=== PATIENT | male | born 1935 | race African-American/Black ===

== ENCOUNTER 2023-09-16 08:03 | Emergency (ER) | payer MEDICARE, SELFPAY ==
[2023-09-16] VITALS (18 sets, daily range): BP systolic 104–137; BP diastolic 64–93; PULSE 86–133; RESP 17–21; TEMP 36.3–36.4; O2SAT 99–100
--- NOTE | ~2023-09-16 | XR_ITS ---
EXAMINATION: XR chest 1V portable DATE: 09/16/2023 08:54 INDICATION: Chest pain. TECHNIQUE: A single frontal view of the chest was obtained. COMPARISON: Chest 2 views 11/24/2019 FINDINGS: There is mild atelectasis at the lung bases. No pleural effusion or pneumothorax. The heart size is normal. IMPRESSION: 1. Mild atelectasis at the lung bases. Reviewed, dictated and finalized at location E. OGEN CELL TENDER
--- NOTE | 2023-09-16 08:05 | ECG_ITS ---
Measurements Intervals [place] Rate: 131 P: MT: 0 QRS: -33 QRSD: 108 T: 128 QT: 320 QTc: 474 Interpretive Statements ATRIAL FLUTTER/TACHYCARDIA WITH RAPID VENTRICULAR RESPONSE LEFT AXIS DEVIATION INFERIOR INFARCT, AGE INDETERMINATE NONSPECIFIC ST & T-WAVE ABNORMALITY- LAT/HIGH LAT LEADS ABNORMAL ECG COMPARED TO ECG 11/24/2019 09:47:49 ATRIAL FLUTTER NOW PRESENT LEFT-AXIS DEVIATION NOW PRESENT INFERIOR INFARCT, AGE INDETERMINATE NOW PRESENT Electronically Signed On 09-16-2023 12:09:34 [employer]INTENANCE by David Coronel D.O.
[2023-09-16 08:19] LABS: Basophils Absolute Auto 0.1 K/mm3 (0.0-0.1); Basophils Percent Auto 0.8 % (0.2-1.2); Eosinophils Absolute Auto 0.4 K/mm3 (0-0.3); Eosinophils Percent Auto 4.9 % (0-4.4); Hemoglobin 14.2 g/dL (14.0-18.0); Immature Granulocyte Absolute 0.04 K/mm3 (0.00-0.031); Immature Granulocyte Percent A 0.5 % (0-0.5); Lymphocytes Absolute Auto 1.99 K/mm3 (0.9-3.2); Lymphocytes Percent Auto 27.2 % (18.3-44.2); Mean Corpuscular HGB Conc 30.2 g/dl (32-36); Mean Corpuscular Hemoglobin 26.3 pg (26-34); Mean Corpuscular Volume 87.2 fl (80-100); Mean Platelet Volume 11.7 fl (7.4-10.4); Monocytes Absolute Auto 0.7 K/mm3 (0.1-0.6); Monocytes Percent Auto 9.3 % (2.6-8.5); Neutrophils Absolute Auto 4.2 K/mm3 (1.3-6.7); Neutrophils Percent Auto 57.3 % (45.5-73.1); Platelet Count Result 197 k/mm3 (150-375); Red Blood Count 5.39 M/mm3 (4.6-6.20); Red Cell Distribution Width 15.3 % (11.5-14.5); White Blood Count 7.3 K/mm3 (4.5-10.0)
[2023-09-16 08:29] LABS: INR 0.9; Prothrombin Time 12.1 Seconds (11.1-14.7)
[2023-09-16 08:30] LABS: Partial Thromboplastin Time 31.9 SECONDS (22.3-36.8)
[2023-09-16] MEDS: dilTIAZem HCl INJ 25 MG/5 ML VIAL 10 MG IV PUSH (08:30)
[2023-09-16 08:31] LABS: Alanine Aminotransferase 22 U/L (6-50); Albumin Level 4.5 g/dL (3.5-5.1); Alkaline Phosphatase 61 U/L (38-126); Anion Gap 8 mmol/L (8-16); Aspartate Amino Transferase 20 U/L (17-59); Bilirubin,Total 0.6 mg/dL (0.2-1.3); Blood Urea Nitrogen 23 mg/dL (9-20); Carbon Dioxide 29 mmol/L (22-30); Chloride 102 mmol/L (98-107); Estimated CRCL calculation 47 ml/min; Estimated Glomerular Filt Rate > 60; Glucose 158 mg/dL (65-110); Lipase 422 U/L (23-300); Potassium 4.3 mmol/L (3.4-5.0); Sodium 139 mmol/L (137-145)
[2023-09-16] MEDS: ASPIRIN 81 MG CHEWABLE TABLET 324 MG PO (08:31)
[2023-09-16 08:42] LABS: Troponin I < 0.012 ng/mL (0.000-0.034)
--- NOTE | 2023-09-16 09:17 | ECG_ITS ---
Measurements Intervals [place] Rate: 88 P: 63 CA: 168 QRS: -24 QRSD: 94 T: 87 QT: 354 QTc: 428 Interpretive Statements SINUS RHYTHM POSSIBLE LEFT ATRIAL ENLARGEMENT NONSPECIFIC T-WAVE ABNORMALITY- HIGH LATERAL LEADS BASELINE ARTIFACT- I BORDERLINE ECG COMPARED TO ECG 09/16/2023 08:10:02 SINUS RHYTHM NOW PRESENT Electronically Signed On 09-17-2023 12:55:06 BURNER OPERATOR by David Coronel D.O.
[2023-09-16] MEDS: BELLADONNA ALK/PHENOB ELIX 10 ML, MAG HYDROX/ALUMINUM HYD/SIMETH 30 ML, LIDOCAINE HCL 2... PO (09:34)
--- NOTE | 2023-09-16 09:46 | ED.GENADULT ---
HPI - General Adult General Chief complaint: Chest Pain Stated complaint: chest pain Time Seen by Provider: 09/16/23 08:06 History of Present Illness HPI narrative: Patient is an 88-year-old male who presents ER with 2 different issues. First issue is acid reflux like chest discomfort. Reports began this morning. Burning in nature. He has been having this recurrently for months. He has had an outpatient stress test that was negative and he has not been referred to a GI doctor to have an endoscopy next couple weeks. He reports he took his blood pressure this morning discovered his heart rate was in the 130s. He does feel like his heart is racing. He has no shortness of breath. No history of arrhythmia. Denies fevers or chills or sweats. He takes no blood pressure medication or rate control medication Related Data Home Medications Medication Instructions Recorded Confirmed allopurinol 300 mg tablet 300 mg PO DAILY 11/24/19 11/24/19 aspirin 81 mg chewable tablet 81 mg PO HS 11/24/19 11/24/19 (Aspirin Childrens) metformin 500 mg tablet,extended 1,000 mg PO BID 11/24/19 11/24/19 release 24 hr omeprazole 20 mg capsule,delayed 20 mg PO DAILY 11/24/19 11/24/19 release simvastatin 40 mg tablet 40 mg PO HS 11/24/19 11/24/19 Allergies Allergy/AdvReac Type Severity Reaction Status Date / Time lisinopril AdvReac Swelling Verified 09/16/23 08:32 Review of Systems Review of Systems: All systems reviewed & are unremarkable except as noted in HPI and below Constitutional: Constitutional: Denies chills, Denies fatigue and Denies fever(s) ENT: Denies nasal congestion and Denies sore throat Cardiovascular: Cardiovascular: Reports chest pain, Reports rapid heart rate and Denies radiating jaw, neck or arm pain Respiratory: Respiratory: Denies cough and Denies dyspnea Gastrointestinal: Gastrointestinal: Denies abdominal pain, Reports heartburn, Denies nausea and Denies vomiting Genitourinary: Genitourinary: Reports no additional male genitourinary complaints Musculoskeletal: Musculoskeletal: Reports no additional musculoskeletal complaints [facility] Past Medical History Medical History (Updated 09/16/23 @ 11:15 by Arturo iVeira MD) Diabetes Duodenal ulcer Gout Hyperlipidemia Lymphadenopathy Left neck lymph node removed Surgical History Surgical History (System 10/18/21 @ 11:11 by Lyn Diggs) H/O cataract extraction Bilateral History of appendectomy History of repair of ACL On the right No pertinent past surgical history Family History Family History (System 10/18/21 @ 11:11 by Lyn Diggs) Sibling Acute myocardial infarction Cerebrovascular accident Diabetes mellitus Hypertension Mother Diabetes mellitus Social History Social History (System 10/18/21 @ 11:11 by Lyn Diggs) Social History: The patient has 3 biological children and 3 stepchildren. He is retired from a [employer] / [employer]. No alcohol or illicit drugs. His is his power estate planning attorney he desires to be a full code. Smoking status: Never smoker Alcohol intake: never Substance use: never Living arrangements: with family Occupation/Education: retired Gender identity (if verbalized by the patient): Male Spiritual care concerns: No Exam Narrative: GENERAL: Well-appearing, well-nourished, and in no acute distress. HEAD: Normocephalic, atraumatic. ENT: Mucous membranes moist. NECK: Supple. CHEST: Clear to auscultation. No respiratory distress. HEART: Tachycardic and regular. Normal peripheral pulses. ABDOMEN: Soft, nontender, nondistended. EXTREMITIES: Normal range of motion. No edema. SKIN: Warm, dry, no rash. NEURO: Alert and oriented x3. PSYCH: Normal mood and affect. Course Course Emergency Course: Patient resting comfortably. Heart rate improved with diltiazem. Burning sensation improved with GI cocktail. Discussed case with Amena Macias at [facility]
--- NOTE | 2023-09-16 11:04 | PC.NURSE ---
Pt states chest pain improved. Heart rate improved. Pt resting conversing with no distress noted.
[2023-09-16 11:49] LABS: Troponin I < 0.012 ng/mL (0.000-0.034)
== END 2023-09-16 11:57 | disposition home or self-care (01) ==
PROVIDERS: Emergency Provider Emergency Medicine; PCP Internal Medicine
DX: I48.92 Unspecified atrial flutter (principal); E11.9 Type 2 diabetes mellitus without complications; E78.5 Hyperlipidemia, unspecified; M10.9 Gout, unspecified; Z98.42 Cataract extraction status, left eye; Z98.41 Cataract extraction status, right eye; Z79.84 Long term (current) use of oral hypoglycemic drugs; Z79.82 Long term (current) use of aspirin; R94.31 Abnormal electrocardiogram [ECG] [EKG]
CPT/HCPCS: 36415; 71045; 80053; 83690; 84484; 85025; 85610; 85730; 93005; 96374; 99284; A9270

== ENCOUNTER 2023-10-15 11:11 | Day surgery (SDC) | payer MEDICARE, SELFPAY ==
[2023-09-12 12:42] VITALS: BMI 24.1
--- NOTE | 2023-10-15 11:40 | PM.HPGS ---
History of Present Illness History of Present Illness Consent: Risks, benefits, and alternatives have been discussed and questions answered. Patient agrees to proceed with procedure. Chief complaint: Gerd Narrative: Gene Yen is a 88 year old male presents for EGD. Has a long history of acid reflux and heartburn. Patient denies any dysphagia. He has no weight loss. He does have associated coronary artery disease. He is on Eliquis. He does take omeprazole daily. He frequently has to supplement this with Maalox. Maalox helps immediately. Patient presents today for EGD. Review of Systems Review of Systems: Review of systems is noncontributory. [facility] Past Medical History Medical History (Updated 10/15/23 @ 11:42 by Julian Brewster MD) Diabetes Duodenal ulcer Gout Hyperlipidemia Lymphadenopathy Left neck lymph node removed Surgical History Surgical History (System 10/18/21 @ 11:11 by Lyn Diggs) H/O cataract extraction Bilateral History of appendectomy History of repair of ACL On the right No pertinent past surgical history Family History Family History (System 10/18/21 @ 11:11 by Lyn Diggs) Sibling Acute myocardial infarction Cerebrovascular accident Diabetes mellitus Hypertension Mother Diabetes mellitus Social History Social History (System 10/18/21 @ 11:11 by Lyn Diggs) Social History: The patient has 3 biological children and 3 stepchildren. 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 No alcohol or illicit drugs. His is his power attorney lawyer he desires to be a full code. Smoking status: Never smoker Alcohol intake: never Substance use: never Living arrangements: with family Occupation/Education: retired Gender identity (if verbalized by the patient): Male Spiritual care concerns: No Meds Home Medications and Allergies Home Medications Medication Instructions Recorded Confirmed Type allopurinol 300 mg tablet 300 mg PO DAILY 11/24/19 10/02/23 History aspirin 81 mg chewable tablet 81 mg PO HS 11/24/19 10/02/23 History (Aspirin Childrens) metformin 500 mg tablet,extended 1,000 mg PO BID 11/24/19 10/02/23 History release 24 hr omeprazole 20 mg capsule,delayed 20 mg PO DAILY 11/24/19 10/02/23 History release simvastatin 40 mg tablet 40 mg PO HS 11/24/19 10/02/23 History apixaban 5 mg tablet (Eliquis) 5 mg PO BID #14 tabs 09/16/23 10/02/23 Rx diltiazem HCl 120 mg 120 mg PO DAILY 10/02/23 10/02/23 History capsule,extended release 12 hr Allergies Allergy/AdvReac Type Severity Reaction Status Date / Time lisinopril AdvReac Swelling Verified 10/02/23 08:09 Exam Narrative: Physical exam reveals patient to be alert. Vital signs stable. HEENT exam is unremarkable. Patient is anicteric. Lungs are clear to auscultation and to percussion. Is without murmur or extra sounds. Abdomen bowel sounds are present soft nontender with no organomegaly. Digital external rectal exam is normal. Const: General: comfortable Assessment and Plan Assessment and plan (1) GERD (gastroesophageal reflux disease): Code(s): K21.9 - Gastro-esophageal reflux disease without esophagitis Status: Acute Assessment and Plan: Patient with acid reflux that is chronic. EGD will be assess appropriateness of therapy. Continued anti-reflux measures encourage. Further recommendations may be given after endoscopy.
[2023-10-15 11:45] VITALS: BP 122/76; PULSE 84; RESP 16; TEMP 36.9; O2SAT 99
[2023-10-15] MEDS: LACTATED RINGERS 1,000 ML 150 ML IV CONT (11:58)
[2023-10-15 12:00] LABS: Glucose Point of Care 137 mg/dl (65-105)
--- NOTE | 2023-10-15 12:46 | WPDANESEPPF ---
Anes - Initial Pre Proc Eval Procedure: Operation Date: 10/15/23 13:00 Proposed Procedures p Esophagogastroduodenoscopy - Julian Brewster MD Date/Time: 10/15/23 12:46 Surgeon: Julian Brewster MD Pre Op Diagnosis: Gerd Patient Data Age: 88 Gender: M Height: 1.8 m Weight: 75 kg Last Vital Signs Temp 36.9 C 10/15/23 11:45 Pulse 84 10/15/23 11:45 Resp 16 10/15/23 11:45 BP 122/76 10/15/23 11:45 Pulse Ox 99 10/15/23 11:45 O2 Del Method Room Air 10/15/23 11:45 Allergies Allergy/AdvReac Type Severity Reaction Status Date / Time lisinopril AdvReac Swelling Verified 10/15/23 11:44 Home Medications Medication Instructions Recorded Confirmed Type allopurinol 300 mg tablet 300 mg PO DAILY 11/24/19 10/02/23 History aspirin 81 mg chewable tablet 81 mg PO HS 11/24/19 10/02/23 History (Aspirin Childrens) metformin 500 mg tablet,extended 1,000 mg PO BID 11/24/19 10/02/23 History release 24 hr omeprazole 20 mg capsule,delayed 20 mg PO DAILY 11/24/19 10/02/23 History release simvastatin 40 mg tablet 40 mg PO HS 11/24/19 10/02/23 History apixaban 5 mg tablet (Eliquis) 5 mg PO BID #14 tabs 09/16/23 10/02/23 Rx diltiazem HCl 120 mg 120 mg PO DAILY 10/02/23 10/02/23 History capsule,extended release 12 hr Laboratory Tests 10/15/23 11:56 POC Capillary Glucose 137 H mg/dl (65-105) Patient hx anesthesia problems: none Family hx anesthesia problems: none Results Review: All pre-operative results and documents have been reviewed as part of the pre-operative evaluation. [facility] Past Medical History Medical History Diabetes Duodenal ulcer Gout Hyperlipidemia Lymphadenopathy Left neck lymph node removed Surgical History Surgical History H/O cataract extraction Bilateral History of appendectomy History of repair of ACL On the right No pertinent past surgical history Family History Family History Sibling Acute myocardial infarction Cerebrovascular accident Diabetes mellitus Hypertension Mother Diabetes mellitus Social History Social History Social History: The patient has 3 biological children and 3 stepchildren. 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 No alcohol or illicit drugs. His is his power tax attorney he desires to be a full code. Smoking status: Never smoker Alcohol intake: never Substance use: never Living arrangements: with family Occupation/Education: retired Gender identity (if verbalized by the patient): Male Spiritual care concerns: No Anes - Eval Final PreProcedure Day of Procedure 10/15/23 12:46 Patient weight: normal Heart: regular rate and rhythm Lungs: clear to auscultation Airway: Mallampati scale class II Neurological: alert and oriented Last oral intake: >/= 8 hours ASA classification: III Emergent: no Anesthetic plan: proceed Anesthesia type and monitoring: general GIVS and standard monitoring Results Review: All pre-operative results and documents have been reviewed as part of the pre-operative evaluation. Informed Consent: The patient's anesthetic plan and its attendant risks and benefits were discussed with the patient/family/POA. Questions were solicited and answers provided to the satisfaction of the patient/family/POA.
[2023-10-15 13:04] VITALS: BP 119/68; PULSE 82; RESP 16; O2SAT 100
--- NOTE | 2023-10-15 13:06 | WPDANESPN ---
Anes - Prog Note Post-Op Date/Time: 10/15/23 13:06 Cardiovascular status: normal Respiratory status: normal Airway patency: baseline Mental status: baseline Post-Op hydration status: normal Vital Signs: Last Vital Signs Temp 36.9 C 10/15/23 11:45 Pulse 82 10/15/23 13:04 Resp 16 10/15/23 13:04 BP 119/68 10/15/23 13:04 Pulse Ox 100 10/15/23 13:04 O2 Del Method Room Air 10/15/23 13:04 Pain Score (VAS): 0/10 10/15/23 11:56 POC Capillary Glucose 137 H Patient Feedback: Patient satisfied with anesthetic care.
[2023-10-15 13:25] VITALS: BP 122/65; PULSE 80; RESP 16; O2SAT 99
[2023-10-15 13:42] VITALS: BP 119/72; PULSE 78; RESP 16; O2SAT 99
== END 2023-10-15 13:51 | disposition home or self-care (01) ==
PROVIDERS: PCP Internal Medicine; Visit Provider Internal Medicine Gastroenterology
PROC: 0DJ08ZZ Inspection of Upper Intestinal Tract, Via Natural or Artificial Opening Endoscopic (ICD-10-PCS; CPT 43235; principal; 2023-10-15 13:00)
DX: K21.9 Gastro-esophageal reflux disease without esophagitis (principal); R12 Heartburn
CPT/HCPCS: 43235

== ENCOUNTER 2023-10-23 08:10 | Outpatient (CLI) | payer MEDICARE, SELFPAY ==
--- NOTE | ~2023-10-23 | XR_ITS ---
EXAMINATION: XR UGIAC wo kub DATE: 10/23/2023 09:04 INDICATION: Gastric esophageal reflux disease without esophagitis TECHNIQUE: The patient drank thick barium, gas-producing crystals, and thin barium. A total of 737 fl uoroscopic images of the esophagus, stomach, and proximal small bowel were obtained. Fluoroscopy expo sure time was 1.8 minutes. Total DAP was 14.207 Gycm^2 COMPARISON: None. 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 The esophagus is otherwise nor mal without mass or stricture. Esophageal motility is normal. There is elevation of the central port ion of the diaphragm on both the left and right resulting in a significant greater than typical degre e of cephalad extension of the gastric fundus and proximal body of level of the gastroesophageal junc tion. The configuration of the diaphragm with deep sulci can be best appreciated on prior chest radio graph dated 09/16/2023. There is however no hiatal hernia. The stomach is otherwise normal. There was no gastroesophageal reflux with provocative maneuvers. The proximal small bowel is unremarkable. IMPRESSION: 1. No hiatal hernia. Findings on prior endoscopy. This results from elevation of the central aspect o f both the left and right sides of the diaphragm resulting in positioning of the gastric fundus and p roximal body significantly above the level of the gastroesophageal junction. When 2. 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 Reviewed, dictated and finalized at location A. BUILDER IMPRESSION: 1. No hiatal hernia. Findings on prior endoscopy. This results from elevation o f the central aspect of both the left and right sides of the diaphragm resultin g in positioning of the gastric fundus and proximal body significantly above th e level of the gastroesophageal junction. When 2. 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
== END 2023-10-23 08:11 | disposition home or self-care (01) ==
PROVIDERS: PCP Internal Medicine; Visit Provider Internal Medicine Gastroenterology
DX: K22.5 Diverticulum of esophagus, acquired (principal); K21.9 Gastro-esophageal reflux disease without esophagitis
CPT/HCPCS: 74246

== ENCOUNTER 2024-01-21 09:42 | Inpatient (IN) | payer MEDICARE, SELFPAY ==
[2024-01-21] VITALS (21 sets, daily range): BP systolic 107–145; BP diastolic 72–97; PULSE 98–146; RESP 18–28; TEMP 36.4–36.9; O2SAT 95–99; BMI 22.5
--- NOTE | ~2024-01-21 | XR_ITS ---
EXAMINATION: XR abdomen gastric tube insert DATE: 01/29/2024 00:57 INDICATION: Nasogastric tube placement. TECHNIQUE: An upright view of the abdomen was obtained. COMPARISON: CT abdomen and pelvis 01/21/2024 FINDINGS: The lower abdomen is excluded. There are multiple dilated loops of small bowel. The nasogas tric tube tip is in the stomach. Skin anthony overlie the abdomen. IMPRESSION: 1. Nasogastric tube tip in the stomach. 2. Dilated small bowel, likely adynamic ileus. Reviewed, dictated and finalized at location E.
--- NOTE | ~2024-01-21 | CT_ITS ---
CT of the Abdomen and Pelvis: Indication: Obstruction, bowel Technique: 2.5 mm axial scans were obtained through the abdomen and pelvis following intravenous adm inistration of 100 cc of Omnipaque 350. Dose reduction technique was used on this scan by utilizing a utomated exposure control and iterative reconstruction technique. The dose-length product (DLP) was 2 98.19 mGy-cm. Findings: Scans through the lung bases are unremarkable. There is minimal intrahepatic biliary dilatation. Small hepatic cysts are present. The spleen, pancre as, adrenals and kidneys are within normal limits. Gallstones are present. There are atherosclerotic calcifications of the aorta. No lymphadenopathy. Multiple dilated small bowel loops are present, with associated distention of stomach. There is trans ition point in the low anterior abdomen in the midline (sagittal images 77-74). Distal small bowel lo ops and large bowel are decompressed. Images through the pelvis were performed. Small right inguinal hernia contains small amount of asciti c fluid and fat. Trace pelvic ascites present otherwise. Urinary bladder unremarkable. No pelvic mass seen. Impression: Small bowel obstruction, transition point, as detailed above. Cholelithiasis with minimal intrahepatic biliary dilatation. There is any concern for common duct sto ne, then consider MRCP for further evaluation. Small right inguinal hernia with small amount of ascites. Reviewed, dictated and finalized at location . Impression: Small bowel obstruction, transition point, as detailed above. Cholelithiasis with minimal intrahepatic biliary dilatation. There is any ar rn for common duct stone, then consider MRCP for further evaluation. Small right inguinal hernia with small amount of ascites.
--- NOTE | ~2024-01-21 | XR_ITS ---
Supine and upright views of the abdomen Clinical history: Small bowel obstruction Findings: Multiple dilated loops of small bowel are present. No definite free air. NG tube in place. No abnormal mass lesion or calcification is seen. Osseous structures are intact. Impression: Small bowel obstruction with NG tube in place. Reviewed, dictated and finalized at [facility]. Impression: Small bowel obstruction with NG tube in place.
--- NOTE | ~2024-01-21 | XR_ITS ---
XR abdomen gastric tube insert DATE: 01/21/2024 13:34 INDICATION: NG tube placement TECHNIQUE: Portable upright AP view on 01/21/2024 at 1331 hours COMPARISON: None FINDINGS: An NG tube is present in the stomach, well beyond the diaphragmatic hiatus, distal tip over lying the body of the stomach. Dilated gas distended small bowel segments are noted suggesting small bowel obstruction. IMPRESSION: NG tube in body of stomach Reviewed, dictated and finalized at Location [facility]. Reviewed, dictated and finalized at location B. IMPRESSION: NG tube in body of stomach
--- NOTE | 2024-01-21 11:58 | ECG_ITS ---
Measurements Intervals [place] Rate: 142 P: [place]: 0 QRS: -6 QRSD: 147 T: 136 QT: 328 QTc: 505 Interpretive Statements ATRIAL FLUTTER WITH RAPID VENTRICULAR RESPONSE INTRAVENTRICULAR CONDUCTION DELAY BORDERLINE ST-T WAVE ABNORMALITY- ANTEROLAT/HIGH LAT LEADS ABNORMAL ECG COMPARED TO ECG 09/16/2023 09:19:24 ATRIAL FLUTTER NOW PRESENT INTRAVENTRICULAR CONDUCTION DELAY NOW PRESENT Electronically Signed On 01-21-2024 13:06:15 CDT by David Coronel D.O.
[2024-01-21 12:19] LABS: Basophils Percent Auto 0.4 % (0.2-1.2); Eosinophils Percent Auto 0.2 % (0-4.4); Hematocrit 50.3 % (42.0-52.0); Hemoglobin 15.4 g/dL (14.0-18.0); Immature Granulocyte Absolute 0.03 K/mm3 (0.00-0.031); Immature Granulocyte Percent A 0.3 % (0-0.5); Lymphocytes Absolute Auto 1.12 K/mm3 (0.9-3.2); Lymphocytes Percent Auto 10.5 % (18.3-44.2); Mean Corpuscular HGB Conc 30.6 g/dl (32-36); Mean Corpuscular Hemoglobin 27.1 pg (26-34); Mean Corpuscular Volume 88.4 fl (80-100); Mean Platelet Volume 10.5 fl (7.4-10.4); Monocytes Absolute Auto 1.1 K/mm3 (0.1-0.6); Monocytes Percent Auto 9.9 % (2.6-8.5); Neutrophils Absolute Auto 8.4 K/mm3 (1.3-6.7); Neutrophils Percent Auto 78.7 % (45.5-73.1); Platelet Count Result 252 k/mm3 (150-375); Red Blood Count 5.69 M/mm3 (4.6-6.20); Red Cell Distribution Width 14.4 % (11.5-14.5); White Blood Count 10.6 K/mm3 (4.5-10.0)
[2024-01-21 12:32] LABS: Alanine Aminotransferase 19 U/L (6-50); Albumin Level 4.5 g/dL (3.5-5.1); Alkaline Phosphatase 65 U/L (38-126); Anion Gap 10 mmol/L (8-16); Aspartate Amino Transferase 24 U/L (17-59); Blood Urea Nitrogen 36 mg/dL (9-20); Calcium 10.1 mg/dL (8.4-10.2); Carbon Dioxide 29 mmol/L (22-30); Chloride 98 mmol/L (98-107); Estimated CRCL calculation 48 ml/min; Estimated Glomerular Filt Rate > 60; Glucose 177 mg/dL (65-110); Lipase 296 U/L (23-300); Potassium 4.4 mmol/L (3.4-5.0); Sodium 137 mmol/L (137-145)
--- NOTE | 2024-01-21 12:37 | ED.ABDPAIN ---
HPI - Abdominal Pain General Chief Complaint: Abdominal Pain Stated Complaint: ulcer attack Time Seen by Provider: 01/21/24 11:48 History of Present Illness HPI narrative: patient is an 88-year-old male who presents ER with abdominal pain. Ongoing for 3 days. Start with sharp cramping in lower abdomen. It is continued it is worsened by any eating. He notice a that he is more distended. He has frequent belching. No vomiting. Denies fevers or chills or sweats. Has history of appendectomy. No history of bowel obstruction. He has not passed gas or had a bowel movement since Sunday. Patient has also not been taking his medications and his last Eliquis was on Sunday afternoon. Related Data Home Medications Medication Instructions Recorded Confirmed allopurinol 300 mg tablet 300 mg PO DAILY 11/24/19 01/21/24 metformin 500 mg tablet,extended 1,000 mg PO BID 11/24/19 01/21/24 release 24 hr omeprazole 20 mg capsule,delayed 20 mg PO DAILY 11/24/19 01/21/24 release simvastatin 40 mg tablet 40 mg PO HS 11/24/19 01/21/24 diltiazem HCl 120 mg 120 mg PO DAILY 10/02/23 01/21/24 capsule,extended release 12 hr dapagliflozin propanediol 10 mg 10 mg PO DAILY 01/21/24 01/21/24 tablet (Farxiga) ferrous sulfate 325 mg (65 mg 325 mg PO DAILY 01/21/24 01/21/24 iron) tablet,delayed release meloxicam 15 mg tablet 15 mg PO DAILY 01/21/24 01/21/24 ranolazine 500 mg tablet,extended 500 mg PO BID 01/21/24 01/21/24 release,12 hr Allergies Allergy/AdvReac Type Severity Reaction Status Date / Time lisinopril AdvReac Swelling Verified 01/21/24 16:05 Review of Systems Review of Systems: All systems reviewed & are unremarkable except as noted in HPI and below Constitutional: Constitutional: Reports no additional constitutional complaints ENT: Reports system reviewed and no additional complaints, except as documented Cardiovascular: Cardiovascular: Reports no additional cardiovascular complaints Respiratory: Respiratory: Reports no additional respiratory complaints Gastrointestinal: Gastrointestinal: Reports abdominal pain, Reports bloating, Reports constipation, Denies diarrhea, Reports nausea and Denies vomiting Genitourinary: Genitourinary: Reports no additional male genitourinary complaints [facility] Past Medical History Medical History (Updated 01/21/24 @ 19:48 by Arturo Vieira MD) Chronic anticoagulation Duodenal ulcer Gastroesophageal reflux disease Gout Hyperlipidemia Osteoarthritis Paroxysmal atrial fibrillation Type 2 diabetes mellitus Surgical History Surgical History (Updated 01/21/24 @ 16:54 by Rena Preciado PA-C) History of appendectomy History of bilateral cataract extraction History of esophagogastroduodenoscopy (10/2023) History of repair of ACL Right Family History Family History Sibling Acute myocardial infarction Cerebrovascular accident Diabetes mellitus Hypertension Mother Diabetes mellitus Social History Social History (Updated 01/21/24 @ 16:55 by Rena Preciado PA-C) Social History: Surrogate medical decision maker: Ling Dallas, spouse. Code status: Full code. Smoking status: Never smoker Alcohol intake: never Substance use: never Substance use type: does not use Do You Feel Safe in your Home?: Yes Lack of Transportation: No Lack of Food: Never True Current Housing: I Have Housing Concerned About Future Housing: No Difficulty Paying Gas/Electric Bills: No Difficulty Paying for Meds: No Currently Unemployed: No Education: Don't Know Difficulty w/ Childcare or Family Care: No Living arrangements: with family Additional living arrangements comments: Lives in [place]. He has three biological children. Occupation/Education: retired Additional occupation/education comments: Retired from [employer] / [employer]. Spiritual care concerns: No
--- NOTE | 2024-01-21 13:45 | PM.CNGS ---
Assessment and Plan Assessment and plan (1) Small bowel obstruction: Code(s): K56.609 - Unspecified intestinal obstruction, unspecified as to partial versus complete obstruction Status: Acute Assessment and Plan: CT showed evidence of a small bowel obstruction with transition point in the lower midline anterior abdomen, which is a similar location to his lower midline scar from his previous exploratory laparotomy with appendectomy. WBC 10,600 and I will add a lactic acid. He does not have any diffuse peritoneal signs on exam. Will continue with NG tube decompression, bowel rest, IV fluids, and analgesics as needed. Will continue to monitor with serial abdominal exams and imaging. May consider a water soluble small bowel follow through to further evaluate the small bowel obstruction depending on how he progresses. (2) Diabetes: Code(s): E11.9 - Type 2 diabetes mellitus without complications Status: Chronic (3) GERD (gastroesophageal reflux disease): Code(s): K21.9 - Gastro-esophageal reflux disease without esophagitis Status: Acute (4) Hyperlipidemia: Code(s): E78.5 - Hyperlipidemia, unspecified Status: Chronic (5) Right inguinal hernia: Code(s): K40.90 - Unilateral inguinal hernia, without obstruction or gangrene, not specified as recurrent Status: Acute Assessment and Plan: Small right inguinal hernia containing fat and ascitic fluid on CT. Currently asymptomatic. No an acute issues, but made the patient aware of this finding and discussed that he could follow-up as an outpatient if he has any issues and wanted to discuss options for surgical repair. Plan I have discussed the patient's case and plan of care with Dr. Reed. Thank you for allowing us to see the patient in consultation and we will continue to follow along with you. History of Present Illness Consult details Consult date: 01/21/24 Reason for consult: other (SBO) Requesting physician: Arturo Vieira MD Narrative: This is an 88-year-old man who has a history of atrial fibrillation on Eliquis, type 2 diabetes mellitus, hyperlipidemia, and gout, who presented to the ER today with complaints of generalized abdominal pain x 3 days. His pain started on Sunday and progressively worsened over the next few days. As his pain got worse, he began to feel more bloated and felt his abdomen became more distended. He had a small bowel movement 2 days ago, but no bowel function since. He came into the ER and labs significant for a WBC count of 10,600. CT scan of the abdomen and pelvis showed a small bowel obstruction with transition point in the mid lower anterior abdomen. Our service was consulted by the ED physician and an NG tube was placed. The patient is now seen in the ER. He denies flatus. He denies ever having a bowel obstruction in the past. About 18 years ago, he reports having an exploratory laparotomy with findings of appendicitis and having an appendectomy. He had an ileus postoperatively that improved with NG tube decompression. No other abdominal surgeries. He is also on Eliquis and last took this medication Sunday evening. Review of Systems Review of Systems: All systems reviewed & are unremarkable except as noted in HPI and below PMFSH Past Medical History Medical History Diabetes Duodenal ulcer Gout Hyperlipidemia Lymphadenopathy Left neck lymph node removed Surgical History Surgical History H/O cataract extraction Bilateral History of appendectomy History of repair of ACL On the right No pertinent past surgical history Family History Family History Sibling Acute myocardial infarction Cerebrovascular accident Diabetes mellitus Hypertension Mother Diabetes mellitus Social History Social History (Reviewed
[2024-01-21] MEDS: dilTIAZem HCl INJ 25 MG/5 ML VIAL 10 MG IV PUSH (14:11)
[2024-01-21] MEDS: SODIUM CHLORIDE 0.9% IV 1,000 ML 125 ML IV CONT (14:12)
[2024-01-21 15:09] LABS: Lactic Acid Reflex 1.3 mmol/L (0.7-2.0)
--- NOTE | 2024-01-21 16:04 | ADMGEN ---
This patient, Gene Yen, was admitted to [facility] Surg Room 319-01. Patient/family oriented to hospital policies and general routines including ID bracelet, bed and alarms, visiting hours, pain management, procedures, bathroom and other care routines, personal items, smoking policy, room service/diet, and visiting hours. Information on how to activate the Rapid Response Team has been discussed. Patient/Family are encouraged to report perceived risks to care and to ask questions if they do not understand what they are told or what they should do.
[2024-01-21 16:07] LABS: Glucose Point of Care 206 mg/dl (65-105)
--- NOTE | 2024-01-21 16:50 | PM.IMHP ---
H&P: HPI History of Present Illness Date/Time: 01/21/24 16:50 Chief Complaint: Abdominal pain. 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 The patient provides the following history. He reports a gradual onset progressive, diffuse sharp abdominal pain with bloating, distention, and nausea with 1 episode of nonbilious and nonbloody emesis. His symptoms seem to be worse with each day and are not getting better. His last bowel movement about 2 days ago and reports that it was small but otherwise unremarkable. He has not had exact symptoms like this before but reports that 18 years ago he had abdominal pain leading to an exploratory laparotomy at which time he was found to have appendicitis. He had a postoperative ileus at that time which improved with conservative therapy. He has not had any other abdominal surgeries. He denies fever, chills, sweats, chest pain, pleuritic pain, shortness of breath, hematemesis, melena, and hematochezia. No known history of peptic ulcers, gallbladder disease, or pancreatitis. In the ED: He was afebrile on arrival with stable blood pressures. Heart rate was initially in the 130s to 140s and he was found to be in atrial fibrillation with rapid ventricular response. He was given 10 mg IV diltiazem with some improvement in his heart rate. CT of the abdomen and pelvis showed small-bowel obstruction with a transition point in the mid lower anterior abdomen. An NG tube has been placed for decompression and he is being admitted in this setting for further treatment and surgery consultation. Review of Systems Review of Systems: Twelve systems were reviewed and are negative except for as per HPI. [facility] Past Medical History Medical History Chronic anticoagulation Duodenal ulcer Gastroesophageal reflux disease Gout Hyperlipidemia Osteoarthritis Paroxysmal atrial fibrillation Type 2 diabetes mellitus Surgical History Surgical History History of appendectomy History of bilateral cataract extraction History of esophagogastroduodenoscopy (10/2023) History of repair of ACL Right Family History Family History Sibling Acute myocardial infarction Cerebrovascular accident Diabetes mellitus Hypertension Mother Diabetes mellitus Social History Social History Social History: Surrogate medical decision maker: Ling Dallas, spouse. Code status: Full code. Smoking status: Never smoker Alcohol intake: never Substance use: never Substance use type: does not use Do You Feel Safe in your Home?: Yes Lack of Transportation: No Lack of Food: Never True Current Housing: I Have Housing Concerned About Future Housing: No Difficulty Paying Gas/Electric Bills: No Difficulty Paying for Meds: No Currently Unemployed: No Education: Don't Know Difficulty w/ Childcare or Family Care: No Living arrangements: with family Additional living arrangements comments: Lives in [place]. He has three biological children. Occupation/Education: retired Additional occupation/education comments: Retired from [employer]. Spiritual care concerns: No Meds Home Medications and Allergies Home Medications Medication Instructions Recorded Confirmed Type allopurinol 300 mg tablet 300 mg PO DAILY 11/24/19 01/21/24 History metformin 500 mg tablet,extended 1,000 mg PO BID 11/24/19 01/21/24 History rele
--- NOTE | 2024-01-21 16:57 | ECG_ITS ---
Measurements Intervals [place] Rate: 108 P: 63 ND: 157 QRS: 3 QRSD: 103 T: 94 QT: 329 QTc: 442 Interpretive Statements SINUS TACHYCARDIA ATRIAL PREMATURE COMPLEX BORDERLINE ST-T WAVE ABNORMALITY- ANTEROLAT/HIGH LAT LEADS ABNORMAL ECG COMPARED TO ECG 01/21/2024 12:00:33 SINUS TACHYCARDIA NOW PRESENT Electronically Signed On 01-21-2024 19:28:33 CDT by David Coronel D.O.
[2024-01-21] MEDS: ERTAPENEM 1 GM/NS 50 ML 1 GM/50 ML BAG IVPB (17:39)
[2024-01-22] VITALS (17 sets, daily range): BP systolic 96–137; BP diastolic 61–80; PULSE 85–150; RESP 16–20; TEMP 36.6–37.1; O2SAT 95–97
[2024-01-22] MEDS: SODIUM CHLORIDE 0.9% IV 1,000 ML 75 ML IV CONT ×2 (00:01→12:46)
[2024-01-22 00:10] LABS: Glucose Point of Care 172 mg/dl (65-105)
[2024-01-22 06:07] LABS: Appearance Urine Clear (Clear); Bacteria Urine None Seen /hpf; Bilirubin Urine Negative (Negative); Blood Urine Negative (Negative); Color Urine Yellow (Yellow); Glucose Urine UA 3+ mg/dL (Negative); Ketones Urine 2+ mg/dL (Negative); Leukocyte Esterase Ur Negative LEU/UL (Negative); Nitrate Urine Negative (Negative); Non Pathogenic Casts 0-2; Protein Urine 1+ mg/dL (Negative); RBC Urine 0-2 /hpf (0-2); Squamous Epithelial Cell Urine None Seen /hpf (Few); Urobilinogen Urine 0.2 mg/dL (<2.0); WBC Urine 0-5 /hpf (0-3)
[2024-01-22 06:14] LABS: Add Urine Microscopic? YES; Specific Grav Ur 1.057 (1.001-1.035)
[2024-01-22 07:02] LABS: Basophils Percent Auto 0.4 % (0.2-1.2); Eosinophils Percent Auto 0.6 % (0-4.4); Hematocrit 44.5 % (42.0-52.0); Hemoglobin 13.7 g/dL (14.0-18.0); Immature Granulocyte Absolute 0.02 K/mm3 (0.00-0.031); Immature Granulocyte Percent A 0.3 % (0-0.5); Lymphocytes Absolute Auto 0.66 K/mm3 (0.9-3.2); Lymphocytes Percent Auto 9.3 % (18.3-44.2); Mean Corpuscular HGB Conc 30.8 g/dl (32-36); Mean Corpuscular Hemoglobin 27.1 pg (26-34); Mean Corpuscular Volume 88.1 fl (80-100); Mean Platelet Volume 10.9 fl (7.4-10.4); Monocytes Absolute Auto 1.1 K/mm3 (0.1-0.6); Monocytes Percent Auto 15.3 % (2.6-8.5); Neutrophils Absolute Auto 5.2 K/mm3 (1.3-6.7); Neutrophils Percent Auto 74.1 % (45.5-73.1); Platelet Count Result 222 k/mm3 (150-375); Red Blood Count 5.05 M/mm3 (4.6-6.20); Red Cell Distribution Width 14.4 % (11.5-14.5); White Blood Count 7.1 K/mm3 (4.5-10.0)
[2024-01-22 07:12] LABS: Lactic Acid Reflex 1.1 mmol/L (0.7-2.0)
[2024-01-22 07:15] LABS: Anion Gap 7 mmol/L (8-16); Blood Urea Nitrogen 35 mg/dL (9-20); Calcium 9.2 mg/dL (8.4-10.2); Carbon Dioxide 29 mmol/L (22-30); Chloride 103 mmol/L (98-107); Estimated CRCL calculation 55 ml/min; Estimated Glomerular Filt Rate > 60; Glucose 163 mg/dL (65-110); Potassium 3.8 mmol/L (3.4-5.0); Sodium 139 mmol/L (137-145)
--- NOTE | 2024-01-22 07:38 | PM.IMPN ---
Progress Note: A&P Assessment and Plan (1) Small bowel obstruction: Code(s): K56.609 - Unspecified intestinal obstruction, unspecified as to partial versus complete obstruction Status: Acute Assessment and Plan: NPO except ice chips, NG tube to suction, surgery has evaluated patient uncertain if he will dose to the operating room or not at this time. Surgery started patient on ertapenem once daily IV. (2) Atrial fibrillation with rapid ventricular response: Code(s): I48.91 - Unspecified atrial fibrillation Status: Acute Assessment and Plan: Generally rate controlled with occasional paroxysms that increase heart rate. Continue telemetry monitoring. P.r.n. IV metoprolol. Oral medications held at this time due to bowel obstruction. No anticoagulation due to possible need for operative intervention. Rhythm is switching frequently from sinus to atrial fibrillation per review of telemetry. (3) Type 2 diabetes mellitus: Code(s): E11.9 - Type 2 diabetes mellitus without complications Status: Acute Assessment and Plan: Fingerstick glucose every 6 hours while NPO with sliding scale insulin. (4) Chronic anticoagulation: Code(s): Z79.01 - [facility] (current) use of anticoagulants Status: Acute Assessment and Plan: On hold at this time due to bowel obstruction and possible need to proceed to the OR. (5) Gastroesophageal reflux disease: Code(s): K21.9 - Gastro-esophageal reflux disease without esophagitis Status: Acute Assessment and Plan: IV pantoprazole while NPO Plan Defer management of small-bowel obstruction to General surgery, continue care as above, maintain telemetry monitoring until stable. Time Spent With Patient Time with patient: 25 - 35 minutes Subjective Date/time seen: 01/22/24 07:38 Interval history: Patient seen early this morning still not passing gas but states his abdominal pain has significantly decreased. Repeat abdominal imaging still shows dilated small bowel loops. Patient denies nausea. NG tube to suction minimal output. Oral medications are held at this time due to small-bowel obstruction. No anticoagulation due to possible need for surgery. Ordered SCDs to be placed. Review of Systems Review of Systems: All systems reviewed & are unremarkable except as noted in HPI and below Exam Narrative: General: Well-developed gentleman appearing younger than his stated age in the semi-Purdy position in bed in no distress. HEENT: PERRL, EOMI. Sclera anicteric. NG tube in the left naris with minimal drainage. Tacky mucous membranes. Neck: Supple. No JVD Respiratory: Lungs are clear to auscultation bilaterally. Cardiovascular: variable heart rate from 80 to 130 switching from sinus rhythm to atrial fibrillation telemetry monitoring per my own assessment. Gastrointestinal: Abdomen is slightly distended with hypoactive bowel sounds. Mild tenderness to palpation throughout, more so in the right mid to lower quadrant. No guarding or rebound tenderness. Skin: Warm and dry. No rash or lesions on limited exam. Extremities: No cyanosis, clubbing, or edema. Radial and pedal pulses intact. Neurological: Alert. Cranial nerves 2-12 are grossly intact. No gross focal deficits to casual conversation. Psychiatric: Pleasant and cooperative with normal mood and affect. Judgment and insight intact. Objective Data Vital Signs Vital Signs: Vital Signs - 24 hr 01/21/24 09:44 01/21/24 11:52 01/21/24 11:57 Temperature 36.4 C Pulse Rate 140 H 144 H 142 H Respiratory Rate 20 21 H 28 H Blood Pressure 140/77 133/90 Pulse Oximetry 99 96 Oxygen Delivery Room Air 01/21/24 12:00 01/21/24 12:15 01/21/24 12:16 Temperature Pulse Rate 142 H 145 H 145 H Respiratory Rate 21 H 23 H 22 H Blood Pressure 121/97 H Pulse Oximetry 97 97 Oxygen Delivery 01/21/24 12:30 01/21/24 12:47 01/21/24 12:55 Tempera
[2024-01-22] MEDS: PANTOPRAZOLE SODIUM IV 40 MG VIAL IV PUSH (08:55)
--- NOTE | 2024-01-22 11:45 | WPDPN ---
Progress Note: A&P Assessment and Plan (1) Small bowel obstruction: Code(s): K56.609 - Unspecified intestinal obstruction, unspecified as to partial versus complete obstruction Status: Acute Assessment and Plan: Patient had no clinical improvement in his small-bowel obstruction. Not passing any flatus or having any bowel movements. This seems to be a fairly high-grade small-bowel obstruction. Imaging today shows continued dilation of small bowel despite decompression with a nasogastric tube overnight. There is a clear transition point underneath his old midline scar on CT scan. Is likely due to scarring at the incision. I recommended proceeding going to the operating room today for a exploratory laparotomy and adhesiolysis. He may also need a small bowel resection if the bowel is nonviable or there is any enterotomies made during the surgery. He understands this and agrees to proceed with the surgery as I do not think this is going to get any better without surgical management. Risks, benefits, indications, and expected outcomes were discussed in detail with the patient and/or family. They understand and I have answered all other questions. They wished to proceed with surgery as outlined above. Subjective Date/time seen: 01/22/24 11:45 Interval history: Patient has had no improvement overnight in terms of his small-bowel obstruction. No flatus and no bowel movements. Nasogastric tube in place. Has no nausea but still has some diffuse abdominal tenderness and pain. White blood cell count is normal. Electrolytes are okay. Obstructive series today showed continued multiple loops of dilated small bowel with air-fluid levels. Exam GI: Other: Abdomen continues to be moderately distended. Diffuse mild tenderness to palpation. No diffuse peritoneal signs. Objective Data Vital Signs Vital Signs: Vital Signs - 24 hr 01/21/24 11:52 01/21/24 11:57 01/21/24 12:00 Temperature Pulse Rate 144 H 142 H 142 H Respiratory Rate 21 H 28 H 21 H Blood Pressure 133/90 Pulse Oximetry 96 97 Oxygen Delivery 01/21/24 12:15 01/21/24 12:16 01/21/24 12:30 Temperature Pulse Rate 145 H 145 H 146 H Respiratory Rate 23 H 22 H 20 Blood Pressure 121/97 H Pulse Oximetry 97 97 Oxygen Delivery 01/21/24 12:47 01/21/24 12:55 01/21/24 13:00 Temperature Pulse Rate 139 H 143 H 144 H Respiratory Rate 24 H 22 H 19 Blood Pressure 114/76 Pulse Oximetry 98 98 96 Oxygen Delivery 01/21/24 13:01 01/21/24 13:26 01/21/24 13:32 Temperature Pulse Rate 144 H 124 H 126 H Respiratory Rate 19 21 H 18 Blood Pressure 107/74 Pulse Oximetry 97 95 98 Oxygen Delivery 01/21/24 13:45 01/21/24 13:47 01/21/24 16:06 Temperature 36.9 C Pulse Rate 126 H 130 H 107 H Respiratory Rate 20 23 H 18 Blood Pressure 145/72 H 128/74 Pulse Oximetry 95 96 95 Oxygen Delivery 01/21/24 16:00 01/21/24 17:21 01/21/24 20:00 Temperature Pulse Rate 100 107 H Respiratory Rate 18 Blood Pressure Pulse Oximetry 95 Oxygen Delivery Room Air Room Air 01/21/24 21:29 01/21/24 20:00 01/22/24 00:00 Temperature 36.8 C Pulse Rate 98 112 H 105 H Respiratory Rate 20 Blood Pressure 114/77 Pulse Oximetry 95 Oxygen Delivery 01/22/24 04:00 01/22/24 06:00 01/22/24 08:55 Temperature 36.6 C Pulse Rate 94 91 Respiratory Rate 20 Blood Pressure 129/61 Pulse Oximetry 97 Oxygen Delivery Room Air 01/21/24 16:08 Temperature 36.9 C Pulse Rate 107 H Respiratory Rate 18 Blood Pressure 128/74 Pulse Oximetry 95 Oxygen Delivery Intake/Output Intake/Output: Intake & Output 01/19/24 01/20/24 01/21/24 01/22/24 23:59 23:59 23:59 23:59 Intake Total 1000 0 Output Total 200 500 Balance 800 -500 Meds/Results Medications: Active Medications Generic Name Dose Route Start Last Admin Trade Name Freq PRN Reason Stop Dose Admin Dextrose 12.5 gm 03
--- NOTE | 2024-01-22 11:48 | WPDHPUPDATE1 ---
History and Physical Update Update Date/Time: 01/22/24 11:48 History and Physical has been reviewed, including an updated exam of the patient. There are NO changes in the patient's condition. Risks, benefits, and alternatives have been discussed and questions answered. Patient agrees to proceed with procedure.
[2024-01-22 12:02] LABS: Glucose Point of Care 148 mg/dl (65-105)
[2024-01-22] MEDS: METOPROLOL TARTRATE INJ 5 MG/5 ML VIAL IV PUSH (12:46)
[2024-01-22] MEDS: dilTIAZem HCl INJ 25 MG/5 ML VIAL 10 MG IV PUSH ×3 (13:55→18:13)
[2024-01-22] MEDS: ERTAPENEM 1 GM/NS 50 ML 1 GM/50 ML BAG IVPB (16:40)
--- NOTE | 2024-01-22 17:25 | PC.NURSE ---
Dr Arroyo notified of consult and new orders received.
--- NOTE | 2024-01-22 18:12 | PC.NURSE ---
This patient, Gene Yen, was transferred to IMU 212 on 01/22/24 at 1800. Personal belongings sent with patient. Report given to Cely GRIFFIN. Appropriate documentation sent with patient.
[2024-01-22] MEDS: dilTIAZem 100 MG/100 ML 100 MG/100 ML BAG 10 MG IV CONT (18:13)
[2024-01-22 18:20] LABS: Glucose Point of Care 154 mg/dl (65-105)
[2024-01-22] MEDS: ONDANSETRON INJ 4 MG/2 ML VIAL IV PUSH (20:28)
[2024-01-22 23:29] LABS: Glucose Point of Care 131 mg/dl (65-105)
[2024-01-23] VITALS (36 sets, daily range): BP systolic 109–130; BP diastolic 48–71; PULSE 78–142; RESP 10–20; TEMP 36.2–37.6; O2SAT 95–100
[2024-01-23] MEDS: dilTIAZem 100 MG/100 ML 100 MG/100 ML BAG 10 MG IV CONT (00:58)
[2024-01-23] MEDS: SODIUM CHLORIDE 0.9% IV 1,000 ML 75 ML IV CONT (00:59)
--- NOTE | 2024-01-23 04:50 | ECG_ITS ---
Measurements Intervals [place] Rate: 86 P: 51 CO: 144 QRS: 0 QRSD: 104 T: 92 QT: 381 QTc: 457 Interpretive Statements SINUS RHYTHM POSSIBLE LEFT ATRIAL ENLARGEMENT CANNOT RULE OUT SEPTAL INFARCT, AGE INDETERMINATE BORDERLINE ST-T WAVE ABNORMALITY- LAT/HIGH LAT LEADS BASELINE ARTIFACT- I, II, III, AVR, AVL, AVF, V1-V6 ABNORMAL ECG COMPARED TO ECG 01/21/2024 18:02:07 SINUS RHYTHM NOW PRESENT Electronically Signed On 01-23-2024 6:30:37 CDT by David Coronel D.O.
[2024-01-23 05:10] LABS: Basophils Absolute Auto 0.1 K/mm3 (0.0-0.1); Eosinophils Absolute Auto 0.2 K/mm3 (0-0.3); Eosinophils Percent Auto 3.3 % (0-4.4); Hematocrit 42.4 % (42.0-52.0); Hemoglobin 12.8 g/dL (14.0-18.0); Lymphocytes Absolute Auto 0.86 K/mm3 (0.9-3.2); Lymphocytes Percent Auto 17.6 % (18.3-44.2); Mean Corpuscular HGB Conc 30.2 g/dl (32-36); Mean Corpuscular Hemoglobin 27.4 pg (26-34); Mean Corpuscular Volume 90.8 fl (80-100); Mean Platelet Volume 10.7 fl (7.4-10.4); Monocytes Percent Auto 19.6 % (2.6-8.5); Neutrophils Absolute Auto 2.9 K/mm3 (1.3-6.7); Neutrophils Percent Auto 58.5 % (45.5-73.1); Platelet Count Result 187 k/mm3 (150-375); Red Blood Count 4.67 M/mm3 (4.6-6.20); Red Cell Distribution Width 14.3 % (11.5-14.5); White Blood Count 4.9 K/mm3 (4.5-10.0)
[2024-01-23 05:20] LABS: Alanine Aminotransferase 13 U/L (6-50); Albumin Level 3.3 g/dL (3.5-5.1); Alkaline Phosphatase 55 U/L (38-126); Anion Gap 8 mmol/L (8-16); Aspartate Amino Transferase 15 U/L (17-59); Bilirubin,Total 0.8 mg/dL (0.2-1.3); Blood Urea Nitrogen 27 mg/dL (9-20); Calcium 8.2 mg/dL (8.4-10.2); Carbon Dioxide 22 mmol/L (22-30); Chloride 108 mmol/L (98-107); Estimated CRCL calculation 55 ml/min; Estimated Glomerular Filt Rate > 60; Glucose 128 mg/dL (65-110); Magnesium 2.9 mg/dL (1.6-2.3); Potassium 3.7 mmol/L (3.4-5.0); Sodium 138 mmol/L (137-145)
[2024-01-23] MEDS: dilTIAZem 100 MG/100 ML 100 MG/100 ML BAG 15 MG IV CONT ×3 (07:30→20:20)
--- NOTE | 2024-01-23 08:02 | PM.IMPN ---
Progress Note: A&P Assessment and Plan (1) Small bowel obstruction: Code(s): K56.609 - Unspecified intestinal obstruction, unspecified as to partial versus complete obstruction Status: Acute Assessment and Plan: NPO except ice chips, NG tube to suction, surgery has evaluated patient uncertain if he will dose to the operating room or not at this time. Surgery started patient on ertapenem once daily IV. 01/22: Patient to go to OR today (2) Atrial fibrillation with rapid ventricular response: Code(s): I48.91 - Unspecified atrial fibrillation Status: Acute Assessment and Plan: Generally rate controlled with occasional paroxysms that increase heart rate. Continue telemetry monitoring. P.r.n. IV metoprolol. Oral medications held at this time due to bowel obstruction. No anticoagulation due to possible need for operative intervention. Rhythm is switching frequently from sinus to atrial fibrillation per review of telemetry. 01/22: OR postponed due to RVR last night. Patient moved to IMU and on diltiazem drip at 15 mg/hr converted to normal sinus at 0430 this morning. Cardiology assisted with care and saw patient today clearing him for OR. (3) Type 2 diabetes mellitus: Code(s): E11.9 - Type 2 diabetes mellitus without complications Status: Acute Assessment and Plan: Fingerstick glucose every 6 hours while NPO with sliding scale insulin. 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 01/22: Going to OR today (5) Gastroesophageal reflux disease: Code(s): K21.9 - Gastro-esophageal reflux disease without esophagitis Status: Acute Assessment and Plan: IV pantoprazole while NPO Plan Surgery taking patient to OR for SBO Cardiology assisted with RVR rate control not responsive to diltiazem boluses on the floor. 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 The patient provides the following history. He reports a gradual onset progressive, diffuse sharp abdominal pain with bloating, distention, and nausea with 1 episode of nonbilious and nonbloody emesis. His symptoms seem to be worse with each day and are not getting better. His last bowel movement about 2 days ago and reports that it was small but otherwise unremarkable. He has not had exact symptoms like this before but reports that 18 years ago he had abdominal pain leading to an exploratory laparotomy at which time he was found to have appendicitis. He had a postoperative ileus at that time which improved with conservative therapy. He has not had any other abdominal surgeries. He denies fever, chills, sweats, chest pain, pleuritic pain, shortness of breath, hematemesis, melena, and hematochezia. No known history of peptic ulcers, gallbladder disease, or pancreatitis. In the ED: He was afebrile on arrival with stable blood pressures. Heart rate was initially in the 130s to 140s and he was found to be in atrial fibrillation with rapid ventricular response. He was given 10 mg IV diltiazem with some improvement in his heart rate. CT of the abdomen and pelvis showed small-bowel obstruction with a transition point in the mid lower anterior abdomen. An NG tube has been placed for decompression and he is being admitted in this setting for further treatment and moreno
--- NOTE | 2024-01-23 08:55 | PM.CNCAR ---
Assessment and Plan Assessment and plan (1) Paroxysmal atrial flutter: Code(s): I48.92 - Unspecified atrial flutter Status: Acute Assessment and Plan: History of paroxysmal atrial flutter, having problems with atrial flutter RVR off and on since admission. Converted to sinus rhythm on diltiazem. Off anticoagulation as the patient may need surgery. Continue IV diltiazem 15 milligrams/hour for now pending decision regarding surgery If the patient has surgery and develops recurrent a flutter RVR, can given additional bolus of Cardizem 5-10 mg, or IV metoprolol, or can add amiodarone. Resume anticoagulation when acute situation has resolved; consider heparin if we cont conservative management Counseled patient and regarding my recommendations. (2) Small bowel obstruction: Code(s): K56.609 - Unspecified intestinal obstruction, unspecified as to partial versus complete obstruction Status: Acute Assessment and Plan: Admitted on the with small-bowel obstruction, may need operative management. Followed by Dr. Reed. Does not seem to have improved with conservative management. (3) Hypertension: Code(s): I10 - Essential (primary) hypertension Status: Acute Assessment and Plan: Blood pressure controlled with IV diltiazem (4) Diabetes: Code(s): E11.9 - Type 2 diabetes mellitus without complications Status: Chronic Assessment and Plan: Treatment per hospitalist History of Present Illness History of Present Illness Consult date/time: 01/23/24 08:55 Reason For Visit: SBO Narrative: Gene Yen is an88 y.o. male whom we were asked to see at the request of Duncan Robert APRN for our advice and opinion regarding his atrial fib with RVR, in consultation. He was diagnosed with paroxysmal atrial flutter in September [address] Jaeger at [facility]. He is treated with diltiazem and Xarelto at home, but with his illness he has not taken any since Sunday. He had a remote catheterization which he states showed no disease and an echo recently that also was unremarkable, per the patient. He denies any problems with shortness of breath or chest pain, and does not feel any palpitations when he goes and atrial flutter. On admission he states he was a little diaphoretic. Mr. Yen was admitted on 01/21/2024 with a small-bowel obstruction. He may need operative management. On admission he was found to be in Atrial flutter RVR but returned to sinus rhythm after a dose of IV diltiazem. He then went back and atrial flutter which was persistent and was started on a diltiazem drip yesterday, now 15 milligrams/hour. He converted to sinus rhythm this morning 4:00 a.m. he is feeling the same, not much abdominal pain but bloated. Both he and his were concerned that he has not had any nutrition for the 4 days. Past medical history of GERD, hyperlipidemia, diabetes. Review of Systems Constitutional: Constitutional: Denies fever(s) Eyes: Eyes: Reports as per HPI ENT: Denies epistaxis Cardiovascular: Cardiovascular: Denies chest pain, Denies pedal edema, Denies leg edema, Denies lightheadedness, Denies palpitations and Denies dyspnea Respiratory: Respiratory: Denies chest congestion and Denies dyspnea Gastrointestinal: Gastrointestinal: Reports abdominal pain (Improved), Reports bloating and Denies hematochezia Genitourinary: Genitourinary: Denies hematuria Musculoskeletal: Musculoskeletal: Reports arthralgias Comments: Has a bone spur in his right hip, getting physical therapy. Integumentary/Breasts: Skin/Breast: Reports system reviewed and no additional complaints, except as docu Neurologic: Reports system reviewed and no additional complaints, except as documented and Denies behavioral changes Psychiatric: Psychiatric: Denies behavioral changes [facility] Past Medical History Medical History (Updated
[2024-01-23] MEDS: KCL 20 MEQ/SW 100 ML 100 ML 50 MEQ IVPB (09:31)
[2024-01-23] MEDS: PANTOPRAZOLE SODIUM IV 40 MG VIAL IV PUSH (09:36)
[2024-01-23 11:59] LABS: Glucose Point of Care 116 mg/dl (65-105)
--- NOTE | 2024-01-23 12:20 | PM.PNGS ---
Progress Note: A&P Assessment and Plan (1) Small bowel obstruction: Code(s): K56.609 - Unspecified intestinal obstruction, unspecified as to partial versus complete obstruction Status: Acute Assessment and Plan: Still no improvement in bowel function. HR better controlled today. I have recommended proceeding with exploratory laparotomy, possible bowel resection. I discussed procedure, risks, benefits, and alternatives. Questions answered. (2) Atrial fibrillation with rapid ventricular response: Code(s): I48.91 - Unspecified atrial fibrillation Status: Acute (3) Type 2 diabetes mellitus: Code(s): E11.9 - Type 2 diabetes mellitus without complications Status: Acute Subjective Subjective Date/Time Seen: 01/23/24 12:20 Interval history: Still no BM or flatus. No abdominal pain. HR better controlled. No chest pain or flutter. Exam GI: Inspection: distended and scar (lower midline) GI Palp: Yes Soft to palpation, No Tenderness to palpation present (GI) and No Guarding due to palpation present (GI) Auscultation: absent bowel sounds Objective Data Vital Signs Vital Signs: Vital Signs - 24 hr 01/22/24 12:46 01/22/24 12:47 01/22/24 14:00 Temperature 37.1 C Pulse Rate 142 H 142 H 139 H Respiratory Rate 16 Blood Pressure 137/80 107/75 Pulse Oximetry 97 Oxygen Delivery 01/22/24 15:02 01/22/24 18:08 01/22/24 18:13 Temperature 36.7 C Pulse Rate 142 H 150 H 143 H Respiratory Rate 16 Blood Pressure 104/70 96/70 L Pulse Oximetry 95 Oxygen Delivery 01/22/24 19:06 01/22/24 16:00 01/22/24 20:28 Temperature 36.7 C 36.6 C Pulse Rate 120 H 143 H 120 H Respiratory Rate 20 20 Blood Pressure 104/70 120/62 Pulse Oximetry 96 96 Oxygen Delivery 01/22/24 20:00 01/22/24 22:23 01/23/24 00:03 Temperature 36.6 C Pulse Rate 138 H 144 H 118 H Respiratory Rate 18 Blood Pressure 115/71 Pulse Oximetry 96 Oxygen Delivery 01/22/24 20:00 01/22/24 22:00 01/23/24 00:00 Temperature Pulse Rate 135 H 144 H 122 H Respiratory Rate 18 Blood Pressure Pulse Oximetry 96 Oxygen Delivery Room Air 01/23/24 00:00 01/23/24 00:46 01/23/24 00:58 Temperature Pulse Rate 122 H 122 H 124 H Respiratory Rate 18 Blood Pressure Pulse Oximetry 96 Oxygen Delivery Room Air 01/23/24 00:59 01/23/24 02:00 01/23/24 02:08 Temperature Pulse Rate 124 H 115 H 112 H Respiratory Rate Blood Pressure Pulse Oximetry Oxygen Delivery 01/23/24 04:28 01/23/24 04:00 01/23/24 04:00 Temperature 36.6 C Pulse Rate 86 117 H 117 H Respiratory Rate 18 18 Blood Pressure 120/64 Pulse Oximetry 95 95 Oxygen Delivery Room Air 01/23/24 04:00 01/23/24 05:32 01/23/24 07:30 Temperature Pulse Rate 117 H 82 88 Respiratory Rate Blood Pressure Pulse Oximetry Oxygen Delivery 01/23/24 07:30 01/23/24 07:59 01/23/24 09:07 Temperature 36.4 C Pulse Rate 88 78 Respiratory Rate 20 Blood Pressure 109/52 L Pulse Oximetry 96 96 Oxygen Delivery Room Air 01/23/24 08:00 01/23/24 10:00 01/23/24 11:48 Temperature 36.2 C L Pulse Rate 82 87 84 Respiratory Rate 20 Blood Pressure 113/50 L Pulse Oximetry 98 Oxygen Delivery Intake/Output Intake/Output: Intake & Output 01/20/24 01/21/24 01/22/24 01/23/24 23:59 23:59 23:59 23:59 Intake Total 1050 1048.0 1387.5 Output Total 200 800 300 Balance 850 248.0 1087.5 Meds/Results Medications: Active Medications Generic Name Dose Route Start Last Admin Trade Name Freq PRN Reason Stop Dose Admin Dextrose 12.5 gm 01/21/24 17:24 Dextrose 50% 25 Gm/50 Ml Syringe IV PUSH PRN PRN Hypoglycemia Protocol Glucagon 1 mg 01/21/24 17:24 Glucagon For Inj 1 Mg Vial IM PRN PRN Hypoglycemia Protocol Glucose 15 gm 01/21/24 17:24 Glucose Oral Gel 15 Gm Of Glucse In 37.5 Gm Tube PO PRN
--- NOTE | 2024-01-23 12:23 | WPDHPUPDATE1 ---
History and Physical Update Update Date/Time: 01/23/24 12:23 History and Physical has been reviewed, including an updated exam of the patient. There are NO changes in the patient's condition. Risks, benefits, and alternatives have been discussed and questions answered. Patient agrees to proceed with procedure.
[2024-01-23] MEDS: LACTATED RINGERS 1,000 ML 30 ML IV CONT ×2 (14:00→18:37)
--- NOTE | 2024-01-23 14:01 | PC.NURSE ---
1345- to OR via bed accompanied by RN's and - a/o x4- IV Cardizem at 15cc/hr infusing - pt SR 80's
[2024-01-23] MEDS: metroNIDAZOLE 500 MG/ISO 100ML 500 MG/100 ML BAG 100 MG IVPB ×2 (14:05→22:15)
[2024-01-23] MEDS: cefTRIAXone 2 GM/NS 100 ML 2 GM/100 ML BAG IVPB (16:49)
--- NOTE | 2024-01-23 16:53 | WPDANESEPPF ---
Anes - Initial Pre Proc Eval Procedure: Operation Date: 01/23/24 15:30 Proposed Procedures p Exploratory Laparotomy, Possible Bowel Resection - Hugh Juares DO Date/Time: 01/23/24 16:53 Surgeon: Jose Alfredo Brown MD Pre Op Diagnosis: SBO Patient Data Age: 88 Gender: M Height: 1.83 m Weight: 75.2 kg Last Vital Signs Temp 37.6 C H 01/23/24 13:56 Pulse 87 01/23/24 14:19 Resp 18 01/23/24 13:56 BP 117/51 L 01/23/24 13:56 Pulse Ox 96 01/23/24 13:56 O2 Del Method Room Air 01/23/24 13:56 Allergies Allergy/AdvReac Type Severity Reaction Status Date / Time lisinopril AdvReac Swelling Verified 01/21/24 16:05 Home Medications Medication Instructions Recorded Confirmed Type allopurinol 300 mg tablet 300 mg PO DAILY 11/24/19 01/21/24 History metformin 500 mg tablet,extended 1,000 mg PO BID 11/24/19 01/21/24 History release 24 hr omeprazole 20 mg capsule,delayed 20 mg PO DAILY 11/24/19 01/21/24 History release simvastatin 40 mg tablet 40 mg PO HS 11/24/19 01/21/24 History apixaban 5 mg tablet (Eliquis) 5 mg PO BID #14 tabs 09/16/23 01/21/24 Rx diltiazem HCl 120 mg 120 mg PO DAILY 10/02/23 01/21/24 History capsule,extended release 12 hr dapagliflozin propanediol 10 mg 10 mg PO DAILY 01/21/24 01/21/24 History tablet (Farxiga) ferrous sulfate 325 mg (65 mg 325 mg PO DAILY 01/21/24 01/21/24 History iron) tablet,delayed release meloxicam 15 mg tablet 15 mg PO DAILY 01/21/24 01/21/24 History ranolazine 500 mg tablet,extended 500 mg PO BID 01/21/24 01/21/24 History release,12 hr Laboratory Tests 01/22/24 01/22/24 01/23/24 18:13 23:22 04:47 WBC 4.9 K/mm3 (4.5-10.0) RBC 4.67 M/mm3 (4.6-6.20) Hgb 12.8 L g/dL (14.0-18.0) Hct 42.4 % (42.0-52.0) MCV 90.8 fl (80-100) MCH 27.4 pg (26-34) MCHC 30.2 L g/dl (32-36) RDW 14.3 % (11.5-14.5) Plt Count 187 k/mm3 (150-375) MPV 10.7 H fl (7.4-10.4) Immature Gran % (Auto) 0.0 % (0-0.5) Neut % (Auto) 58.5 % (45.5-73.1) Lymph % (Auto) 17.6 L % (18.3-44.2) Sebastian % (Auto) 19.6 H % (2.6-8.5) Eos % (Auto) 3.3 % (0-4.4) Baso % (Auto) 1.0 % (0.2-1.2) Lymph # (Auto) 0.86 L K/mm3 (0.9-3.2) Sebastian # (Auto) 1.0 H K/mm3 (0.1-0.6) Eos # (Auto) 0.2 K/mm3 (0-0.3) Baso # (Auto) 0.1 K/mm3 (0.0-0.1) Abs Immat Gran (auto) 0.00 K/mm3 (0.00-0.031) Absolute Neuts (auto) 2.9 K/mm3 (1.3-6.7) Absolute Nucleated RBC 0.000 K/mm3 (0.0-0.012) Nucleated RBC % 0.0 % (0.0-0.2) Sodium 138 mmol/L (137-145) Potassium 3.7 mmol/L (3.4-5.0) Chloride 108 H mmol/L (98-107) Carbon Dioxide 22 mmol/L (22-30) Anion Gap 8 mmol/L (8-16) BUN 27 H mg/dL (9-20) Creatinine 0.90 mg/dL (0.7-1.3) Estim Creat Clear Calc 55 ml/min Estimated GFR > 60 (59 - ) Glucose 128 H mg/dL (65-110) POC Capillary Glucose 154 H mg/dl 131 H mg/dl (65-105) (65-105) Calcium 8.2 L mg/dL (8.4-10.2) Magnesium 2.9 H mg/dL (1.6-2.3) Total Bilirubin 0.8 mg/dL (0.2-1.3) AST 15 L U/L (17-59) ALT 13 U/L (6-50) Alkaline Phosphatase 55 U/L (38-126) Total Protein 6.0 L g/dL (6.3-8.2) Albumin 3.3 L g/dL (3.5-5.1) 01/23/24 11:46 WBC RBC Hgb Hct MCV MCH MCHC RDW Plt Count MPV Immature Gran % (Auto) Neut % (Auto) Lymph % (Auto) Sebastian % (Auto) Eos % (Auto) Baso % (Auto) Lymph # (Auto) Sebastian # (Auto) Eos # (Auto) Baso # (Auto) Abs Immat Gran (auto) Absolute Neuts (auto) Ab
--- NOTE | 2024-01-23 18:37 | W.PM.PROC2 ---
Procedure Note - Detailed Date of Procedure 01/23/24 Pre-op Diagnosis SBO Post-op Diagnosis Same Procedure Performed Exploratory laparotomy with adhesiolysis and ileal resection with [id number] ileal anastomosis Surgeon Hugh Juares, DO Anesthesia General Indications This is an 88-year-old man who presented to the emergency department on 01/21/2024 with abdominal pain with bloating and nausea and vomiting. He has a history of exploratory laparotomy and appendectomy many years ago. CT in the emergency department showed evidence of a small-bowel obstruction. NG tube was placed and he was kept NPO. He was not showing any sign of return of bowel function and appeared to be completely obstructed. Follow-up x-rays showed no improvement in the small bowel dilation. He was going to undergo exploratory laparotomy last night but was in atrial fibrillation with rapid ventricular response. Surgery was then delayed to allow for hemodynamic stability. Today his heart rate was much better controlled. Discussions were made with the patient about treatment options and decision was made to proceed with exploratory laparotomy with possible small bowel resection. Findings Exploratory laparotomy was performed. The patient did have some adhesions in the anterior midline just inferior to the umbilicus. These adhesions involved 2 loops of ileum. He then also had several other adhesions in the lower abdomen that involved sigmoid colon and some small bowel. Once the adhesions were taken down I was able to carefully inspect the entire bowel. There did appear to be a stricture at the location of the adhesion that was causing the bowel obstruction. Decision was made to resect this area to prevent any further narrowing or recurrent obstructions. About a 6 cm segment of ileum was resected and a [id number] ileal anastomosis was performed. I then ran the entire small bowel from ligament of Treitz to ileocecal valve. No other abnormalities were noted. Description of Procedure Procedure as well as risks, benefits, and alternatives were discussed with the patient. Written consent was obtained and placed chart prior to procedure. Patient was brought back to surgical suite. He was placed supine on operating table. Time-out was done to confirm patient and procedure. He was then intubated by the anesthesia department. His abdomen was prepped and draped in sterile fashion using chlorhexidine prep. A 15 cm vertical midline incision was made from just superior to the umbilicus down to the suprapubic region using a 10 blade scalpel. Electrocautery was used for hemostasis and for dissection through Sadiq's fascia. The linea alba was then incised with electrocautery. I entered in through the peritoneum in the upper portion of the incision was able to carefully feel under the midline fascia inferior to this region and there did appear to be some small bowel adhesions up to this region. I carefully took down the small bowel adhesions using Metzenbaum scissors and then this allowed me to continue opening the fascia throughout the length of the skin incision with electrocautery. There was another area small bowel adherent to the abdominal wall and this was carefully taken down using Metzenbaum scissors as well. I then was able to inspect the entire abdominal cavity. Small bowel was very dilated proximally but beyond the point where the adhesion was to the abdominal wall, the small bowel appeared decompressed. There did appear to be an area of narrowing at the location where the adhesion was and this appeared to be causing a stricture of the ileum this location. The remainder of the small bowel appeared healthy and viable. Decision was made to resect this area due to the significant narrowing noted. A window was created in the mesentery just proximal and distal to the stricture and a EJTHRO 75 mm blue load stapler was advanced across the small bowel proximal and distal to the stricture
[2024-01-23 18:48] LABS: Glucose Point of Care 117 mg/dl (65-105)
[2024-01-23] MEDS: fentaNYL CITRATE INJ (*CRX) 100 MCG/2 ML VIAL 25 MCG IV PUSH ×3 (19:05→19:20)
[2024-01-23] MEDS: LACTATED RINGERS 1,000 ML 100 ML IV CONT (20:20)
--- NOTE | 2024-01-23 23:31 | ECG_ITS ---
Measurements Intervals [place] Rate: 141 P: 47 FL: 171 QRS: 14 QRSD: 131 T: 70 QT: 349 QTc: 535 Interpretive Statements SINUS TACHYCARDIA, POSSIBLE ATRIAL FLUTTER INTRAVENTRICULAR CONDUCTION DELAY BORDERLINE ST-T WAVE ABNORMALITY- HIGH LATERAL LEADS BASELINE ARTIFACT- I, II, AVR, AVL, AVF, V4-V6 ABNORMAL ECG COMPARED TO ECG 01/23/2024 05:07:46 SINUS TACHYCARDIA, POSSIBLE ATRIAL FLUTTER NOW PRESENT Electronically Signed On 01-24-2024 6:31:34 CDT by David Coronel D.O.
[2024-01-23] MEDS: HYDROmorphone HCL INJ (*CRX) 1 MG/ML SYR IV PUSH (23:48)
[2024-01-24] VITALS (36 sets, daily range): BP systolic 99–124; BP diastolic 53–69; PULSE 93–142; RESP 16–20; TEMP 36.1–37.3; O2SAT 96–100; BMI 28.5
[2024-01-24] MEDS: METOPROLOL TARTRATE INJ 5 MG/5 ML VIAL IV PUSH ×6 (00:08→23:29)
[2024-01-24 00:16] LABS: Glucose Point of Care 175 mg/dl (65-105)
[2024-01-24] MEDS: dilTIAZem 100 MG/100 ML 100 MG/100 ML BAG 15 MG IV CONT ×4 (02:47→23:29)
[2024-01-24] MEDS: metroNIDAZOLE 500 MG/ISO 100ML 500 MG/100 ML BAG 100 MG IVPB (05:06)
[2024-01-24 05:09] LABS: Basophils Percent Auto 0.7 % (0.2-1.2); Hematocrit 45.4 % (42.0-52.0); Hemoglobin 13.3 g/dL (14.0-18.0); Immature Granulocyte Absolute 0.02 K/mm3 (0.00-0.031); Immature Granulocyte Percent A 0.3 % (0-0.5); Lymphocytes Absolute Auto 0.45 K/mm3 (0.9-3.2); Lymphocytes Percent Auto 7.5 % (18.3-44.2); Mean Corpuscular HGB Conc 29.3 g/dl (32-36); Mean Corpuscular Volume 92.1 fl (80-100); Mean Platelet Volume 10.8 fl (7.4-10.4); Monocytes Absolute Auto 0.6 K/mm3 (0.1-0.6); Monocytes Percent Auto 9.5 % (2.6-8.5); Neutrophils Absolute Auto 4.9 K/mm3 (1.3-6.7); Platelet Count Result 208 k/mm3 (150-375); Red Blood Count 4.93 M/mm3 (4.6-6.20); Red Cell Distribution Width 14.3 % (11.5-14.5)
[2024-01-24 05:20] LABS: Alanine Aminotransferase 14 U/L (6-50); Albumin Level 3.3 g/dL (3.5-5.1); Alkaline Phosphatase 49 U/L (38-126); Anion Gap 15 mmol/L (8-16); Aspartate Amino Transferase 17 U/L (17-59); Bilirubin,Total 0.5 mg/dL (0.2-1.3); Blood Urea Nitrogen 22 mg/dL (9-20); Carbon Dioxide 14 mmol/L (22-30); Chloride 107 mmol/L (98-107); Estimated CRCL calculation 55 ml/min; Estimated Glomerular Filt Rate > 60; Glucose 182 mg/dL (65-110); Magnesium 2.7 mg/dL (1.6-2.3); Potassium 4.6 mmol/L (3.4-5.0); Sodium 136 mmol/L (137-145)
[2024-01-24] MEDS: ENOXAPARIN 40 MG/0.4 ML SYRINGE SUB-Q (09:36)
[2024-01-24] MEDS: PANTOPRAZOLE SODIUM IV 40 MG VIAL IV PUSH (09:36)
--- NOTE | 2024-01-24 09:49 | PM.PNCARD ---
Progress Note: A&P Assessment and Plan (1) Paroxysmal atrial flutter: Code(s): I48.92 - Unspecified atrial flutter Status: Acute Assessment and Plan: History of paroxysmal atrial flutter, having problems with atrial flutter RVR off and on since admission. Converted to sinus rhythm on diltiazem. Off anticoagulation as the patient may need surgery. Continue IV diltiazem 15 milligrams/hour for now pending decision regarding surgery Will add scheduled IV metoprolol as he remains tachycardic and is still NPO. May need to consider amiodarone if persistently tachycardic or BP unable to tolerate the addition of metoprolol. Resume anticoagulation when acute situation has resolved and ok per surgery (2) Small bowel obstruction: Code(s): K56.609 - Unspecified intestinal obstruction, unspecified as to partial versus complete obstruction Status: Acute Assessment and Plan: Admitted on the with small-bowel obstruction, may need operative management. Followed by Dr. Reed. POD 1 small bowel resection (3) Hypertension: Code(s): I10 - Essential (primary) hypertension Status: Acute Assessment and Plan: Blood pressure controlled with IV diltiazem (4) Diabetes: Code(s): E11.9 - Type 2 diabetes mellitus without complications Status: Chronic Assessment and Plan: Treatment per hospitalist Subjective Date/time seen: 01/24/24 09:49 Interval history: Cardiology follow up for atrial flutter Date of service 01/24/2024: Feeling well s/p ileal resection yesterday. No abdominal pain. He remains tachycardic on telemetry, current in the 120's - 130's. Denies any palpitations, chest pain, or shortness of breath. Review of Systems Constitutional: Constitutional: Denies fever(s) Eyes: Eyes: Reports as per HPI ENT: Denies epistaxis Cardiovascular: Cardiovascular: Denies chest pain, Denies pedal edema, Denies leg edema, Denies lightheadedness, Denies palpitations and Denies dyspnea Respiratory: Respiratory: Denies chest congestion and Denies dyspnea Gastrointestinal: Gastrointestinal: Reports abdominal pain (Improved), Reports bloating and Denies hematochezia Genitourinary: Genitourinary: Denies hematuria Musculoskeletal: Musculoskeletal: Reports arthralgias Integumentary/Breasts: Skin/Breast: Reports system reviewed and no additional complaints, except as docu Neurologic: Reports system reviewed and no additional complaints, except as documented and Denies behavioral changes Psychiatric: Psychiatric: Denies behavioral changes Endocrine: Endocrine: Denies palpitations Exam Const: General: cooperative, healthy appearing, comfortable and no acute distress Orientation/consciousness: patient oriented x3 HENMT: Head: normal to inspection and no cranial bruits Ears: external ears normal Face/Nose/Sinus: Normal external nose present and normal facial exam Face and sinus: normal facial exam Mouth: Yes Normal oral and palatal mucosa present Eyes: General: appearance normal, both eyes and all related structures EOM: EOMs intact bilaterally Neck: Neck: normal visual inspection, supple and No JVD Thyroid: thyroid normal Carotids: no bruits Resp: Effort & Inspection: normal respiratory effort, able to speak in complete sentences and no audible wheezes Auscultation: clear to auscultation bilaterally Cardio: Jugular venous distension: no JVD Rate: tachycardic Rhythm: regular rhythm Heart sounds: no murmurs GI: Inspection: distended Auscultation: abnormal bowel sounds (Absent bowel sounds) Other: NG tube present Skin: General skin exam: normal color Lesions: no lesions Neuro: General: patient oriented x3 Speech: normal speech Extrem: General: normal to inspection and no pedal edema Psych: Appearance: grossly normal and well kempt Mental Status: mental status grossly normal Objective Data Vital Signs Vital Signs: Vital Signs - 24 hr
[2024-01-24 12:01] LABS: Glucose Point of Care 167 mg/dl (65-105)
--- NOTE | 2024-01-24 12:23 | PM.PNGS ---
Progress Note: A&P Assessment and Plan (1) Small bowel obstruction: Code(s): K56.609 - Unspecified intestinal obstruction, unspecified as to partial versus complete obstruction Status: Acute Assessment and Plan: Await return of bowel function Ambulate with assistance Will start PPN today since patient has already been NPO for several days (2) Atrial fibrillation with rapid ventricular response: Code(s): I48.91 - Unspecified atrial fibrillation Status: Acute Assessment and Plan: Cardizem drip until tolerating PO. Continue per Cardiology. (3) Type 2 diabetes mellitus: Code(s): E11.9 - Type 2 diabetes mellitus without complications Status: Acute Subjective Subjective Date/Time Seen: 01/24/24 12:23 Interval history: No flatus or BM yet. Pain controlled. Not ambulating much yet. Still on Cardizem drip and on telemetry. Exam GI: Inspection: distended and incision (dressing dry) GI Palp: Yes Soft to palpation and Yes Tenderness to palpation present (GI) (incisional) Auscultation: Hypoactive bowel sounds present Objective Data Vital Signs Vital Signs: Vital Signs - 24 hr 01/23/24 13:45 01/23/24 14:19 01/23/24 14:19 Temperature Pulse Rate 87 87 87 Respiratory Rate Blood Pressure Pulse Oximetry Oxygen Delivery Oxygen Flow Rate Fraction of Inspired Oxygen 01/23/24 13:56 01/23/24 18:37 01/23/24 18:50 Temperature 37.6 C H 36.3 C L Pulse Rate 87 93 91 Respiratory Rate 18 10 L 19 Blood Pressure 117/51 L 122/63 127/64 Pulse Oximetry 96 100 100 Oxygen Delivery Room Air Simple Face Mask Simple Face Mask Oxygen Flow Rate 8 8 Fraction of Inspired Oxygen 01/23/24 19:05 01/23/24 19:15 01/23/24 19:20 Temperature 36.4 C Pulse Rate 86 86 90 Respiratory Rate 16 17 17 Blood Pressure 130/60 125/59 L 126/58 L Pulse Oximetry 100 100 100 Oxygen Delivery Simple Face Mask Simple Face Mask Room Air Oxygen Flow Rate 8 8 Fraction of Inspired Oxygen 01/23/24 19:35 01/23/24 19:57 01/23/24 20:20 Temperature 36.6 C Pulse Rate 90 88 88 Respiratory Rate 14 18 Blood Pressure 124/58 L 122/52 L Pulse Oximetry 97 95 Oxygen Delivery Room Air Oxygen Flow Rate Fraction of Inspired Oxygen 01/23/24 20:20 01/23/24 20:27 01/23/24 21:27 Temperature 36.4 C 36.6 C Pulse Rate 88 82 88 Respiratory Rate 16 20 Blood Pressure 113/51 L 113/48 L Pulse Oximetry 97 97 Oxygen Delivery Oxygen Flow Rate Fraction of Inspired Oxygen 01/23/24 22:27 01/23/24 20:00 01/23/24 20:00 Temperature 36.4 C L Pulse Rate 88 90 90 Respiratory Rate 20 20 Blood Pressure 116/50 L Pulse Oximetry 98 98 Oxygen Delivery Room Air Oxygen Flow Rate Fraction of Inspired Oxygen 01/23/24 22:00 01/23/24 22:00 01/23/24 23:33 Temperature 36.2 C L Pulse Rate 92 92 142 H Respiratory Rate 20 Blood Pressure 115/60 Pulse Oximetry 98 Oxygen Delivery Oxygen Flow Rate Fraction of Inspired Oxygen 01/23/24 23:37 01/23/24 23:38 01/24/24 00:08 Temperature Pulse Rate 142 H 142 H 142 H Respiratory Rate Blood Pressure Pulse Oximetry Oxygen Delivery Oxygen Flow Rate Fraction of Inspired Oxygen 01/24/24 00:10 01/24/24 00:10 01/24/24 00:30 Temperature Pulse Rate 94 97 93 Respiratory Rate 20 Blood Pressure Pulse Oximetry 98 Oxygen Delivery Room Air Oxygen Flow Rate Fraction of Inspired Oxygen 01/24/24 02:00 01/24/24 02:00 01/24/24 02:47 Temperature Pulse Rate 112 H 112 H 114 H Respiratory Rate Blood Pressure Pulse Oximetry Oxygen Delivery Oxygen Flow Rate Fraction of Inspired Oxygen 01/24/24 02:47 01/24/24 03:16 01/24/24 03:16 Temperature Pulse Rate 114 H 122 H 122 H Respiratory Rate 20 Blood Pressure Pulse Oximetry 98 Oxygen Delivery Room Air Oxygen Flow Rate Fraction of Inspired Oxygen 01/24/24 03:20
[2024-01-24] MEDS: FAT EMULSIONS IV 20% 250 ML 20.83 ML IVPB (12:53)
[2024-01-24] MEDS: AMINO ACIDS 4.25%/D5W/LYTES/CA 2,000 ML 100 ML IV CONT (13:28)
--- NOTE | 2024-01-24 13:51 | P.PNAN_ITS ---
Anes - Prog Note Post-Op Date/Time: 01/24/24 13:51 Cardiovascular status: normal Respiratory status: normal Airway patency: baseline Mental status: baseline Post-Op hydration status: normal Vital Signs: Last Vital Signs Temp 36.4 C L 01/24/24 11:18 Pulse 118 H 01/24/24 12:00 Resp 18 01/24/24 11:18 BP 120/69 01/24/24 12:00 Pulse Ox 100 01/24/24 11:18 O2 Del Method Room Air 01/24/24 09:42 O2 Flow Rate 8 01/23/24 19:15 FiO2 21 01/24/24 09:42 Pain Score (VAS): 0/10 I/O: Intake & Output 01/23/24 01/24/24 01/24/24 23:59 07:59 15:59 Intake Total 489.8 1303.6 81.5 Output Total 460 200 550 Balance 29.8 1103.6 -468.5 Laboratory Tests 01/24/24 04:50 01/24/24 04:50 01/23/24 01/23/24 01/24/24 18:45 23:39 04:50 WBC 6.0 RBC 4.93 Hgb 13.3 L Hct 45.4 MCV 92.1 MCH 27.0 MCHC 29.3 L RDW 14.3 Plt Count 208 MPV 10.8 H Immature Gran % (Auto) 0.3 Neut % (Auto) 82.0 H Lymph % (Auto) 7.5 L [place] % (Auto) 9.5 H Eos % (Auto) 0.0 Baso % (Auto) 0.7 Lymph # (Auto) 0.45 L [place] # (Auto) 0.6 Eos # (Auto) 0.0 Baso # (Auto) 0.0 Abs Immat Gran (auto) 0.02 Absolute Neuts (auto) 4.9 Absolute Nucleated RBC 0.000 Nucleated RBC % 0.0 Sodium 136 L Potassium 4.6 Chloride 107 Carbon Dioxide 14 L Anion Gap 15 BUN 22 H Creatinine 0.90 Estim Creat Clear Calc 55 Estimated GFR > 60 Glucose 182 H POC Capillary Glucose 117 H 175 H Calcium 8.0 L Magnesium 2.7 H Total Bilirubin 0.5 AST 17 ALT 14 Alkaline Phosphatase 49 Total Protein 6.0 L Albumin 3.3 L 03/21/24 11:20 WBC RBC Hgb Hct MCV MCH MCHC RDW Plt Count MPV Immature Gran % (Auto) Neut % (Auto) Lymph % (Auto) [place] % (Auto) Eos % (Auto) Baso % (Auto) Lymph # (Auto) [place] # (Auto) Eos # (Auto) Baso # (Auto) Abs Immat Gran (auto) Absolute Neuts (auto) Absolute Nucleated RBC Nucleated RBC % Sodium Potassium Chloride Carbon Dioxide Anion Gap BUN Creatinine Estim Creat Clear Calc Estimated GFR Glucose POC Capillary Glucose 167 H Calcium Magnesium Total Bilirubin AST ALT Alkaline Phosphatase Total Protein Albumin Post-procedural complaints: none Patient Feedback: Patient satisfied with anesthetic care.
--- NOTE | 2024-01-24 14:39 | P.PNIM_ITS ---
Progress Note: A&P Assessment and Plan (1) Small bowel obstruction: Code(s): K56.609 - Unspecified intestinal obstruction, unspecified as to partial versus complete obstruction Status: Acute Assessment and Plan: NPO except ice chips, NG tube to suction, surgery has evaluated patient uncertain if he will dose to the operating room or not at this time. Surgery started patient on ertapenem once daily IV. 01/22: Patient to go to OR today 01/24/24: * Patient is postop day 1 from an ex lap with LOC and bowel resection * Continue NPO status * start PPN and lipids today * Ordered ambulate with assistance * Continue incentive spirometer q.2 hours * Rocephin discontinued per surgical team * IV fluids discontinued per surgical team * Denies passing any gas, no bowel sounds on assessment today (2) Atrial fibrillation with rapid ventricular response: Code(s): I48.91 - Unspecified atrial fibrillation Status: Acute Assessment and Plan: Generally rate controlled with occasional paroxysms that increase heart rate. Continue telemetry monitoring. P.r.n. IV metoprolol. Oral medications held at this time due to bowel obstruction. No anticoagulation due to possible need for operative intervention. Rhythm is switching frequently from sinus to atrial fibrillation per review of telemetry. 01/22: OR postponed due to RVR last night. Patient moved to IMU and on diltiazem drip at 15 mg/hr converted to normal sinus at 0430 this morning. Cardiology assisted with care and saw patient today clearing him for OR. 01/24/24: * Continue to hold Eliquis * Continue with diltiazem drip at 15 milligrams/hour while NPO per Cardiology (3) Type 2 diabetes mellitus: Code(s): E11.9 - Type 2 diabetes mellitus without complications Status: Acute Assessment and Plan: Fingerstick glucose every 6 hours while NPO with sliding scale insulin. 01/24/24: * Blood sugar ranging 167-182 * Accu-Cheks change to Q 6 hour * Low-dose sliding scale insulin ordered * Patient being started on PPN and lipids * Continue to hold Farxiga and metformin (4) Chronic anticoagulation: Code(s): Z79.01 - long term care phlebotomist (current) use of anticoagulants Status: Acute Assessment and Plan: On hold at this time due to bowel obstruction and possible need to proceed to the OR. 01/22: Going to OR today 01/24/24: * Currently Eliquis on hold * Surgical team started Lovenox 40 mg daily (5) Gastroesophageal reflux disease: Code(s): K21.9 - Gastro-esophageal reflux disease without esophagitis Status: Acute Assessment and Plan: IV pantoprazole while NPO 01/24/24: * Continue with Protonix (6) Paroxysmal atrial fibrillation: Code(s): I48.0 - Paroxysmal atrial fibrillation Status: Acute Assessment and Plan: 01/24/2024: * Patient currently in a flutter with a rate of 120-130 on the monitor * Cardiology following and increased metoprolol today * Continue with Cardizem drip until tolerating p.o. 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
--- NOTE | 2024-01-24 14:39 | PM.IMPN ---
Progress Note: A&P Assessment and Plan (1) Small bowel obstruction: Code(s): K56.609 - Unspecified intestinal obstruction, unspecified as to partial versus complete obstruction Status: Acute Assessment and Plan: NPO except ice chips, NG tube to suction, surgery has evaluated patient uncertain if he will dose to the operating room or not at this time. Surgery started patient on ertapenem once daily IV. 01/22: Patient to go to OR today 01/24/24: Patient is postop day 1 from an ex lap with LOC and bowel resection Continue NPO status start PPN and lipids today Ordered ambulate with assistance Continue incentive spirometer q.2 hours Rocephin discontinued per surgical team IV fluids discontinued per surgical team Denies passing any gas, no bowel sounds on assessment today (2) Atrial fibrillation with rapid ventricular response: Code(s): I48.91 - Unspecified atrial fibrillation Status: Acute Assessment and Plan: Generally rate controlled with occasional paroxysms that increase heart rate. Continue telemetry monitoring. P.r.n. IV metoprolol. Oral medications held at this time due to bowel obstruction. No anticoagulation due to possible need for operative intervention. Rhythm is switching frequently from sinus to atrial fibrillation per review of telemetry. 01/22: OR postponed due to RVR last night. Patient moved to IMU and on diltiazem drip at 15 mg/hr converted to normal sinus at 0430 this morning. Cardiology assisted with care and saw patient today clearing him for OR. 01/24/24: Continue to hold Eliquis Continue with diltiazem drip at 15 milligrams/hour while NPO per Cardiology (3) Type 2 diabetes mellitus: Code(s): E11.9 - Type 2 diabetes mellitus without complications Status: Acute Assessment and Plan: Fingerstick glucose every 6 hours while NPO with sliding scale insulin. 01/24/24: Blood sugar ranging 167-182 Accu-Cheks change to Q 6 hour Low-dose sliding scale insulin ordered Patient being started on PPN and lipids Continue to hold Farxiga and metformin (4) Chronic anticoagulation: Code(s): Z79.01 - [facility] (current) use of anticoagulants Status: Acute Assessment and Plan: On hold at this time due to bowel obstruction and possible need to proceed to the OR. 01/22: Going to OR today 01/24/24: Currently Eliquis on hold Surgical team started Lovenox 40 mg daily (5) Gastroesophageal reflux disease: Code(s): K21.9 - Gastro-esophageal reflux disease without esophagitis Status: Acute Assessment and Plan: IV pantoprazole while NPO 01/24/24: Continue with Protonix (6) Paroxysmal atrial fibrillation: Code(s): I48.0 - Paroxysmal atrial fibrillation Status: Acute Assessment and Plan: 01/24/2024: Patient currently in a flutter with a rate of 120-130 on the monitor Cardiology following and increased metoprolol today Continue with Cardizem drip until tolerating p.o. 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 The patient provides the following history. He reports a gradual onset progressive, diffuse sharp abdominal pain with bloating, distention, and nausea with 1 episode of nonbilious and nonbloody emesis. His symptoms seem to be worse with each day and are not getting better. His last bowel movement about 2 days ago and reports that it was small but otherwise unremarkable. He has not had exact sy
[2024-01-24] MEDS: INSULIN ASPART (*BKC) 100 UNITS/ML SUB-Q (18:09)
[2024-01-24 19:28] LABS: Glucose Point of Care 233 mg/dl (65-105)
--- NOTE | 2024-01-24 21:48 | PC.NURSE ---
0800- Cardizem drip infusing at 15 ml/hr equals 15mg/hr- BP 108/58 , HR 116
[2024-01-25] VITALS (32 sets, daily range): BP systolic 110–131; BP diastolic 44–72; PULSE 84–106; RESP 16–20; TEMP 36.3–37.6; O2SAT 96–98
[2024-01-25 01:01] LABS: Glucose Point of Care 216 mg/dl (65-105)
[2024-01-25] MEDS: INSULIN ASPART (*BKC) 100 UNITS/ML SUB-Q ×3 (01:18→18:43)
[2024-01-25] MEDS: METOPROLOL TARTRATE INJ 5 MG/5 ML VIAL IV PUSH ×5 (04:25→20:30)
[2024-01-25 05:07] LABS: Basophils Percent Auto 0.4 % (0.2-1.2); Eosinophils Absolute Auto 0.2 K/mm3 (0-0.3); Hematocrit 38.8 % (42.0-52.0); Hemoglobin 11.9 g/dL (14.0-18.0); Immature Granulocyte Absolute 0.03 K/mm3 (0.00-0.031); Immature Granulocyte Percent A 0.6 % (0-0.5); Lymphocytes Absolute Auto 0.86 K/mm3 (0.9-3.2); Lymphocytes Percent Auto 17.1 % (18.3-44.2); Mean Corpuscular HGB Conc 30.7 g/dl (32-36); Mean Corpuscular Hemoglobin 27.2 pg (26-34); Mean Corpuscular Volume 88.6 fl (80-100); Monocytes Absolute Auto 0.8 K/mm3 (0.1-0.6); Monocytes Percent Auto 16.5 % (2.6-8.5); Neutrophils Absolute Auto 3.1 K/mm3 (1.3-6.7); Neutrophils Percent Auto 62.4 % (45.5-73.1); Platelet Count Result 179 k/mm3 (150-375); Red Blood Count 4.38 M/mm3 (4.6-6.20); Red Cell Distribution Width 14.2 % (11.5-14.5)
[2024-01-25 05:23] LABS: Alanine Aminotransferase 12 U/L (6-50); Albumin Level 2.7 g/dL (3.5-5.1); Alkaline Phosphatase 43 U/L (38-126); Anion Gap 0 mmol/L (8-16); Aspartate Amino Transferase 14 U/L (17-59); Bilirubin,Total 0.5 mg/dL (0.2-1.3); Blood Urea Nitrogen 23 mg/dL (9-20); Calcium 8.2 mg/dL (8.4-10.2); Carbon Dioxide 26 mmol/L (22-30); Chloride 107 mmol/L (98-107); Estimated CRCL calculation 82 ml/min; Estimated Glomerular Filt Rate > 60; Glucose 199 mg/dL (65-110); Magnesium 2.5 mg/dL (1.6-2.3); Phosphorus 1.7 mg/dL (2.5-4.5); Potassium 3.7 mmol/L (3.4-5.0); Sodium 133 mmol/L (137-145)
[2024-01-25] MEDS: dilTIAZem 100 MG/100 ML 100 MG/100 ML BAG 15 MG IV CONT ×3 (06:17→20:27)
--- NOTE | 2024-01-25 08:24 | P.PNIM_ITS ---
Progress Note: A&P Assessment and Plan (1) Small bowel obstruction: Code(s): K56.609 - Unspecified intestinal obstruction, unspecified as to partial versus complete obstruction Status: Acute Assessment and Plan: NPO except ice chips, NG tube to suction, surgery has evaluated patient uncertain if he will dose to the operating room or not at this time. Surgery started patient on ertapenem once daily IV. 01/22: Patient to go to OR today 01/24/24: * Patient is postop day 1 from an ex lap with LOC and bowel resection * Continue NPO status * start PPN and lipids today * Ordered ambulate with assistance * Continue incentive spirometer q.2 hours * Rocephin discontinued per surgical team * IV fluids discontinued per surgical team * Denies passing any gas, no bowel sounds on assessment today 01/25/24: * Continue with current treatment plan * ambulate in room, get of bed to chair today (2) Atrial fibrillation with rapid ventricular response: Code(s): I48.91 - Unspecified atrial fibrillation Status: Acute Assessment and Plan: Generally rate controlled with occasional paroxysms that increase heart rate. Continue telemetry monitoring. P.r.n. IV metoprolol. Oral medications held at this time due to bowel obstruction. No anticoagulation due to possible need for operative intervention. Rhythm is switching frequently from sinus to atrial fibrillation per review of telemetry. 01/22: OR postponed due to RVR last night. Patient moved to IMU and on diltiazem drip at 15 mg/hr converted to normal sinus at 0430 this morning. Cardiology assisted with care and saw patient today clearing him for OR. 01/24/24: * Continue to hold Eliquis * Continue with diltiazem drip at 15 milligrams/hour while NPO per Cardiology 01/25/24: * No change to current treatment plan (3) Type 2 diabetes mellitus: Code(s): E11.9 - Type 2 diabetes mellitus without complications Status: Acute Assessment and Plan: Fingerstick glucose every 6 hours while NPO with sliding scale insulin. 01/24/24: * Blood sugar ranging 167-182 * Accu-Cheks change to Q 6 hour * Low-dose sliding scale insulin ordered * Patient being started on PPN and lipids * Continue to hold Farxiga and metformin 01/25/24: * BG ranging 199-216 * Will increase sliding scale insulin to medium dose sliding scale (4) Chronic anticoagulation: Code(s): Z79.01 - technician terminal and repeater (current) use of anticoagulants Status: Acute Assessment and Plan: On hold at this time due to bowel obstruction and possible need to proceed to the OR. 01/22: Going to OR today 01/24/24: * Currently Eliquis on hold * Surgical team started Lovenox 40 mg daily (5) Gastroesophageal reflux disease: Code(s): K21.9 - Gastro-esophageal reflux disease without esophagitis Status: Acute Assessment and Plan: IV pantoprazole while NPO 01/24/24: * Continue with Protonix (6) Paroxysmal atrial fibrillation: Code(s): I48.0 - Paroxysmal atrial fibrillation Status: Acute Assessment and Plan: 01/24/2024: * Patient currently in a flutter with a rate of 120-130 on the monitor * Cardiology following and increased metoprolol today * Continue with Cardizem drip until tolerating p.o. Time Spent With Patient Time with patient: 25 - 35 minutes Subjective Date/time seen: 01/25/24 08:24 Interval history: Pulled from previous chart: 01/20: This is a pleasant 88-year-old male with history of duodenal ulcers, gastroesophageal
--- NOTE | 2024-01-25 08:24 | PM.IMPN ---
Progress Note: A&P Assessment and Plan (1) Small bowel obstruction: Code(s): K56.609 - Unspecified intestinal obstruction, unspecified as to partial versus complete obstruction Status: Acute Assessment and Plan: NPO except ice chips, NG tube to suction, surgery has evaluated patient uncertain if he will dose to the operating room or not at this time. Surgery started patient on ertapenem once daily IV. 01/22: Patient to go to OR today 01/24/24: Patient is postop day 1 from an ex lap with LOC and bowel resection Continue NPO status start PPN and lipids today Ordered ambulate with assistance Continue incentive spirometer q.2 hours Rocephin discontinued per surgical team IV fluids discontinued per surgical team Denies passing any gas, no bowel sounds on assessment today 01/25/24: Continue with current treatment plan ambulate in room, get of bed to chair today (2) Atrial fibrillation with rapid ventricular response: Code(s): I48.91 - Unspecified atrial fibrillation Status: Acute Assessment and Plan: Generally rate controlled with occasional paroxysms that increase heart rate. Continue telemetry monitoring. P.r.n. IV metoprolol. Oral medications held at this time due to bowel obstruction. No anticoagulation due to possible need for operative intervention. Rhythm is switching frequently from sinus to atrial fibrillation per review of telemetry. 01/22: OR postponed due to RVR last night. Patient moved to IMU and on diltiazem drip at 15 mg/hr converted to normal sinus at 0430 this morning. Cardiology assisted with care and saw patient today clearing him for OR. 01/24/24: Continue to hold Eliquis Continue with diltiazem drip at 15 milligrams/hour while NPO per Cardiology 01/25/24: No change to current treatment plan (3) Type 2 diabetes mellitus: Code(s): E11.9 - Type 2 diabetes mellitus without complications Status: Acute Assessment and Plan: Fingerstick glucose every 6 hours while NPO with sliding scale insulin. 01/24/24: Blood sugar ranging 167-182 Accu-Cheks change to Q 6 hour Low-dose sliding scale insulin ordered Patient being started on PPN and lipids Continue to hold Farxiga and metformin 01/25/24: BG ranging 199-216 Will increase sliding scale insulin to medium dose sliding scale (4) Chronic anticoagulation: Code(s): Z79.01 - senior living (current) use of anticoagulants Status: Acute Assessment and Plan: On hold at this time due to bowel obstruction and possible need to proceed to the OR. 01/22: Going to OR today 01/24/24: Currently Eliquis on hold Surgical team started Lovenox 40 mg daily (5) Gastroesophageal reflux disease: Code(s): K21.9 - Gastro-esophageal reflux disease without esophagitis Status: Acute Assessment and Plan: IV pantoprazole while NPO 01/24/24: Continue with Protonix (6) Paroxysmal atrial fibrillation: Code(s): I48.0 - Paroxysmal atrial fibrillation Status: Acute Assessment and Plan: 01/24/2024: Patient currently in a flutter with a rate of 120-130 on the monitor Cardiology following and increased metoprolol today Continue with Cardizem drip until tolerating p.o. 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 The patient provides the following history. He reports a gradual onset progressive, diffuse sharp abdominal pain with bloating, distention, and nausea with
--- NOTE | 2024-01-25 08:54 | PCNFU ---
Nutrition Follow-Up Complete: Altered GI function related to obstruction as evidenced by diagnosis of small bowel obstruction with need for PPN for alternative nutrition support. Goal: Meet estimated needs - at least 60% energy needs. Goal is being met with PPN. Continue current goals Pt current nutrition is PPN Clinmix E 4/25 with lipids @ 100 ml/h. Nutrition recommendation: Continue with PPN @ 100 ml/h and advance diet as tolerated, per MD. Last recorded weight is 80 kg. Bowel Motility: Last BM 01/19/24 Labs Reviewed: Hgb 11/9, Hct 38.8, Alb 2.7, Na 133, BUN 23, Cr 0.6, Glu 216, Mag 2.5 Meds Noted: Lovenox, Novolog, Zofran, Protonix Skin: Abdominal incision Additional Notes: ClinmixE @ 4.25/5 @ 100 ml/h, 1316 kcal (65% EER), 102 g protein, 2650 ml total volume. Continue until diet is advanced per MD. Monitor PPN rate, labs, wt. Follow up every Sunday and Sunday per protocol
[2024-01-25] MEDS: AMINO ACIDS 4.25%/D5W/LYTES/CA 2,000 ML 100 ML IV CONT (09:29)
[2024-01-25] MEDS: ENOXAPARIN 40 MG/0.4 ML SYRINGE SUB-Q (09:32)
[2024-01-25] MEDS: PANTOPRAZOLE SODIUM IV 40 MG VIAL IV PUSH (09:32)
[2024-01-25] MEDS: BISACODYL 10 MG SUPPOSITORY RECTAL (09:32)
--- NOTE | 2024-01-25 09:56 | PM.PNCARD ---
Progress Note: A&P Assessment and Plan (1) Paroxysmal atrial flutter: Code(s): I48.92 - Unspecified atrial flutter Status: Acute Assessment and Plan: History of paroxysmal atrial flutter, having problems with atrial flutter RVR off and on since admission. Converted to sinus rhythm on diltiazem. Off anticoagulation as the patient may need surgery. Continue IV diltiazem 15 milligrams/hour for now Continue scheduled IV metoprolol as he remains NPO Transition to p.o. rate control agent when he is able to take medicatons p.o. Resume anticoagulation when acute situation has resolved and ok per surgery (2) Small bowel obstruction: Code(s): K56.609 - Unspecified intestinal obstruction, unspecified as to partial versus complete obstruction Status: Acute Assessment and Plan: Admitted on the with small-bowel obstruction, may need operative management. Followed by Dr. Reed. POD 1 small bowel resection (3) Hypertension: Code(s): I10 - Essential (primary) hypertension Status: Acute Assessment and Plan: Blood pressure controlled with IV diltiazem and scheduled IV metoprolol (4) Diabetes: Code(s): E11.9 - Type 2 diabetes mellitus without complications Status: Chronic Assessment and Plan: Treatment per hospitalist Subjective Date/time seen: 01/25/24 09:56 Interval history: Cardiology follow up for atrial flutter Date of service 01/24/2024: Feeling well s/p ileal resection yesterday. No abdominal pain. He remains tachycardic on telemetry, current in the 120's - 130's. Denies any palpitations, chest pain, or shortness of breath. Date of service 01/25/2024: Rate is much better controlled today. He feels well and has no cardiovascular complaints. Review of Systems Constitutional: Constitutional: Denies fever(s) Eyes: Eyes: Reports as per HPI ENT: Denies epistaxis Cardiovascular: Cardiovascular: Denies chest pain, Denies pedal edema, Denies leg edema, Denies lightheadedness, Denies palpitations and Denies dyspnea Respiratory: Respiratory: Denies chest congestion and Denies dyspnea Gastrointestinal: Gastrointestinal: Reports abdominal pain (Improved), Reports bloating and Denies hematochezia Genitourinary: Genitourinary: Denies hematuria Musculoskeletal: Musculoskeletal: Reports arthralgias Integumentary/Breasts: Skin/Breast: Reports system reviewed and no additional complaints, except as docu Neurologic: Reports system reviewed and no additional complaints, except as documented and Denies behavioral changes Psychiatric: Psychiatric: Denies behavioral changes Endocrine: Endocrine: Denies palpitations Exam Const: General: cooperative, healthy appearing, comfortable and no acute distress Orientation/consciousness: patient oriented x3 HENMT: Head: normal to inspection and no cranial bruits Ears: external ears normal Face/Nose/Sinus: Normal external nose present Face and sinus: normal facial exam Mouth: Yes Normal oral and palatal mucosa present Other: NG tube in place Eyes: General: appearance normal, both eyes and all related structures EOM: EOMs intact bilaterally Neck: Neck: normal visual inspection, supple and No JVD Thyroid: thyroid normal Carotids: no bruits Resp: Effort & Inspection: normal respiratory effort, able to speak in complete sentences and no audible wheezes Auscultation: clear to auscultation bilaterally Cardio: Jugular venous distension: no JVD Rate: regular rate Rhythm: abnormal rhythm Heart sounds: no murmurs Other: Intact dorsalis pedis pulses GI: Inspection: distended Auscultation: abnormal bowel sounds (Absent bowel sounds) Other: NG tube present Skin: General skin exam: normal color Lesions: no lesions Neuro: General: patient oriented x3 Speech: normal speech Extrem: General: normal to inspection and no pedal edema Psych: Appearance: grossly normal and well kempt
[2024-01-25 12:01] LABS: Glucose Point of Care 219 mg/dl (65-105)
--- NOTE | 2024-01-25 12:06 | PM.PNGS ---
Progress Note: A&P Assessment and Plan (1) Small bowel obstruction: Code(s): K56.609 - Unspecified intestinal obstruction, unspecified as to partial versus complete obstruction Status: Acute Assessment and Plan: Await return of bowel function Ambulate with assistance Continue PPN today since patient has already been NPO for several days Stimulate bowels with Dulcolax supp (2) Atrial fibrillation with rapid ventricular response: Code(s): I48.91 - Unspecified atrial fibrillation Status: Acute Assessment and Plan: Cardizem drip until tolerating PO. Continue per Cardiology. (3) Type 2 diabetes mellitus: Code(s): E11.9 - Type 2 diabetes mellitus without complications Status: Acute Subjective Subjective Date/Time Seen: 01/25/24 12:06 Interval history: Still no BM or flatus. Pain minimal. Up to side of bed yesterday but not much walking yet. Exam GI: Inspection: distended and incision (intact with anthony) GI Palp: Yes Soft to palpation and Yes Tenderness to palpation present (GI) (incisional) Auscultation: absent bowel sounds Objective Data Vital Signs Vital Signs: Vital Signs - 24 hr 01/24/24 14:01 01/24/24 16:00 01/24/24 16:14 Temperature Pulse Rate 114 H 122 H 122 H Respiratory Rate Blood Pressure 101/53 L 111/57 L Pulse Oximetry Oxygen Delivery Fraction of Inspired Oxygen 01/24/24 16:40 01/24/24 16:40 01/24/24 18:00 Temperature Pulse Rate 105 H 105 H 116 H Respiratory Rate Blood Pressure 111/57 L 111/57 L 117/60 Pulse Oximetry Oxygen Delivery Fraction of Inspired Oxygen 01/24/24 20:20 01/24/24 20:00 01/24/24 12:15 Temperature 37.3 C Pulse Rate 133 H 94 102 H Respiratory Rate 18 Blood Pressure 111/62 Pulse Oximetry 99 Oxygen Delivery Fraction of Inspired Oxygen 01/24/24 12:15 01/24/24 14:20 01/24/24 16:10 Temperature Pulse Rate 118 H 125 H Respiratory Rate Blood Pressure Pulse Oximetry Oxygen Delivery Room Air Fraction of Inspired Oxygen 01/24/24 16:10 01/24/24 18:10 01/24/24 20:00 Temperature Pulse Rate 115 H 136 H Respiratory Rate Blood Pressure Pulse Oximetry Oxygen Delivery Room Air Fraction of Inspired Oxygen 01/24/24 20:00 01/24/24 22:00 01/24/24 20:00 Temperature Pulse Rate 136 H 104 H 136 H Respiratory Rate 18 Blood Pressure Pulse Oximetry 99 Oxygen Delivery Room Air Fraction of Inspired Oxygen 01/24/24 22:00 01/24/24 23:29 01/24/24 23:20 Temperature Pulse Rate 104 H 128 H 128 H Respiratory Rate Blood Pressure Pulse Oximetry Oxygen Delivery Fraction of Inspired Oxygen 01/24/24 23:29 01/24/24 23:51 01/24/24 23:51 Temperature Pulse Rate 128 H 128 H 128 H Respiratory Rate 18 Blood Pressure Pulse Oximetry 99 Oxygen Delivery Room Air Fraction of Inspired Oxygen 01/25/24 00:00 01/25/24 02:00 01/25/24 02:00 Temperature 37.1 C Pulse Rate 93 103 H 103 H Respiratory Rate 16 Blood Pressure 116/64 Pulse Oximetry 96 Oxygen Delivery Fraction of Inspired Oxygen 01/25/24 03:00 01/25/24 04:00 01/25/24 04:00 Temperature 36.3 C L Pulse Rate 88 91 88 Respiratory Rate 16 Blood Pressure 131/44 L Pulse Oximetry 97 Oxygen Delivery Fraction of Inspired Oxygen 01/25/24 04:00 01/25/24 04:25 01/25/24 05:23 Temperature Pulse Rate 88 94 88 Respiratory Rate 16 Blood Pressure Pulse Oximetry 97 Oxygen Delivery Room Air Fraction of Inspired Oxygen 01/25/24 05:24 01/25/24 06:17 01/25/24 06:17 Temperature Pulse Rate 88 84 84 Respiratory Rate Blood Pressure Pulse Oximetry Oxygen Delivery Fraction of Inspired Oxygen 01/25/24 07:30 01/25/24 09:32 01/25/24 08:01 Temperature 37.6 C Pulse Rate 101 H 96 85 Respiratory Rate 18 Blood Pressure 123/72 Pulse Oximetry 98 Oxygen Delive
[2024-01-25 12:07] LABS: Triglycerides 72 mg/dL (<150)
[2024-01-25] MEDS: FAT EMULSIONS IV 20% 250 ML 20.83 ML IVPB (13:00)
[2024-01-25 16:29] LABS: Glucose Point of Care 210 mg/dl (65-105)
[2024-01-25 18:10] LABS: Glucose Point of Care 229 mg/dl (65-105)
[2024-01-26] VITALS (29 sets, daily range): BP systolic 106–120; BP diastolic 51–73; PULSE 80–108; RESP 16–20; TEMP 36.1–36.6; O2SAT 93–100
[2024-01-26] MEDS: INSULIN ASPART (*BKC) 100 UNITS/ML SUB-Q ×4 (00:11→17:02)
[2024-01-26] MEDS: METOPROLOL TARTRATE INJ 5 MG/5 ML VIAL IV PUSH ×6 (00:11→21:36)
[2024-01-26 00:24] LABS: Glucose Point of Care 203 mg/dl (65-105)
[2024-01-26] MEDS: dilTIAZem 100 MG/100 ML 100 MG/100 ML BAG 15 MG IV CONT ×3 (03:27→21:46)
[2024-01-26 04:40] LABS: Eosinophils Absolute Auto 0.2 K/mm3 (0-0.3); Eosinophils Percent Auto 4.4 % (0-4.4); Hematocrit 38.6 % (42.0-52.0); Hemoglobin 12.3 g/dL (14.0-18.0); Immature Granulocyte Absolute 0.05 K/mm3 (0.00-0.031); Immature Granulocyte Percent A 1.2 % (0-0.5); Lymphocytes Absolute Auto 0.89 K/mm3 (0.9-3.2); Lymphocytes Percent Auto 21.8 % (18.3-44.2); Mean Corpuscular HGB Conc 31.9 g/dl (32-36); Mean Corpuscular Hemoglobin 27.6 pg (26-34); Mean Corpuscular Volume 86.5 fl (80-100); Mean Platelet Volume 11.4 fl (7.4-10.4); Monocytes Absolute Auto 0.7 K/mm3 (0.1-0.6); Monocytes Percent Auto 15.9 % (2.6-8.5); Neutrophils Absolute Auto 2.3 K/mm3 (1.3-6.7); Neutrophils Percent Auto 55.7 % (45.5-73.1); Platelet Count Result 188 k/mm3 (150-375); Red Blood Count 4.46 M/mm3 (4.6-6.20); Red Cell Distribution Width 14.1 % (11.5-14.5); White Blood Count 4.1 K/mm3 (4.5-10.0)
[2024-01-26 04:51] LABS: Alanine Aminotransferase 12 U/L (6-50); Albumin Level 2.8 g/dL (3.5-5.1); Alkaline Phosphatase 47 U/L (38-126); Anion Gap 4 mmol/L (8-16); Aspartate Amino Transferase 14 U/L (17-59); Bilirubin,Total 0.4 mg/dL (0.2-1.3); Blood Urea Nitrogen 19 mg/dL (9-20); Calcium 8.5 mg/dL (8.4-10.2); Carbon Dioxide 23 mmol/L (22-30); Chloride 107 mmol/L (98-107); Estimated CRCL calculation 97 ml/min; Estimated Glomerular Filt Rate > 60; Glucose 202 mg/dL (65-110); Magnesium 2.1 mg/dL (1.6-2.3); Phosphorus 2.6 mg/dL (2.5-4.5); Potassium 3.8 mmol/L (3.4-5.0); Sodium 134 mmol/L (137-145)
[2024-01-26 06:01] LABS: Glucose Point of Care 228 mg/dl (65-105)
[2024-01-26] MEDS: AMINO ACIDS 4.25%/D5W/LYTES/CA 2,000 ML 100 ML IV CONT (06:02)
[2024-01-26] MEDS: ENOXAPARIN 40 MG/0.4 ML SYRINGE SUB-Q (08:14)
[2024-01-26] MEDS: PANTOPRAZOLE SODIUM IV 40 MG VIAL IV PUSH (08:14)
--- NOTE | 2024-01-26 09:07 | P.PNIM_ITS ---
Progress Note: A&P Assessment and Plan (1) Small bowel obstruction: Code(s): K56.609 - Unspecified intestinal obstruction, unspecified as to partial versus complete obstruction Status: Acute Assessment and Plan: NPO except ice chips, NG tube to suction, surgery has evaluated patient uncertain if he will dose to the operating room or not at this time. Surgery started patient on ertapenem once daily IV. 01/22: Patient to go to OR today 01/24/24: * Patient is postop day 1 from an ex lap with LOC and bowel resection * Continue NPO status * start PPN and lipids today * Ordered ambulate with assistance * Continue incentive spirometer q.2 hours * Rocephin discontinued per surgical team * IV fluids discontinued per surgical team * Denies passing any gas, no bowel sounds on assessment today 01/25/24: * Continue with current treatment plan * ambulate in room, get of bed to chair today 01/26/2024: * NG out * Clear liquid diet * Up to chair * Re-ordered PPN. Anticipate stopping that when he tolerates a regular diet. (2) Atrial fibrillation with rapid ventricular response: Code(s): I48.91 - Unspecified atrial fibrillation Status: Acute Assessment and Plan: Generally rate controlled with occasional paroxysms that increase heart rate. Continue telemetry monitoring. P.r.n. IV metoprolol. Oral medications held at this time due to bowel obstruction. No anticoagulation due to possible need for operative intervention. Rhythm is switching frequently from sinus to atrial fibrillation per review of telemetry. 01/22: OR postponed due to RVR last night. Patient moved to IMU and on diltiazem drip at 15 mg/hr converted to normal sinus at 0430 this morning. Cardiology assisted with care and saw patient today clearing him for OR. 01/24/24: * Continue to hold Eliquis * Continue with diltiazem drip at 15 milligrams/hour while NPO per Cardiology 01/25/24: * No change to current treatment plan 01/26/24: * Continue with lovenox. Will transition to PO Eliquis if he tolerates his clear liquids today. Will plan to transition off of the diltiazem gtt later this afternoon should he continue to do well with clear liquids. (3) Type 2 diabetes mellitus: Code(s): E11.9 - Type 2 diabetes mellitus without complications Status: Acute Assessment and Plan: Fingerstick glucose every 6 hours while NPO with sliding scale insulin. 01/24/24: * Blood sugar ranging 167-182 * Accu-Cheks change to Q 6 hour * Low-dose sliding scale insulin ordered * Patient being started on PPN and lipids * Continue to hold Farxiga and metformin 01/25/24: * BG ranging 199-216 * Will increase sliding scale insulin to medium dose sliding scale 01/26/24: * BG ranging 210-229. * Changing to corrective high dose SSI (4) Chronic anticoagulation: Code(s): Z79.01 - watermaster (current) use of anticoagulants Status: Acute Assessment and Plan: On hold at this time due to bowel obstruction and possible need to proceed to the OR. 01/22: Going to OR today 01/24/24: * Currently Eliquis on hold * Surgical team started Lovenox 40 mg daily 01/26/24: * Receiving lovenox instead of eliquis given recent NG. (5) Gastroesophageal reflux disease: Code(s): K21.9 - Gastro-esophageal reflux disease without esophagitis Status: Acute Assessment and Plan: IV pantoprazole while NPO 01/24/24: * Continue with Protonix (6) Paroxysmal atrial fibrillation: Code(s): I48.0 - Parox
--- NOTE | 2024-01-26 09:07 | PM.IMPN ---
Progress Note: A&P Assessment and Plan (1) Small bowel obstruction: Code(s): K56.609 - Unspecified intestinal obstruction, unspecified as to partial versus complete obstruction Status: Acute Assessment and Plan: NPO except ice chips, NG tube to suction, surgery has evaluated patient uncertain if he will dose to the operating room or not at this time. Surgery started patient on ertapenem once daily IV. 01/22: Patient to go to OR today 01/24/24: Patient is postop day 1 from an ex lap with LOC and bowel resection Continue NPO status start PPN and lipids today Ordered ambulate with assistance Continue incentive spirometer q.2 hours Rocephin discontinued per surgical team IV fluids discontinued per surgical team Denies passing any gas, no bowel sounds on assessment today 01/25/24: Continue with current treatment plan ambulate in room, get of bed to chair today 01/26/2024: NG out Clear liquid diet Up to chair Re-ordered PPN. Anticipate stopping that when he tolerates a regular diet. (2) Atrial fibrillation with rapid ventricular response: Code(s): I48.91 - Unspecified atrial fibrillation Status: Acute Assessment and Plan: Generally rate controlled with occasional paroxysms that increase heart rate. Continue telemetry monitoring. P.r.n. IV metoprolol. Oral medications held at this time due to bowel obstruction. No anticoagulation due to possible need for operative intervention. Rhythm is switching frequently from sinus to atrial fibrillation per review of telemetry. 01/22: OR postponed due to RVR last night. Patient moved to IMU and on diltiazem drip at 15 mg/hr converted to normal sinus at 0430 this morning. Cardiology assisted with care and saw patient today clearing him for OR. 01/24/24: Continue to hold Eliquis Continue with diltiazem drip at 15 milligrams/hour while NPO per Cardiology 01/25/24: No change to current treatment plan 01/26/24: Continue with lovenox. Will transition to PO Eliquis if he tolerates his clear liquids today. Will plan to transition off of the diltiazem gtt later this afternoon should he continue to do well with clear liquids. (3) Type 2 diabetes mellitus: Code(s): E11.9 - Type 2 diabetes mellitus without complications Status: Acute Assessment and Plan: Fingerstick glucose every 6 hours while NPO with sliding scale insulin. 01/24/24: Blood sugar ranging 167-182 Accu-Cheks change to Q 6 hour Low-dose sliding scale insulin ordered Patient being started on PPN and lipids Continue to hold Farxiga and metformin 01/25/24: BG ranging 199-216 Will increase sliding scale insulin to medium dose sliding scale 01/26/24: BG ranging 210-229. 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 01/22: Going to OR today 01/24/24: Currently Eliquis on hold Surgical team started Lovenox 40 mg daily 01/26/24: Receiving lovenox instead of eliquis given recent NG. (5) Gastroesophageal reflux disease: Code(s): K21.9 - Gastro-esophageal reflux disease without esophagitis Status: Acute Assessment and Plan: IV pantoprazole while NPO 01/24/24: Continue with Protonix (6) Paroxysmal atrial fibrillation: Code(s): I48.0 - Paroxysmal atrial fibrillation Status: Acute Assessment and Plan: 01/24/2024: Patient currently in a flutter with a rate of 120-130 on the monitor Cardiology following and increased metoprolol today Continue with Cardizem drip until tolerating p.o. 01/26/2024: Plan to d/c diltiazem gtt to oral agents if he tolerates PO A-fib with rate in the 90's on tele Subjective Date/time seen: 01/26/24 09:07 Interval history: Delfina jones
--- NOTE | 2024-01-26 11:46 | PM.PNCARD ---
Progress Note: A&P Assessment and Plan (1) Paroxysmal atrial flutter: Code(s): I48.92 - Unspecified atrial flutter Status: Acute Assessment and Plan: History of paroxysmal atrial flutter, having problems with atrial flutter RVR off and on since admission. In and out of atrial flutter. Recommend resuming Eliquis 5 mg p.o. b.i.d. when able to take p.o.. Continue IV diltiazem 15 milligrams/hour for now Continue scheduled IV metoprolol as he remains NPO Transition to p.o. rate control agent when he is able to take medicatons p.o. Resume anticoagulation when acute situation has resolved and ok per surgery Heart rate is controlled. Resume home meds when able to take p.o. (2) Small bowel obstruction: Code(s): K56.609 - Unspecified intestinal obstruction, unspecified as to partial versus complete obstruction Status: Acute Assessment and Plan: Admitted on the with small-bowel obstruction, may need operative management. Followed by Dr. Reed. POD 1 small bowel resection (3) Hypertension: Code(s): I10 - Essential (primary) hypertension Status: Acute Assessment and Plan: Blood pressure controlled with IV diltiazem and scheduled IV metoprolol (4) Diabetes: Code(s): E11.9 - Type 2 diabetes mellitus without complications Status: Chronic Assessment and Plan: Treatment per hospitalist Subjective Date/time seen: 01/26/24 11:46 Interval history: Cardiology follow up for atrial flutter Date of service 01/24/2024: Feeling well s/p ileal resection yesterday. No abdominal pain. He remains tachycardic on telemetry, current in the 120's - 130's. Denies any palpitations, chest pain, or shortness of breath. Date of service 01/25/2024: Rate is much better controlled today. He feels well and has no cardiovascular complaints. Date of service 01/26/2024: Heart rate is controlled. Still on diltiazem drip. NG just removed today. No chest pain or shortness of breath Review of Systems Constitutional: Constitutional: Denies fever(s) Eyes: Eyes: Reports as per HPI ENT: Denies epistaxis Cardiovascular: Cardiovascular: Denies chest pain, Denies pedal edema, Denies leg edema, Denies lightheadedness, Denies palpitations and Denies dyspnea Respiratory: Respiratory: Denies chest congestion and Denies dyspnea Gastrointestinal: Gastrointestinal: Reports abdominal pain (Improved), Reports bloating and Denies hematochezia Genitourinary: Genitourinary: Denies hematuria Musculoskeletal: Musculoskeletal: Reports arthralgias Integumentary/Breasts: Skin/Breast: Reports system reviewed and no additional complaints, except as docu Neurologic: Reports system reviewed and no additional complaints, except as documented and Denies behavioral changes Psychiatric: Psychiatric: Denies behavioral changes Endocrine: Endocrine: Denies palpitations Exam Narrative: at bedside. Const: General: cooperative, healthy appearing, comfortable and no acute distress Orientation/consciousness: patient oriented x3 HENMT: Head: normal to inspection and no cranial bruits Ears: external ears normal Face/Nose/Sinus: Normal external nose present and normal facial exam Face and sinus: normal facial exam Mouth: Yes Normal oral and palatal mucosa present Other: NG tube in place Eyes: General: appearance normal, both eyes and all related structures Sclera: sclerae normal Neck: Neck: normal visual inspection, supple and No JVD Thyroid: thyroid normal Carotids: no bruits Resp: Effort & Inspection: normal respiratory effort, able to speak in complete sentences and no audible wheezes Auscultation: clear to auscultation bilaterally Cardio: Jugular venous distension: no JVD Rate: regular rate Rhythm: abnormal rhythm Heart sounds: no murmurs Other: Intact dorsalis pedis pulses GI: Inspection: distended Auscultation: abnormal bowel sounds (Absent bowel
[2024-01-26 12:11] LABS: Glucose Point of Care 212 mg/dl (65-105)
[2024-01-26] MEDS: FAT EMULSIONS IV 20% 250 ML 20.83 ML IVPB (12:42)
--- NOTE | 2024-01-26 14:17 | PM.PNGS ---
Progress Note: A&P Assessment and Plan (1) Small bowel obstruction: Code(s): K56.609 - Unspecified intestinal obstruction, unspecified as to partial versus complete obstruction Status: Acute Assessment and Plan: NG removed and started on clear liquids today Await further return of bowel function, increasing ambulation will help Continue PPN until tolerating full liquids (2) Atrial fibrillation with rapid ventricular response: Code(s): I48.91 - Unspecified atrial fibrillation Status: Acute Assessment and Plan: Cardizem drip until tolerating PO. Continue per Cardiology. (3) Type 2 diabetes mellitus: Code(s): E11.9 - Type 2 diabetes mellitus without complications Status: Acute Subjective Subjective Date/Time Seen: 01/26/24 14:17 Interval history: Had BM overnight. No nausea/vomiting. Still feeling a little bloated. Not ambulating much yet. Exam GI: Inspection: distended and incision (intact with anthony) GI Palp: Yes Soft to palpation and Yes Tenderness to palpation present (GI) (incisional) Auscultation: Hypoactive bowel sounds present Objective Data Vital Signs Vital Signs: Vital Signs - 24 hr 01/25/24 15:39 01/25/24 16:00 01/25/24 16:00 Temperature 37.0 C Pulse Rate 90 98 Respiratory Rate 16 Blood Pressure 110/60 Pulse Oximetry 98 Oxygen Delivery Room Air Fraction of Inspired Oxygen 01/25/24 16:20 01/25/24 18:00 01/25/24 16:00 Temperature Pulse Rate 101 H 86 98 Respiratory Rate Blood Pressure Pulse Oximetry Oxygen Delivery Fraction of Inspired Oxygen 01/25/24 18:06 01/25/24 19:55 01/25/24 20:00 Temperature 36.4 C Pulse Rate 93 100 100 Respiratory Rate 18 Blood Pressure 111/62 111/62 Pulse Oximetry 97 Oxygen Delivery Fraction of Inspired Oxygen 01/25/24 20:27 01/25/24 20:30 01/25/24 23:27 Temperature Pulse Rate 97 97 96 Respiratory Rate Blood Pressure 111/62 Pulse Oximetry Oxygen Delivery Fraction of Inspired Oxygen 01/25/24 20:00 01/25/24 20:00 01/25/24 22:00 Temperature Pulse Rate 100 102 H 92 Respiratory Rate 18 Blood Pressure Pulse Oximetry 97 Oxygen Delivery Room Air Fraction of Inspired Oxygen 01/25/24 23:53 01/26/24 00:11 01/26/24 00:00 Temperature 36.4 C L Pulse Rate 96 101 H 98 Respiratory Rate 16 Blood Pressure 114/56 L 114/56 L Pulse Oximetry 98 Oxygen Delivery Fraction of Inspired Oxygen 01/26/24 00:00 01/26/24 00:00 01/26/24 01:57 Temperature Pulse Rate 96 98 90 Respiratory Rate 16 Blood Pressure Pulse Oximetry 98 Oxygen Delivery Room Air Fraction of Inspired Oxygen 01/26/24 01:57 01/26/24 03:23 01/26/24 03:07 Temperature 36.3 C L Pulse Rate 90 106 H 106 H Respiratory Rate 20 Blood Pressure 106/63 Pulse Oximetry 93 Oxygen Delivery Fraction of Inspired Oxygen 01/26/24 03:27 01/26/24 03:28 01/26/24 03:33 Temperature Pulse Rate 106 H 106 H 106 H Respiratory Rate 20 Blood Pressure 106/63 Pulse Oximetry 93 Oxygen Delivery Room Air Fraction of Inspired Oxygen 21 01/26/24 04:00 01/26/24 06:00 01/26/24 06:49 Temperature Pulse Rate 84 91 91 Respiratory Rate Blood Pressure Pulse Oximetry Oxygen Delivery Fraction of Inspired Oxygen 01/26/24 08:06 01/26/24 08:13 01/26/24 08:00 Temperature 36.2 C L Pulse Rate 97 97 Respiratory Rate 16 Blood Pressure 111/51 L Pulse Oximetry 98 98 Oxygen Delivery Room Air Fraction of Inspired Oxygen 01/26/24 08:00 01/26/24 10:50 01/26/24 10:50 Temperature Pulse Rate 97 92 92 Respiratory Rate Blood Pressure 111/51 L 106/66 106/66 Pulse Oximetry Oxygen Delivery Fraction of Inspired Oxygen 01/26/24 11:04 01/26/24 08:00 01/26/24 10:00 Temperature 36.6 C Pulse Rate 80 99 86 Respiratory Rate 16 Blood Pressure 109/60 Pulse Oximetry 99 O
[2024-01-26 17:23] LABS: Glucose Point of Care 213 mg/dl (65-105)
[2024-01-27] VITALS (27 sets, daily range): BP systolic 114–131; BP diastolic 63–72; PULSE 73–97; RESP 16–18; TEMP 36.2–37; O2SAT 97–99
[2024-01-27 00:36] LABS: Glucose Point of Care 216 mg/dl (65-105)
[2024-01-27] MEDS: INSULIN ASPART (*BKC) 100 UNITS/ML SUB-Q ×4 (01:43→18:02)
[2024-01-27] MEDS: METOPROLOL TARTRATE INJ 5 MG/5 ML VIAL IV PUSH ×5 (01:44→18:03)
[2024-01-27] MEDS: AMINO ACIDS 4.25%/D5W/LYTES/CA 2,000 ML 100 ML IV CONT (01:53)
[2024-01-27 05:03] LABS: Basophils Absolute Auto 0.1 K/mm3 (0.0-0.1); Basophils Percent Auto 1.6 % (0.2-1.2); Eosinophils Absolute Auto 0.2 K/mm3 (0-0.3); Eosinophils Percent Auto 4.2 % (0-4.4); Hematocrit 39.9 % (42.0-52.0); Hemoglobin 12.6 g/dL (14.0-18.0); Immature Granulocyte Absolute 0.05 K/mm3 (0.00-0.031); Lymphocytes Absolute Auto 1.03 K/mm3 (0.9-3.2); Lymphocytes Percent Auto 20.4 % (18.3-44.2); Mean Corpuscular HGB Conc 31.6 g/dl (32-36); Mean Corpuscular Hemoglobin 27.6 pg (26-34); Mean Corpuscular Volume 87.3 fl (80-100); Mean Platelet Volume 11.4 fl (7.4-10.4); Monocytes Absolute Auto 0.9 K/mm3 (0.1-0.6); Neutrophils Absolute Auto 2.8 K/mm3 (1.3-6.7); Neutrophils Percent Auto 54.8 % (45.5-73.1); Platelet Count Result 190 k/mm3 (150-375); Red Blood Count 4.57 M/mm3 (4.6-6.20); Red Cell Distribution Width 13.9 % (11.5-14.5); White Blood Count 5.1 K/mm3 (4.5-10.0)
[2024-01-27 05:23] LABS: Alanine Aminotransferase 15 U/L (6-50); Albumin Level 3.1 g/dL (3.5-5.1); Alkaline Phosphatase 41 U/L (38-126); Anion Gap 7 mmol/L (8-16); Aspartate Amino Transferase 17 U/L (17-59); Bilirubin,Total 0.5 mg/dL (0.2-1.3); Blood Urea Nitrogen 20 mg/dL (9-20); Calcium 9.2 mg/dL (8.4-10.2); Carbon Dioxide 21 mmol/L (22-30); Chloride 105 mmol/L (98-107); Estimated CRCL calculation 97 ml/min; Estimated Glomerular Filt Rate > 60; Glucose 217 mg/dL (65-110); Magnesium 1.9 mg/dL (1.6-2.3); Phosphorus 3.6 mg/dL (2.5-4.5); Sodium 133 mmol/L (137-145)
[2024-01-27] MEDS: dilTIAZem 100 MG/100 ML 100 MG/100 ML BAG 15 MG IV CONT (05:23)
[2024-01-27 06:32] LABS: Glucose Point of Care 223 mg/dl (65-105)
[2024-01-27] MEDS: PANTOPRAZOLE SODIUM IV 40 MG VIAL IV PUSH (10:29)
[2024-01-27] MEDS: ENOXAPARIN 40 MG/0.4 ML SYRINGE SUB-Q (10:30)
--- NOTE | 2024-01-27 11:02 | PM.PNCARD ---
Progress Note: A&P Assessment and Plan (1) Paroxysmal atrial flutter: Code(s): I48.92 - Unspecified atrial flutter Status: Acute Assessment and Plan: History of paroxysmal atrial flutter, having problems with atrial flutter RVR off and on since admission. In and out of atrial flutter. Recommend resuming Eliquis 5 mg p.o. b.i.d. when able to take p.o.. Continue IV diltiazem but will reduce it down to 10 milligrams/hour for now. Starting to take some p.o. but I am concerned that he may not have adequate absorption of oral medications quite yet. Continue scheduled IV metoprolol but will change it to 5 mg IV Q 6 hours Transition to p.o. rate control agent when he is able to take medicatons p.o. Resume anticoagulation when acute situation has resolved and ok per surgery Heart rate is controlled. Resume home meds when able to take p.o. Appears to be a little volume overloaded. Will give furosemide 20 mg IV x1 (2) Small bowel obstruction: Code(s): K56.609 - Unspecified intestinal obstruction, unspecified as to partial versus complete obstruction Status: Acute Assessment and Plan: Admitted on the with small-bowel obstruction, may need operative management. Followed by Dr. Reed. POD 1 small bowel resection (3) Hypertension: Code(s): I10 - Essential (primary) hypertension Status: Acute Assessment and Plan: Blood pressure controlled with IV diltiazem and scheduled IV metoprolol (4) Diabetes: Code(s): E11.9 - Type 2 diabetes mellitus without complications Status: Chronic Assessment and Plan: Treatment per hospitalist Subjective Date/time seen: 01/27/24 11:02 Interval history: Cardiology follow up for atrial flutter Date of service 01/24/2024: Feeling well s/p ileal resection yesterday. No abdominal pain. He remains tachycardic on telemetry, current in the 120's - 130's. Denies any palpitations, chest pain, or shortness of breath. Date of service 01/25/2024: Rate is much better controlled today. He feels well and has no cardiovascular complaints. Date of service 01/26/2024: Heart rate is controlled. Still on diltiazem drip. NG just removed today. No chest pain or shortness of breath Date of service 01/27/2024: Heart rate controlled. No chest pain. Does have some abdominal distention still. NG is still out and taking some p.o. Review of Systems Constitutional: Constitutional: Denies fever(s) Eyes: Eyes: Reports as per HPI ENT: Denies epistaxis Cardiovascular: Cardiovascular: Denies chest pain, Denies pedal edema, Denies leg edema, Denies lightheadedness, Denies palpitations and Denies dyspnea Respiratory: Respiratory: Denies chest congestion and Denies dyspnea Gastrointestinal: Gastrointestinal: Reports abdominal pain (Improved), Reports bloating and Denies hematochezia Genitourinary: Genitourinary: Denies hematuria Musculoskeletal: Musculoskeletal: Reports arthralgias Integumentary/Breasts: Skin/Breast: Reports system reviewed and no additional complaints, except as docu Neurologic: Reports system reviewed and no additional complaints, except as documented and Denies behavioral changes Psychiatric: Psychiatric: Denies behavioral changes Endocrine: Endocrine: Denies palpitations Exam Narrative: at bedside. Const: General: cooperative, healthy appearing, comfortable and no acute distress Orientation/consciousness: patient oriented x3 HENMT: Head: normal to inspection and no cranial bruits Ears: external ears normal Face/Nose/Sinus: Normal external nose present and normal facial exam Face and sinus: normal facial exam Mouth: Yes Normal oral and palatal mucosa present Other: NG tube in place Eyes: General: appearance normal, both eyes and all related structures Sclera: sclerae normal Neck: Neck: normal visual inspection, supple and No JVD Thyroid: thyroid normal Carotids: no bruits Resp
--- NOTE | 2024-01-27 11:50 | PM.PNGS ---
Progress Note: A&P Assessment and Plan (1) Small bowel obstruction: Code(s): K56.609 - Unspecified intestinal obstruction, unspecified as to partial versus complete obstruction Status: Acute Assessment and Plan: Still awaiting return of bowel function Stimulate with Dulcolax supp today Continue PPN Increase activity (2) Postoperative ileus: Code(s): K91.89 - Other postprocedural complications and disorders of digestive system; K56.7 - Ileus, unspecified Status: Acute (3) Atrial fibrillation with rapid ventricular response: Code(s): I48.91 - Unspecified atrial fibrillation Status: Acute Assessment and Plan: Cardizem drip until tolerating PO. Continue per Cardiology. (4) Type 2 diabetes mellitus: Code(s): E11.9 - Type 2 diabetes mellitus without complications Status: Acute Subjective Subjective Date/Time Seen: 01/27/24 11:50 Interval history: No BM for 2 days. No flatus. Mild nausea but no vomiting. Feeling distended. Exam GI: Inspection: distended and incision (intact with anthony) GI Palp: Yes Soft to palpation and Yes Tenderness to palpation present (GI) (incisional) Auscultation: Hypoactive bowel sounds present Objective Data Vital Signs Vital Signs: Vital Signs - 24 hr 01/26/24 12:00 01/26/24 12:42 01/26/24 14:00 Temperature Pulse Rate 83 82 108 H Respiratory Rate Blood Pressure Pulse Oximetry Oxygen Delivery 01/26/24 12:00 01/26/24 12:00 01/26/24 16:00 Temperature 36.1 C L Pulse Rate 87 105 H Respiratory Rate 16 Blood Pressure 109/60 117/54 L Pulse Oximetry 97 100 Oxygen Delivery Room Air 01/26/24 16:00 01/26/24 17:01 01/26/24 16:00 Temperature Pulse Rate 105 H 100 108 H Respiratory Rate Blood Pressure 117/54 L Pulse Oximetry Oxygen Delivery 01/26/24 16:00 01/26/24 18:00 01/26/24 18:00 Temperature Pulse Rate 108 H 108 H Respiratory Rate Blood Pressure 120/73 Pulse Oximetry 97 Oxygen Delivery Room Air 01/26/24 20:45 01/26/24 21:34 01/26/24 21:34 Temperature 36.2 C L Pulse Rate 86 86 86 Respiratory Rate 18 Blood Pressure 113/59 L 113/59 L 113/59 L Pulse Oximetry 99 Oxygen Delivery 01/26/24 21:36 01/26/24 21:46 01/26/24 20:00 Temperature Pulse Rate 88 81 86 Respiratory Rate 18 Blood Pressure 113/59 L Pulse Oximetry 99 Oxygen Delivery Room Air 01/26/24 20:00 01/26/24 22:00 01/27/24 00:04 Temperature 36.6 C Pulse Rate 88 84 87 Respiratory Rate 18 Blood Pressure 126/72 Pulse Oximetry 98 Oxygen Delivery 01/27/24 00:15 01/27/24 00:00 01/27/24 00:00 Temperature Pulse Rate 87 87 80 Respiratory Rate 18 Blood Pressure 126/72 Pulse Oximetry 98 Oxygen Delivery Room Air 01/27/24 01:44 01/27/24 02:00 01/27/24 02:00 Temperature Pulse Rate 83 79 79 Respiratory Rate Blood Pressure 126/72 Pulse Oximetry Oxygen Delivery 01/27/24 04:32 01/27/24 04:00 01/27/24 04:00 Temperature 36.5 C Pulse Rate 81 81 81 Respiratory Rate 18 18 Blood Pressure 123/65 123/65 Pulse Oximetry 97 97 Oxygen Delivery Room Air 01/27/24 04:00 01/27/24 04:26 01/27/24 05:23 Temperature Pulse Rate 77 82 82 Respiratory Rate Blood Pressure 123/65 Pulse Oximetry Oxygen Delivery 01/27/24 05:27 01/27/24 06:00 01/27/24 06:00 Temperature Pulse Rate 82 75 81 Respiratory Rate Blood Pressure 114/67 114/67 Pulse Oximetry Oxygen Delivery 01/27/24 06:00 01/27/24 08:00 01/27/24 10:29 Temperature 36.8 C Pulse Rate 80 78 84 Respiratory Rate 18 Blood Pressure 126/66 Pulse Oximetry 99 Oxygen Delivery 01/27/24 08:00 01/27/24 10:00 01/27/24 08:00 Temperature Pulse Rate 78 73 Respiratory Rate Blood Pressure 126/66 129/67 Pulse Oximetry 99 Oxygen Delivery Room Air 01/27/24 08:00 01/27/24 10:00 Temperature Pulse Rate 80 73
[2024-01-27] MEDS: dilTIAZem 100 MG/100 ML 100 MG/100 ML BAG 10 MG IV CONT ×2 (11:56→23:18)
[2024-01-27 12:27] LABS: Triglycerides 119 mg/dL (<150)
[2024-01-27 12:31] LABS: Glucose Point of Care 220 mg/dl (65-105)
--- NOTE | 2024-01-27 13:13 | P.PNIM_ITS ---
Progress Note: A&P Assessment and Plan (1) Small bowel obstruction: Code(s): K56.609 - Unspecified intestinal obstruction, unspecified as to partial versus complete obstruction Status: Acute Assessment and Plan: NPO except ice chips, NG tube to suction, surgery has evaluated patient uncertain if he will dose to the operating room or not at this time. Surgery started patient on ertapenem once daily IV. 01/22: Patient to go to OR today 01/24/24: * Patient is postop day 1 from an ex lap with LOC and bowel resection * Continue NPO status * start PPN and lipids today * Ordered ambulate with assistance * Continue incentive spirometer q.2 hours * Rocephin discontinued per surgical team * IV fluids discontinued per surgical team * Denies passing any gas, no bowel sounds on assessment today 01/25/24: * Continue with current treatment plan * ambulate in room, get of bed to chair today 01/26/2024: * NG out * Clear liquid diet * Up to chair * Re-ordered PPN. Anticipate stopping that when he tolerates a regular diet. 01/26: * Awaiting return of bowel function * Remains on clear liquid diet * Dulcolax suppository today per surgery (2) Atrial fibrillation with rapid ventricular response: Code(s): I48.91 - Unspecified atrial fibrillation Status: Acute Assessment and Plan: Generally rate controlled with occasional paroxysms that increase heart rate. Continue telemetry monitoring. P.r.n. IV metoprolol. Oral medications held at this time due to bowel obstruction. No anticoagulation due to possible need for operative intervention. Rhythm is switching frequently from sinus to atrial fibrillation per review of telemetry. 01/22: OR postponed due to RVR last night. Patient moved to IMU and on diltiazem drip at 15 mg/hr converted to normal sinus at 0430 this morning. Cardiology assisted with care and saw patient today clearing him for OR. 01/24/24: * Continue to hold Eliquis * Continue with diltiazem drip at 15 milligrams/hour while NPO per Cardiology 01/25/24: * No change to current treatment plan 01/26/24: * Continue with lovenox. Will transition to PO Eliquis if he tolerates his clear liquids today. Will plan to transition off of the diltiazem gtt later this afternoon should he continue to do well with clear liquids. 01/26: * No change to current treatment (3) Type 2 diabetes mellitus: Code(s): E11.9 - Type 2 diabetes mellitus without complications Status: Acute Assessment and Plan: Fingerstick glucose every 6 hours while NPO with sliding scale insulin. 01/24/24: * Blood sugar ranging 167-182 * Accu-Cheks change to Q 6 hour * Low-dose sliding scale insulin ordered * Patient being started on PPN and lipids * Continue to hold Farxiga and metformin 01/25/24: * BG ranging 199-216 * Will increase sliding scale insulin to medium dose sliding scale 01/26/24: * BG ranging 210-229. * Changing to corrective high dose SSI 01/26: * Blood sugars still ranging in the 200s. 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 01/22: Going to OR today 01/24/24: * Currently Eliquis on hold * Surgical team started Lovenox 40 mg daily 01/26/24: * Receiving lovenox instead of eliquis given recent NG. 01/26: * Continue current
--- NOTE | 2024-01-27 13:13 | PM.IMPN ---
Progress Note: A&P Assessment and Plan (1) Small bowel obstruction: Code(s): K56.609 - Unspecified intestinal obstruction, unspecified as to partial versus complete obstruction Status: Acute Assessment and Plan: NPO except ice chips, NG tube to suction, surgery has evaluated patient uncertain if he will dose to the operating room or not at this time. Surgery started patient on ertapenem once daily IV. 01/22: Patient to go to OR today 01/24/24: Patient is postop day 1 from an ex lap with LOC and bowel resection Continue NPO status start PPN and lipids today Ordered ambulate with assistance Continue incentive spirometer q.2 hours Rocephin discontinued per surgical team IV fluids discontinued per surgical team Denies passing any gas, no bowel sounds on assessment today 01/25/24: Continue with current treatment plan ambulate in room, get of bed to chair today 01/26/2024: NG out Clear liquid diet Up to chair Re-ordered PPN. Anticipate stopping that when he tolerates a regular diet. 01/26: Awaiting return of bowel function Remains on clear liquid diet Dulcolax suppository today per surgery (2) Atrial fibrillation with rapid ventricular response: Code(s): I48.91 - Unspecified atrial fibrillation Status: Acute Assessment and Plan: Generally rate controlled with occasional paroxysms that increase heart rate. Continue telemetry monitoring. P.r.n. IV metoprolol. Oral medications held at this time due to bowel obstruction. No anticoagulation due to possible need for operative intervention. Rhythm is switching frequently from sinus to atrial fibrillation per review of telemetry. 01/22: OR postponed due to RVR last night. Patient moved to IMU and on diltiazem drip at 15 mg/hr converted to normal sinus at 0430 this morning. Cardiology assisted with care and saw patient today clearing him for OR. 01/24/24: Continue to hold Eliquis Continue with diltiazem drip at 15 milligrams/hour while NPO per Cardiology 01/25/24: No change to current treatment plan 01/26/24: Continue with lovenox. Will transition to PO Eliquis if he tolerates his clear liquids today. Will plan to transition off of the diltiazem gtt later this afternoon should he continue to do well with clear liquids. 01/26: No change to current treatment (3) Type 2 diabetes mellitus: Code(s): E11.9 - Type 2 diabetes mellitus without complications Status: Acute Assessment and Plan: Fingerstick glucose every 6 hours while NPO with sliding scale insulin. 01/24/24: Blood sugar ranging 167-182 Accu-Cheks change to Q 6 hour Low-dose sliding scale insulin ordered Patient being started on PPN and lipids Continue to hold Farxiga and metformin 01/25/24: BG ranging 199-216 Will increase sliding scale insulin to medium dose sliding scale 01/26/24: BG ranging 210-229. Changing to corrective high dose SSI 01/26: Blood sugars still ranging in the 200s. 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 01/22: Going to OR today 01/24/24: Currently Eliquis on hold Surgical team started Lovenox 40 mg daily 01/26/24: Receiving lovenox instead of eliquis given recent NG. 01/26: Continue current treatment (5) Gastroesophageal reflux disease: Code(s): K21.9 - Gastro-esophageal reflux disease without esophagitis Status: Acute Assessment and Plan: IV pantoprazole while NPO 01/24/24: Continue with Protonix (6) Paroxysmal atrial fibrillation: Code(s): I48.0 - Paroxysmal atrial fibrillation Status: Acute Assessment and Plan: 01/24/2024: Patient currently in a flutter with a rate of 120-130 on the monitor Cardiolog
[2024-01-27] MEDS: FUROSEMIDE INJ 40 MG/4 ML VIAL 20 MG IV PUSH (13:20)
[2024-01-27] MEDS: BISACODYL 10 MG SUPPOSITORY RECTAL (13:21)
[2024-01-27] MEDS: FAT EMULSIONS IV 20% 250 ML 20.8 ML IVPB (13:22)
[2024-01-27 16:17] LABS: Glucose Point of Care 221 mg/dl (65-105)
[2024-01-27] MEDS: INSULIN GLARGINE (*BKC) 100 UNITS/ML 6 UNITS SUB-Q (21:15)
[2024-01-27 21:42] LABS: Glucose Point of Care 208 mg/dl (65-105)
[2024-01-28] VITALS (24 sets, daily range): BP systolic 117–137; BP diastolic 64–72; PULSE 76–98; RESP 14–20; TEMP 36.2–36.9; O2SAT 97–99
[2024-01-28] MEDS: AMINO ACIDS 4.25%/D5W/LYTES/CA 2,000 ML 100 ML IV CONT ×2 (00:05→16:41)
[2024-01-28] MEDS: INSULIN ASPART (*BKC) 100 UNITS/ML SUB-Q ×3 (00:09→19:23)
[2024-01-28] MEDS: METOPROLOL TARTRATE INJ 5 MG/5 ML VIAL IV PUSH ×2 (00:09→05:46)
[2024-01-28 00:40] LABS: Glucose Point of Care 213 mg/dl (65-105)
[2024-01-28 05:12] LABS: Basophils Absolute Auto 0.1 K/mm3 (0.0-0.1); Eosinophils Absolute Auto 0.2 K/mm3 (0-0.3); Eosinophils Percent Auto 3.1 % (0-4.4); Hematocrit 40.7 % (42.0-52.0); Hemoglobin 12.7 g/dL (14.0-18.0); Immature Granulocyte Absolute 0.14 K/mm3 (0.00-0.031); Immature Granulocyte Percent A 1.9 % (0-0.5); Lymphocytes Absolute Auto 0.91 K/mm3 (0.9-3.2); Lymphocytes Percent Auto 12.7 % (18.3-44.2); Mean Corpuscular HGB Conc 31.2 g/dl (32-36); Mean Corpuscular Hemoglobin 27.1 pg (26-34); Mean Platelet Volume 11.2 fl (7.4-10.4); Monocytes Absolute Auto 1.1 K/mm3 (0.1-0.6); Neutrophils Absolute Auto 4.8 K/mm3 (1.3-6.7); Neutrophils Percent Auto 66.3 % (45.5-73.1); Platelet Count Result 217 k/mm3 (150-375); Red Blood Count 4.68 M/mm3 (4.6-6.20); Red Cell Distribution Width 14.1 % (11.5-14.5); White Blood Count 7.2 K/mm3 (4.5-10.0)
[2024-01-28 05:20] LABS: INR 0.9; Prothrombin Time 13.1 Seconds (11.1-14.7)
[2024-01-28 05:21] LABS: Alanine Aminotransferase 180 U/L (6-50); Albumin Level 3.3 g/dL (3.5-5.1); Alkaline Phosphatase 86 U/L (38-126); Anion Gap 7 mmol/L (8-16); Aspartate Amino Transferase 246 U/L (17-59); Bilirubin,Total 0.6 mg/dL (0.2-1.3); Blood Urea Nitrogen 24 mg/dL (9-20); Calcium 9.5 mg/dL (8.4-10.2); Carbon Dioxide 21 mmol/L (22-30); Chloride 101 mmol/L (98-107); Estimated CRCL calculation 97 ml/min; Estimated Glomerular Filt Rate > 60; Glucose 245 mg/dL (65-110); Magnesium 1.8 mg/dL (1.6-2.3); Partial Thromboplastin Time 34.3 Seconds (22.3-36.8); Phosphorus 3.8 mg/dL (2.5-4.5); Potassium 4.1 mmol/L (3.4-5.0); Sodium 129 mmol/L (137-145)
[2024-01-28 05:26] LABS: Glucose Point of Care 233 mg/dl (65-105)
[2024-01-28 05:30] LABS: Transferrin 193 mg/dL (206-381)
[2024-01-28] MEDS: ONDANSETRON INJ 4 MG/2 ML VIAL IV PUSH ×3 (07:21→23:49)
[2024-01-28] MEDS: dilTIAZem 100 MG/100 ML 100 MG/100 ML BAG 10 MG IV CONT ×2 (08:43→19:30)
[2024-01-28] MEDS: ENOXAPARIN 40 MG/0.4 ML SYRINGE SUB-Q (08:45)
[2024-01-28] MEDS: PANTOPRAZOLE SODIUM IV 40 MG VIAL IV PUSH (08:45)
--- NOTE | 2024-01-28 09:20 | P.PNIM_ITS ---
Progress Note: A&P Assessment and Plan (1) Small bowel obstruction: Code(s): K56.609 - Unspecified intestinal obstruction, unspecified as to partial versus complete obstruction Status: Acute Assessment and Plan: NPO except ice chips, NG tube to suction, surgery has evaluated patient uncertain if he will dose to the operating room or not at this time. Surgery started patient on ertapenem once daily IV. 01/22: Patient to go to OR today 01/24/24: * Patient is postop day 1 from an ex lap with LOC and bowel resection * Continue NPO status * start PPN and lipids today * Ordered ambulate with assistance * Continue incentive spirometer q.2 hours * Rocephin discontinued per surgical team * IV fluids discontinued per surgical team * Denies passing any gas, no bowel sounds on assessment today 01/25/24: * Continue with current treatment plan * ambulate in room, get of bed to chair today 01/26/2024: * NG out * Clear liquid diet * Up to chair * Re-ordered PPN. Anticipate stopping that when he tolerates a regular diet. 01/26: * Awaiting return of bowel function * Remains on clear liquid diet * Dulcolax suppository today per surgery 01/27: * Repeat Dulcolax suppository today * Still awaiting return of bowel function * Abdomen appears more distended today (2) Atrial fibrillation with rapid ventricular response: Code(s): I48.91 - Unspecified atrial fibrillation Status: Acute Assessment and Plan: Generally rate controlled with occasional paroxysms that increase heart rate. Continue telemetry monitoring. P.r.n. IV metoprolol. Oral medications held at this time due to bowel obstruction. No anticoagulation due to possible need for operative intervention. Rhythm is switching frequently from sinus to atrial fibrillation per review of telemetry. 01/22: OR postponed due to RVR last night. Patient moved to IMU and on diltiazem drip at 15 mg/hr converted to normal sinus at 0430 this morning. Cardiology assisted with care and saw patient today clearing him for OR. 01/24/24: * Continue to hold Eliquis * Continue with diltiazem drip at 15 milligrams/hour while NPO per Cardiology 01/25/24: * No change to current treatment plan 01/26/24: * Continue with lovenox. Will transition to PO Eliquis if he tolerates his clear liquids today. Will plan to transition off of the diltiazem gtt later this afternoon should he continue to do well with clear liquids. 01/26: * No change to current treatment 01/27: * No change (3) Type 2 diabetes mellitus: Code(s): E11.9 - Type 2 diabetes mellitus without complications Status: Acute Assessment and Plan: Fingerstick glucose every 6 hours while NPO with sliding scale insulin. 01/24/24: * Blood sugar ranging 167-182 * Accu-Cheks change to Q 6 hour * Low-dose sliding scale insulin ordered * Patient being started on PPN and lipids * Continue to hold Farxiga and metformin 01/25/24: * BG ranging 199-216 * Will increase sliding scale insulin to medium dose sliding scale 01/26/24: * BG ranging 210-229. * Changing to corrective high dose SSI 01/26: * Blood sugars still ranging in the 200s. * Will start on low-dose Lantus 6 units 01/27: * Increase Lantus to 10 units (4) Chronic anticoagulation: Code(s): Z79.01 - intermediate (current) use of anticoagulants Status: Acute Assessment and Plan: On hold at this time due to bowel obstruction and possible need to proceed to the OR. 01/22: Going to OR today
--- NOTE | 2024-01-28 09:20 | PM.IMPN ---
Progress Note: A&P Assessment and Plan (1) Small bowel obstruction: Code(s): K56.609 - Unspecified intestinal obstruction, unspecified as to partial versus complete obstruction Status: Acute Assessment and Plan: NPO except ice chips, NG tube to suction, surgery has evaluated patient uncertain if he will dose to the operating room or not at this time. Surgery started patient on ertapenem once daily IV. 01/22: Patient to go to OR today 01/24/24: Patient is postop day 1 from an ex lap with LOC and bowel resection Continue NPO status start PPN and lipids today Ordered ambulate with assistance Continue incentive spirometer q.2 hours Rocephin discontinued per surgical team IV fluids discontinued per surgical team Denies passing any gas, no bowel sounds on assessment today 01/25/24: Continue with current treatment plan ambulate in room, get of bed to chair today 01/26/2024: NG out Clear liquid diet Up to chair Re-ordered PPN. Anticipate stopping that when he tolerates a regular diet. 01/26: Awaiting return of bowel function Remains on clear liquid diet Dulcolax suppository today per surgery 01/27: Repeat Dulcolax suppository today Still awaiting return of bowel function Abdomen appears more distended today (2) Atrial fibrillation with rapid ventricular response: Code(s): I48.91 - Unspecified atrial fibrillation Status: Acute Assessment and Plan: Generally rate controlled with occasional paroxysms that increase heart rate. Continue telemetry monitoring. P.r.n. IV metoprolol. Oral medications held at this time due to bowel obstruction. No anticoagulation due to possible need for operative intervention. Rhythm is switching frequently from sinus to atrial fibrillation per review of telemetry. 01/22: OR postponed due to RVR last night. Patient moved to IMU and on diltiazem drip at 15 mg/hr converted to normal sinus at 0430 this morning. Cardiology assisted with care and saw patient today clearing him for OR. 01/24/24: Continue to hold Eliquis Continue with diltiazem drip at 15 milligrams/hour while NPO per Cardiology 01/25/24: No change to current treatment plan 01/26/24: Continue with lovenox. Will transition to PO Eliquis if he tolerates his clear liquids today. Will plan to transition off of the diltiazem gtt later this afternoon should he continue to do well with clear liquids. 01/26: No change to current treatment 01/27: No change (3) Type 2 diabetes mellitus: Code(s): E11.9 - Type 2 diabetes mellitus without complications Status: Acute Assessment and Plan: Fingerstick glucose every 6 hours while NPO with sliding scale insulin. 01/24/24: Blood sugar ranging 167-182 Accu-Cheks change to Q 6 hour Low-dose sliding scale insulin ordered Patient being started on PPN and lipids Continue to hold Farxiga and metformin 01/25/24: BG ranging 199-216 Will increase sliding scale insulin to medium dose sliding scale 01/26/24: BG ranging 210-229. Changing to corrective high dose SSI 01/26: Blood sugars still ranging in the 200s. 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 01/22: Going to OR today 01/24/24: Currently Eliquis on hold Surgical team started Lovenox 40 mg daily 01/26/24: Receiving lovenox instead of eliquis given recent NG. 01/26: Continue current treatment (5) Gastroesophageal reflux disease: Code(s): K21.9 - Gastro-esophageal reflux disease without esophagitis Status: Acute Assessment and Plan: IV pantoprazole while NPO 01/24/24: Continue with Protonix (6) Paroxysmal atrial fibrillation: Code(s): I
--- NOTE | 2024-01-28 10:55 | PM.PNCARD ---
Progress Note: A&P Assessment and Plan (1) Paroxysmal atrial flutter: Code(s): I48.92 - Unspecified atrial flutter Status: Acute Assessment and Plan: History of paroxysmal atrial flutter, having problems with atrial flutter RVR off and on since admission. In and out of atrial flutter. Recommend resuming Eliquis 5 mg p.o. b.i.d. when able to take p.o.. Continue IV diltiazem but will reduce it down to 10 milligrams/hour for now. He was starting to eat some clear liquids but I am concerned that he may not have adequate absorption of oral medications quite yet. Since he is back in sinus rhythm though I am going to discontinue his IV metoprolol. Resume anticoagulation when acute situation has resolved and ok per surgery Resume home meds when able to take p.o. (2) Small bowel obstruction: Code(s): K56.609 - Unspecified intestinal obstruction, unspecified as to partial versus complete obstruction Status: Acute Assessment and Plan: Admitted on the with small-bowel obstruction, may need operative management. Followed by Dr. Reed. (3) Hypertension: Code(s): I10 - Essential (primary) hypertension Status: Acute Assessment and Plan: Blood pressure controlled with IV diltiazem (4) Diabetes: Code(s): E11.9 - Type 2 diabetes mellitus without complications Status: Chronic Assessment and Plan: Treatment per hospitalist Subjective Date/time seen: 01/28/24 10:55 Interval history: Cardiology follow up for atrial flutter Date of service 01/24/2024: Feeling well s/p ileal resection yesterday. No abdominal pain. He remains tachycardic on telemetry, current in the 120's - 130's. Denies any palpitations, chest pain, or shortness of breath. Date of service 01/25/2024: Rate is much better controlled today. He feels well and has no cardiovascular complaints. Date of service 01/26/2024: Heart rate is controlled. Still on diltiazem drip. NG just removed today. No chest pain or shortness of breath Date of service 01/27/2024: Heart rate controlled. No chest pain. Does have some abdominal distention still. NG is still out and taking some p.o. Date of service 01/28/2024: Converted to sinus rhythm. Feeling nauseated today. Abdomen is distended. No chest pain Review of Systems Constitutional: Constitutional: Denies fever(s) Eyes: Eyes: Reports as per HPI ENT: Denies epistaxis Cardiovascular: Cardiovascular: Denies chest pain, Denies pedal edema, Denies leg edema, Denies lightheadedness, Denies palpitations and Denies dyspnea Respiratory: Respiratory: Denies chest congestion and Denies dyspnea Gastrointestinal: Gastrointestinal: Reports abdominal pain (Improved), Reports bloating and Denies hematochezia Genitourinary: Genitourinary: Denies hematuria Musculoskeletal: Musculoskeletal: Reports arthralgias Integumentary/Breasts: Skin/Breast: Reports system reviewed and no additional complaints, except as docu Neurologic: Reports system reviewed and no additional complaints, except as documented and Denies behavioral changes Psychiatric: Psychiatric: Denies behavioral changes Endocrine: Endocrine: Denies palpitations Exam Narrative: Appears stated age Const: General: cooperative, healthy appearing, comfortable and no acute distress Orientation/consciousness: patient oriented x3 HENMT: Head: normal to inspection and no cranial bruits Ears: external ears normal Face/Nose/Sinus: Normal external nose present and normal facial exam Face and sinus: normal facial exam Mouth: Yes Normal oral and palatal mucosa present Other: NG tube in place Eyes: General: appearance normal, both eyes and all related structures Sclera: sclerae normal Neck: Neck: normal visual inspection, supple and No JVD Carotids: no bruits Resp: Effort & Inspection: normal respiratory effort and able to speak in complete sentences Auscultation: cl
--- NOTE | 2024-01-28 11:02 | PM.PNGS ---
Progress Note: A&P Assessment and Plan (1) Small bowel obstruction: Code(s): K56.609 - Unspecified intestinal obstruction, unspecified as to partial versus complete obstruction Status: Acute Assessment and Plan: Still awaiting return of bowel function Continue PPN. Will continue clear liquids, although he is only taking in water today due to the nausea. Will give another Dulolax suppository Discussed with the patient that he may need to have an NG tube placed if he starts vomiting PT/OT ordered today, encouraged trying to increase activity as tolerated (2) Postoperative ileus: Code(s): K91.89 - Other postprocedural complications and disorders of digestive system; K56.7 - Ileus, unspecified Status: Acute (3) Atrial fibrillation with rapid ventricular response: Code(s): I48.91 - Unspecified atrial fibrillation Status: Acute Assessment and Plan: Cardizem drip until tolerating PO. Continue per Cardiology. (4) Type 2 diabetes mellitus: Code(s): E11.9 - Type 2 diabetes mellitus without complications Status: Acute Plan I have discussed the patient's case and plan of care with Dr. Juares Subjective Subjective Date/Time Seen: 01/28/24 11:02 Post Op day: 5 (Exploratory laparotomy with adhesiolysis and ileal resection) Patient reports: no new complaints, no flatus, no bowel movement, nausea and afebrile Interval history: Chart reviewed since last seen. Patient still feels distended this morning and reports nausea. His nausea improved after having Zofran. He has only had some water today and not tolerating any other clear liquids due to the nausea. He denies any flatus or BM. He had 1 very small BM 2 days ago, but nothing since. He sat up in the chair for about 4 hours yesterday and did well with this. He is eager to get up and try walking with his walker. Exam Const: General: comfortable and no acute distress Orientation/consciousness: patient oriented x3 GI: Inspection: distended and incision (intact with anthony, no erythema or drainage) GI Palp: Yes Soft to palpation, Yes Tenderness to palpation present (GI) (only some mild incisional tenderness) and No Guarding due to palpation present (GI) Auscultation: High-pitched bowel sounds present (very few hypoactive tinkling sounds) Objective Data Vital Signs Vital Signs: Vital Signs - 24 hr 01/27/24 11:56 01/27/24 11:56 01/27/24 12:00 Temperature 98.1 F Pulse Rate 76 76 80 Respiratory Rate 18 Blood Pressure 130/64 Pulse Oximetry 99 Oxygen Delivery 01/27/24 13:22 01/27/24 12:00 01/27/24 12:00 Temperature Pulse Rate 87 76 Respiratory Rate Blood Pressure Pulse Oximetry 98 Oxygen Delivery Room Air 01/27/24 14:00 01/27/24 14:00 01/27/24 15:58 Temperature 98.6 F Pulse Rate 87 87 88 Respiratory Rate 16 Blood Pressure 120/63 123/64 Pulse Oximetry 98 Oxygen Delivery 01/27/24 16:00 01/27/24 18:03 01/27/24 16:00 Temperature Pulse Rate 88 97 Respiratory Rate Blood Pressure 123/64 Pulse Oximetry 97 Oxygen Delivery Room Air 01/27/24 18:00 01/27/24 20:09 01/27/24 16:00 Temperature 97.1 F L Pulse Rate 86 86 95 Respiratory Rate 18 Blood Pressure 131/67 Pulse Oximetry 99 Oxygen Delivery 01/27/24 18:00 01/27/24 20:00 01/27/24 22:48 Temperature Pulse Rate 95 86 92 Respiratory Rate Blood Pressure 131/67 128/67 Pulse Oximetry Oxygen Delivery 01/27/24 23:18 01/27/24 20:00 01/28/24 00:09 Temperature Pulse Rate 92 90 93 Respiratory Rate Blood Pressure 128/64 Pulse Oximetry Oxygen Delivery 01/28/24 00:15 01/27/24 20:00 01/27/24 22:00 Temperature 97.1 F L Pulse Rate 94 89 Respiratory Rate 18 Blood Pressure 122/70 Pulse Oximetry 97 Oxygen Delivery Room Air 01/28/24 00:15 01/28/24 00:00 01/28/24 00:00 Temperature Pulse Rate 94 95 Respiratory Rate Blood Pressu
[2024-01-28 11:50] LABS: Glucose Point of Care 211 mg/dl (65-105)
[2024-01-28] MEDS: BISACODYL 10 MG SUPPOSITORY RECTAL (12:37)
[2024-01-28] MEDS: FAT EMULSIONS IV 20% 250 ML 20.8 ML IVPB (12:37)
[2024-01-28 19:20] LABS: Glucose Point of Care 231 mg/dl (65-105)
[2024-01-28] MEDS: INSULIN GLARGINE (*BKC) 100 UNITS/ML 10 UNITS SUB-Q (20:27)
[2024-01-28 23:50] LABS: Glucose Point of Care 256 mg/dl (65-105)
[2024-01-28] MEDS: HYDROmorphone HCL INJ (*CRX) 1 MG/ML SYR IV PUSH (23:55)
[2024-01-29] VITALS (23 sets, daily range): BP systolic 121–140; BP diastolic 56–71; PULSE 79–100; RESP 16–20; TEMP 36.1–36.6; O2SAT 97–99
[2024-01-29] MEDS: INSULIN ASPART (*BKC) 100 UNITS/ML SUB-Q ×4 (00:39→23:50)
[2024-01-29 05:14] LABS: Basophils Absolute Auto 0.1 K/mm3 (0.0-0.1); Basophils Percent Auto 0.7 % (0.2-1.2); Eosinophils Absolute Auto 0.1 K/mm3 (0-0.3); Hematocrit 37.1 % (42.0-52.0); Hemoglobin 11.5 g/dL (14.0-18.0); Immature Granulocyte Absolute 0.11 K/mm3 (0.00-0.031); Immature Granulocyte Percent A 1.5 % (0-0.5); Lymphocytes Absolute Auto 0.84 K/mm3 (0.9-3.2); Lymphocytes Percent Auto 11.8 % (18.3-44.2); Mean Corpuscular Hemoglobin 27.1 pg (26-34); Mean Corpuscular Volume 87.3 fl (80-100); Mean Platelet Volume 11.3 fl (7.4-10.4); Monocytes Absolute Auto 1.1 K/mm3 (0.1-0.6); Monocytes Percent Auto 14.9 % (2.6-8.5); Neutrophils Absolute Auto 4.9 K/mm3 (1.3-6.7); Neutrophils Percent Auto 69.1 % (45.5-73.1); Platelet Count Result 203 k/mm3 (150-375); Red Blood Count 4.25 M/mm3 (4.6-6.20); Red Cell Distribution Width 13.7 % (11.5-14.5); White Blood Count 7.1 K/mm3 (4.5-10.0)
[2024-01-29] MEDS: dilTIAZem 100 MG/100 ML 100 MG/100 ML BAG 10 MG IV CONT ×2 (05:15→15:18)
[2024-01-29 05:29] LABS: Glucose Point of Care 207 mg/dl (65-105)
[2024-01-29 05:34] LABS: Alanine Aminotransferase 597 U/L (6-50); Albumin Level 3.1 g/dL (3.5-5.1); Alkaline Phosphatase 215 U/L (38-126); Anion Gap 5 mmol/L (8-16); Aspartate Amino Transferase 248 U/L (17-59); Bilirubin,Total 0.5 mg/dL (0.2-1.3); Blood Urea Nitrogen 25 mg/dL (9-20); Calcium 8.9 mg/dL (8.4-10.2); Carbon Dioxide 23 mmol/L (22-30); Chloride 101 mmol/L (98-107); Estimated CRCL calculation 82 ml/min; Estimated Glomerular Filt Rate > 60; Glucose 217 mg/dL (65-110); Magnesium 1.9 mg/dL (1.6-2.3); Phosphorus 3.6 mg/dL (2.5-4.5); Potassium 4.6 mmol/L (3.4-5.0); Sodium 129 mmol/L (137-145)
[2024-01-29] MEDS: PANTOPRAZOLE SODIUM IV 40 MG VIAL IV PUSH (09:58)
[2024-01-29] MEDS: ENOXAPARIN 40 MG/0.4 ML SYRINGE SUB-Q (09:58)
--- NOTE | 2024-01-29 10:05 | P.PNIM_ITS ---
Progress Note: A&P Assessment and Plan (1) Small bowel obstruction: Code(s): K56.609 - Unspecified intestinal obstruction, unspecified as to partial versus complete obstruction Status: Acute Assessment and Plan: NPO except ice chips, NG tube to suction, surgery has evaluated patient uncertain if he will dose to the operating room or not at this time. Surgery started patient on ertapenem once daily IV. 01/22: Patient to go to OR today 01/24/24: * Patient is postop day 1 from an ex lap with LOC and bowel resection * Continue NPO status * start PPN and lipids today * Ordered ambulate with assistance * Continue incentive spirometer q.2 hours * Rocephin discontinued per surgical team * IV fluids discontinued per surgical team * Denies passing any gas, no bowel sounds on assessment today 01/25/24: * Continue with current treatment plan * ambulate in room, get of bed to chair today 01/26/2024: * NG out * Clear liquid diet * Up to chair * Re-ordered PPN. Anticipate stopping that when he tolerates a regular diet. 01/26: * Awaiting return of bowel function * Remains on clear liquid diet * Dulcolax suppository today per surgery 01/27: * Repeat Dulcolax suppository today * Still awaiting return of bowel function * Abdomen appears more distended today 01/28: * NG tube replaced last night with 1 L bilious output * Bowel rest * Continue PPN (2) Atrial fibrillation with rapid ventricular response: Code(s): I48.91 - Unspecified atrial fibrillation Status: Acute Assessment and Plan: Generally rate controlled with occasional paroxysms that increase heart rate. Continue telemetry monitoring. P.r.n. IV metoprolol. Oral medications held at this time due to bowel obstruction. No anticoagulation due to possible need for operative intervention. Rhythm is switching frequently from sinus to atrial fibrillation per review of telemetry. 01/22: OR postponed due to RVR last night. Patient moved to IMU and on diltiazem drip at 15 mg/hr converted to normal sinus at 0430 this morning. Cardiology assisted with care and saw patient today clearing him for OR. 01/24/24: * Continue to hold Eliquis * Continue with diltiazem drip at 15 milligrams/hour while NPO per Cardiology 01/25/24: * No change to current treatment plan 01/26/24: * Continue with lovenox. Will transition to PO Eliquis if he tolerates his clear liquids today. Will plan to transition off of the diltiazem gtt later this afternoon should he continue to do well with clear liquids. 01/26: * No change to current treatment 01/27: * No change 01/28: * No change (3) Type 2 diabetes mellitus: Code(s): E11.9 - Type 2 diabetes mellitus without complications Status: Acute Assessment and Plan: Fingerstick glucose every 6 hours while NPO with sliding scale insulin. 01/24/24: * Blood sugar ranging 167-182 * Accu-Cheks change to Q 6 hour * Low-dose sliding scale insulin ordered * Patient being started on PPN and lipids * Continue to hold Farxiga and metformin 01/25/24: * BG ranging 199-216 * Will increase sliding scale insulin to medium dose sliding scale 01/26/24: * BG ranging 210-229. * Changing to corrective high dose SSI 01/26: * Blood sugars still ranging in the 200s. * Will start on low-dose Lantus 6 units 01/27: * Increase Lantus to 10 units 01/28: * Point of care blood sugar 207 this morning (4) Chronic anticoagulation: Code(s): Z79.01 - residential (current) use of an
--- NOTE | 2024-01-29 10:05 | PM.IMPN ---
Progress Note: A&P Assessment and Plan (1) Small bowel obstruction: Code(s): K56.609 - Unspecified intestinal obstruction, unspecified as to partial versus complete obstruction Status: Acute Assessment and Plan: NPO except ice chips, NG tube to suction, surgery has evaluated patient uncertain if he will dose to the operating room or not at this time. Surgery started patient on ertapenem once daily IV. 01/22: Patient to go to OR today 01/24/24: Patient is postop day 1 from an ex lap with LOC and bowel resection Continue NPO status start PPN and lipids today Ordered ambulate with assistance Continue incentive spirometer q.2 hours Rocephin discontinued per surgical team IV fluids discontinued per surgical team Denies passing any gas, no bowel sounds on assessment today 01/25/24: Continue with current treatment plan ambulate in room, get of bed to chair today 01/26/2024: NG out Clear liquid diet Up to chair Re-ordered PPN. Anticipate stopping that when he tolerates a regular diet. 01/26: Awaiting return of bowel function Remains on clear liquid diet Dulcolax suppository today per surgery 01/27: Repeat Dulcolax suppository today Still awaiting return of bowel function Abdomen appears more distended today 01/28: NG tube replaced last night with 1 L bilious output Bowel rest Continue PPN (2) Atrial fibrillation with rapid ventricular response: Code(s): I48.91 - Unspecified atrial fibrillation Status: Acute Assessment and Plan: Generally rate controlled with occasional paroxysms that increase heart rate. Continue telemetry monitoring. P.r.n. IV metoprolol. Oral medications held at this time due to bowel obstruction. No anticoagulation due to possible need for operative intervention. Rhythm is switching frequently from sinus to atrial fibrillation per review of telemetry. 01/22: OR postponed due to RVR last night. Patient moved to IMU and on diltiazem drip at 15 mg/hr converted to normal sinus at 0430 this morning. Cardiology assisted with care and saw patient today clearing him for OR. 01/24/24: Continue to hold Eliquis Continue with diltiazem drip at 15 milligrams/hour while NPO per Cardiology 01/25/24: No change to current treatment plan 01/26/24: Continue with lovenox. Will transition to PO Eliquis if he tolerates his clear liquids today. Will plan to transition off of the diltiazem gtt later this afternoon should he continue to do well with clear liquids. 01/26: No change to current treatment 01/27: No change 01/28: No change (3) Type 2 diabetes mellitus: Code(s): E11.9 - Type 2 diabetes mellitus without complications Status: Acute Assessment and Plan: Fingerstick glucose every 6 hours while NPO with sliding scale insulin. 01/24/24: Blood sugar ranging 167-182 Accu-Cheks change to Q 6 hour Low-dose sliding scale insulin ordered Patient being started on PPN and lipids Continue to hold Farxiga and metformin 01/25/24: BG ranging 199-216 Will increase sliding scale insulin to medium dose sliding scale 01/26/24: BG ranging 210-229. Changing to corrective high dose SSI 01/26: Blood sugars still ranging in the 200s. Will start on low-dose Lantus 6 units 01/27: Increase Lantus to 10 units 01/28: Point of care blood sugar 207 this morning (4) Chronic anticoagulation: Code(s): Z79.01 - bonding agent (current) use of anticoagulants Status: Acute Assessment and Plan: On hold at this time due to bowel obstruction and possible need to proceed to the OR. 01/22: Going to OR today 01/24/24: Currently Eliquis on hold Surgical team started Lovenox 40 mg daily 01/26/24: Receiving lovenox instead of Eliquis given recent NG. 01/26: Continue current treatment 01/28: Continue with Lovenox (5) Gastroesophageal reflux disease: Code(s): K21.9 - Gastro-esophageal reflux dis
--- NOTE | 2024-01-29 11:05 | PM.PNGS ---
Progress Note: A&P Assessment and Plan (1) Postoperative ileus: Code(s): K91.89 - Other postprocedural complications and disorders of digestive system; K56.7 - Ileus, unspecified Status: Acute Assessment and Plan: Nausea and distention became worse overnight and NG tube was placed. Still awaiting return of bowel function. Continue NG tube decompression, bowel rest, PPN (2) Small bowel obstruction: Code(s): K56.609 - Unspecified intestinal obstruction, unspecified as to partial versus complete obstruction Status: Acute Assessment and Plan: Still awaiting return of bowel function Continue PPN, NG tube decompression, and bowel rest PT/OT ordered, encouraged trying to increase activity as tolerated (3) Atrial fibrillation with rapid ventricular response: Code(s): I48.91 - Unspecified atrial fibrillation Status: Acute Assessment and Plan: Cardizem drip until tolerating PO. Continue per Cardiology. (4) Type 2 diabetes mellitus: Code(s): E11.9 - Type 2 diabetes mellitus without complications Status: Acute Plan I have discussed the patient's case and plan of care with Dr. Juares Subjective Subjective Date/Time Seen: 01/29/24 09:05 Post Op day: 6 (Exploratory laparotomy with adhesiolysis and ileal resection) Patient reports: voiding w/o difficulty, no flatus, no bowel movement and afebrile Interval history: Patient seen today. He had more nausea and bloating overnight and subsequently had an NG tube placed early this morning. He had over 2 liters out of the NG tube after placement. He reports feeling much better today after the NG tube was placed. His bloating and distention is much better. Still no flatus or BM. Exam Const: General: comfortable and no acute distress GI: Inspection: incision (intact with anthony, no erythema or drainage) and other (less distended today after NG placed) GI Palp: Yes Soft to palpation, Yes Tenderness to palpation present (GI) (some mild incisional and LLQ and RLQ tenderness), No Guarding due to palpation present (GI) and No Rebound tenderness present Auscultation: Hypoactive bowel sounds present Extrem: General: no calf tenderness and no edema Objective Data Vital Signs Vital Signs: Vital Signs - 24 hr 01/28/24 12:00 01/28/24 12:00 01/28/24 14:00 Temperature Pulse Rate 87 79 Respiratory Rate Blood Pressure Pulse Oximetry Oxygen Delivery Room Air 01/28/24 15:36 01/28/24 16:00 01/28/24 16:00 Temperature 98.5 F Pulse Rate 87 88 Respiratory Rate 14 Blood Pressure 128/70 Pulse Oximetry 99 Oxygen Delivery Room Air 01/28/24 18:00 01/28/24 19:30 01/28/24 19:30 Temperature Pulse Rate 88 88 88 Respiratory Rate Blood Pressure Pulse Oximetry Oxygen Delivery 01/28/24 20:32 01/28/24 20:00 01/28/24 20:00 Temperature 97.3 F L Pulse Rate 90 98 Respiratory Rate 18 Blood Pressure 137/68 Pulse Oximetry 97 Oxygen Delivery Room Air 01/28/24 22:00 01/28/24 20:00 01/28/24 22:00 Temperature Pulse Rate 98 98 88 Respiratory Rate Blood Pressure Pulse Oximetry Oxygen Delivery 01/29/24 00:34 01/29/24 00:00 01/29/24 00:00 Temperature 97 F L Pulse Rate 90 83 83 Respiratory Rate 20 Blood Pressure 134/71 Pulse Oximetry 97 Oxygen Delivery 01/29/24 00:00 01/29/24 02:00 01/29/24 02:00 Temperature Pulse Rate 90 90 Respiratory Rate Blood Pressure Pulse Oximetry Oxygen Delivery Room Air 01/29/24 04:00 01/29/24 04:00 01/29/24 05:15 Temperature Pulse Rate 90 84 Respiratory Rate Blood Pressure Pulse Oximetry Oxygen Delivery Room Air 01/29/24 05:15 01/29/24 04:00 01/29/24 06:00 Temperature 97.8 F Pulse Rate 84 87 94 Respiratory Rate 18 Blood Pressure 126/65 Pulse Oximetry 97 Oxygen Delivery 01/29/24 08:44 01/29/24 08:00 Temperature 97.3 F L Pulse Rate 91 82
--- NOTE | 2024-01-29 11:23 | PCNFU ---
Nutrition Follow-Up Complete: Altered GI function related to obstruction as evidenced by diagnosis of small bowel obstruction with need for PPN for alternative nutrition support. Goal: estimated needs - at least 60% energy needs Pt current nutrition is PPN Clinimix E 4.25/5 at 100mL/hr with 250mL 20% lipids. Nutrition recommendation: Continue with PPN. Will monitor weight status. If diet unable to be advanced by follow-up, consider TPN to help to meet estimated energy needs. RD available for recommendations. Last recorded weight is 76.8 kg. Weight is up 9 lbs/6% since admission (x 8 days). Bowel Motility: abdomen is distended with hypoactive bowel sounds. BM- 01/24. NG placed this morning with over 2L out. Abdomen less distended after NG placement. Labs Reviewed: Na 129, glucose 217 Meds Noted: Lovenox, Novolog, Lantus, Zofran, Protonix Skin: medial abdomen incision Additional Notes: Post Op day: 6 Exploratory laparotomy with adhesiolysis and ileal resection. Clinimix E 4.25/5 at 100mL/hr providing 1316 kcal (meeting 65% of estimated energy needs), 102g protein (meeting 100% of estimated protein needs), 2650 mL total volume. Plan is for PT/OT to see patient and PPN to be continued with NG tube for decompression and bowel rest. Patient reports nausea and was given Zofran which is helping. He states his medical team is waiting on the return of bowel function. Patient reports no appetite. He wishes to have sugar-free liquids sent when he is able to have clear liquids again. Concerned with elevated blood sugars but insulin has been ordered to help with coverage. Monitor PPN rate, labs, wt. Follow up every Sunday and Sunday per protocol
[2024-01-29 12:00] LABS: Triglycerides 77 mg/dL (<150)
[2024-01-29 12:31] LABS: Glucose Point of Care 207 mg/dl (65-105)
[2024-01-29] MEDS: AMINO ACIDS 4.25%/D5W/LYTES/CA 2,000 ML 100 ML IV CONT (12:39)
[2024-01-29] MEDS: FAT EMULSIONS IV 20% 250 ML 20.8 ML IVPB (12:42)
[2024-01-29 19:10] LABS: Glucose Point of Care 184 mg/dl (65-105)
[2024-01-29] MEDS: INSULIN GLARGINE (*BKC) 100 UNITS/ML 10 UNITS SUB-Q (20:31)
[2024-01-29 21:44] LABS: Glucose Point of Care 192 mg/dl (65-105)
[2024-01-30] VITALS (21 sets, daily range): BP systolic 118–133; BP diastolic 50–58; PULSE 78–99; RESP 14–24; TEMP 36.3–36.9; O2SAT 98–99
[2024-01-30 01:07] LABS: Glucose Point of Care 233 mg/dl (65-105)
[2024-01-30] MEDS: dilTIAZem 100 MG/100 ML 100 MG/100 ML BAG 10 MG IV CONT ×3 (02:00→23:03)
[2024-01-30 04:39] LABS: Basophils Percent Auto 0.6 % (0.2-1.2); Eosinophils Absolute Auto 0.1 K/mm3 (0-0.3); Eosinophils Percent Auto 1.5 % (0-4.4); Hemoglobin 11.2 g/dL (14.0-18.0); Immature Granulocyte Absolute 0.07 K/mm3 (0.00-0.031); Lymphocytes Percent Auto 10.3 % (18.3-44.2); Mean Corpuscular HGB Conc 31.1 g/dl (32-36); Mean Corpuscular Volume 86.7 fl (80-100); Mean Platelet Volume 10.9 fl (7.4-10.4); Monocytes Percent Auto 15.1 % (2.6-8.5); Neutrophils Absolute Auto 4.8 K/mm3 (1.3-6.7); Neutrophils Percent Auto 71.5 % (45.5-73.1); Platelet Count Result 189 k/mm3 (150-375); Red Blood Count 4.15 M/mm3 (4.6-6.20); Red Cell Distribution Width 13.9 % (11.5-14.5); White Blood Count 6.8 K/mm3 (4.5-10.0)
[2024-01-30 04:53] LABS: Alanine Aminotransferase 332 U/L (6-50); Albumin Level 3.1 g/dL (3.5-5.1); Alkaline Phosphatase 165 U/L (38-126); Anion Gap 4 mmol/L (4-12); Aspartate Amino Transferase 43 U/L (17-59); Bilirubin,Total 0.5 mg/dL (0.2-1.3); Blood Urea Nitrogen 20 mg/dL (9-20); Calcium 9.2 mg/dL (8.4-10.2); Carbon Dioxide 28 mmol/L (22-30); Chloride 101 mmol/L (98-107); Estimated CRCL calculation 79 ml/min; Estimated Glomerular Filt Rate > 60; Glucose 190 mg/dL (65-110); Magnesium 1.8 mg/dL (1.6-2.3); Phosphorus 3.2 mg/dL (2.5-4.5); Potassium 4.4 mmol/L (3.4-5.0); Sodium 133 mmol/L (137-145)
[2024-01-30] MEDS: INSULIN ASPART (*BKC) 100 UNITS/ML SUB-Q ×2 (06:43→18:47)
[2024-01-30 06:51] LABS: Glucose Point of Care 207 mg/dl (65-105)
[2024-01-30] MEDS: AMINO ACIDS 4.25%/D5W/LYTES/CA 2,000 ML 100 ML IV CONT (07:50)
[2024-01-30] MEDS: PANTOPRAZOLE SODIUM IV 40 MG VIAL IV PUSH (10:31)
[2024-01-30] MEDS: ENOXAPARIN 40 MG/0.4 ML SYRINGE SUB-Q (10:31)
[2024-01-30] MEDS: METOCLOPRAMIDE HCL INJ 10 MG/2 ML VIAL IV PUSH ×3 (10:31→18:48)
--- NOTE | 2024-01-30 11:09 | PM.PNGS ---
Progress Note: A&P Assessment and Plan (1) Postoperative ileus: Code(s): K91.89 - Other postprocedural complications and disorders of digestive system; K56.7 - Ileus, unspecified Status: Acute Assessment and Plan: Still awaiting return of bowel function. Will start IV Reglan. Continue NG tube decompression, bowel rest, PPN (2) Small bowel obstruction: Code(s): K56.609 - Unspecified intestinal obstruction, unspecified as to partial versus complete obstruction Status: Acute Assessment and Plan: Still awaiting return of bowel function Continue PPN, NG tube decompression, and bowel rest PT/OT following, increase activity as tolerated (3) Atrial fibrillation with rapid ventricular response: Code(s): I48.91 - Unspecified atrial fibrillation Status: Acute Assessment and Plan: Cardizem drip until tolerating PO. Continue per Cardiology. (4) Type 2 diabetes mellitus: Code(s): E11.9 - Type 2 diabetes mellitus without complications Status: Acute Plan I have discussed the patient's case and plan of care with Dr. Juares Subjective Subjective Date/Time Seen: 01/30/24 11:09 Post Op day: 7 (Exploratory laparotomy with adhesiolysis and ileal resection) Patient reports: no new complaints, feels better, no flatus, no bowel movement and afebrile Interval history: Patient reports feeling better again today. He feels his bloating has improved some more today. 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 Still no flatus or BM. He walked in the halls yesterday and once this morning already. No other complaints at this time. Exam Const: General: comfortable and no acute distress GI: Inspection: incision (intact with anthony, no erythema or drainage) and other (less distended) GI Palp: Yes Soft to palpation, Yes Tenderness to palpation present (GI) (incisional) and No Guarding due to palpation present (GI) Auscultation: Hypoactive bowel sounds present Extrem: General: no calf tenderness and no edema Objective Data Vital Signs Vital Signs: Vital Signs - 24 hr 01/29/24 12:00 01/29/24 12:00 01/29/24 12:00 Temperature 97.2 F L Pulse Rate 89 98 Respiratory Rate 16 Blood Pressure 126/56 L Pulse Oximetry 98 Oxygen Delivery Room Air 01/29/24 13:48 01/29/24 14:00 01/29/24 15:15 Temperature Pulse Rate 88 91 Respiratory Rate Blood Pressure Pulse Oximetry Oxygen Delivery Room Air 01/29/24 15:18 01/29/24 12:25 01/29/24 16:22 Temperature 97.3 F L Pulse Rate 89 79 82 Respiratory Rate 16 Blood Pressure 121/56 L Pulse Oximetry 99 Oxygen Delivery 01/29/24 16:00 01/29/24 18:00 01/29/24 16:00 Temperature Pulse Rate 81 97 Respiratory Rate Blood Pressure Pulse Oximetry Oxygen Delivery Room Air 01/29/24 19:09 01/29/24 20:00 01/29/24 23:46 Temperature 97.3 F L 97.9 F Pulse Rate 100 94 Respiratory Rate 18 20 Blood Pressure 140/64 129/58 L Pulse Oximetry 97 99 Oxygen Delivery Room Air 01/29/24 20:00 01/29/24 22:00 01/30/24 00:00 Temperature Pulse Rate 91 90 Respiratory Rate Blood Pressure Pulse Oximetry Oxygen Delivery Room Air 01/29/24 20:00 01/29/24 22:00 01/30/24 00:00 Temperature Pulse Rate 91 90 85 Respiratory Rate Blood Pressure Pulse Oximetry Oxygen Delivery 01/30/24 00:00 01/30/24 00:00 01/30/24 01:18 Temperature 97.9 F Pulse Rate 85 94 92 Respiratory Rate 20 Blood Pressure 129/58 L Pulse Oximetry 99 Oxygen Delivery 01/30/24 02:00 01/30/24 02:00 01/30/24 04:12 Temperature 97.4 F L Pulse Rate 92 82 85 Respiratory Rate 24 H Blood Pressure 125/56 L Pulse Oximetry 99 Oxygen Delivery 01/30/24 04:00 01/30/24 04:00 01/30/24 06:00 Temperature Pulse Rate 79 92 Respiratory Rate Blood Pressure Pulse Oximetry Oxygen Delivery Room Air 01/30/24 04:00 01/30/24 06:0
[2024-01-30 11:39] LABS: Glucose Point of Care 157 mg/dl (65-105)
--- NOTE | 2024-01-30 11:49 | PM.PNCARD ---
Progress Note: A&P Assessment and Plan (1) Paroxysmal atrial flutter: Code(s): I48.92 - Unspecified atrial flutter Status: Acute Assessment and Plan: History of paroxysmal atrial flutter, having problems with atrial flutter RVR off and on since admission. In and out of atrial flutter. Recommend resuming Eliquis 5 mg p.o. b.i.d. when able to take p.o.. Continue IV diltiazem. Resume full anticoagulation when acute situation has resolved and ok per surgery Resume home meds when able to take p.o. (2) Small bowel obstruction: Code(s): K56.609 - Unspecified intestinal obstruction, unspecified as to partial versus complete obstruction Status: Acute Assessment and Plan: Admitted on the with small-bowel obstruction, may need operative management. Followed by Dr. Reed. (3) Hypertension: Code(s): I10 - Essential (primary) hypertension Status: Acute Assessment and Plan: Blood pressure controlled with IV diltiazem (4) Diabetes: Code(s): E11.9 - Type 2 diabetes mellitus without complications Status: Chronic Assessment and Plan: Treatment per hospitalist Subjective Date/time seen: 01/30/24 11:49 Interval history: Cardiology follow up for atrial flutter Date of service 01/24/2024: Feeling well s/p ileal resection yesterday. No abdominal pain. He remains tachycardic on telemetry, current in the 120's - 130's. Denies any palpitations, chest pain, or shortness of breath. Date of service 01/25/2024: Rate is much better controlled today. He feels well and has no cardiovascular complaints. Date of service 01/26/2024: Heart rate is controlled. Still on diltiazem drip. NG just removed today. No chest pain or shortness of breath Date of service 01/27/2024: Heart rate controlled. No chest pain. Does have some abdominal distention still. NG is still out and taking some p.o. Date of service 01/28/2024: Converted to sinus rhythm. Feeling nauseated today. Abdomen is distended. No chest pain Date of service 01/30/2024: Remains in sinus rhythm. NG back in place. No chest pain, shortness of breath Review of Systems Constitutional: Constitutional: Denies fever(s) Eyes: Eyes: Reports as per HPI ENT: Denies epistaxis Cardiovascular: Cardiovascular: Denies chest pain, Denies pedal edema, Denies leg edema, Denies lightheadedness, Denies palpitations and Denies dyspnea Respiratory: Respiratory: Denies chest congestion and Denies dyspnea Gastrointestinal: Gastrointestinal: Reports abdominal pain (Improved), Reports bloating and Denies hematochezia Genitourinary: Genitourinary: Denies hematuria Musculoskeletal: Musculoskeletal: Reports arthralgias Integumentary/Breasts: Skin/Breast: Reports system reviewed and no additional complaints, except as docu Neurologic: Reports system reviewed and no additional complaints, except as documented and Denies behavioral changes Psychiatric: Psychiatric: Denies behavioral changes Endocrine: Endocrine: Denies palpitations Exam Narrative: Appears stated age Const: General: cooperative, healthy appearing, comfortable and no acute distress Orientation/consciousness: patient oriented x3 HENMT: Head: normal to inspection and no cranial bruits Ears: external ears normal Face/Nose/Sinus: Normal external nose present and normal facial exam Face and sinus: normal facial exam Mouth: Yes Normal oral and palatal mucosa present Other: NG tube in place Eyes: General: appearance normal, both eyes and all related structures Sclera: sclerae normal Neck: Neck: normal visual inspection, supple and No JVD Thyroid: thyroid normal Carotids: no bruits Resp: Effort & Inspection: normal respiratory effort, able to speak in complete sentences and no audible wheezes Auscultation: clear to auscultation bilaterally Cardio: Jugular venous distension: no JVD Rate: regular rate Rhythm: regular
--- NOTE | 2024-01-30 13:09 | P.PNIM_ITS ---
Progress Note: A&P Assessment and Plan (1) Small bowel obstruction: Code(s): K56.609 - Unspecified intestinal obstruction, unspecified as to partial versus complete obstruction Status: Acute Assessment and Plan: NPO except ice chips, NG tube to suction, surgery has evaluated patient uncertain if he will dose to the operating room or not at this time. Surgery started patient on ertapenem once daily IV. 01/22: Patient to go to OR today 01/24/24: * Patient is postop day 1 from an ex lap with LOC and bowel resection * Continue NPO status * start PPN and lipids today * Ordered ambulate with assistance * Continue incentive spirometer q.2 hours * Rocephin discontinued per surgical team * IV fluids discontinued per surgical team * Denies passing any gas, no bowel sounds on assessment today 01/25/24: * Continue with current treatment plan * ambulate in room, get of bed to chair today 01/26/2024: * NG out * Clear liquid diet * Up to chair * Re-ordered PPN. Anticipate stopping that when he tolerates a regular diet. 01/26: * Awaiting return of bowel function * Remains on clear liquid diet * Dulcolax suppository today per surgery 01/27: * Repeat Dulcolax suppository today * Still awaiting return of bowel function * Abdomen appears more distended today 01/28: * NG tube replaced last night with 1 L bilious output * Bowel rest * Continue PPN 01/29: NG tube remains in place, continue PPN, continue IV Cardizem. (2) Atrial fibrillation with rapid ventricular response: Code(s): I48.91 - Unspecified atrial fibrillation Status: Acute Assessment and Plan: Generally rate controlled with occasional paroxysms that increase heart rate. Continue telemetry monitoring. P.r.n. IV metoprolol. Oral medications held at this time due to bowel obstruction. No anticoagulation due to possible need for operative intervention. Rhythm is switching frequently from sinus to atrial fibrillation per review of telemetry. 01/22: OR postponed due to RVR last night. Patient moved to IMU and on diltiazem drip at 15 mg/hr converted to normal sinus at 0430 this morning. Cardiology assisted with care and saw patient today clearing him for OR. 01/24/24: * Continue to hold Eliquis * Continue with diltiazem drip at 15 milligrams/hour while NPO per Cardiology 01/25/24: * No change to current treatment plan 01/26/24: * Continue with lovenox. Will transition to PO Eliquis if he tolerates his clear liquids today. Will plan to transition off of the diltiazem gtt later this afternoon should he continue to do well with clear liquids. 01/26: * No change to current treatment 01/27: * No change 01/28: * No change 01/29: IV Cardizem 10 milligrams/hour (3) Type 2 diabetes mellitus: Code(s): E11.9 - Type 2 diabetes mellitus without complications Status: Acute Assessment and Plan: Fingerstick glucose every 6 hours while NPO with sliding scale insulin. 01/24/24: * Blood sugar ranging 167-182 * Accu-Cheks change to Q 6 hour * Low-dose sliding scale insulin ordered * Patient being started on PPN and lipids * Continue to hold Farxiga and metformin 01/25/24: * BG ranging 199-216 * Will increase sliding scale insulin to medium dose sliding scale 01/26/24: * BG ranging 210-229. * Changing to corrective high dose SSI 01/26: * Blood sugars still ranging in the 200s. * Will start on low-dose Lantus 6 units 01/27: * Increase Lantus to 10 units 01/28: * Point of care blood suga
--- NOTE | 2024-01-30 13:09 | PM.IMPN ---
Progress Note: A&P Assessment and Plan (1) Small bowel obstruction: Code(s): K56.609 - Unspecified intestinal obstruction, unspecified as to partial versus complete obstruction Status: Acute Assessment and Plan: NPO except ice chips, NG tube to suction, surgery has evaluated patient uncertain if he will dose to the operating room or not at this time. Surgery started patient on ertapenem once daily IV. 01/22: Patient to go to OR today 01/24/24: Patient is postop day 1 from an ex lap with LOC and bowel resection Continue NPO status start PPN and lipids today Ordered ambulate with assistance Continue incentive spirometer q.2 hours Rocephin discontinued per surgical team IV fluids discontinued per surgical team Denies passing any gas, no bowel sounds on assessment today 01/25/24: Continue with current treatment plan ambulate in room, get of bed to chair today 01/26/2024: NG out Clear liquid diet Up to chair Re-ordered PPN. Anticipate stopping that when he tolerates a regular diet. 01/26: Awaiting return of bowel function Remains on clear liquid diet Dulcolax suppository today per surgery 01/27: Repeat Dulcolax suppository today Still awaiting return of bowel function Abdomen appears more distended today 01/28: NG tube replaced last night with 1 L bilious output Bowel rest Continue PPN 01/29: NG tube remains in place, continue PPN, continue IV Cardizem. (2) Atrial fibrillation with rapid ventricular response: Code(s): I48.91 - Unspecified atrial fibrillation Status: Acute Assessment and Plan: Generally rate controlled with occasional paroxysms that increase heart rate. Continue telemetry monitoring. P.r.n. IV metoprolol. Oral medications held at this time due to bowel obstruction. No anticoagulation due to possible need for operative intervention. Rhythm is switching frequently from sinus to atrial fibrillation per review of telemetry. 01/22: OR postponed due to RVR last night. Patient moved to IMU and on diltiazem drip at 15 mg/hr converted to normal sinus at 0430 this morning. Cardiology assisted with care and saw patient today clearing him for OR. 01/24/24: Continue to hold Eliquis Continue with diltiazem drip at 15 milligrams/hour while NPO per Cardiology 01/25/24: No change to current treatment plan 01/26/24: Continue with lovenox. Will transition to PO Eliquis if he tolerates his clear liquids today. Will plan to transition off of the diltiazem gtt later this afternoon should he continue to do well with clear liquids. 01/26: No change to current treatment 01/27: No change 01/28: No change 01/29: IV Cardizem 10 milligrams/hour (3) Type 2 diabetes mellitus: Code(s): E11.9 - Type 2 diabetes mellitus without complications Status: Acute Assessment and Plan: Fingerstick glucose every 6 hours while NPO with sliding scale insulin. 01/24/24: Blood sugar ranging 167-182 Accu-Cheks change to Q 6 hour Low-dose sliding scale insulin ordered Patient being started on PPN and lipids Continue to hold Farxiga and metformin 01/25/24: BG ranging 199-216 Will increase sliding scale insulin to medium dose sliding scale 01/26/24: BG ranging 210-229. Changing to corrective high dose SSI 01/26: Blood sugars still ranging in the 200s. Will start on low-dose Lantus 6 units 01/27: Increase Lantus to 10 units 01/28: Point of care blood sugar 207 this morning (4) Chronic anticoagulation: Code(s): Z79.01 - custodial (current) use of anticoagulants Status: Acute Assessment and Plan: On hold at this time due to bowel obstruction and possible need to proceed to the OR. 01/22: Going to OR today 01/24/24: Currently Eliquis on hold Surgical team started Lovenox 40 mg daily 01/26/24: Receiving lovenox instead of Eliquis given recent NG. 01/26: Continue current treatment 01/28: Sarita
[2024-01-30] MEDS: FAT EMULSIONS IV 20% 250 ML 20.8 ML IVPB (13:22)
[2024-01-30 18:15] LABS: Glucose Point of Care 207 mg/dl (65-105)
[2024-01-30] MEDS: ENOXAPARIN 80 MG/0.8 ML SYRINGE 75 MG SUB-Q (20:57)
[2024-01-30] MEDS: INSULIN GLARGINE (*BKC) 100 UNITS/ML 10 UNITS SUB-Q (20:59)
[2024-01-31] VITALS (24 sets, daily range): BP systolic 115–135; BP diastolic 51–59; PULSE 74–107; RESP 16–18; TEMP 36.2–37; O2SAT 95–100
[2024-01-31 00:36] LABS: Glucose Point of Care 152 mg/dl (65-105)
[2024-01-31] MEDS: METOCLOPRAMIDE HCL INJ 10 MG/2 ML VIAL IV PUSH ×5 (00:49→23:51)
[2024-01-31 04:43] LABS: Glucose Point of Care 198 mg/dl (65-105)
[2024-01-31 04:57] LABS: Basophils Percent Auto 0.4 % (0.2-1.2); Eosinophils Absolute Auto 0.1 K/mm3 (0-0.3); Hematocrit 35.9 % (42.0-52.0); Immature Granulocyte Absolute 0.07 K/mm3 (0.00-0.031); Lymphocytes Absolute Auto 1.05 K/mm3 (0.9-3.2); Lymphocytes Percent Auto 14.6 % (18.3-44.2); Mean Corpuscular HGB Conc 30.6 g/dl (32-36); Mean Platelet Volume 10.2 fl (7.4-10.4); Monocytes Absolute Auto 1.1 K/mm3 (0.1-0.6); Monocytes Percent Auto 15.5 % (2.6-8.5); Neutrophils Absolute Auto 4.9 K/mm3 (1.3-6.7); Neutrophils Percent Auto 67.5 % (45.5-73.1); Platelet Count Result 201 k/mm3 (150-375); Red Blood Count 4.08 M/mm3 (4.6-6.20); Red Cell Distribution Width 13.5 % (11.5-14.5); White Blood Count 7.2 K/mm3 (4.5-10.0)
[2024-01-31 05:12] LABS: Alanine Aminotransferase 226 U/L (6-50); Albumin Level 3.2 g/dL (3.5-5.1); Alkaline Phosphatase 146 U/L (38-126); Anion Gap 2 mmol/L (4-12); Aspartate Amino Transferase 23 U/L (17-59); Bilirubin,Total 0.5 mg/dL (0.2-1.3); Blood Urea Nitrogen 18 mg/dL (9-20); Calcium 9.5 mg/dL (8.4-10.2); Carbon Dioxide 30 mmol/L (22-30); Chloride 101 mmol/L (98-107); Estimated CRCL calculation 79 ml/min; Estimated Glomerular Filt Rate > 60; Glucose 201 mg/dL (65-110); Magnesium 1.8 mg/dL (1.6-2.3); Phosphorus 3.3 mg/dL (2.5-4.5); Potassium 4.4 mmol/L (3.4-5.0); Sodium 133 mmol/L (137-145)
[2024-01-31] MEDS: ENOXAPARIN 80 MG/0.8 ML SYRINGE 75 MG SUB-Q ×2 (08:32→20:20)
[2024-01-31] MEDS: PANTOPRAZOLE SODIUM IV 40 MG VIAL IV PUSH (08:32)
[2024-01-31] MEDS: AMINO ACIDS 4.25%/D5W/LYTES/CA 2,000 ML 100 ML IV CONT (08:33)
[2024-01-31] MEDS: dilTIAZem 100 MG/100 ML 100 MG/100 ML BAG 10 MG IV CONT ×2 (10:09→19:25)
--- NOTE | 2024-01-31 11:09 | PM.PNGS ---
Progress Note: A&P Assessment and Plan (1) Postoperative ileus: Code(s): K91.89 - Other postprocedural complications and disorders of digestive system; K56.7 - Ileus, unspecified Status: Acute Assessment and Plan: Bowel function returning. Will clamp NG tube and try clear liquids. Will give one dose of milk of mag Continue Reglan Continue PPN until tolerating a substantial diet (2) Small bowel obstruction: Code(s): K56.609 - Unspecified intestinal obstruction, unspecified as to partial versus complete obstruction Status: Acute Assessment and Plan: Bowel function returning. NG clamping trial today. PT/OT following, increase activity as tolerated (3) Atrial fibrillation with rapid ventricular response: Code(s): I48.91 - Unspecified atrial fibrillation Status: Acute Assessment and Plan: Cardizem drip until tolerating PO. Continue per Cardiology. (4) Type 2 diabetes mellitus: Code(s): E11.9 - Type 2 diabetes mellitus without complications Status: Acute Plan I have discussed the patient's case and plan of care with Dr. Juares Subjective Subjective Date/Time Seen: 01/31/24 11:09 Post Op day: 8 (Exploratory laparotomy with adhesiolysis and ileal resection) Patient reports: feels better, flatus, bowel movement and afebrile Interval history: Patient reports bloating continues to improve. He had one BM last night and one this morning. No nausea. He has a headache and throat soreness he thinks is from the NG tube. No other issues at this time. Exam GI: Inspection: incision (intact with anthony, no erythema or drainage) and other (less distended) GI Palp: Yes Soft to palpation, Yes Tenderness to palpation present (GI) (lower abdomen and incisional) and No Guarding due to palpation present (GI) Auscultation: Hypoactive bowel sounds present Objective Data Vital Signs Vital Signs: Vital Signs - 24 hr 01/30/24 11:35 01/30/24 12:00 01/30/24 12:28 Temperature 97.4 F L Pulse Rate 91 94 94 Respiratory Rate 14 Blood Pressure 122/51 L Pulse Oximetry 98 Oxygen Delivery 01/30/24 14:00 01/30/24 14:00 01/30/24 12:00 Temperature Pulse Rate 90 96 Respiratory Rate Blood Pressure Pulse Oximetry Oxygen Delivery Room Air 01/30/24 16:00 01/30/24 16:00 01/30/24 16:07 Temperature 98.5 F Pulse Rate 81 88 Respiratory Rate 16 Blood Pressure 133/50 L Pulse Oximetry 99 Oxygen Delivery Room Air 01/30/24 18:00 01/30/24 20:15 01/30/24 16:00 Temperature 98.5 F Pulse Rate 94 87 99 Respiratory Rate 17 Blood Pressure 118/54 L Pulse Oximetry 99 Oxygen Delivery 01/30/24 18:00 01/30/24 12:00 01/30/24 22:29 Temperature Pulse Rate 96 78 89 Respiratory Rate Blood Pressure Pulse Oximetry Oxygen Delivery 01/30/24 23:03 01/30/24 20:00 01/30/24 22:00 Temperature Pulse Rate 89 95 93 Respiratory Rate Blood Pressure Pulse Oximetry Oxygen Delivery 01/31/24 00:00 01/31/24 00:41 01/31/24 04:00 Temperature 98 F 98 F Pulse Rate 92 89 91 Respiratory Rate 18 18 Blood Pressure 130/51 L 135/55 L Pulse Oximetry 98 100 Oxygen Delivery 01/31/24 04:00 01/31/24 08:11 01/30/24 20:00 Temperature 97.2 F L Pulse Rate 89 90 Respiratory Rate 16 Blood Pressure 124/54 L Pulse Oximetry 100 100 Oxygen Delivery Room Air 01/30/24 22:00 01/31/24 00:00 01/31/24 02:00 Temperature Pulse Rate 90 88 95 Respiratory Rate Blood Pressure Pulse Oximetry Oxygen Delivery 01/31/24 04:00 01/31/24 06:00 01/31/24 02:00 Temperature Pulse Rate 99 79 95 Respiratory Rate Blood Pressure Pulse Oximetry Oxygen Delivery 01/31/24 04:00 01/31/24 06:00 01/31/24 08:00 Temperature Pulse Rate 99 79 84 Respiratory Rate Blood Pressure Pulse Oximetry Oxygen Delivery 01/31/24 09:03 01/31/24 10:09 01/31/24 08:40 Temp
[2024-01-31 11:27] LABS: Triglycerides 135 mg/dL (<150)
[2024-01-31] MEDS: PHENOL/SOD PHENO SPRAY CHERRY (*BKC) 1 SPRAY MUCOUS MEM (11:57)
[2024-01-31] MEDS: MAGNESIUM HYDROXIDE SUSP 30 ML UDC FEED TUBE (11:58)
--- NOTE | 2024-01-31 11:58 | P.PNIM_ITS ---
Progress Note: A&P Assessment and Plan (1) Small bowel obstruction: Code(s): K56.609 - Unspecified intestinal obstruction, unspecified as to partial versus complete obstruction Status: Acute Assessment and Plan: NPO except ice chips, NG tube to suction, surgery has evaluated patient uncertain if he will dose to the operating room or not at this time. Surgery started patient on ertapenem once daily IV. 01/22: Patient to go to OR today 01/24/24: * Patient is postop day 1 from an ex lap with LOC and bowel resection * Continue NPO status * start PPN and lipids today * Ordered ambulate with assistance * Continue incentive spirometer q.2 hours * Rocephin discontinued per surgical team * IV fluids discontinued per surgical team * Denies passing any gas, no bowel sounds on assessment today 01/25/24: * Continue with current treatment plan * ambulate in room, get of bed to chair today 01/26/2024: * NG out * Clear liquid diet * Up to chair * Re-ordered PPN. Anticipate stopping that when he tolerates a regular diet. 01/26: * Awaiting return of bowel function * Remains on clear liquid diet * Dulcolax suppository today per surgery 01/27: * Repeat Dulcolax suppository today * Still awaiting return of bowel function * Abdomen appears more distended today 01/28: * NG tube replaced last night with 1 L bilious output * Bowel rest * Continue PPN 01/29: NG tube remains in place, continue PPN, continue IV Cardizem. 01/30: Bowels started moving yesterday, clear liquids started today. Patient remains on PPN until tolerating full diet. Remains on Cardizem drip until tolerating diet and restarting oral medication. (2) Atrial fibrillation with rapid ventricular response: Code(s): I48.91 - Unspecified atrial fibrillation Status: Acute Assessment and Plan: Generally rate controlled with occasional paroxysms that increase heart rate. Continue telemetry monitoring. P.r.n. IV metoprolol. Oral medications held at this time due to bowel obstruction. No anticoagulation due to possible need for operative intervention. Rhythm is switching frequently from sinus to atrial fibrillation per review of telemetry. 01/22: OR postponed due to RVR last night. Patient moved to IMU and on diltiazem drip at 15 mg/hr converted to normal sinus at 0430 this morning. Ricardo bernstein assisted with care and saw patient today clearing him for OR. 01/24/24: * Continue to hold Eliquis * Continue with diltiazem drip at 15 milligrams/hour while NPO per Cardiology 01/25/24: * No change to current treatment plan 01/26/24: * Continue with lovenox. Will transition to PO Eliquis if he tolerates his clear liquids today. Will plan to transition off of the diltiazem gtt later this af ternoon should he continue to do well with clear liquids. 01/26: * No change to current treatment 01/27: * No change 01/28: * No change 01/29: IV Cardizem 10 milligrams/hour 01/30: IV Cardizem still a 10 milligrams/hour, sinus rhythm rate of 90 on bedside telemetry. (3) Type 2 diabetes mellitus: Code(s): E11.9 - Type 2 diabetes mellitus without complications Status: Acute Assessment and Plan: Fingerstick glucose every 6 hours while NPO with sliding scale insulin. 01/24/24: * Blood sugar ranging 167-182 * Accu-Cheks change to Q 6 hour * Low-dose sliding scale insulin ordered * Patient being started on PPN and lipids * Continue to hold Farxiga and metformin 01/25/24: * BG ranging 199-216 * Will increase sliding scale ins
--- NOTE | 2024-01-31 11:58 | PM.IMPN ---
Progress Note: A&P Assessment and Plan (1) Small bowel obstruction: Code(s): K56.609 - Unspecified intestinal obstruction, unspecified as to partial versus complete obstruction Status: Acute Assessment and Plan: NPO except ice chips, NG tube to suction, surgery has evaluated patient uncertain if he will dose to the operating room or not at this time. Surgery started patient on ertapenem once daily IV. 01/22: Patient to go to OR today 01/24/24: Patient is postop day 1 from an ex lap with LOC and bowel resection Continue NPO status start PPN and lipids today Ordered ambulate with assistance Continue incentive spirometer q.2 hours Rocephin discontinued per surgical team IV fluids discontinued per surgical team Denies passing any gas, no bowel sounds on assessment today 01/25/24: Continue with current treatment plan ambulate in room, get of bed to chair today 01/26/2024: NG out Clear liquid diet Up to chair Re-ordered PPN. Anticipate stopping that when he tolerates a regular diet. 01/26: Awaiting return of bowel function Remains on clear liquid diet Dulcolax suppository today per surgery 01/27: Repeat Dulcolax suppository today Still awaiting return of bowel function Abdomen appears more distended today 01/28: NG tube replaced last night with 1 L bilious output Bowel rest Continue PPN 01/29: NG tube remains in place, continue PPN, continue IV Cardizem. 01/30: Bowels started moving yesterday, clear liquids started today. Patient remains on PPN until tolerating full diet. Remains on Cardizem drip until tolerating diet and restarting oral medication. (2) Atrial fibrillation with rapid ventricular response: Code(s): I48.91 - Unspecified atrial fibrillation Status: Acute Assessment and Plan: Generally rate controlled with occasional paroxysms that increase heart rate. Continue telemetry monitoring. P.r.n. IV metoprolol. Oral medications held at this time due to bowel obstruction. No anticoagulation due to possible need for operative intervention. Rhythm is switching frequently from sinus to atrial fibrillation per review of telemetry. 01/22: OR postponed due to RVR last night. Patient moved to IMU and on diltiazem drip at 15 mg/hr converted to normal sinus at 0430 this morning. Cardiology assisted with care and saw patient today clearing him for OR. 01/24/24: Continue to hold Eliquis Continue with diltiazem drip at 15 milligrams/hour while NPO per Cardiology 01/25/24: No change to current treatment plan 01/26/24: Continue with lovenox. Will transition to PO Eliquis if he tolerates his clear liquids today. Will plan to transition off of the diltiazem gtt later this afternoon should he continue to do well with clear liquids. 01/26: No change to current treatment 01/27: No change 01/28: No change 01/29: IV Cardizem 10 milligrams/hour 01/30: IV Cardizem still a 10 milligrams/hour, sinus rhythm rate of 90 on bedside telemetry. (3) Type 2 diabetes mellitus: Code(s): E11.9 - Type 2 diabetes mellitus without complications Status: Acute Assessment and Plan: Fingerstick glucose every 6 hours while NPO with sliding scale insulin. 01/24/24: Blood sugar ranging 167-182 Accu-Cheks change to Q 6 hour Low-dose sliding scale insulin ordered Patient being started on PPN and lipids Continue to hold Farxiga and metformin 01/25/24: BG ranging 199-216 Will increase sliding scale insulin to medium dose sliding scale 01/26/24: BG ranging 210-229. Changing to corrective high dose SSI 01/26: Blood sugars still ranging in the 200s. 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
[2024-01-31 12:01] LABS: Glucose Point of Care 198 mg/dl (65-105)
[2024-01-31] MEDS: FAT EMULSIONS IV 20% 250 ML 20.8 ML IVPB (12:59)
[2024-01-31 18:52] LABS: Glucose Point of Care 223 mg/dl (65-105)
[2024-01-31] MEDS: INSULIN ASPART (*BKC) 100 UNITS/ML SUB-Q (18:52)
[2024-01-31] MEDS: INSULIN GLARGINE (*BKC) 100 UNITS/ML 10 UNITS SUB-Q (20:21)
[2024-02-01] VITALS (17 sets, daily range): BP systolic 123–141; BP diastolic 58–68; PULSE 79–108; RESP 14–19; TEMP 36.6–37.8; O2SAT 96–98
[2024-02-01 00:15] LABS: Glucose Point of Care 183 mg/dl (65-105)
[2024-02-01 04:50] LABS: Alanine Aminotransferase 154 U/L (6-50); Albumin Level 3.4 g/dL (3.5-5.1); Alkaline Phosphatase 129 U/L (38-126); Anion Gap 5 mmol/L (4-12); Aspartate Amino Transferase 17 U/L (17-59); Bilirubin,Total 0.5 mg/dL (0.2-1.3); Blood Urea Nitrogen 22 mg/dL (9-20); Calcium 9.8 mg/dL (8.4-10.2); Carbon Dioxide 26 mmol/L (22-30); Chloride 100 mmol/L (98-107); Estimated CRCL calculation 75 ml/min; Estimated Glomerular Filt Rate > 60; Glucose 205 mg/dL (65-110); Magnesium 2.1 mg/dL (1.6-2.3); Potassium 4.4 mmol/L (3.4-5.0); Sodium 131 mmol/L (137-145)
[2024-02-01] MEDS: dilTIAZem 100 MG/100 ML 100 MG/100 ML BAG 10 MG IV CONT (05:06)
[2024-02-01] MEDS: METOCLOPRAMIDE HCL INJ 10 MG/2 ML VIAL IV PUSH ×3 (05:09→18:10)
[2024-02-01] MEDS: HYDROmorphone HCL INJ (*CRX) 1 MG/ML SYR 0.5 MG IV PUSH (05:09)
[2024-02-01] MEDS: INSULIN ASPART (*BKC) 100 UNITS/ML SUB-Q ×2 (05:13→12:40)
[2024-02-01] MEDS: AMINO ACIDS 4.25%/D5W/LYTES/CA 2,000 ML 100 ML IV CONT (06:27)
[2024-02-01] MEDS: ENOXAPARIN 80 MG/0.8 ML SYRINGE 75 MG SUB-Q ×2 (09:36→21:18)
[2024-02-01] MEDS: PANTOPRAZOLE SODIUM IV 40 MG VIAL IV PUSH (09:36)
--- NOTE | 2024-02-01 10:22 | PCNFU ---
Nutrition Follow-Up Complete: Altered GI function related to obstruction as evidenced by diagnosis of small bowel obstruction with need for PPN for alternative nutrition support. Goal:Meet estimated needs - at least 60% energy needs via PPN Pt current nutrition is Clear liquids. Nutrition recommendation: continue to advance diet as tolerated Last recorded weight is 70.2 kg. Bowel Motility: +BM 01/30 Labs Reviewed: Alb:3.4, NA:131, BUN:22, Cr:0.6 Meds Noted: lovenox, novolog, zofran, protonix, lantus, reglan Skin: abd incision Additional Notes: Pt continues with PPN running - Clinimix E 4.25/5 at 100mL/hr providing 1316 kcal (meeting 65% of estimated energy needs), 102g protein (meeting 100% of estimated protein needs), 2650 mL total volume. Clear liquid diet ordered, Intake 75% at this time. Noted + bowel movement and flatus. Recommend to continue to advance diet as tolerated. Monitor PPN rate, intake, labs, wt. Follow up every Sunday and Sunday per protocol
--- NOTE | 2024-02-01 11:28 | PM.PNCARD ---
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 He is hospitalized here recovering from adhesiolysis for treatment of small-bowel obstruction. He is tolerating clear liquids at this time will go ahead and stop his IV diltiazem and switch him back to his oral regimen. Systemic anticoagulation with apixaban needs to be resumed when okay with surgery. Oneil Pacheco MD [facility] Subjective Date/time seen: Date of service: 02/01/24 11:28 Interval history: Cardiology follow up for atrial flutter Date of service 01/24/2024: Feeling well s/p ileal resection yesterday. No abdominal pain. He remains tachycardic on telemetry, current in the 120's - 130's. Denies any palpitations, chest pain, or shortness of breath. Date of service 01/25/2024: Rate is much better controlled today. He feels well and has no cardiovascular complaints. Date of service 01/26/2024: Heart rate is controlled. Still on diltiazem drip. NG just removed today. No chest pain or shortness of breath Date of service 01/27/2024: Heart rate controlled. No chest pain. Does have some abdominal distention still. NG is still out and taking some p.o. Date of service 01/28/2024: Converted to sinus rhythm. Feeling nauseated today. Abdomen is distended. No chest pain Date of service 01/30/2024: Remains in sinus rhythm. NG back in place. No chest pain, shortness of breath Date of service 02/01/2024: Patient is asymptomatic doing well remains in sinus rhythm. Tolerating clear liquid diet. NG tube is still in place Exam Narrative: Appears stated age Const: General: cooperative, healthy appearing, comfortable and no acute distress Orientation/consciousness: patient oriented x3 HENMT: Head: normal to inspection and no cranial bruits Ears: external ears normal Face/Nose/Sinus: Normal external nose present and normal facial exam Face and sinus: normal facial exam Mouth: Yes Normal oral and palatal mucosa present Other: NG tube in place Eyes: General: appearance normal, both eyes and all related structures Sclera: sclerae normal EOM: EOMs intact bilaterally Neck: Neck: normal visual inspection, supple and No JVD Thyroid: thyroid normal Carotids: no bruits Resp: Effort & Inspection: normal respiratory effort, able to speak in complete sentences and no audible wheezes Auscultation: clear to auscultation bilaterally Cardio: Jugular venous distension: no JVD Rate: regular rate and tachycardic Rhythm: regular rhythm and abnormal rhythm Heart sounds: no murmurs Other: Intact dorsalis pedis pulses GI: Inspection: distended Auscultation: abnormal bowel sounds (Absent bowel sounds) Other: NG tube present Skin: General skin exam: normal color Lesions: no lesions Neuro: General: patient oriented x3 Speech: normal speech Extrem: General: normal to inspection and no pedal edema Psych: Appearance: grossly normal and well kempt Mental Status: mental status grossly normal Objective Data Vital Signs Vital Signs: Vital Signs - 24 hr 01/31/24 12:00 01/31/24 12:00 01/31/24 12:00 Temperature 36.2 C L Pulse Rate 94 93 Respiratory Rate 16 Blood Pressure 115/52 L Pulse Oximetry 98 98 Oxygen Delivery Room Air 01/31/24 13:49 01/31/24 13:59 01/31/24 13:59 Temperature Pulse Rate 97 95 95 Respiratory Rate Blood Pressure Pulse Oximetry Oxygen Delivery 01/31/24 16:10 01/31/24 16:00 01/31/24 18:00 Temperature 36.6 C Pulse Rate 85 93 86 Respiratory Rate 18 Blood Pressure 132/52 L Pulse Oximetry 100 Oxygen Delivery 01/31/24 16:00 01/31/24 16:00 01/31/24 18:00 Temperature Pulse Rate 93 86 Respiratory Ra
[2024-02-01] MEDS: dilTIAZem HCL CD 120 MG CAP.24HR PO (11:54)
[2024-02-01 12:20] LABS: Glucose Point of Care 230 mg/dl (65-105)
--- NOTE | 2024-02-01 16:53 | PM.PNGS ---
Progress Note: A&P Assessment and Plan (1) Small bowel obstruction: Code(s): K56.609 - Unspecified intestinal obstruction, unspecified as to partial versus complete obstruction Status: Acute Assessment and Plan: Wounds healing well, no evidence of complication postop day 9. (2) Postoperative ileus: Code(s): K91.89 - Other postprocedural complications and disorders of digestive system; K56.7 - Ileus, unspecified Status: Acute Assessment and Plan: Much improved. Patient tolerated NG tube being clamped and clear liquids. Will DC NG tube and advanced to soft diet. Increase ambulation. Making good progress. (3) Atrial fibrillation with rapid ventricular response: Code(s): I48.91 - Unspecified atrial fibrillation Status: Acute Assessment and Plan: Resolved and Cardizem drip has been stopped, converted to oral medication. Okay to transfer to [facility] floor at any time from surgical perspective. (4) Type 2 diabetes mellitus: Code(s): E11.9 - Type 2 diabetes mellitus without complications Status: Chronic Assessment and Plan: Blood sugars still running 200s. Probably stop PPN tomorrow which should help. Subjective Subjective Date/Time Seen: 02/01/24 16:53 Post Op day: #9. Patient reports: no new complaints, feels better, pain is less, bowel movement and afebrile Exam Const: General: comfortable, no acute distress, alert, awake and thin Nutritional Appearance: thin Orientation/consciousness: patient oriented x3 and No confusion GI: Inspection: non-distended, incision (Dry and healing well) and scaphoid GI Palp: Yes Soft to palpation, No Tenderness to palpation present (GI), No Guarding due to palpation present (GI) and No Rebound tenderness present Neuro: General: patient oriented x3 and no focal motor deficits Extrem: General: no calf tenderness and no edema Psych: Affect: normal affect Insight: Good insight present (Psych) Judgement: Good judgement present (Psych) Objective Data Vital Signs Vital Signs: Vital Signs - 24 hr 01/31/24 18:00 01/31/24 18:00 01/31/24 19:25 Temperature Pulse Rate 86 86 74 Respiratory Rate Blood Pressure Pulse Oximetry Oxygen Delivery 01/31/24 19:25 01/31/24 19:41 01/31/24 20:00 Temperature 36.5 C Pulse Rate 74 96 107 H Respiratory Rate 16 Blood Pressure 131/53 L Pulse Oximetry 95 Oxygen Delivery 01/31/24 22:00 01/31/24 22:08 01/31/24 23:43 Temperature 37.0 C Pulse Rate 95 100 98 Respiratory Rate 16 Blood Pressure 131/59 L Pulse Oximetry 97 Oxygen Delivery 02/01/24 00:14 01/31/24 21:57 02/01/24 00:00 Temperature Pulse Rate 86 88 Respiratory Rate Blood Pressure Pulse Oximetry 96 Oxygen Delivery Room Air 02/01/24 02:00 02/01/24 02:00 02/01/24 04:00 Temperature 36.6 C Pulse Rate 90 88 91 Respiratory Rate 16 Blood Pressure 123/58 L Pulse Oximetry 98 Oxygen Delivery 02/01/24 04:00 02/01/24 05:06 02/01/24 05:06 Temperature Pulse Rate 92 92 92 Respiratory Rate Blood Pressure Pulse Oximetry Oxygen Delivery 02/01/24 06:00 02/01/24 06:02 02/01/24 07:56 Temperature Pulse Rate 81 79 92 Respiratory Rate Blood Pressure Pulse Oximetry Oxygen Delivery 02/01/24 08:00 02/01/24 08:00 02/01/24 10:00 Temperature 36.8 C Pulse Rate 98 106 H 108 H Respiratory Rate 14 Blood Pressure 130/59 L Pulse Oximetry 97 Oxygen Delivery 02/01/24 10:00 02/01/24 12:00 02/01/24 12:00 Temperature 37.1 C Pulse Rate 108 H 90 92 Respiratory Rate 14 Blood Pressure 131/58 L Pulse Oximetry 98 Oxygen Delivery 02/01/24 12:00 02/01/24 13:04 02/01/24 14:00 Temperature Pulse Rate 85 80 95 Respiratory Rate Blood Pressure Pulse Oximetry Oxygen Delivery 02/01/24 16:00 02/01/24 16:00 Temperature 37.8 C H Pulse Rate 96 91 Respiratory Rate 14 Blood
[2024-02-01] MEDS: FAT EMULSIONS IV 20% 250 ML 20.8 ML IVPB (17:02)
[2024-02-01 18:20] LABS: Glucose Point of Care 184 mg/dl (65-105)
--- NOTE | 2024-02-01 18:35 | P.PNIM_ITS ---
Progress Note: A&P Assessment and Plan (1) Small bowel obstruction: Code(s): K56.609 - Unspecified intestinal obstruction, unspecified as to partial versus complete obstruction Status: Acute Assessment and Plan: NPO except ice chips, NG tube to suction, surgery has evaluated patient uncertain if he will dose to the operating room or not at this time. Surgery started patient on ertapenem once daily IV. 01/22: Patient to go to OR today 01/24/24: * Patient is postop day 1 from an ex lap with LOC and bowel resection * Continue NPO status * start PPN and lipids today * Ordered ambulate with assistance * Continue incentive spirometer q.2 hours * Rocephin discontinued per surgical team * IV fluids discontinued per surgical team * Denies passing any gas, no bowel sounds on assessment today 01/25/24: * Continue with current treatment plan * ambulate in room, get of bed to chair today 01/26/2024: * NG out * Clear liquid diet * Up to chair * Re-ordered PPN. Anticipate stopping that when he tolerates a regular diet. 01/26: * Awaiting return of bowel function * Remains on clear liquid diet * Dulcolax suppository today per surgery 01/27: * Repeat Dulcolax suppository today * Still awaiting return of bowel function * Abdomen appears more distended today 01/28: * NG tube replaced last night with 1 L bilious output * Bowel rest * Continue PPN 01/29: NG tube remains in place, continue PPN, continue IV Cardizem. 01/30: Bowels started moving yesterday, clear liquids started today. Patient remains on PPN until tolerating full diet. Remains on Cardizem drip until tolerating diet and restarting oral medication. 01/31: NG tube in place. DC orders and switched to oral diet as per surgery. (2) Atrial fibrillation with rapid ventricular response: Code(s): I48.91 - Unspecified atrial fibrillation Status: Acute Assessment and Plan: Generally rate controlled with occasional paroxysms that increase heart rate. Continue telemetry monitoring. P.r.n. IV metoprolol. Oral medications held at this time due to bowel obstruction. No anticoagulation due to possible need for operative intervention. Rhythm is switching frequently from sinus to atrial fibrillation per review of telemetry. 01/22: OR postponed due to RVR last night. Patient moved to IMU and on diltiazem drip at 15 mg/hr converted to normal sinus at 0430 this morning. Cardiology assisted with care and saw patient today clearing him for OR. 01/24/24: * Continue to hold Eliquis * Continue with diltiazem drip at 15 milligrams/hour while NPO per Cardiology 01/25/24: * No change to current treatment plan 01/26/24: * Continue with lovenox. Will transition to PO Eliquis if he tolerates his clear liquids today. Will plan to transition off of the diltiazem gtt later this afternoon should he continue to do well with clear liquids. 01/26: * No change to current treatment 01/27: * No change 01/28: * No change 01/29: IV Cardizem 10 milligrams/hour 01/30: IV Cardizem still a 10 milligrams/hour, sinus rhythm rate of 90 on bedside telemetry. 01/31: Heart rate stable (3) Type 2 diabetes mellitus: Code(s): E11.9 - Type 2 diabetes mellitus without complications Status: Chronic Assessment and Plan: Fingerstick glucose every 6 hours while NPO with sliding scale insulin. 01/24/24: * Blood sugar ranging 167-182 * Accu-Cheks change to Q 6 hour * Low-dose sliding scale insulin ordered * Patient being started on PPN and lipids
--- NOTE | 2024-02-01 18:35 | PM.IMPN ---
Progress Note: A&P Assessment and Plan (1) Small bowel obstruction: Code(s): K56.609 - Unspecified intestinal obstruction, unspecified as to partial versus complete obstruction Status: Acute Assessment and Plan: NPO except ice chips, NG tube to suction, surgery has evaluated patient uncertain if he will dose to the operating room or not at this time. Surgery started patient on ertapenem once daily IV. 01/22: Patient to go to OR today 01/24/24: Patient is postop day 1 from an ex lap with LOC and bowel resection Continue NPO status start PPN and lipids today Ordered ambulate with assistance Continue incentive spirometer q.2 hours Rocephin discontinued per surgical team IV fluids discontinued per surgical team Denies passing any gas, no bowel sounds on assessment today 01/25/24: Continue with current treatment plan ambulate in room, get of bed to chair today 01/26/2024: NG out Clear liquid diet Up to chair Re-ordered PPN. Anticipate stopping that when he tolerates a regular diet. 01/26: Awaiting return of bowel function Remains on clear liquid diet Dulcolax suppository today per surgery 01/27: Repeat Dulcolax suppository today Still awaiting return of bowel function Abdomen appears more distended today 01/28: NG tube replaced last night with 1 L bilious output Bowel rest Continue PPN 01/29: NG tube remains in place, continue PPN, continue IV Cardizem. 01/30: Bowels started moving yesterday, clear liquids started today. Patient remains on PPN until tolerating full diet. Remains on Cardizem drip until tolerating diet and restarting oral medication. 01/31: NG tube in place. DC orders and switched to oral diet as per surgery. (2) Atrial fibrillation with rapid ventricular response: Code(s): I48.91 - Unspecified atrial fibrillation Status: Acute Assessment and Plan: Generally rate controlled with occasional paroxysms that increase heart rate. Continue telemetry monitoring. P.r.n. IV metoprolol. Oral medications held at this time due to bowel obstruction. No anticoagulation due to possible need for operative intervention. Rhythm is switching frequently from sinus to atrial fibrillation per review of telemetry. 01/22: OR postponed due to RVR last night. Patient moved to IMU and on diltiazem drip at 15 mg/hr converted to normal sinus at 0430 this morning. Cardiology assisted with care and saw patient today clearing him for OR. 01/24/24: Continue to hold Eliquis Continue with diltiazem drip at 15 milligrams/hour while NPO per Cardiology 01/25/24: No change to current treatment plan 01/26/24: Continue with lovenox. Will transition to PO Eliquis if he tolerates his clear liquids today. Will plan to transition off of the diltiazem gtt later this afternoon should he continue to do well with clear liquids. 01/26: No change to current treatment 01/27: No change 01/28: No change 01/29: IV Cardizem 10 milligrams/hour 01/30: IV Cardizem still a 10 milligrams/hour, sinus rhythm rate of 90 on bedside telemetry. 01/31: Heart rate stable (3) Type 2 diabetes mellitus: Code(s): E11.9 - Type 2 diabetes mellitus without complications Status: Chronic Assessment and Plan: Fingerstick glucose every 6 hours while NPO with sliding scale insulin. 01/24/24: Blood sugar ranging 167-182 Accu-Cheks change to Q 6 hour Low-dose sliding scale insulin ordered Patient being started on PPN and lipids Continue to hold Farxiga and metformin 01/25/24: BG ranging 199-216 Will increase sliding scale insulin to medium dose sliding scale 01/26/24: BG ranging 210-229. Changing to corrective high dose SSI 01/26: Blood sugars still ranging in the 200s. Will start on low-dose Lantus 6 units 01/27: Increase Lantus to 10 units 01/28: Point of care blood sugar 207 this morning 01/30: Stable 01/31: Continue diabetic meds. Accu-Ch
--- NOTE | 2024-02-01 18:40 | PC.NURSE ---
This patient, Gene Yen, was transferred to [facility] on 02/01/24 at 1735. Personal belongings sent with patient. Report given to Keesha GRIFFIN. Appropriate documentation sent with patient.
[2024-02-01] MEDS: INSULIN GLARGINE (*BKC) 100 UNITS/ML 10 UNITS SUB-Q (21:21)
[2024-02-01 21:26] LABS: Glucose Point of Care 203 mg/dl (65-105)
[2024-02-02] VITALS (9 sets, daily range): BP systolic 126–134; BP diastolic 61–63; PULSE 80–98; RESP 16–20; TEMP 36.4–37.2; O2SAT 98–99
[2024-02-02] MEDS: METOCLOPRAMIDE HCL INJ 10 MG/2 ML VIAL IV PUSH ×5 (00:19→23:28)
[2024-02-02] MEDS: INSULIN ASPART (*BKC) 100 UNITS/ML SUB-Q (00:19)
[2024-02-02] MEDS: AMINO ACIDS 4.25%/D5W/LYTES/CA 2,000 ML 100 ML IV CONT (01:52)
[2024-02-02 06:14] LABS: Hematocrit 35.3 % (42.0-52.0); Hemoglobin 10.9 g/dL (14.0-18.0); Mean Corpuscular HGB Conc 30.9 g/dl (32-36); Mean Corpuscular Hemoglobin 26.9 pg (26-34); Mean Corpuscular Volume 87.2 fl (80-100); Mean Platelet Volume 10.7 fl (7.4-10.4); Platelet Count Result 254 k/mm3 (150-375); Red Blood Count 4.05 M/mm3 (4.6-6.20); Red Cell Distribution Width 13.4 % (11.5-14.5)
[2024-02-02 06:25] LABS: Alanine Aminotransferase 101 U/L (6-50); Albumin Level 3.2 g/dL (3.5-5.1); Alkaline Phosphatase 109 U/L (38-126); Anion Gap 4 mmol/L (4-12); Aspartate Amino Transferase 21 U/L (17-59); Bilirubin,Total 0.5 mg/dL (0.2-1.3); Blood Urea Nitrogen 22 mg/dL (9-20); Calcium 9.2 mg/dL (8.4-10.2); Carbon Dioxide 28 mmol/L (22-30); Chloride 99 mmol/L (98-107); Estimated CRCL calculation 88 ml/min; Estimated Glomerular Filt Rate > 60; Glucose 181 mg/dL (65-110); Magnesium 1.9 mg/dL (1.6-2.3); Potassium 4.4 mmol/L (3.4-5.0); Sodium 131 mmol/L (137-145)
[2024-02-02] MEDS: dilTIAZem HCL CD 120 MG CAP.24HR PO (08:51)
[2024-02-02] MEDS: ENOXAPARIN 80 MG/0.8 ML SYRINGE 75 MG SUB-Q ×2 (08:52→20:51)
[2024-02-02] MEDS: PANTOPRAZOLE 40 MG TABLET PO (08:52)
--- NOTE | 2024-02-02 12:14 | PM.PNGS ---
Progress Note: A&P Assessment and Plan (1) Small bowel obstruction: Code(s): K56.609 - Unspecified intestinal obstruction, unspecified as to partial versus complete obstruction Status: Acute Assessment and Plan: Appears that bowel function has returned fully. Patient just had a bowel movement this morning. He has tolerated a soft diet with no nausea whatsoever. Will advance to regular diabetic diet. Increase ambulation today. DC PPN and lipids. Saline lock IV. Making good progress. (2) Atrial fibrillation with rapid ventricular response: Code(s): I48.91 - Unspecified atrial fibrillation Status: Acute Assessment and Plan: No recurrence. Patient now on diltiazem p.o.. (3) Type 2 diabetes mellitus: Code(s): E11.9 - Type 2 diabetes mellitus without complications Status: Chronic Assessment and Plan: Continue to monitor blood sugars. Once PPN has stopped, blood sugars will hopefully be mostly in the 100s. Subjective Subjective Date/Time Seen: 02/02/24 12:14 Post Op day: #10 Patient reports: no new complaints, feels better, pain is less, tolerating a regular diet (Soft diet), bowel movement and afebrile Exam Const: General: comfortable, no acute distress and thin Orientation/consciousness: patient oriented x3 GI: Inspection: non-distended and incision (Dry and healing well) GI Palp: Yes Soft to palpation, No Tenderness to palpation present (GI), No Guarding due to palpation present (GI) and No Rebound tenderness present Auscultation: Hypoactive bowel sounds present Neuro: General: patient oriented x3 and no focal motor deficits Extrem: General: no calf tenderness and no edema Psych: Affect: normal affect Insight: Good insight present (Psych) Judgement: Good judgement present (Psych) Objective Data Vital Signs Vital Signs: Vital Signs - 24 hr 02/01/24 13:04 02/01/24 14:00 02/01/24 16:00 Temperature 37.8 C H Pulse Rate 80 95 96 Respiratory Rate 14 Blood Pressure 137/62 Pulse Oximetry 98 02/01/24 16:00 02/01/24 18:36 02/01/24 22:16 Temperature 36.7 C 37.3 C Pulse Rate 91 94 99 Respiratory Rate 19 18 Blood Pressure 141/65 H 141/68 H Pulse Oximetry 97 96 02/01/24 20:00 02/02/24 00:59 02/02/24 00:00 Temperature 36.6 C Pulse Rate 92 93 94 Respiratory Rate 20 Blood Pressure 128/61 Pulse Oximetry 98 02/02/24 04:00 02/02/24 06:50 Temperature 36.4 C Pulse Rate 80 96 Respiratory Rate 20 Blood Pressure 134/63 Pulse Oximetry 99 Intake/Output Intake/Output: Intake & Output 01/30/24 01/31/24 02/01/24 02/02/24 23:59 23:59 23:59 23:59 Intake Total 2151.3 1240.0 3009.4 4391.7 Output Total 2050 1400 1475 575 Balance 101.3 -160.0 1534.4 3816.7 Meds/Results Medications: Active Medications Generic Name Dose Route Start Last Admin Trade Name Freq PRN Reason Stop Dose Admin Acetaminophen 500 mg 02/02/24 12:08 Acetaminophen 500 Mg Tablet PO Q6H PRN Mild Pain (1-3) or Fever Dextrose 12.5 gm 01/21/24 17:24 Dextrose 50% 25 Gm/50 Ml Syringe IV PUSH PRN PRN Hypoglycemia Protocol Diltiazem HCl 120 mg 02/01/24 11:30 02/02/24 08:51 Diltiazem Hcl Cd 120 Mg Cap.24hr PO 120 mg QAM SAKSHI Administration Enoxaparin Sodium 75 mg 01/30/24 21:00 02/02/24 08:52 Enoxaparin 80 Mg/0.8 Ml Syringe SUB-Q 75 mg Q12HR SAKSHI Administration Glucagon 1 mg 01/21/24 17:24 Glucagon For Inj 1 Mg Vial IM PRN PRN Hypoglycemia Protocol Glucose 15 gm 01/21/24 17:24 Glucose Oral Gel 15 Gm Of Glucse In 37.5 Gm Tube PO PRN PRN Hypoglycemia Protocol Hydromorphone HCl 0.5 mg 01/23/24 19:42 02/01/24 05:09 Hydromorphone Hcl Inj (*Crx) 1 Mg/Ml Syr IV PUSH 0.5 mg Q2H PRN Administration Pain Rated 4-6 Hydromorphone HCl 1 mg 01/23/24 19:42 01/28/24 23:55 Hydromorphone Hcl Inj (*Crx) 1 Mg/Ml Syr IV PUSH 1 mg Q2H PRN Ad
[2024-02-02 12:52] LABS: Glucose Point of Care 157 mg/dl (65-105)
--- NOTE | 2024-02-02 13:31 | P.PNIM_ITS ---
Progress Note: A&P Assessment and Plan (1) Small bowel obstruction: Code(s): K56.609 - Unspecified intestinal obstruction, unspecified as to partial versus complete obstruction Status: Acute Assessment and Plan: Improving Tolerating Po. will increase diet as tolerated (2) Atrial fibrillation with rapid ventricular response: Code(s): I48.91 - Unspecified atrial fibrillation Status: Acute Assessment and Plan: Generally rate controlled with occasional paroxysms that increase heart rate. Continue telemetry monitoring. P.r.n. IV metoprolol. Oral medications held at this time due to bowel obstruction. No anticoagulation due to possible need for operative intervention. Rhythm is switching frequently from sinus to atrial fibrillation per review of telemetry. 01/22: OR postponed due to RVR last night. Patient moved to IMU and on diltiazem drip at 15 mg/hr converted to normal sinus at 0430 this morning. Cardiology assisted with care and saw patient today clearing him for OR. 01/24/24: * Continue to hold Eliquis * Continue with diltiazem drip at 15 milligrams/hour while NPO per Cardiology 01/25/24: * No change to current treatment plan 01/26/24: * Continue with lovenox. Will transition to PO Eliquis if he tolerates his clear liquids today. Will plan to transition off of the diltiazem gtt later this afternoon should he continue to do well with clear liquids. 01/26: * No change to current treatment 01/27: * No change 01/28: * No change 01/29: IV Cardizem 10 milligrams/hour 01/30: IV Cardizem still a 10 milligrams/hour, sinus rhythm rate of 90 on bedside telemetry. 01/31: Heart rate stable 02/02/2024 Stable on current medications, we will continue current treatment (3) Type 2 diabetes mellitus: Code(s): E11.9 - Type 2 diabetes mellitus without complications Status: Chronic Assessment and Plan: Fingerstick glucose every 6 hours while NPO with sliding scale insulin. 01/24/24: * Blood sugar ranging 167-182 * Accu-Cheks change to Q 6 hour * Low-dose sliding scale insulin ordered * Patient being started on PPN and lipids * Continue to hold Farxiga and metformin 01/25/24: * BG ranging 199-216 * Will increase sliding scale insulin to medium dose sliding scale 01/26/24: * BG ranging 210-229. * Changing to corrective high dose SSI 01/26: * Blood sugars still ranging in the 200s. * Will start on low-dose Lantus 6 units 01/27: * Increase Lantus to 10 units 01/28: * Point of care blood sugar 207 this morning 01/30: Stable 01/31: Continue diabetic meds. 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 01/22: Going to OR today 01/24/24: * Currently Eliquis on hold * Surgical team started Lovenox 40 mg daily 01/26/24: * Receiving lovenox instead of Eliquis given recent NG. 01/26: * Continue current treatment 01/28: * Continue with Lovenox 02/02/2024 Stable on current medications, we will continue current treatment (5) Gastroesophageal reflux disease: Code(s): K21.9 - Gastro-esophageal reflux disease without esophagitis Status: Acute Assessment a
--- NOTE | 2024-02-02 13:31 | PM.IMPN ---
Progress Note: A&P Assessment and Plan (1) Small bowel obstruction: Code(s): K56.609 - Unspecified intestinal obstruction, unspecified as to partial versus complete obstruction Status: Acute Assessment and Plan: Improving Tolerating Po. will increase diet as tolerated (2) Atrial fibrillation with rapid ventricular response: Code(s): I48.91 - Unspecified atrial fibrillation Status: Acute Assessment and Plan: Generally rate controlled with occasional paroxysms that increase heart rate. Continue telemetry monitoring. P.r.n. IV metoprolol. Oral medications held at this time due to bowel obstruction. No anticoagulation due to possible need for operative intervention. Rhythm is switching frequently from sinus to atrial fibrillation per review of telemetry. 01/22: OR postponed due to RVR last night. Patient moved to IMU and on diltiazem drip at 15 mg/hr converted to normal sinus at 0430 this morning. Cardiology assisted with care and saw patient today clearing him for OR. 01/24/24: Continue to hold Eliquis Continue with diltiazem drip at 15 milligrams/hour while NPO per Cardiology 01/25/24: No change to current treatment plan 01/26/24: Continue with lovenox. Will transition to PO Eliquis if he tolerates his clear liquids today. Will plan to transition off of the diltiazem gtt later this afternoon should he continue to do well with clear liquids. 01/26: No change to current treatment 01/27: No change 01/28: No change 01/29: IV Cardizem 10 milligrams/hour 01/30: IV Cardizem still a 10 milligrams/hour, sinus rhythm rate of 90 on bedside telemetry. 01/31: Heart rate stable 02/02/2024 Stable on current medications, we will continue current treatment (3) Type 2 diabetes mellitus: Code(s): E11.9 - Type 2 diabetes mellitus without complications Status: Chronic Assessment and Plan: Fingerstick glucose every 6 hours while NPO with sliding scale insulin. 01/24/24: Blood sugar ranging 167-182 Accu-Cheks change to Q 6 hour Low-dose sliding scale insulin ordered Patient being started on PPN and lipids Continue to hold Farxiga and metformin 01/25/24: BG ranging 199-216 Will increase sliding scale insulin to medium dose sliding scale 01/26/24: BG ranging 210-229. Changing to corrective high dose SSI 01/26: Blood sugars still ranging in the 200s. Will start on low-dose Lantus 6 units 01/27: Increase Lantus to 10 units 01/28: Point of care blood sugar 207 this morning 01/30: Stable 01/31: Continue diabetic meds. Accu-Cheks qAC and qHS ordered with low-dose insulin coverage as per protocol 02/02/2024 Stable on current medications, we will continue current treatment (4) Chronic anticoagulation: Code(s): Z79.01 - snf (current) use of anticoagulants Status: Acute Assessment and Plan: On hold at this time due to bowel obstruction and possible need to proceed to the OR. 01/22: Going to OR today 01/24/24: Currently Eliquis on hold Surgical team started Lovenox 40 mg daily 01/26/24: Receiving lovenox instead of Eliquis given recent NG. 01/26: Continue current treatment 01/28: Continue with Lovenox 02/02/2024 Stable on current medications, we will continue current treatment (5) Gastroesophageal reflux disease: Code(s): K21.9 - Gastro-esophageal reflux disease without esophagitis Status: Acute Assessment and Plan: Stable on current medications, we will continue current treatment (6) Paroxysmal atrial fibrillation: Code(s): I48.0 - Paroxysmal atrial fibrillation Status: Acute Assessment and Plan: Stable on current medications, we will continue current treatment Plan Follow-up closely with surgery. DC planning when cleared by surgery. DVT prophylaxis Mechanical Code status FULL Subjective Date/time seen: 02/02/24 13:31 Interval history: Patient wa
[2024-02-02 14:41] LABS: Glucose Point of Care 207 mg/dl (65-105)
[2024-02-02 17:17] LABS: Glucose Point of Care 178 mg/dl (65-105)
[2024-02-02] MEDS: INSULIN GLARGINE (*BKC) 100 UNITS/ML 10 UNITS SUB-Q (20:55)
[2024-02-02 21:10] LABS: Glucose Point of Care 174 mg/dl (65-105)
[2024-02-03] VITALS (9 sets, daily range): BP systolic 117–133; BP diastolic 56–62; PULSE 74–101; RESP 16–18; TEMP 36.2–37.1; O2SAT 97–99
[2024-02-03] MEDS: METOCLOPRAMIDE HCL INJ 10 MG/2 ML VIAL IV PUSH ×3 (05:11→17:18)
[2024-02-03 05:49] LABS: Hematocrit 38.6 % (42.0-52.0); Hemoglobin 11.4 g/dL (14.0-18.0); Mean Corpuscular HGB Conc 29.5 g/dl (32-36); Mean Corpuscular Hemoglobin 27.1 pg (26-34); Mean Corpuscular Volume 91.7 fl (80-100); Mean Platelet Volume 10.6 fl (7.4-10.4); Platelet Count Result 270 k/mm3 (150-375); Red Blood Count 4.21 M/mm3 (4.6-6.20); Red Cell Distribution Width 13.5 % (11.5-14.5)
[2024-02-03 06:04] LABS: Alanine Aminotransferase 79 U/L (6-50); Albumin Level 3.3 g/dL (3.5-5.1); Alkaline Phosphatase 109 U/L (38-126); Anion Gap 5 mmol/L (4-12); Aspartate Amino Transferase 15 U/L (17-59); Bilirubin,Total 0.7 mg/dL (0.2-1.3); Blood Urea Nitrogen 19 mg/dL (9-20); Calcium 9.2 mg/dL (8.4-10.2); Carbon Dioxide 26 mmol/L (22-30); Chloride 99 mmol/L (98-107); Estimated CRCL calculation 91 ml/min; Estimated Glomerular Filt Rate > 60; Glucose 127 mg/dL (65-110); Magnesium 1.8 mg/dL (1.6-2.3); Potassium 4.5 mmol/L (3.4-5.0); Sodium 130 mmol/L (137-145)
[2024-02-03 08:40] LABS: Glucose Point of Care 139 mg/dl (65-105)
[2024-02-03] MEDS: PANTOPRAZOLE 40 MG TABLET PO (09:12)
[2024-02-03] MEDS: dilTIAZem HCL CD 120 MG CAP.24HR PO (09:12)
[2024-02-03] MEDS: ENOXAPARIN 80 MG/0.8 ML SYRINGE 75 MG SUB-Q (09:13)
[2024-02-03 11:47] LABS: Glucose Point of Care 164 mg/dl (65-105)
--- NOTE | 2024-02-03 12:10 | P.PNIM_ITS ---
Progress Note: A&P Assessment and Plan (1) Small bowel obstruction: Code(s): K56.609 - Unspecified intestinal obstruction, unspecified as to partial versus complete obstruction Status: Acute Assessment and Plan: Improving Tolerating Po. will increase diet as tolerated (2) Atrial fibrillation with rapid ventricular response: Code(s): I48.91 - Unspecified atrial fibrillation Status: Acute Assessment and Plan: Generally rate controlled with occasional paroxysms that increase heart rate. Continue telemetry monitoring. P.r.n. IV metoprolol. Oral medications held at this time due to bowel obstruction. No anticoagulation due to possible need for operative intervention. Rhythm is switching frequently from sinus to atrial fibrillation per review of telemetry. 01/22: OR postponed due to RVR last night. Patient moved to IMU and on diltiazem drip at 15 mg/hr converted to normal sinus at 0430 this morning. Cardiology assisted with care and saw patient today clearing him for OR. 01/24/24: * Continue to hold Eliquis * Continue with diltiazem drip at 15 milligrams/hour while NPO per Cardiology 01/25/24: * No change to current treatment plan 01/26/24: * Continue with lovenox. Will transition to PO Eliquis if he tolerates his clear liquids today. Will plan to transition off of the diltiazem gtt later this afternoon should he continue to do well with clear liquids. 01/26: * No change to current treatment 01/27: * No change 01/28: * No change 01/29: IV Cardizem 10 milligrams/hour 01/30: IV Cardizem still a 10 milligrams/hour, sinus rhythm rate of 90 on bedside telemetry. 01/31: Heart rate stable 02/02/2024 Stable on current medications, we will continue current treatment 02/03/2024 Stable on current medication, continue current treatmen (3) Type 2 diabetes mellitus: Code(s): E11.9 - Type 2 diabetes mellitus without complications Status: Chronic Assessment and Plan: Fingerstick glucose every 6 hours while NPO with sliding scale insulin. 01/24/24: * Blood sugar ranging 167-182 * Accu-Cheks change to Q 6 hour * Low-dose sliding scale insulin ordered * Patient being started on PPN and lipids * Continue to hold Farxiga and metformin 01/25/24: * BG ranging 199-216 * Will increase sliding scale insulin to medium dose sliding scale 01/26/24: * BG ranging 210-229. * Changing to corrective high dose SSI 01/26: * Blood sugars still ranging in the 200s. * Will start on low-dose Lantus 6 units 01/27: * Increase Lantus to 10 units 01/28: * Point of care blood sugar 207 this morning 01/30: Stable 01/31: Continue diabetic meds. 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 01/22: Going to OR today 01/24/24: * Currently Eliquis on hold * Surgical team started Lovenox 40 mg daily 01/26/24: * Receiving lovenox instead of Eliquis given recent NG. 01/26: * Continue current treatment 01/28: * Continue with Lovenox 02/02/2024 Stable on current medications, we will continue current treatment 02/03/2024
--- NOTE | 2024-02-03 12:10 | PM.IMPN ---
Progress Note: A&P Assessment and Plan (1) Small bowel obstruction: Code(s): K56.609 - Unspecified intestinal obstruction, unspecified as to partial versus complete obstruction Status: Acute Assessment and Plan: Improving Tolerating Po. will increase diet as tolerated (2) Atrial fibrillation with rapid ventricular response: Code(s): I48.91 - Unspecified atrial fibrillation Status: Acute Assessment and Plan: Generally rate controlled with occasional paroxysms that increase heart rate. Continue telemetry monitoring. P.r.n. IV metoprolol. Oral medications held at this time due to bowel obstruction. No anticoagulation due to possible need for operative intervention. Rhythm is switching frequently from sinus to atrial fibrillation per review of telemetry. 01/22: OR postponed due to RVR last night. Patient moved to IMU and on diltiazem drip at 15 mg/hr converted to normal sinus at 0430 this morning. Cardiology assisted with care and saw patient today clearing him for OR. 01/24/24: Continue to hold Eliquis Continue with diltiazem drip at 15 milligrams/hour while NPO per Cardiology 01/25/24: No change to current treatment plan 01/26/24: Continue with lovenox. Will transition to PO Eliquis if he tolerates his clear liquids today. Will plan to transition off of the diltiazem gtt later this afternoon should he continue to do well with clear liquids. 01/26: No change to current treatment 01/27: No change 01/28: No change 01/29: IV Cardizem 10 milligrams/hour 01/30: IV Cardizem still a 10 milligrams/hour, sinus rhythm rate of 90 on bedside telemetry. 01/31: Heart rate stable 02/02/2024 Stable on current medications, we will continue current treatment 02/03/2024 Stable on current medication, continue current treatmen (3) Type 2 diabetes mellitus: Code(s): E11.9 - Type 2 diabetes mellitus without complications Status: Chronic Assessment and Plan: Fingerstick glucose every 6 hours while NPO with sliding scale insulin. 01/24/24: Blood sugar ranging 167-182 Accu-Cheks change to Q 6 hour Low-dose sliding scale insulin ordered Patient being started on PPN and lipids Continue to hold Farxiga and metformin 01/25/24: BG ranging 199-216 Will increase sliding scale insulin to medium dose sliding scale 01/26/24: BG ranging 210-229. Changing to corrective high dose SSI 01/26: Blood sugars still ranging in the 200s. Will start on low-dose Lantus 6 units 01/27: Increase Lantus to 10 units 01/28: Point of care blood sugar 207 this morning 01/30: Stable 01/31: Continue diabetic meds. Accu-Cheks qAC and qHS ordered with low-dose insulin coverage as per protocol 02/02/2024 Stable on current medications, we will continue current treatment 02/03/2024 Stable on current medication, continue current treatmen (4) Chronic anticoagulation: Code(s): Z79.01 - terminal make up operator (current) use of anticoagulants Status: Acute Assessment and Plan: On hold at this time due to bowel obstruction and possible need to proceed to the OR. 01/22: Going to OR today 01/24/24: Currently Eliquis on hold Surgical team started Lovenox 40 mg daily 01/26/24: Receiving lovenox instead of Eliquis given recent NG. 01/26: Continue current treatment 01/28: Continue with Lovenox 02/02/2024 Stable on current medications, we will continue current treatment 02/03/2024 Stable on current medication, continue current treatmen (5) Gastroesophageal reflux disease: Code(s): K21.9 - Gastro-esophageal reflux disease without esophagitis Status: Acute Assessment and Plan: Stable on current medications, we will continue current treatment (6) Paroxysmal atrial fibrillation: Code(s): I48.0 - Paroxysmal atrial fibrillation Status: Acute Assessment and Plan: Stable on current medications, we will continue current treatment
--- NOTE | 2024-02-03 13:56 | PM.PNGS ---
Progress Note: A&P Assessment and Plan (1) Small bowel obstruction: Code(s): K56.609 - Unspecified intestinal obstruction, unspecified as to partial versus complete obstruction Status: Acute Assessment and Plan: resolved, bowel function returned. Can be discharged from surgical standpoint. Discharge instructions placed (2) Atrial fibrillation with rapid ventricular response: Code(s): I48.91 - Unspecified atrial fibrillation Status: Acute Assessment and Plan: Restart apixaban 5mg bid (3) Chronic anticoagulation: Code(s): Z79.01 - salvage determiner (current) use of anticoagulants Status: Acute Assessment and Plan: as above, stop therapeutic lovenox (4) Type 2 diabetes mellitus: Code(s): E11.9 - Type 2 diabetes mellitus without complications Status: Chronic Assessment and Plan: blood sugars better off PPN Subjective Subjective Date/Time Seen: 02/03/24 13:56 Post Op day: #11 Patient reports: no new complaints, feels better, pain is less, tolerating a regular diet, bowel movement and afebrile Exam Const: General: comfortable and no acute distress Orientation/consciousness: patient oriented x3 GI: Inspection: incision (healing well, anthony intact) and scaphoid GI Palp: Yes Soft to palpation, No Tenderness to palpation present (GI), No Guarding due to palpation present (GI), No Hernia present, No Palpable mass present, No Ascites present and No Rebound tenderness present Auscultation: normal bowel sounds Neuro: General: patient oriented x3 and no focal motor deficits Extrem: General: no calf tenderness and no edema Psych: Affect: normal affect Insight: Good insight present (Psych) Judgement: Good judgement present (Psych) Objective Data Vital Signs Vital Signs: Vital Signs - 24 hr 02/02/24 16:00 02/02/24 16:00 02/02/24 20:04 Temperature 37.2 C 37.1 C Pulse Rate 96 94 88 Respiratory Rate 18 16 Blood Pressure 126/61 130/61 Pulse Oximetry 98 99 02/02/24 20:00 02/03/24 00:00 02/03/24 04:00 Temperature Pulse Rate 89 98 87 Respiratory Rate Blood Pressure Pulse Oximetry 02/03/24 06:05 Temperature 37.1 C Pulse Rate 94 Respiratory Rate 16 Blood Pressure 117/61 Pulse Oximetry 98 Intake/Output Intake/Output: Intake & Output 01/31/24 02/01/24 02/02/24 02/03/24 23:59 23:59 23:59 23:59 Intake Total 1240.0 3009.4 5111.7 580 Output Total 1400 1475 1975 200 Balance -160.0 1534.4 3136.7 380 Meds/Results Medications: Active Medications Generic Name Dose Route Start Last Admin Trade Name Freq PRN Reason Stop Dose Admin Acetaminophen 500 mg 02/02/24 12:08 Acetaminophen 500 Mg Tablet PO Q6H PRN Mild Pain (1-3) or Fever Dextrose 12.5 gm 01/21/24 17:24 Dextrose 50% 25 Gm/50 Ml Syringe IV PUSH PRN PRN Hypoglycemia Protocol Diltiazem HCl 120 mg 02/01/24 11:30 02/03/24 09:12 Diltiazem Hcl Cd 120 Mg Cap.24hr PO 120 mg QAM SAKSHI Administration Enoxaparin Sodium 75 mg 01/30/24 21:00 02/03/24 09:13 Enoxaparin 80 Mg/0.8 Ml Syringe SUB-Q 75 mg Q12HR SAKSHI Administration Glucagon 1 mg 01/21/24 17:24 Glucagon For Inj 1 Mg Vial IM PRN PRN Hypoglycemia Protocol Glucose 15 gm 01/21/24 17:24 Glucose Oral Gel 15 Gm Of Glucse In 37.5 Gm Tube PO PRN PRN Hypoglycemia Protocol Dextrose 1,000 mls @ 100 mls/hr 01/21/24 17:24 Dextrose 5% 1,000 Ml IVPB PRN PRN Hypoglycemia Protocol Dextrose 1,000 mls @ 50 mls/hr 01/24/24 11:58 Dextrose 10% IV CONT .Q20H PRN if PN is interrupted Insulin Aspart 4 - 8 units 02/02/24 17:00 02/03/24 12:01 Insulin Aspart (*Bkc) 100 Units/Ml SUB-Q Not Given TIDWM SAKSHI Protocol Insulin Glargine 10 units 01/28/24 21:00 02/02/24 20:55 Insulin Glargine (*Bkc) 100 Units/Ml SUB-Q 10 units HS SAKSHI Administration Metoclopramide HCl 10 mg 01/29
[2024-02-03 17:00] LABS: Glucose Point of Care 168 mg/dl (65-105)
[2024-02-03] MEDS: INSULIN GLARGINE (*BKC) 100 UNITS/ML 10 UNITS SUB-Q (21:51)
[2024-02-03] MEDS: APIXABAN 5 MG TABLET PO (21:51)
[2024-02-03 22:14] LABS: Glucose Point of Care 135 mg/dl (65-105)
[2024-02-04] VITALS: PULSE 98
[2024-02-04] MEDS: METOCLOPRAMIDE HCL INJ 10 MG/2 ML VIAL IV PUSH ×2 (00:30→05:27)
[2024-02-04 04:00] VITALS: PULSE 96
[2024-02-04 05:28] VITALS: BP 122/52; PULSE 73; RESP 16; TEMP 36.3; O2SAT 99
[2024-02-04 06:18] LABS: Hematocrit 35.4 % (42.0-52.0); Hemoglobin 10.9 g/dL (14.0-18.0); Mean Corpuscular HGB Conc 30.8 g/dl (32-36); Mean Corpuscular Hemoglobin 26.8 pg (26-34); Mean Corpuscular Volume 87.2 fl (80-100); Mean Platelet Volume 10.7 fl (7.4-10.4); Platelet Count Result 284 k/mm3 (150-375); Red Blood Count 4.06 M/mm3 (4.6-6.20); Red Cell Distribution Width 13.4 % (11.5-14.5); White Blood Count 7.7 K/mm3 (4.5-10.0)
[2024-02-04 06:24] LABS: Alanine Aminotransferase 59 U/L (6-50); Albumin Level 3.1 g/dL (3.5-5.1); Alkaline Phosphatase 100 U/L (38-126); Anion Gap 5 mmol/L (4-12); Aspartate Amino Transferase 14 U/L (17-59); Bilirubin,Total 0.5 mg/dL (0.2-1.3); Blood Urea Nitrogen 15 mg/dL (9-20); Calcium 8.7 mg/dL (8.4-10.2); Carbon Dioxide 26 mmol/L (22-30); Chloride 102 mmol/L (98-107); Estimated CRCL calculation 78 ml/min; Estimated Glomerular Filt Rate > 60; Glucose 122 mg/dL (65-110); Magnesium 1.6 mg/dL (1.6-2.3); Potassium 3.8 mmol/L (3.4-5.0); Sodium 133 mmol/L (137-145)
[2024-02-04 08:00] VITALS: PULSE 88; O2SAT 99
[2024-02-04 08:32] LABS: Glucose Point of Care 108 mg/dl (65-105)
[2024-02-04] MEDS: PANTOPRAZOLE 40 MG TABLET PO (08:56)
[2024-02-04] MEDS: dilTIAZem HCL CD 120 MG CAP.24HR PO (08:56)
[2024-02-04] MEDS: APIXABAN 5 MG TABLET PO (08:56)
--- NOTE | 2024-02-04 10:20 | PM.DS ---
DS: Admitting Diagnosis Discharge Date 02/04/2024 Admitting Diagnosis Small-bowel obstruction, atrial fibrillation with rapid ventricular response, type 2 diabetes mellitus, chronic anticoagulation, GERD DS: Discharge Diagnosis Discharge Diagnosis (1) Small bowel obstruction: Code(s): K56.609 - Unspecified intestinal obstruction, unspecified as to partial versus complete obstruction Status: Acute (2) Atrial fibrillation with rapid ventricular response: Code(s): I48.91 - Unspecified atrial fibrillation Status: Acute (3) Type 2 diabetes mellitus: Code(s): E11.9 - Type 2 diabetes mellitus without complications Status: Chronic (4) Chronic anticoagulation: Code(s): Z79.01 - assisted (current) use of anticoagulants Status: Acute (5) Gastroesophageal reflux disease: Code(s): K21.9 - Gastro-esophageal reflux disease without esophagitis Status: Acute (6) Paroxysmal atrial fibrillation: Code(s): I48.0 - Paroxysmal atrial fibrillation Status: Acute DS: Summary Hospital Course Reason for hospitalization: patient was admitted for evidence of small-bowel obstruction Hospital Course: Patient had a long and complicated admission was initially admitted for abdominal pain nausea 0 with findings of small-bowel obstruction. This did not relieved with conservative measure of NG tube placement and bowel rest. Patient had a history of prior appendectomy and it appears that he had adhesions that caused bowel obstruction. plan was originally to take patient to the operating room but the evening before OR he developed AFib with RVR as he had been off of his oral Cardizem. Patient had to be placed on a Cardizem drip and moved to the IMU. He went to the operating room had partial small-bowel resection with anastomosis and returned to IMU to remain Cardizem drip. Postoperatively patient multiple days ileus remaining on IV only medication. It appeared that ileus was improving his NG tube was removed subsequently to be replaced. After more than a week of postoperative ileus surgery service decided to attempt metoclopramide which finally cause bowels to start working again patient was able to pass flatus bowel. Received additional to assist this process. The course of several days he was finally able to off IV Cardizem restart oral and has progressed his diet cautiously to full diet which he has tolerated well patient continues to pass stools, pass gas, ambulate well to the restroom. Patient and his refused SNF placement for therapy and he wanted to go home. From a surgical standpoint patient has been ready to go home for a couple days. this was further confirmed today and surgery removed anthony prior to patient discharge. Patient was discharged to home with his . Outpatient prescription for physical therapy was written and occupational therapy had signed off on his case. Patient and had also declined home health. Status at Discharge Cognitive/behavioral status at discharge: Awake alert oriented and extremely pleasant Functional status at discharge: uses cane/walker Overall status at discharge: patient is progressing back to baseline Time Spent with Patient Time attestation: Total time spent providing and/or coordinating discharge services: 45 minutes Time spent: Greater than 30 minutes Exam Narrative: GENERAL: Well-appearing, well-nourished, and in no acute distress. HEAD: Normocephalic, atraumatic. ENT:? Mucous membranes moist. CHEST: Clear to auscultation.? No respiratory distress. HEART: Regular rate and rhythm. ? Normal peripheral pulses. Sinus rhythm rate of 76 on patient monitor per my interpretation ABDOMEN: Soft, nontender, nondistended. at time of exam anthony were intact no sign of infection EXTREMITIES: Normal range of motion. No peripheral edema. SKIN: Warm dry normal color NEURO: Alert and oriented x3. PSYCH: Normal mood and affect
== END 2024-02-04 12:28 | disposition home or self-care (01) | DRG 330 ==
LOC: ANHED 15:36 → ANH3MEDSUR 15:55 → ANHIMU 01-22 18:31 → ANH3MED 02-01 17:27
PROVIDERS: Nurse Practitioner Family; Surgery; Admitting Provider Family Medicine; Emergency Provider Emergency Medicine; PCP Internal Medicine; Visit Provider Nurse Practitioner
PROC: 0DNB0ZZ Release Ileum, Open Approach (ICD-10-PCS; CPT 49000; principal; 2024-01-23 15:30)
DX: K56.50 Intestinal adhesions [bands], unspecified as to partial versus complete obstruction (principal); I48.92 Unspecified atrial flutter; K91.89 Other postprocedural complications and disorders of digestive system; K56.7 Ileus, unspecified; Z90.49 Acquired absence of other specified parts of digestive tract; K21.9 Gastro-esophageal reflux disease without esophagitis; K40.90 Unilateral inguinal hernia, without obstruction or gangrene, not specified as recurrent; E11.9 Type 2 diabetes mellitus without complications; E78.5 Hyperlipidemia, unspecified; I10 Essential (primary) hypertension; I48.0 Paroxysmal atrial fibrillation; M10.9 Gout, unspecified; Z98.41 Cataract extraction status, right eye; Z98.42 Cataract extraction status, left eye; Z79.82 Long term (current) use of aspirin; Z79.01 Long term (current) use of anticoagulants; Z79.84 Long term (current) use of oral hypoglycemic drugs
CPT/HCPCS: 36415; 74019; 74177; 80048; 80053; 82948; 83605; 83690; 83735; 84100; 84466; 84478; 85025; 85027; 85610; 85730; 88307; 93005; 96374; 97110; 97161; 97165; 97530; 99285; A9270; C9113; G0378; J0696; J1100; J1170; J1335; J1650; J1815; J1836; J1940; J2405; J2704; J2765; J3010; J3480; J7030; J7120; Q9967

== ENCOUNTER 2024-06-11 16:56 | Emergency (ER) | payer MEDICARE, SELFPAY ==
--- NOTE | ~2024-06-11 | CT_ITS ---
CT brain wo con Ordering provider: Abebe Lopez MD History: 88 years Male with . fall . Comparison: October 23, 2014 Technique: CT of the head without contrast. Radiation reduction technique utilized. The dose-length product was 681 mGy-cm. FINDINGS: BRAIN PARENCHYMA AND CSF SPACES: Mild leukoaraiosis and diffuse cortical atrophy. Mild atheromatous d isease. No midline shift, mass effect or hemorrhage. The brain parenchyma and CSF spaces are otherwise norm al. VISUALIZED PARANASAL SINUSES: Well aerated. MASTOIDS: Well aerated. BONES: The bones appear intact. SOFT TISSUES: Visualized nasopharynx is normal. Superficial soft tissues are normal. IMPRESSION: No acute intracranial findings. Reviewed, dictated and finalized at location A.
--- NOTE | ~2024-06-11 | XR_ITS ---
XR shoulder RT min 2V Ordering provider: Abebe Lopez History: . fall . Comparison: None. FINDINGS: BONES: No acute fracture or dislocation. JOINT SPACES: The acromioclavicular joint shows osteoarthritic changes... The glenohumeral joint show s osteoarthritic changes with osteophytes seen in the humeral head. SOFT TISSUES: Normal. IMPRESSION: No acute osseous abnormality right shoulder. Reviewed, dictated and finalized at location A.
--- NOTE | ~2024-06-11 | CT_ITS ---
CT cervical spine wo con Ordering provider: Abebe Lopez MD History: . fall . Comparison: None. Technique: CT of the cervical spine was performed without contrast. Sagittal and coronal reformatted images were also obtained and reviewed. Automated exposure control and iterative reconstruction herlinda hnique were employed. The dose-length product was 681.00 mGy-cm. FINDINGS: VERTEBRAE: No subluxation or acute fracture. The occipital condyles are intact. Reversal of lordosis . DISC SPACES: Narrowing of the disc spaces C4-C5, C5-C6, C6-C7 and C7-T1. Multilevel facet joint disea se. Multilevel uncovertebral joint osteoarthritic changes. Multilevel narrowing of the intervertebral foramina PARASPINOUS SOFT TISSUES: Normal. IMPRESSION: No acute osseous abnormality cervical spine. Reviewed, dictated and finalized at location A.
[2024-06-11 17:00] VITALS: PULSE 96; RESP 16; TEMP 36.8; O2SAT 98
[2024-06-11 17:58] VITALS: BP 123/48; PULSE 86; RESP 16; O2SAT 98
--- NOTE | 2024-06-11 18:05 | ED.HEATRA ---
HPI - Head Injury General Chief complaint: Head Injury Stated complaint: fall-hit head +thinners Time Seen by Provider: 06/11/24 17:57 Source: patient Mode of arrival: ambulatory Limitations: no limitations History of Present Illness HPI Narrative: Patient is an 88-year-old male who presents the ED with report of a fall. Patient reports he had a fall on Sunday night. He states he lost his balance and fell forward, hitting his head on a knob of his dresser. Sustained a small contusion to his R forehead, denied LOC. Denies dizziness or lightheadedness prior to the fall or since the fall. States he just wanted to be evaluated to make sure everything was okay. He is on Eliquis due to history of atrial fibrillation. he also complains of mild pain to his right shoulder, but states this has been improving since the fall. Denies neck or back pain, numbness, weakness, vision changes, chest pain, shortness of breath. Related Data Home Medications Medication Instructions Recorded Confirmed allopurinol 300 mg tablet 300 mg PO DAILY 11/24/19 03/09/24 metformin 500 mg tablet,extended 1,000 mg PO BID 11/24/19 03/09/24 release 24 hr omeprazole 20 mg capsule,delayed 20 mg PO DAILY 11/24/19 03/09/24 release simvastatin 40 mg tablet 40 mg PO HS 11/24/19 03/09/24 diltiazem HCl 120 mg 120 mg PO DAILY 10/02/23 03/09/24 capsule,extended release 12 hr dapagliflozin propanediol 10 mg 10 mg PO DAILY 01/21/24 03/09/24 tablet (Farxiga) ferrous sulfate 325 mg (65 mg 325 mg PO DAILY 01/21/24 03/09/24 iron) tablet,delayed release ranolazine 500 mg tablet,extended 500 mg PO BID 01/21/24 03/09/24 release,12 hr Allergies Allergy/AdvReac Type Severity Reaction Status Date / Time lisinopril AdvReac Swelling Verified 06/11/24 16:56 Review of Systems Review of Systems: CONSTITUTIONAL: Denies fever, chills, or sweats. CARDIOVASCULAR: Denies chest pain. RESPIRATORY: Denies dyspnea. GASTROINTESTINAL: Denies abdominal pain, nausea, vomiting MUSCULOSKELETAL: See HPI NEUROLOGIC: See HPI All systems reviewed & are unremarkable except as noted in HPI and below PMFSH Past Medical History Medical History Chronic anticoagulation Duodenal ulcer Gastroesophageal reflux disease Gout Hyperlipidemia Hypertension Osteoarthritis Paroxysmal atrial fibrillation Paroxysmal atrial flutter Type 2 diabetes mellitus Surgical History Surgical History History of appendectomy History of bilateral cataract extraction History of esophagogastroduodenoscopy (10/2023) History of exploratory laparotomy Exploratory laparotomy with adhesiolysis and ileal resection with [id number] ileal anastomosis 02/04/24 History of repair of ACL Right Family History Family History Sibling Acute myocardial infarction Cerebrovascular accident Diabetes mellitus Hypertension Mother Diabetes mellitus Social History Social History Social History: Surrogate medical decision maker: Ling [place], spouse. Code status: Full code. Smoking status: Never smoker Alcohol intake: never Substance use: never Substance use type: does not use Do You Feel Safe in your Home?: Yes Lack of Transportation: No Lack of Food: Never True Current Housing: I Have Housing Concerned About Future Housing: No Difficulty Paying Gas/Electric Bills: No Difficulty Paying for Meds: No Currently Unemployed: No Education: Master's Degree or Higher Difficulty w/ Childcare or Family Care: No Living arrangements: with family Additional living arrangements comments: Lives in [place]. He has three biological children. Occupation/Education: retired Additional occupation/education comments: Retired from [employer]
== END 2024-06-11 18:59 | disposition home or self-care (01) ==
PROVIDERS: Emergency Provider Physician Assistant; PCP Internal Medicine
DX: S00.83XA Contusion of other part of head, initial encounter (principal); S46.911A Strain of unspecified muscle, fascia and tendon at shoulder and upper arm level, right arm, initial encounter; I48.0 Paroxysmal atrial fibrillation; I48.92 Unspecified atrial flutter; M19.90 Unspecified osteoarthritis, unspecified site; I10 Essential (primary) hypertension; E11.9 Type 2 diabetes mellitus without complications; E78.5 Hyperlipidemia, unspecified; K21.9 Gastro-esophageal reflux disease without esophagitis; M10.9 Gout, unspecified; Z98.42 Cataract extraction status, left eye; Z98.41 Cataract extraction status, right eye; Z79.01 Long term (current) use of anticoagulants; Z79.84 Long term (current) use of oral hypoglycemic drugs; W01.190A Fall on same level from slipping, tripping and stumbling with subsequent striking against furniture, initial encounter
CPT/HCPCS: 70450; 72125; 73030; 99284

== ENCOUNTER 2024-10-13 13:45 | Outpatient (RCR) | payer MEDICARE, SELFPAY ==
--- NOTE | 2024-09-18 10:49 | OPREHPOC ---
Outpatient Therapy Plan of Care This is a Multidisciplinary Plan of Care that may contain components documented by all disciplines (PT, OT, and ST.) PT Problem 1 PT Problem #1 Knowledge Deficit PT Goal 1 Goal / Goal Update *indep with HEP Target Visit 8 PT Problem 2 PT Problem #2 Pain PT Goal 1 Goal / Goal Update 1* pt report pain rating of worst 7/10 2* LE Functional scale rating of 78% limitation in activity level 3* pt report able to tolerate standing/walking 10 minutes Target Visit 8 PT Problem 3 PT Problem #3 Impaired Strength PT Goal 1 Goal / Goal Update increase strength of R hip, to improve stability to hip joint 1* pt able to stand upright 2* pt able to perform 20 reps of mat strengthening 3* 5 reps sit/stand time of 24 seconds with use of both UE's Target Visit 8
--- NOTE | 2024-09-18 10:49 | PTOPEVAL1 ---
Assessment and note entered by Dilia Frost PT Evaluation Information Assessment Status Evaluation ICD-10 Condition Codes (PT) Pain in right hip M25.551,Difficulty Walking R26.2 ,R26.9,Weakness R53.1 Other ICD-10 Condition Codes ( OA R hipM16.12 PT) Subjective Information x ray R hip reports: mod-severe OA, subchondral changes in femoral head; activity: use cane for short distances and wheeled walker for longer distances; unable to do gardening and yard work; walking is difficult due to hip pain; stairs are hard, use the railing at home; does use weights for arm exercises. Reported Pain Level Pain Score Self Report Additional Pain Score Comments pain range in the past week: 0-9/10; sharp pain anterior hip increase pain: up/standing 5 minutes, stairs, in/ out car decrease pain: sit, rest not using any heat/ice, instruct on PRN use; is not taking any pain meds; is sleeping OK Assessment PT Clinical Summary Gene has the diagnosis of R hip moderate- severe OA. The dr has discussed THR with pt, but due to his medical issues, he would be a high risk surgery. LE Functional scale rating of 84% limitation in activity level. He reports standing /walking tolerance of 5 minutes due to pain. He is not doing any leg exercises. With the evaluation: supine R hip flexion and IR motions increase hip pain; 5 reps sit/stand with bilateral UE use in 29 seconds; tightness of hamstrings with SLR 45'; weakness of R LE and trunk. He uses a cane or wheeled walker for walking. Skilled PT services are indicated for modalities for pain control, therapeutic exercises to increase strength and education for HEP and pain management. Plan of Care Interventions Electrical Stimulation,Hot Pack/Cold Pack,Manual Therapy,Neuro Re-education,Patient/Caregiver Education,Therapeutic Activities,Therapeutic Exercise,Ultrasound PT Services Indicated Yes Treatment Frequency and 2x/wk for 8 visits Duration These treatments will address the objective and functional deficits as defined above. The patient will be advanced safely and appropriately in order for the patient to progress towards his/her prior level of function. Additional exercises will be introduced and as well as a comprehensive home exercise program upon discharge, if needed, ?to ensure carryover of functional gains achieved in the clinic. This treatment plan has been reviewed and agreement upon by the patient.
--- NOTE | 2024-10-09 13:07 | PCPTNOTE ---
Pt canceled appt today due to illness.
--- NOTE | 2024-10-13 15:32 | OPREHPOC ---
Outpatient Therapy Plan of Care This is a Multidisciplinary Plan of Care that may contain components documented by all disciplines (PT, OT, and ST.) PT Problem 1 PT Problem #1 Knowledge Deficit PT Goal 1 Goal / Goal Update *indep with HEP Target Visit 8 Progress Met PT Problem 2 PT Problem #2 Pain PT Goal 1 Goal / Goal Update 1* pt report pain rating of worst 7/10 2* LE Functional scale rating of 78% limitation in activity level 3* pt report able to tolerate standing/walking 10 minutes Target Visit 8 Progress Met PT Problem 3 PT Problem #3 Impaired Strength PT Goal 1 Goal / Goal Update increase strength of R hip, to improve stability to hip joint 1* pt able to stand upright 2* pt able to perform 20 reps of mat strengthening 3* 5 reps sit/stand time of 24 seconds with use of both UE's Target Visit 8 Progress Met
--- NOTE | 2024-10-13 15:32 | PTOPDC ---
Assessment and note entered by Honorio Barone, PT Evaluation Information Assessment Status Discharge ICD-10 Condition Codes (PT) Pain in right hip M25.551,Difficulty Walking R26.2 ,R26.9,Weakness R53.1 Other ICD-10 Condition Codes ( OA R hip M16.12 PT) Subjective Information Reports that today he is actually doing very well. States that pain is controlled and he has been getting around with his walker. Reported Pain Level Pain Score 0: Self Report Assessment PT Clinical Summary Patient has met all goals for therapy and is suitable for discharge at this time to [facility]. Patient has shown excellent progress in hip ROM, strength, and functional mobility over the course of therapy. Plan of Care PT Services Indicated Yes
== END 2024-10-14 10:40 | disposition home or self-care (01) ==
LOC: ANHPT 13:45
PROVIDERS: PCP Internal Medicine; Visit Provider Orthopaedic Surgery
DX: M16.11 Unilateral primary osteoarthritis, right hip (principal)
CPT/HCPCS: 97014; 97110; 97140; 97161; 97530; G0283

== ENCOUNTER 2024-11-07 09:58 | Inpatient (IN) | payer MEDICARE, OTHER, SELFPAY ==
[2024-11-07] VITALS (9 sets, daily range): BP systolic 115–162; BP diastolic 56–82; PULSE 75–95; RESP 14–18; TEMP 36.6; O2SAT 100
--- NOTE | ~2024-11-07 | XR_ITS ---
EXAMINATION: XR chest 2V DATE: 11/07/2024 13:31 INDICATION: Chest pain. TECHNIQUE: Frontal and lateral views of the chest were obtained. COMPARISON: Chest single view 09/16/2023 FINDINGS: There is mild atelectasis at the lung bases. No pleural effusion or pneumothorax. The heart size is normal. IMPRESSION: 1. Mild atelectasis at the lung bases. Reviewed, dictated and finalized at location A. RCALENDER OPERATOR
--- NOTE | 2024-11-07 13:13 | ECG_ITS ---
Test Date: 2024-11-07 13:44:11 Measurements Intervals [place] Rate: 81 P: 63 [place]: 164 QRS: 18 QRSD: 105 T: 66 QT: 372 QTc: 433 Interpretive Statements SINUS RHYTHM MARKED T-WAVE ABNORMALITY, CONSIDER ANTERIOR ISCHEMIA [-0.5+ mV T WAVE IN V3/V4] No previous ECG available for comparison Electronically Signed On 11-10-2024 15:05:21 LEAN COACH by Juanito Short M.D.
--- NOTE | 2024-11-07 13:21 | ED.GENADULT ---
HPI - General Adult General Chief complaint: Unspecified Stated complaint: acid reflux Time Seen by Provider: 11/07/24 12:34 History of Present Illness HPI narrative: 89-year-old male with a past medical history including gastroesophageal reflux disease, paroxysmal AFib on chronic anticoagulation with Eliquis, type 2 diabetes, hypertension. Today patient presents to the emergency room with chief complaint of persistent GERD like symptoms for last 2 weeks. Patient states he has intermittent GERD with burning sensation in his epigastrium and retrosternally in his esophagus. sour taste and sore throat. He describes his symptoms very classically and states that he is having the exact same symptoms of his normal GERD although they are now persistent. His primary care provider as referred him to a GI doctor but they are not able to see him till next week. Patient came to the ER for evaluation. Denies any left-sided chest discomfort, back pain, fever, chills, lower abdominal pain. Was otherwise in his normal state of health and took Tums and omeprazole home without any significant relief of his symptoms. He takes omeprazole 20 mg daily and was told to updated to 40 mg b.i.d. by his PCP last week. Related Data Home Medications ?Medication ?Instructions ?Recorded ?Confirmed ?Last Taken ?Type allopurinol 300 mg tablet 300 mg PO DAILY 11/24/19 03/09/24 10/02/23 History metformin 500 mg tablet,extended 1,000 mg PO BID 11/24/19 03/09/24 10/14/23 History release 24 hr omeprazole 20 mg capsule,delayed 20 mg PO DAILY 11/24/19 03/09/24 10/02/23 History release diltiazem HCl 120 mg 120 mg PO DAILY 10/02/23 03/09/24 10/15/23 History capsule,extended release 12 hr dapagliflozin propanediol 10 mg 10 mg PO DAILY 01/21/24 03/09/24 Unknown History tablet (Farxiga) ferrous sulfate 325 mg (65 mg 325 mg PO DAILY 01/21/24 03/09/24 Unknown History iron) tablet,delayed release ranolazine 500 mg tablet,extended 500 mg PO BID 01/21/24 03/09/24 Unknown History release,12 hr ezetimibe 10 mg tablet 10 mg PO DAILY 08/20/24 Unknown History multivitamin 1 tablet PO DAILY 08/20/24 Unknown History Allergies Allergy/AdvReac Type Severity Reaction Status Date / Time lisinopril AdvReac Swelling Verified 08/20/24 11:57 Review of Systems Review of Systems: as reviewed above in [facility] Past Medical History Medical History Hypertension Paroxysmal atrial flutter Osteoarthritis Gastroesophageal reflux disease Chronic anticoagulation Paroxysmal atrial fibrillation Type 2 diabetes mellitus Duodenal ulcer Hyperlipidemia Gout Surgical History Surgical History History of bowel resection History of exploratory laparotomy Exploratory laparotomy with adhesiolysis and ileal resection with [id number] ileal anastomosis 02/04/24 History of esophagogastroduodenoscopy (10/2023) History of bilateral cataract extraction History of appendectomy History of repair of ACL Right Family History Family History Sibling Acute myocardial infarction Cerebrovascular accident Diabetes mellitus Hypertension Mother Diabetes mellitus Social History Social History Social History: Surrogate medical decision maker: Ling Dallas, spouse. Code status: Full code. Smoking status: Never smoker Alcohol intake: never Substance use: never Substance use type: does not use Do You Feel Safe in your Home?: Yes Lack of Transportation: No Lack of Food: Never True Current Housing: I Have Housing Concerned About Future Housing: No Difficulty Paying Gas/Electric Bills: No Difficulty Paying for Meds: No Currently Unemployed: No Education: Master's Degree or Higher Difficulty w/ Childcare or Family Care: No Living arrangements: with family Additional living arrangements comments: Lives in [place]. He has three biological children. Occupation/Education: retired Additional occupation/education comments: Retired from [employer]. Spiritual care concerns: No Exam Narrative: GENERAL: [Well-appearing, well-nourished, and in no acute distress.] HEAD: [Normocephalic, atraumatic.] EYES: [PERRLA and EOMI.] ENT: Nares clear, no rhinorrhea or epistaxis. Mucous membranes moist. NECK: Supple. CHEST: [Clear to auscultation. No respiratory distress.] HEART: [Regular rate and rhythm]. No murmur heard. [Normal peripheral pulses.] ABDOMEN: [Soft, nondistended], [nontender], [No rigidity or guarding] EXTREMITIES: Normal range of motion. [No edema.] SKIN: Warm, dry, no rash. NEURO: [No focal deficits]. Alert and oriented [x3.] PSYCH: [Normal mood and affect.] Course Vital Signs Vital signs: Vital Signs Temperature 36.6 C 11/07/24 10:00 Pulse Rate 95 11/07/24 10:00 Respiratory Rate 16 11/07/24 10:00 Blood Pressure 162/82 H 11/07/24 10:00 Pulse Oximetry 100 11/07/24 10:00 Temperature 36.6 C 11/07/24 10:00 Pulse Rate 78 11/07/24 17:46 Respiratory Rate 17 11/07/24 17:46 Blood Pressure 115/70 11/07/24 17:46 Pulse Oximetry 100 11/07/24 17:46 Medical Decision Making [facility] Narrative Medical decision making narrative: 89-year-old male presenting for evaluation of persistent acid reflux type symptoms including retrosternal chest discomfort with burning sensation, epigastric burning sensation, sore throat. He states it feels very similar to his normal GERD although now persistent for last 2 weeks. Has not been seen by GI or had any recent endoscopies. Is scheduled to see GI next week. Took Tums and omeprazole home without any relief of his symptoms. Takes omeprazole b.i.d. and his update his dose to 40 mg b.i.d. recently per his PCP. He is slightly hypertensive at 162/82 but no tachycardia, fever, hypoxia. He is clear breath sounds, strong symmetric pulses. Overall very well-appearing. Given his longstanding GERD history suspicion presently is for gastroesophageal reflux disease, although he has cardiac history and we need to evaluate for any kind of source of other retrosternal chest discomfort such as ACS or pneumonia. Low suspicion for the above. Has longstanding GERD also makes him high risk for potential strictures versus cancerous process but this will be evaluated on outpatient basis with GI. Cardiac workup was ordered including chest x-ray, EKG, troponin, CBC, CMP. He was given Maalox and famotidine and re-evaluated. Patient's workup shows no leukocytosis or anemia. Elevated troponin 1.20. EKG showing deep inverted T-waves in V3 and V4. Unremarkable electrolyte profile. Patient was re-evaluated had resolution of his chest discomfort and burning pain but given his troponin and EKG findings we did speak to the on-call photonics engineering technologist. I discussed the patient's care, clinical assessment, EKG findings and elevated troponin my suspicions that he is having an occlusive myocardial infarction and not GERD. patient was started on heparin with a heparin drip and bolus. His last Eliquis use was yesterday morning. Dr. Barakat from Interventional Cardiology agreed to patient's care and will plan for catheterization in the morning. Patient is presently symptom free. repeat EKG shows no changes to his ST segments, persistent T-wave inversions, elevated troponin. He is accepted to the intermediate care unit after I spoke to the hospitalist being covered by the [facility] provider Rena. patient will remain on continuous pulse oximetry and shelter monitor and a heparin infusion at this time. Patient was agreeable to the plan of care going forward. Medical Records Medical records reviewed: Yes I reviewed the external patient's medical records. Vital Signs Vital Signs: Vital Signs Temperature 36.6 C 11/07/24 10:00 Pulse Rate 95 11/07/24 10:00 Respiratory Rate 16 11/07/24 10:00 Blood Pressure 162/82 H 11/07/24 10:00 Pulse Oximetry 100 11/07/24 10:00 Temperature 36.6 C 11/07/24 10:00 Pulse Rate 78 11/07/24 17:46 Respiratory Rate 17 11/07/24 17:46 Blood Pressure 115/70 11/07/24 17:46 Pulse Oximetry 100 11/07/24 17:46 Lab Data Lab results reviewed: Yes I reviewed the patient's lab results. 11/07/24 14:07 11/07/24 14:07 Labs: Lab Results 11/07/24 Range/Units 14:07 WBC 6.3 (4.5-10.0) K/mm3 RBC 4.89 (4.6-6.20) M/mm3 Hgb 13.7 L (14.0-18.0) g/dL Hct 43.2 (42.0-52.0) % MCV 88.3 (80-100) fl MCH 28.0 (26-34) pg MCHC 31.7 L (32-36) g/dl RDW 14.4 (11.5-14.5) % Plt Count 160 (150-375) k/mm3 MPV 10.2 (7.4-10.4) fl Immature Gran % (Auto) 0.5 (0-0.5) % Neut % (Auto) 66.5 (45.5-73.1) % Lymph % (Auto) 19.2 (18.3-44.2) % [place] % (Auto) 9.4 H (2.6-8.5) % Eos % (Auto) 3.6 (0-4.4) % Baso % (Auto) 0.8 (0.2-1.2) % Lymph # (Auto) 1.21 (0.9-3.2) K/mm3 [place] # (Auto) 0.6 (0.1-0.6) K/mm3 Eos # (Auto) 0.2 (0-0.3) K/mm3 Baso # (Auto) 0.1 (0.0-0.1) K/mm3 Abs Immat Gran (auto) 0.03 (0.00-0.031) K/mm3 Absolute Neuts (auto) 4.2 (1.3-6.7) K/mm3 Absolute Nucleated RBC 0.000 (0.0-0.012) K/mm3 Nucleated RBC % 0.0 (0.0-0.2) % PT 14.0 (11.1-14.7) Seconds INR 1.0 APTT 33.3 (22.3-36.8) Seconds Sodium 137 (137-145) mmol/L Potassium 4.1 (3.4-5.0) mmol/L Chloride 104 (98-107) mmol/L Carbon Dioxide 34 H (22-30) mmol/L Anion Gap -1 L (4-12) mmol/L BUN 22 H (9-20) mg/dL Creatinine 0.80 (0.7-1.3) mg/dL Estim Creat Clear Calc 58 ml/min Estimated GFR > 60 (59 - ) Glucose 131 H (65-110) mg/dL Calcium 9.6 (8.4-10.2) mg/dL Total Bilirubin 0.5 (0.2-1.3) mg/dL AST 27 (17-59) U/L ALT 20 (6-50) U/L Alkaline Phosphatase 70 (38-126) U/L Troponin I 1.210 H* (0.000-0.034) ng/mL Total Protein 7.0 (6.3-8.2) g/dL Albumin 4.2 (3.5-5.1) g/dL Lipase 349 H (23-300) U/L Imaging Data Attestation: I personally reviewed and interpreted this imaging study as follows: My impression: Impressions Chest X-Ray 11/07/24 13:33 IMPRESSION: 1. Mild atelectasis at the lung bases. ECG Data EKG #1: Attestation: I personally reviewed and interpreted this ECG as follows: ECG completion date: 11/07/24 ECG completion time: 13:44 Prior ECG tracings: available for review Interpretation: T-wave inversions, lead V3 and V4, no ST segment elevations or depressions otherwise. Regular rate rhythm an axis. Compared to previous EKG these are new T-wave inversions. QRS of 105, QTC 433, LA interval 164 milliseconds. Sinus rhythm, concern for anterior ischemia based on T-wave findings. Critical Care Time Critical Care Time Critical Care Time: Yes Total Critical Care Time: 40 Discharge Plan Discharge Clinical Impression: Acute non-ST elevation myocardial infarction (NSTEMI), Atypical chest pain Patient Disposition: Still a Patient Condition: Guarded Prognosis Time of Disposition: 15:49
[2024-11-07] MEDS: FAMOTIDINE 20 MG/2 ML VIAL IV PUSH ×2 (14:12→21:21)
[2024-11-07] MEDS: MAG HYDROX/AL HYDROX/SIMETH 30 ML UDC PO (14:12)
[2024-11-07 14:43] LABS: Basophils Absolute Auto 0.1 K/mm3 (0.0-0.1); Basophils Percent Auto 0.8 % (0.2-1.2); Eosinophils Absolute Auto 0.2 K/mm3 (0-0.3); Eosinophils Percent Auto 3.6 % (0-4.4); Hematocrit 43.2 % (42.0-52.0); Hemoglobin 13.7 g/dL (14.0-18.0); Immature Granulocyte Absolute 0.03 K/mm3 (0.00-0.031); Immature Granulocyte Percent A 0.5 % (0-0.5); Lymphocytes Absolute Auto 1.21 K/mm3 (0.9-3.2); Lymphocytes Percent Auto 19.2 % (18.3-44.2); Mean Corpuscular HGB Conc 31.7 g/dl (32-36); Mean Corpuscular Volume 88.3 fl (80-100); Mean Platelet Volume 10.2 fl (7.4-10.4); Monocytes Absolute Auto 0.6 K/mm3 (0.1-0.6); Monocytes Percent Auto 9.4 % (2.6-8.5); Neutrophils Absolute Auto 4.2 K/mm3 (1.3-6.7); Neutrophils Percent Auto 66.5 % (45.5-73.1); Platelet Count Result 160 k/mm3 (150-375); Red Blood Count 4.89 M/mm3 (4.6-6.20); Red Cell Distribution Width 14.4 % (11.5-14.5); White Blood Count 6.3 K/mm3 (4.5-10.0)
[2024-11-07 14:52] LABS: Alanine Aminotransferase 20 U/L (6-50); Albumin Level 4.2 g/dL (3.5-5.1); Alkaline Phosphatase 70 U/L (38-126); Anion Gap -1 mmol/L (4-12); Aspartate Amino Transferase 27 U/L (17-59); Bilirubin,Total 0.5 mg/dL (0.2-1.3); Blood Urea Nitrogen 22 mg/dL (9-20); Calcium 9.6 mg/dL (8.4-10.2); Carbon Dioxide 34 mmol/L (22-30); Chloride 104 mmol/L (98-107); Estimated CRCL calculation 58 ml/min; Estimated Glomerular Filt Rate > 60; Glucose 131 mg/dL (65-110); Lipase 349 U/L (23-300); Potassium 4.1 mmol/L (3.4-5.0); Sodium 137 mmol/L (137-145)
[2024-11-07 14:53] LABS: Partial Thromboplastin Time 33.3 Seconds (22.3-36.8)
[2024-11-07] MEDS: HEPARIN SODIUM 5,000 UNITS/ML VIAL 4000 UNITS IV PUSH (15:57)
[2024-11-07] MEDS: HEPARIN SOD/D5W 100 UNITS/ML 25,000 UNITS/250 ML BAG 9 UNITS IV CONT (15:58)
--- NOTE | 2024-11-07 16:45 | PM.IMHP ---
H&P: HPI History of Present Illness Date/Time: 11/07/24 18:00 Chief Complaint: ?Acid reflux.? 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 The patient provides the following history. He gives a 2 week history of intermittent burning sensations in the stomach radiating into the chest with a sour taste and mild sore throat. This is typical of his GERD symptoms however it has been persistent which is unusual for him. He recently saw his primary care provider and was referred to GI and was told to increase his omeprazole from 20 mg daily to 40 mg twice daily in the interim. Today he developed aching in his left arm and he decided to come in for evaluation. He denies syncope, near syncope, exertional chest pain, pleuritic pain, palpitations, nausea, bloating, belching, sweats, melena, and hematochezia. He is on apixaban for paroxysmal atrial fibrillation and denies aspirin and NSAID use. No known history of coronary artery disease but he is on ranolazine and has been on that for a couple of years. Cardiac catheterization at least 10 to 12 years ago was reportedly clear and he had stress test a couple years ago which was reportedly okay as well. In the ED: He was afebrile on arrival with stable vital signs. Labs were significant for an initial troponin of 1.210 hemoglobin 13.7, carbon dioxide 34, BUN 22, creatinine 0.80, glucose 131, lipase 349. EKG shows sinus rhythm with T-wave inversions in leads V2 to V4. Chest x-ray showed mild atelectasis at the lung bases. He was given famotidine, GI cocktail, and nitroglycerin with improvement. Due to his elevated troponins and T-wave abnormalities, he is being admitted to IMU for close monitoring and Cardiology consultation. Review of Systems Review of Systems: 12 systems were reviewed and are negative except for as per HPI. [facility] Past Medical History Medical History (Updated 11/07/24 @ 22:44 by Rena Preciado PA-C) Chronic anticoagulation Hypertension Paroxysmal atrial flutter Osteoarthritis Gastroesophageal reflux disease Chronic anticoagulation Paroxysmal atrial fibrillation Type 2 diabetes mellitus Duodenal ulcer Hyperlipidemia Gout Surgical History Surgical History (Updated 11/07/24 @ 22:44 by Rena Preciado PA-C) History of bowel resection (02/04/24) Exploratory laparotomy with adhesiolysis an ileal resection with [id number] ileal anastomosis History of esophagogastroduodenoscopy (10/2023) History of bilateral cataract extraction History of appendectomy History of repair of ACL Right Family History Family History Sibling Acute myocardial infarction Cerebrovascular accident Diabetes mellitus Hypertension Mother Diabetes mellitus Social History Social History Social History: Surrogate medical decision maker: Ling Dallas, spouse. Code status: Full code. Smoking status: Never smoker Alcohol intake: never Substance use: never Substance use type: does not use Do You Feel Safe in your Home?: Yes Lack of Transportation: No Lack of Food: Never True Current Housing: I Have Housing Concerned About Future Housing: No Difficulty Paying Gas/Electric Bills: No Difficulty Paying for Meds: No Currently Unemployed: No Education: Master's Degree or Higher Difficulty w/ Childcare or Family Care: No Living arrangements: with family Additional living arrangements comments: Lives in [place]. He has three biological children. Occupation/Education: retired Additional occupation/education comments: Retired from [employer]. Spiritual care concerns: No Meds Home Medications and Allergies Home Medications ?Medication ?Instructions ?Recorded ?Confirmed ?Type allopurinol 300 mg tablet 300 mg PO DAILY 11/24/19 03/09/24 History metformin 500 mg tablet,extended 1,000 mg PO BID 11/24/19 03/09/24 History release 24 hr omeprazole 20 mg capsule,delayed 20 mg PO DAILY 11/24/19 03/09/24 History release diltiazem HCl 120 mg 120 mg PO DAILY 10/02/23 03/09/24 History capsule,extended release 12 hr dapagliflozin propanediol 10 mg 10 mg PO DAILY 01/21/24 03/09/24 History tablet (Farxiga) ferrous sulfate 325 mg (65 mg 325 mg PO DAILY 01/21/24 03/09/24 History iron) tablet,delayed release ranolazine 500 mg tablet,extended 500 mg PO BID 01/21/24 03/09/24 History release,12 hr apixaban 5 mg tablet (Eliquis) 5 mg PO Q12H #14 tabs 02/04/24 03/09/24 Rx ezetimibe 10 mg tablet 10 mg PO DAILY 08/20/24 History multivitamin 1 tablet PO DAILY 08/20/24 History Allergies Allergy/AdvReac Type Severity Reaction Status Date / Time lisinopril AdvReac Swelling Verified 08/20/24 11:57 Vital Signs Vital Signs - 24 hr 11/07/24 10:00 Temperature 97.9 F Pulse Rate 95 Respiratory Rate 16 Blood Pressure 162/82 H Pulse Oximetry 100 Exam Narrative: General: Well-developed, nontoxic-appearing gentleman sitting up in bed in no acute distress. He appears to be younger than his stated age. Weight: 73 kg. BMI: 21.8. HEENT: PERRL, EOMI. Sclera anicteric. Oral mucosa moist. Neck: Supple. Respiratory: Lungs are clear to auscultation bilaterally. Cardiovascular: Regular rate and rhythm with S1-S2. Chest: No tenderness to palpation over the chest wall. Gastrointestinal: Abdomen is soft, nontender, and nondistended with positive bowel sounds. No guarding or rebound tenderness. Skin: Warm and dry. Extremities: No cyanosis, clubbing, or edema. Radial and pedal pulses intact. Neurological: Alert. Cranial nerves 2-12 are grossly intact. No gross focal deficits to casual conversation. Psychiatric: Pleasant and cooperative with normal mood and affect. Judgment and insight intact. H&P: Results Labs Labs: Short CBC 11/07/24 Range/Units 14:07 WBC 6.3 (4.5-10.0) K/mm3 Hgb 13.7 L (14.0-18.0) g/dL Hct 43.2 (42.0-52.0) % Plt Count 160 (150-375) k/mm3 BMP 11/07/24 14:07 Sodium 137 Potassium 4.1 Chloride 104 Carbon Dioxide 34 H BUN 22 H Creatinine 0.80 Glucose 131 H Calcium 9.6 Cardiac Enzymes 11/07/24 Range/Units 14:07 Troponin I 1.210 H* (0.000-0.034) ng/mL Liver Function 11/07/24 Range/Units 14:07 Total Bilirubin 0.5 (0.2-1.3) mg/dL AST 27 (17-59) U/L ALT 20 (6-50) U/L Alkaline Phosphatase 70 (38-126) U/L Albumin 4.2 (3.5-5.1) g/dL Impressions Chest X-Ray 11/07/24 13:33 IMPRESSION: 1. Mild atelectasis at the lung bases. Assessment and Plan Assessment and plan (1) Non-ST elevation myocardial infarction (NSTEMI): Code(s): I21.4 - Non-ST elevation (NSTEMI) myocardial infarction Status: Acute (2) Gastroesophageal reflux disease: Code(s): K21.9 - Gastro-esophageal reflux disease without esophagitis Status: Acute (3) Paroxysmal atrial fibrillation: Code(s): I48.0 - Paroxysmal atrial fibrillation Status: Acute (4) Chronic anticoagulation: Code(s): Z79.01 - FDC (current) use of anticoagulants Status: Acute (5) Type 2 diabetes mellitus: Code(s): E11.9 - Type 2 diabetes mellitus without complications Status: Chronic (6) Hypertension: Code(s): I10 - Essential (primary) hypertension Status: Acute Plan The patient presented to the emergency department for evaluation of acid reflux as detailed in HPI. Labs, imaging, EKG, and all reports were personally reviewed. He describes classic GERD symptoms and given his history of duodenal ulcers GI has been consulted for recommendations. Incidentally an EKG and troponins were drawn on the patient upon arrival and he was found to have T-wave inversions in anterior leads and a modestly elevated troponin. His symptoms actually improved with nitroglycerin and he was started on a heparin drip with plans for cardiac catheterization tomorrow per Cardiology. He will be monitored closely in the IMU. Trend troponins to peak. Continue PPI. Hold apixaban as he is on heparin drip. Blood pressures were reviewed and they are stable. Hold metformin due to plans for cardiac catheterization. Initiate sliding scale insulin, Accu-Cheks, and hypoglycemic protocol. The rest of his home medications will be reviewed and resumed as appropriate. Findings and treatment plan were discussed with the patient. Questions were solicited and answered to satisfaction. The patient's medical management will be taken over by the hospitalist team in a.m. Quality VTE Prophylaxis VTE prophylaxis: pharmacologic ordered (currently on a heparin drip) Hospitalist [facility] Advance Care Plan I have confirmed that the patient's Advanced Care Plan is present, code status is documented, or surrogate decision maker is listed in patient medical record.: Yes Medication Reconciliation I have utilized all available resources to obtain, update and review the patients current medications (includes all prescriptions, OTC, herbals, cannabis, and nutritional supplements).: Yes
--- NOTE | 2024-11-07 18:42 | ECG_ITS ---
Test Date: 2024-11-07 18:46:05 Measurements Intervals [place] Rate: 77 P: 59 PA: 158 QRS: 7 QRSD: 108 T: 36 QT: 395 QTc: 448 Interpretive Statements SINUS RHYTHM MARKED T-WAVE ABNORMALITY, CONSIDER ANTERIOR ISCHEMIA [-0.5+ mV T WAVE IN V3/V4] Compared to ECG 11/07/2024 13:44:11 No significant changes Electronically Signed On 11-11-2024 17:48:19 MANUFACTURING BUSINESS ANALYST by Nathaniel Cade M.D.
[2024-11-08] VITALS (15 sets, daily range): BP systolic 105–134; BP diastolic 45–61; PULSE 68–104; RESP 15–20; TEMP 36.4–37.1; O2SAT 97–100; BMI 21.3
[2024-11-08 00:06] LABS: INR 1.1; Prothrombin Time 14.4 Seconds (11.1-14.7)
[2024-11-08 00:11] LABS: Partial Thromboplastin Time 162.9 Seconds (22.3-36.8)
--- NOTE | 2024-11-08 01:07 | ADMGEN ---
This patient, Gene Yen, was admitted to IMU Room 210-01. Patient/family oriented to hospital policies and general routines including ID bracelet, bed and alarms, visiting hours, pain management, procedures, bathroom and other care routines, personal items, smoking policy, room service/diet, and visiting hours. Information on how to activate the Rapid Response Team has been discussed. Patient/Family are encouraged to report perceived risks to care and to ask questions if they do not understand what they are told or what they should do.
[2024-11-08 06:48] LABS: Basophils Absolute Auto 0.1 K/mm3 (0.0-0.1); Eosinophils Absolute Auto 0.3 K/mm3 (0-0.3); Eosinophils Percent Auto 4.3 % (0-4.4); Hematocrit 40.4 % (42.0-52.0); Hemoglobin 12.8 g/dL (14.0-18.0); Immature Granulocyte Absolute 0.02 K/mm3 (0.00-0.031); Immature Granulocyte Percent A 0.3 % (0-0.5); Lymphocytes Absolute Auto 1.39 K/mm3 (0.9-3.2); Lymphocytes Percent Auto 22.8 % (18.3-44.2); Mean Corpuscular HGB Conc 31.7 g/dl (32-36); Mean Corpuscular Hemoglobin 27.9 pg (26-34); Mean Corpuscular Volume 88.2 fl (80-100); Mean Platelet Volume 10.5 fl (7.4-10.4); Monocytes Absolute Auto 0.6 K/mm3 (0.1-0.6); Monocytes Percent Auto 9.7 % (2.6-8.5); Neutrophils Absolute Auto 3.8 K/mm3 (1.3-6.7); Neutrophils Percent Auto 61.9 % (45.5-73.1); Platelet Count Result 167 k/mm3 (150-375); Red Blood Count 4.58 M/mm3 (4.6-6.20); Red Cell Distribution Width 14.3 % (11.5-14.5); White Blood Count 6.1 K/mm3 (4.5-10.0)
[2024-11-08 07:11] LABS: Anion Gap -1 mmol/L (4-12); Blood Urea Nitrogen 20 mg/dL (9-20); Calcium 9.4 mg/dL (8.4-10.2); Carbon Dioxide 31 mmol/L (22-30); Chloride 105 mmol/L (98-107); Estimated CRCL calculation 51 ml/min; Estimated Glomerular Filt Rate > 60; Glucose 129 mg/dL (65-110); Potassium 4.1 mmol/L (3.4-5.0); Sodium 135 mmol/L (137-145)
[2024-11-08] MEDS: HEPARIN SODIUM 5,000 UNITS/ML VIAL 4000 UNITS IV PUSH (07:25)
--- NOTE | 2024-11-08 07:49 | P.PNIM_ITS ---
Progress Note: A&P Assessment and Plan (1) Non-ST elevation myocardial infarction (NSTEMI): Code(s): I21.4 - Non-ST elevation (NSTEMI) myocardial infarction Status: Acute (2) Gastroesophageal reflux disease: Code(s): K21.9 - Gastro-esophageal reflux disease without esophagitis Status: Acute (3) Paroxysmal atrial fibrillation: Code(s): I48.0 - Paroxysmal atrial fibrillation Status: Acute (4) Chronic anticoagulation: Code(s): Z79.01 - half-way (current) use of anticoagulants Status: Acute (5) Type 2 diabetes mellitus: Code(s): E11.9 - Type 2 diabetes mellitus without complications Status: Chronic (6) Hypertension: Code(s): I10 - Essential (primary) hypertension Status: Acute Plan The patient presented to the emergency department for evaluation of acid reflux as detailed in HPI. Labs, imaging, EKG, and all reports were personally reviewed. He describes classic GERD symptoms and given his history of duodenal ulcers GI has been consulted for recommendations. Incidentally an EKG and troponins were drawn on the patient upon arrival and he was found to have T-wave inversions in anterior leads and a modestly elevated troponin. His symptoms actually improved with nitroglycerin and he was started on a heparin drip with plans for cardiac catheterization tomorrow per Cardiology. He will be monitored closely in the IMU. Trend troponins to peak. Continue PPI. Hold apixaban as he is on heparin drip. Blood pressures were reviewed and they are stable. Hold metformin due to plans for cardiac catheterization. Initiate sliding scale insulin, Accu-Cheks, and hypoglycemic protocol. The rest of his home medications will be reviewed and resumed as appropriate. Findings and treatment plan were discussed with the patient. Questions were solicited and answered to satisfaction. The patient's medical management will be taken over by the hospitalist team in a.m. Subjective Date/time seen: 11/08/24 07:49 Interval history: Patient has a past medical history of acid reflux. Recently he GI increased omeprazole 20-40 mg twice daily. The interim he developed aching pain in his left arm and decided to get evaluated in ED. due to elevation of the troponin and T wave abnormalities in the EKG cardiology has been consulted. Patient started on heparin drip and possible cardiac catheterization today. Of note patient takes Eliquis for AFib. Review of Systems Review of Systems: 12 systems were reviewed and are negativ e except for as per HPI. Exam Narrative: General: Well-developed, nontoxic-appearing gentleman sitting up in bed in no acute distress. He appears to be younger than his stated age. Weight: 73 kg. BMI: 21.8. HEENT: PERRL, EOMI. Sclera anicteric. Oral mucosa moist. Neck: Supple. Respiratory: Lungs are clear to auscultation bilaterally. Cardiovascular: Regular rate and rhythm with S1-S2. Chest: No tenderness to palpation over the chest wall. Gastrointestinal: Abdomen is soft, nontender, and nondistended with positive bowel sounds. No guarding or rebound tenderness. Skin: Warm and dry. Extremities: No cyanosis, clubbing, or edema. Radial and pedal pulses intact. Neurological: Alert. Cranial nerves 2-12 are grossly intact. No gross focal deficits to casual conversation. Psychiatric: Pleasant and cooperative with normal mood and affect. Judgment and insight intact. Objective Data Vital Signs Vital Signs: Vital Signs - 24 hr 11/07/24 10:00 11/07/24 16:16 11/07/24 16:30 Temperature 97.9 F Pulse Rate 95 79 78 Respiratory Rate 16 14 16 Blood Pressure 162/82 H 136/69 Pulse Oximetry 100 100 100 Oxygen Delivery 11/07/24 16:31 11/07/24 16:45 11/07/24 17:01 Temperature Pulse Rate 78 90 83 Respiratory Rate 15 18 15 Blood Pressure 138/67 133/66 Pulse Oximetry 100 100 100 Oxygen Delivery 11/07/24 17:16 11/07/24 17:46 11/07/24 23:33 Temperature Pulse Rate 75 78 89 Respiratory Rate 15 17 18 Blood Pressure 135/74 115/70 123/56 L Pulse Oximetry 100 100 100 Oxygen Delivery 11/08/24 00:00 11/08/24 00:00 11/08/24 00:00 Temperature 98.3 F Pulse Rate 77 93 Respiratory Rate 18 Blood Pressure 134/57 L Pulse Oximetry 99 Oxygen Delivery Room Air 11/08/24 02:00 11/08/24 04:00 11/08/24 04:00 Temperature 98.0 F Pulse Rate 100 77 72 Respiratory Rate 15 Blood Pressure 118/45 L Pulse Oximetry 100 Oxygen Delivery 11/08/24 04:00 Temperature Pulse Rate Respiratory Rate Blood Pressure Pulse Oximetry Oxygen Delivery Room Air Intake/Output Intake/Output: Intake & Output 11/05/24 11/06/24 11/07/24 11/08/24 23:59 23:59 23:59 23:59 Intake Total 75 Output Total 400 Balance -325 Meds/Results Medications: Active Medications Generic Name Dose Route Start Last Admin Trade Name Freq PRN Reason Stop Dose Admin Acetaminophen 650 mg 11/07/24 22:48 Acetaminophen 325 Mg Tablet PO Q6H PRN Mild Pain (1-3) or Fever Dextrose 12.5 gm 11/07/24 22:49 Dextrose 50% 25 Gm/50 Ml Syringe IV PUSH PRN PRN Hypoglycemia Protocol Famotidine 20 mg 11/07/24 21:00 11/07/24 21:21 Famotidine 20 Mg/2 Ml Vial IV PUSH 20 mg Q12HR SAKSHI Administration Glucagon 1 mg 11/07/24 22:49 Glucagon For Inj 1 Mg Vial IM PRN PRN Hypoglycemia Protocol Glucose 15 gm 11/07/24 22:49 Glucose Oral Gel 15 Gm Of Glucse In 37.5 Gm Tube PO PRN PRN Hypoglycemia Protocol Heparin Sodium (Porcine) 4,000 units 11/07/24 15:28 11/08/24 07:25 Heparin Sodium 5,000 Units/Ml Vial IV PUSH 4,000 units PRN PRN Administration aPTT less than 55 seconds Heparin Sodium (Porcine) 3,000 units 11/07/24 15:28 Heparin Sodium 5,000 Units/Ml Vial IV PUSH PRN PRN aPTT 55 - 70 seconds Heparin Sodium/Dextrose 25,000 units in 250 mls @ 7 mls/hr 11/07/24 15:30 11/08/24 01:33 Heparin Sodium/D5w 100 Units/Ml IV CONT 700 units/hr .Q24H SAKSHI 7 mls/hr Titration Protocol 700 UNITS/HR Dextrose 1,000 mls @ 100 mls/hr 11/07/24 22:49 Dextrose 5% 1,000 Ml IVPB PRN PRN Hypoglycemia Protocol Insulin Aspart 2 - 5 units 11/08/24 08:00 Insulin Aspart (*Bkc) 100 Units/Ml SUB-Q TIDWM SAKSHI Protocol Insulin Aspart 1 - 2 units 11/08/24 21:00 Insulin Aspart (*Bkc) 100 Units/Ml SUB-Q HS SAKSHI Protocol Ondansetron HCl 4 mg 11/07/24 15:49 Ondansetron Inj 4 Mg/2 Ml Vial IV PUSH Q4H PRN Nausea Perflutren Lipid Microsphere 0 ml 11/07/24 22:48 Perflutren Lipid Microspheres 1.5 Ml Vial Diluted To 10 Ml Total Volume IV PUSH 11/10/24 22:48 ONCE PRN adequate visualization Protocol Radiology Results: ITS Impressions Chest X-Ray 11/07/24 13:33 IMPRESSION: 1. Mild atelectasis at the lung bases. Labs Labs: Laboratory Results - last 24 hr 11/07/24 11/07/24 11/07/24 14:07 18:39 23:31 WBC 6.3 RBC 4.89 Hgb 13.7 L Hct 43.2 MCV 88.3 MCH 28.0 MCHC 31.7 L RDW 14.4 Plt Count 160 MPV 10.2 Immature Gran % (Auto) 0.5 Neut % (Auto) 66.5 Lymph % (Auto) 19.2 [place] % (Auto) 9.4 H Eos % (Auto) 3.6 Baso % (Auto) 0.8 Lymph # (Auto) 1.21 [place] # (Auto) 0.6 Eos # (Auto) 0.2 Baso # (Auto) 0.1 Abs Immat Gran (auto) 0.03 Absolute Neuts (auto) 4.2 Absolute Nucleated RBC 0.000 Nucleated RBC % 0.0 PT 14.0 14.4 INR 1.0 1.1 APTT 33.3 162.9 H* Sodium 137 Potassium 4.1 Chloride 104 Carbon Dioxide 34 H Anion Gap -1 L BUN 22 H Creatinine 0.80 Estim Creat Clear Calc 58 Estimated GFR > 60 Glucose 131 H Calcium 9.6 Magnesium Total Bilirubin 0.5 AST 27 ALT 20 Alkaline Phosphatase 70 Troponin I 1.210 H* 2.980 H* D 3.650 H* D Total Protein 7.0 Albumin 4.2 Lipase 349 H 11/08/24 06:25 WBC 6.1 RBC 4.58 L Hgb 12.8 L Hct 40.4 L MCV 88.2 MCH 27.9 MCHC 31.7 L RDW 14.3 Plt Count 167 MPV 10.5 H Immature Gran % (Auto) 0.3 Neut % (Auto) 61.9 Lymph % (Auto) 22.8 [place] % (Auto) 9.7 H Eos % (Auto) 4.3 Baso % (Auto) 1.0 Lymph # (Auto) 1.39 [place] # (Auto) 0.6 Eos # (Auto) 0.3 Baso # (Auto) 0.1 Abs Immat Gran (auto) 0.02 Absolute Neuts (auto) 3.8 Absolute Nucleated RBC 0.000 Nucleated RBC % 0.0 PT INR APTT 51.0 H Sodium 135 L Potassium 4.1 Chloride 105 Carbon Dioxide 31 H Anion Gap -1 L BUN 20 Creatinine 0.90 Estim Creat Clear Calc 51 Estimated GFR > 60 Glucose 129 H Calcium 9.4 Magnesium 2.0 Total Bilirubin AST ALT Alkaline Phosphatase Troponin I Total Protein Albumin Lipase Quality VTE Prophylaxis VTE prophylaxis: pharmacologic ordered (currently on a heparin drip)
[2024-11-08 08:36] LABS: Glucose Point of Care 145 mg/dl (65-105)
--- NOTE | 2024-11-08 08:44 | PM.IMPN ---
Progress Note: A&P Assessment and Plan (1) Non-ST elevation myocardial infarction (NSTEMI): Code(s): I21.4 - Non-ST elevation (NSTEMI) myocardial infarction Status: Acute (2) Gastroesophageal reflux disease: Code(s): K21.9 - Gastro-esophageal reflux disease without esophagitis Status: Acute (3) Paroxysmal atrial fibrillation: Code(s): I48.0 - Paroxysmal atrial fibrillation Status: Acute (4) Chronic anticoagulation: Code(s): Z79.01 - senior care (current) use of anticoagulants Status: Acute (5) Type 2 diabetes mellitus: Code(s): E11.9 - Type 2 diabetes mellitus without complications Status: Chronic (6) Hypertension: Code(s): I10 - Essential (primary) hypertension Status: Acute Plan The patient presented to the emergency department for evaluation of acid reflux as detailed in HPI. Labs, imaging, EKG, and all reports were personally reviewed. He describes classic GERD symptoms and given his history of duodenal ulcers GI has been consulted for recommendations. Incidentally an EKG and troponins were drawn on the patient upon arrival and he was found to have T-wave inversions in anterior leads and a modestly elevated troponin. His symptoms actually improved with nitroglycerin and he was started on a heparin drip with plans for cardiac catheterization tomorrow per Cardiology. He will be monitored closely in the IMU. Trend troponins to peak. Continue PPI. Hold apixaban as he is on heparin drip. Blood pressures were reviewed and they are stable. Hold metformin due to plans for cardiac catheterization. Initiate sliding scale insulin, Accu-Cheks, and hypoglycemic protocol. The rest of his home medications will be reviewed and resumed as appropriate. Findings and treatment plan were discussed with the patient. Subjective Date/time seen: 11/08/24 08:44 Interval history: Patient was evaluated at the bedside along with the . Patient reports he had cardiac catheterization 10 years ago which was normal. Patient also reported he had a echocardiogram and stress test approximately 2 years ago which was normal. Patient will undergo cardiac catheterization possibly after cardiology evaluation. Patient has a past medical history of AFib. Eliquis has been hold due to the possibility of cardiac catheterization Review of Systems Review of Systems: 12 systems were reviewed and are negative except for as per HPI. Exam Narrative: General: Well-developed, nontoxic-appearing gentleman sitting up in bed in no acute distress. He appears to be younger than his stated age. Weight: 73 kg. BMI: 21.8. HEENT: PERRL, EOMI. Sclera anicteric. Oral mucosa moist. Neck: Supple. Respiratory: Lungs are clear to auscultation bilaterally. Cardiovascular: Regular rate and rhythm with S1-S2. Chest: No tenderness to palpation over the chest wall. Gastrointestinal: Abdomen is soft, nontender, and nondistended with positive bowel sounds. No guarding or rebound tenderness. Skin: Warm and dry. Extremities: No cyanosis, clubbing, or edema. Radial and pedal pulses intact. Neurological: Alert. Cranial nerves 2-12 are grossly intact. No gross focal deficits to casual conversation. Psychiatric: Pleasant and cooperative with normal mood and affect. Judgment and insight intact. Objective Data Vital Signs Vital Signs: Vital Signs - 24 hr 11/07/24 10:00 11/07/24 16:16 11/07/24 16:30 Temperature 97.9 F Pulse Rate 95 79 78 Respiratory Rate 16 14 16 Blood Pressure 162/82 H 136/69 Pulse Oximetry 100 100 100 Oxygen Delivery 11/07/24 16:31 11/07/24 16:45 11/07/24 17:01 Temperature Pulse Rate 78 90 83 Respiratory Rate 15 18 15 Blood Pressure 138/67 133/66 Pulse Oximetry 100 100 100 Oxygen Delivery 11/07/24 17:16 11/07/24 17:46 11/07/24 23:33 Temperature Pulse Rate 75 78 89 Respiratory Rate 15 17 18 Blood Pressure 135/74 115/70 123/56 L Pulse Oximetry 100 100 100 Oxygen Delivery 11/08/24 00:00 11/08/24 00:00 11/08/24 00:00 Temperature 98.3 F Pulse Rate 77 93 Respiratory Rate 18 Blood Pressure 134/57 L Pulse Oximetry 99 Oxygen Delivery Room Air 11/08/24 02:00 11/08/24 04:00 11/08/24 04:00 Temperature 98.0 F Pulse Rate 100 77 72 Respiratory Rate 15 Blood Pressure 118/45 L Pulse Oximetry 100 Oxygen Delivery 11/08/24 04:00 11/08/24 08:00 Temperature 98.0 F Pulse Rate 68 Respiratory Rate 18 Blood Pressure 105/53 L Pulse Oximetry 100 Oxygen Delivery Room Air Intake/Output Intake/Output: Intake & Output 11/05/24 11/06/24 11/07/24 11/08/24 23:59 23:59 23:59 23:59 Intake Total 75 Output Total 400 Balance -325 Meds/Results Medications: Active Medications Generic Name Dose Route Start Last Admin Trade Name Micahq PRN Reason Stop Dose Admin Acetaminophen 650 mg 11/07/24 22:48 Acetaminophen 325 Mg Tablet PO Q6H PRN Mild Pain (1-3) or Fever Dextrose 12.5 gm 11/07/24 22:49 Dextrose 50% 25 Gm/50 Ml Syringe IV PUSH PRN PRN Hypoglycemia Protocol Famotidine 20 mg 11/07/24 21:00 11/07/24 21:21 Famotidine 20 Mg/2 Ml Vial IV PUSH 20 mg Q12HR SAKSHI Administration Glucagon 1 mg 11/07/24 22:49 Glucagon For Inj 1 Mg Vial IM PRN PRN Hypoglycemia Protocol Glucose 15 gm 11/07/24 22:49 Glucose Oral Gel 15 Gm Of Glucse In 37.5 Gm Tube PO PRN PRN Hypoglycemia Protocol Heparin Sodium (Porcine) 4,000 units 11/07/24 15:28 11/08/24 07:25 Heparin Sodium 5,000 Units/Ml Vial IV PUSH 4,000 units PRN PRN Administration aPTT less than 55 seconds Heparin Sodium (Porcine) 3,000 units 11/07/24 15:28 Heparin Sodium 5,000 Units/Ml Vial IV PUSH PRN PRN aPTT 55 - 70 seconds Heparin Sodium/Dextrose 25,000 units in 250 mls @ 7 mls/hr 11/07/24 15:30 11/08/24 01:33 Heparin Sodium/D5w 100 Units/Ml IV CONT 700 units/hr .Q24H SAKSHI 7 mls/hr Titration Protocol 700 UNITS/HR Dextrose 1,000 mls @ 100 mls/hr 11/07/24 22:49 Dextrose 5% 1,000 Ml IVPB PRN PRN Hypoglycemia Protocol Insulin Aspart 2 - 5 units 11/08/24 08:00 Insulin Aspart (*Bkc) 100 Units/Ml SUB-Q TIDWM SAKSHI Protocol Insulin Aspart 1 - 2 units 11/08/24 21:00 Insulin Aspart (*Bkc) 100 Units/Ml SUB-Q HS SAKSHI Protocol Ondansetron HCl 4 mg 11/07/24 15:49 Ondansetron Inj 4 Mg/2 Ml Vial IV PUSH Q4H PRN Nausea Perflutren Lipid Microsphere 0 ml 11/07/24 22:48 Perflutren Lipid Microspheres 1.5 Ml Vial Diluted To 10 Ml Total Volume IV PUSH 11/10/24 22:48 ONCE PRN adequate visualization Protocol Radiology Results: ITS Impressions Chest X-Ray 11/07/24 13:33 IMPRESSION: 1. Mild atelectasis at the lung bases. Labs Labs: Laboratory Results - last 24 hr 11/07/24 11/07/24 11/07/24 14:07 18:39 23:31 WBC 6.3 RBC 4.89 Hgb 13.7 L Hct 43.2 MCV 88.3 MCH 28.0 MCHC 31.7 L RDW 14.4 Plt Count 160 MPV 10.2 Immature Gran % (Auto) 0.5 Neut % (Auto) 66.5 Lymph % (Auto) 19.2 [place] % (Auto) 9.4 H Eos % (Auto) 3.6 Baso % (Auto) 0.8 Lymph # (Auto) 1.21 [place] # (Auto) 0.6 Eos # (Auto) 0.2 Baso # (Auto) 0.1 Abs Immat Gran (auto) 0.03 Absolute Neuts (auto) 4.2 Absolute Nucleated RBC 0.000 Nucleated RBC % 0.0 PT 14.0 14.4 INR 1.0 1.1 APTT 33.3 162.9 H* Sodium 137 Potassium 4.1 Chloride 104 Carbon Dioxide 34 H Anion Gap -1 L BUN 22 H Creatinine 0.80 Estim Creat Clear Calc 58 Estimated GFR > 60 Glucose 131 H POC Capillary Glucose Calcium 9.6 Magnesium Total Bilirubin 0.5 AST 27 ALT 20 Alkaline Phosphatase 70 Troponin I 1.210 H* 2.980 H* D 3.650 H* D Total Protein 7.0 Albumin 4.2 Lipase 349 H 11/08/24 11/08/24 06:25 08:31 WBC 6.1 RBC 4.58 L Hgb 12.8 L Hct 40.4 L MCV 88.2 MCH 27.9 MCHC 31.7 L RDW 14.3 Plt Count 167 MPV 10.5 H Immature Gran % (Auto) 0.3 Neut % (Auto) 61.9 Lymph % (Auto) 22.8 [place] % (Auto) 9.7 H Eos % (Auto) 4.3 Baso % (Auto) 1.0 Lymph # (Auto) 1.39 [place] # (Auto) 0.6 Eos # (Auto) 0.3 Baso # (Auto) 0.1 Abs Immat Gran (auto) 0.02 Absolute Neuts (auto) 3.8 Absolute Nucleated RBC 0.000 Nucleated RBC % 0.0 PT INR APTT 51.0 H Sodium 135 L Potassium 4.1 Chloride 105 Carbon Dioxide 31 H Anion Gap -1 L BUN 20 Creatinine 0.90 Estim Creat Clear Calc 51 Estimated GFR > 60 Glucose 129 H POC Capillary Glucose 145 H Calcium 9.4 Magnesium 2.0 Total Bilirubin AST ALT Alkaline Phosphatase Troponin I Total Protein Albumin Lipase Quality VTE Prophylaxis VTE prophylaxis: pharmacologic ordered (currently on a heparin drip) Hospitalist MIPS Advance Care Plan I have confirmed that the patient's Advanced Care Plan is present, code status is documented, or surrogate decision maker is listed in patient medical record.: Yes Medication Reconciliation I have utilized all available resources to obtain, update and review the patients current medications (includes all prescriptions, OTC, herbals, cannabis, and nutritional supplements).: Yes
[2024-11-08] MEDS: FAMOTIDINE 20 MG/2 ML VIAL IV PUSH ×2 (09:57→20:50)
[2024-11-08 12:13] LABS: Glucose Point of Care 157 mg/dl (65-105)
[2024-11-08 12:26] LABS: Toxigenic C. Diff NEGATIVE (NEGATIVE)
[2024-11-08 13:50] LABS: Partial Thromboplastin Time 134.9 Seconds (22.3-36.8)
[2024-11-08 16:26] LABS: Glucose Point of Care 276 mg/dl (65-105)
[2024-11-08] MEDS: INSULIN ASPART (*BKC) 100 UNITS/ML SUB-Q (17:11)
--- NOTE | 2024-11-08 17:55 | P.CONCA_ITS ---
Assessment and Plan Assessment and plan (1) Non-ST elevation myocardial infarction (NSTEMI): Code(s): I21.4 - Non-ST elevation (NSTEMI) myocardial infarction Status: Acute (2) Hypertension: Code(s): I10 - Essential (primary) hypertension Status: Acute Plan 1. NSTEMI 2. AFib 3. Hypertension 4. 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 [facility] Past Medical History Medical History (Updated 11/07/24 @ 22:44 by Rena Preciado PA-C) Chronic anticoagulation Hypertension Paroxysmal atrial flutter Osteoarthritis Gastroesophageal reflux disease Chronic anticoagulation Paroxysmal atrial fibrillation Type 2 diabetes mellitus Duodenal ulcer Hyperlipidemia Gout Surgical History Surgical History (Updated 11/07/24 @ 22:44 by Rena Preciado PA-C) History of bowel resection (02/04/24) Exploratory laparotomy with adhesiolysis an ileal resection with [id number] ileal anastomosis History of esophagogastroduodenoscopy (10/2023) History of bilateral cataract extraction History of appendectomy History of repair of ACL Right Family History Family History Sibling Acute myocardial infarction Cerebrovascular accident Diabetes mellitus Hypertension Mother Diabetes mellitus Social History Social History Social History: Surrogate medical decision maker: Ling [place], spouse. Code status: Full code. Smoking status: Never smoker Alcohol intake: never Substance use: never Substance use type: does not use Do You Feel Safe in your Home?: Yes Lack of Transportation: No Lack of Food: Never True Current Housing: I Have Housing Concerned About Future Housing: No Difficulty Paying Gas/Electric Bills: No Difficulty Paying for Meds: No Currently Unemployed: No Education: Bachelor's Degree Difficulty w/ Childcare or Family Care: No Living arrangements: with family Additional living arrangements comments: Lives in [place]. He has three biological children. Occupation/Education: retired Additional occupation/education comments: Retired from [employer]. Spiritual care concerns: No Meds Home Medications and Allergies Home Medications ?Medication ?Instructions ?Recorded ?Confirmed ?Type allopurinol 300 mg tablet 300 mg PO DAILY 11/24/19 11/08/24 History metformin 500 mg tablet,extended 1,000 mg PO BID 11/24/19 11/08/24 History release 24 hr omeprazole 20 mg capsule,delayed 20 mg PO BID 11/24/19 11/08/24 History release diltiazem HCl 120 mg 120 mg PO DAILY 10/02/23 11/08/24 History capsule,extended release 12 hr dapagliflozin propanediol 10 mg 5 mg PO DAILY 01/21/24 11/08/24 History tablet (Farxiga) ferrous sulfate 325 mg (65 mg 325 mg PO DAILY 01/21/24 11/08/24 History iron) tablet,delayed release ranolazine 500 mg tablet,extended 500 mg PO BID 01/21/24 11/08/24 History release,12 hr apixaban 5 mg tablet (Eliquis) 5 mg PO Q12H #14 tabs 02/04/24 11/08/24 Rx ezetimibe 10 mg tablet 10 mg PO DAILY 08/20/24 11/08/24 History multivitamin 1 tablet PO DAILY 08/20/24 11/08/24 History Allergies Allergy/AdvReac Type Severity Reaction Status Date / Time lisinopril AdvReac Swelling Verified 08/20/24 11:57 Vital Signs Vital Signs - 24 hr 11/07/24 23:33 11/08/24 00:00 11/08/24 00:00 Temperature 36.8 C Pulse Rate 89 77 Respiratory Rate 18 18 Blood Pressure 123/56 L 134/57 L Pulse Oximetry 100 99 Oxygen Delivery Room Air Fraction of Inspired Oxygen 11/08/24 00:00 11/08/24 02:00 11/08/24 04:00 Temperature Pulse Rate 93 100 77 Respiratory Rate Blood Pressure Pulse Oximetry Oxygen Delivery Fraction of Inspired Oxygen 11/08/24 04:00 11/08/24 04:00 11/08/24 06:00 Temperature 36.7 C Pulse Rate 72 71 Respiratory Rate 15 Blood Pressure 118/45 L Pulse Oximetry 100 Oxygen Delivery Room Air Fraction of Inspired Oxygen 11/08/24 08:00 11/08/24 08:00 11/08/24 08:00 Temperature 36.7 C Pulse Rate 68 72 Respiratory Rate 18 Blood Pressure 105/53 L Pulse Oximetry 100 Oxygen Delivery Room Air Fraction of Inspired Oxygen 11/08/24 09:16 11/08/24 10:00 11/08/24 11:22 Temperature 36.4 C Pulse Rate 102 H 78 Respiratory Rate 20 Blood Pressure 120/55 L Pulse Oximetry 97 100 Oxygen Delivery Autopap Fraction of Inspired Oxygen 21 11/08/24 12:00 11/08/24 12:00 11/08/24 14:00 Temperature Pulse Rate 80 103 H Respiratory Rate Blood Pressure Pulse Oximetry Oxygen Delivery Room Air Fraction of Inspired Oxygen 11/08/24 15:42 11/08/24 16:00 11/08/24 16:00 Temperature 36.4 C Pulse Rate 104 H 102 H Respiratory Rate 18 Blood Pressure 111/50 L Pulse Oximetry 100 Oxygen Delivery Room Air Fraction of Inspired Oxygen Exam 2 Narrative: General: Well-developed, nontoxic-appearing gentleman sitting up in bed in no acute distress. He appears to be younger than his stated age. Weight: 73 kg. BMI: 21.8. HEENT: PERRL, EOMI. Sclera anicteric. Oral mucosa moist. Neck: Supple. Respiratory: Lungs are clear to auscultation bilaterally. Cardiovascular: Regular rate and rhythm with S1-S2. Chest: No tenderness to palpation over the chest wall. Gastrointestinal: Abdomen is soft, nontender, and nondistended with positive bowel sounds. No guarding or rebound tenderness. Skin: Warm and dry. Extremities: No cyanosis, clubbing, or edema. Radial and pedal pulses intact. Neurological: Alert. Cranial nerves 2-12 are grossly intact. No gross focal deficits to casual conversation. Psychiatric: Pleasant and cooperative with normal mood and affect. Judgment and insight intact. Results Labs and Meds 11/09/24 03:44 11/09/24 03:44 Lab results: Cardiac Enzymes 11/07/24 11/07/24 Range/Units 18:39 23:31 Troponin I 2.980 H* D 3.650 H* D (0.000-0.034) ng/mL Coagulation 11/07/24 11/08/24 11/08/24 Range/Units 23:31 06:25 13:20 PT 14.4 (11.1-14.7) Seconds APTT 162.9 H* 51.0 H 134.9 H (22.3-36.8) Seconds CBC 11/08/24 Range/Units 06:25 WBC 6.1 (4.5-10.0) K/mm3 RBC 4.58 L (4.6-6.20) M/mm3 Hgb 12.8 L (14.0-18.0) g/dL Hct 40.4 L (42.0-52.0) % Plt Count 167 (150-375) k/mm3 Lymph # (Auto) 1.39 (0.9-3.2) K/mm3 [place] # (Auto) 0.6 (0.1-0.6) K/mm3 Eos # (Auto) 0.3 (0-0.3) K/mm3 Baso # (Auto) 0.1 (0.0-0.1) K/mm3 Comprehensive Metabolic Panel 11/08/24 Range/Units 06:25 Sodium 135 L (137-145) mmol/L Potassium 4.1 (3.4-5.0) mmol/L Chloride 105 (98-107) mmol/L Carbon Dioxide 31 H (22-30) mmol/L BUN 20 (9-20) mg/dL Creatinine 0.90 (0.7-1.3) mg/dL Glucose 129 H (65-110) mg/dL Calcium 9.4 (8.4-10.2) mg/dL Intake and Output 11/08/24 11/08/24 11/08/24 07:59 15:59 23:59 Intake Total 113.2 68.8 Output Total 400 550 Balance -286.8 -481.2 Intake: IV 113.2 68.8 Heparin Sod/D5w 100 Units/ml 25 113.2 68.8 ,000 units In 250 ml @ 700 UNITS/HR 7 mls/hr IV CONT .Q24H [facility] Rx#:[id number] Output: Urine 400 550 Patient Weight 11/08/24 23:59 Weight 71.3 kg
[2024-11-08 20:13] LABS: Glucose Point of Care 143 mg/dl (65-105)
[2024-11-08 20:40] LABS: Partial Thromboplastin Time 59.7 Seconds (22.3-36.8)
[2024-11-08] MEDS: HEPARIN SODIUM 5,000 UNITS/ML VIAL 3000 UNITS IV PUSH (20:50)
[2024-11-08] MEDS: HEPARIN SOD/D5W 100 UNITS/ML 25,000 UNITS/250 ML BAG 9 UNITS IV CONT (20:51)
--- NOTE | 2024-11-08 22:48 | ECHO_ITS ---
Patient Info Name: Gene Yen Age: 89 years : 1935 Gender: Male Ht: 72 in Wt: 157 lbs BSA: 1.90 m2 HR: 68 bpm BP: 105 / 53 mmHg Technical Quality: Fair Exam Date: 11/08/2024 11:21 AM Exam Location: Echo Lab Patient Status: Inpatient Admit Date: 11/07/2024 Staff Ordering Physician: Rena Preciado PA-C Electrician Ship: Balaji Foss RDCS Attending Provider: Jose Do MD Referring Physician: Ozzy IYER; Exam Type: CA echo doppler color flow Study Info Indications - NSTEMI Complete two-dimensional, color flow and Doppler transthoracic echocardiogram is performed. Summary 1. Complete two-dimensional, color flow and Doppler transthoracic echocardiogram is performed. 2. Left ventricular chamber dimension is normal. 3. There is moderately increased left ventricular wall thickness. 4. Left ventricular systolic function is mildly reduced with an ejection fraction by Biplane Method of Discs of 47 %. 5. Left ventricular wall motion shows mid-distal hypokinesis of ant-septal, inf-septal segmetns. 6. The left ventricular diastolic function is normal. 7. Right ventricular chamber dimension is normal. 8. Right ventricular systolic function is normal. 9. There is mild tricuspid valve regurgitation. 10. There is mild mitral valve regurgitation. 11. Normal inferior vena cava with >50% collapse upon inspiration consistent with normal right atrial pressure, 3 mmHg. Left Ventricle Left ventricular chamber dimension is normal. There is moderately increased left ventricular wall thickness. Left ventricular systolic function is mildly reduced with an ejection fraction by Biplane Method of Discs of 47 %. Left ventricular wall motion shows mid-distal hypokinesis of ant-septal, inf-septal segments. The left ventricular diastolic function is normal. Right Ventricle Right ventricular chamber dimension is normal. Right ventricular systolic function is normal. Left Atria Left atrial chamber dimension is normal. Right Atria Right atrial chamber dimension is normal. Aortic Valve The aortic valve is trileaflet. There is no aortic valve sclerosis. There is no aortic valve stenosis. There is no aortic valve regurgitation. Pulmonic Valve The pulmonic valve is normal. There is no pulmonic valve stenosis. There is no pulmonic regurgitation. Mitral Valve The mitral valve has normal leaflets. There is no mitral valve stenosis. There is mild mitral valve regurgitation. Tricuspid Valve The tricuspid valve leaflets are normal. There is no significant tricuspid valve stenosis. There is mild tricuspid valve regurgitation. No pulmonary hypertension, estimated pulmonary arterial systolic pressure is 41 mmHg. Pericardium/Pleural The pericardium appears normal. There is no pericardial effusion. Inferior Vena Cava Normal inferior vena cava with >50% collapse upon inspiration consistent with normal right atrial pressure, 3 mmHg. Aorta The aortic root size at the sinus of Valsalva is normal. The prox ascending aorta size is normal. Left Ventricular Outflow Tract Name Value Normal LVOT 2D LVOT Diameter 2.1 cm LVOT Doppler LVOT Peak Velocity 81 cm/s LVOT Peak Gradient 2 mmHg LVOT Mean Gradient 2 mmHg LVOT VTI 15 cm LVOT VTI/AV VTI Ratio 0.9 LVOT Stroke Volume 53 ml LVOT CO 3.6 l/min LVOT CI 1.9 l/min/m2 Pulmonic Valve Name Value Normal RVOT Doppler RVOT Peak Gradient 2 mmHg PV Doppler PV Peak Velocity 85 cm/s PV Peak Gradient 3 mmHg Mitral Valve Name Value Normal MV Diastolic Function MV E Peak Velocity 43 cm/s MV A Peak Velocity 102 cm/s MV E/A 0.4 MV Annular TDI MV Septal e' Velocity 4.0 cm/s >=8.0 MV E/e' (Septal) 10.8 <=8.0 MV Lateral e' Velocity 4.0 cm/s >=10.0 MV E/e' (Lateral) 10.8 <=8.0 MV e' Average 3.97 MV E/e' (Average) 10.8 Tricuspid Valve Name Value Normal TV Regurgitation Doppler TR Peak Velocity 307 cm/s TR Peak Gradient 38 mmHg Estimated PAP/RSVP RA Pressure 3 mmHg <=5 PA Systolic Pressure 41 mmHg <36 RV Systolic Pressure 41 mmHg <36 TV Annular TDI TV Lateral Selam s' Velocity 10.1 cm/s 9.5-18.7 Aorta Name Value Normal Ascending Aorta Ao Root Diameter (MM) 3.4 cm Ao Root Diam Index (MM) 1.8 cm/m2 Ao [place] Diameter 2.5 cm 2.6-3.2 Aortic Valve Name Value Normal AV Doppler AV Peak Velocity 94 cm/s AV Peak Gradient 4 mmHg AV Mean Gradient 2 mmHg AV VTI 17 cm AV Area (Cont Eq VTI) 3.2 cm2 >=3.0 AV Area (Cont Eq Prateek) 3.1 cm2 AV V1/V2 Ratio 0.86 AV Regurgitation 2D LVOT Area 3.6 cm2 Ventricles Name Value Normal LV Dimensions 2D/MM IVS Diastolic Thickness (2D) 1.5 cm 0.6-1.0 LVID Diastole (2D) 3.9 cm 4.2-5.8 LVIW Diastolic Thickness (2D) 1.5 cm 0.6-1.0 LVID Systole (2D) 2.3 cm 2.5-4.0 LVOT Diameter 2.1 cm LV Mass (2D Cubed) 228.92 g 88.00-224.00 LV Mass Index (2D Cubed) 121 g/m2 49-115 Relative Wall Thickness (2D) 0.78 LV Fractional Shortening/Ejection Fraction 2D/MM LV Fractional Shortening (2D) 41 % 25-43 LV EF (2D Teicholz) 73 % 52-72 LV Diastolic Volume (4C MOD) 77 ml LV EF (4C MOD) 39 % LV Diastolic Volume (2C MOD) 116 ml LV EF (2C MOD) 54 % LV Diastolic Volume (BP MOD) 96 ml 62-150 LV Diastolic Volume Index (BP MOD) 50 ml/m2 34-74 LV Systolic Volume (BP MOD) 50 ml 21-61 LV Systolic Volume Index (BP MOD) 27 ml/m2 11-31 LV EF (BP MOD) 47 % 52-72 LV Diastolic Length (4C) 8.0 cm LV Systolic Length (4C) 6.9 cm LV Stroke Volume (4C MOD) 30 ml Atria Name Value Normal LA Dimensions LA Dimension (MM) 2.6 cm 3.0-4.1 LA Volume (4C A-L) 39 ml LA Volume (BP A-L) 43 ml RA Dimensions RA Area (4C) 11.7 cm2 <=18.0 Report Signatures
[2024-11-09] VITALS (17 sets, daily range): BP systolic 107–141; BP diastolic 52–78; PULSE 63–132; RESP 14–20; TEMP 36.4–37.2; O2SAT 98–100
--- NOTE | 2024-11-09 00:20 | ECG_ITS ---
Test Date: 2024-11-09 00:26:58 Measurements Intervals [place] Rate: 79 P: 26 [place]: 151 QRS: -15 QRSD: 101 T: 90 QT: 358 QTc: 413 Interpretive Statements SINUS RHYTHM SEPTAL MYOCARDIAL INFARCTION [40+ ms Q WAVE IN V1/V2], OF INDETERMINATE AGE ST DEVIATION AND MODERATE T-WAVE ABNORMALITY, CONSIDER ANTERIOR ISCHEMIA [-0.1+ mV T WAVE IN V3/V4] Compared to ECG 11/07/2024 18:46:05 NO SIGNIFICANT CHANGES Electronically Signed On 11-12-2024 16:00:33 WIRE WORKER by Nathaniel Cade M.D.
--- NOTE | 2024-11-09 00:28 | ECG_ITS ---
Test Date: 2024-11-09 00:28:14 Measurements Intervals [place] Rate: 77 P: 22 [place]: 164 QRS: -14 QRSD: 93 T: 89 QT: 354 QTc: 401 Interpretive Statements SINUS RHYTHM SEPTAL MYOCARDIAL INFARCTION [40+ ms Q WAVE IN V1/V2], OF INDETERMINATE AGE MODERATE T-WAVE ABNORMALITY, CONSIDER ANTERIOR ISCHEMIA [-0.1+ mV T WAVE IN V3/V4] Compared to ECG 11/09/2024 00:26:58 No significant changes Electronically Signed On 11-12-2024 16:00:44 HOME AND FAMILY LIVING PROFESSOR by Nathaniel Cade M.D.
[2024-11-09] MEDS: BELLADONNA ALK/PHENOB ELIX 10 ML, MAG HYDROX/ALUMINUM HYD/SIMETH 30 ML, LIDOCAINE 2% VI... PO (00:42)
[2024-11-09 04:20] LABS: Hematocrit 42.1 % (42.0-52.0); Hemoglobin 13.1 g/dL (14.0-18.0); Mean Corpuscular HGB Conc 31.1 g/dl (32-36); Mean Corpuscular Hemoglobin 27.3 pg (26-34); Mean Corpuscular Volume 87.9 fl (80-100); Mean Platelet Volume 11.4 fl (7.4-10.4); Platelet Count Result 174 k/mm3 (150-375); Red Blood Count 4.79 M/mm3 (4.6-6.20); Red Cell Distribution Width 14.2 % (11.5-14.5); White Blood Count 6.3 K/mm3 (4.5-10.0)
[2024-11-09 04:31] LABS: Alanine Aminotransferase 17 U/L (6-50); Albumin Level 3.8 g/dL (3.5-5.1); Alkaline Phosphatase 65 U/L (38-126); Anion Gap 1 mmol/L (4-12); Aspartate Amino Transferase 21 U/L (17-59); Bilirubin,Total 0.5 mg/dL (0.2-1.3); Blood Urea Nitrogen 15 mg/dL (9-20); Calcium 9.5 mg/dL (8.4-10.2); Carbon Dioxide 27 mmol/L (22-30); Chloride 107 mmol/L (98-107); Estimated CRCL calculation 51 ml/min; Estimated Glomerular Filt Rate > 60; Glucose 159 mg/dL (65-110); Potassium 3.8 mmol/L (3.4-5.0); Sodium 135 mmol/L (137-145)
[2024-11-09 05:58] LABS: Partial Thromboplastin Time 119.9 Seconds (22.3-36.8)
--- NOTE | 2024-11-09 07:40 | P.PNIM_ITS ---
Progress Note: A&P Assessment and Plan (1) Non-ST elevation myocardial infarction (NSTEMI): Code(s): I21.4 - Non-ST elevation (NSTEMI) myocardial infarction Status: Acute (2) Gastroesophageal reflux disease: Code(s): K21.9 - Gastro-esophageal reflux disease without esophagitis Status: Acute (3) Paroxysmal atrial fibrillation: Code(s): I48.0 - Paroxysmal atrial fibrillation Status: Acute (4) Chronic anticoagulation: Code(s): Z79.01 - retirement (current) use of anticoagulants Status: Acute (5) Type 2 diabetes mellitus: Code(s): E11.9 - Type 2 diabetes mellitus without complications Status: Chronic (6) Hypertension: Code(s): I10 - Essential (primary) hypertension Status: Acute Plan The patient presented to the emergency department for evaluation of acid reflux as detailed in HPI. Labs, imaging, EKG, and all reports were personally reviewed. He describes classic GERD symptoms and given his history of duodenal ulcers GI has been consulted for recommendations. Incidentally an EKG and troponins were drawn on the patient upon arrival and he was found to have T-wave inversions in anterior leads and a modestly elevated troponin. His symptoms actually improved with nitroglycerin and he was started on a heparin drip with plans for cardiac catheterization tomorrow per Cardiology. He will be monitored closely in the IMU. Trend troponins to peak. Continue PPI. Hold apixaban as he is on heparin drip. Blood pressures were reviewed and they are stable. Hold metformin due to plans for cardiac catheterization. Initiate sliding scale insulin, Accu-Cheks, and hypoglycemic protocol. The rest of his home medications will be reviewed and resumed as appropriate. Findings and treatment plan were discussed with the patient. NTSEMI -Possible cath tomorrow -Eliquis on hold -Not on ASA or Statin -Cardiology on board -Underwent Cath approx 10 years ago.Reports no significant finding -3 years underwent ECHO and Stress test which was negative as per patient -Continue heparin drip and give sublingual nitro if needed -Echocardiogram LVEF 47% -Denies any illicit drug use -Reviewed EKG and CXR -Continue Diltiazem 120mg PO QD and Ranolazine 500mg PO BID Gastric Ulcer -Previous hx gastric ulcer . -Recently had increased heart burn ,PCP increased his PPI dose to twice daily. -No recent EGD DM SSI Hold Metformin,Farixga Subjective Date/time seen: 11/09/24 07:40 Interval history: Night team reported patient had chest pain/haert burn. Given GI cocktail. Resolved the discomfort. Morning during evaluation patient was comfortable. Denies any chest pain, SOB or diaphhoresis.Continue heparin drip. Review of Systems Review of Systems: 12 systems were reviewed and are negativ e except for as per HPI. Exam Narrative: General: Well-developed, nontoxic-appearing gentleman sitting up in bed in no acute distress. He appears to be younger than his stated age. Weight: 73 kg. BMI: 21.8. HEENT: PERRL, EOMI. Sclera anicteric. Oral mucosa moist. Neck: Supple. Respiratory: Lungs are clear to auscultation bilaterally. Cardiovascular: Regular rate and rhythm with S1-S2. Chest: No tenderness to palpation over the chest wall. Gastrointestinal: Abdomen is soft, nontender, and nondistended with positive bowel sounds. No guarding or rebound tenderness. Skin: Warm and dry. Extremities: No cyanosis, clubbing, or edema. Radial and pedal pulses intact. Neurological: Alert. Cranial nerves 2-12 are grossly intact. No gross focal deficits to casual conversation. Psychiatric: Pleasant and cooperative with normal mood and affect. Judgment and insight intact. Objective Data Vital Signs Vital Signs: Vital Signs - 24 hr 11/08/24 08:00 11/08/24 08:00 11/08/24 08:00 Temperature 98.0 F Pulse Rate 68 72 Respiratory Rate 18 Blood Pressure 105/53 L Pulse Oximetry 100 Oxygen Delivery Room Air Fraction of Inspired Oxygen 11/08/24 09:16 11/08/24 10:00 11/08/24 11:22 Temperature 97.6 F Pulse Rate 102 H 78 Respiratory Rate 20 Blood Pressure 120/55 L Pulse Oximetry 97 100 Oxygen Delivery Autopap Fraction of Inspired Oxygen 21 11/08/24 12:00 11/08/24 12:00 11/08/24 14:00 Temperature Pulse Rate 80 103 H Respiratory Rate Blood Pressure Pulse Oximetry Oxygen Delivery Room Air Fraction of Inspired Oxygen 11/08/24 15:42 11/08/24 16:00 11/08/24 16:00 Temperature 97.6 F Pulse Rate 104 H 102 H Respiratory Rate 18 Blood Pressure 111/50 L Pulse Oximetry 100 Oxygen Delivery Room Air Fraction of Inspired Oxygen 11/08/24 18:00 11/08/24 20:00 11/08/24 20:00 Temperature 98.8 F Pulse Rate 102 H 88 87 Respiratory Rate 16 Blood Pressure 121/61 Pulse Oximetry 100 Oxygen Delivery Fraction of Inspired Oxygen 11/08/24 20:00 11/08/24 22:00 11/08/24 23:30 Temperature Pulse Rate 99 Respiratory Rate Blood Pressure Pulse Oximetry Oxygen Delivery Room Air Room Air Fraction of Inspired Oxygen 11/09/24 00:00 11/09/24 00:00 11/09/24 00:20 Temperature 98.9 F Pulse Rate 71 79 79 Respiratory Rate 16 Blood Pressure 114/58 L 141/78 H Pulse Oximetry 99 98 Oxygen Delivery Fraction of Inspired Oxygen 11/09/24 00:35 11/09/24 00:59 11/09/24 02:00 Temperature Pulse Rate 66 79 Respiratory Rate Blood Pressure 141/78 H 111/63 Pulse Oximetry 98 99 Oxygen Delivery Room Air Fraction of Inspired Oxygen 11/09/24 03:57 11/09/24 04:00 11/09/24 04:00 Temperature 97.5 F L Pulse Rate 71 64 Respiratory Rate 16 Blood Pressure 107/55 L Pulse Oximetry 98 Oxygen Delivery Room Air Fraction of Inspired Oxygen 11/09/24 06:00 Temperature Pulse Rate 63 Respiratory Rate Blood Pressure Pulse Oximetry Oxygen Delivery Fraction of Inspired Oxygen Intake/Output Intake/Output: Intake & Output 11/06/24 11/07/24 11/08/24 11/09/24 23:59 23:59 23:59 23:59 Intake Total 1259.7 432.5 Output Total 1875 500 Balance -615.3 -67.5 Meds/Results Medications: Active Medications Generic Name Dose Route Start Last Admin Trade Name Freq PRN Reason Stop Dose Admin Acetaminophen 650 mg 11/07/24 22:48 Acetaminophen 325 Mg Tablet PO Q6H PRN Mild Pain (1-3) or Fever Al Hydrox/Mg Hydrox/Simethicone 30 ml 11/09/24 05:09 Mag Hydrox/Al Hydrox/Simeth 30 Ml Udc PO Q6H PRN Indigestion Dextrose 12.5 gm 11/07/24 22:49 Dextrose 50% 25 Gm/50 Ml Syringe IV PUSH PRN PRN Hypoglycemia Protocol Famotidine 20 mg 11/07/24 21:00 01/04/25 20:50 Famotidine 20 Mg/2 Ml Vial IV PUSH 20 mg Q12HR SAKSHI Administration Glucagon 1 mg 11/07/24 22:49 Glucagon For Inj 1 Mg Vial IM PRN PRN Hypoglycemia Protocol Glucose 15 gm 11/07/24 22:49 Glucose Oral Gel 15 Gm Of Glucse In 37.5 Gm Tube PO PRN PRN Hypoglycemia Protocol Heparin Sodium (Porcine) 4,000 units 11/07/24 15:28 11/08/24 07:25 Heparin Sodium 5,000 Units/Ml Vial IV PUSH 4,000 units PRN PRN Administration aPTT less than 55 seconds Heparin Sodium (Porcine) 3,000 units 11/07/24 15:28 11/08/24 20:50 Heparin Sodium 5,000 Units/Ml Vial IV PUSH 3,000 units PRN PRN Administration aPTT 55 - 70 seconds Heparin Sodium/Dextrose 25,000 units in 250 mls @ 8 mls/hr 11/07/24 15:30 11/09/24 06:01 Heparin Sodium/D5w 100 Units/Ml IV CONT 800 units/hr .Q24H SAKSHI 8 mls/hr Titration Protocol 800 UNITS/HR Dextrose 1,000 mls @ 100 mls/hr 11/07/24 22:49 Dextrose 5% 1,000 Ml IVPB PRN PRN Hypoglycemia Protocol Insulin Aspart 2 - 5 units 11/08/24 08:00 11/08/24 17:11 Insulin Aspart (*Bkc) 100 Units/Ml SUB-Q 3 units TIDWM SAKSHI Administration Protocol Insulin Aspart 1 - 2 units 11/08/24 21:00 11/08/24 20:47 Insulin Aspart (*Bkc) 100 Units/Ml SUB-Q Not Given HS SAKSHI Protocol Ondansetron HCl 4 mg 11/07/24 15:49 Ondansetron Inj 4 Mg/2 Ml Vial IV PUSH Q4H PRN Nausea Perflutren Lipid Microsphere 0 ml 11/07/24 22:48 Perflutren Lipid Microspheres 1.5 Ml Vial Diluted To 10 Ml Total Volume IV PUSH 11/10/24 22:48 ONCE PRN adequate visualization Protocol Radiology Results: ITS Impressions Chest X-Ray 11/07/24 13:33 IMPRESSION: 1. Mild atelectasis at the lung bases. Labs Labs: Laboratory Results - last 24 hr 11/08/24 11/08/24 11/08/24 08:31 09:17 11:21 WBC RBC Hgb Hct MCV MCH MCHC RDW Plt Count MPV APTT Sodium Potassium Chloride Carbon Dioxide Anion Gap BUN Creatinine Estim Creat Clear Calc Estimated GFR Glucose POC Capillary Glucose 145 H 157 H Calcium Total Bilirubin AST ALT Alkaline Phosphatase Troponin I Total Protein Albumin C. difficile (PCR) Negative 11/08/24 11/08/24 11/08/24 13:20 15:41 19:57 WBC RBC Hgb Hct MCV MCH MCHC RDW Plt Count MPV APTT 134.9 H Sodium Potassium Chloride Carbon Dioxide Anion Gap BUN Creatinine Estim Creat Clear Calc Estimated GFR Glucose POC Capillary Glucose 276 H 143 H Calcium Total Bilirubin AST ALT Alkaline Phosphatase Troponin I Total Protein Albumin C. difficile (PCR) 11/08/24 11/09/24 11/09/24 20:16 00:55 03:44 WBC 6.3 RBC 4.79 Hgb 13.1 L Hct 42.1 MCV 87.9 MCH 27.3 MCHC 31.1 L RDW 14.2 Plt Count 174 MPV 11.4 H APTT 59.7 H 119.9 H Sodium 135 L Potassium 3.8 Chloride 107 Carbon Dioxide 27 Anion Gap 1 L BUN 15 D Creatinine 0.90 Estim Creat Clear Calc 51 Estimated GFR > 60 Glucose 159 H POC Capillary Glucose Calcium 9.5 Total Bilirubin 0.5 AST 21 ALT 17 Alkaline Phosphatase 65 Troponin I 1.230 H* 1.500 H* D Total Protein 7.0 Albumin 3.8 C. difficile (PCR) Quality VTE Prophylaxis VTE prophylaxis: pharmacologic ordered (currently on a heparin drip) Hospitalist MIPS Advance Care Plan I have confirmed that the patient's Advanced Care Plan is present, code status is documented, or surrogate decision maker is listed in patient medical record.: Yes Medication Reconciliation I have utilized all available resources to obtain, update and review the patients current medications (includes all prescriptions, OTC, herbals, cannabis, and nutritional supplements).: Yes
[2024-11-09] MEDS: FAMOTIDINE 20 MG/2 ML VIAL IV PUSH ×2 (09:00→21:02)
[2024-11-09 09:26] LABS: Glucose Point of Care 150 mg/dl (65-105)
[2024-11-09] MEDS: MAG HYDROX/AL HYDROX/SIMETH 30 ML UDC PO (10:28)
[2024-11-09 11:38] LABS: Glucose Point of Care 275 mg/dl (65-105)
[2024-11-09 12:11] LABS: Partial Thromboplastin Time 61.2 Seconds (22.3-36.8)
[2024-11-09] MEDS: INSULIN ASPART (*BKC) 100 UNITS/ML SUB-Q ×2 (12:31→18:21)
[2024-11-09] MEDS: HEPARIN SODIUM 5,000 UNITS/ML VIAL 3000 UNITS IV PUSH (12:31)
[2024-11-09] MEDS: allopurinoL 300 MG TABLET PO (14:46)
[2024-11-09 17:00] LABS: Glucose Point of Care 205 mg/dl (65-105)
--- NOTE | 2024-11-09 18:58 | PM.PNCARD ---
Progress Note: A&P Assessment and Plan (1) Non-ST elevation myocardial infarction (NSTEMI): Code(s): I21.4 - Non-ST elevation (NSTEMI) myocardial infarction Status: Acute (2) Hypertension: Code(s): I10 - Essential (primary) hypertension Status: Acute Plan 1. NSTEMI 2. AFib 3. Hypertension 4. Hyperlipidemia 5. ICM -discussed with the head housekeeper as the patient is stable with no chest pain they would prefer to get a CT done on Sunday -continue heparin infusion -continue aspirin statin - DC diltiazem - Toprol XL for ICM and rate control - Will add other GDMT later based on BP - [facility] tomorrow Subjective Date/time seen: 11/09/24 18:58 Interval history: No chest pain On heaprin infusion TTE EF 47% Exam Narrative: General: Well-developed, nontoxic-appearing gentleman sitting up in bed in no acute distress. He appears to be younger than his stated age. Weight: 73 kg. BMI: 21.8. HEENT: PERRL, EOMI. Sclera anicteric. Oral mucosa moist. Neck: Supple. Respiratory: Lungs are clear to auscultation bilaterally. Cardiovascular: Regular rate and rhythm with S1-S2. Chest: No tenderness to palpation over the chest wall. Gastrointestinal: Abdomen is soft, nontender, and nondistended with positive bowel sounds. No guarding or rebound tenderness. Skin: Warm and dry. Extremities: No cyanosis, clubbing, or edema. Radial and pedal pulses intact. Neurological: Alert. Cranial nerves 2-12 are grossly intact. No gross focal deficits to casual conversation. Psychiatric: Pleasant and cooperative with normal mood and affect. Judgment and insight intact. Objective Data Vital Signs Vital Signs: Vital Signs - 24 hr 11/08/24 20:00 11/08/24 20:00 11/08/24 20:00 Temperature 37.1 C Pulse Rate 88 87 Respiratory Rate 16 Blood Pressure 121/61 Pulse Oximetry 100 Oxygen Delivery Room Air 11/08/24 22:00 11/08/24 23:30 11/09/24 00:00 Temperature 37.2 C Pulse Rate 99 71 Respiratory Rate 16 Blood Pressure 114/58 L Pulse Oximetry 99 Oxygen Delivery Room Air 11/09/24 00:00 11/09/24 00:20 11/09/24 00:35 Temperature Pulse Rate 79 79 Respiratory Rate Blood Pressure 141/78 H 141/78 H Pulse Oximetry 98 98 Oxygen Delivery Room Air 11/09/24 00:59 11/09/24 02:00 11/09/24 03:57 Temperature Pulse Rate 66 79 Respiratory Rate Blood Pressure 111/63 Pulse Oximetry 99 Oxygen Delivery Room Air 11/09/24 04:00 11/09/24 04:00 11/09/24 06:00 Temperature 36.4 C L Pulse Rate 71 64 63 Respiratory Rate 16 Blood Pressure 107/55 L Pulse Oximetry 98 Oxygen Delivery 11/09/24 07:40 11/09/24 08:00 11/09/24 08:00 Temperature 36.6 C Pulse Rate 70 70 64 Respiratory Rate 14 14 Blood Pressure 117/58 L Pulse Oximetry 99 99 Oxygen Delivery Room Air 11/09/24 10:00 11/09/24 12:00 11/09/24 12:00 Temperature 37.1 C Pulse Rate 97 77 77 Respiratory Rate 20 20 Blood Pressure 115/58 L Pulse Oximetry 99 99 Oxygen Delivery Room Air 11/09/24 12:00 11/09/24 14:00 11/09/24 16:00 Temperature 36.6 C Pulse Rate 69 85 115 H Respiratory Rate 20 Blood Pressure 117/77 Pulse Oximetry 100 Oxygen Delivery 11/09/24 16:00 11/09/24 16:00 11/09/24 18:00 Temperature Pulse Rate 115 H 132 H 91 Respiratory Rate 20 Blood Pressure Pulse Oximetry 100 Oxygen Delivery Room Air Intake/Output Intake/Output: Intake & Output 11/06/24 11/07/24 11/08/24 11/09/24 23:59 23:59 23:59 23:59 Intake Total 1259.7 1204.9 Output Total 1875 1050 Balance -615.3 154.9 Meds/Results Medications: Active Medications Generic Name Dose Route Start Last Admin Trade Name Freq PRN Reason Stop Dose Admin Acetaminophen 650 mg 11/07/24 22:48 Acetaminophen 325 Mg Tablet PO Q6H PRN Mild Pain (1-3) or Fever Al Hydrox/Mg Hydrox/Simethicone 30 ml 11/09/24 05:09 11/09/24 10:28 Mag Hydrox/Al Hydrox/Simeth 30 Ml Udc PO 30 ml Q6H PRN Administration Indigestion Allopurinol 300 mg 11/09/24 14:15 11/09/24 14:46 Allopurinol 300 Mg Tablet PO 300 mg DAILY SAKSHI Administration Dextrose 12.5 gm 11/07/24 22:49 Dextrose 50% 25 Gm/50 Ml Syringe IV PUSH PRN PRN Hypoglycemia Protocol Diltiazem HCl 120 mg 11/10/24 09:00 Diltiazem Hcl Cd 120 Mg Cap.24hr PO DAILY SAKSHI Famotidine 20 mg 11/07/24 21:00 11/09/24 09:00 Famotidine 20 Mg/2 Ml Vial IV PUSH 20 mg Q12HR SAKSHI Administration Glucagon 1 mg 11/07/24 22:49 Glucagon For Inj 1 Mg Vial IM PRN PRN Hypoglycemia Protocol Glucose 15 gm 11/07/24 22:49 Glucose Oral Gel 15 Gm Of Glucse In 37.5 Gm Tube PO PRN PRN Hypoglycemia Protocol Heparin Sodium (Porcine) 4,000 units 11/07/24 15:28 11/08/24 07:25 Heparin Sodium 5,000 Units/Ml Vial IV PUSH 4,000 units PRN PRN Administration aPTT less than 55 seconds Heparin Sodium (Porcine) 3,000 units 11/07/24 15:28 11/09/24 12:31 Heparin Sodium 5,000 Units/Ml Vial IV PUSH 3,000 units PRN PRN Administration aPTT 55 - 70 seconds Heparin Sodium/Dextrose 25,000 units in 250 mls @ 9 mls/hr 11/07/24 15:30 11/09/24 12:34 Heparin Sodium/D5w 100 Units/Ml IV CONT 900 units/hr .Q24H SAKSHI 9 mls/hr Titration Protocol 900 UNITS/HR Dextrose 1,000 mls @ 100 mls/hr 11/07/24 22:49 Dextrose 5% 1,000 Ml IVPB PRN PRN Hypoglycemia Protocol Insulin Aspart 2 - 5 units 11/08/24 08:00 11/09/24 18:21 Insulin Aspart (*Bkc) 100 Units/Ml SUB-Q 2 units TIDWM SAKSHI Administration Protocol Insulin Aspart 1 - 2 units 11/08/24 21:00 11/08/24 20:47 Insulin Aspart (*Bkc) 100 Units/Ml SUB-Q Not Given HS SAKSHI Protocol Metoprolol Tartrate 12.5 mg 11/09/24 21:00 Metoprolol Tartrate 12.5 Mg Tablet PO Q12HR SAKSHI Ondansetron HCl 4 mg 11/07/24 15:49 Ondansetron Inj 4 Mg/2 Ml Vial IV PUSH Q4H PRN Nausea Perflutren Lipid Microsphere 0 ml 11/07/24 22:48 Perflutren Lipid Microspheres 1.5 Ml Vial Diluted To 10 Ml Total Volume IV PUSH 11/10/24 22:48 ONCE PRN adequate visualization Protocol Radiology Results: ITS Impressions Chest X-Ray 11/07/24 13:33 IMPRESSION: 1. Mild atelectasis at the lung bases. Labs Labs: Laboratory Results - last 24 hr 11/08/24 11/08/24 11/09/24 19:57 20:16 00:55 WBC RBC Hgb Hct MCV MCH MCHC RDW Plt Count MPV APTT 59.7 H Sodium Potassium Chloride Carbon Dioxide Anion Gap BUN Creatinine Estim Creat Clear Calc Estimated GFR Glucose POC Capillary Glucose 143 H Calcium Total Bilirubin AST ALT Alkaline Phosphatase Troponin I 1.230 H* Total Protein Albumin 11/09/24 11/09/24 11/09/24 03:44 07:45 11:29 WBC 6.3 RBC 4.79 Hgb 13.1 L Hct 42.1 MCV 87.9 MCH 27.3 MCHC 31.1 L RDW 14.2 Plt Count 174 MPV 11.4 H APTT 119.9 H Sodium 135 L Potassium 3.8 Chloride 107 Carbon Dioxide 27 Anion Gap 1 L BUN 15 D Creatinine 0.90 Estim Creat Clear Calc 51 Estimated GFR > 60 Glucose 159 H POC Capillary Glucose 150 H 275 H Calcium 9.5 Total Bilirubin 0.5 AST 21 ALT 17 Alkaline Phosphatase 65 Troponin I 1.500 H* D Total Protein 7.0 Albumin 3.8 11/09/24 11/09/24 11:55 16:26 WBC RBC Hgb Hct MCV MCH MCHC RDW Plt Count MPV APTT 61.2 H Sodium Potassium Chloride Carbon Dioxide Anion Gap BUN Creatinine Estim Creat Clear Calc Estimated GFR Glucose POC Capillary Glucose 205 H Calcium Total Bilirubin AST ALT Alkaline Phosphatase Troponin I Total Protein Albumin
[2024-11-09 19:22] LABS: Partial Thromboplastin Time 91.4 Seconds (22.3-36.8)
[2024-11-09 20:53] LABS: Glucose Point of Care 173 mg/dl (65-105)
[2024-11-10] VITALS (37 sets, daily range): BP systolic 93–128; BP diastolic 36–70; PULSE 70–128; RESP 14–29; TEMP 36.2–39.2; O2SAT 95–100; BMI 20.7
[2024-11-10] MEDS: MAG HYDROX/AL HYDROX/SIMETH 30 ML UDC PO (01:33)
--- NOTE | 2024-11-10 01:42 | ECG_ITS ---
Test Date: 2024-11-10 01:47:26 Measurements Intervals [place] Rate: 80 P: 62 CT: 153 QRS: -26 QRSD: 100 T: 81 QT: 371 QTc: 430 Interpretive Statements SINUS RHYTHM SEPTAL MYOCARDIAL INFARCTION [40+ ms Q WAVE IN V1/V2], OF INDETERMINATE AGE MODERATE T-WAVE ABNORMALITY, CONSIDER ANTERIOR ISCHEMIA [-0.1+ mV T WAVE IN V3/V4] Compared to ECG 11/09/2024 00:28:14 No significant changes Electronically Signed On 11-12-2024 16:50:00 ARMATURE BALANCER by Nathaniel Cade M.D.
[2024-11-10] MEDS: CALCIUM CARBONATE (TUMS) 500 MG (200 MG ELEMENTAL) PO (02:11)
[2024-11-10] MEDS: PANTOPRAZOLE SODIUM IV 40 MG VIAL IV PUSH ×3 (02:11→20:54)
[2024-11-10] MEDS: HEPARIN SOD/D5W 100 UNITS/ML 25,000 UNITS/250 ML BAG 9 UNITS IV CONT (02:13)
[2024-11-10 03:08] LABS: Partial Thromboplastin Time 73.3 Seconds (22.3-36.8)
[2024-11-10] MEDS: NITROGLYCERIN SL 0.4 MG TABLET SUBLINGUAL (04:00)
[2024-11-10 07:32] LABS: Glucose Point of Care 226 mg/dl (65-105)
[2024-11-10] MEDS: METOPROLOL SUCCINATE EXT REL 50 MG TABCR PO (08:47)
[2024-11-10] MEDS: allopurinoL 300 MG TABLET PO (08:47)
--- NOTE | 2024-11-10 11:36 | P.SEDATION_ITS ---
Moderate Sedation Note-Pt Data Patient Data Allergies Allergy/AdvReac Type Severity Reaction Status Date / Time lisinopril AdvReac Swelling Verified 08/20/24 11:57 Home Medications ?Medication ?Instructions ?Recorded ?Confirmed ?Type allopurinol 300 mg tablet 300 mg PO DAILY 11/24/19 11/08/24 History metformin 500 mg tablet,extended 1,000 mg PO BID 11/24/19 11/08/24 History release 24 hr omeprazole 20 mg capsule,delayed 20 mg PO BID 11/24/19 11/08/24 History release diltiazem HCl 120 mg 120 mg PO DAILY 10/02/23 11/08/24 History capsule,extended release 12 hr dapagliflozin propanediol 10 mg 5 mg PO DAILY 01/21/24 11/08/24 History tablet (Farxiga) ferrous sulfate 325 mg (65 mg 325 mg PO DAILY 01/21/24 11/08/24 History iron) tablet,delayed release ranolazine 500 mg tablet,extended 500 mg PO BID 01/21/24 11/08/24 History release,12 hr apixaban 5 mg tablet (Eliquis) 5 mg PO Q12H #14 tabs 02/04/24 11/08/24 Rx ezetimibe 10 mg tablet 10 mg PO DAILY 08/20/24 11/08/24 History multivitamin 1 tablet PO DAILY 08/20/24 11/08/24 History Current Medications: Active Medications Acetaminophen (Acetaminophen 325 Mg Tablet) 650 mg PO Q6H PRN PRN Reason: Mild Pain (1-3) or Fever Al Hydrox/Mg Hydrox/Simethicone (Mag Hydrox/Al Hydrox/Simeth 30 Ml Udc) 30 ml PO Q6H PRN PRN Reason: Indigestion Last Admin: 11/10/24 01:33 Dose: 30 ml Allopurinol (Allopurinol 300 Mg Tablet) 300 mg PO DAILY SAKSHI Last Admin: 11/10/24 08:47 Dose: 300 mg Calcium Carbonate (Calcium Carbonate (Tums) 500 Mg (200 Mg Elemental)) 200 mg PO Q6H PRN PRN Reason: Indigestion Last Admin: 11/10/24 02:11 Dose: 200 mg Dextrose (Dextrose 50% 25 Gm/50 Ml Syringe) 12.5 gm IV PUSH PRN PRN; Protocol PRN Reason: Hypoglycemia Glucagon (Glucagon For Inj 1 Mg Vial) 1 mg IM PRN PRN; Protocol PRN Reason: Hypoglycemia Glucose (Glucose Oral Gel 15 Gm Of Glucse In 37.5 Gm Tube) 15 gm PO PRN PRN; Protocol PRN Reason: Hypoglycemia Heparin Sodium (Porcine) (Heparin Sodium 5,000 Units/Ml Vial) 4,000 units IV PUSH PRN PRN PRN Reason: aPTT less than 55 seconds Last Admin: 11/08/24 07:25 Dose: 4,000 units Heparin Sodium (Porcine) (Heparin Sodium 5,000 Units/Ml Vial) 3,000 units IV PUSH PRN PRN PRN Reason: aPTT 55 - 70 seconds Last Admin: 11/09/24 12:31 Dose: 3,000 units Heparin Sodium/Dextrose (Heparin Sodium/D5w 100 Units/Ml) 25,000 units in 250 mls @ 9 mls/hr IV CONT .Q24H SAKSHI; Protocol Last Titration: 11/10/24 03:24 Dose: 900 units/hr, 9 mls/hr Dextrose (Dextrose 5% 1,000 Ml) 1,000 mls @ 100 mls/hr IVPB PRN PRN; Protocol PRN Reason: Hypoglycemia Insulin Aspart (Insulin Aspart (*Bkc) 100 Units/Ml) 2 - 5 units SUB-Q TIDWM SAKSHI; Protocol Last Admin: 11/10/24 08:36 Dose: Not Given Insulin Aspart (Insulin Aspart (*Bkc) 100 Units/Ml) 1 - 2 units SUB-Q HS SAKSHI; Protocol Last Admin: 11/09/24 21:57 Dose: Not Given Metoprolol Succinate (Metoprolol Succinate Ext Rel 50 Mg Tabcr) 50 mg PO QAM [facility] Last Admin: 11/10/24 08:47 Dose: 50 mg Nitroglycerin (Nitroglycerin Sl 0.4 Mg Tablet) 0.4 mg SUBLINGUAL Q5MIN PRN PRN Reason: Chest Pain Last Admin: 11/10/24 04:00 Dose: 0.4 mg Ondansetron HCl (Ondansetron Inj 4 Mg/2 Ml Vial) 4 mg IV PUSH Q4H PRN PRN Reason: Nausea Pantoprazole Sodium (Pantoprazole Sodium Iv 40 Mg Vial) 40 mg IV PUSH Q12HR SAKSHI Last Admin: 11/10/24 08:46 Dose: 40 mg Perflutren Lipid Microsphere (Perflutren Lipid Microspheres 1.5 Ml Vial Diluted To 10 Ml Total Volume) 0 ml IV PUSH ONCE PRN; Protocol PRN Reason: adequate visualization Stop: 11/10/24 22:48 Sedation/Anesthesia: No previous sedation/anesthesia problems (including family history). [facility] Past Medical History Medical History (Updated 11/07/24 @ 22:44 by Rena Preciado PA-C) Chronic anticoagulation Hypertension Paroxysmal atrial flutter Osteoarthritis Gastroesophageal reflux disease Chronic anticoagulation Paroxysmal atrial fibrillation Type 2 diabetes mellitus Duodenal ulcer Hyperlipidemia Gout Surgical History Surgical History (Updated 11/07/24 @ 22:44 by Rena Preciado PA-C) History of bowel resection (02/04/24) Exploratory laparotomy with adhesiolysis an ileal resection with [id number] ileal anastomosis History of esophagogastroduodenoscopy (10/2023) History of bilateral cataract extraction History of appendectomy History of repair of ACL Right Family History Family History Sibling Acute myocardial infarction Cerebrovascular accident Diabetes mellitus Hypertension Mother Diabetes mellitus Social History Social History Social History: Surrogate medical decision maker: Ling Dallas, spouse. Code status: Full code. Smoking status: Never smoker Alcohol intake: never Substance use: never Substance use type: does not use Do You Feel Safe in your Home?: Yes Lack of Transportation: No Lack of Food: Never True Current Housing: I Have Housing Concerned About Future Housing: No Difficulty Paying Gas/Electric Bills: No Difficulty Paying for Meds: No Currently Unemployed: No Education: Bachelor's Degree Difficulty w/ Childcare or Family Care: No Living arrangements: with family Additional living arrangements comments: Lives in [place]. He has three biological children. Occupation/Education: retired Additional occupation/education comments: Retired from [employer]. Spiritual care concerns: No Mod Sed Physical Exam Physical Exam Pre Procedural Exam: Variation: Heart Rate (tachycardic) and Heart Rhythm (frequent pac) Hours since solid foods: 16 Hours since liquid intake: 16 Mallampati Classification: class II Internal Medicine - PN: Obj Da Vital Signs Vital Signs: Vital Signs - 24 hr 11/09/24 12:00 11/09/24 12:00 11/09/24 12:00 Temperature 37.1 C Pulse Rate 77 77 69 Respiratory Rate 20 20 Blood Pressure 115/58 L Pulse Oximetry 99 99 Oxygen Delivery Room Air 11/09/24 14:00 11/09/24 16:00 11/09/24 16:00 Temperature 36.6 C Pulse Rate 85 115 H 115 H Respiratory Rate 20 20 Blood Pressure 117/77 Pulse Oximetry 100 100 Oxygen Delivery Room Air 11/09/24 16:00 11/09/24 18:00 11/09/24 20:00 Temperature Pulse Rate 132 H 91 Respiratory Rate Blood Pressure Pulse Oximetry 100 Oxygen Delivery Room Air 11/09/24 20:00 11/09/24 20:33 11/09/24 23:55 Temperature 36.7 C 36.4 C Pulse Rate 85 74 70 Respiratory Rate 18 16 Blood Pressure 115/59 L 108/52 L Pulse Oximetry 99 98 Oxygen Delivery 11/10/24 00:00 11/10/24 00:00 11/10/24 04:00 Temperature Pulse Rate 70 Respiratory Rate Blood Pressure Pulse Oximetry 100 100 Oxygen Delivery Room Air Room Air 11/10/24 04:00 11/10/24 04:29 11/10/24 05:43 Temperature 36.2 C L Pulse Rate 103 H 105 H 98 Respiratory Rate 14 Blood Pressure 94/52 L Pulse Oximetry 99 Oxygen Delivery 11/10/24 06:59 11/10/24 08:47 Temperature 36.7 C Pulse Rate 96 116 H Respiratory Rate 20 Blood Pressure 106/58 L Pulse Oximetry 100 Oxygen Delivery Intake/Output Intake/Output: Intake & Output 11/07/24 11/08/24 11/09/24 11/10/24 23:59 23:59 23:59 23:59 Intake Total 1259.7 1276.2 404.4 Output Total 1875 1050 275 Balance -615.3 226.2 129.4 Meds/Results Medications: Active Medications Generic Name Dose Route Start Last Admin Trade Name Freq PRN Reason Stop Dose Admin Acetaminophen 650 mg 11/07/24 22:48 Acetaminophen 325 Mg Tablet PO Q6H PRN Mild Pain (1-3) or Fever Al Hydrox/Mg Hydrox/Simethicone 30 ml 11/09/24 05:09 11/10/24 01:33 Mag Hydrox/Al Hydrox/Simeth 30 Ml Udc PO 30 ml Q6H PRN Administration Indigestion Allopurinol 300 mg 11/09/24 14:15 11/10/24 08:47 Allopurinol 300 Mg Tablet PO 300 mg DAILY SAKSHI Administration Calcium Carbonate 200 mg 11/10/24 01:58 11/10/24 02:11 Calcium Carbonate (Tums) 500 Mg (200 Mg Elemental) PO 200 mg Q6H PRN Administration Indigestion Dextrose 12.5 gm 11/07/24 22:49 Dextrose 50% 25 Gm/50 Ml Syringe IV PUSH PRN PRN Hypoglycemia Protocol Glucagon 1 mg 11/07/24 22:49 Glucagon For Inj 1 Mg Vial IM PRN PRN Hypoglycemia Protocol Glucose 15 gm 11/07/24 22:49 Glucose Oral Gel 15 Gm Of Glucse In 37.5 Gm Tube PO PRN PRN Hypoglycemia Protocol Heparin Sodium (Porcine) 4,000 units 11/07/24 15:28 11/08/24 07:25 Heparin Sodium 5,000 Units/Ml Vial IV PUSH 4,000 units PRN PRN Administration aPTT less than 55 seconds Heparin Sodium (Porcine) 3,000 units 11/07/24 15:28 11/09/24 12:31 Heparin Sodium 5,000 Units/Ml Vial IV PUSH 3,000 units PRN PRN Administration aPTT 55 - 70 seconds Heparin Sodium/Dextrose 25,000 units in 250 mls @ 9 mls/hr 11/07/24 15:30 11/10/24 03:24 Heparin Sodium/D5w 100 Units/Ml IV CONT 900 units/hr .Q24H SAKSHI 9 mls/hr Titration Protocol 900 UNITS/HR Dextrose 1,000 mls @ 100 mls/hr 11/07/24 22:49 Dextrose 5% 1,000 Ml IVPB PRN PRN Hypoglycemia Protocol Insulin Aspart 2 - 5 units 11/08/24 08:00 11/10/24 08:36 Insulin Aspart (*Bkc) 100 Units/Ml SUB-Q Not Given TIDWM [facility] Protocol Insulin Aspart 1 - 2 units 11/08/24 21:00 11/09/24 21:57 Insulin Aspart (*Bkc) 100 Units/Ml SUB-Q Not Given HS SAKSHI Protocol Metoprolol Succinate 50 mg 11/10/24 09:00 11/10/24 08:47 Metoprolol Succinate Ext Rel 50 Mg Tabcr PO 50 mg QAM SAKSHI Administration Nitroglycerin 0.4 mg 11/10/24 03:54 11/10/24 04:00 Nitroglycerin Sl 0.4 Mg Tablet SUBLINGUAL 0.4 mg Q5MIN PRN Administration Chest Pain Ondansetron HCl 4 mg 11/07/24 15:49 Ondansetron Inj 4 Mg/2 Ml Vial IV PUSH Q4H PRN Nausea Pantoprazole Sodium 40 mg 11/10/24 02:00 11/10/24 08:46 Pantoprazole Sodium Iv 40 Mg Vial IV PUSH 40 mg Q12HR SAKSHI Administration Perflutren Lipid Microsphere 0 ml 11/07/24 22:48 Perflutren Lipid Microspheres 1.5 Ml Vial Diluted To 10 Ml Total Volume IV PUSH 11/10/24 22:48 ONCE PRN adequate visualization Protocol Radiology Results: ITS Impressions Chest X-Ray 11/07/24 13:33 IMPRESSION: 1. Mild atelectasis at the lung bases. Labs 11/09/24 03:44 11/09/24 03:44 Labs: Laboratory Results - last 24 hr 11/09/24 11/09/24 11/09/24 11:29 11:55 16:26 APTT 61.2 H POC Capillary Glucose 275 H 205 H 11/09/24 11/09/24 11/10/24 18:46 20:50 02:20 APTT 91.4 H 73.3 H POC Capillary Glucose 173 H 11/10/24 07:27 APTT POC Capillary Glucose 226 H ASA Classification/Sedation ASA Classification/Sedation ASA Class: III Emergent: No Risks: Risks, benefits and alternatives explained and patient/family accepted plan for sedation. Patient re-evaluated immediately prior to sedation.
--- NOTE | 2024-11-10 11:36 | WPDHPUPDATE1 ---
History and Physical Update Update Date/Time: 11/10/24 10:26 History and Physical has been reviewed, including an updated exam of the patient. There are NO changes in the patient's condition. Risks, benefits, and alternatives have been discussed and questions answered. Patient agrees to proceed with procedure.
[2024-11-10 12:22] LABS: Glucose Point of Care 231 mg/dl (65-105)
--- NOTE | 2024-11-10 14:04 | P.PCNCC_ITS ---
Cardiac Cath Procedure Note Date of procedure:: 11/10/24 Performing physician:: CATHETERIZATION LABORATORY REPORT Procedure Date: 11/10/2024 Referring Physician: Dr. Hernandez Anesthesia: Versed and Fentanyl were ordered and given in my presence at 1304, procedure ended at 1402. Supervision of nurse, Ketan Dangelo monitored moderate sedation with 2mg Versed and 50mcg Fentanyl was provided for 58 minutes. Pre-op Diagnosis: NSTEMI Post-op Diagnosis: NSTEMI Procedure(s): Left heart catheterization with coronary angiography Access Site: Right radial artery Brief History and Clinical Indications: All risks, benefits and alternatives to left heart catheterization with or without percutaneous coronary intervention was discussed at length with the patient. Risk of complications including but not limited to bleeding, infection, arrhythmia, stroke, worsening kidney function, blood loss, groin hematoma, limb loss, emergency coronary artery bypass grafting, and even were discussed with the patient and all questions were answered. The patient understood and wished to proceed. Time out called, patient name, date of , medical record number, allergies, procedure performed, identify Phlebotomy Support Tech, patient and staff member concurred with accurate data, procedure carried on. Findings: LEFT HEART CATHETERIZATION FINDINGS: 1. Left main: The left main coronary artery is widely patent without any significant obstructive disease. 2. Left anterior descending: The LAD has a 70% stenosis in its midbody. The diagonal branches are angiographically free of high-grade stenosis. 3. Left circumflex: The left circumflex artery is a large caliber vessel that branches off into 3 OM branches. At the OM1 bifurcation there is 70% stenosis in the main body of the left circumflex and at the OM1 ostium, there is a 95% stenosis. OM1 is moderate caliber vessel. 4. Right coronary artery: The RCA has mild luminal irregularities without any significant obstructive angiographic disease. The RCA is the dominant vessel. 5. Left ventricle: A. End-diastolic pressure 9 mmHg. B. LV gram deferred. C. No significant gradient across aortic valve on catheter pullback. 6. Opening AO pressure 89/43 and closing AO pressure 107/61 Description of Procedure: Informed consent signed and placed in the chart. Patient transferred to packing house laborer room. Prepped and draped in usual sterile fashion. 2% lidocaine injected subcutaneously in right wrist area. 22-gauge venipuncture catheter used to access the right radial artery with the Seldinger technique. 6-FR slender sheath placed in right radial artery. Nitroglycerin 200mcg, Verapamil 2.5mg, and Heparin 5000U was given intraarterial through the sheath. J wire advanced under fluoroscopy 5F TIG diagnostic catheter engaged Left Main Coronary Artery. 5F TIG diagnostic catheter engaged Right Coronary Artery Multiple orthogonal angiogram obtained and reviewed 5F Pigtail diagnostic catheter crossed aortic valve to obtain LVEDP, LV angiogram deferred. Procedure Description for PCI: Heparin was used for anticoagulation (ACT maintained above 250) Patient loaded with heparin at 70 units/kg. 6F EBU 3.0 guide catheter was used to intubate the LMCA 0.014 Runthrough coronary wire was passed in to the OM1 vessel. A 2nd 0.014 Runthrough coronary wire was passed in to the OM3 vessel. The OM1 ostium was pre-dilated with a 2.5 x 10mm semi-compliant balloon. The left circumflex was pre-dilated with a 3.0 x 12mm semi-compliant balloon. The OM1 was stented with a 2.5 x 12mm Leobardo Triplett GIOVANNI from the proximal OM1 into the left circumflex vessel. During the deployment of the stent, the patient started to move both his right arm which had the guide catheter inserted as well as his left arm and both legs as he tries to get up so that he can urinate. He was asked multiple times to stop moving and that a urinal was provided and that he can urinate freely while laying down. He agreed to this however right after agreement, he started to move both arms as well as his legs again. This cycle went on for a few more times before the decision was made to stop the procedure at this time given the significant risk of patient moving while there is the equipment in the left coronary system. Follow-up angiograms showed good angiographic result Coronary wire and guide-catheter were removed Pre-procedure - LANCE 3 flow Post-procedure - LANCE 3 flow No angiographic complications identified. Hemostasis was achieved by application of TR band. Assessment: Successful PCI to the OM1 into the left circumflex lesion with a 2.5 x 12mm Leobardo Triplett GIOVANNI. Post Operative Condition: Stable No significant blood loss Disposition: Floor Plan: Triple therapy for 1 month followed by Plavix 75 mg p.o. daily and Eliquis 5 mg p.o. q.12 hours Consider complete revascularization if patient agreeable Continue aggressive risk factor modification Juanito Short Interventional Cardiology
[2024-11-10 14:07] LABS: Activated Clotting Time 205 SEC (74-137)
[2024-11-10] MEDS: ACETAMINOPHEN 325 MG TABLET 650 MG PO (15:44)
[2024-11-10 16:22] LABS: Activated Clotting Time 187 SEC (74-137)
--- NOTE | 2024-11-10 16:55 | P.PNIM_ITS ---
Progress Note: A&P Assessment and Plan (1) Non-ST elevation myocardial infarction (NSTEMI): Code(s): I21.4 - Non-ST elevation (NSTEMI) myocardial infarction Status: Acute (2) Gastroesophageal reflux disease: Code(s): K21.9 - Gastro-esophageal reflux disease without esophagitis Status: Acute (3) Paroxysmal atrial fibrillation: Code(s): I48.0 - Paroxysmal atrial fibrillation Status: Acute (4) Chronic anticoagulation: Code(s): Z79.01 - half-way (current) use of anticoagulants Status: Acute (5) Type 2 diabetes mellitus: Code(s): E11.9 - Type 2 diabetes mellitus without complications Status: Chronic (6) Hypertension: Code(s): I10 - Essential (primary) hypertension Status: Acute Plan The patient presented to the emergency department for evaluation of acid reflux as detailed in HPI. Labs, imaging, EKG, and all reports were personally reviewed. He describes classic GERD symptoms and given his history of duodenal ulcers GI has been consulted for recommendations. Incidentally an EKG and troponins were drawn on the patient upon arrival and he was found to have T-wave inversions in anterior leads and a modestly elevated troponin. His symptoms actually improved with nitroglycerin and he was started on a heparin drip with plans for cardiac catheterization tomorrow per Cardiology. He will be monitored closely in the IMU. Trend troponins to peak. Continue PPI. Hold apixaban as he is on heparin drip. Blood pressures were reviewed and they are stable. Hold metformin due to plans for cardiac catheterization. Initiate sliding scale insulin, Accu-Cheks, and hypoglycemic protocol. The rest of his home medications will be reviewed and resumed as appropriate. Findings and treatment plan were discussed with the patient. 11/10: Since patient didnt return to his room from morning,I went personally to flower shop laborer/designer around 6pm to evaluate the patient. Unfortunately I was not able to see him due to restricted access. The chest pain center nurse called me around 6.40 pm and reported patient had episodes low BP and fluids were given but due to congestion they stopped fluids. She reported his current BP is 90's/40's. I advised to the nurse its better Aluminum Boat Assembly Supervisor can speak to Package Maker and transfer the patient to ICU and monitored for tonight. NTSEMI -Patient underwent cardiac catheterization . -As per Cardiology Triple therapy for 1 month followed by Plavix 75 mg p.o. daily and Eliquis 5 mg p.o. q.12 hours.Consider complete revascularization if patient agreeable.Continue aggressive risk factor modification -I will discuss with Cardiology whether patient needs stent or CABG. -Eliquis on hold -Not on ASA or Statin -Cardiology on board -Underwent Cath approx 10 years ago.Reports no significant finding -3 years underwent ECHO and Stress test which was negative as per patient -Continue heparin drip and give sublingual nitro if needed -Echocardiogram LVEF 47% -Denies any illicit drug use -Reviewed EKG and CXR -Continue Diltiazem 120mg PO QD and Ranolazine 500mg PO BID Gastric Ulcer -Previous hx gastric ulcer . -Recently had increased heart burn ,PCP increased his PPI dose to twice daily. -No recent EGD DM SSI Hold Metformin,Farixga Subjective Date/time seen: 11/10/24 16:55 Interval history: Patient underwent cardiac catheterization . As per Cardiology Triple therapy for 1 month followed by Plavix 75 mg p.o. daily and Eliquis 5 mg p.o. q.12 val rs.Consider complete revascularization if patient agreeable.Continue aggressive risk factor modification I will discuss with Cardiology whether patient needs stent or CABG. Since patient didnt return to his room from morning,I went personally to flower shop laborer/designer around 6pm to evaluate the patient. Unfortunately I was not able to see him due to restricted access. The chest pain center nurse called me around 6.40 pm and reported patient had episodes low BP and fluids were given but due to congestion they stopped fluids. She reported his current BP is 90's/40's. I advised to the nurse its better Aluminum Boat Assembly Supervisor can speak to Package Maker and transfer the patient to ICU and monitored for tonight. Review of Systems Review of Systems: n/a Exam Narrative: n/a Objective Data Vital Signs Vital Signs: Vital Signs - 24 hr 11/09/24 18:00 11/09/24 20:00 11/09/24 20:00 Temperature Pulse Rate 91 85 Pulse Rate [Bilateral Pedal (Dorsalis Pedis) Palpation] Respiratory Rate Blood Pressure Pulse Oximetry 100 Oxygen Delivery Room Air 11/09/24 20:33 11/09/24 23:55 11/10/24 00:00 Temperature 98.1 F 97.6 F Pulse Rate 74 70 Pulse Rate [Bilateral Pedal (Dorsalis Pedis) Palpation] Respiratory Rate 18 16 Blood Pressure 115/59 L 108/52 L Pulse Oximetry 99 98 100 Oxygen Delivery Room Air 11/10/24 00:00 11/10/24 04:00 11/10/24 04:00 Temperature Pulse Rate 70 103 H Pulse Rate [Bilateral Pedal (Dorsalis Pedis) Palpation] Respiratory Rate Blood Pressure Pulse Oximetry 100 Oxygen Delivery Room Air 11/10/24 04:29 11/10/24 05:43 11/10/24 06:59 Temperature 97.2 F L 98.0 F Pulse Rate 105 H 98 96 Pulse Rate [Bilateral Pedal (Dorsalis Pedis) Palpation] Respiratory Rate 14 20 Blood Pressure 94/52 L 106/58 L Pulse Oximetry 99 100 Oxygen Delivery 11/10/24 08:00 11/10/24 08:47 11/10/24 11:54 Temperature 97.6 F Pulse Rate 116 H 122 H Pulse Rate [Bilateral Pedal (Dorsalis Pedis) Palpation] Respiratory Rate 18 Blood Pressure 109/70 Pulse Oximetry 100 Oxygen Delivery Room Air 11/10/24 14:30 11/10/24 14:45 11/10/24 14:45 Temperature 102.6 F H Pulse Rate 119 H 118 H Pulse Rate [Bilateral Pedal (Dorsalis Pedis) Palpation] 118 H Respiratory Rate 29 H 29 H Blood Pressure 111/61 113/50 L Pulse Oximetry 95 96 Oxygen Delivery Room Air Room Air 11/10/24 15:00 11/10/24 15:19 11/10/24 15:30 Temperature Pulse Rate 118 H 118 H Pulse Rate [Bilateral Pedal (Dorsalis Pedis) Palpation] 119 H Respiratory Rate 27 H 28 H Blood Pressure 114/51 L 115/45 L Pulse Oximetry 96 96 Oxygen Delivery Room Air Room Air 11/10/24 15:30 11/10/24 15:45 11/10/24 16:00 Temperature Pulse Rate 119 H 115 H 103 H Pulse Rate [Bilateral Pedal (Dorsalis Pedis) Palpation] Respiratory Rate 28 H 24 H 28 H Blood Pressure 110/49 L 101/50 L 103/46 L Pulse Oximetry 96 96 95 Oxygen Delivery Room Air Room Air Room Air 11/10/24 16:15 11/10/24 16:30 11/10/24 16:45 Temperature Pulse Rate 97 112 H 111 H Pulse Rate [Bilateral Pedal (Dorsalis Pedis) Palpation] Respiratory Rate 26 H 24 H 24 H Blood Pressure 108/51 L 107/53 L 111/49 L Pulse Oximetry 97 95 97 Oxygen Delivery Room Air Room Air Room Air Intake/Output Intake/Output: Intake & Output 11/07/24 11/08/24 11/09/24 11/10/24 23:59 23:59 23:59 23:59 Intake Total 1259.7 1276.2 404.4 Output Total 1875 1050 275 Balance -615.3 226.2 129.4 Meds/Results Medications: Active Medications Generic Name Dose Route Start Last Admin Trade Name Freq PRN Reason Stop Dose Admin Acetaminophen 650 mg 11/07/24 22:48 11/10/24 15:44 Acetaminophen 325 Mg Tablet PO 650 mg Q6H PRN Administration Mild Pain (1-3) or Fever Al Hydrox/Mg Hydrox/Simethicone 30 ml 11/09/24 05:09 11/10/24 01:33 Mag Hydrox/Al Hydrox/Simeth 30 Ml Udc PO 30 ml Q6H PRN Administration Indigestion Allopurinol 300 mg 11/09/24 14:15 11/10/24 08:47 Allopurinol 300 Mg Tablet PO 300 mg DAILY SAKSHI Administration Aspirin 81 mg 11/11/24 09:00 Aspirin 81 Mg Enteric Tablet PO QAM [facility] Atorvastatin Calcium 80 mg 11/10/24 18:00 Atorvastatin 40 Mg Tablet PO EVENING SAKSHI Calcium Carbonate 200 mg 11/10/24 01:58 11/10/24 02:11 Calcium Carbonate (Tums) 500 Mg (200 Mg Elemental) PO 200 mg Q6H PRN Administration Indigestion Clopidogrel Bisulfate 75 mg 11/11/24 09:00 Clopidogrel Bisulfate 75 Mg Tablet PO QAM [facility] Dextrose 12.5 gm 11/07/24 22:49 Dextrose 50% 25 Gm/50 Ml Syringe IV PUSH PRN PRN Hypoglycemia Protocol Glucagon 1 mg 11/07/24 22:49 Glucagon For Inj 1 Mg Vial IM PRN PRN Hypoglycemia Protocol Glucose 15 gm 11/07/24 22:49 Glucose Oral Gel 15 Gm Of Glucse In 37.5 Gm Tube PO PRN PRN Hypoglycemia Protocol Heparin Sodium (Porcine) 4,000 units 11/07/24 15:28 11/08/24 07:25 Heparin Sodium 5,000 Units/Ml Vial IV PUSH 4,000 units PRN PRN Administration aPTT less than 55 seconds Heparin Sodium (Porcine) 3,000 units 11/07/24 15:28 11/09/24 12:31 Heparin Sodium 5,000 Units/Ml Vial IV PUSH 3,000 units PRN PRN Administration aPTT 55 - 70 seconds Heparin Sodium/Dextrose 25,000 units in 250 mls @ 9 mls/hr 11/07/24 15:30 11/10/24 03:24 Heparin Sodium/D5w 100 Units/Ml IV CONT 900 units/hr .Q24H SAKSHI 9 mls/hr Titration Protocol 900 UNITS/HR Dextrose 1,000 mls @ 100 mls/hr 11/07/24 22:49 Dextrose 5% 1,000 Ml IVPB PRN PRN Hypoglycemia Protocol Sodium Chloride 1,000 mls @ 125 mls/hr 11/10/24 14:04 Normal Saline Iv IV CONT 11/10/24 22:03 .Q8H ONE Sodium Chloride 1,000 mls @ 125 mls/hr 11/10/24 14:18 Normal Saline Iv IV CONT 11/10/24 22:17 .Q8H ONE Insulin Aspart 2 - 5 units 11/08/24 08:00 11/10/24 08:36 Insulin Aspart (*Bkc) 100 Units/Ml SUB-Q Not Given TIDWM [facility] Protocol Insulin Aspart 1 - 2 units 11/08/24 21:00 11/09/24 21:57 Insulin Aspart (*Bkc) 100 Units/Ml SUB-Q Not Given HS [facility] Protocol Metoprolol Succinate 50 mg 11/10/24 09:00 11/10/24 08:47 Metoprolol Succinate Ext Rel 50 Mg Tabcr PO 50 mg QAM SAKSHI Administration Nitroglycerin 0.4 mg 11/10/24 03:54 11/10/24 04:00 Nitroglycerin Sl 0.4 Mg Tablet SUBLINGUAL 0.4 mg Q5MIN PRN Administration Chest Pain Ondansetron HCl 4 mg 11/07/24 15:49 Ondansetron Inj 4 Mg/2 Ml Vial IV PUSH Q4H PRN Nausea Pantoprazole Sodium 40 mg 11/10/24 02:00 11/10/24 08:46 Pantoprazole Sodium Iv 40 Mg Vial IV PUSH 40 mg Q12HR SAKSHI Administration Perflutren Lipid Microsphere 0 ml 11/07/24 22:48 Perflutren Lipid Microspheres 1.5 Ml Vial Diluted To 10 Ml Total Volume IV PUSH 11/10/24 22:48 ONCE PRN adequate visualization Protocol Radiology Results: ITS Impressions Chest X-Ray 11/07/24 13:33 IMPRESSION: 1. Mild atelectasis at the lung bases. Labs Labs: Laboratory Results - last 24 hr 11/09/24 11/09/24 11/09/24 16:26 18:46 20:50 APTT 91.4 H Activ Coag Time Kaolin POC Capillary Glucose 205 H 173 H 11/10/24 11/10/24 11/10/24 02:20 07:27 11:57 APTT 73.3 H Activ Coag Time Kaolin POC Capillary Glucose 226 H 231 H 11/10/24 11/10/24 13:25 16:17 APTT Activ Coag Time Kaolin 205 H 187 H POC Capillary Glucose Quality VTE Prophylaxis VTE prophylaxis: pharmacologic ordered (currently on a heparin drip) Hospitalist MIPS Advance Care Plan I have confirmed that the patient's Advanced Care Plan is present, code status is documented, or surrogate decision maker is listed in patient medical record.: Yes Medication Reconciliation I have utilized all available resources to obtain, update and review the patients current medications (includes all prescriptions, OTC, herbals, cannabis, and nutritional supplements).: Yes
[2024-11-10 17:59] LABS: Activated Clotting Time 176 SEC (74-137)
--- NOTE | 2024-11-10 20:21 | PC.NURSE ---
This patient, Gene Yen, was received from [employer] Manager on 11/10/24 at 2020. Patient/family oriented to unit policies and routines
[2024-11-10 20:38] LABS: Glucose Point of Care 205 mg/dl (65-105)
[2024-11-10] MEDS: ATORVASTATIN 40 MG TABLET 80 MG PO (20:54)
[2024-11-10] MEDS: INSULIN ASPART (*BKC) 100 UNITS/ML SUB-Q (22:27)
[2024-11-11] VITALS (15 sets, daily range): BP systolic 97–148; BP diastolic 43–74; PULSE 78–132; RESP 14–18; TEMP 36.3–37.3; O2SAT 94–100
[2024-11-11 04:19] LABS: Partial Thromboplastin Time 80.4 Seconds (22.3-36.8)
--- NOTE | 2024-11-11 08:06 | P.PNIM_ITS ---
Progress Note: A&P Assessment and Plan (1) Non-ST elevation myocardial infarction (NSTEMI): Code(s): I21.4 - Non-ST elevation (NSTEMI) myocardial infarction Status: Acute (2) Gastroesophageal reflux disease: Code(s): K21.9 - Gastro-esophageal reflux disease without esophagitis Status: Acute (3) Paroxysmal atrial fibrillation: Code(s): I48.0 - Paroxysmal atrial fibrillation Status: Acute (4) Chronic anticoagulation: Code(s): Z79.01 - nursing home (current) use of anticoagulants Status: Acute (5) Type 2 diabetes mellitus: Code(s): E11.9 - Type 2 diabetes mellitus without complications Status: Chronic (6) Hypertension: Code(s): I10 - Essential (primary) hypertension Status: Acute Plan The patient presented to the emergency department for evaluation of acid reflux as detailed in HPI. Labs, imaging, EKG, and all reports were personally reviewed. He describes classic GERD symptoms and given his history of duodenal ulcers GI has been consulted for recommendations. Incidentally an EKG and troponins were drawn on the patient upon arrival and he was found to have T-wave inversions in anterior leads and a modestly elevated troponin. His symptoms actually improved with nitroglycerin and he was started on a heparin drip with plans for cardiac catheterization tomorrow per Cardiology. He will be monitored closely in the IMU. Trend troponins to peak. Continue PPI. Hold apixaban as he is on heparin drip. Blood pressures were reviewed and they are stable. Hold metformin due to plans for cardiac catheterization. Initiate sliding scale insulin, Accu-Cheks, and hypoglycemic protocol. The rest of his home medications will be reviewed and resumed as appropriate. Findings and treatment plan were discussed with the patient. 11/10: Since patient didnt return to his room from morning,I went personally to carpenter labor supervisor around 6pm to evaluate the patient. Unfortunately I was not able to see him due to restricted access. The chest pain center nurse called me around 6.40 pm and reported patient had episodes low BP and fluids were given but due to congestion they stopped fluids. She reported his current BP is 90's/40's. I advised to the nurse its better Mat Weaver can speak to [employer] Bus Driver and transfer the patient to ICU and monitored for tonight. NTSEMI -Patient underwent cardiac catheterization on 11/11/2024. -As per Cardiology Triple therapy for 1 month followed by Plavix 75 mg p.o. daily and Eliquis 5 mg p.o. q.12 hours.Consider complete revascularization if patient agreeable.Continue aggressive risk factor modification -on heparin drip -Eliquis on hold -Not on ASA or Statin -Cardiology on board -Underwent Cath approx 10 years ago.Reports no significant finding -3 years underwent ECHO and Stress test which was negative as per patient -Continue heparin drip and give sublingual nitro if needed -Echocardiogram LVEF 47% -Denies any illicit drug use -Reviewed EKG and CXR -Continue Diltiazem 120mg PO QD and Ranolazine 500mg PO BID Gastric Ulcer -Previous hx gastric ulcer . -Recently had increased heart burn ,PCP increased his PPI dose to twice daily. -No recent EGD DM SSI Hold Metformin,Farixga Subjective Date/time seen: 11/11/24 08:06 Interval history: Patient underwent cardiac catheterization yesterday. As per nurse patient had some reaction to anesthetics while he underwent cardiac catheterization yesterday. Cardiology can place only one stent. As per the patient, he was told he needed another cath. As per cardiology,successful PCI to the OM1 into the left circumflex lesion with a 2.5 x 12mm [place] GIOAVNNI Of note, the patient has a duodenal ulcer. His last EGD was 2 years ago. He reports that the ulcer is healed, but he has had some abdominal pain lately. His PCP increased his PPI dose. He was supposed to visit GI, but he could not visit due to hospitalization. Review of Systems Review of Systems: n/a Exam Narrative: n/a Objective Data Vital Signs Vital Signs: Vital Signs - 24 hr 11/10/24 08:47 11/10/24 10:00 11/10/24 11:54 Temperature 97.6 F Pulse Rate 116 H 127 H 122 H Pulse Rate [Bilateral Pedal (Dorsalis Pedis) Palpation] Respiratory Rate 18 Blood Pressure 109/70 Pulse Oximetry 100 Oxygen Delivery Oxygen Flow Rate 11/10/24 12:00 11/10/24 12:00 11/10/24 14:30 Temperature 102.6 F H Pulse Rate 122 H 119 H Pulse Rate [Bilateral Pedal (Dorsalis Pedis) Palpation] Respiratory Rate 29 H Blood Pressure 111/61 Pulse Oximetry 95 Oxygen Delivery Room Air Room Air Oxygen Flow Rate 11/10/24 14:45 11/10/24 14:45 11/10/24 15:00 Temperature Pulse Rate 118 H 118 H Pulse Rate [Bilateral Pedal (Dorsalis Pedis) Palpation] 118 H Respiratory Rate 29 H 27 H Blood Pressure 113/50 L 114/51 L Pulse Oximetry 96 96 Oxygen Delivery Room Air Room Air Oxygen Flow Rate 11/10/24 15:19 11/10/24 15:30 11/10/24 15:30 Temperature Pulse Rate 118 H 119 H Pulse Rate [Bilateral Pedal (Dorsalis Pedis) Palpation] 119 H Respiratory Rate 28 H 28 H Blood Pressure 115/45 L 110/49 L Pulse Oximetry 96 96 Oxygen Delivery Room Air Room Air Oxygen Flow Rate 11/10/24 15:45 11/10/24 16:00 11/10/24 16:15 Temperature Pulse Rate 115 H 103 H 97 Pulse Rate [Bilateral Pedal (Dorsalis Pedis) Palpation] Respiratory Rate 24 H 28 H 26 H Blood Pressure 101/50 L 103/46 L 108/51 L Pulse Oximetry 96 95 97 Oxygen Delivery Room Air Room Air Room Air Oxygen Flow Rate 11/10/24 16:30 11/10/24 16:45 11/10/24 17:00 Temperature Pulse Rate 112 H 111 H 113 H Pulse Rate [Bilateral Pedal (Dorsalis Pedis) Palpation] Respiratory Rate 24 H 24 H 26 H Blood Pressure 107/53 L 111/49 L 108/51 L Pulse Oximetry 95 97 97 Oxygen Delivery Room Air Room Air Room Air Oxygen Flow Rate 11/10/24 17:15 11/10/24 17:30 11/10/24 17:45 Temperature Pulse Rate 105 H 104 H 108 H Pulse Rate [Bilateral Pedal (Dorsalis Pedis) Palpation] Respiratory Rate 27 H 27 H 23 H Blood Pressure 97/46 L 102/58 L Pulse Oximetry 97 97 97 Oxygen Delivery Room Air Nasal Cannula Room Air Oxygen Flow Rate 2 11/10/24 18:00 11/10/24 18:15 11/10/24 18:30 Temperature Pulse Rate 106 H 104 H 99 Pulse Rate [Bilateral Pedal (Dorsalis Pedis) Palpation] Respiratory Rate 24 H 24 H 24 H Blood Pressure 100/56 L 104/40 L 98/38 L Pulse Oximetry 97 98 98 Oxygen Delivery Room Air Room Air Room Air Oxygen Flow Rate 11/10/24 18:45 11/10/24 19:00 11/10/24 19:15 Temperature Pulse Rate 99 94 98 Pulse Rate [Bilateral Pedal (Dorsalis Pedis) Palpation] Respiratory Rate 23 H 22 H 22 H Blood Pressure 98/43 L 93/36 L 108/37 L Pulse Oximetry 99 98 98 Oxygen Delivery Room Air Room Air Room Air Oxygen Flow Rate 11/10/24 19:30 11/10/24 19:45 11/10/24 20:00 Temperature Pulse Rate 93 99 96 Pulse Rate [Bilateral Pedal (Dorsalis Pedis) Palpation] Respiratory Rate 22 H 24 H 22 H Blood Pressure 95/50 L 100/55 L 107/41 L Pulse Oximetry 98 99 95 Oxygen Delivery Room Air Room Air Room Air Oxygen Flow Rate 11/10/24 20:00 11/10/24 20:50 11/10/24 21:49 Temperature 97.6 F 97.6 F Pulse Rate 99 92 Pulse Rate [Bilateral Pedal (Dorsalis Pedis) Palpation] Respiratory Rate 18 Blood Pressure 120/53 L 120/53 L Pulse Oximetry 95 100 Oxygen Delivery Room Air Oxygen Flow Rate 11/10/24 22:00 11/10/24 23:15 11/11/24 00:00 Temperature 97.7 F Pulse Rate 98 97 Pulse Rate [Bilateral Pedal (Dorsalis Pedis) Palpation] Respiratory Rate 18 Blood Pressure 128/64 Pulse Oximetry 100 Oxygen Delivery Room Air Oxygen Flow Rate 11/11/24 00:00 11/11/24 00:04 11/11/24 04:00 Temperature 97.7 F Pulse Rate 112 H 100 Pulse Rate [Bilateral Pedal (Dorsalis Pedis) Palpation] Respiratory Rate Blood Pressure 136/74 Pulse Oximetry 100 Oxygen Delivery Room Air Oxygen Flow Rate 11/11/24 04:00 11/11/24 04:49 Temperature 97.8 F Pulse Rate 87 92 Pulse Rate [Bilateral Pedal (Dorsalis Pedis) Palpation] Respiratory Rate 18 Blood Pressure 120/52 L Pulse Oximetry 100 Oxygen Delivery Oxygen Flow Rate Intake/Output Intake/Output: Intake & Output 11/08/24 11/09/24 11/10/24 11/11/24 23:59 23:59 23:59 23:59 Intake Total 1259.7 1276.2 1053.9 655.5 Output Total 1875 1050 275 1 Balance -615.3 226.2 778.9 654.5 Meds/Results Medications: Active Medications Generic Name Dose Route Start Last Admin Trade Name Micahq PRN Reason Stop Dose Admin Acetaminophen 650 mg 11/07/24 22:48 11/10/24 15:44 Acetaminophen 325 Mg Tablet PO 650 mg Q6H PRN Administration Mild Pain (1-3) or Fever Al Hydrox/Mg Hydrox/Simethicone 30 ml 11/09/24 05:09 11/10/24 01:33 Mag Hydrox/Al Hydrox/Simeth 30 Ml Udc PO 30 ml Q6H PRN Administration Indigestion Allopurinol 300 mg 11/09/24 14:15 11/10/24 08:47 Allopurinol 300 Mg Tablet PO 300 mg DAILY SAKSHI Administration Aspirin 81 mg 11/11/24 09:00 Aspirin 81 Mg [facility]ic [facility] Atorvastatin Calcium 80 mg 11/10/24 18:00 11/10/24 20:54 Atorvastatin 40 Mg Tablet PO 80 mg EVENING SAKSHI Administration Calcium Carbonate 200 mg 11/10/24 01:58 11/10/24 02:11 Calcium Carbonate (Tums) 500 Mg (200 Mg Elemental) PO 200 mg Q6H PRN Administration Indigestion Clopidogrel Bisulfate 75 mg 11/11/24 09:00 Clopidogrel Bisulfate 75 Mg Tablet PO QAM [facility] Dextrose 12.5 gm 11/07/24 22:49 Dextrose 50% 25 Gm/50 Ml Syringe IV PUSH PRN PRN Hypoglycemia Protocol Glucagon 1 mg 11/07/24 22:49 Glucagon For Inj 1 Mg Vial IM PRN PRN Hypoglycemia Protocol Glucose 15 gm 11/07/24 22:49 Glucose Oral Gel 15 Gm Of Glucse In 37.5 Gm Tube PO PRN PRN Hypoglycemia Protocol Heparin Sodium (Porcine) 4,000 units 11/07/24 15:28 11/08/24 07:25 Heparin Sodium 5,000 Units/Ml Vial IV PUSH 4,000 units PRN PRN Administration aPTT less than 55 seconds Heparin Sodium (Porcine) 3,000 units 11/07/24 15:28 11/09/24 12:31 Heparin Sodium 5,000 Units/Ml Vial IV PUSH 3,000 units PRN PRN Administration aPTT 55 - 70 seconds Heparin Sodium/Dextrose 25,000 units in 250 mls @ 9 mls/hr 11/07/24 15:30 05/29 04:24 Heparin Sodium/D5w 100 Units/Ml IV CONT 900 units/hr .Q24H SAKSHI 9 mls/hr Titration Protocol 900 UNITS/HR Dextrose 1,000 mls @ 100 mls/hr 11/07/24 22:49 Dextrose 5% 1,000 Ml IVPB PRN PRN Hypoglycemia Protocol Insulin Aspart 2 - 5 units 11/08/24 08:00 11/10/24 19:35 Insulin Aspart (*Bkc) 100 Units/Ml SUB-Q Not Given TIDWM [facility] Protocol Insulin Aspart 1 - 2 units 11/08/24 21:00 11/10/24 22:27 Insulin Aspart (*Bkc) 100 Units/Ml SUB-Q 1 units HS SAKSHI Administration Protocol Metoprolol Succinate 50 mg 11/10/24 09:00 11/10/24 08:47 Metoprolol Succinate Ext Rel 50 Mg Tabcr PO 50 mg QAM SAKSHI Administration Nitroglycerin 0.4 mg 11/10/24 03:54 11/10/24 04:00 Nitroglycerin Sl 0.4 Mg Tablet SUBLINGUAL 0.4 mg Q5MIN PRN Administration Chest Pain Ondansetron HCl 4 mg 11/07/24 15:49 Ondansetron Inj 4 Mg/2 Ml Vial IV PUSH Q4H PRN Nausea Pantoprazole Sodium 40 mg 11/10/24 02:00 11/10/24 20:54 Pantoprazole Sodium Iv 40 Mg Vial IV PUSH 40 mg Q12HR SAKSHI Administration Radiology Results: ITS Impressions Chest X-Ray 11/07/24 13:33 IMPRESSION: 1. Mild atelectasis at the lung bases. Labs Labs: Laboratory Results - last 24 hr 11/10/24 11/10/24 11/10/24 11:57 13:25 16:17 APTT Activ Coag Time Kaolin 205 H 187 H POC Capillary Glucose 231 H 11/10/24 11/10/24 11/11/24 17:16 20:28 03:59 APTT 80.4 H Activ Coag Time Kaolin 176 H POC Capillary Glucose 205 H Quality VTE Prophylaxis VTE prophylaxis: pharmacologic ordered (currently on a heparin drip) Hospitalist MIPS Advance Care Plan I have confirmed that the patient's Advanced Care Plan is present, code status is documented, or surrogate decision maker is listed in patient medical record.: Yes Medication Reconciliation I have utilized all available resources to obtain, update and review the patients current medications (includes all prescriptions, OTC, herbals, cannabis, and nutritional supplements).: Yes
[2024-11-11 08:12] LABS: Glucose Point of Care 191 mg/dl (65-105)
[2024-11-11] MEDS: CLOPIDOGREL BISULFATE 75 MG TABLET PO (09:19)
[2024-11-11] MEDS: METOPROLOL SUCCINATE EXT REL 50 MG TABCR PO (09:19)
[2024-11-11] MEDS: allopurinoL 300 MG TABLET PO (09:20)
[2024-11-11] MEDS: ASPIRIN 81 MG ENTERIC TABLET PO (09:20)
[2024-11-11] MEDS: PANTOPRAZOLE SODIUM IV 40 MG VIAL IV PUSH (09:23)
[2024-11-11 10:03] LABS: Hematocrit 36.5 % (42.0-52.0); Hemoglobin 11.9 g/dL (14.0-18.0); Mean Corpuscular HGB Conc 32.6 g/dl (32-36); Mean Corpuscular Hemoglobin 28.1 pg (26-34); Mean Corpuscular Volume 86.3 fl (80-100); Mean Platelet Volume 11.6 fl (7.4-10.4); Platelet Count Result 144 k/mm3 (150-375); Red Blood Count 4.23 M/mm3 (4.6-6.20); Red Cell Distribution Width 14.6 % (11.5-14.5); White Blood Count 9.9 K/mm3 (4.5-10.0)
[2024-11-11 10:16] LABS: Anion Gap 5 mmol/L (4-12); Blood Urea Nitrogen 17 mg/dL (9-20); Calcium 9.1 mg/dL (8.4-10.2); Carbon Dioxide 27 mmol/L (22-30); Chloride 103 mmol/L (98-107); Estimated CRCL calculation 52 ml/min; Estimated Glomerular Filt Rate > 60; Glucose 253 mg/dL (65-110); Potassium 3.9 mmol/L (3.4-5.0); Sodium 135 mmol/L (137-145)
[2024-11-11 10:34] LABS: Partial Thromboplastin Time 71.5 Seconds (22.3-36.8)
--- NOTE | 2024-11-11 11:51 | P.PNCA_ITS ---
Progress Note: A&P Assessment and Plan (1) Non-ST elevation myocardial infarction (NSTEMI): Code(s): I21.4 - Non-ST elevation (NSTEMI) myocardial infarction Status: Acute Plan 1. NSTEMI Cardiac catheterization 11/10: Successful PCI to the OM1 into the left circumflex lesion with a 2.5 x 12mm [place] GIOVANNI. Case was difficult due to patient agitation and movement during the case. Initial plan was to bifurcation stenting of the LCX and OM, however, during the deployment of the stent, the patient started to move both his right arm which had the guide catheter inserted as well as his left arm and both legs as he tries to get up so that he can urinate. He was asked multiple times to stop moving and that a urinal was provided and that he can urinate freely while laying down. He agreed to this however right after agreement, he started to move both arms as well as his legs again. This cycle went on for a few more times before the decision was made to stop the procedure at this time given the significant risk of patient moving while there is the equipment in the left coronary system. He also does have a 70% stenosis in the mid LAD that will need to be addressed as well. At this time, patient is feeling well and has no chest pain or other anginals symptoms, so can pursue staged PCI as an outpatient. Will do triple therapy for 1 month with ASA, Plavix, Eliquis. After 1 month, continue with Plavix and Eliquis. Plavix prescription sent to [facility]. Continue high intensity statin, beta car 2. Heart failure with mildly reduced LVEF Echocardiogram this admission shows LVEF of 47%. Has an allergic reaction to Lisinopril (Swelling), therefore, will avoid ACEi/ARB/ARNI for now. Continue Toprol. On Farxiga at home, can continue. Will hold off on [facility] GDMT at this time as blood pressures on the softer side. Can optimize as an outpatient. 3. Hypertension Continue Toprol. 4. Hyperlipidemia Continue high intensity statin 5. GERD Continue PPI, especially while on triple therapy. Patient's primary social service liaison is Dr. Jaeger with [facility], and patient was previously going to [facility], however, he states [facility] no longer takes his insurance and therefore, would prefer to come back to [place] for any inpatient needs, and is therefore considering switching over cardiologists with our group. Will arrange follow up with Dr. Short. Recommendations and plan discussed with the Hospitalist. Subjective Date/time seen: 11/11/24 11:51 Interval history: Reason for visit: NSTEMI Feeling well this morning. No chest pain, shortness of breath or other cardiac symptoms. Review of Systems Review of Systems: All systems reviewed & are unremarkable except as noted in HPI and below (HPI) Exam Const: General: comfortable and no acute distress HENMT: Mouth: Yes moist mucous membranes Eyes: General: appearance normal, both eyes and all related structures Sclera: sclerae normal Resp: Effort & Inspection: normal respiratory effort Cardio: Rate: regular rate Rhythm: regular rhythm Skin: General skin exam: normal color Neuro: Speech: normal speech Psych: Mental Status: mental status grossly normal Affect: normal affect Objective Data Vital Signs Vital Signs: Vital Signs - 24 hr 11/10/24 11:54 11/10/24 12:00 11/10/24 12:00 Temperature 36.4 C Pulse Rate 122 H 122 H Pulse Rate [Bilateral Pedal (Dorsalis Pedis) Palpation] Respiratory Rate 18 Blood Pressure 109/70 Pulse Oximetry 100 Oxygen Delivery Room Air Oxygen Flow Rate 11/10/24 14:30 11/10/24 14:45 11/10/24 14:45 Temperature 39.2 C H Pulse Rate 119 H 118 H Pulse Rate [Bilateral Pedal (Dorsalis Pedis) Palpation] 118 H Respiratory Rate 29 H 29 H Blood Pressure 111/61 113/50 L Pulse Oximetry 95 96 Oxygen Delivery Room Air Room Air Oxygen Flow Rate 11/10/24 15:00 11/10/24 15:19 11/10/24 15:30 Temperature Pulse Rate 118 H 118 H Pulse Rate [Bilateral Pedal (Dorsalis Pedis) Palpation] 119 H Respiratory Rate 27 H 28 H Blood Pressure 114/51 L 115/45 L Pulse Oximetry 96 96 Oxygen Delivery Room Air Room Air Oxygen Flow Rate 11/10/24 15:30 11/10/24 15:45 11/10/24 16:00 Temperature Pulse Rate 119 H 115 H 103 H Pulse Rate [Bilateral Pedal (Dorsalis Pedis) Palpation] Respiratory Rate 28 H 24 H 28 H Blood Pressure 110/49 L 101/50 L 103/46 L Pulse Oximetry 96 96 95 Oxygen Delivery Room Air Room Air Room Air Oxygen Flow Rate 11/10/24 16:15 11/10/24 16:30 11/10/24 16:45 Temperature Pulse Rate 97 112 H 111 H Pulse Rate [Bilateral Pedal (Dorsalis Pedis) Palpation] Respiratory Rate 26 H 24 H 24 H Blood Pressure 108/51 L 107/53 L 111/49 L Pulse Oximetry 97 95 97 Oxygen Delivery Room Air Room Air Room Air Oxygen Flow Rate 11/10/24 17:00 11/10/24 17:15 11/10/24 17:30 Temperature Pulse Rate 113 H 105 H 104 H Pulse Rate [Bilateral Pedal (Dorsalis Pedis) Palpation] Respiratory Rate 26 H 27 H 27 H Blood Pressure 108/51 L 97/46 L Pulse Oximetry 97 97 97 Oxygen Delivery Room Air Room Air Nasal Cannula Oxygen Flow Rate 2 11/10/24 17:45 11/10/24 18:00 11/10/24 18:15 Temperature Pulse Rate 108 H 106 H 104 H Pulse Rate [Bilateral Pedal (Dorsalis Pedis) Palpation] Respiratory Rate 23 H 24 H 24 H Blood Pressure 102/58 L 100/56 L 104/40 L Pulse Oximetry 97 97 98 Oxygen Delivery Room Air Room Air Room Air Oxygen Flow Rate 11/10/24 18:30 11/10/24 18:45 11/10/24 19:00 Temperature Pulse Rate 99 99 94 Pulse Rate [Bilateral Pedal (Dorsalis Pedis) Palpation] Respiratory Rate 24 H 23 H 22 H Blood Pressure 98/38 L 98/43 L 93/36 L Pulse Oximetry 98 99 98 Oxygen Delivery Room Air Room Air Room Air Oxygen Flow Rate 11/10/24 19:15 11/10/24 19:30 11/10/24 19:45 Temperature Pulse Rate 98 93 99 Pulse Rate [Bilateral Pedal (Dorsalis Pedis) Palpation] Respiratory Rate 22 H 22 H 24 H Blood Pressure 108/37 L 95/50 L 100/55 L Pulse Oximetry 98 98 99 Oxygen Delivery Room Air Room Air Room Air Oxygen Flow Rate 11/10/24 20:00 11/10/24 20:00 11/10/24 20:50 Temperature 36.4 C Pulse Rate 96 99 Pulse Rate [Bilateral Pedal (Dorsalis Pedis) Palpation] Respiratory Rate 22 H 18 Blood Pressure 107/41 L 120/53 L Pulse Oximetry 95 95 Oxygen Delivery Room Air Room Air Oxygen Flow Rate 11/10/24 21:49 11/10/24 22:00 11/10/24 23:15 Temperature 36.4 C 36.5 C Pulse Rate 92 98 97 Pulse Rate [Bilateral Pedal (Dorsalis Pedis) Palpation] Respiratory Rate 18 Blood Pressure 120/53 L 128/64 Pulse Oximetry 100 100 Oxygen Delivery Oxygen Flow Rate 11/11/24 00:00 11/11/24 00:00 11/11/24 00:04 Temperature 36.5 C Pulse Rate 112 H 100 Pulse Rate [Bilateral Pedal (Dorsalis Pedis) Palpation] Respiratory Rate Blood Pressure 136/74 Pulse Oximetry 100 Oxygen Delivery Room Air Oxygen Flow Rate 11/11/24 04:00 11/11/24 04:00 11/11/24 04:49 Temperature 36.6 C Pulse Rate 87 92 Pulse Rate [Bilateral Pedal (Dorsalis Pedis) Palpation] Respiratory Rate 18 Blood Pressure 120/52 L Pulse Oximetry 100 Oxygen Delivery Room Air Oxygen Flow Rate 11/11/24 08:00 11/11/24 09:19 Temperature 36.4 C Pulse Rate 91 85 Pulse Rate [Bilateral Pedal (Dorsalis Pedis) Palpation] Respiratory Rate 14 Blood Pressure 101/43 L Pulse Oximetry 99 Oxygen Delivery Oxygen Flow Rate Intake/Output Intake/Output: Intake & Output 11/08/24 11/09/24 11/10/24 11/11/24 23:59 23:59 23:59 23:59 Intake Total 1259.7 1276.2 1053.9 1013.5 Output Total 1875 1050 275 2 Balance -615.3 226.2 778.9 1011.5 Meds/Results Medications: Active Medications Generic Name Dose Route Start Last Admin Trade Name Freq PRN Reason Stop Dose Admin Acetaminophen 650 mg 11/07/24 22:48 11/10/24 15:44 Acetaminophen 325 Mg Tablet PO 650 mg Q6H PRN Administration Mild Pain (1-3) or Fever Al Hydrox/Mg Hydrox/Simethicone 30 ml 11/09/24 05:09 11/10/24 01:33 Mag Hydrox/Al Hydrox/Simeth 30 Ml Udc PO 30 ml Q6H PRN Administration Indigestion Allopurinol 300 mg 11/09/24 14:15 11/11/24 09:20 Allopurinol 300 Mg Tablet PO 300 mg DAILY SAKSHI Administration Aspirin 81 mg 11/11/24 09:00 11/11/24 09:20 Aspirin 81 Mg Enteric Tablet PO 81 mg QAM SAKSHI Administration Atorvastatin Calcium 80 mg 11/10/24 18:00 11/10/24 20:54 Atorvastatin 40 Mg Tablet PO 80 mg EVENING SAKSHI Administration Calcium Carbonate 200 mg 11/10/24 01:58 11/10/24 02:11 Calcium Carbonate (Tums) 500 Mg (200 Mg Elemental) PO 200 mg Q6H PRN Administration Indigestion Clopidogrel Bisulfate 75 mg 11/11/24 09:00 11/11/24 09:19 Clopidogrel Bisulfate 75 Mg Tablet PO 75 mg QAM SAKSHI Administration Dextrose 12.5 gm 11/07/24 22:49 Dextrose 50% 25 Gm/50 Ml Syringe IV PUSH PRN PRN Hypoglycemia Protocol Glucagon 1 mg 11/07/24 22:49 Glucagon For Inj 1 Mg Vial IM PRN PRN Hypoglycemia Protocol Glucose 15 gm 11/07/24 22:49 Glucose Oral Gel 15 Gm Of Glucse In 37.5 Gm Tube PO PRN PRN Hypoglycemia Protocol Heparin Sodium (Porcine) 4,000 units 11/07/24 15:28 11/08/24 07:25 Heparin Sodium 5,000 Units/Ml Vial IV PUSH 4,000 units PRN PRN Administration aPTT less than 55 seconds Heparin Sodium (Porcine) 3,000 units 11/07/24 15:28 11/09/24 12:31 Heparin Sodium 5,000 Units/Ml Vial IV PUSH 3,000 units PRN PRN Administration aPTT 55 - 70 seconds Heparin Sodium/Dextrose 25,000 units in 250 mls @ 9 mls/hr 11/07/24 15:30 11/11/24 04:24 Heparin Sodium/D5w 100 Units/Ml IV CONT 900 units/hr .Q24H SAKSHI 9 mls/hr Titration Protocol 900 UNITS/HR Dextrose 1,000 mls @ 100 mls/hr 11/07/24 22:49 Dextrose 5% 1,000 Ml IVPB PRN PRN Hypoglycemia Protocol Insulin Aspart 2 - 5 units 11/08/24 08:00 11/11/24 09:16 Insulin Aspart (*Bkc) 100 Units/Ml SUB-Q Not Given TIDWM [facility] Protocol Insulin Aspart 1 - 2 units 11/08/24 21:00 11/10/24 22:27 Insulin Aspart (*Bkc) 100 Units/Ml SUB-Q 1 units HS SAKSHI Administration Protocol Metoprolol Succinate 50 mg 11/10/24 09:00 11/11/24 09:19 Metoprolol Succinate Ext Rel 50 Mg Tabcr PO 50 mg QAM SAKSHI Administration Nitroglycerin 0.4 mg 11/10/24 03:54 11/10/24 04:00 Nitroglycerin Sl 0.4 Mg Tablet SUBLINGUAL 0.4 mg Q5MIN PRN Administration Chest Pain Ondansetron HCl 4 mg 11/07/24 15:49 Ondansetron Inj 4 Mg/2 Ml Vial IV PUSH Q4H PRN Nausea Pantoprazole Sodium 40 mg 11/10/24 02:00 11/11/24 09:23 Pantoprazole Sodium Iv 40 Mg Vial IV PUSH 40 mg Q12HR SAKSHI Administration Radiology Results: ITS Impressions Chest X-Ray 11/07/24 13:33 IMPRESSION: 1. Mild atelectasis at the lung bases. Labs Labs: Laboratory Results - last 24 hr 11/10/24 11/10/24 11/10/24 11:57 13:25 16:17 WBC RBC Hgb Hct MCV MCH MCHC RDW Plt Count MPV APTT Activ Coag Time Kaolin 205 H 187 H Sodium Potassium Chloride Carbon Dioxide Anion Gap BUN Creatinine Estim Creat Clear Calc Estimated GFR Glucose POC Capillary Glucose 231 H Calcium 11/10/24 11/10/24 11/11/24 17:16 20:28 03:59 WBC RBC Hgb Hct MCV MCH MCHC RDW Plt Count MPV APTT 80.4 H Activ Coag Time Kaolin 176 H Sodium Potassium Chloride Carbon Dioxide Anion Gap BUN Creatinine Estim Creat Clear Calc Estimated GFR Glucose POC Capillary Glucose 205 H Calcium 11/11/24 11/11/24 07:21 09:55 WBC 9.9 RBC 4.23 L Hgb 11.9 L Hct 36.5 L MCV 86.3 MCH 28.1 MCHC 32.6 RDW 14.6 H Plt Count 144 L MPV 11.6 H APTT 71.5 H Activ Coag Time Kaolin Sodium 135 L Potassium 3.9 Chloride 103 Carbon Dioxide 27 Anion Gap 5 BUN 17 Creatinine 0.88 Estim Creat Clear Calc 52 Estimated GFR > 60 Glucose 253 H POC Capillary Glucose 191 H Calcium 9.1
[2024-11-11 11:55] LABS: Glucose Point of Care 295 mg/dl (65-105)
[2024-11-11] MEDS: HEPARIN SOD/D5W 100 UNITS/ML 25,000 UNITS/250 ML BAG 9 UNITS IV CONT ×2 (12:57→18:18)
[2024-11-11 13:00] LABS: Glucose Point of Care 254 mg/dl (65-105)
[2024-11-11] MEDS: INSULIN ASPART (*BKC) 100 UNITS/ML SUB-Q (13:03)
--- NOTE | 2024-11-11 14:18 | PC.NURSE ---
Right radial cath site with no hematoma, bruising or swelling. Sensation intact in right hand. right radial pulse strong. Normal color of ectremity, warm to touch.
[2024-11-11 15:55] LABS: Glucose Point of Care 155 mg/dl (65-105)
[2024-11-11] MEDS: ATORVASTATIN 40 MG TABLET 80 MG PO (18:22)
[2024-11-11 20:24] LABS: Glucose Point of Care 196 mg/dl (65-105)
[2024-11-11] MEDS: PANTOPRAZOLE 40 MG TABLET PO (20:45)
[2024-11-12] VITALS (15 sets, daily range): BP systolic 108–125; BP diastolic 57–97; PULSE 72–152; RESP 16–20; TEMP 36.6–38.1; O2SAT 95–100
[2024-11-12] MEDS: MAG HYDROX/AL HYDROX/SIMETH 30 ML UDC PO ×2 (02:21→18:55)
[2024-11-12 05:33] LABS: Partial Thromboplastin Time 96.8 Seconds (22.3-36.8)
[2024-11-12 08:28] LABS: Glucose Point of Care 140 mg/dl (65-105)
[2024-11-12] MEDS: ASPIRIN 81 MG ENTERIC TABLET PO (10:08)
[2024-11-12] MEDS: PANTOPRAZOLE 40 MG TABLET PO ×2 (10:08→20:24)
[2024-11-12] MEDS: METOPROLOL SUCCINATE EXT REL 50 MG TABCR PO (10:08)
[2024-11-12] MEDS: allopurinoL 300 MG TABLET PO (10:08)
[2024-11-12] MEDS: CLOPIDOGREL BISULFATE 75 MG TABLET PO (10:08)
[2024-11-12] MEDS: dilTIAZem HCl INJ 25 MG/5 ML VIAL 20 MG IV PUSH (10:54)
[2024-11-12] MEDS: APIXABAN 5 MG TABLET PO ×2 (12:00→20:24)
[2024-11-12] MEDS: dilTIAZem HCL CD 120 MG CAP.24HR PO (12:00)
[2024-11-12 12:03] LABS: Glucose Point of Care 241 mg/dl (65-105)
--- NOTE | 2024-11-12 12:48 | PM.DS ---
DS: Summary Time Spent with Patient Time attestation: Total time spent providing and/or coordinating discharge services: DS: Data Data Completed and Pending Labs on day of discharge: Labs from last 24 hours 11/12/24 11/12/24 11/12/24 11:15 08:25 04:43 APTT 96.8 H POC Capillary Glucose 241 H 140 H 11/11/24 11/11/24 11/11/24 20:05 15:49 12:57 APTT POC Capillary Glucose 196 H 155 H 254 H Discharge Plan Discharge Consulting providers: Yahir Barakat Patient Instructions: Apixaban (By mouth) Patient Language: Lebanese Discharge Medications: New clopidogrel 75 mg Tablet 75 mg PO QAM Qty: 90 3RF Discontinued diltiazem HCl 120 mg capsule,extended release 12 hr 120 mg PO DAILY No Action ezetimibe 10 mg tablet 10 mg PO DAILY multivitamin Tablet 1 tablet PO DAILY omeprazole 20 mg capsule,delayed release(DR/EC) 20 mg PO BID allopurinol 300 mg Tablet 300 mg PO DAILY metformin 500 mg Tablet Extended Release 24 Hr 1,000 mg PO BID ferrous sulfate 325 mg (65 mg iron) tablet,delayed release (DR/EC) 325 mg PO DAILY ranolazine 500 mg tablet extended release 12 hr 500 mg PO BID dapagliflozin propanediol [Farxiga] 10 mg tablet 5 mg PO DAILY Eliquis 5 mg tablet 5 mg PO Q12H Qty: 14 0RF Date of admission: 11/07/24 15:49 Primary Care Provider: Eva,Maciel Admitting Provider: Jose Do Attending physician on admission: Jose Do Condition: Guarded Prognosis
[2024-11-12 13:29] LABS: Anion Gap 7 mmol/L (4-12); Blood Urea Nitrogen 21 mg/dL (9-20); Calcium 9.2 mg/dL (8.4-10.2); Carbon Dioxide 24 mmol/L (22-30); Chloride 104 mmol/L (98-107); Estimated CRCL calculation 56 ml/min; Estimated Glomerular Filt Rate > 60; Glucose 261 mg/dL (65-110); Magnesium 2.2 mg/dL (1.6-2.3); Potassium 3.4 mmol/L (3.4-5.0); Sodium 135 mmol/L (137-145)
[2024-11-12] MEDS: EMPAGLIFLOZIN 10 MG TABLET PO (15:59)
[2024-11-12] MEDS: POTASSIUM CHLORIDE 20 MEQ ER TABLET 60 MEQ PO (15:59)
--- NOTE | 2024-11-12 16:08 | P.PNIM_ITS ---
Progress Note: A&P Assessment and Plan (1) Non-ST elevation myocardial infarction (NSTEMI): Code(s): I21.4 - Non-ST elevation (NSTEMI) myocardial infarction Status: Acute (2) Gastroesophageal reflux disease: Code(s): K21.9 - Gastro-esophageal reflux disease without esophagitis Status: Acute (3) Paroxysmal atrial fibrillation: Code(s): I48.0 - Paroxysmal atrial fibrillation Status: Acute (4) Chronic anticoagulation: Code(s): Z79.01 - senior care (current) use of anticoagulants Status: Acute (5) Type 2 diabetes mellitus: Code(s): E11.9 - Type 2 diabetes mellitus without complications Status: Chronic (6) Hypertension: Code(s): I10 - Essential (primary) hypertension Status: Acute (7) Atrial fibrillation with rapid ventricular response: Code(s): I48.91 - Unspecified atrial fibrillation Status: Acute Assessment and Plan: Plan The patient presented to the emergency department for evaluation of acid reflux as detailed in HPI. Labs, imaging, EKG, and all reports were personally reviewed. He describes classic GERD symptoms and given his history of duodenal ulcers GI has been consulted for recommendations. Incidentally an EKG and troponins were drawn on the patient upon arrival and he was found to have T-wave inversions in anterior leads and a modestly elevated troponin. His symptoms actually improved with nitroglycerin and he was started on a heparin drip with plans for cardiac catheterization tomorrow per Cardiology. He will be monitored closely in the IMU. Trend troponins to peak. Continue PPI. Hold apixaban as he is on heparin drip. Blood pressures were reviewed and they are stable. Hold metformin due to plans for cardiac catheterization. Initiate sliding scale insulin, Accu-Cheks, and hypoglycemic protocol. The rest of his home medications will be reviewed and resumed as appropriate. Findings and treatment plan were discussed with the patient. 11/10: Since patient didnt return to his room from morning,I went personally to director labor standards around 6pm to evaluate the patient. Unfortunately I was not able to see him due to restricted access. The chest pain center nurse called me around 6.40 pm and reported patient had episodes low BP and fluids were given but due to congestion they stopped fluids. She reported his current BP is 90's/40's. I advised to the nurse its better Manager News can speak to Frame Table Operator Helper and transfer the patient to ICU and monitored for tonight. NTSEMI -Patient underwent cardiac catheterization on 11/11/2024. -As per Cardiology Triple therapy for 1 month followed by Plavix 75 mg p.o. daily and Eliquis 5 mg p.o. q.12 hours.Consider complete revascularization if patient agreeable.Continue aggressive risk factor modification -on heparin drip -Eliquis on hold -Not on ASA or Statin -Cardiology on board -Underwent Cath approx 10 years ago.Reports no significant finding -3 years underwent ECHO and Stress test which was negative as per patient -Continue heparin drip and give sublingual nitro if needed -Echocardiogram LVEF 47% -Denies any illicit drug use -Reviewed EKG and CXR -Continue Diltiazem 120mg PO QD and Ranolazine 500mg PO BID Gastric Ulcer -Previous hx gastric ulcer . -Recently had increased heart burn ,PCP increased his PPI dose to twice daily. -No recent EGD DM SSI Hold Metformin,Farixga ATRIAL FIBRILLATION RVR 11/12: Diltiazem (home med) was not restarted after admit Started this back after IV diltiazem 20 mg Patient had momentary improvement in HR but became tachycardic again No chest pain or dyspnea Spoke to Dr. Cade who advised no more diltiazem due to decreased EF, double dose of metoprolol Ordered metoprolol tartrate 50 mg BID to start now and again at 0900 Labs checked, potassium supplemented, magnesium ok Time Spent With Patient Time with patient: Greater than 35 minutes Subjective Date/time seen: 11/12/24 16:00 Interval history: Patient reports feeling better today no chest pain no difficulty breathing however he was found to be in AFib RVR this morning with heart rate 140-160. Oral metoprolol did not help. Patient restarted on his diltiazem after receiving a 20 mg bolus IV that seemed to short-acting rate control but this afternoon his heart rate was back into the 130 to 140 range. labs recheck it and potassium found to be 3.4 so this was replaced orally. Magnesium was 2.2. Review of Systems Review of Systems: All systems reviewed & are unremarkable except as noted in HPI and below Exam Narrative: GENERAL: Well-appearing, well-nourished, and in no acute distress. HEAD: Normocephalic, atraumatic. ENT:? Mucous membranes moist. CHEST: Clear to auscultation.? No respiratory distress. HEART: tachycardic rate irregularly irregular rhythm, normal peripheral pulses, atrial fibrillation with RVR on bedside transcription typist per my independent interpretation heart rate of 140-150 ABDOMEN: Soft, nontender, nondistended. EXTREMITIES: Normal range of motion. No peripheral edema. SKIN: Warm dry normal color NEURO: Alert and oriented x3. PSYCH: Normal mood and affect Objective Data Vital Signs Vital Signs: Vital Signs - 24 hr 11/11/24 18:00 11/11/24 20:00 11/11/24 20:00 Temperature Pulse Rate 95 132 H Respiratory Rate Blood Pressure Pulse Oximetry Oxygen Delivery Room Air 11/11/24 20:29 11/12/24 00:00 11/12/24 04:00 Temperature 37.3 C Pulse Rate 108 H 72 97 Respiratory Rate 16 Blood Pressure 97/59 L Pulse Oximetry 94 Oxygen Delivery 11/12/24 08:00 11/12/24 10:08 11/12/24 12:00 Temperature 36.9 C 36.6 C Pulse Rate 125 H 152 H 90 Respiratory Rate 16 18 Blood Pressure 125/97 H 108/63 Pulse Oximetry 100 100 Oxygen Delivery Intake/Output Intake/Output: Intake & Output 11/09/24 11/10/24 11/11/24 11/12/24 23:59 23:59 23:59 23:59 Intake Total 1276.2 1053.9 2493.4 865.6 Output Total 1050 275 152 400 Balance 226.2 778.9 2341.4 465.6 Meds/Results Medications: Active Medications Generic Name Dose Route Start Last Admin Trade Name Freq PRN Reason Stop Dose Admin Acetaminophen 650 mg 11/07/24 22:48 11/10/24 15:44 Acetaminophen 325 Mg Tablet PO 650 mg Q6H PRN Administration Mild Pain (1-3) or Fever Al Hydrox/Mg Hydrox/Simethicone 30 ml 11/09/24 05:09 11/12/24 02:21 Mag Hydrox/Al Hydrox/Simeth 30 Ml Udc PO 30 ml Q6H PRN Administration Indigestion Allopurinol 300 mg 11/09/24 14:15 11/12/24 10:08 Allopurinol 300 Mg Tablet PO 300 mg DAILY SAKSHI Administration Apixaban 5 mg 11/12/24 10:55 11/12/24 12:00 Apixaban 5 Mg Tablet PO 5 mg Q12HR SAKSHI Administration Aspirin 81 mg 11/11/24 09:00 11/12/24 10:08 Aspirin 81 Mg Enteric Tablet PO 81 mg QAM SAKSHI Administration Atorvastatin Calcium 80 mg 11/10/24 18:00 11/11/24 18:22 Atorvastatin 40 Mg Tablet PO 80 mg EVENING SAKSHI Administration Calcium Carbonate 200 mg 11/10/24 01:58 11/10/24 02:11 Calcium Carbonate (Tums) 500 Mg (200 Mg Elemental) PO 200 mg Q6H PRN Administration Indigestion Clopidogrel Bisulfate 75 mg 11/11/24 09:00 11/12/24 10:08 Clopidogrel Bisulfate 75 Mg Tablet PO 75 mg QAM SAKSHI Administration Dextrose 12.5 gm 11/07/24 22:49 Dextrose 50% 25 Gm/50 Ml Syringe IV PUSH PRN PRN Hypoglycemia Protocol Diltiazem HCl 120 mg 11/12/24 10:55 11/12/24 12:00 Diltiazem Hcl Cd 120 Mg Cap.24hr PO 120 mg QAM SAKSHI Administration Ezetimibe 10 mg 11/13/24 09:00 Ezetimibe 10 Mg Tablet PO DAILY SAKSHI Empagliflozin 10 mg 11/12/24 11:15 11/12/24 15:59 Empagliflozin 10 Mg Tablet PO 12/13/24 11:14 10 mg DAILY SAKSHI Administration Ferrous Sulfate 325 mg 11/13/24 09:00 Ferrous Sulfate [address] PO DAILY SAKSHI Glucagon 1 mg 11/07/24 22:49 Glucagon For Inj 1 Mg Vial IM PRN PRN Hypoglycemia Protocol Glucose 15 gm 11/07/24 22:49 Glucose Oral Gel 15 Gm Of Glucse In 37.5 Gm Tube PO PRN PRN Hypoglycemia Protocol Dextrose 1,000 mls @ 100 mls/hr 11/07/24 22:49 Dextrose 5% 1,000 Ml IVPB PRN PRN Hypoglycemia Protocol Insulin Aspart 2 - 5 units 11/08/24 08:00 11/12/24 14:24 Insulin Aspart (*Bkc) 100 Units/Ml SUB-Q Not Given TIDWM SAKSHI Protocol Insulin Aspart 1 - 2 units 11/08/24 21:00 11/11/24 21:19 Insulin Aspart (*Bkc) 100 Units/Ml SUB-Q Not Given HS [facility] Protocol Metoprolol Succinate 50 mg 11/10/24 09:00 11/12/24 10:08 Metoprolol Succinate Ext Rel 50 Mg Tabcr PO 50 mg QAM SAKSHI Administration Multivitamins Therapeutic 1 tablet 11/13/24 09:00 Multivitamins Therapeutic Tab (*Bkc) PO DAILY [facility] Nitroglycerin 0.4 mg 11/10/24 03:54 11/10/24 04:00 Nitroglycerin Sl 0.4 Mg Tablet SUBLINGUAL 0.4 mg Q5MIN PRN Administration Chest Pain Ondansetron HCl 4 mg 11/07/24 15:49 Ondansetron Inj 4 Mg/2 Ml Vial IV PUSH Q4H PRN Nausea Pantoprazole Sodium 40 mg 11/11/24 21:00 11/12/24 10:08 Pantoprazole 40 Mg Tablet PO 40 mg Q12HR SAKSHI Administration Radiology Results: ITS Impressions Chest X-Ray 11/07/24 13:33 IMPRESSION: 1. Mild atelectasis at the lung bases. Labs Labs: Laboratory Results - last 24 hr 11/11/24 11/12/24 11/12/24 20:05 04:43 08:25 APTT 96.8 H Sodium Potassium Chloride Carbon Dioxide Anion Gap BUN Creatinine Estim Creat Clear Calc Estimated GFR Glucose POC Capillary Glucose 196 H 140 H Calcium Magnesium 11/12/24 11/12/24 11:15 13:07 APTT Sodium 135 L Potassium 3.4 Chloride 104 Carbon Dioxide 24 Anion Gap 7 BUN 21 H Creatinine 0.81 Estim Creat Clear Calc 56 Estimated GFR > 60 Glucose 261 H POC Capillary Glucose 241 H Calcium 9.2 Magnesium 2.2 Pulse Oximetry SpO2 results: 100% on room air Attestation: I personally reviewed and interpreted this pulse oximetry as follows: Interpretation: no need for supplemental oxygenation at this time Quality VTE Prophylaxis VTE prophylaxis: pharmacologic ordered (Danyel) Hospitalist [facility] Advance Care Plan I have confirmed that the patient's Advanced Care Plan is present, code status is documented, or surrogate decision maker is listed in patient medical record.: Yes Medication Reconciliation I have utilized all available resources to obtain, update and review the patients current medications (includes all prescriptions, OTC, herbals, cannabis, and nutritional supplements).: Yes
[2024-11-12 17:46] LABS: Glucose Point of Care 200 mg/dl (65-105)
[2024-11-12] MEDS: METOPROLOL TARTRATE 50 MG TAB PO (17:55)
[2024-11-12] MEDS: ATORVASTATIN 40 MG TABLET 80 MG PO (17:55)
[2024-11-12] MEDS: CALCIUM CARBONATE (TUMS) 500 MG (200 MG ELEMENTAL) PO (18:55)
[2024-11-12] MEDS: METOPROLOL TARTRATE INJ 5 MG/5 ML VIAL IV PUSH ×2 (18:56→20:25)
[2024-11-12 20:40] LABS: Glucose Point of Care 233 mg/dl (65-105)
[2024-11-12] MEDS: INSULIN ASPART (*BKC) 100 UNITS/ML SUB-Q (20:47)
[2024-11-12] MEDS: BELLADONNA ALK/PHENOB ELIX 10 ML, MAG HYDROX/ALUMINUM HYD/SIMETH 30 ML, LIDOCAINE 2% VI... PO (20:47)
[2024-11-12] MEDS: LIDOCAINE 2% VISC SOLN 15 ML UDC (21:06)
[2024-11-12] MEDS: BELLADONNA ALK/PHENOB ELIXIR 10 ML (21:06)
[2024-11-13] VITALS: PULSE 119
[2024-11-13 04:00] VITALS: PULSE 108
[2024-11-13 05:31] LABS: Basophils Percent Auto 0.3 % (0.2-1.2); Hematocrit 40.4 % (42.0-52.0); Hemoglobin 12.9 g/dL (14.0-18.0); Immature Granulocyte Absolute 0.03 K/mm3 (0.00-0.031); Immature Granulocyte Percent A 0.4 % (0-0.5); Lymphocytes Absolute Auto 0.51 K/mm3 (0.9-3.2); Lymphocytes Percent Auto 6.7 % (18.3-44.2); Mean Corpuscular HGB Conc 31.9 g/dl (32-36); Mean Corpuscular Hemoglobin 27.6 pg (26-34); Mean Corpuscular Volume 86.5 fl (80-100); Mean Platelet Volume 12.4 fl (7.4-10.4); Monocytes Absolute Auto 0.6 K/mm3 (0.1-0.6); Monocytes Percent Auto 7.7 % (2.6-8.5); Neutrophils Absolute Auto 6.4 K/mm3 (1.3-6.7); Neutrophils Percent Auto 84.9 % (45.5-73.1); Platelet Count Result 167 k/mm3 (150-375); Red Blood Count 4.67 M/mm3 (4.6-6.20); Red Cell Distribution Width 14.4 % (11.5-14.5); White Blood Count 7.6 K/mm3 (4.5-10.0)
[2024-11-13 05:43] LABS: Alanine Aminotransferase 350 U/L (6-50); Albumin Level 3.6 g/dL (3.5-5.1); Alkaline Phosphatase 279 U/L (38-126); Anion Gap 8 mmol/L (4-12); Aspartate Amino Transferase 59 U/L (17-59); Bilirubin,Total 8.5 mg/dL (0.2-1.3); Blood Urea Nitrogen 18 mg/dL (9-20); Calcium 9.8 mg/dL (8.4-10.2); Carbon Dioxide 24 mmol/L (22-30); Chloride 103 mmol/L (98-107); Estimated CRCL calculation 44 ml/min; Estimated Glomerular Filt Rate > 60; Glucose 164 mg/dL (65-110); Magnesium 2.4 mg/dL (1.6-2.3); Potassium 4.2 mmol/L (3.4-5.0); Sodium 135 mmol/L (137-145)
[2024-11-13 07:13] LABS: Glucose Point of Care 176 mg/dl (65-105)
[2024-11-13 07:39] VITALS: BP 109/68; PULSE 127; RESP 18; TEMP 37.2; O2SAT 99
[2024-11-13 08:00] VITALS: PULSE 136
[2024-11-13] MEDS: PANTOPRAZOLE 40 MG TABLET PO (09:01)
[2024-11-13] MEDS: allopurinoL 300 MG TABLET PO (09:01)
[2024-11-13] MEDS: EZETIMIBE 10 MG TABLET PO (09:01)
[2024-11-13] MEDS: EMPAGLIFLOZIN 10 MG TABLET PO (09:01)
[2024-11-13] MEDS: ASPIRIN 81 MG ENTERIC TABLET PO (09:01)
[2024-11-13 09:02] VITALS: PULSE 114
[2024-11-13] MEDS: FERROUS SULFATE 325 MG TABLET DR PO (09:02)
[2024-11-13] MEDS: MULTIVITAMINS THERAPEUTIC TAB (*BKC) 1 TABLET PO (09:02)
[2024-11-13] MEDS: CLOPIDOGREL BISULFATE 75 MG TABLET PO (09:02)
[2024-11-13] MEDS: METOPROLOL TARTRATE 50 MG TAB PO (09:02)
[2024-11-13 11:16] LABS: Glucose Point of Care 206 mg/dl (65-105)
[2024-11-13] MEDS: APIXABAN 5 MG TABLET PO (11:56)
--- NOTE | 2024-11-13 11:56 | PM.DS ---
DS: Admitting Diagnosis Discharge Date 11/13/2024 Admitting Diagnosis GERD DS: Discharge Diagnosis Discharge Diagnosis (1) Non-ST elevation myocardial infarction (NSTEMI): Code(s): I21.4 - Non-ST elevation (NSTEMI) myocardial infarction Status: Acute Assessment and Plan: see below (2) Gastroesophageal reflux disease: Code(s): K21.9 - Gastro-esophageal reflux disease without esophagitis Status: Acute (3) Paroxysmal atrial fibrillation: Code(s): I48.0 - Paroxysmal atrial fibrillation Status: Acute (4) Chronic anticoagulation: Code(s): Z79.01 - care home (current) use of anticoagulants Status: Acute (5) Type 2 diabetes mellitus: Code(s): E11.9 - Type 2 diabetes mellitus without complications Status: Chronic (6) Hypertension: Code(s): I10 - Essential (primary) hypertension Status: Acute (7) Atrial fibrillation with rapid ventricular response: Code(s): I48.91 - Unspecified atrial fibrillation Status: Acute Assessment and Plan: Plan 11/10: Since patient didnt return to his room from morning,I went personally to carpenter labor supervisor around 6pm to evaluate the patient. Unfortunately I was not able to see him due to restricted access. The chest pain center nurse called me around 6.40 pm and reported patient had episodes low BP and fluids were given but due to congestion they stopped fluids. She reported his current BP is 90's/40's. I advised to the nurse its better Refuse Driver can speak to Job Estimator and transfer the patient to ICU and monitored for tonight. NTSEMI -Patient underwent cardiac catheterization on 11/11/2024. -As per Cardiology Triple therapy for 1 month followed by Plavix 75 mg p.o. daily and Eliquis 5 mg p.o. q.12 hours.Consider complete revascularization if patient agreeable.Continue aggressive risk factor modification -on heparin drip -Eliquis on hold -Not on ASA or Statin -Cardiology on board -Underwent Cath approx 10 years ago.Reports no significant finding -3 years underwent ECHO and Stress test which was negative as per patient -Continue heparin drip and give sublingual nitro if needed -Echocardiogram LVEF 47% -Denies any illicit drug use -Reviewed EKG and CXR -Continue Diltiazem 120mg PO QD and Ranolazine 500mg PO BID Gastric Ulcer -Previous hx gastric ulcer . -Recently had increased heart burn ,PCP increased his PPI dose to twice daily. -No recent EGD DM SSI Hold Metformin,Farixga ATRIAL FIBRILLATION RVR 11/12: Diltiazem (home med) was not restarted after admit Started this back after IV diltiazem 20 mg Patient had momentary improvement in HR but became tachycardic again No chest pain or dyspnea Spoke to Dr. Cade who advised no more diltiazem due to decreased EF, double dose of metoprolol Ordered metoprolol tartrate 50 mg BID to start now and again at 0900 Labs checked, potassium supplemented, magnesium ok DS: Summary Hospital Course Hospital Course: The patient presented to the emergency department for evaluation of acid reflux as detailed in HPI. Labs, imaging, EKG, and all reports were personally reviewed. He describes classic GERD symptoms and given his history of duodenal ulcers GI has been consulted for recommendations. Incidentally an EKG and troponins were drawn on the patient upon arrival and he was found to have T-wave inversions in anterior leads and a modestly elevated troponin. His symptoms actually improved with nitroglycerin and he was started on a heparin drip with plans for cardiac catheterization tomorrow per Cardiology. He will be monitored closely in the IMU. Trend troponins to peak. Continue PPI. Hold apixaban as he is on heparin drip. Blood pressures were reviewed and they are stable. Hold metformin due to plans for cardiac catheterization. Initiate sliding scale insulin, Accu-Cheks, and hypoglycemic protocol. The rest of his home medications will be reviewed and resumed as appropriate. Findings and treatment plan were discussed with the patient. NTSEMI -Patient underwent cardiac catheterization on 11/11/2024. -As per Cardiology Triple therapy for 1 month followed by Plavix 75 mg p.o. daily and Eliquis 5 mg p.o. q.12 hours.Consider complete revascularization if patient agreeable.Continue aggressive risk factor modification -on heparin drip -Eliquis on hold -Not on ASA or Statin -Cardiology on board -Underwent Cath approx 10 years ago.Reports no significant finding -3 years underwent ECHO and Stress test which was negative as per patient -Continue heparin drip and give sublingual nitro if needed -Echocardiogram LVEF 47% -Denies any illicit drug use -Reviewed EKG and CXR -Continue Diltiazem 120mg PO QD and Ranolazine 500mg PO BID ATRIAL FIBRILLATION RVR 11/12: Diltiazem (home med) was not restarted after admit Started this back after IV diltiazem 20 mg Patient had momentary improvement in HR but became tachycardic again No chest pain or dyspnea Spoke to Dr. Cade who advised no more diltiazem due to decreased EF, double dose of metoprolol Ordered metoprolol tartrate 50 mg BID to start now and again at 0900 Labs checked, potassium supplemented, magnesium ok Time Spent with Patient Time attestation: Total time spent providing and/or coordinating discharge services:55 minutes on day of dc Exam Narrative: GENERAL: Well-appearing, well-nourished, and in no acute distress. HEAD: Normocephalic, atraumatic. ENT:? Mucous membranes moist. CHEST: Clear to auscultation.? No respiratory distress. HEART: tachycardic rate irregularly irregular rhythm, normal peripheral pulses, atrial fibrillation with RVR on bedside secured entrance monitor per my independent interpretation heart rate of 140-150 ABDOMEN: Soft, nontender, nondistended. EXTREMITIES: Normal range of motion. No peripheral edema. SKIN: Warm dry normal color NEURO: Alert and oriented x3. PSYCH: Normal mood and affect DS: Data Data Completed and Pending Labs on day of discharge: Labs from last 24 hours 11/13/24 11/13/24 11/13/24 11:14 07:11 05:03 WBC 7.6 RBC 4.67 Hgb 12.9 L Hct 40.4 L MCV 86.5 MCH 27.6 MCHC 31.9 L RDW 14.4 Plt Count 167 MPV 12.4 H Immature Gran % (Auto) 0.4 Neut % (Auto) 84.9 H Lymph % (Auto) 6.7 L [place] % (Auto) 7.7 Eos % (Auto) 0.0 Baso % (Auto) 0.3 Lymph # (Auto) 0.51 L [place] # (Auto) 0.6 Eos # (Auto) 0.0 Baso # (Auto) 0.0 Abs Immat Gran (auto) 0.03 Absolute Neuts (auto) 6.4 Absolute Nucleated RBC 0.000 Nucleated RBC % 0.0 APTT 47.0 H Sodium 135 L Potassium 4.2 Chloride 103 Carbon Dioxide 24 Anion Gap 8 BUN 18 Creatinine 1.04 Estim Creat Clear Calc 44 Estimated GFR > 60 Glucose 164 H POC Capillary Glucose 206 H 176 H Calcium 9.8 Magnesium 2.4 H Total Bilirubin 8.5 H AST 59 ALT 350 H Alkaline Phosphatase 279 H Total Protein 7.0 Albumin 3.6 11/12/24 11/12/24 11/12/24 20:38 16:26 13:07 WBC RBC Hgb Hct MCV MCH MCHC RDW Plt Count MPV Immature Gran % (Auto) Neut % (Auto) Lymph % (Auto) [place] % (Auto) Eos % (Auto) Baso % (Auto) Lymph # (Auto) [place] # (Auto) Eos # (Auto) Baso # (Auto) Abs Immat Gran (auto) Absolute Neuts (auto) Absolute Nucleated RBC Nucleated RBC % APTT Sodium 135 L Potassium 3.4 Chloride 104 Carbon Dioxide 24 Anion Gap 7 BUN 21 H Creatinine 0.81 Estim Creat Clear Calc 56 Estimated GFR > 60 Glucose 261 H POC Capillary Glucose 233 H 200 H Calcium 9.2 Magnesium 2.2 Total Bilirubin AST ALT Alkaline Phosphatase Total Protein Albumin 11/12/24 11:15 WBC RBC Hgb Hct MCV MCH MCHC RDW Plt Count MPV Immature Gran % (Auto) Neut % (Auto) Lymph % (Auto) [place] % (Auto) Eos % (Auto) Baso % (Auto) Lymph # (Auto) [place] # (Auto) Eos # (Auto) Baso # (Auto) Abs Immat Gran (auto) Absolute Neuts (auto) Absolute Nucleated RBC Nucleated RBC % APTT Sodium Potassium Chloride Carbon Dioxide Anion Gap BUN Creatinine Estim Creat Clear Calc Estimated GFR Glucose POC Capillary Glucose 241 H Calcium Magnesium Total Bilirubin AST ALT Alkaline Phosphatase Total Protein Albumin Discharge Plan Discharge Attending physician on discharge: Annika Crowe Consulting providers: Yahir Barakat; Juanito Short; Rena Preciado; Nathaniel Cade; Patrice Hernandez; Duncan Robert; Warren Hunt V. Discharging Clinician: Annika Crowe Anticipated Discharge Date/Time: 11/12/24 14:49 Patient Disposition: Home, Self-Care Activity: may shower Diet: heart healthy and diabetic Discharge Instructions: -Make follow up appointment with Cardiology group -They say you will need another stent -Take aspirin 81 mg daily along with new medication clopidogrel and Eliquis for 1 month then continue clopidogrel and Eliquis ongoing but stop aspirin Patient Instructions: Antibiotic Form, Apixaban (By mouth), Heart Attack (DC), Heart Healthy Diet (DC), Stress (DC) Patient Language: Kazakh Stand Alone Forms: General Discharge Information Follow-up/Referrals: Eva,MD Maciel [Primary Care Provider] - (in 2-3 weeks time ) Juanito Short MD [Physician] - Call for Appointment Nathaniel Cade MD [Physician] - (in 4 weeks time ) Discharge Medications: New aspirin 81 mg Tablet,Delayed Release (Dr/Ec) 81 mg PO QAM Qty: 30 0RF Rx Instructions: Take for 1 month metoprolol succinate 50 mg Tablet Extended Release 24 Hr 100 mg PO QAM Qty: 60 0RF atorvastatin 40 mg Tablet 80 mg PO EVENING Qty: 60 0RF clopidogrel [Plavix] 75 mg tablet 75 mg PO DAILY Qty: 90 0RF Continued multivitamin Tablet 1 tablet PO DAILY omeprazole 20 mg capsule,delayed release(DR/EC) 20 mg PO BID allopurinol 300 mg Tablet 300 mg PO DAILY dapagliflozin propanediol [Farxiga] 10 mg tablet 5 mg PO DAILY ferrous sulfate 325 mg (65 mg iron) tablet,delayed release (DR/EC) 325 mg PO DAILY Qty: 60 0RF metformin 500 mg Tablet Extended Release 24 Hr 1,000 mg PO BID Qty: 60 0RF ezetimibe 10 mg tablet 10 mg PO DAILY Qty: 60 0RF ranolazine 500 mg tablet extended release 12 hr 500 mg PO BID Qty: 60 0RF Eliquis 5 mg tablet 5 mg PO Q12H Qty: 60 0RF Discontinued diltiazem HCl 120 mg capsule,extended release 12 hr 120 mg PO DAILY Date of admission: 11/07/24 15:49 Primary Care Provider: EvaMaciel Admitting Provider: Jose Do Attending physician on admission: Annika Crowe Condition: Improved
[2024-11-13 12:00] VITALS: PULSE 74
--- NOTE | 2024-11-13 12:15 | PM.PNCARD ---
Progress Note: A&P Assessment and Plan (1) Non-ST elevation myocardial infarction (NSTEMI): Code(s): I21.4 - Non-ST elevation (NSTEMI) myocardial infarction Status: Acute (2) Paroxysmal atrial flutter: Code(s): I48.92 - Unspecified atrial flutter Status: Acute (3) Hyperlipidemia: Code(s): E78.5 - Hyperlipidemia, unspecified Status: Chronic (4) Ischemic cardiomyopathy: Code(s): I25.5 - Ischemic cardiomyopathy Status: Acute Plan 89-year-old man with paroxysmal atrial fibrillation initially presented with chest pain whose clinical presentation is consistent with NSTEMI Non ST-elevation -he is status post PCI -during cardiac catheterization, he was continually moving in attempts to get off the cardiac catheterization table to go urinate and despite being told multiple times he has multiple equipment inside his coronary vasculature and that it would be dangerous to continue moving, he persisted -during deployment of stent, he moved considerably and stent ended up being deployed from left circumflex into the OM branch where the stenosis was severe -given that he was continually moving, and risk of adverse events is elevated, procedure was stopped at this point and I discussed with him and his family multiple times over several days that we will re-evaluate her symptoms of angina in the outpatient setting and we can reconsider complete revascularization as he does have LAD lesion that is significant if he has refractory angina despite medical therapy that is optimized and if his angina is physically limiting despite optimal medical therapy -patient and his understood and agreed -continue aspirin 81 mg daily for the remainder of the month -continue Plavix 75 mg p.o. daily for minimum of 1 year Ischemic cardiomyopathy -PCI was made to culprit lesion corresponding to the wall motion abnormalities -blood pressure currently unable to tolerate an INÉS-inhibitor or Arb -continue Farxiga -will re-evaluate outpatient Paroxysmal atrial fibrillation -can be discharged on metoprolol succinate 100 mg p.o. daily -continue Eliquis 5 mg p.o. b.i.d. Hyperlipidemia -continue atorvastatin 80 mg every evening and ezetimibe 10 mg p.o. daily Patient can be discharged from cardiac perspective to follow up with me. Please call with additional questions Subjective Date/time seen: 11/13/24 12:15 Interval history: No chest pain or shortness breath this morning. Review of Systems Cardiovascular: Cardiovascular: Reports as per HPI Respiratory: Respiratory: Reports as per HPI Exam Const: General: comfortable HENMT: Mouth: Yes moist mucous membranes Eyes: EOM: EOMs intact bilaterally Neck: Neck: no JVD Resp: Effort & Inspection: normal respiratory effort Auscultation: clear to auscultation bilaterally Cardio: Rate: regular rate Rhythm: regular rhythm GI: GI Palp: Yes Soft to palpation Neuro: Speech: normal speech Extrem: General: no edema Objective Data Vital Signs Vital Signs: Vital Signs - 24 hr 11/12/24 14:00 11/12/24 16:00 11/12/24 17:37 Temperature Pulse Rate 135 H 138 H 142 H Respiratory Rate Blood Pressure Pulse Oximetry Oxygen Delivery 11/12/24 17:55 11/12/24 18:56 11/12/24 19:57 Temperature 38.1 C H Pulse Rate 142 H 144 H 140 H Respiratory Rate 20 Blood Pressure 112/57 L Pulse Oximetry 97 Oxygen Delivery 11/12/24 20:00 11/12/24 20:00 11/12/24 20:25 Temperature Pulse Rate 141 H 141 H Respiratory Rate Blood Pressure Pulse Oximetry Oxygen Delivery Room Air 11/12/24 23:18 11/13/24 00:00 11/13/24 04:00 Temperature 37.4 C Pulse Rate 117 H 119 H 108 H Respiratory Rate 20 Blood Pressure 120/67 Pulse Oximetry 95 Oxygen Delivery 11/13/24 07:39 11/13/24 08:00 11/13/24 08:00 Temperature 37.2 C Pulse Rate 127 H 136 H Respiratory Rate 18 Blood Pressure 109/68 Pulse Oximetry 99 Oxygen Delivery Room Air 11/13/24 09:02 Temperature Pulse Rate 114 H Respiratory Rate Blood Pressure Pulse Oximetry Oxygen Delivery Intake/Output Intake/Output: Intake & Output 11/10/24 11/11/24 11/12/24 11/13/24 23:59 23:59 23:59 23:59 Intake Total 1053.9 2493.4 1945.6 730 Output Total 275 152 401 300 Balance 778.9 2341.4 1544.6 430 Meds/Results Medications: Active Medications Generic Name Dose Route Start Last Admin Trade Name Freq PRN Reason Stop Dose Admin Acetaminophen 650 mg 11/07/24 22:48 11/10/24 15:44 Acetaminophen 325 Mg Tablet PO 650 mg Q6H PRN Administration Mild Pain (1-3) or Fever Al Hydrox/Mg Hydrox/Simethicone 30 ml 11/09/24 05:09 11/12/24 18:55 Mag Hydrox/Al Hydrox/Simeth 30 Ml Udc PO 30 ml Q6H PRN Administration Indigestion Allopurinol 300 mg 11/09/24 14:15 11/13/24 09:01 Allopurinol 300 Mg Tablet PO 300 mg DAILY SAKSHI Administration Apixaban 5 mg 11/12/24 10:55 11/13/24 11:56 Apixaban 5 Mg Tablet PO 5 mg Q12HR SAKSHI Administration Aspirin 81 mg 11/11/24 09:00 11/13/24 09:01 Aspirin 81 Mg Enteric Tablet PO 81 mg QAM SAKSHI Administration Atorvastatin Calcium 80 mg 11/10/24 18:00 11/12/24 17:55 Atorvastatin 40 Mg Tablet PO 80 mg EVENING SAKSHI Administration Calcium Carbonate 200 mg 11/10/24 01:58 11/12/24 18:55 Calcium Carbonate (Tums) 500 Mg (200 Mg Elemental) PO 200 mg Q6H PRN Administration Indigestion Clopidogrel Bisulfate 75 mg 11/11/24 09:00 11/13/24 09:02 Clopidogrel Bisulfate 75 Mg Tablet PO 75 mg QAM SAKSHI Administration Dextrose 12.5 gm 11/07/24 22:49 Dextrose 50% 25 Gm/50 Ml Syringe IV PUSH PRN PRN Hypoglycemia Protocol Ezetimibe 10 mg 11/13/24 09:00 11/13/24 09:01 Ezetimibe 10 Mg Tablet PO 10 mg DAILY SAKSHI Administration Empagliflozin 10 mg 11/12/24 11:15 11/13/24 09:01 Empagliflozin 10 Mg Tablet PO 12/13/24 11:14 10 mg DAILY SAKSHI Administration Ferrous Sulfate 325 mg 11/13/24 09:00 11/13/24 09:02 Ferrous Sulfate [address] PO 325 mg DAILY SAKSHI Administration Glucagon 1 mg 11/07/24 22:49 Glucagon For Inj 1 Mg Vial IM PRN PRN Hypoglycemia Protocol Glucose 15 gm 11/07/24 22:49 Glucose Oral Gel 15 Gm Of Glucse In 37.5 Gm Tube PO PRN PRN Hypoglycemia Protocol Dextrose 1,000 mls @ 100 mls/hr 11/07/24 22:49 Dextrose 5% 1,000 Ml IVPB PRN PRN Hypoglycemia Protocol Insulin Aspart 2 - 5 units 11/08/24 08:00 11/13/24 11:56 Insulin Aspart (*Bkc) 100 Units/Ml SUB-Q Not Given TIDWM [facility] Protocol Insulin Aspart 1 - 2 units 11/08/24 21:00 11/12/24 20:47 Insulin Aspart (*Bkc) 100 Units/Ml SUB-Q 1 units HS SAKSHI Administration Protocol Metoprolol Succinate 50 mg 11/10/24 09:00 11/12/24 10:08 Metoprolol Succinate Ext Rel 50 Mg Tabcr PO 50 mg QAM SAKSHI Administration Metoprolol Tartrate 50 mg 11/12/24 16:20 11/13/24 09:02 Metoprolol Tartrate 50 Mg Tab PO 50 mg Q12HR SAKSHI Administration Metoprolol Tartrate 5 mg 11/12/24 17:56 11/12/24 20:25 Metoprolol Tartrate Inj 5 Mg/5 Ml Vial IV PUSH 5 mg Q6H PRN Administration afib RVR Multivitamins Therapeutic 1 tablet 11/13/24 09:00 11/13/24 09:02 Multivitamins Therapeutic Tab (*Bkc) PO 1 tablet DAILY SAKSHI Administration Nitroglycerin 0.4 mg 11/10/24 03:54 11/10/24 04:00 Nitroglycerin Sl 0.4 Mg Tablet SUBLINGUAL 0.4 mg Q5MIN PRN Administration Chest Pain Ondansetron HCl 4 mg 11/07/24 15:49 Ondansetron Inj 4 Mg/2 Ml Vial IV PUSH Q4H PRN Nausea Pantoprazole Sodium 40 mg 11/11/24 21:00 11/13/24 09:01 Pantoprazole 40 Mg Tablet PO 40 mg Q12HR SAKSHI Administration Radiology Results: ITS Impressions Chest X-Ray 11/07/24 13:33 IMPRESSION: 1. Mild atelectasis at the lung bases. Labs Labs: Laboratory Results - last 24 hr 11/12/24 11/12/24 11/12/24 13:07 16:26 20:38 WBC RBC Hgb Hct MCV MCH MCHC RDW Plt Count MPV Immature Gran % (Auto) Neut % (Auto) Lymph % (Auto) [place] % (Auto) Eos % (Auto) Baso % (Auto) Lymph # (Auto) [place] # (Auto) Eos # (Auto) Baso # (Auto) Abs Immat Gran (auto) Absolute Neuts (auto) Absolute Nucleated RBC Nucleated RBC % APTT Sodium 135 L Potassium 3.4 Chloride 104 Carbon Dioxide 24 Anion Gap 7 BUN 21 H Creatinine 0.81 Estim Creat Clear Calc 56 Estimated GFR > 60 Glucose 261 H POC Capillary Glucose 200 H 233 H Calcium 9.2 Magnesium 2.2 Total Bilirubin AST ALT Alkaline Phosphatase Total Protein Albumin 11/13/24 11/13/24 11/13/24 05:03 07:11 11:14 WBC 7.6 RBC 4.67 Hgb 12.9 L Hct 40.4 L MCV 86.5 MCH 27.6 MCHC 31.9 L RDW 14.4 Plt Count 167 MPV 12.4 H Immature Gran % (Auto) 0.4 Neut % (Auto) 84.9 H Lymph % (Auto) 6.7 L [place] % (Auto) 7.7 Eos % (Auto) 0.0 Baso % (Auto) 0.3 Lymph # (Auto) 0.51 L [place] # (Auto) 0.6 Eos # (Auto) 0.0 Baso # (Auto) 0.0 Abs Immat Gran (auto) 0.03 Absolute Neuts (auto) 6.4 Absolute Nucleated RBC 0.000 Nucleated RBC % 0.0 APTT 47.0 H Sodium 135 L Potassium 4.2 Chloride 103 Carbon Dioxide 24 Anion Gap 8 BUN 18 Creatinine 1.04 Estim Creat Clear Calc 44 Estimated GFR > 60 Glucose 164 H POC Capillary Glucose 176 H 206 H Calcium 9.8 Magnesium 2.4 H Total Bilirubin 8.5 H AST 59 ALT 350 H Alkaline Phosphatase 279 H Total Protein 7.0 Albumin 3.6
== END 2024-11-13 13:46 | disposition home or self-care (01) | DRG 322 ==
LOC: ANHED 12:40 → ANHIMU 18:23
PROVIDERS: Family Medicine Adult Medicine; General Practice; Internal Medicine; Internal Medicine Interventional Cardiology; Nurse Practitioner; Physician Assistant; Admitting Provider Internal Medicine; Emergency Provider Student in an Organized Health Care Education/Training Program; PCP Internal Medicine; Visit Provider Family Medicine
PROC: 4A023N7 Measurement of Cardiac Sampling and Pressure, Left Heart, Percutaneous Approach (ICD-10-PCS; CPT 93452; principal; 2024-11-10 12:30)
PROC: 4A023N7 Measurement of Cardiac Sampling and Pressure, Left Heart, Percutaneous Approach (ICD-10-PCS; CPT 92928; 2024-11-10 12:30)
DX: I21.4 Non-ST elevation (NSTEMI) myocardial infarction (principal); I48.0 Paroxysmal atrial fibrillation; I25.5 Ischemic cardiomyopathy; K21.9 Gastro-esophageal reflux disease without esophagitis; E11.9 Type 2 diabetes mellitus without complications; I11.0 Hypertensive heart disease with heart failure; I50.9 Heart failure, unspecified; M19.90 Unspecified osteoarthritis, unspecified site; E78.5 Hyperlipidemia, unspecified; K25.9 Gastric ulcer, unspecified as acute or chronic, without hemorrhage or perforation; Z53.09 Procedure and treatment not carried out because of other contraindication; Z79.01 Long term (current) use of anticoagulants; Z79.84 Long term (current) use of oral hypoglycemic drugs; Z90.49 Acquired absence of other specified parts of digestive tract; Z98.42 Cataract extraction status, left eye; Z98.41 Cataract extraction status, right eye
CPT/HCPCS: 36415; 71046; 80048; 80053; 82948; 83690; 83735; 84484; 85025; 85027; 85610; 85730; 87493; 93005; 93306; 93458; 96374; 99285; A9270; C1725; C1769; C1874; C1887; C1894; C7532; C9600; J1644; J1815; J2003; J2250; J2305; J2470; J3010; J7030; J7040; J7050

== ENCOUNTER 2025-01-19 08:40 | Outpatient (CLI) | payer MEDICARE, SELFPAY ==
--- OUTSIDE RECORDS SUMMARY | 2025-01-19 09:06 | XMS_ITS | Continuity of Care Document ---
Author Name [facility] Organization [facility] Care Team Providers Care Advertising Sales Agent Name Role Phone [facility] Unavailable Unavailable Problems Combined list of problems from Department of Defense and [facility] Affairs facilities. It does not include entries that were removed or entered in error. Problem Status Onset Date Problem Type Date of Resolution Comments Source Anemia ([facility] 794472084) Active Condition [facility] Diabetes Mellitus Type 2 ([facility] [id number]) Active Condition [facility] GERD - Gastro-Esophageal Reflux Disease ([facility] 975807549) Active Condition [facility] Gout ([facility] [id number]) Active Condition [facility] History of gastric ulcer Active Condition [facility] Hyperlipidemia ([facility] 47286525) Active Condition [facility] Low Back Pain ([facility] 090684020) Active Condition [facility] Paroxysmal atrial fibrillation Active Condition [facility] Past history of procedure Active Condition March 18, 2020 Entered By: KEI VALLES Comment: 2005 appendectomyMay 2019 Entered By: KEI VALLES Comment: 09/2003 right knee patellar tendon surgery with hardware placementMay 2019 Entered By: KEI VALLES Comment: 2018 bilateral eye cataract surgery [facility] Vitamin D Deficiency ([facility] 0707938) Active Condition [facility] Diagnosis: ICD-10-CM Z74.1 Need for assistance with personal care Active Diagnosis [facility] Diagnosis: ICD-10-CM I48.0 Paroxysmal atrial fibrillation Active Diagnosis [facility] Diagnosis: ICD-10-CM Z65.9 Problem related to unspecified psychosocial circumstances Active Diagnosis [facility] Diagnosis: ICD-10-CM E44.0 Moderate protein-calorie malnutrition Active Diagnosis [facility] Diagnosis: ICD-10-CM Z13.9 Encounter for screening, unspecified Active Diagnosis [facility] Diagnosis: ICD-10-CM E11.9 Type 2 diabetes mellitus without complications Active Diagnosis [facility] Diagnosis: ICD-10-CM Z55.9 Problems related to education and literacy, unspecified Active Diagnosis [facility] Medications Combined list of outpatient medications from Department of Defense and Veterans Affairs facilities.Medications provided include 1) outpatient medications from the last 15 months, and 2) patient-reported medications. Medication Details Route Status Patient Instructions Prescription Expires Prescription Number Last Dispense Date Ordering Provider Order Date Order Qty Source ALLOPURINOL 300MG TAB TAKE ONE TABLET BY MOUTH ONCE A DAY ORAL ACTIVE PACE,VICT OR 2019 [facility] ASPIRIN 81MG TAB,CHEWABL E CHEW AND SWALLOW ONE TABLET BY MOUTH ONCE A DAY ORAL ACTIVE PACE,VICT OR 2019 [facility] DAPAGLIFLOZ IN 10MG TAB TAKE ONE TABLET BY MOUTH ONCE A DAY ORAL ACTIVE ME OLMAN TTISA 2022 [facility] DILTIAZEM (EQV-TIAZAC AB4) 120MG 24HR CAP TAKE 1 CAPSULE BY MOUTH EVERY MORNING BEFORE A MEAL ORAL ACTIVE ME OLMAN TTISA 2023 [facility] FERROUS SO4 325MG TAB TAKE ONE TABLET BY MOUTH ONCE A DAY ORAL ACTIVE PACE,VICT OR M 2019 [facility] FOLIC ACID 1MG TAB TAKE ONE TABLET BY MOUTH ONCE A DAY ORAL ACTIVE PACE,VICT OR M 2020 [facility] GLUCERNA SHAKE LIQUID STRAWBERRY TAKE 1 CANFUL BY MOUTH TWICE A DAY FOR NUTRITIO N/DIETAR Y SUPPLEME NTATION (SHAKE WELL) ORAL ACTIVE 10/18/2025 [id number] BLAKE OSPINA 2024 48 [facility] GLUCERNA SHAKE LIQUID STRAWBERRY TAKE 1 CANFUL BY MOUTH TWICE A DAY FOR NUTRITIO N/DIETAR Y SUPPLEME NTATION ([place]) ORAL DISCONT INUED BY KAITLYN R 11/13/2024 [id number] BLAKE OSPINA 2023 48 [facility] GLUCERNA THERAPEUTIC NUTRITION SHAKE LIQUID STRAWBERRY TAKE 1 CANFUL BY MOUTH TWICE A DAY FOR NUTRITIO N/DIETAR Y SUPPLEME NTATION ([place]) [facility] 02/25/2025 [id number] BLAKE OSPINA 2023 48 [facility] GLUCERNA THERAPEUTIC NUTRITION SHAKE LIQUID STRAWBERRY TAKE 1 CANFUL BY MOUTH TWICE A DAY FOR NUTRITIO N/DIETAR Y SUPPLEME NTATION ([place]) [facility] 02/25/2025 [id number] BLAKE OSPINA Guille 2023 48 [facility] GLUCOSAMINE CAP/TAB TAKE 2 CAPSULES BY MOUTH TWICE A DAY ORAL ACTIVE PACE,VICT OR 2019 [facility] METFORMIN HCL 1000MG TAB TAKE ONE TABLET BY MOUTH TWICE A DAY WITH MEALS ORAL ACTIVE PACE,VICT OR 2019 [facility] NON-FORMULA RY TAB TAKE GLUCOCIL 1 TABLET OTC BY MOUTH ONCE A DAY ORAL ACTIVE PACE,VICT OR 2019 [facility] OMEPRAZOLE 20MG CAP,EC TAKE 1 CAPSULE BY MOUTH EVERY MORNING BEFORE A MEAL ORAL ACTIVE PACE,VICT OR 2019 [facility] RANOLAZINE 500MG TAB,SA TAKE ONE TABLET BY MOUTH TWICE A DAY ORAL ACTIVE THURMAN,ME TTISA 2023 [facility] SIMVASTATIN TAB TAKE ONE TABLET BY MOUTH EVERY EVENING ORAL ACTIVE PACE,VICT OR 2019 [facility] Allergies, Adverse Reactions, Alerts Combined list of allergies from Department of Defense and Veterans Affairs facilities. It does not include entries that were removed or entered in error. Substance Category Reaction Severity Reaction type Status Date Reported Comments Source LISINOPRIL Propensity to adverse reactions to drug (finding) Cough active [address] [facility] Immunizations Combined list of available immunizations from the Department of Defense and [facility] Affairs facilities. Immunization Series Date Given Administered By Site Reaction Lot Number CVX Code Drug Internet Technology Manager Status Comments Source INFLUENZA, HIGH-DOSE, TRIVALENT, PF 1 2023 135 complet [facility] N COVID-19 (PFIZER), MRNA, LNP-S, PF, ANNIE-SUCROSE, 30 MCG/0.3 ML (AGES 12+ YEARS) 6 2023 309 complet [facility] N COVID-19 (PFIZER), MRNA, LNP-S, PF, ANNIE-SUCROSE, 30 MCG/0.3 ML (AGES 12+ YEARS) 1 2023 309 complet [facility] RSV, RECOMBINANT, PROTEIN SUBUNIT RSVPREF, ADJUVANT RECONSTITUTED , 0.5 ML, PF 1 2023 303 complet [facility] COVID-19 ([facility]), MRNA, LNP-S, PF, ANNIE-SUCROSE, 30 MCG/0.3 ML (AGES 12+ YEARS) 5 2022 309 complet [facility] N INFLUENZA, UNSPECIFIED FORMULATION 2022 88 complet [facility] PNEUMOCOCCAL POLYSACCHARID E PPV23 2022 33 complet [facility] RESPIRATORY SYNCYTIAL VIRUS (RSV) VACCINE, UNSPECIFIED 2022 314 complet [facility] N COVID-19 (MODERNA), MRNA, LNP-S, BIVALENT BOOSTER, PF, 50 MCG/0.5 ML OR 25MCG/0.25 ML DOSE 1 2021 INDER MENA LEFT DELTO ID [id number] 229 complet [facility] PNEUMOCOCCAL CONJUGATE PCV20, POLYSACCHARID E [id number] CONJUGATE, ADJUVANT, PF 2021 INDER MENA LEFT DELTO ID [id number] 216 complet [facility] INFLUENZA, HIGH-DOSE, QUADRIVALENT 5 2021 197 complet [facility] N INFLUENZA, UNSPECIFIED FORMULATION [address] [facility] COVID-19 (MODERNA), MRNA, LNP-S, PF, 100 MCG/0.5ML DOSE OR 50 MCG/0.25ML DOSE 4 2021 NONE 207 complet ed MOD; [id number]; 2 [facility] ZOSTER RECOMBINANT 2 2021 NONE 187 complet ed [facility] COVID-19 (MODERNA), MRNA, LNP-S, PF, 100 MCG/0.5 ML DOSE 3 2020 207 complet ed [facility] INFLUENZA, HIGH-DOSE, QUADRIVALENT 4 2020 197 complet ed [facility] INFLUENZA, UNSPECIFIED FORMULATION 2020 88 complet ed [facility] TDAP 2020 NONE 115 complet ed [facility] ZOSTER RECOMBINANT 1 2020 NONE 187 complet ed [facility] COVID-19 (MODERNA), MRNA, LNP-S, PF, 100 MCG/0.5 ML DOSE 2 2020 207 complet ed [facility] COVID-19 (MODERNA), MRNA, LNP-S, PF, 100 MCG/0.5 ML DOSE 1 2020 207 complet ed [facility] INFLUENZA, HIGH-DOSE, QUADRIVALENT 3 2019 197 complet ed [facility] INFLUENZA, UNSPECIFIED FORMULATION 2019 88 complet ed [facility] INFLUENZA, HIGH DOSE SEASONAL 2 2018 135 complet ed [facility] PNEUMOCOCCAL CONJUGATE PCV 13 2018 133 complet ed chart review [facility] PNEUMOCOCCAL POLYSACCHARID E PPV23 2018 33 complet ed [facility] INFLUENZA, HIGH DOSE SEASONAL 1 2017 135 complet ed [facility] Results Combined list of recent chemistry, hematology and other laboratory results from Department of Defense and Veterans Affairs, ranging from 15 months to all on record, depending upon the facility. Order Name Results Value Reference Range Date Interpretation Specimen Comments Source VITAMIN D, 25-HYDROXY 25-HYDROXYVI TAMIN D3 [MASS/VOLUME ] IN SERUM OR PLASMA 47.5 ng/mL 30 - 96 08/14 Specimen Type: SERUM No comment entered. Ordering Provider: JANICE DIAMOND Report Released Date/Time: Aug 14, 2024 11:07 AM Reporting Lab: [facility] [address] [place] [phone] Performing Lab: [address] [phone] [facility] HGA1C HEMOGLOBIN A1C/HEMOGLOB IN.TOTAL IN BLOOD 6.9 4.0 - 6.0 08/14 H Specimen Type: BLOOD No comment entered. Ordering Provider: JANICE DIAMOND Report Released Date/Time: Aug 14, 2024 11:07 AM Reporting Lab: [facility] [address] [place] [phone] Performing Lab: [facility] [address] [place] [phone] [facility] COMPREHENSI VE METABOLIC PANEL CREATININE [MASS/VOLUME ] IN SERUM OR PLASMA 1.15 mg/dL 0.7 - 1.3 08/14 Specimen Type: PLASMA Comment: No hemolysis noted. Ordering Provider: JANICE DIAMOND Report Released Date/Time: Aug 14, 2024 11:07 AM Reporting Lab: [facility] [address] [place] [phone] Performing Lab: [facility] [address] [place] [phone] [facility] COMPREHENSI VE METABOLIC PANEL UREA NITROGEN [MASS/VOLUME ] IN SERUM OR PLASMA 19.7 mg/dL 9.0 - 25.0 08/14 Specimen Type: PLASMA Comment: No hemolysis noted. Ordering Provider: JANICE DIAMOND Report Released Date/Time: Aug 14, 2024 11:07 AM Reporting Lab: [facility] [address] [facility] [address] Performing Lab: [facility] [address] [place] [phone] [facility] COMPREHENSI VE METABOLIC PANEL GLUCOSE [MASS/VOLUME ] IN SERUM OR PLASMA 123 mg/dL 72 - 99 08/14 H Specimen Type: PLASMA Comment: No hemolysis noted. Ordering Provider: JANICE DIAMOND Report Released Date/Time: Aug 14, 2024 11:07 AM Reporting Lab: [facility] [address] [place] [phone] Performing Lab: [address] [phone] [place] [address] COMPREHENSI VE METABOLIC PANEL SODIUM [MOLES/VOLUM E] IN SERUM OR PLASMA 139 meq/L 136 - 145 08/14 Specimen Type: PLASMA Comment: No hemolysis noted. Ordering Provider: JANICE DIAMOND Report Released Date/Time: Aug 14, 2024 11:07 AM Reporting Lab: [facility] [address] [place] [phone] Performing Lab: [address] [phone] [place] [address] COMPREHENSI VE METABOLIC PANEL POTASSIUM [MOLES/VOLUM E] IN SERUM OR PLASMA 4.7 meq/L 3.5 - 5 08/14 Specimen Type: PLASMA Comment: No hemolysis noted. Ordering Provider: JANICE DIAMOND Report Released Date/Time: Aug 14, 2024 11:07 AM Reporting Lab: [facility] [address] [place] [phone] Performing Lab: [address] [phone] [place] [address] COMPREHENSI VE METABOLIC PANEL CHLORIDE [MOLES/VOLUM E] IN SERUM OR PLASMA 102 meq/L 98 - 107 08/14 Specimen Type: PLASMA Comment: No hemolysis noted. Ordering Provider: JANICE DIAMOND Report Released Date/Time: Aug 14, 2024 11:07 AM Reporting Lab: [facility] [address] [facility] [phone] Performing Lab: [facility] [address] [facility] [phone] [facility] COMPREHENSI VE METABOLIC PANEL CARBON DIOXIDE, TOTAL [MOLES/VOLUM E] IN SERUM OR PLASMA 24 meq/L 22 - 31 08/14 Specimen Type: PLASMA Comment: No hemolysis noted. Ordering Provider: JANICE DIAMOND Report Released Date/Time: Aug 14, 2024 11:07 AM Reporting Lab: [facility] [address] [facility] [phone] Performing Lab: [facility] [address] [place] [phone] [facility] COMPREHENSI VE METABOLIC PANEL CALCIUM [MASS/VOLUME ] IN SERUM OR PLASMA 10.6 mg/dL 8.4 - 10.4 08/14 H Specimen Type: PLASMA Comment: No hemolysis noted. Ordering Provider: JANICE DIAMOND Report Released Date/Time: Aug 14, 2024 11:07 AM Reporting Lab: [facility] [phone] Performing Lab: [facility] [address] [facility] [phone] [facility] COMPREHENSI VE METABOLIC PANEL PROTEIN [MASS/VOLUME ] IN SERUM OR PLASMA 7.7 g/dL 6 - 8.6 08/14 Specimen Type: PLASMA Comment: No hemolysis noted. Ordering Provider: JANICE DIAMOND Report Released Date/Time: Aug 14, 2024 11:07 AM Reporting Lab: [facility] [phone] Performing Lab: [facility] [address] [place] [phone] [facility] COMPREHENSI VE METABOLIC PANEL ALBUMIN [MASS/VOLUME ] IN SERUM OR PLASMA 4.5 g/dL 3.4 - 5 08/14 Specimen Type: PLASMA Comment: No hemolysis noted. Ordering Provider: JANICE DIAMOND Report Released Date/Time: Aug 14, 2024 11:07 AM Reporting Lab: [facility] [address] [place] [address] Performing Lab: [facility] [address] [place] [phone] [place] [address] COMPREHENSI VE METABOLIC PANEL BILIRUBIN.TO CAREY [MASS/VOLUME ] IN SERUM OR PLASMA 0.6 mg/dL 0.2 - 1.2 08/14 Specimen Type: PLASMA Comment: No hemolysis noted. Ordering Provider: JANICE DIAMOND Report Released Date/Time: Aug 14, 2024 11:07 AM Reporting Lab: [address] [phone] Performing Lab: [address] [phone] COMPREHENSI VE METABOLIC PANEL ALKALINE PHOSPHATASE [ENZYMATIC ACTIVITY/VOL UME] IN SERUM OR PLASMA 58 U/L 40 - 150 08/14 Specimen Type: PLASMA Comment: No hemolysis noted. Ordering Provider: JANICE DIAMOND Report Released Date/Time: Aug 14, 2024 11:07 AM Reporting Lab: [facility] [address] [place] [phone] Performing Lab: [address] [phone] [place] [address] COMPREHENSI VE METABOLIC PANEL ASPARTATE AMINOTRANSFE RASE [ENZYMATIC ACTIVITY/VOL UME] IN SERUM OR PLASMA 15 U/L 5 - 34 08/14 Specimen Type: PLASMA Comment: No hemolysis noted. Ordering Provider: JANICE DIAMOND Report Released Date/Time: Aug 14, 2024 11:07 AM Reporting Lab: [facility] [address] [place] [phone] Performing Lab: [address] [phone] [facility] COMPREHENSI VE METABOLIC PANEL ALANINE AMINOTRANSFE RASE [ENZYMATIC ACTIVITY/VOL UME] IN SERUM OR PLASMA 16 U/L 8 - 40 08/14 Specimen Type: PLASMA Comment: No hemolysis noted. Ordering Provider: JANICE DIAMOND Report Released Date/Time: Aug 14, 2024 11:07 AM Reporting Lab: [facility] [address] [place] [phone] Performing Lab: [address] [phone] COMPREHENSI VE METABOLIC PANEL GLOMERULAR FILTRATION RATE/1.73 SQ M.PREDICTED [VOLUME RATE/AREA] IN SERUM, PLASMA OR BLOOD BY CREATININE-B ASED FORMULA (CKD-EPI 2020) 62.0 60 08/14 Specimen Type: PLASMA Comment: No hemolysis noted. Ordering Provider: JANICE DIAMOND Report Released Date/Time: Aug 14, 2024 11:07 AM Reporting Lab: [address] [phone] Performing Lab: [address] [phone] [place] [address] TSH (MA-PB) THYROTROPIN [UNITS/VOLUM E] IN SERUM OR PLASMA 3.238 u[IU]/ mL 0.47 - 5 08/14 Specimen Type: SERUM No comment entered. Ordering Provider: JANICE DIAMOND Report Released Date/Time: Aug 14, 2024 11:07 AM Reporting Lab: [address] [address] Performing Lab: [address] [phone] [place] [address] LIPID PANEL (STL) CHOLESTEROL [MASS/VOLUME ] IN SERUM OR PLASMA 168 mg/dL 0 - 200 08/14 Specimen Type: PLASMA Comment: No hemolysis noted. Ordering Provider: JANICE DIAMOND Report Released Date/Time: Aug 14, 2024 11:07 AM Reporting Lab: [address] [phone] Performing Lab: [facility] [address] [facility] [address] [facility] LIPID PANEL (STL) TRIGLYCERIDE [MASS/VOLUME ] IN SERUM OR PLASMA 79 mg/dL 0 - 150 08/14 Specimen Type: PLASMA Comment: No hemolysis noted. Ordering Provider: JANICE DIAMOND Report Released Date/Time: Aug 14, 2024 11:07 AM Reporting Lab: [address] [address] Performing Lab: [address] [phone] [facility] LIPID PANEL (STL) CHOLESTEROL IN LDL [MASS/VOLUME ] IN SERUM OR PLASMA BY CALCULATION 80 mg/dL 08/14 Specimen Type: PLASMA Comment: No hemolysis noted. Ordering Provider: JANICE DIAMOND Report Released Date/Time: Aug 14, 2024 11:07 AM Reporting Lab: [address] [address] Performing Lab: [address] [phone] [facility] LIPID PANEL (STL) CHOLESTEROL IN HDL [MASS/VOLUME ] IN SERUM OR PLASMA 72 mg/dL 40 08/14 Specimen Type: PLASMA Comment: No hemolysis noted. Ordering Provider: JANICE DIAMOND Report Released Date/Time: Aug 14, 2024 11:07 AM Reporting Lab: [facility] [address] [place] [phone] Performing Lab: [address] [address] [facility] CBC LEUKOCYTES [#/VOLUME] IN BLOOD BY AUTOMATED COUNT 6.1 10*3/u L 3.6 - 11.2 08/14 Specimen Type: BLOOD No comment entered. Ordering Provider: JANICE DIAMOND Report Released Date/Time: Aug 14, 2024 11:07 AM Reporting Lab: [facility] [address] [place] [phone] Performing Lab: [facility] [address] [facility] [address] [facility] CBC ERYTHROCYTES [#/VOLUME] IN BLOOD BY AUTOMATED COUNT 5.32 10*6/u L 4.10 - 5.70 08/14 Specimen Type: BLOOD No comment entered. Ordering Provider: JANICE DIAMOND Report Released Date/Time: Aug 14, 2024 11:07 AM Reporting Lab: [address] [address] Performing Lab: [address] [phone] [place] [address] CBC HEMOGLOBIN [MASS/VOLUME ] IN BLOOD 14.4 g/dL 13.1 - 16.8 08/14 Specimen Type: BLOOD No comment entered. Ordering Provider: JANICE DIAMOND Report Released Date/Time: Aug 14, 2024 11:07 AM Reporting Lab: [address] [address] Performing Lab: [address] [phone] [place] [address] CBC HEMATOCRIT [VOLUME FRACTION] OF BLOOD 46.7 38.2 - 48.4 08/14 Specimen Type: BLOOD No comment entered. Ordering Provider: JANICE DIAMOND Report Released Date/Time: Aug 14, 2024 11:07 AM Reporting Lab: [address] [address] Performing Lab: [address] [phone] [facility] CBC MCV [ENTITIC VOLUME] BY AUTOMATED COUNT 87.8 fL 80.0 - 100.0 08/14 Specimen Type: BLOOD No comment entered. Ordering Provider: JANICE DIAMOND Report Released Date/Time: Aug 14, 2024 11:07 AM Reporting Lab: [address] [address] Performing Lab: [facility] [address] [place] [phone] [facility] CBC MCH [ENTITIC MASS] BY AUTOMATED COUNT 27.1 pg 27.0 - 34.0 08/14 Specimen Type: BLOOD No comment entered. Ordering Provider: JANICE DIAMOND Report Released Date/Time: Aug 14, 2024 11:07 AM Reporting Lab: [address] [address] Performing Lab: [address] [address] [facility] CBC MCHC [MASS/VOLUME ] BY AUTOMATED COUNT 30.8 g/dL 33.0 - 36.0 08/14 L Specimen Type: BLOOD No comment entered. Ordering Provider: JANICE DIAMOND Report Released Date/Time: Aug 14, 2024 11:07 AM Reporting Lab: [address] [address] Performing Lab: [address] [phone] [facility] CBC PLATELETS [#/VOLUME] IN BLOOD BY AUTOMATED COUNT 221 10*3/u L 150 - 400 08/14 Specimen Type: BLOOD No comment entered. Ordering Provider: JANICE DIAMOND Report Released Date/Time: Aug 14, 2024 11:07 AM Reporting Lab: [address] [address] Performing Lab: [address] [address] [facility] CBC PLATELET MEAN VOLUME [ENTITIC VOLUME] IN BLOOD BY AUTOMATED COUNT 11.8 fL 7.5 - 11.2 08/14 H Specimen Type: BLOOD No comment entered. Ordering Provider: JANICE DIAMOND Report Released Date/Time: Aug 14, 2024 11:07 AM Reporting Lab: [address] [address] Performing Lab: [facility] [address] [facility] [phone] [facility] CBC ERYTHROCYTE DISTRIBUTION WIDTH [RATIO] BY AUTOMATED COUNT 15.2 11.8 - 15.1 08/14 H Specimen Type: BLOOD No comment entered. Ordering Provider: JANICE DIAMOND Report Released Date/Time: Aug 14, 2024 11:07 AM Reporting Lab: [facility] [address] [facility] [address] Performing Lab: [facility] [address] [place] [phone] [facility] CBC LYMPHOCYTES/ 100 LEUKOCYTES IN BLOOD BY AUTOMATED COUNT 23 08/14 Specimen Type: BLOOD No comment entered. Ordering Provider: JANICE DIAMOND Report Released Date/Time: Aug 14, 2024 11:07 AM Reporting Lab: [address] [address] Performing Lab: [facility] [address] [facility] [address] [facility] CBC MONOCYTES/10 0 LEUKOCYTES IN BLOOD BY AUTOMATED COUNT 11 08/14 Specimen Type: BLOOD No comment entered. Ordering Provider: JANICE DIAMOND Report Released Date/Time: Aug 14, 2024 11:07 AM Reporting Lab: [facility] [address] [facility] [address] Performing Lab: [facility] [address] [place] [phone] [facility] CBC NEUTROPHILS/ 100 LEUKOCYTES IN BLOOD BY AUTOMATED COUNT 61 08/14 Specimen Type: BLOOD No comment entered. Ordering Provider: JANICE DIAMOND Report Released Date/Time: Aug 14, 2024 11:07 AM Reporting Lab: [facility] [address] [facility] [address] Performing Lab: [facility] [address] [facility] [address] [facility] CBC EOSINOPHILS/ 100 LEUKOCYTES IN BLOOD BY AUTOMATED COUNT 4 08/14 Specimen Type: BLOOD No comment entered. Ordering Provider: JANICE DIAMOND Report Released Date/Time: Aug 14, 2024 11:07 AM Reporting Lab: [facility] [address] [place] [phone] Performing Lab: [facility] [address] [place] [address] [facility] CBC BASOPHILS/10 0 LEUKOCYTES IN BLOOD BY AUTOMATED COUNT 1 08/14 Specimen Type: BLOOD No comment entered. Ordering Provider: JANICE DIAMOND Report Released Date/Time: Aug 14, 2024 11:07 AM Reporting Lab: [address] [address] Performing Lab: [address] [phone] CBC LYMPHOCYTES [#/VOLUME] IN BLOOD BY AUTOMATED COUNT 1.43 10*3/u L 0.77 - 4.50 08/14 Specimen Type: BLOOD No comment entered. Ordering Provider: JANICE DIAMOND Report Released Date/Time: Aug 14, 2024 11:07 AM Reporting Lab: [facility] [address] [place] [phone] Performing Lab: [facility] [address] [place] [phone] [facility] CBC MONOCYTES [#/VOLUME] IN BLOOD BY AUTOMATED COUNT 0.65 10*3/u L 0.19 - 0.80 08/14 Specimen Type: BLOOD No comment entered. Ordering Provider: JANICE DIAMOND Report Released Date/Time: Aug 14, 2024 11:07 AM Reporting Lab: [facility] [address] [place] [phone] Performing Lab: [facility] [address] [place] [phone] [facility] CBC NEUTROPHILS [#/VOLUME] IN BLOOD BY AUTOMATED COUNT 3.71 10*3/u L 2.10 - 8.00 08/14 Specimen Type: BLOOD No comment entered. Ordering Provider: JANICE DIAMOND Report Released Date/Time: Aug 14, 2024 11:07 AM Reporting Lab: [address] [address] Performing Lab: [address] [address] [facility] CBC EOSINOPHILS [#/VOLUME] IN BLOOD BY AUTOMATED COUNT 0.25 10*3/u L 0.00 - 0.60 08/14 Specimen Type: BLOOD No comment entered. Ordering Provider: JANICE DIAMOND Report Released Date/Time: Aug 14, 2024 11:07 AM Reporting Lab: [place] [phone] Performing Lab: [place] [id number] CBC BASOPHILS [#/VOLUME] IN BLOOD BY AUTOMATED COUNT 0.07 10*3/u L 0.00 - 0.20 08/14 Specimen Type: BLOOD No comment entered. Ordering Provider: JANICE DIAMOND Report Released Date/Time: Aug 14, 2024 11:07 AM Reporting Lab: [address] [address] Performing Lab: [place] [phone] GLUCOSE,BLO OD-poct (STL) GLUCOSE [MASS/VOLUME ] IN BLOOD BY AUTOMATED TEST STRIP 118 mg/dL 72 - 99 08/14 H Specimen Type: BLOOD Comment: Test Performed by: [id number] Meter #: [id number] Ordering Provider: JANICE DIAMOND Report Released Date/Time: Aug 14, 2024 03:30 PM Reporting Lab: [facility] [address] [phone] Performing Lab: [facility] [address] [phone] [facility] HGA1C HEMOGLOBIN A1C/HEMOGLOB IN.TOTAL IN BLOOD 7.0 4.0 - 6.0 05/23 H Specimen Type: BLOOD No comment entered. Ordering Provider: MET EVIE THURMAN Report Released Date/Time: May 23, 2024 10:03 AM Reporting Lab: [address] [address] Performing Lab: [address] [phone] [place] [address] VITAMIN D, 25-HYDROXY 25-HYDROXYVI TAMIN D3 [MASS/VOLUME ] IN SERUM OR PLASMA 41.5 ng/mL 30 - 96 05/23 Specimen Type: SERUM No comment entered. Ordering Provider: MET EVIE THURMAN Report Released Date/Time: May 23, 2024 09:39 AM Reporting Lab: [address] [address] Performing Lab: [address] [address] [facility] GLUCOSE,BLO OD-poct (STL) GLUCOSE [MASS/VOLUME ] IN BLOOD BY AUTOMATED TEST STRIP 132 mg/dL 72 - 99 12/25 H Specimen Type: BLOOD Comment: Test Performed by: [id number] Meter #: [id number] Ordering Provider: MET EVIE THURMAN Report Released Date/Time: Dec 25, 2023 05:05 PM Reporting Lab: [address] [phone] Performing Lab: [address] [address] [facility] Vital Signs Combined list of inpatient and outpatient Vital Signs from Department of Defense and Veterans Affairs, ranging from 12 months to all on record, depending upon the facility. Vital Sign Value Date Comments Source SYSTOLIC BLOOD PRESSURE 102 08/14/2024 10:41:43 [facility] DIASTOLIC BLOOD PRESSURE 60 08/14/2024 10:41:43 [facility] PULSE OXIMETRY 97 08/14/2024 10:41:43 [facility] WEIGHT 157 08/14/2024 10:41:[facility] BMI 21 kg/m2 08/14/2024 10:41:[facility] PAIN 0 08/14/2024 10:41:[facility] HEIGHT 73 08/14/2024 10:41:[facility] TEMPERATURE 97.5 08/14/2024 10:41:43 [facility] PULSE 70 08/14/2024 10:41:[facility] RESPIRATION 18 08/14/2024 10:41:43 [facility] WEIGHT 160 05/23/2024 09:12:28 [facility] BMI 21 kg/m2 05/23/2024 09:12:28 [facility] WEIGHT 151.4 02/25/2024 15:08:01 [facility] BMI 20 kg/m2 02/25/2024 15:08:[facility] Encounters Combined list of: 1) Encounters from Department of Veterans Affairs facilities going backup to the last 18 months, not all VA inpatient encounters are included; 2) Encounters from the Department of Defense facilities going backup to 280 months. Location Location Details Encounter Type Encounter Number Reason For Visit Attending Provider ADM Date DC Date Status Disposition Source [facility] Outpatient Encounter [id number] 08/05 [facility] Outpatient Encounter [id number] 08[facility] Outpatient Encounter [id number] 08[facility] Outpatient Encounter [id number] 11/22 [facility] N [facility] Outpatient Encounter [id number] 12/07 [facility] Outpatient Encounter [id number] 12/07 [facility] Outpatient Encounter 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 complic ations MET OLMAN EVIE 12/25 [facility] IMG RTA DETC/MNTR DS PHY/QHP [id number] Diagnos is: ICD-10- CM Z13.9 Encount er for screeni ng, unspeci fied CHRIS SANTOS 12/25 [facility] Outpatient Encounter [id number] EMMANUEL VINSON 12/26 [facility] Outpatient Encounter [id number] 02/03 [facility] [place] [id number] Diagnos is: ICD-10- CM 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 GEEBLAKE C 02/24 [facility] MED NUTRITION INDIV SUBSEQ [id number] Diagnos is: ICD-10- CM 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 BLAKE FLYNN 05/23 [facility] Outpatient Encounter [id number] 07/21 [facility] Outpatient Encounter [id number] 08/11 [facility] Outpatient Encounter [id number] CEZAR MENA 08/13 [facility] OFFICE O/P EST MOD 30 MIN [id number] Diagnos is: ICD-10- CM I48.0 Paroxys mal atrial fibrill JANICE Goyal 08/14 [facility] Outpatient Encounter [id number] 08/21 [facility] Outpatient Encounter [id number] 10/15 [facility] Outpatient Encounter [id number] 10/15 [facility] Outpatient Encounter [id number] DICK DAS 10/16 [facility] HC PRO PHONE CALL 21-30 MIN [id number] Diagnos is: ICD-10- CM Z65.9 Problem related to unspeci fied psychos ocial circums tances RONEY BLAIR L 10/20 [facility] HLTH BHV ASSMT/REAS SESSMENT [id number] Diagnos is: ICD-10- CM I48.0 Paroxys mal atrial fibrill ation JUD BRADSHAW A L 10/27 [facility] Outpatient Encounter [id number] 10/27 [facility] Outpatient Encounter [id number] SHOBHA BISHOP 10/30 [facility] PROGRAM INTAKE ASSESSMENT [id number] Diagnos is: ICD-10- CM Z74.1 Need for assista nce with WANDER Daugherty 11/27 [facility] Outpatient Encounter [id number] 11/27 [facility] Outpatient Encounter [id number] 12/12 [facility] Outpatient Encounter [id number] RONEY BLAIR 12/17 [facility] Social History Combined list of available smoking, tobacco, and other social history from Department of Defense and Veterans Affairs facilities. Social History Type Response Date Comment Sour e Tobacco smoking status NHIS VA-TOBACCO NEVER USED 08/13/2024 [facility] History of tobacco use VA-TOBACCO NEVER USED 05/04/2023 [facility] History of tobacco use VA-TOBACCO NEVER USED 03/20/2022 [facility] History of tobacco use VA-TOBACCO NEVER USED 03/11/2021 [facility] History of tobacco use VA-TOBACCO NEVER USED 03/04/2020 [facility] Plan of Care List of future care activities from Department of Veterans Affairs facilities. Additional future care activities may be listed in the Assessment and Plan section. Date/Time Care Activity Care Activity Detail Facili ty 02/13/2025 AMBULATORY - MEDICINE AMBULATORY - MEDICI NE [facility]
--- OUTSIDE RECORDS SUMMARY | 2025-01-19 09:07 | XMS_ITS ---
Author Name [facility] Organization [facility] Address [address] [place] [address] Care Team Providers Care Humanities Coordinator Name Role Phone JANICE DIAMOND Primary Care Provider Unavail able Insurance Providers: All historical and current Section Date Range: From patient's date of to the date document was created. This section includes the names of all active insurance providers for the patient. Insurance Provider Type of Coverage Plan Name Start of Policy Coverage End of Policy Coverage Group Number Member ID Insurance Provider's Telephone Number Policy Eugene's Name Patient's Relationship to Policy Eugene MEDICARE (WNR) MEDICARE (M) PART B Jan 04, 2004 PART B [id number] [phone] VILMA LEWIS OCHOA PATIENT MEDICARE (WNR) MEDICARE (M) PART A Aug 05, 2002 PART A [id number] VILMA LEWIS OCHAO PATIENT Selected Encounter This section includes the information on record at [place] for the Encounter. Date/Time Encounter Type Encounter Description Reason Provider Source Nov 27, 2024 01:00 PM PROGRAM INTAKE ASSESSMENT CAREGIVER SUPPORT PROGRAM ICD-10-CM Z74.1 Need for assistance with personal care NAYELI CORADO Encounter Template Text not used by [facility] Assessments - Encounter Diagnoses This section includes the primary and secondary diagnoses documented for the Encounter. Date/Time Primary/Secondary Diagnosis Diagnosis Name Provider Source Nov 27, 2024 02:35 PM PRIMARY Need for assistance with personal care NAYELI CORADO Ja [facility] Plan of Treatment: Future Appointments (+ 6 months) and Future Tests (+/- 45 days) The Plan of Treatment section includes future care activities for the patient from all [place] treatmentfacilities. This section includes future appointments and future orders which are active, pending or scheduled. Future Appointments This section includes appointments that were scheduled to occur 6 months from the date of the Encounter, up to a maximum of 20 appointments. The data comes from all [place] treatment facilities. Appointment Date/Time Appointment Type Appointme nt Facility Name Feb 13, 2025 02:00 PM AMBULATORY - MEDICINE [facility] Social History: Smoking Status (Most current) and Tobacco Use (All prior to encounter date) This section includes the most current, and the historical, smoking and tobacco- related health factors from the [place] facility where the Encounter took place. Current Smoking Status This section includes the most current smoking, or tobacco-related health factor, from the [place] facility where the Encounter took place. Date/Time Current Smoking Status Comment Joy ity Aug 13, 2024 04:00 PM VA-TOBACCO NEVER USED [facility] Tobacco Use History This section includes a history of the smoking, or tobacco-related health factors, that were collected on or before the date of the Encounter. The data comes from the [place] facility where the Encounter took place. Date/Time Smoking Status/Tobacco Use Comment F acility May 04, 2023 03:40 PM VA-TOBACCO NEVER USED [facility] March 20, 2022 04:29 PM VA-TOBACCO NEVER USED [facility] March 11, 2021 01:07 PM VA-TOBACCO NEVER USED [facility] Encounter Notes: All associated encounter notes This section contains the clinical notes associated to the Encounter. Date/Time Encounter Note(s) Provider Source Nov 27, 2024 01:04 PM CAREGIVER CERTIFIC ATE: LOCAL TITLE: CSP PCAFC FUNCTIONAL ASSESSMENT INSTRUMENT STANDARD TITLE: CAREGIVER CERTIFICATE DATE OF NOTE: NOV 27, 2024@13:04 ENTRY DATE: NOV 27, 2024@13:04:55 AUTHOR: NAYELI CORADO EXP COSIGNER: URGENCY: STATUS: COMPLETED FUNCTIONAL ASSESSMENT INSTRUMENT The Program of Comprehensive Assistance for Family Caregivers (PCAFC) provides services and additional benefits to approved and designated Family Caregivers of eligible Veterans or service members who are in need of personal care services for a minimum of six continuous months based on any one of the following: - An inability to perform one or more activities of daily living; - A need for supervision or protection based on symptoms or residuals of neurological or other impairment or injury; or - A need for regular or extensive instruction or supervision without which the ability of the [place] to function in daily life would be seriously impaired. Assessment of the need for personal care services is just one piece of the overall application process. The Functional Assessment Instrument (VFAI) captures the [place] or emergency medical services coordinator's functional needs, as they relate to the requirements for PCAFC. The assessment should only be used with Veterans or service members who have applied to or are participating in PCAFC and a consult has been placed for this assessment by Caregiver Support Program Staff. The author completing this assessment must be in compliance with all required Caregiver Support Program and VA trainings. Method of contact: Telehealth/ [facility] Video Connect Modality of Care: Video Telehealth Patient Contact Details: Best contact number for backup/emergency communication with patient: Patient Location/Surroundings During Visit: Patient location during visit: [place] [id number] Others present for visit with patient's consent: Name: Anel Lewis Patient confirms location is safe and private for visit. Telehealth Disclosure: Visit conducted by synchronous telehealth. Patient verbal consent obtained. Location/emergency number confirmed. Environment surveyed and all participants identified. Virtual conference room locked. VFAI: PART A EATING (1) Eating: Independent Defined as: The ability to use suitable utensils to bring food and/or liquid to the mouth and swallow food and/or liquid once the meal is placed before the person. Comments/additional information: n/a Reviewed CPRS records, did not find relevant documentation to support or refute reported information. GROOMING (2a) Oral hygiene: Independent Defined as: The ability to use suitable items to clean teeth. [Dentures (if applicable): the ability to insert and remove dentures into and from the mouth, and manage denture soaking and rinsing with use of equipment.] (2b) Wash upper body: Independent Defined as: The ability to wash, rinse, and dry the face, hands, chest, and arms while sitting in a chair or bed. Comments/additional information: [place] confirms that he has permanent teeth. confirms independence with upper body washing, rinsing and drying. Reviewed CPRS records, did not find relevant documentation to support or refute reported information. BATHING (3) Shower/bathe self: Supervision or touching assistance Defined as: The ability to bathe self, including washing, rinsing, and drying self. Does not include transferring in/out of tub/shower. Comments/additional information: [place] reports that he sits in front of sink/vanity and washes up every other day. [place] reports that he sits on shower chair in front of sink to wash up. reports that CG provides hands on assistance with washing, rinsing and drying his feet and back each time, reports thathe requires assistance because he is off balance with bending down and is afraid he may fall. 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 Reviewed [facility]S records, did not find relevant documentation to support or refute reported information. DRESSING AND UNDRESSING (4a) Upper body dressing: Independent Defined as: The ability to dress and undress above the waist, including fasteners (if applicable). (4b) Lower body dressing: Independent Defined as: The ability to dress and undress below the waist, including fasteners; does not include footwear. (4c) Putting on/taking off footwear: Supervision or touching assistance Defined as: The ability to put on and take off socks and shoes, or other footwear that is appropriate for safe mobility, including fasteners (if applicable). Comments/additional information: reports that he gets dressed while sitting on settee at end of bed. [place] confirms that as long as he is sitting he is able to dress/undress both his upper and lower body independently. [place] confirms ability to don/doff shoes and socks with touching assistance, CG reports that she assists to guide veterans feet into shoes and that she ties shoes each time. Reviewed CPRS records, did not find relevant documentation to support or refute reported information. TOILETING (5) Toileting hygiene: Independent Defined as: The ability to maintain perineal/menstrual hygiene and adjust clothes before and after voiding or having a bowel movement. If managing an ostomy, include wiping the opening but not managing equipment. Comments/additional information: n/a Reviewed [facility]S records, did not find relevant documentation to support or refute reported information. PROSTHETICS (6) Prosthetics (Use of Assistive Devices): Not applicable - does not use prosthetics or assistive devices Defined as: The ability to adjust special prosthetic or orthopedic appliances. The adjustment of appliances that any person (with or without a disability) would need assistance with should not be scored (for example, supports, belts, lacing at back, etc.). Comments/additional information: n/a MOBILITY (POSITIONING/TRANSFERS) (7a) Roll left and right: Independent Defined as: The ability to roll from lying on back to left and right side, and return to lying on back. (7b) Sit to lying: Independent Defined as: The ability to move from sitting on side of bed to lying flat on the bed. (7c) Lying to sitting on side of bed: Independent Defined as: The ability to move from lying on the back to sitting on the side of the bed with feet flat on the floor and with no back support. (7d) Sit to stand: Independent Defined as: The ability to come to a standing position from sitting in a chair, wheelchair, or on the side of the bed. (7e) Chair/[id number] transfer: Person does not usually do this activity Defined as: The ability to transfer to and from a bed to a chair (or wheelchair). (7f) Toilet transfer: Independent Defined as: The ability to get on and off a toilet or commode. Comments/additional information: confirms independence with bed mobility and repositionin. confirms ability to move from sit to lying and from lying to sitting position independently. [place] confirms ability to move from sit to stand positions independently with use of walker for support. reports thathe is able to get on/off toilet/commode independently with use of grab bars for support. Reviewed [facility]S records, did not find relevant documentation to support or refute reported information. MOBILITY (WALKING, MANUAL WHEELCHAIR, MOTORIZED WHEELCHAIR/SCOOTER) (8) Mobility: Person walks WALKING (9a) Walk 10 feet: Independent Defined as: Once standing, the ability to walk at least 10 feet in a room, corridor, or similar space. (9b) Walk 50 feet with two turns: Person does not usually do this activity Defined as: Once standing, the ability to walk at least 50 feet and make two turns. (9c) Walk 150 feet: Person does not usually do this activity Defined as: Once standing, the ability to walk at least 150 feet in a corridor or similar space. (9d) Walk 10 feet on uneven surfaces: Person does not usually do this activity Defined as: The ability to walk 10 feet on uneven or sloping surfaces (indoor or outdoor) such as turf or gravel. (9e) 1 step (curb): Supervision or touching assistance Defined as: The ability to go up and down a curb and/or up and down one step. (9f) 4 steps: Supervision or touching assistance Defined as: The ability to go up and down four steps with or without a rail. (9g) 12 steps: Supervision or touching assistance Defined as: The ability to go up and down 12 steps with or without a rail. (9h) Picking up object: Person does not usually do this activity Defined as: The ability to bend/stoop from a standing position to shredder picker a small object, such as a spoon, from the floor. (9i) Walk indoors: Supervision or touching assistance Defined as: The ability to walk from room to room, around furniture and other obstacles. (9j) Carry something in both hands: Person does not usually do this activity Defined as: The ability to carry something in both hands while walking indoors (i.e., several dishes, light laundry basket, tray with food). (9k) Walk for 15 minutes: Person does not usually do this activity Defined as: The ability to walk without stopping or resting (i.e., through a department store, supermarket). (9l) Walk across a street: Person does not usually do this activity Defined as: The ability to cross a street before light turns red. Comments/additional information: reports limitations with mobility related to bone spurs in right knee and right hip, arthritis, intermittent dizziness and off balance d/t pain in knee and hip. reports inability to stand for longer than 3 minutes. reports use of walker or cane. confirms ability to ambulate up to 10ft with use of walker independently. CG reports that when ammbulating throughout home requires supervision. lives in bi level home without basement. [place] reports that he is able to go up/down steps to second level of home with supervision/touching assistance. [place] reports that to get to second level of home there is 6 steps from main level then a landing then 6 more steps. [place] reports use of cane and rail with supervision to go down steps and reports use of cane and rail with touching assistance (back support) to go up steps. [place] reports supervision to go up/down a curb. [place] report s that with further distances such as doctors appts he is pushed in wheelchair. Reviewed [facility]S records, did not find relevant documentation to support or refute reported information. VFAI: PART B MEDICATION MANAGEMENT (1a) Does the person take any medication(s)? Yes (1b) Does the person need assistance with medication management? Needs medication set-up Comments/additional information: CG sets medication up in pill container. CG reports calling pharmacy to request pills. [place] confirms ability to self check blood glucose levels, before that he started checking blood glucose today. CG reports that veterans was managing medicationsbefore hospitalization. [place] reports that he is not thinking very clearly and there many chnges with medications during hospitalization and he thinks he will get things mixed up. Reviewed [facility]S records, did not find relevant documentation to support or refute reported information. SELF-PRESERVATION AND SUPERVISION (2) Does the person have the judgment and physical ability to cope, make appropriate decisions and take action in a changing environment or a potentially harmful situation? Independent (3) Is this person at risk of self-neglect? Yes Details: managing medications complex (4) Person has the following risk factors: Inability to manage medications or to seek medical treatment that may threaten health or safety (5) Is this person at risk of neglect, abuse, or exploitation by another person? No (6) What type of support does the person need in the home to remain safe, such as assistance or supervision with activities that require remembering, decision-making, or judgment? Sometimes the person can be left alone for most of the day. (7) What type of support does the person need away from home to remain safe, such as assistance or supervision with activities that require remembering, decision-making, or judgment? The person can go places alone as long as they are familiar places. Comments/additional information: and Primary Family Caregiver Applicant Anle Lewis both actively participated in [facility] appt while sitting side by side at table. [place] alert and oriented to person, place and time, CG providing minimal input. appearing calm and pleasant and responding to all questions appropriately. appearing clean with hair cut and wearing a long sleeve herron two tone shirt. Nando reports concerns with memory, reports that he is forgetful sometimes. States, I have a lack of confidence. CG reports that forgets dates. Reports that he forgets doctors appts, forgets dates. [place] reports having to write things down on calendar to keep up. CG reports that forgets to check off when a bill is paid. When presented with questions r/t potentially harmful situations, responded appropriately. RN asked what [place] would do if he was alone at home and he accidentally cut himself and saw the blood spurting out of his arm. Veterans response, I've got a notice I wear around my neck when I'm home and I can push the button(life alert), I'd try to put pressure on it. RN asked questions related to a call from someone claiming to be from with a refund for him and requesting his bank information to get him the refund. Veterans response, I would just not give them the information. confirms ability to stay home for most of the day and also confirms ability to go places alone. [place] reports that he does not drive. [place] reports that CG manages finances and bills. Reports that CG schedules, manages and keeps track of appts. Reports that CG grocery shops, cooks, cleans, does laundry and housework. CG drives to appts and sit in on appts. Vet does not drive. [place] reports recent hospitalization. [place] reports that he was admitted to [facility] on 11/07/2024 for symtoms r/t GERD. [place] reports that labs were drawn and findings showed that he was experiencing heart issues. reports that on 11/10/2024 he had cardiac cath procedure and 1 stent placed, reports he was discharged from hospital on 11/13. Vetreran confirms that surgical site is healed. reports that before he was admitted to hospital he was feeling weaker, reportsthat since stent was placed he is feeling like he is getting stronger each day. PROTECTION (8a) Delusions/Hallucinations: Person engages in markedly inappropriate behavior that affects his/her/their daily functioning and social interactions. Behavior characterized by a radical change in personality and a distorted or diminished sense of reality. No (9a) Agitation: Person has a tendency, or would without an intervention, to suddenly or quickly become upset or violent. No (10a) Impulsivity: Person has a propensity, or would without an intervention, for sudden or spontaneous decisions or actions. No (11a) Wandering: Person will, or would without an intervention, leave an area or group without telling others or depart from the supervision of others unexpectedly, resulting in increased vulnerability. No Comments/additional information: n/a INSTRUCTION (12) Person requires stand-by cueing, supervision, or step by step instructions from a caregiver in order to function in daily life: No (13) Person requires CONTINUOUS stand-by cueing, supervision, or step by step instructions from a caregiver in order to function in daily life: No Comments/additional information: n/a SELF-DIRECTION (14) Can this person identify their own needs? Yes (15) Can this person provide and/or arrange for their health and safety? Yes Comments/additional information: confirms that he is aware of who providers are and confirms that he has contact information. [place] confirms ability to place a call to providers to report concerns, issue sor schedule appt. /es/ NAYELI CORADO RN BSN REGISTERED NURSE Signed: 11/27/2024 14:35 Receipt Acknowledged By: 11/27/2024 16:40 /es/ BYRON Sultana, DIRECTOR OF ACCREDITATION Aircraft Quality Control Inspector, Caregiver Support Program NAYELI CORADO [facility]
--- OUTSIDE RECORDS SUMMARY | 2025-01-19 09:07 | XMS_ITS ---
Author Name [facility] [place] [facility] [place] Address [address] [place] [address] Care Team Providers Care Real Estate Consultant Name Role Phone DARA JANICE Primary Care Provider Unavail able Insurance Providers: [...] PART B Jan 04, 2004 PART B [id number] ESAZULEMAVILMA OCHOA PATIENT MEDICARE (WNR) MEDICARE (M) PART A Aug 05, 2002 PART A [id number] VILMA LEWIS OCHOA PATIENT Selected Encounter This section includes the information on record at [place] for the Encounter. Date/Time Encounter Type Encounter Description Reason Provider Source Oct 27, 2024 09:00 AM [facility] ASSMT/REASSESSM ENT CAREGIVER SUPPORT PROGRAM ICD-10-CM I48.0 Paroxysmal atrial fibrillation GEOR[place]IA BRADSHAW Encounter Template Text not used by [place] Assessments - Encounter Diagnoses This section includes the primary and secondary diagnoses documented for the Encounter. Date/Time Primary/Secondary Diagnosis Diagnosis Name Provider Source Oct 27, 2024 10:53 AM PRIMARY Paroxysmal atrial fibrillation DELICIA TRIMBLE [facility] Oct 27, 2024 10:53 AM SECONDARY Vertebrogenic low back pain DELICIA TRIMBLE [facility] Plan of Treatment: Future Appointments (+ 6 months) and Future Tests (+/- 45 days) The Plan of Treatment section includes future care activities for the patient from all [place] [facility]. This section includes future appointments and future orders which are active, pending or scheduled. Future Appointments This section includes appointments that were scheduled to occur 6 months from the date of the Encounter, up to a maximum of 20 appointments. The data comes from all [place] treatment facilities. Appointment Date/Time Appointment Type Appointme nt Facility Name Nov 27, 2024 01:00 PM AMBULATORY - MEDICINE [facility] Feb 13, 2025 02:00 PM AMBULATORY - MEDICINE [facility] Social History: Smoking Status (Most current) and Tobacco Use (All prior to encounter date) This section includes the most current, and the historical, smoking and tobacco- related health factors from the [place] facility where the Encounter took place. Current Smoking Status This section includes the most current smoking, or tobacco-related health factor, from the [place] facility where the Encounter took place. Date/Time Current Smoking Status Comment Joy ity Aug 13, 2024 04:00 PM VA-TOBACCO NEVER USED [facility] Tobacco Use History This section includes a history of the smoking, or tobacco-related health factors, that were collected on or before the date of the Encounter. The data comes from the [place] facility where the Encounter took place. Date/Time Smoking Status/Tobacco Use Comment F acility May 04, 2023 03:40 PM VA-TOBACCO NEVER USED [facility] March 20, 2022 04:29 PM VA-TOBACCO NEVER USED [facility] March 11, 2021 01:07 PM VA-TOBACCO NEVER USED [facility] Encounter Notes: All associated encounter notes This section contains the clinical notes associated to the Encounter. Date/Time Encounter Note(s) Provider Source Oct 27, 2024 06:19 PM ADDENDUM: LOCAL TITLE: Addendum STANDARD TITLE: ADDENDUM DATE OF NOTE: OCT 27, 2024@18:19 ENTRY DATE: OCT 27, 2024@18:19:14 AUTHOR: BERRY TRIMBLE COSIGNER: GEOR[place] BRADSHAW URGENCY: STATUS: COMPLETED Primary Family Caregiver Applicant reports wanting to learn more about the [place] Alert device for [place] due to his falling. Please follow up, thank you. /es/ BERRY TRIMBLE Advanced Analytics Associate, Caregiver Support Program Signed: 10/27/2024 18:20 /es/ [place] BRADSHAW Advanced Analytics Associate, Caregiver Support Program Cosigned: 10/30/2024 08:43 Receipt Acknowledged By: 10/31/2024 09:41 /es/ [facility] NURSE PRACTITIONER 10/31/2024 16:20 /es/ YUVAL DAS, RN, BSN Registered Nurse --- Original Document --- 10/27/24 [facility] ASSESSMENT: Program of Comprehensive Assistance for Family Caregivers Assessment The Program of Comprehensive Assistance for Family Caregivers (PCAFC) provides services and additional benefits to designated and approved Family Caregivers of eligible Veterans who incurred or aggravated a serious injury in the line of duty and is for individuals in need of personal care services for a minimum of six continuous months based on any one of the following: (i) An inability to perform an activity of daily living; or (ii) A need for supervision, protection, or instruction. In addition to other eligibility requirements, the PCAFC must also be found to be in the best interest of the individual in order to participate in the program. Date of assessment: 10/27/2024 Time spent in session: 1 hour and 10 minutes Identified the using full name and the following other menjivar identifier(s): Full name: ROSEMARY LEWIS Full SSN: [id number] Date of : Aug Diagnosis: Paroxysmal atrial fibrillation (SCT 932984581) - Paroxysmal atrial fibrillation (ICD-10-CM I48.0) (Primary) The interview was conducted using the telephone. Reviewed limits of confidentiality with the [place] and caregiver/applicant(s). Brief description of why the and caregiver/applicant(s) are applying to or participating in the program: reports he has trouble getting around, uses a cane and rollator. He states he doesn't do well on stairs, and doesn't cook or do laundry. Primary Family Caregiver Applicant reports is not able to walk well or stand for longer periods ([place] states he can't stand for more than 3 minutes). CURRENT LIVING SITUATION The following live in the 's household: Name: Anel Lewis Age: 82 Relationship: /Primary Family Caregiver Applicant Special needs: The does not provide care for anyone in the household. The [place] does not participate in care of the home or property. The [place] does not drive independently. When did last drive: [place] reports last driving January 2024. Additional information: [place] reports he was driving some before January 23 (surgery on this date) and has not driven since then. EMPLOYMENT HISTORY The is not currently employed. When was [place] last employed? [place] reports he last worked over 20 years ago, when he was 64. EDUCATION HISTORY The has barriers to education. Details of barriers to education: reports his age and physical health as barriers. The [place] is not attending school. The [place] is or wishes to pursue enrollment: No SOCIAL HISTORY What does the [place]'s typical day look like? reports they wake up and eat breakfast. He states he walks around downstairs a bit, watches TV, and may walk outside in his yard briefly. He did not expand on a typical day beyond this. What does the [place] do for leisure/relaxation? states he will play Solitaire or chess on the computer. CURRENT PROVIDERS The [place] is currently receiving [place] Primary Care or [facility] Care [facility] Primary Care. Provider's name: TITA Diamond The [place] is not currently participating in other [place] programs/services. The is not currently receiving [place] Mental Health or Substance Use treatment. The is not currently receiving care outside of [place]. MEDICAL HISTORY Significant past medical history/treatment: [place] reports the following significant past medical history/treatment, but is not limited to: -Surgery January 23 small intestine and small bowel resection, -Paroxysmal atrial fibrillation, -Type 2 diabetes, -Gout (takes medication for this), -Right hip: had a Cortisone injection and this did not help; has a bone spur, -4 falls: most recent about 3 months ago, fell in the bathroom and hit his head and had to go to the ER; a couple of falls during the summer in the yard, and had one fall down the steps, -Gastric ulcer, -Bone spur in right shoulder (rotator cuff injury) and won't be able to get a replacement due to his age. Any unaddressed medical concerns: Primary Family Caregiver Applicant reports wanting to learn more about the [place] Alert for [place] due to his falling. The [place] has chronic pain. Pain is primarily located: reports pain from his gastric ulcer, shoulder, and hip (if he walks too much). Expectations for treatment: reports the physical therapy exercises are to strengthen his hip since he cannot have a replacement. Impact of pain on quality of life: reports there are things he can't do anymore. He states he would like to walk more or go to plays, but can't. Current pharmacological treatments for pain: [place] reports he was offered Tramadol; however, he did not want to take this. He states he was offered a different opioid but declined this too. Compliance with pain medications: N/A Nonpharmacological treatments for pain: reports he uses a heating pad a lot and ice. The has a typical exercise/activity routine. Details: reports doing the bridge and clam exercises from physical therapy; these are both challenging for him. He states doing them daily. The [place] reports concerns regarding memory and/or cognition. How does this impact [place]'s daily activities? [place] reports having some memory loss and tries to help maintain his memory by playing chess. [place] denies other impacts. The has not had formal testing related to memory/cognition. MENTAL HEALTH/SUBSTANCE USE HISTORY Significant mental health/substance use history/treatment: [place] denies any significant mental health/substance use history/treatment. PHQ-2 A PHQ-2 screen was performed. The score was 0 which is a negative screen for depression. Over the past two weeks, how often have you been bothered by the following problems? 1. Little interest or pleasure in doing things Not at all 2. Feeling down, depressed, or hopeless Not at all [place] Suicide Severity Rating Scale (C-SSRS) screener 1. Over the past month, have you wished you were or wished you could go to sleep and not wake up? No 2. Over the past month, have you had any actual thoughts of killing yourself? No 3. Over the past month, have you been thinking about how you might do this? Response not required due to responses to other questions. 4. Over the past month, have you had these thoughts and had some intention of acting on them? Response not required due to responses to other questions. 5. Over the past month, have you started to work out or worked out the details of how to kill yourself? Response not required due to responses to other questions. 6. If yes, at any time in the past month did you intend to carry out this plan? Response not required due to responses to other questions. 7. In your lifetime, have you ever done anything, started to do anything, or prepared to do anything to end your life (for example, collected pills, obtained a gun, gave away valuables, went to the roof but didn't jump)? No 8. If YES, was this within the past 3 months? Response not required due to responses to other questions. The reports that there are no current or past concerns regarding IPV domestic violence or safety. The [place] reports currently feeling safe in their home. Current alcohol use: Not at all Current substance use: Not At All Current tobacco use: Not at all has access to opioids: No Other addictive behaviors (i.e. gambling, sex, dom, etc.): Not at all The [place] is not currently receiving [place] Alcohol/Substance Abuse treatment. The is not interested in a referral for [place] Alcohol/Substance Abuse treatment at this time. has access to firearms: Yes Firearm safety discussed with [place]: Yes Gunlock offered to [place]: Yes - [place] requests 1 gunlock be mailed to him at address in chart. The [place] was offered information on the 's Crisis Line, including contact number: Dial [phone] then Press 1 for Veterans and/or Text Service [phone] LEGAL/FINANCIAL HISTORY The [place] does not report any current legal concerns. The does not report any current personal financial concerns. CURRENT GOALS [place]'s stated overall functional goals: reports he would like to be able to go to the [employer] in [place], [place]. How does the report that the caregiver supports the 's overall goals? [place] reports she does all the cooking, cleaning, laundry, driving, and attending his doctors appointments. He states, without her I would have to be in a fci. SUPPORT SERVICES The is not currently receiving home care services. Support services currently used:* None Discussion about [place] Personal Care Services and [facility] enrollment/participation: Not applicable = CAREGIVER INPUT SECTION = Caregiver's understanding of the Program of Comprehensive Assistance for caregiver/applicant(s) and why they decided to apply: Primary Family Caregiver Applicant reports [place] is a fall risk and is unable to walk easily by himself. Caregiver's description of 's self-care: The following responses are per Primary Family Caregiver Applicant report: -Feeding: She states [place] is independent with feeding. -Dressing: She states she has to assist [place] with putting on shirts depending on his pain level in right shoulder. -Grooming: She states [place] is independent with grooming. -Bathing: She states is independent with bathing. -Toileting: She states [place] is independent with toileting. -Mobility/Transfers: She states when they go somewhere she has to put the rollator in the trunk and get it for him and bringing it to him. She states in the house, he uses a cane. Caregiver's description of how the [place] has responded to their self-care challenges and what is/is not working: Primary Family Caregiver Applicant reports it's been hard because [place] was very active and this has been a hard adjustment for him. Type of assistance that the caregiver provides to address 's needs in completing activities of daily living: Please see above. Type of assistance caregiver provides due to neurological, cognitive or mental health needs: Primary Family Caregiver Applicant reports may forget to take his medications, this isn't often. She denies other types of assistance with neurological, cognitive or mental health needs. Caregiver's description of how reliability manager and meal planning are performed, who performs the duties, and any established routines: Primary Family Caregiver Applicant reports she is responsible for all reliability manager and meal planning/preparing. [place] needs assistance with the reliability manager and/or family activities that he completes. Details: Primary Family Caregiver Applicant reports she would have to bring the rollator for him and transport him to any of the places he needed to go. The [place] does not drive independently. The caregiver attends the [place]'s medical and/or mental health appointments with him. Details: Primary Family Caregiver Applicant reports she attends 's medical appointments with him and provides transportation. Caregiver's knowledge and understanding of the treatment recommendations for the [place]: Primary Family Caregiver Applicant reports having a good knowledge and understanding of [place]'s treatment recommendations. The caregiver reports concerns for the [place]'s safety. Caregiver's description of strategies used to address problems [place] has in maintaining safety as well as the type of assistance the caregiver provides: Primary Family Caregiver Applicant reports concern of [place] falling. She states his falls are more random with frequency and location. She states told her he was in the garage this past week and he was trying to move a chair (similar to a recliner) and almost fell doing this. Type of preparations the caregiver needs to complete for the [place] in their absence: Primary Family Caregiver Applicant reports making sure [place] has food within reach and he is on the lower level of the house so he doesn't have to go on the stairs unsupervised. The Caregiver assists the with the following additional concerns and/or additional care needs: Primary Family Caregiver Applicant reports caring for [place]'s feet due to his diabetes. SUMMARY OF VISIT: Counseling Center Manager met with [place] and Primary Family Caregiver Applicant on this date for assessment for PCAFC program; and Primary Family Caregiver Applicant were well involved in this assessment. Primary Family Caregiver Applicant is identified as 's spouse with whom he lives. [place] is 90% Service Connected and identified chronic issues with his atrial fibrillation and pain for which he reportedly requires assistance from Primary Family Caregiver Applicant with dressing and mobility/transfers. Primary Family Caregiver Applicant reportedly completes majority of IADL tasks for [place]. Primary Family Caregiver Applicant reports physical therapy did not heal [place] fully and states providers won't do a hip replacement due to his age and atrial fibrillation. Discussed ability to submit non-VA records as part of application process and highlighted importance of recent/relevant and the timeline for record submission. At this time, will be submitting outside medical records from his Physical Therapy; reviewed goal to submit these records within 30 days of VARD. Counseling Center Manager provided psychoeducation regarding [facility] program benefits, eligibility criteria, application steps and option for Veterans to submit outside VA medical records for inclusion in this application. Both [place] and Primary Family Caregiver Applicant verbalized understanding and denied any further questions or needs at this time. Education provided on the [place] Alert. CSP staff will coordinate the following: Functional Assessment Instrument Caregiver/applicant(s) assessment /cristiane/ BERRY TRIMBLE Advanced Analytics Associate, Caregiver Support Program Signed: 10/27/2024 18:19 /es/ [place] BRADSHAW Advanced Analytics Associate, Caregiver Support Program Cosigned: 10/30/2024 08:58 10/30/2024 ADDENDUM STATUS: COMPLETED This BARROW WORKER clinical show design supervisor reviewed this documentation and concurs with the information and impressions contained in this note. The services provided by the [facility] are reviewed during weekly [id number] supervision. The clinical supervision meets, or exceeds, supervision amounts required by the standards of both the National Association of Social Work Boards Accreditation and the [place] Committee for Social Workers. /cristiane/ [place] BRADSHAW Advanced Analytics Associate, Caregiver Support Program Signed: 10/30/2024 08:58 BERRY TRIMBLE [facility] Oct 27, 2024 12:33 PM TELEHEALTH NOTE: LOCAL TITLE: V15 [facility] DIGITAL DIVIDE SET-UP REVIEW STANDARD TITLE: TELEHEALTH NOTE DATE OF NOTE: OCT 27, 2024@12:33 ENTRY DATE: OCT 27, 2024@12:33:41 AUTHOR: BERRY TRIMBLE EXP COSIGNER: URGENCY: STATUS: COMPLETED Patient is interested in [facility] Health Care appointments. [facility] requirements have been communicated to the [place]. The [place] confirms understanding of those requirements and indicates the following [facility] needs: [place] confirms they have their own VVC capable equipment and/or request a 2nd video test call. The Provider and [place] agree to the use of Telehealth and the confirms they have their own smart device (smart phone, tablet, laptop, or computer) with a camera AND audio. [place] has been informed to call the Office of Connected Care Health Desk([facility]) at [phone] Option 1 for a test call and that a [place] staff member will also call. 'S RIGHT TO DECLINE STATEMENT [place] understands they have the right to decline the use of Telehealth Technology at any time without adverse affects on their continued access to healthcare. /cristiane/ BERRY TRIMBLE Advanced Analytics Associate, Caregiver Support Program Signed: 10/27/2024 12:46 BERRY TRIMBLE [facility] Oct 27, 2024 09:09 AM CAREGIVER CERTIFIC ATE: LOCAL TITLE: [facility] PCA ASSESSMENT STANDARD TITLE: CAREGIVER CERTIFICATE DATE OF NOTE: OCT 27, 2024@09:09 ENTRY DATE: OCT 27, 2024@09:10:35 AUTHOR: BERRY TRIMBLE EXP COSIGNER: [place] BRADSHAW URGENCY: STATUS: COMPLETED [facility] ASSESSMENT Has ADDENDA Program of Comprehensive Assistance for Family Caregivers Assessment The Program of Comprehensive Assistance for Family Caregivers (PCAFC) provides services and additional benefits to designated and approved Family Caregivers of eligible Veterans who incurred or aggravated a serious injury in the line of duty and is for individuals in need of personal care services for a minimum of six continuous months based on any one of the following: (i) An inability to perform an activity of daily living; or (ii) A need for supervision, protection, or instruction. In addition to other eligibility requirements, the PCAFC must also be found to be in the best interest of the individual in order to participate in the program. Date of assessment: 10/27/2024 Time spent in session: 1 hour and 10 minutes Identified the using full name and the following other menjivar identifier(s): Full name: ROSEMARY LEWIS Full SSN: [id number] Date of : Aug Diagnosis: Paroxysmal atrial fibrillation ([facility] [id number]) - Paroxysmal atrial fibrillation (ICD-10-CM I48.0) (Primary) The interview was conducted using the telephone. Reviewed limits of confidentiality with the [place] and caregiver/applicant(s). Brief description of why the and caregiver/applicant(s) are applying to or participating in the program: reports he has trouble getting around, uses a cane and rollator. He states he doesn't do well on stairs, and doesn't cook or do laundry. Primary Family Caregiver Applicant reports [place] is not able to walk well or stand for longer periods ([place] states he can't stand for more than 3 minutes). CURRENT LIVING SITUATION The following live in the 's household: Name: Anel Lewis Age: 82 Relationship: /Primary Family Caregiver Applicant Special needs: The does not provide care for anyone in the household. The [place] does not participate in care of the home or property. The does not drive independently. When did last drive: [place] reports last driving January 2024. Additional information: reports he was driving some before January 23 (surgery on this date) and has not driven since then. EMPLOYMENT HISTORY The is not currently employed. When was [place] last employed? [place] reports he last worked over 20 years ago, when he was 64. EDUCATION HISTORY The has barriers to education. Details of barriers to education: reports his age and physical health as barriers. The is not attending school. The is or wishes to pursue enrollment: No SOCIAL HISTORY What does the 's typical day look like? reports they wake up and eat breakfast. He states he walks around downstairs a bit, watches TV, and may walk outside in his yard briefly. He did not expand on a typical day beyond this. What does the [place] do for leisure/relaxation? [place] states he will play Solitaire or chess on the computer. CURRENT PROVIDERS The is currently receiving [facility] Primary Care or [facility] Care in the Community Primary Care. Provider's name: TITA Diamond The [place] is not currently participating in other VA programs/services. The is not currently receiving VA Mental Health or Substance Use treatment. The [place] is not currently receiving care outside of [place]. MEDICAL HISTORY Significant past medical history/treatment: [place] reports the following significant past medical history/treatment, but is not limited to: -Surgery January 23 small intestine and small bowel resection, -Paroxysmal atrial fibrillation, -Type 2 diabetes, -Gout (takes medication for this), -Right hip: had a Cortisone injection and this did not help; has a bone spur, -4 falls: most recent about 3 months ago, fell in the bathroom and hit his head and had to go to the ER; a couple of falls during the summer in the yard, and had one fall down the steps, -Gastric ulcer, -Bone spur in right shoulder (rotator cuff injury) and won't be able to get a replacement due to his age. Any unaddressed medical concerns: Primary Family Caregiver Applicant reports wanting to learn more about the [place] Alert for [place] due to his falling. The [place] has chronic pain. Pain is primarily located: reports pain from his gastric ulcer, shoulder, and hip (if he walks too much). Expectations for treatment: [place] reports the physical therapy exercises are to strengthen his hip since he cannot have a replacement. Impact of pain on quality of life: reports there are things he can't do anymore. He states he would like to walk more or go to plays, but can't. Current pharmacological treatments for pain: [place] reports he was offered Tramadol; however, he did not want to take this. He states he was offered a different opioid but declined this too. Compliance with pain medications: N/A Nonpharmacological treatments for pain: [place] reports he uses a heating pad a lot and ice. The [place] has a typical exercise/activity routine. Details: [place] reports doing the bridge and clam exercises from physical therapy; these are both challenging for him. He states doing them daily. The reports concerns regarding memory and/or cognition. How does this impact [place]'s daily activities? reports having some memory loss and tries to help maintain his memory by playing chess. [place] denies other impacts. The [place] has not had formal testing related to memory/cognition. MENTAL HEALTH/SUBSTANCE USE HISTORY Significant mental health/substance use history/treatment: denies any significant mental health/substance use history/treatment. PHQ-2 A PHQ-2 screen was performed. The score was 0 which is a negative screen for depression. Over the past two weeks, how often have you been bothered by the following problems? 1. Little interest or pleasure in doing things Not at all 2. Feeling down, depressed, or hopeless Not at all [place] Suicide Severity Rating Scale (C-SSRS) screener 1. Over the past month, have you wished you were or wished you could go to sleep and not wake up? No 2. Over the past month, have you had any actual thoughts of killing yourself? No 3. Over the past month, have you been thinking about how you might do this? Response not required due to responses to other questions. 4. Over the past month, have you had these thoughts and had some intention of acting on them? Response not required due to responses to other questions. 5. Over the past month, have you started to work out or worked out the details of how to kill yourself? Response not required due to responses to other questions. 6. If yes, at any time in the past month did you intend to carry out this plan? Response not required due to responses to other questions. 7. In your lifetime, have you ever done anything, started to do anything, or prepared to do anything to end your life (for example, collected pills, obtained a gun, gave away valuables, went to the roof but didn't jump)? No 8. If YES, was this within the past 3 months? Response not required due to responses to other questions. The [place] reports that there are no current or past concerns regarding IPV domestic violence or safety. The reports currently feeling safe in their home. Current alcohol use: Not at all Current substance use: Not At All Current tobacco use: Not at all [place] has access to opioids: No Other addictive behaviors (i.e. gambling, sex, dom, etc.): Not at all The [place] is not currently receiving [place] Alcohol/Substance Abuse treatment. The [place] is not interested in a referral for [facility] Alcohol[facility] Abuse treatment at this time. has access to firearms: Yes Firearm safety discussed with [place]: Yes Gunlock offered to [place]: Yes - [place] requests 1 gunlock be mailed to him at address in chart. The was offered information on the [place]'s Crisis Line, including contact number: [address] for Veterans and/or Text Service [phone] LEGAL/FINANCIAL HISTORY The [place] does not report any current legal concerns. The [place] does not report any current personal financial concerns. CURRENT GOALS 's stated overall functional goals: [place] reports he would like to be able to go to the [employer] in [place], [place]. How does the report that the caregiver supports the [place]'s overall goals? [place] reports she does all the cooking, cleaning, laundry, driving, and attending his doctors appointments. He states, without her I would have to be in a fci. SUPPORT SERVICES The [place] is not currently receiving home care services. Support services currently used:* None Discussion about [place] Personal Care Services and [facility] enrollment/participation: Not applicable = CAREGIVER INPUT SECTION = Caregiver's understanding of the Program of Comprehensive Assistance for caregiver/applicant(s) and why they decided to apply: Primary Family Caregiver Applicant reports is a fall risk and is unable to walk easily by himself. Caregiver's description of 's self-care: The following responses are per Primary Family Caregiver Applicant report: -Feeding: She states [place] is independent with feeding. -Dressing: She states she has to assist [place] with putting on shirts depending on his pain level in right shoulder. -Grooming: She states [place] is independent with grooming. -Bathing: She states [place] is independent with bathing. -Toileting: She states [place] is independent with toileting. -Mobility/Transfers: She states when they go somewhere she has to put the rollator in the trunk and get it for him and bringing it to him. She states in the house, he uses a cane. Caregiver's description of how the has responded to their self-care challenges and what is/is not working: Primary Family Caregiver Applicant reports it's been hard because [place] was very active and this has been a hard adjustment for him. Type of assistance that the caregiver provides to address [place]'s needs in completing activities of daily living: Please see above. Type of assistance caregiver provides due to neurological, cognitive or mental health needs: Primary Family Caregiver Applicant reports [place] may forget to take his medications, this isn't often. She denies other types of assistance with neurological, cognitive or mental health needs. Caregiver's description of how reliability manager and meal planning are performed, who performs the duties, and any established routines: Primary Family Caregiver Applicant reports she is responsible for all reliability manager and meal planning/preparing. [place] needs assistance with the reliability manager and/or family activities that he completes. Details: Primary Family Caregiver Applicant reports she would have to bring the rollator for him and transport him to any of the places he needed to go. The [place] does not drive independently. The caregiver attends the 's medical and/or mental health appointments with him. Details: Primary Family Caregiver Applicant reports she attends [place]'s medical appointments with him and provides transportation. Caregiver's knowledge and understanding of the treatment recommendations for the : Primary Family Caregiver Applicant reports having a good knowledge and understanding of 's treatment recommendations. The caregiver reports concerns for the [place]'s safety. Caregiver's description of strategies used to address problems has in maintaining safety as well as the type of assistance the caregiver provides: Primary Family Caregiver Applicant reports concern of [place] falling. She states his falls are more random with frequency and location. She states told her he was in the garage this past week and he was trying to move a chair (similar to a recliner) and almost fell doing this. Type of preparations the caregiver needs to complete for the in their absence: Primary Family Caregiver Applicant reports making sure has food within reach and he is on the lower level of the house so he doesn't have to go on the stairs unsupervised. The Caregiver assists the [place] with the following additional concerns and/or additional care needs: Primary Family Caregiver Applicant reports caring for 's feet due to his diabetes. SUMMARY OF VISIT: Counseling Center Manager met with [place] and Primary Family Caregiver Applicant on this date for assessment for [employer] program; [place] and Primary Family Caregiver Applicant were well involved in this assessment. Primary Family Caregiver Applicant is identified as 's spouse with whom he lives. [place] is 90% Service Connected and identified chronic issues with his atrial fibrillation and pain for which he reportedly requires assistance from Primary Family Caregiver Applicant with dressing and mobility/transfers. Primary Family Caregiver Applicant reportedly completes majority of IADL tasks for [place]. Primary Family Caregiver Applicant reports physical therapy did not heal [place] fully and states providers won't do a hip replacement due to his age and atrial fibrillation. Discussed ability to submit non-VA records as part of application process and highlighted importance of recent/relevant and the timeline for record submission. At this time, will be submitting outside medical records from his Physical Therapy; reviewed goal to submit these records within 30 days of VARD. Counseling Center Manager provided psychoeducation regarding [employer] program benefits, eligibility criteria, application steps and option for Veterans to submit outside VA medical records for inclusion in this application. Both and Primary Family Caregiver Applicant verbalized understanding and denied any further questions or needs at this time. Education provided on the [place] Alert. [facility] staff will coordinate the following: Functional Assessment Instrument Caregiver/applicant(s) assessment /cristiane/ BERRY Paniagua, Caregiver Support Program Signed: 10/27/2024 18:19 /cristiane/ GEORGIA BRADSHAW [employer] Associate, Caregiver Support Program Cosigned: 10/30/2024 08:58 10/27/2024 ADDENDUM STATUS: COMPLETED Primary Family Caregiver Applicant reports wanting to learn more about the [place] Alert device for [place] due to his falling. Please follow up, thank you. /aspen Paniagua, Caregiver Support Program Signed: 10/27/2024 18:20 /aspen BRADSHAW Advanced [employer] Associate, Caregiver Support Program Cosigned: 10/30/2024 08:43 Receipt Acknowledged By: * AWAITING SIGNATURE * JANICE DIAMOND * AWAITING SIGNATURE * YUVAL DAS 10/30/2024 ADDENDUM STATUS: COMPLETED This [facility] clinical show design supervisor reviewed this documentation and concurs with the information and impressions contained in this note. The services provided by the [facility] are reviewed during weekly [id number] supervision. The clinical supervision meets, or exceeds, supervision amounts required by the standards of both the National Association of Social Work Boards Accreditation and the [place] Committee for Social Workers. /aspen BRADSHAW Advanced [employer] Associate, Caregiver Support Program Signed: 10/30/2024 08:58 BERRY TRIMBLE [facility]
--- OUTSIDE RECORDS SUMMARY | 2025-01-19 09:07 | XMS_ITS | Referral Summary ---
Author Organization [facility] [address] [place] [address] [address] [place] [address] Care Team Providers Care Cigarette Paper Tester Name Role Phone Phoebe Jaquez NP Primary Care Provider [phone] Encounters Date Type Department Care Team Description 11/14/[address] [facility] Medical Group Cardiology [address] [facility] [address] [place] [address] Juanito Short MD 11/13/[address] [facility] Medical [facility] Cardiology [address] [place] [address] [address] [place] [address] Juanito Short MD 11/12/2024 Orders Only [facility] Cardiology [address] [place] [address] [address] [place] [address] Juanito Short MD from Last 3 Months Social History Tobacco Use Types Packs/Day Years Used Date Smoking Tobacco: Never Assessed Sex and Gender Information Value Date Recorded Sex Assigned at Not on file Legal Sex Male 1:53 AM STONECUTTER ASSISTANT Gender Identity Not on file Sexual Orientation Not on file Plan of Treatment Not on file Procedures Procedure Name Priority Date/Time Associated Diagnosis Comments CARDIOLOGY DOCUMENT SCAN Routine 11/13/2024 1:10 PM STONECUTTER ASSISTANT CARDIOLOGY DOCUMENT SCAN Routine 11/11/2024 12:08 PM STONECUTTER ASSISTANT CARDIOLOGY DOCUMENT SCAN Routine 11/10/2024 12:01 PM STONECUTTER ASSISTANT CARDIOLOGY DOCUMENT SCAN Routine 11/10/2024 10:45 AM STONECUTTER ASSISTANT EGFR Routine 10/17/2024 8:30 AM STONECUTTER ASSISTANT Diabetes mellitus without complication (HCC) HEMOGLOBIN A1C Routine 10/17/2024 8:30 AM STONECUTTER ASSISTANT Diabetes mellitus without complication (HCC) LIPID PANEL Routine 10/17/2024 8:30 AM STONECUTTER ASSISTANT Diabetes mellitus without complication (HCC) ALBUMIN CREATININE RATIO, URINE Routine 10/17/2024 8:30 AM STONECUTTER ASSISTANT Diabetes mellitus without complication (HCC) from Last 3 Months or Most Recently Relevant to Health Maintenance Results * Cardiology Document Scan (11/13/2024 1:10 PM STONECUTTER ASSISTANT) Anatomical Region Laterality Modality Other Juanito Short MD [facility] CARDIAC SERVICES PROCEDURES F inal Result * Cardiology Document Scan (11/11/2024 12:08 PM STONECUTTER ASSISTANT) Anatomical Region Laterality Modality Other Nathaniel Cade MD [facility] CARDIAC SERVICES PRO CEDURES Final Result * Cardiology Document Scan (11/10/2024 12:01 PM STONECUTTER ASSISTANT) Anatomical Region Laterality Modality Other Juanito Short MD CV CARDIAC SERVICES PROCEDURES F inal Result * Cardiology Document Scan (11/10/2024 10:45 AM STONECUTTER ASSISTANT) Anatomical Region Laterality Modality Other Result [facility] Juanito Short MD CV CARDIAC SERVICES PROCEDURES F inal Result * eGFR (10/17/2024 8:30 AM STONECUTTER ASSISTANT) eGFR 65 >=60 mL/min/1. 73 m2 Comment: Interpretive Data Reference Interval Normal >/= 90 mL/min/1.73m2 Mildly decreased* 60 - 89 mL/min/1.73m2 Mildly to moderately decreased 45 - 59 mL/min/1.73m2 Moderately to severely decreased 30 - 44 mL/min/1.73m2 Severely decreased 15 - 29 mL/min/1.73m2 Kidney Failure < 15 mL/min/1.73m2 *Relative to young adult level Estimated glomerular filtration rate is determined by the 2020 CKD-EPI equation recommended by the National Kidney Foundation (A Unifying Approach to GFR Estimation: Recommendations of the NKF-ASK Task Force on Reassessing the Inclusion of Race in Diagnosing Kidney Disease, JASN 2020). The CKD-EPI equation should not be used for patients with unstable renal function and has not been validated in children and those over 70. Current interpretive data was last reviewed 2021. Blood 10/17/2024 8:30 AM STONECUTTER ASSISTANT 10/17/2024 8:17 PM STONECUTTER ASSISTANT Jossie Velasquez MD LAB BLOOD ORDERABLES Final Result Performing Organization Address [facility] de Phone Number [facility] [address] Department [place] [address] * Albumin Creatinine Ratio, Urine (10/17/2024 8:30 AM STONECUTTER ASSISTANT) Albumin Ur <12.0 mg/L Comment: Interpretive Data No reference range established. Current interpretive data was last revised 2019. Creatinine Ur 107.9 mg/dL [facility] Comment: Interpretive Data No reference range established. Current interpretive data was last revised 2019. Albumin Creatinine Ratio, Ur <11 1 - 29 mg/g [facility] Urine (Urine, Clean Catch) 10/17/2024 8:30 AM STONECUTTER ASSISTANT 10/17/2024 8:01 PM STONECUTTER ASSISTANT Narrative [facility] - 10/17/2024 8:54 PM STONECUTTER ASSISTANT FAX RESULTS [phone] JACINTO VELASQUEZ Jossie Velasquez MD LAB URINE ORDERABLES Final Result Performing Organization Address [facility] de Phone Number [facility] [address] [facility] [place] [address] * (ABNORMAL) Hemoglobin A1c (10/17/2024 8:30 AM STONECUTTER ASSISTANT) Hgb A1C 6.7(H) 4.0 - 5.6 % Estimated Average Glucose 146 mg/dL [facility] Comment: The ADA recommends reporting an estimated Average Glucose (eAG) with all Hemoglobin A1c results using the equation derived from a study of 507 normal and diabetic adults. Minority populations were underrepresented and children were not included. (Diabetes Care 31:6921-3743, 2008). The eAG is not equivalent to a fasting glucose. Blood Venous blood specimen / Unknown 10/17/2024 8:30 AM STONECUTTER ASSISTANT 10/17/2024 8:01 PM STONECUTTER ASSISTANT Narrative [facility] - 10/17/2024 8:35 PM STONECUTTER ASSISTANT FAX RESULTS [phone] JACINTO VELASQUEZ Jossie Velasquez MD LAB BLOOD ORDERABLES Final Result [facility] [address] Department [place] [address] * Lipid panel (10/17/2024 8:30 AM STONECUTTER ASSISTANT) Cholesterol 155 30 - 199 mg/dL Comment: Interpretive Data Ages < or = 19 years Acceptable: <170 mg/dL Borderline high: 170-199 mg/dL High: >or= 200 mg/dL Ages > or = 20 years Desirable: <200 mg/dL Borderline high: 200-239 mg/dL High: >or= 240 mg/dL Literature References: 1. Expert Panel on Integrated Guidelines for Cardiovascular Health and Risk Reduction in Children and Adolescents. Pediatrics 2011;128:S213 2. NCEP Expert Panel. Circulation 2004;110:227 Current Interpretive Data was last revised on 2018. Triglycerides 63 <=149 mg/dL [facility] Comment: Interpretive Data Ages < or = 9 years Acceptable: <75 mg/dL Borderline high: 75-99 mg/dL High: >or= 100 mg/dL Ages 10 to 20 years Acceptable: <90 mg/dL Borderline high: 90-129 mg/dL High: >or= 130 mg/dL Ages > or = 20 years Desirable: <150 mg/dL Borderline high: 150-199 mg/dL High: 200-499 mg/dL Very high: >or= 499 mg/dL Literature References: 1. Expert Panel on Integrated Guidelines for Cardiovascular Health and Risk Reduction in Children and Adolescents. Pediatrics 2011;128:S213 2. NCEP Expert Panel. Circulation 2004;110:227 Current Interpretive Data was last revised on 2018. HDL 66 >=40 mg/dL [facility] Comment: Interpretive Data Ages < or = 19 years Acceptable: >45 mg/dL Borderline low: 40-45 mg/dL Low: <40 mg/dL Ages > or = 20 years Desirable: >or= 60 mg/dL Low: <40 mg/dL Literature References: 1. Expert Panel on Integrated Guidelines for Cardiovascular Health and Risk Reduction in Children and Adolescents. Pediatrics 2011;128:S213 2. NCEP Expert Panel. Circulation 2004;110:227 Current Interpretive Data was last revised on 2018. LDL, calculated 76 <=129 mg/dL [facility] Comment: Interpretive Data Ages < or = 19 years Acceptable: <110 mg/dL Borderline high: 110-129 mg/dL High: >or= 130 mg/dL Ages > or = 20 years Optimal: <100 mg/dL Near optimal: 100-129 mg/dL Borderline high: 130-159 mg/dL High: >160 mg/dL Calculated using the Kvng LDL-C estimating equation. This equation was implemented on 2024. Prior to this date LDL-C was estimated using the Friedewald equation. Literature References: 1. Expert Panel on Integrated Guidelines for Cardiovascular Health and Risk Reduction in Children and Adolescents. Pediatrics 2011;128:S213 2. NCEP Expert Panel. Circulation 2004;110:227 3. Kvng Sandoval et al. JOSE Cardiol. 2020 March 05;5(5):540-548. doi: 10.1001/[email or web address] Current Interpretive Data was last revised on 2024. Non-HDL Cholesterol 89 mg/dL [facility] Comment: Interpretive Data Ages < or = 19 years Acceptable: <120 mg/dL Borderline high: 120-144 mg/dL High: >145 mg/dL Ages > or = 20 years When triglycerides are >200 mg/dL, Non-HDL cholesterol is a secondary target of therapy with treatment goals that are 30 mg/dL greater than the LDL cholesterol target. Literature References: 1. Expert Panel on Integrated Guidelines for Cardiovascular Health and Risk Reduction in Children and Adolescents. Pediatrics 2011;128:S213 2. NCEP Expert Panel. Circulation 2004;110:227 Current Interpretive Data was last revised on 2018. Chol/HDL ratio 2 [facility] Blood Venous blood specimen / Unknown 10/17/2024 8:30 AM STONECUTTER ASSISTANT 10/17/2024 8:01 PM STONECUTTER ASSISTANT Narrative [facility] - 10/17/2024 8:41 PM STONECUTTER ASSISTANT FAX RESULTS [phone] JACINTO VELASQUEZ Jossie Velasquez MD LAB BLOOD ORDERABLES Final Result [facility] [address] [facility] Department [place] [address] from Last 3 Months or Most Recently Relevant to Health Maintenance Insurance MEDICARE SOLUTIONS MEDICARE SOLUTIONS Care Teams Cigarette Paper Tester Relationship Specialty Start Date End Date Phoebe Jaquez NP PCP - General Nurse Practitioner 11/24/19
--- OUTSIDE RECORDS SUMMARY | 2025-01-19 09:07 | XMS_ITS | Clinical Summary ---
Author Organization [facility] [place] [address] [place] [address] [address] [place] [address] Care Team Providers Care Leather Sprayer Name Role Phone Phoebe Jaquez NP Primary Care Provider [phone] Encounters Date Type Department Care Team Description 11/14/2024 Orders Only [facility] Cardiology [address] [facility] [address] [place] [address] Juanito Short MD 11/13/2024 Telephone [facility] Medical [facility] Cardiology [address] [facility] [address] [facility] [address] [place] [address] Juanito Short MD 11/12/2024 Orders Only [facility] Cardiology [address] [facility] [address] [place] [address] Juanito Short MD from Last 3 Months Social History Tobacco Use Types Packs/Day Years Used Date Smoking Tobacco: Never Assessed Sex and Gender Information Value Date Recorded Sex Assigned at Not on file Legal Sex Male 1:53 AM DIRECTOR 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 Gender Identity Not on file Sexual Orientation Not on file Plan of Treatment Health Maintenance Due Date Last Done Comments Depression Screening 1935 Fall Risk Assessment 1935 Dilated Eye Exam 1935 Foot Exam 1935 Hepatitis B Screening 1955 Well Visit 65+ 2002 Covid-19 Vaccine (7 2023-2 5 season) 2024 08/14/2023, 09/25/2022, 03/21/2022, Additional history exists Hemoglobin A1C 04/17/2025 10/17/2024, 06/07, 04/04/2024, Additional history exists Albumin Creatinine Ratio, Urine 10/17/2025 10/17/2024, 07/04/2024, 04/04/2024, Additional history exists Lipid Panel 10/17/2025 10/17/2024, 06/07, 04/04/2024, Additional history exists eGFR 10/17/2025 10/17/2024, 06/07, 11/22/2023 DTaP/Tdap/Td Vaccine (2 - Td or Tdap) 03/28/2031 03/28/2021 Zoster Vaccine Completed 03/21/2022, 03/21/2021 Pneumococcal vaccine 65+ Completed 023, 09/25/2022, 09/15/2019, Additional history exists Influenza Vaccine Completed 08/11/2024, , 09/19/2022, Additional history exists Procedures Procedure Name Priority Date/Time Associated Diagnosis Comments CARDIOLOGY DOCUMENT SCAN Routine 11/13/2024 1:10 PM [employer]OR EMPLOYMENT CARDIOLOGY DOCUMENT SCAN Routine 11/11/2024 12:08 PM DIRECTOR EMPLOYMENT CARDIOLOGY DOCUMENT SCAN Routine 11/10/2024 12:01 PM DIRECTOR EMPLOYMENT CARDIOLOGY DOCUMENT SCAN Routine 11/10/2024 10:45 AM [employer]OR EMPLOYMENT EGFR Routine 10/17/2024 8:30 AM [employer]OR EMPLOYMENT Diabetes mellitus without complication (HCC) HEMOGLOBIN A1C Routine 10/17/2024 8:30 AM [employer]OR EMPLOYMENT Diabetes mellitus without complication (HCC) LIPID PANEL Routine 10/17/2024 8:30 AM DIRECTOR EMPLOYMENT Diabetes mellitus without complication (HCC) ALBUMIN CREATININE RATIO, URINE Routine 10/17/2024 8:30 AM DIRECTOR EMPLOYMENT Diabetes mellitus without complication (HCC) from Last 3 Months or Most Recently Relevant to Health Maintenance Results * Cardiology Document Scan (11/13/2024 1:10 PM [employer]OR EMPLOYMENT) Anatomical Region Laterality Modality Other us Juanito Short MD [facility] PROCEDURES F inal Result * Cardiology Document Scan (11/11/2024 12:08 PM DIRECTOR EMPLOYMENT) Anatomical Region Laterality Modality Other Nathaniel Cade MD [facility] PRO CEDURES Final Result * Cardiology Document Scan (11/10/2024 12:01 PM DIRECTOR EMPLOYMENT) Anatomical Region Laterality Modality Other Juanito Short MD CV CARDIAC SERVICES PROCEDURES F inal Result * Cardiology Document Scan (11/10/2024 10:45 AM DIRECTOR EMPLOYMENT) Anatomical Region Laterality Modality Other Juanito Short MD CV CARDIAC SERVICES PROCEDURES F inal Result * eGFR (10/17/2024 8:30 AM DIRECTOR EMPLOYMENT) eGFR 65 >=60 mL/min/1. 73 m2 Comment: [...] last reviewed 2021. Blood 10/17/2024 8:30 AM DIRECTOR EMPLOYMENT 10/17/2024 8:17 PM DIRECTOR EMPLOYMENT Jossie Velasquez MD LAB BLOOD ORDERABLES Final Result [facility] [id number] Department [place] [address] * Albumin Creatinine Ratio, Urine (10/17/2024 8:30 AM DIRECTOR EMPLOYMENT) Albumin Ur <12.0 mg/L Comment: Interpretive Data No reference range established. Current interpretive data was last revised 2019. Creatinine Ur 107.9 mg/dL [facility] Comment: Interpretive Data No reference range established. Current interpretive data was last revised 2019. Albumin Creatinine Ratio, Ur <11 1 - 29 mg/g [facility] Urine (Urine, Clean Catch) 10/17/2024 8:30 AM DIRECTOR EMPLOYMENT 10/17/2024 8:01 PM DIRECTOR EMPLOYMENT Narrative [facility] - 10/17/2024 8:54 PM DIRECTOR EMPLOYMENT FAX RESULTS [phone] JACINTO VELASQUEZ Jossie Velasquez MD LAB URINE ORDERABLES Final Result Performing Organization Address [facility] de Phone Number [facility] [address] [employer] [place], [place] [phone] * (ABNORMAL) Hemoglobin A1c (10/17/2024 8:30 AM DIRECTOR EMPLOYMENT) Pathologist [facility] Hgb A1C 6.7(H) 4.0 - 5.6 % Estimated Average Glucose 146 mg/dL [facility] Comment: The ADA recommends reporting an estimated Average Glucose (eAG) with all Hemoglobin A1c results using the equation derived from a study of 507 normal and diabetic adults. Minority populations were underrepresented and children were not included. (Diabetes Care 31:3171-2005, 2008). The eAG is not equivalent to a fasting glucose. Blood Venous blood specimen / Unknown 10/17/2024 8:30 AM DIRECTOR EMPLOYMENT 10/17/2024 8:01 PM DIRECTOR EMPLOYMENT Narrative [facility] - 10/17/2024 8:35 PM DIRECTOR EMPLOYMENT FAX RESULTS [phone] JACINTO VELASQUEZ Jossie Velasquez MD LAB BLOOD ORDERABLES Final Result Performing Organization Address [facility] de Phone Number [facility] [address] [employer] [place], [place] [phone] * Lipid panel (10/17/2024 8:30 AM DIRECTOR EMPLOYMENT) Cholesterol 155 30 - 199 mg/dL Comment: [...] on 2018. Triglycerides 63 <=149 mg/dL [facility] Comment: Interpretive Data Ages [...] 2018. LDL, calculated 76 <=129 mg/dL [facility] Comment: Interpretive Data Ages [...] 3. Kvng Sandoval et al. JOSE Cardiol. 2019March 05;5(5):540-548. doi: [email or web address] Current Interpretive Data was last revised on 2024. Non-HDL Cholesterol 89 mg/dL [facility] Comment: Interpretive Data Ages [...] revised on 2018. Chol/HDL ratio 2 [facility] Blood Venous blood specimen / Unknown 10/17/2024 8:30 AM DIRECTOR EMPLOYMENT 10/17/2024 8:01 PM DIRECTOR EMPLOYMENT Narrative [facility] - 10/17/2024 8:41 PM DIRECTOR EMPLOYMENT FAX RESULTS [phone] JACINTO VELASQUEZ us Jossie Velasquez MD LAB BLOOD ORDERABLES Final Result [facility] [address] Department [place] [address] from Last 3 Months or Most Recently Relevant to Health Maintenance Insurance MEDICARE SOLUTIONS MEDICARE [employer]IONS Care Teams Leather Sprayer Relationship Specialty Start Date End Date Phoebe Jaquez NP PCP - General Nurse Practitioner 11/24/19
--- OUTSIDE RECORDS SUMMARY | 2025-01-19 09:07 | XMS_ITS | Data Portability ---
Author Organization [place] [facility] [place] [employer], Main Office Address [address] [place] [address] Care Team Providers Care Fsr Name Role Phone JACINTO VELASQUEZ Primary Care Provider [phone] JACINTO VELASQUEZ Referring Provider [phone] GIORGIO DOYLE Bedspread Cutter HANY LING Orthopedic Surgeon MITA YOUNGBLOOD Tire Room Supervisor JONNA MARIE Supervisor Real Estate Office [phone] Assessment Encounter Date Assessment Date Assessment LastModified by Organization Details LastModified Time 04/09/2024 04/09/2024 02/01/2023: A1C 7.9 Gluc 183 HGB 12.6 06/28/2023: A1C 7.4 Gluc 138, BUN 24, Alb 4.5H, TP WNL 11/22/2023: Gluc 134 TSH 4.4, FT4 1.50 A1C 7.1 04/04/2024: A1C 6.6 40 minutes spent with the patient and his , reviewed all his post hosp records Not available 04/09/2024 10:58:03 05/19/2024 05/19/2024 This note is dictated and transcribed by [employer]. Tobacco Scrap Sifter variances may occur. Despite proofreading, typographical errors may occur. Occasional wrong-word or '[id number]-[id number]' substitutions may have occurred due to the inherent limitations of voice recording. Read the chart carefully and recognize, using context, where substitutions have occurred. [email or web address] Not available 05/19/2024 11:40:56 07/14/2024 07/14/2024 02/01/2023: A1C 7.9 Gluc 183 HGB 12.6 06/28/2023: A1C 7.4 Gluc 138, BUN 24, Alb 4.5H, TP WNL 11/22/2023: Gluc 134 TSH 4.4, FT4 1.50 A1C 7.1 04/04/2024: A1C 6.6 07/04/2024: A1C 7.5 45 minutes spent with the patient and his , reviewed his labs and his xrays Not available 07/14/2024 18:21:45 10/22/2024 10/22/2024 02/01/2023: A1C 7.9 Gluc 183 HGB 12.6 06/28/2023: A1C 7.4 Gluc 138, BUN 24, Alb 4.5H, TP WNL 11/22/2023: Gluc 134 TSH 4.4, FT4 1.50 A1C 7.1 04/04/2024: A1C 6.6 07/04/2024: A1C 7.5 10/17/2024: K 5.1 A1C 6.7 Not available 10/22/2024 11:37:00 11/19/2024 11/19/2024 02/01/2023: A1C 7.9 Gluc 183 HGB 12.6 06/28/2023: A1C 7.4 Gluc 138, BUN 24, Alb 4.5H, TP WNL 11/22/2023: Gluc 134 TSH 4.4, FT4 1.50 A1C 7.1 04/04/2024: A1C 6.6 07/04/2024: A1C 7.5 10/17/2024: K 5.1 A1C 6.7 11/13/2024:[facility] labs H/H 12.9/40.4 Gluc 164, ALT 350, ALP 279 I have reconciled the patient's medications post their discharge from inpatient facility. Not available 11/19/2024 18:07:25 Plan of Treatment Reminders Order Date Submit Date Provider Last Modified By Organization Details Last Modified Time Details Appointments Follow Up 2024 09:45A Jaime cao MD Not available Not available Not available Lab potassium , serum or plasma [address], [address], [place], [address], 12/05/2024 15:51:14 glycohemo globin, total, blood [address], [address] , [place], [address], 12/05/2024 15:51:13 microalbu min, urine [address], [address] [place], [address], 12/05/2024 15:51:13 lipid panel, serum [address], [address] [place], [address], 12/05/2024 15:51:13 CMP, serum or plasma [address], [address] [place], [address], 12/05/2024 15:51:13 TSH, serum or plasma [address], [address] [place], [address], 12/05/2024 15:51:14 CBC w/ auto diff [address], [address] [place], [address], 12/05/2024 15:51:14 T4, free, serum [address], [address] [place], [address], 12/05/2024 15:51:14 potassium , serum or plasma [address] (Lab), [address], [place], [address], 10/30/2024 12:04:37 glycohemo globin, total, blood 2023 024 [facility] (Lab), [address], [place], [address], 10/22/2024 12:30:50 microalbu min, urine 2023 024 [facility] (Lab), [address], [place], [address], 10/22/2024 12:30:49 lipid panel, serum 2023 024 [facility] (Lab), [address], [place], [address], 10/22/2024 12:30:50 CMP, serum or plasma 2023 024 [facility] (Lab), [address], [place], [address], 10/22/2024 12:30:50 TSH, serum or plasma 2023 024 [facility] (Lab), [address], [place], [address], 10/22/2024 12:30:49 CBC w/ auto diff 2023 024 [facility] (Lab), [address], [place], [address], 10/22/2024 12:30:50 T4, free, serum 2023 024 [facility] (Lab), [address], [place], [address], 10/22/2024 12:30:50 glycohemo globin, total, blood 2023 024 [email or web address] Not available 01/13/2025 10:07:32 microalbu min, urine 2023 024 [email or web address] Not available 01/13/2025 10:07:32 lipid panel, serum 2023 024 [email or web address] Not available 01/13/2025 10:07:32 CMP, serum or plasma 2023 024 [email or web address] Not available 01/13/2025 10:07:33 TSH, serum or plasma 2023 024 [email or web address] Not available 01/13/2025 10:07:33 CBC w/ auto diff 2023 024 [email or web address] Not available 01/13/2025 10:07:33 T4, free, serum 2023 024 [email or web address] Not available 01/13/2025 10:07:33 glycohemo globin, total, blood 2023 024 [email or web address] Not available 10/06/2024 15:08:54 microalbu min, urine 2023 024 LISA Not available 07/08/2024 13:57:20 lipid panel, serum 2023 024 [email or web address] Not available 10/06/2024 15:08:54 CMP, serum or plasma 2023 024 [email or web address] Not available 10/06/2024 15:08:54 TSH, serum or plasma 2023 024 [email or web address] Not available 10/06/2024 15:08:54 CBC w/ auto diff 2023 024 [email or web address] Not available 10/06/2024 15:08:55 T4, free, serum 2023 024 [email or web address] Not available 10/06/2024 15:08:55 Referral orthopedi c surgeon referral 2024 025 Isaiah Mccartney MD, [address] [facility] [address], [facility] [place], [address], 12/05/2024 15:51:17 cardiolog ist referral 2024 025 Tanmay [place], [address], [place], [address], 12/05/2024 15:51:16 podiatris t referral 2024 025 Giorgio Doyle DPM, [address], [address], [place], [address], 12/05/2024 15:51:17 orthopedi c surgeon referral 2023 024 [email or web address] Isaiah Mccartney MD, [address], [place], [address], 10/23/2024 11:37:40 cardiolog ist referral 2023 024 [email or web address] Tanmay Jaeger, [address] [address], [place], [address], 10/23/2024 11:37:39 podiatris t referral 2023 024 [email or web address] Giorgio Doyle DPM, [address] [facility], [address], [place], [address], 10/23/2024 11:37:39 orthopedi c surgeon referral 2023 024 [email or web address] Isaiah Mccartney MD, [address], [place], [address], 08/05/2024 11:55:23 cardiolog ist referral 2023 024 [email or web address] Tanmay Jaeger, [address] [address], [place], [address], 08/12/2024 16:14:25 podiatris t referral 2023 024 Giorgio Doyle DPM, [address] [facility], [address], [place], [address], 08/12/2024 16:14:24 cardiolog ist referral 2023 024 [email or web address] Tanmay Ordoñezr, [address], [place], [address], 05/07/2024 08:48:43 podiatris t referral 2023 024 [email or web address] Giorgio UNDERWOODM, [address] [facility], [address], [place], [address], 05/07/2024 08:48:22 Procedures None recorded. Surgeries None recorded. Imaging None recorded. Medication Orders None recorded. Patient TargetsNo targets recorded. Patient Instructions Encounter Date Encounter Id Patient Instructions Last Modified By Organization Details Last Modified Time 04/09/2024 [id number] dementia rating scale-2* [email or web address] Not available 04/09/2024 11:28:25 alcohol misuse* [email or web address] Not available 04/09/2024 11:28:10 depression screening* [email or web address] Not available 04/09/2024 11:28:42 Timed Up and Go test (TUG)* [email or web address] Not available 04/10/2024 13:35:31 multi-dimensiona l health assessment questionnaire* [email or web address] Not available 04/10/2024 13:35:17 Personalized [facility] Plan and Screening Recommendations Advance Directives - Do you have one? Yes Advance Directives - Do we have your advance directive on file in your health record? No, please bring in a copy at your earliest convenience Primary Prevention/Interven tion (prevents or decreases the chance of common diseases from occurring) Smoking Risk: Non Smoker Alcohol Misuse Screening: Negative Weight: Appropriate Physical activity: Need more exercise/physical activity decrease sitting time to no more than 5hr/day Nutrition: Good Average Refer to attached handout Heart-Healthy Diet: After Your Visit Fall Risk (screened today): High Refer to attached handout Preventing Falls: After your Visit Vaccines Pneumococcal: Ordered Recommended today Recommended today, but you have declined No further needed Influenza: Your next one in the fall of this year Chronic Disease Risks Stroke: Low Risk Intermediate Risk I have no recommendations Heart Attack: Low risk Intermediate Risk Clogging of the Arteries: Low risk Intermediate Risk I have no recommendations Act rashida diagnosis, Continue current treatment plan Diabetes: High Risk Active diagnosis, Continue current treatment plan Secondary Prevention/Interven tion (detects treatable diseases before they may cause symptoms, disability, or ) Prostate Cancer Screening: No PSA screening necessary Colon Cancer Screening: No screening necessary Date Screening Last Performed: 01/25/24 Eye Disease Screening: Ordered Recommended today Dementia Risk: Low I have no recommendations Depression Screening: Negative [email or web address] Not available 04/09/2024 11:31:06 11/19/2024 [id number] Thank you for yo ur visit to our office today. We would like to request that you reach out to your referring or previous provider and request that they send us a Summary of Care in electronic form, so that we may have it on file in your medical record. At your visit, we had the medical records we needed to provide you with the best possible care; however, for insurance purposes, an electronic Summary of Care is beneficial. Thank you for your assistance in obtaining this information and we look forward to providing continued care to you. Please review your medication list from the Summary of Care for this visit. If there are any differences from what you are currently taking at home, please call us to discuss. [email or web address] Not available 11/19/2024 17:42:06 Homebound Status : {{Patient has an inability to leave the home without a taxing effort and assistance from another person* Does not meet homebound status}} Required Home Health Services: {{none* long term, physical therapy, occupational therapy long term, physical therapy long term}} Durable Medical Equipment needed: {{cane walker* walk er with seat manual wheelchair bedside commode oxygen}} Billing Guidelines CPT code 55475- Transitional Care Management services with moderate medical decision complexity (ufno-br-xiim visit within 14 days of discharge). CPT code 70784- Transitional Care Management services with high medical decision complexity (yzwd-bq-hpff visit within 7 days of discharge). Not available 11/19/2024 17:49:24 Reason for Referral Bedspread Cutter Referral for Type 2 diabetes mellitus without complication Referring Physician: Jacinto Velasquez Internal Medicine, Encounter Date: 04/09/2024 Tire Room Supervisor Referral for Pa roxysmal atrial fibrillation Referring Physician: Carissa Dozier Medicine, Encounter Date: 04/09/2024 Bedspread Cutter Referral for Type 2 diabetes mellitus without complication Referring Physician: Jacinto Velasquez Internal Medicine, Encounter Date: 07/14/2024 Tire Room Supervisor Referral for Pa roxysmal atrial fibrillation Referring Physician: Jacinto Velasquez Internal Medicine, Encounter Date: 07/14/2024 Orthopedic Surgeon Referral for Bilateral hip joint pain Referring Physician: Jacinto Velasquez Internal Medicine, Encounter Date: 07/14/2024 Bedspread Cutter Referral for Type 2 diabetes mellitus without complication Referring Physician: Carissa Dozier Medicine, Encounter Date: 10/22/2024 Tire Room Supervisor Referral for Pa roxysmal atrial fibrillation Referring Physician: Carissa Dozier Medicine, Encounter Date: 10/22/2024 Orthopedic Surgeon Referral for Bilateral hip joint pain Referring Physician: Carissa Dozier, Encounter Date: 10/22/2024 Bedspread Cutter Referral for Type 2 diabetes mellitus without complication Referring Physician: Carissa Dozier Medicine, Encounter Date: 11/19/2024 Tire Room Supervisor Referral for Pa roxysmal atrial fibrillation Referring Physician: Carissa Dozier Medicine, Encounter Date: 11/19/2024 Orthopedic Surgeon Referral for Bilateral hip joint pain Referring Physician: Carissa Dozier Medicine, Encounter Date: 11/19/2024 Results Created Date Observation Date Name Description Value Unit Range Abnormal Flag Note LastModifiedBy Organization Detail LastModifiedTime 05/23/20 24 05/21/2024 inj large jnt hip knee shoul dr [facility] [address], [place] [address] [phone] Javan t Name: ANNETTE LEWIS IEL Access ion #: [id number] Sex: M : 1934 2 Locati on: RAD Attend ing Physic davon: HANY LING Orderi ng Physic davon: HANY LING Exam Date: 9:04 AM Exam Name: XR INJ LG JNT HIP/KN EE/PRABHA ULDR Admitt ing Diagno sis(es ): RADIOL OGY REPORT - FINAL EXAM: XR INJ LG JNT HIP/KN EE/PRABHA ULDR HISTOR Y: osteoa rthiti s 88-yea r-old male with right hip pain, osteoa rthrit is. COMPAR SHARMILA: Radiog raphs dated 2023. TECHNI QUE: PRE-LA OCEDUR E: The patien t was ashly t to the fluoro scopy suite. Risks and benefi ts of hip inject ion were discus sed with the patien t, includ ing risks of bleedi ng, infect ion, and allerg ic reacti on. The patien t agreed to procee d and gave inform ed consen t. Time-o ut was perfor med. The skin of the right hip was marked with a marker , and the patien t agreed that this was the correc t side. Fluoro time: 0.3 minute s; DAP: 1.8 mGy; single fluoro scopic spot view was perfor med. Page 1 of [address] [facility] Javan t Name: ANNETTE LEWIS IE Access ion #: [id number] Sex: M : 1934 2 Exam Date: 9:04 AM Exam Name: XR INJ LG JNT HIP/KN EE/PRABHA ULDR Admitt ing Diagno sis(es ): INJECT ATE: 4 ml 1% lidoca ine withou t epinep hrine; 40 mg Depo-M edrol. PROCED URE: The patien t was placed in supine positi on on the fluoro scopy table. Fluoro scopic image was review ed and demons trated osteoa rthrit is. The femora l artery was palpat ed and its locati on was marked on the skin. The right groin was preppe d and draped steril cruz with Betadi ne. The skin and subcut aneous tissue s superf icial to the femora l neck were anesth etized with 1% lidoca ine withou t epinep hrine. A 22 gauge spinal needle was advanc ed to the femora l head-n noah juncti on under fluoro scopic visual izatio n. Small test inject ion of Isovue [address] was perfor med to confir m intra- articu lar placem ent. A fluoro scopic spot film was obtain ed. The mixtur e of the steroi d and local anesth etic was then inject ed into the right hip joint. The needle was then remove d. The skin was cleans ed, and a small bandag e was placed . The patien t tolera cj the proced ure well and there were no immedi ate compli cation s. IMPRES ADALGISA: Succes sful right hip inject ion with lidoca ine and Depo-M edrol. The patien t was instru cted to monito r hip pain level closel y in the next few hours to days. Create d and electr onical ly signed by: Fredrick mccurdy MD Signed Date: 9:34 AM (CT) Dictat ed by: Fredrick mccurdy MD Page 2 of 3 [facility] Name: ANNETTE LEWIS IE Access ion #: [id number] Sex: M : 1934 2 Exam Date: 9:04 AM Exam Name: XR INJ LG JNT HIP/KN EE/PRABHA ULDR Admitt ing Diagno sis(es ): DD: 9:34 AM (CT) DT: 9:34 AM (CT) Page 3 of [address] (Imaging) [address] [place] [address], [address], 05/23/2024 10:44:10 05/23/20 24 05/21/2024 imagi ng/di agnos tic resul t No observ ation record ed. [facility] [address] [place], [address], 05/23/2024 10:39:25 06/11/20 24 06/11/2024 imagi ng/di agnos tic resul t No observ ation record ed. [address], [place], [address], 06/11/2024 18:29:35 06/11/20 24 06/11/2024 imagi ng/di agnos tic resul t No observ ation record ed. [address], [place], [address], 06/11/2024 18:37:33 06/11/20 24 06/11/2024 imagi ng/di agnos tic resul t No observ ation record ed. [address], [place], [address], 06/11/2024 18:43:49 11/07/19 25 11/07/2024 imagi ng/di agnos tic resul t No observ ation record ed. [address], [place], [address], 11/07/2024 14:37:03 11/08/19 25 11/08/2024 imagi ng/di agnos tic resul t No observ ation record ed. [address], [place], [address], 11/08/2024 15:46:15 Result Notes None recorded. Problems Name Problem SNOMED Code Status Onset Date Resolution Date Notes Provider Name and Address Organization Details Recorded Time Abnormal gait 88390034 Active 2022 Not Available [facility] 08:54:30 Gastroesop hageal reflux disease without esophagiti s 829704095 Active 2022 Not Available [facility] 4 08:54:30 Erectile dysfunctio n 934657457 Active 2022 Not Available [facility] 4 08:54:30 Pain of right shoulder joint 9631600337373 9100 Active 2022 Not Available [facility] 4 08:54:30 Dystrophia unguium 01609477 Active 2022 Not Available [facility] 4 08:54:30 Diabetic peripheral neuropathy 614320530 Active 2022 Not Available [facility] 4 08:54:30 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 7968197343473 00 Active 2022 Not Available [facility] 4 08:54:30 Bronchitis 54969071 Active 2022 Not Available [facility] 4 08:54:30 Coronary arterioscl erosis 86416728 Active 2023 Jacinto shay MD [address], [address], [place], [address] , [place] [facility] [place] [employer] [facility] 4 11:43:30 Paroxysmal atrial fibrillati on 028471700 Active 2023 Jacinto shay MD [address], [address], [place], [address] , [place] [facility] [place] [employer] [facility] 4 11:45:40 Unsteady when walking 19468338 Active 2023 Jacinto shay MD [address], [address], [place], [address] , [place] [facility] 4 12:49:16 Chronic low back pain 201996807 Active 2023 Jacinto shay MD [address], [address], [place], [address] , [place] [facility] 4 11:40:24 Radiology result abnormal 210284907 Active 2023 Cely Morales MA null, [place] [facility] [place] [facility] 4 16:42:40 Bilateral hip joint pain 1239931040919 9100 Active 2023 Kim Mary CNA null, [place] [facility] [place] [facility] 4 11:38:20 Laboratory test result abnormal 270554825 Active 2023 Cely Morales MA null, [place] [facility] 4 10:24:17 Osteoarthr itis of bilateral hip joints 5955712051046 05 Active 2023 FAUZIA Irwin [address], [address], [place], [address] , [facility] 4 11:19:45 Pain in right hip joint 3005751972552 02 Active 2023 FAUZIA Irwin [address], [address], [place], [address] , [facility] 4 11:20:07 Small bowel obstructio n 109757133 Active 2023 Jacinto shay MD [address], [address], [place], [address] , [facility] 4 17:53:12 Osteoarthr itis of right hip joint 2994795441336 07 Active 2023 Gregoria Camila null, [place] [facility] [place] [facility] 4 16:11:53 Osteoarthr itis of hip 622737586 Active 2023 Gregoria Camila null, [place] [facility] [place] [facility] 4 16:12:05 Hyperkalem ia 71269174 Active 2023 Jacinto shay MD [address], [address], [place], [address] , [facility] 4 19:24:57 Liver enzymes level above reference range 813838055 Active 2024 Jacinto shay MD [address], [address], [place], [address] , [place] [facility] 5 17:48:28 Edema of lower extremity 894255196 Active 2020 Not Available [facility] 4 08:54:30 History of arthroplas ty of right knee 8916766717044 106 Active 2021 Not Available [facility] 4 08:54:30 Gastroesop hageal reflux disease 125425836 Active 2017 Not Available [facility] 4 08:54:30 Osteoarthr itis of knee 460101043 Active 2021 Not Available [facility] 4 08:54:30 Anemia 004382671 Active 2019 Not Available [facility] 4 08:54:30 Foot swelling 959480591 Active 2019 Not Available [facility] 4 08:54:30 Knee pain Active Not Available [facility] 4 08:54:30 Type 2 diabetes mellitus without complicati on 213761083 Active 2017 Not Available [facility] 4 08:54:30 Osteoarthr itis of right knee joint 2747210772761 00 Active 2021 Not Available [facility] 4 08:54:30 Osteoarthr itis 122363874 Active Not Available [facility] 4 08:54:30 Hyperlipid emia 34351713 Active 2017 Not Available [facility] 4 08:54:30 Diabetes mellitus 48097923 Active 2016 Not Available [facility] 4 08:54:30 Gout 14535299 Active 2017 Not Available [facility] 4 08:54:30 Notes:Some problems listed i n Document: #[id number] could not be added to this patient's chart. Please review this document and add these problems to the patient's chart manually as needed. Problem Notes None recorded. Procedures Surgical History Date Name Laterality Status Provider Name and Address Organization Details Recorded Time 11/19/19 25 Transitional_Car e_Management completed Jacinto Velasquez MD [address], [address], [place], [address], [facility] [employer] [facility] 11/19/2024 17:47:32 05/19/20 24 Nail Debridement completed Giorgio Doyle DPM [address], [address], [place], [address], [facility] [employer] [facility] 05/19/2024 11:39:35 04/09/20 24 Medicare Wellness CPT Code, subsequent completed Tyrone Gutierrez LPN [facility] [employer] [facility] 04/04/2024 10:07:34 01/23/20 24 partial excision of small intestine completed SONIDO Colvin [facility] 04/09/2024 10:41:50 07/16/20 23 Nail Debridement completed Giorgio Doyle DPM [address], [address], [place], [address], [facility] [employer] [facility] 07/16/2023 14:59:06 04/09/20 23 Nail Debridement completed Giorgio Doyle DPM [address], [address], [place], [address], [facility] [employer] 04/09/2023 14:56:17 04/09/20 23 Medicare Wellness CPT Code, subsequent completed Amena Mejia RN [facility] [employer] 04/09/2023 11:30:03 Appendectomy completed Not Available [facility] 01/03/2023 04:41:38 Cardiac Stent Placement completed Dinorah Hooks MA [facility] [employer] 11/19/2024 17:38:28 Imaging Results Imaging Date Name Status LastModified by Organiz [facility] Details LastModified Time 05/21/2024 inj large jnt hip knee shouldr completed [address] (Imaging) [address] [place], [address], 05/23/2024 10:44:10 05/21/2024 imaging/diag nostic result active [facility] [address] [place], [address], 05/23/2024 10:39:25 06/11/2024 imaging/diag nostic result active [address] [facility], [place], [address], 06/11/2024 18:29:35 06/11/2024 imaging/diag nostic result active [address] [place] [address], [address], 06/11/2024 18:37:33 06/11/2024 imaging/diag nostic result active [address] [facility] [facility], [place], [address], 06/11/2024 18:43:49 11/07/2024 imaging/diag nostic result active [address] [facility], [place], [address], 11/07/2024 14:37:03 11/08/2024 imaging/diag nostic result active [address] [place] [address], [address], 11/08/2024 15:46:15 Procedure Notes None recorded. Medical Equipment None Reported. Allergies Allergen ID Allergen Name Allergen Category Reaction Reaction Severity Criticality Documentation Date Start Date Code Code System Note Provider Name and Address Organization Details Recorded Time 48227 lisinopri l medicatio n dizziness Not available Not available 07/16/2023 82264 RxNorm SONIDO Colvin, [place] - [facility] 12:00:19 Medications Name Sig Start Date Stop Date Status Note LastModified by Organization Details LastModified Time atorvasta tin 40 mg tablet TAKE 1 TABLET BY MOUTH EVERY DAY active Not Available Not Available No t Available metformin 500 mg tablet TAKE TWO TABLETS BY MOUTH TWICE A DAY FOR 90 DAYS 11/19 completed Not Available Not Available Not Available atorvasta tin 80 mg tablet TAKE 1 TABLET BY MOUTH EVERY EVENING active Not Available Not Available No t Available prednison e 10 mg tablet PLEASE SEE ATTACHED FOR DETAILED DIRECTIO NS 01/31 completed Not Available Not Available Not Available doxycycli ne hyclate 100 mg capsule Take 1 capsule twice a day by oral route for 10 days. active Not Available Not Available No t Available azithromy jerry 250 mg tablet TAKE 2 TABLETS BY MOUTH TODAY, THEN TAKE 1 TABLET DAILY FOR 4 DAYS 12/06 completed Not Available Not Available Not Available metoprolo l succinate ER 50 mg tablet,ex tended release 24 hr TAKE 2 TABLETS BY MOUTH EVERY MORNING 2024 active Not Available Not Available Not Avai lable hydrocodo ne 5 mg-acetam inophen 325 mg tablet 02/21 completed Not Available Not Available Not Available meloxicam 15 mg tablet TAKE 1 TABLET BY MOUTH EVERY DAY 11/19 completed Not Available Not Available Not Available sucralfat e 1 gram tablet active Not Available Not Available Not Available bupivacai ne HCl 0.5 % (5 mg/mL) injection solution Take 20 mg by injectio n route. 12/06 completed Not Available Not Available Not Available Viagra 50 mg tablet 01/05 completed Not Available Not Available Not Available metronida zole 500 mg tablet Take 1 tablet every 8 hours by oral route for 10 days. active Not Available Not Available No t Available clopidogr el 75 mg tablet active Not Available Not Available Not Available ciproflox acin 250 mg tablet Take 1 tablet twice a day by oral route for 10 days. 01/05 completed Not Available Not Available Not Available tramadol 50 mg tablet TAKE 1 TABLET BY MOUTH TWICE DAILY NEEDED FOR KNEE PAIN 12/06 completed Not Available Not Available Not Available simvastat in 40 mg tablet TAKE 1 TABLET BY MOUTH ONCE DAILY 04/09 completed Not Available Not Available Not Available prednison e 10 mg tablets in a dose pack Take 1 tab by mouth, 3 times a day for 3 daysTake 1 tab by mouth 2 times a day for 2 daysTake 1 tab by mouth once a day for 1 day 12/06 completed Not Available Not Available Not Available diltiazem ER 120 mg capsule,e xtended release 12 hr TAKE 1 CAPSULE BY MOUTH EVERY DAY active Not Available Not Available No t Available meloxicam 7.5 mg tablet TAKE 1 TABLET BY MOUTH EVERY DAY NEEDED FOR 15 DAYS WITH FOOD 06/05 /2024 completed Not Available Not Available Not Available Tessalon Perles 100 mg capsule Take 1 capsule 3 times a day by oral route as needed. 03/19 completed Not Available Not Available Not Available OneTouch Ultra Test strips USE 1 STRIP TO TEST BLOOD SUGAR ONCE DAILY active Not Available Not Available No t Available Kenalog 10 mg/mL suspensio n for injection Take 2 mL by injectio n route. 07/16 completed [facility]: [phone] 4-20 Not Available Not Available Not Available cephalexi n 500 mg capsule 04/11 completed Not Available Not Available Not Available pantopraz ole 40 mg tablet,de layed release TAKE 1 TABLET BY MOUTH TWICE DAILY active Not Available Not Available No t Available ferrous sulfate 325 mg (65 mg iron) tablet TAKE 1 TABLET BY MOUTH EVERY DAY 01/05 completed Not Available Not Available Not Available docusate sodium 100 mg capsule 02/21 completed Not Available Not Available Not Available omeprazol e 20 mg capsule,d elayed release Take 1 capsule every day by oral route. active Not Available Not Available No t Available codeine 10 mg-guaife nesin 100 mg/5 mL oral liquid 02/21 completed Not Available Not Available Not Available allopurin ol 300 mg tablet TAKE 1 TABLET BY MOUTH EVERY DAY active Not Available Not Available No t Available aspirin 81 mg tablet Take by oral route. active Not Available Not Available No t Available diltiazem ER 60 mg capsule,e xtended release 12 hr TAKE 1 CAPSULE BY MOUTH TWICE A DAY 12/10 completed changed to one capsule Not Available Not Available Not Available methylpre dnisolone 4 mg tablets in a dose pack TAKE 6 TABLETS ON DAY 1 DIRECTED ON PACKAGE AND DECREASE BY 1 TAB EACH DAY FOR A TOTAL OF 6 DAYS 09/10 completed Not Available Not Available Not Available ferrous sulfate 325 mg (65 mg iron) tablet,de layed release TAKE 1 TABLET BY MOUTH DAILY active Not Available Not Available No t Available Vitamin D2 1,250 mcg (50,000 unit) capsule Take 1 capsule by mouth every week 02/21 completed Not Available Not Available Not Available metformin ER 500 mg tablet,ex tended release 24 hr active Not Available Not Available Not Available amoxicill in 875 mg-potass ium clavulana te 125 mg tablet 04/11 completed Not Available Not Available Not Available Asprin Ec Low Dose 81 mg tablet,de layed release Take 1 tablet every day by oral route. 01/01 completed Not Available Not Available Not Available ezetimibe 10 mg tablet TAKE 1 TABLET BY MOUTH DAILY active Not Available Not Available No t Available cyclobenz aprine 5 mg tablet 02/21 completed Not Available Not Available Not Available moxifloxa jerry 0.5 % eye drops 04/24 completed Not Available Not Available Not Available tadalafil 20 mg tablet Take 1 tablet every day by oral route as needed for 30 days. 01/01 completed Not Available Not Available Not Available magnesium 02/21 completed Not Available Not Available Not Available folic acid 400 MCG one a day 11/19 completed Not Available Not Available Not Available ranolazin e ER 500 mg tablet,ex tended release,1 2 hr TAKE 1 TABLET BY MOUTH TWICE DAILY active Not Available Not Available No t Available diclofena c 1 % topical gel APPLY 2 GRAM TO THE LEFT KNEE BY TOPICAL ROUTE 4 TIMES PER DAY 09/15 completed Not Available Not Available Not Available Durezol 0.05 % eye drops 02/21 completed Not Available Not Available Not Available vit D3-vit K-berberi ne-hops active Not Available Not Available Not Available ropivacai ne (PF) 5 mg/mL (0.5 %) injection solution Take 8 mL by injectio n route. 07/16 completed [facility] [address]-33 4- Not Available Not Available Not Available Ilevro 0.3 % eye drops,aryan pension 02/21 completed Not Available Not Available Not Available Eliquis 5 mg tablet TAKE 1 TABLET BY MOUTH TWICE DAILY active Not Available Not Available No t Available dapaglifl ozin propanedi ol 10 mg tablet TAKE 1/2 TABLET BY MOUTH EVERY DAY 2024 active Not Available Not Available Not Avai lable OneTouch Ultra Blue Test Strip USE 1 STRIP TO TEST BLOOD SUGAR ONCE DAILY 01/01 completed Not Available Not Available Not Available OneTouch Delica Plus Lancet 33 gauge USE TO TEST TWICE DAILY active Not Available Not Available No t Available Vitals Date Recorded Body height Body mass index (BMI) Body weight Body temperature Heart rate Systolic blood pressure Diastolic blood pressure Provider Name and Address Organization Details Last Updated DateTime 4 182.88 cm 21.2 kg/m2 34572.4 1 g 97.2 [degF] 78 /min 110 mm[Hg] 60 mm[Hg] SONIDO Colvin [facility] 4 10:44:25 Date Recorded Pain severity - 0-10 verbal numeric rating [Score] - Reported Provider Name and Address Organization Details Last Updated DateTime 04/09/2024 0 Tyrone Gutierrez LPN [facility] 04/09/2024 11:24:43 Date Recorded Body height Body mass index (BMI) Body weight Heart rate Systolic blood pressure Diastolic blood pressure Provider Name and Address Organization Details Last Updated DateTime 4 182.88 cm 21.2 kg/m2 98166.4 1 g 107 /min 144 mm[Hg] 85 mm[Hg] Tomasa Greene [facility] 4 11:01:43 Date Recorded Body height Body mass index (BMI) Body weight Body temperature Heart rate Respiratory rate Oxygen saturation Oxygen saturation in Arterial blood by Pulse oximetry Pain severity - 0-10 verbal numeric rating [Score] - Reported Systolic blood pressure Diastolic blood pressure Provider Name and Address Organization Details Last Updated DateTime 4 182.88 cm 21.3 kg/m2 72086 g 97.7 [degF] 74 /min 18 /min 98 % 98 % 0 110 mm[Hg] 68 mm[Hg] Tyrone Gutierrez LPN [facility] 4 11:05:43 Date Recorded Body height Body mass index (BMI) Body weight Body temperature Heart rate Systolic blood pressure Diastolic blood pressure Provider Name and Address Organization Details Last Updated DateTime 4 182.88 cm 21.7 kg/m2 40320.7 8 g 97.6 [degF] 78 /min 118 mm[Hg] 70 mm[Hg] Maureen Mckeon Ike [facility] 4 11:28:52 Date Recorded Body height Body mass index (BMI) Body weight Body temperature Heart rate Oxygen saturation Oxygen saturation in Arterial blood by Pulse oximetry Pain severity - 0-10 verbal numeric rating [Score] - Reported Systolic blood pressure Diastolic blood pressure Provider Name and Address Organization Details Last Updated DateTime 5 182.88 cm 21.3 kg/m2 24446 g 97.8 [degF] 92 /min 92 % 92 % 0 124 mm[Hg] 64 mm[Hg] Dinorah Hooks MA [place] - [facility] [employer] 5 17:33:06 Social History Question Answer Notes LastModified by Organizat ion Details LastModified Time Tobacco Smoking Status Never Smoker Not Available [facility] 01/03/2023 04:16:31 Do You Have An Advance Directive? Yes [email or web address] Information not available 04/09/2023 What Is Your Level Of Alcohol Consumption? None [id number] Information not available 01/03/2023 Are You Blind Or Do You Have Difficulty Seeing? No [email or web address] Information not available 04/09/2023 What Is Your Level Of Caffeine Consumption? Occasional [id number] Information not available 01/03/2023 In The 14 Days Before Symptom Onset, Have You Had Close Contact With A Laboratory-confi rmed COVID-19 While That Case Was Ill? No Information not available 04/09/2023 In The 14 Days Before Symptom Onset, Have You Had Close Contact With A Person Who Is Under Investigation For COVID-19 While That Person Was Ill? No Information not available 04/09/2023 Are You Currently Employed? No Retired [email or web address] Information not available 04/09/2024 Are You Deaf Or Do You Have Serious Difficulty Hearing? No [email or web address] Information not available 04/09/2023 What Type Of Diet Are You Following? REGULAR [id number] Information not available 01/03/2023 What Is The Highest Grade Or Level Of School You Have Completed Or The Highest Degree You Have Received? [id number] MIGRATION.51894 [id number] Information not available 01/03/2023 Have There Been Any Changes To Your Family Or Social Situation? No [email or web address] Information not available 04/09/2024 What Is The Fluoride Status Of Your Home? Unknown [email or web address] Information not available 04/09/2024 Are There Any Guns Present In Your Home? No [email or web address] Information not available 04/09/2024 Do You Use Insect Repellent Routinely? Yes [id number] Information not available 01/03/2023 Where Do You Live? [facility] Information not available 04/09/2024 Presence Of Domestic Violence No [email or web address] Information not available 04/09/2023 Guns Present In The Home? No [email or web address] Information not available 04/09/2024 Are You Able To Care For Yourself? Yes [email or web address] Information not available 04/09/2023 Are You Blind Or Do Yo Have Difficulty Seeing? No [email or web address] Information not available 04/09/2023 Are You Deaf Or Do You Have Serious Difficulty Hearing? No [email or web address] Information not available 04/09/2023 General Stress Level? Low [email or web address] Information not available 04/09/2023 Live Alone Of With Others? With Others [email or web address] Information not available 04/09/2023 Do You Have A Medical Power Of Medical Technician? Yes [email or web address] Information not available 04/09/2024 What Was The Date Of Your Most Recent Tobacco Screening? 11/19/2024 [email or web address] Information not available 11/19/2024 Do You Have Any Pets? No Information not available 04/09/2024 What Is Your Relationship Status? [id number].[id number] Information not available 01/03/2023 Do You Use Your Seat Belt Or Car Seat Routinely? Yes Information not available 04/09/2023 Do You Have Smoke And Carbon Monoxide Detectors In Your Home? Yes MIGRATION.86662 [id number] Information not available 01/03/2023 Are You Passively Exposed To Smoke? No MIGRATION.50244 49316 Information not available 01/03/2023 Are There Any Smokers In Your House? No MIGRATION.68926 74300 Information not available 01/03/2023 What Types Of Sporting Activities Do You Participate In? None Information not available 04/09/2024 Do You Feel Stressed (tense, Restless, Nervous, Or Anxious, Or Unable To Sleep At Night)? [id number] MIGRATION.14512 [id number] Information not available 01/03/2023 Do You Use Any Illicit Or Recreational Drugs? No MIGRATION.03186 76352 Information not available 01/03/2023 Do You Use Sunscreen Routinely? Yes MIGRATION.74502 97490 Information not available 01/03/2023 Has Tobacco Cessation Counseling Been Provided? No N/a Information not available 07/16/2023 Have You Recently Traveled Abroad? No Information not available 04/09/2023 Do You Have Any Dietary Restrictions? No MIGRATION.87880 74329 Information not available 01/03/2023 Do You Or Have You Ever Used Any Other Forms Of Tobacco Or Nicotine? No Information not available 07/16/2023 Sex: Unknown Functional Status Question Answer Note LastModified by Organizat ion Details LastModified Time Do you have difficulty walking or climbing stairs? No [email or web address] Information not available 04/09/2023 Do you have transportation difficulties? No [email or web address] Information not available 04/09/2024 Are you able to walk? YESASSIST Walker Information not available 04/09/2024 Do you have difficulty doing errands alone? No [email or web address] Information not available 04/09/2023 Are you able to care for yourself? Yes Information n ot available 04/09/2023 Do you have difficulty dressing or bathing? No [email or web address] Information not available 04/09/2023 What is your exercise level? None [email or web address] Information not available 04/09/2024 Mental Status Question Answer Note LastModified by Organization D etails LastModified Time Do you have difficulty concentrating, remembering or making decisions? No [email or web address] Information no t available 04/09/2023 Family History Relationship Description Onset Age of this Age Resolved Age Notes LastModified by Organization Details LastModified Time Sister Family history of malignant neoplasm [id number] Not available 01/03/2023 04:41:41 Sister Diabetes mellitus [id number] Not available 01/03/2023 04:41:41 Brother Family history of malignant neoplasm [email or web address] Not available 2023 11:36:30 Sister Family history of stroke [email or web address] Not available 2023 11:36:42 Medical History Condition Response ARTHRITIS Y ULCERS Y USE OF BLOOD THINNERS Y DIABETES, TYPE Y HIGH CHOLESTEROL / HYPERLIPIDEMIA Y GOUT Y Immunizations Vaccine Type Date Status Note Provider Nam e and Address Organization Details Recorded Time COVID-19, mRNA, LNP-S, PF, tam-sucrose, 30 mcg/0.3 mL 3 completed Maureen Mckeon RMA brandon, [facility] 11/13/2023 12:14:33 RSV, recombinant, protein subunit RSVpreF, adjuvant reconstituted, 0.5 mL, PF 4 completed Maureen Mckeon RMA brandon, [facility] 12/10/2023 17:42:14 pneumococcal polysaccharide PPV23 3 completed Maureen Mckeon RMA brandon, [facility] 08/22/2024 12:47:49 COVID-19, mRNA, LNP-S, PF, tam-sucrose, 30 mcg/0.3 mL 4 completed UNA ColvinA brandon, [facility] 08/22/2024 12:48:18 COVID-19, mRNA, LNP-S, PF, 100 mcg/0.5mL dose or 50 mcg/0.25mL dose 1 completed Not Available [facility] 07/16/2023 07:27:59 Influenza, split virus, quadrivalent, preservative 9 completed Not Available [facility] 07/16/2023 07:27:59 Pneumococcal conjugate PCV 13 9 completed Not Available [facility] 07/16/2023 07:27:59 Influenza, high-dose, quadrivalent, PF 2 completed Not Available [facility] 07/16/2023 07:27:59 Influenza, high-dose, quadrivalent, PF 1 completed Not Available [facility] 07/16/2023 07:27:59 Influenza, high-dose, quadrivalent, PF 0 completed Not Available [facility] 07/16/2023 07:27:59 Influenza, high-dose, trivalent, PF 9 completed Not Available [facility] 07/16/2023 07:27:59 Influenza, high-dose, trivalent, PF 8 completed Not Available [facility] 07/16/2023 07:27:59 Influenza, high-dose, trivalent, PF 4 completed Yasmin Willard MA null, [facility] 08/11/2024 15:01:10 Past Encounters Encounter ID Performer Location Encounter Start Date Encounter Closed Date Diagnosis/Indication Diagnosis SNOMED-CT Code Diagnosis ICD10 Code Diagnosis Note [id number] [facility] [place] [address], [place] [address] 02/21/2021 00:00:00 02/21/2021 09:58:48 [id number] [facility] [place] [address] [place] [address] 04/27/2021 00:00:00 04/29/2021 17:25:[id number] [facility] [place] [facility] [address], [place] [address] 08/16/2021 00:00:00 08/16/2021 11:20:00 [id number] [facility] [place] [address] [place] [address] 10/06/2021 00:00:00 10/16/2021 16:44:[id number] [place] tin[place]ero [facility] [place] [address] [address] 01/05/2022 00:00:00 01/05/2022 09:23:51 [id number] [facility] [place] [address] [place] [address] 01/25/2022 00:00:00 01/25/2022 12:31:[id number] [place] [address] [place] [address] 01/31/2022 00:00:00 01/31/2022 08:57:21 [id number] [facility] [place] [address] [place] [address] 03/09/2022 00:00:00 03/09/2022 11:35:42 [id number] [facility] [place] [address] [place] [address] 04/06/2022 00:00:00 04/06/2022 13:51:46 [id number] [facility] Iona tinajero [address] [place] [address] [place] [address] 08/30/2022 00:00:00 08/31/2022 08:52:00 [id number] [facility] I[place] tinajero [address] [place] [address] [place] [address] 09/19/2022 00:00:00 09/19/2022 09:59:47 [id number] [facility] [place] [address] [facility] [address] [place] [address] 10/05/2022 00:00:00 10/05/2022 13:44:52 [id number] [facility] Internal Med [place] tin[place] [address] [place] [address] [place] [address] 12/06/2022 00:00:00 12/06/2022 12:46:18 [id number] Jacinto shay MD [facility] Internal Med [place] [address] [place] [address] [place] [address] 04/09/2023 11:00:05 04/09/2023 11:49:08 Screening - NAD [id number] Z13.9 C-scope: Not doing at this time, no complaints Cologuard 01/08/2023 : Neg UTD on flu shotUTD on PCV #13, get #23Get tap/shingr ix vaccineGet COVID vaccine and its boosters RTC in 3 monthsDo labs, ER if worse, he and his did verbalize his understand ing of the above Gout 29950079 M10.9 On allopurino l 300mg daily 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 937979181 E11.9 On metformin 500mg 2 tabs bidNow on Farxiga 10mg daily Get labsKeep apt with Dr Doyle, see eye MDNot on INÉS-I, get labs may need to start in lisinopril Hyperlipidemia 96565493 E78.5 On simvastati n 40mg dailyGet labs Gastroesop hageal reflux disease without esophagitis 097197934 K21.9 On omeprazole 20mg dailyDoes well, take as needed Erectile dysfunction 860 137076 F52.21 On tadalafil, take PRN Anemia 358972531 D64.9 More iron in diet Adult heal th examination 232259781 Z00.00 Screening for disorder 213590061 Z13.9 Pain of ri ght shoulder joint 6124246461 2690256 M25.511 Get a referral to Dr Quintero [id number] Giorgio Doyle DPM [facility] Pod[facility] [place] [address] [place] [address] 04/09/2023 13:58:03 04/10/2023 10:15:38 Diabetes mellitus 59226488 E11.40 Continue per PCP recommenda tions Dystrophia unguium 82600 009 L60.3 Nails 1 through 10 were debrided with sharp mechanical debridemen t without incident. Nails were debrided and greater than 50% length and thickness where needed. Diabetic p eripheral neuropathy 087604960 E11.40 Patient educated on neuropathy , diabetes, diabetic diet, and daily foot exams. Patient is to check feet daily for new wounds, blisters, redness to prevent infection and ulceration s to the feet. Patient will return to clinic in 3 months for diabetic foot workup. [id number] FAUZIA Daley [facility] Ortho [place] 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 2789012078 73928 M19.887 [id number] Jacinto shay MD [facility] Internal Med [place] [address] [place] [address] 07/16/2023 11:26:31 07/16/2023 12:45:27 Screening - NAD 858397219 Z13.9 C-scope: Not doing at this time, no complaints Cologuard 01/08/2023 : Neg UTD on flu shotUTD on PCV #13, get #23Get tap/shingr ix vaccineGet COVID vaccine and its boosters RTC in 3 monthsDo labs, ER if worse, he and his did verbalize his understand ing of the above Gout 04696573 M10.9 On allopurino l 300mg daily 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 269627758 E11.9 On metformin 500mg 2 tabs bidOn Farxiga 10mg daily Get labsKeep apt with Dr Doyle, see eye MDNot on INÉS-I, get labs may need to start in lisinopril , not wanting this yet as he fears his BP will go low 07/16/2023 Hyperlipidemia 61703334 E78.5 On simvastati n 40mg dailyGet labs Gastroesop hageal reflux disease without esophagitis 476710491 K21.9 On omeprazole 20mg dailyDoes well, take as needed Erectile dysfunction 860 882099 F52.21 On tadalafil, take PRN Anemia 278216115 D64.9 More iron in diet Pain of ri ght shoulder joint 6644288220 9072726 M25.511 Neo Mounika 04/17/2023 Bronchitis 72257452 J40 Still has a cough, seen in UCGet on MDPCall if not better [id number] Giorgio Doyle DPM [facility] [place] [address] [place] [address] 07/16/2023 14:29:25 07/16/2023 15:07:46 Diabetic peripheral neuropathy 963047035 E11.40 Continue diabetic control per PCPCheck feet daily for wounds infectionC ontinue supportive shoe gearFollow -up in 4 months for diabetic foot care Dystrophia unguium 97444 009 L60.3 Nails 1 through 10 were debrided with sharp mechanical debridemen t without incident. Nails were debrided and greater than 50% length and thickness where needed. [id number] Jacinto shay MD [facility] Internal [facility] [place] [address] [facility] [place] [address] 09/10/2023 09:29:50 09/10/2023 10:40:49 Gastroesophageal reflux disease without esophagitis 563464531 K21.9 On omeprazole 20mg daily, can do bid, states that he has tried this and it has helped, also get an EGD doneDoes well, take as needed See case 09/06/2023 [id number] Giorgio Doyle DPM [facility] [place] [place] [address] [place] [address] 11/19/2023 14:14:02 11/20/2023 12:08:36 Diabetes mellitus 85262241 E11.40 Continue per PCP recommenda tions Diabetic p eripheral neuropathy 293896642 E11.40 control diabetes to prevent worsening neuropathy Check feet daily for wounds infection- continue supportive shoe gearContin ue supportive shoe gear 6 months for diabetic foot care [id number] Jacinto shay MD [facility] Internal Med Iona tinajero [address] [facility] [place] [address] 12/10/2023 11:01:02 12/10/2023 12:40:54 Gastroesophageal reflux disease without esophagitis 698147862 K21.9 On omeprazole 20mg daily, can do bid, states that he has tried this and it has helped, also get an EGD doneDoes well, take as needed See case 09/06/2023 Dr Brewster 10/15/2023 Screening - NAD [id number] 3 Z13.9 C-scope: Not doing at this time, no complaints Cologuard 01/08/2023 : Neg UTD on flu shotUTD on PCV #13, get #23Get tap/shingr ix vaccineGet COVID vaccine and its boostersCa n do RSV vaccine RTC in 3 monthsDo labs, ER if worse, he and his did verbalize his understand ing of the above Gout 91864571 M10.9 On allopurino l 300mg daily 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 360280953 E11.9 On metformin 500mg 2 tabs bidOn Farxiga 10mg daily Get labsKeep apt with Dr Doyle, see eye MDNot on NIÉS-I, get labs may need to start in lisinopril , not wanting this yet as he fears his BP will go low Hyperlipidemia 48594931 E78.5 On simvastati n 40mg dailyGet labs Erectile dysfunction 860 695663 F52.21 On tadalafil, take PRN Anemia 323899795 D64.9 More iron in diet Pain of ri ght shoulder joint 2762157287 2808654 M25.511 Neo Padillanadine 04/17/2023 Paroxysmal atrial fibrillation 841641647 I48.0 On ASAOn diltiazem ER 120mg dailyOn eliquis 5mg bidOn Farxiga 10mg 1/2 tabletOn ranolazine ER 500mg dailySees [facility] Dr Jaeger 10/31/2023 Unsteady when walking 22 740826 R26.89 Feels that his gait is getting worse, does use a cane, advised to use a walker and also get PT to eval and treat [id number] Fredrick Vera MD [facility] [place] [address] [place] [address] 01/02/2024 11:12:32 01/02/2024 11:58:21 Bilateral hip joint pain 2360186604 4689554 M25.551 M25.402 [id number] FAUZIA Irwin [facility] [place] [address] [place] [address] 04/03/2024 10:51:06 04/03/2024 11:31:27 Osteoarthritis of bilateral hip joints 4433518376 54818 M16.0 Pain in ri ght hip joint 9834711882 78427 M25.127 [id number] Jacinto shay MD [facility] Internal [facility] Iona tinajero [address] [facility] [address] 04/09/2024 10:26:54 04/09/2024 11:19:27 Adult health examination 290631647 Z00.00 Screening for disorder 221487364 Z13.9 Screening - NAD 14738504 3 Z13.9 C-scope: Not doing at this time, no complaints Cologuard 01/08/2023 : Neg UTD on flu shotUTD on PCV #13, get #23Get tap/shingr ix vaccineGet COVID vaccine and its boostersCa n do RSV vaccine RTC in 3 monthsDo labs, ER if worse, he and his did verbalize his understand ing of the above Gastroesop hageal reflux disease without esophagitis 539566689 K21.9 On omeprazole 20mg daily, can do bid, states that he has tried this and it has helped, also get an EGD doneDoes well, take as needed See case 09/06/2023 Dr Brewster 10/15/2023 Dr Herrera 01/23/2024 Gout 59704058 M10.9 On allopurino l 300mg daily 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 744131936 E11.9 On metformin 500mg 2 tabs bidOn Farxiga 10mg daily Get labsKeep apt with Dr Doyle, see eye MDNot on INÉS-I, get labs may need to start in lisinopril , not wanting this yet as he fears his BP will go low Hyperlipidemia 06072821 E78.5 Not on simvastati n 40mg dailyOn zetia 10mg dailyGet labs Erectile dysfunction 860 240314 F52.21 On tadalafil, take PRN Anemia 928323134 D64.9 More iron in diet Pain of ri ght shoulder joint 6254893677 5369033 M25.511 Neo Ribera 04/17/2023 Paroxysmal atrial fibrillation 391880933 I48.0 S/p d[facility] 02/04/2024 On ASAOn diltiazem ER 120mg dailyOn eliquis 5mg bidOn Farxiga 10mg 1/2 tabletOn ranolazine ER 500mg dailySees [facility] Dr Jaeger 10/31/[address] [facility] [address] Jaeger: 02/28/2024 Unsteady when walking 22 955937 R26.89 Feels that his gait is getting worse, does use a cane, advised to use a walker and also get PT to eval and treat Bilateral hip joint pain 0938901664 2794761 M25.551 M25.552 Hany Ling PA: 04/03/2024 Small boogie l obstruction 336540565 K56.609 S/p d/c, from [facility] 02/04/2024 , s/p surgery [id number] Giorgio Doyle DPM [facility] Podiatry Silvano Sequeira [address] [place] [address] 05/19/2024 10:54:37 05/20/2024 13:08:38 Diabetes mellitus 88260124 E11.40 Continue per PCP recommenda tions Dystrophia unguium 99849 009 L60.3 Nails 1 through 10 were debrided with sharp mechanical debridemen t without incident. Nails were debrided and greater than 50% length and thickness where needed. [id number] Jacinto shay MD [facility] Internal Med Iona tinajero [address] [facility] [place] [address] 07/14/2024 10:48:15 07/14/2024 12:04:38 Gastroesophageal reflux disease without esophagitis 018323990 K21.9 On omeprazole 20mg daily, can do bid, states that he has tried this and it has helped, also get an EGD doneDoes well, take as needed See case 09/06/2023 Dr Brewster 10/15/2023 Dr Herrera 01/23/2024 Screening - NAD [id number] 3 Z13.9 C-scope: Not doing at this time, no complaints Cologuard 01/08/2023 : Neg UTD on flu shotUTD on PCV #13, get #23Get tap/shingr ix vaccineGet COVID vaccine and its boostersCa n do RSV vaccine RTC in 3 monthsDo labs, ER if worse, he and his did verbalize his understand ing of the above Gout 86974529 M10.9 On allopurino l 300mg daily 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 725612563 E11.9 On metformin 500mg 2 tabs bidOn Farxiga 10mg daily Get labsKeep apt with Dr Doyle, see eye MDNot on INÉS-I, get labs may need to start in lisinopril , not wanting this yet as he fears his BP will go low Hyperlipidemia 06793621 E78.5 Not on simvastati n 40mg dailyOn zetia 10mg dailyGet labs Erectile dysfunction 860 749013 F52.21 On tadalafil, take PRN Anemia 385292265 D64.9 More iron in diet Pain of ri ght shoulder joint 7976984710 9765498 M25.511 Neo Nicholasclarissa 04/17/2023 Paroxysmal atrial fibrillation 689721498 I48.0 S/p d/c from [facility] 02/04/2024 On ASAOn diltiazem ER 120mg dailyOn eliquis 5mg bidOn Farxiga 10mg 1/2 tabletOn ranolazine ER 500mg daily [facility] Dr Jaeger: 02/28/[address] [facility] [address] Jaeger: 05/28/2024 Unsteady when walking 22 044923 R26.89 Feels that his gait is getting worse, does use a cane, advised to use a walker and also get PT to eval and treat Fall 06/11/2024 : [facility]- spine/R shoulder/B rain: negative Bilateral hip joint pain 6518530687 0497360 M25.551 M25.552 Hany Ling PA: 04/03/[address] Mccartney 07/14/2024 Small boogie l obstruction 127293206 K56.609 S/p d/c, from [facility] 02/04/2024 , s/p surgery, states 07/14/2024 is doing well today [id number] Jacinto shay MD [facility] [address] [place] [address] 10/22/2024 11:12:47 10/22/2024 12:10:00 Gastroesophageal reflux disease without esophagitis 327948509 K21.9 On omeprazole 20mg daily, can do bid, states that he has tried this and it has helped, also get an EGD doneDoes well, take as needed See case 09/06/2023 Dr Brewster 10/15/2023 Dr Herrera 01/23/2024 Screening - NAD [id number] 3 Z13.9 C-scope: Not doing at this time, no complaints Cologuard 01/08/2023 : Neg UTD on flu shotUTD on PCV #13, get #23Get tap/shingr ix vaccineGet COVID vaccine and its boostersCa n do RSV vaccine RTC in 3 monthsDo labs, ER if worse, he and his did verbalize his understand ing of the above Gout 99109103 M10.9 On allopurino l 300mg daily 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 733636768 E11.9 On metformin 500mg 2 tabs bidOn Farxiga 10mg daily Get labsKeep apt with Dr Doyle, see eye MDNot on INÉS-I, get labs may need to start in lisinopril , not wanting this yet as he fears his BP will go low Hyperlipidemia 41799124 E78.5 Not on simvastati n 40mg dailyOn zetia 10mg dailyGet labs Erectile dysfunction 860 246440 F52.21 On tadalafil, take PRN Anemia 087342569 D64.9 More iron in diet Pain of ri ght shoulder joint 5075317324 0755409 M25.511 Neo Ribera 04/17/2023 Paroxysmal atrial fibrillation 014128856 I48.0 S/p d/c from [facility] 02/04/2024 On ASAOn diltiazem ER 120mg dailyOn eliquis 5mg bidOn Farxiga 10mg 1/2 tabletOn ranolazine ER 500mg daily [facility] Dr Jaeger: 02/28/[address] Jaeger: 05/28/2024 Unsteady when walking 22 626885 R26.89 Feels that his gait is getting worse, does use a cane, advised to use a walker and also get PT to eval and treat Fall 06/11/2024 : [facility]- spine/R shoulder/B rain: negative Bilateral hip joint pain 6279326938 8410624 M25.551 M25.552 Hany Ling PA: 04/03/[address] Mccartney 07/14/2024 Ravindra hyman l obstruction 677657815 K56.609 S/p d/c, from [facility] 02/04/2024 , s/p surgery, states 07/14/2024 is doing well today Hyperkalemia 09767937 E8 7.5 Repeat the K level [id number] Jacinto shay MD [facility] Karen tinajero [address] [facility] [address] [place] [address] 11/19/2024 17:22:08 11/19/2024 18:03:46 Gastroesophageal reflux disease without esophagitis 974690325 K21.9 On omeprazole 20mg daily, can do bid, states that he has tried this and it has helped, also get an EGD doneDoes well, take as needed See case 09/06/2023 Dr Brewster 10/15/2023 Dr Herrera 01/23/2024 Screening - NAD [id number] 3 Z13.9 C-scope: Not doing at this time, no complaints Cologuard 01/08/2023 : Neg UTD on flu shotUTD on PCV #13, get #23Get tap/shingr ix vaccineGet COVID vaccine and its boostersCa n do RSV vaccine RTC in 3 monthsDo labs, ER if worse, he and his did verbalize his understand ing of the above Gout 96057377 M10.9 On allopurino l 300mg daily 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 982220466 E11.9 On metformin 500mg 2 tabs bidOn Farxiga 10mg daily Get labsKeep apt with Dr Doyle, see eye MDNot on INÉS-I, get labs may need to start in lisinopril , not wanting this yet as he fears his BP will go low Hyperlipidemia 94518237 E78.5 Not on simvastati n 40mg dailyOn zetia 10mg dailyGet labs Erectile dysfunction 860 227188 F52.21 On tadalafil, take PRN Anemia 992225305 D64.9 More iron in diet Pain of ri ght shoulder joint 8737168184 5881496 M25.511 Neo Ribera 04/17/2023 Paroxysmal atrial fibrillation 912931392 I48.0 S/p d/c from [facility] 02/04/2024 S/p d/c [facility] 11/12/2024 On ASAOn diltiazem ER 120mg dailyOn eliquis 5mg bidOn Farxiga 10mg 1/2 tabletOn ranolazine ER 500mg daily [facility] Dr Jaeger: 02/28/[address] [facility] [address] Jaeger: 05/28/2024 S/p cardiac cath 11/11/2024 , to take plavix, eliquis 5mg bid and ASA 81mg dailyNeeds to see cardiology referred 11/19/2024 and did d/w Dr Jaeger today Unsteady when walking 22 640172 R26.89 Feels that his gait is getting worse, does use a cane, advised to use a walker and also get PT to eval and treat Fall 06/11/2024 : [facility]- spine/R shoulder/B rain: negative Bilateral hip joint pain 0987082732 7190661 M25.551 M25.552 Hany Ling PA: 04/03/[address] Mccartney 07/14/2024 Ravindra hyman l obstruction 045644793 K56.609 S/p d/c, from [facility] 02/04/2024 , s/p surgery, states 07/14/2024 is doing well Hyperkalemia 06571597 E8 7.5 Repeat the K level Transition of care 12536 99700 105 Z75.8 Liver enzy mes level above reference range 420339503 R74.01 Noted in the labs from the hospitalRe peat the labs prior to next apt Health Concerns Section Related Observation LastModified by Organization Detai ls LastModified Time None Recorded Concern Status LastModified by Organization Details LastModified Time None Recorded Advance Directives Directive Y: Payers Encounter Date Sequence Insurance Name Policy Number Policy Eugene Covered Member ID Eugene Member ID Guarantor Name 04/09/2024 1 [facility] (MEDICARE REPLACEMENT/A DVANTAGE - PPO) [id number] Gene Lewis [id number] Gene Frijonathan 05/19/2024 1 [facility] (MEDICARE REPLACEMENT/A DVANTAGE - PPO) [id number] Gene Lewis [id number] Gene Frijonathan 07/14/2024 1 [facility] (MEDICARE REPLACEMENT/A DVANTAGE - PPO) [id number] Gene Lewis [id number] Gene Lewis 10/22/2024 1 [facility] (MEDICARE REPLACEMENT/A DVANTAGE - PPO) [id number] Gene Lewis [id number] Gene Yovana 11/19/2024 1 [facility] (MEDICARE REPLACEMENT/A DVANTAGE - PPO) [id number] Genecarlee Lewis [id number] Gene Lewis Notes Date Note Type Note Provider Name and Address Organization Details Recorded Time 04/09/2024 text/html OV 12/06/2022:He re to establish carePast Hx:Kaitlin emiaOAReviewed social family and surgical historyHere with his Ling, is doing well, no recent labs noted 04/09/2023:Here for his f/u apt with his , no new labs, he has c/o R shoulder pain, no acute injury, just crept up on him, he is RHD, no N/T or weakness, he is here for his MWV also OV 07/16/2023: Here for his f/u apt, he is here with his , he did do the labs on 06/28/2023, was also seen in and states his cough is clearing up but still has this OV 09/10/2023: Here for to discuss GERD, has heartburn, states that now has to take 2 omeprazole to help the heartburn, no N/V, normal appetite, no blood in stool, no weight loss OV 12/10/2023: Here for his f/u apt, he is doing well today, he is here with his , he did do the labs OV 04/09/2024: Here for his routine apt, he feels well today, s/p d/c from the hospital for SBO, s/p surgery and complicated by A.fib, he is here with his , he is also here for his MWV Jacinto Velasquez MD [address], [facility] [address], [place], [address], [employer] [facility] [employer] 04/10/2024 07:42:50 05/19/2024 text/html . 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 Patient denies no new complaints Giorgio Doyle DPM [address], [address], [place], [address], [employer] [place] 05/19/2024 11:41:09 07/14/2024 text/html OV 12/06/2022:He re to establish carePast Hx:Kaitlin Gerard social family and surgical historyHere with his Ling, is doing well, no recent labs noted 04/09/2023:Here for his f/u apt with his , no new labs, he has c/o R shoulder pain, no acute injury, just crept up on him, he is RHD, no N/T or weakness, he is here for his MWV also OV 07/16/2023: Here for his f/u apt, he is here with his , he did do the labs on 06/28/2023, was also seen in UC and states his cough is clearing up but still has this OV 09/10/2023: Here for to discuss GERD, has heartburn, states that now has to take 2 omeprazole to help the heartburn, no N/V, normal appetite, no blood in stool, no weight loss OV 12/10/2023: Here for his f/u apt, he is doing well today, he is here with his , he did do the labs OV 04/09/2024: Here for his routine apt, he feels well today, s/p d/c from the hospital for SBO, s/p surgery and complicated by A.fib, he is here with his , he is also here for his MWV OV 07/14/2024: Here for his f/u apt, he is doing well, he is here with his , he is doing well today, he did have a fall and he was seen in the ER Jacinto Velasquez MD [address] [facility], [facility] [address], [place], [address], [facility] 07/14/2024 18:21:50 10/22/2024 text/html OV 12/06/2022:He re to establish carePast Hx:Kaitlin Gerard social family and surgical historyHere with his Ling, is doing well, no recent labs noted 04/09/2023:Here for his f/u apt with his , no new labs, he has c/o R shoulder pain, no acute injury, just crept up on him, he is RHD, no N/T or weakness, he is here for his MWV also OV 07/16/2023: Here for his f/u apt, he is here with his , he did do the labs on 06/28/2023, was also seen in UC and states his cough is clearing up but still has this OV 09/10/2023: Here for to discuss GERD, has heartburn, states that now has to take 2 omeprazole to help the heartburn, no N/V, normal appetite, no blood in stool, no weight loss OV 12/10/2023: Here for his f/u apt, he is doing well today, he is here with his , he did do the labs OV 04/09/2024: Here for his routine apt, he feels well today, s/p d/c from the hospital for SBO, s/p surgery and complicated by A.fib, he is here with his , he is also here for his MWV OV 07/14/2024: Here for his f/u apt, he is doing well, he is here with his , he is doing well today, he did have a fall and he was seen in the ER OV 10/22/2024: Here for his f/u apt, he feels well, here with his , states that he is doing well, still has occasional heart burn, no other complaints Jacinto Velasquez MD [address] [place] [address] [address], [place], [address], [facility] 10/22/2024 12:32:35 11/19/2024 text/html OV 12/06/2022:He re to establish carePast Hx:GoutDMIIHLDEDAn emiaOAReviewed social family and surgical historyHere with his Ling, is doing well, no recent labs noted 04/09/2023:Here for his f/u apt with his , no new labs, he has c/o R shoulder pain, no acute injury, just crept up on him, he is RHD, no N/T or weakness, he is here for his MWV also OV 07/16/2023: Here for his f/u apt, he is here with his , he did do the labs on 06/28/2023, was also seen in UC and states his cough is clearing up but still has this OV 09/10/2023: Here for to discuss GERD, has heartburn, states that now has to take 2 omeprazole to help the heartburn, no N/V, normal appetite, no blood in stool, no weight loss OV 12/10/2023: Here for his f/u apt, he is doing well today, he is here with his , he did do the labs OV 04/09/2024: Here for his routine apt, he feels well today, s/p d/c from the hospital for SBO, s/p surgery and complicated by A.fib, he is here with his , he is also here for his MWV OV 07/14/2024: Here for his f/u apt, he is doing well, he is here with his , he is doing well today, he did have a fall and he was seen in the ER OV 10/22/2024: Here for his f/u apt, he feels well, here with his , states that he is doing well, still has occasional heart burn, no other complaints OV 11/19/2024: Here for his post hospital apt, for GERD like symptoms, but 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
--- OUTSIDE RECORDS SUMMARY | 2025-01-19 09:07 | XMS_ITS ---
Author Name [facility] [place] [facility] [place] [facility] [place] Address [address] [place] [address] Care Team Providers Care Accounts Executive Name Role Phone DARA JANICE Primary Care [...] PART B Jan 04, 2004 PART B [id number] [phone] ESAZULEMAVILMA OCHOA PATIENT MEDICARE (WNR) MEDICARE (M) PART A Aug 05, 2002 PART A [id number] VILMA LEWIS OCHOA PATIENT Selected Encounter This section includes the information on record at [place] for the Encounter. Date/Time Encounter Type Encounter Description Reason Provider Source Oct 30, 2024 02:10 PM Outpatient Encounter ADMIN PAT ACTIVTIES (MASNONCT) MATI BISHOP Encounter Template Text not used by [place] Plan of Treatment: Future Appointments (+ 6 months) and Future Tests (+/- 45 days) The Plan of Treatment section includes future care activities for the patient from all [place] treatmentfacilities. This section includes future appointments and future orders which are active, pending or scheduled. Future Appointments This section includes appointments that were scheduled to occur 6 months from the date of the Encounter, up to a maximum of 20 appointments. The data comes from all [place] treatment facilities. Appointment Date/Time Appointment Type Appointme nt Facility Name Nov 27, 2024 01:00 PM AMBULATORY - MEDICINE [facility] Feb 13, 2025 02:00 PM AMBULATORY - MEDICINE [facility] Encounter Notes: All associated encounter notes This section contains the clinical notes associated to the Encounter. Date/Time Encounter Note(s) Provider Source Oct 30, 2024 02:10 PM TELEHEALTH CONSULT : LOCAL TITLE: V15 VVC DEVICE CONSULT RESULT STANDARD TITLE: TELEHEALTH CONSULT DATE OF NOTE: OCT 30, 2024@14:10 ENTRY DATE: OCT 30, 2024@14:10:45 AUTHOR: MATI BISHOP EXP COSIGNER: URGENCY: STATUS: COMPLETED Test call has been completed. may now be scheduled for VVC appointment. No data available for: V15 Current Email Address Phone number: Enter correct contact number,if not same as above SAME ABOVE /cristiane/ MATI BISHOP Telehealth Clinical Manager Clinical Applications Signed: 10/30/2024 14:11 MATI BISHOP [facility]
--- OUTSIDE RECORDS SUMMARY | 2025-01-19 09:07 | XMS_ITS | Clinical Summary ---
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 Gender Identity Not on file Sexual Orientation Not on file Plan of Treatment Health Maintenance Due Date Last Done Comments DTaP, Tdap and Td Vaccines ( 1 - Tdap) 1956 Zoster Vaccines (1 of 2) 1987 Annual Medicare Wellness Visit 2002 Pneumococcal Vaccine: 65+ Ye ars (1 of 1 - PCV) 2002 RSV Immunization or 60+ Years (1 - 1-dose 75+ series) 2012 COVID-19 Vaccine (2023-2 5 season) 2024 Influenza Adult (#1) 2024 Meningococcal B Vaccine Aged Out No l onger eligible based on patient's age to complete this topic Meningococcal Vaccine Aged Out No yesy marielle eligible based on patient's age to complete this topic RSV Immunizations Under 20 Months Aged Out No longer eligible based on patient's age to complete this topic Insurance [facility]
--- OUTSIDE RECORDS SUMMARY | 2025-01-19 09:07 | XMS_ITS | Encounter Summary ---
Author Name [facility] [facility] [place] Address [address] [place] [address] Care Team Providers Care Application Systems Architect Name Role Phone JANICE DIAMOND Primary Care [...] PART B Jan 04, 2004 PART B [id number] VILMA LEWIS OCHOA PATIENT MEDICARE (WNR) MEDICARE (M) PART A Aug 05, 2002 PART A [id number] [phone] VILMA LEWIS PATIENT Selected Encounter This section includes the information on record at [place] for the Encounter. Date/Time Encounter Type Encounter Description Reason Provider Source Aug 14, 2024 10:30 AM OFFICE O/P EST MOD 30 MIN PRIMARY CARE/MEDICINE ICD-10-CM I48.0 Paroxysmal atrial fibrillation LIZET DIAMOND Encounter Template Text not used by [place] Assessments - Encounter Diagnoses This section includes the primary and secondary diagnoses documented for the Encounter. Date/Time Primary/Secondary Diagnosis Diagnosis Name Provider Source Aug 14, 2024 12:23 PM PRIMARY Paroxysmal atrial fibrillation PAOLO DIAMOND [facility] Aug 14, 2024 12:23 PM SECONDARY Anemia, unspecified PAOLO DIAMOND [facility] Aug 14, 2024 12:23 PM SECONDARY Gastro-esophageal reflux disease without esophagitis PAOLO DIAMOND [facility] Aug 14, 2024 12:23 PM SECONDARY Gout, unspecified PAOLO DIAMOND [facility] Aug 14, 2024 12:23 PM SECONDARY Hyperlipidemia, unspecified PAOLO DIAMOND [facility] Aug 14, 2024 12:23 PM SECONDARY Type 2 diabetes mellitus without complications PAOLO DIAMOND [facility] Aug 14, 2024 12:23 PM SECONDARY Unspecified protein-calorie malnutrition PAOLO DIAMOND [facility] Aug 14, 2024 12:23 PM SECONDARY Vitamin D deficiency, unspecified PAOLO DIAMOND [facility] Plan of Treatment: Future Appointments (+ 6 months) and Future Tests (+/- 45 days) The Plan of Treatment section includes future care activities for the patient from all [facility]. This section includes future appointments and future orders which are active, pending or scheduled. Future Appointments This section includes appointments that were scheduled to occur 6 months from the date of the Encounter, up to a maximum of 20 appointments. The data comes from all [facility]. Appointment Date/Time Appointment Type Appointme nt Facility Name Oct 27, 2024 09:00 AM AMBULATORY - MEDICINE [facility] Nov 27, 2024 01:00 PM AMBULATORY - MEDICINE [facility] Lab Results: +/- 30 days of the encounter This section includes the Chemistry and Hematology Lab Results on record with [place] for the patient. Radiology Reports and Pathology Reports are provided separately, in subsequent sections. Lab Results This section contains the Chemistry/Hematology Results that were resulted 30 days before or 30 daysafter the date of the Encounter. Date/Time Source Result Type Result - Unit Interpretation Reference Range Comment Aug 14, 2024 11:27 AM [facility] VITAMIN D, 25-HYDROXY Specimen Type: SERUM No comment entered. Ordering Provider: Cornelio DIAMOND Report Released Date/Time: Aug 14, 2024 11:07 AM Reporting Lab: [facility] [address] [facility] [address] Performing Lab: [address] [address] VITAMIN D, 25-HYDROXY 47.5 ng/mL 30-96 Aug 14, 2024 11:27 AM [facility] HGA1C Specimen Type: BLOOD No comment entered. Ordering Provider: Cornelio DIAMOND Report Released Date/Time: Aug 14, 2024 11:07 AM Reporting Lab: [address] [address] Performing Lab: [address] [address] HGA1C 6.9 H 4.0-6.0 Aug 14, 2024 11:27 AM [facility] COMPREHENSIVE METABOLIC PANEL Specimen Type: PLASMA Comment: No hemolysis noted. Ordering Provider: Cornelio DIAMOND Report Released Date/Time: Aug 14, 2024 11:07 AM Reporting Lab: [address] [address] Performing Lab: [address] [address] CREATININE 1.15 mg/dL 0.7-1.3 UREA NITROGEN 19.7 mg/dL 9.0-25.0 GLUCOSE 123 mg/dL H 72-99 SODIUM 139 meq/L 136-145 POTASSIUM 4.7 meq/L 3.5-5 CHLORIDE 102 meq/L 98-107 CARBON DIOXIDE 24 meq/L 22-31 CALCIUM 10.6 mg/dL H 8.4-10.4 PROTEIN 7.7 g/dL 6-8.6 ALBUMIN 4.5 g/dL 3.4-5 TOTAL BILIRUBIN 0.6 mg/dL 0.2-1.2 ALKALINE PHOSPHATASE 58 U/L 40-150 AST/SGOT 15 U/L 5-34 ALT/SGPT 16 U/L 8-40 EGFR (CKD-EPI 2020) 62.0 >60 Aug 14, 2024 11:27 AM [facility] CBC Specimen Type: BLOOD No comment entered. Ordering Provider: Cornelio DIAMOND Report Released Date/Time: Aug 14, 2024 11:07 AM Reporting Lab: [facility] [address] [place] [phone] Performing Lab: [facility] [address] [place] [phone] WBC 6.1 10*3/uL 3.6-11.2 RBC 5.32 10*6/uL 4.10-5.70 HGB 14.4 g/dL 13.1-16.8 HCT 46.7 38.2-48.4 MCV 87.8 fL 80.0-100.0 MCH 27.1 pg 27.0-34.0 MCHC 30.8 g/dL L 33.0-36.0 PLT 221 10*3/uL 150-400 MPV 11.8 fL H 7.5-11.2 RDW 15.2 H 11.8-15.1 LYMPHOCYTES, AUTO % 23 MONOCYTES, AUTO % 11 NEUTROPHILS, AUTO % 61 EOSINOPHILS, AUTO % 4 BASOPHILS, AUTO % 1 LYMPHOCYTES, ABSOLUTE 1.43 10*3/uL 0.77-4.50 MONOCYTES, ABSOLUTE 0.65 10*3/uL 0.19-0.80 NEUTROPHILS, ABSOLUTE 3.71 10*3/uL 2.10-8.00 EOSINOPHILS, ABSOLUTE 0.25 10*3/uL 0.00-0.60 BASOPHILS, ABSOLUTE 0.07 10*3/uL 0.00-0.20 Aug 14, 2024 11:27 AM [facility] TSH ([place]) Specimen Type: SERUM No comment entered. Ordering Provider: Cornelio DIAMOND Report Released Date/Time: Aug 14, 2024 11:07 AM Reporting Lab: [facility] [address] [place] [address] Performing Lab: [facility] [address] [place] [phone] TSH 3.238 u[IU]/mL 0.47-5 Aug 14, 2024 11:27 AM [facility] LIPID PANEL (STL) Specimen Type: PLASMA Comment: No hemolysis noted. Ordering Provider: Cornelio DIAMOND Report Released Date/Time: Aug 14, 2024 11:07 AM Reporting Lab: [facility] [address] [facility] [address] Performing Lab: [facility] [address] [facility] [address] CHOLESTEROL 168 mg/dL 0-200 TRIGLYCERIDE 79 mg/dL 0-150 CALCULATED LDL 80 mg/dL HDL(New) 72 mg/dL >40 Aug 14, 2024 10:40 AM [facility] GLUCOSE,BLOOD-poct (STL) Specimen Type: BLOOD Comment: Test Performed by: [id number] Meter #: [id number] Ordering Provider: Cornelio DIAMOND Report Released Date/Time: Aug 14, 2024 03:30 PM Reporting Lab: [facility] [address] [facility] [address] Performing Lab: [facility] [address] [facility] [address] GLUCOSE,BLOOD-po ct (STL) 118 mg/dL H 72-99 Vital Signs: All taken on the encounter date This section contains inpatient and outpatient Vital Signs collected on the date of the Encounter. Date/Time Temperature Pulse Blood Pressure Respiratory Rate SP02 Pain Height Weight Body Mass Index Source Aug 14, 2024 10:41 AM 97.5 70 102/60 18 97 0 73 157 21 [facility] Social History: Smoking Status (Most current) and Tobacco Use (All prior to encounter date) This section includes the most current, and the historical, smoking and tobacco- related health factors from the [place] facility where the Encounter took place. Current Smoking Status This section includes the most current smoking, or tobacco-related health factor, from the [place] facility where the Encounter took place. Date/Time Current Smoking Status Comment Facil ity Mar 04, 2020 03:41 PM VA-TOBACCO NEVER USED [facility] Encounter Notes: All associated encounter notes This section contains the clinical notes associated to the Encounter. Date/Time Encounter Note(s) Provider Source Aug 21, 2024 10:20 AM PHYSICIAN LETTERS: LOCAL TITLE: TEST RESULT GENERAL LETTER STL STANDARD TITLE: PHYSICIAN LETTERS DATE OF NOTE: AUG 21, 2024@10:20 ENTRY DATE: AUG 21, 2024@10:20:10 AUTHOR: JANICE DIAMOND EXP COSIGNER: URGENCY: STATUS: COMPLETED [facility] [address] [place] [address] AUG 21, 2024 GENE LEWIS [address] [place] [address] [address] [place], [place] [address] Dear Gene Lewis, I would like to update you on your recent test results. LIPID PROFILE - High cholesterol and triglycerides (lipids) are risk factors for heart disease. Your cholesterol should fall between 140 and 200, and your triglycerides levels should be less than or equal to 150. HDL is the good cholesterol and should ideally be greater than 40. LDL is the bad cholesterol and optimal levels should be less than 100 (near optimal is between 100 and 129). TRIGLYCERIDE 79 mg/dL 08/14/2024 11:27 CHOLESTEROL 168 mg/dL 08/14/2024 11:27 HDL(New) 72 mg/dL 08/14/2024 11:27 CALCULATED LDL 80 mg/dL 08/14/2024 11:27 No DIRECT LDL EO data found These readings are within normal limits. GLUCOSE - Your blood sugar or glucose level result GLUCOSE GLUCOSE 123 H mg/dL 08/14/2024 11:27 These results are abnormal. Reflective of known diabetes. HEMOGLOBIN A1C - Gives us information about your diabetes (sugar or glucose) control over the past 3 months. Your target is to keep your A1C below 8 %. HGA1C 6.9 H % 08/14/2024 11:27 These readings are within normal limits. CBC - A complete blood count (CBC) gives important information about the kinds and numbers of cells in the blood, especially red blood cells, white blood cells, and platelets. HGB 14.4 g/dL 08/14/2024 11:27 HEMATOCRIT 46.7 % (08/14/24 11:27) PLT 221 10*3/uL 08/14/2024 11:27 WHITE BLOOD COUNT 6.1 10*3/uL (08/14/24 11:27) These readings are within normal limits. CHEM 7 - This is important information about the current status of your kidneys, liver, and electrolyte and acid/base balance as well as of your blood sugar and blood proteins. SODIUM 139 mEq/L 08/14/2024 11:27 POTASSIUM 4.7 mEq/L 08/14/2024 11:27 CHLORIDE 102 mEq/L 08/14/2024 11:27 UREA NITROGEN 19.7 mg/dL 08/14/2024 11:27 CREATININE 1.15 mg/dL 08/14/2024 11:27 CALCIUM 10.6 H mg/dL 08/14/2024 11:27 CARBON DIOXIDE 24 mEq/L 08/14/2024 11:27 GLUCOSE 123 H mg/dL 08/14/2024 11:27 EGFR (CKD-EPI 2020) 62.0 08/14/2024 11:27 These readings are within normal limits. LIVER FUNCTION PANEL - These are tests for liver function: PROTEIN 7.7 g/dL 08/14/2024 11:27 ALBUMIN 4.5 g/dL 08/14/2024 11:27 TOTAL BILIRUBIN 0.6 mg/dL 08/14/2024 11:27 ALKALINE PHOSPHATASE 58 U/L 08/14/2024 11:27 AST/SGOT 15 U/L 08/14/2024 11:27 ALT/SGPT 16 U/L 08/14/2024 11:27 These readings are within normal limits. TSH - Thyroid-stimulating hormone (also known as TSH or thyrotropin) is a peptide hormone synthesized and secreted by thyrotrope cells in the anterior pituitary gland, which regulates the endocrine function of the thyroid gland. TSH TSH 3.238 uIU/mL 08/14/2024 11:27 These readings are within normal limits. VITAMIN D - Helps promote the proper utilization of calcium and phosphorus, thereby producing proper bone maintenance. VITAMIN D, 25-HYDROXY 47.5 ng/mL 08/14/2024 11:27 These readings are within normal limits. PLAN Please continue your treatment as we discussed during your visit. If you have any questions please call your director of casework department. I look forward to seeing you at your next clinic appointment. Thank you for choosing the [facility] for your healthcare. FUTURE APPOINTMENTS: 11/19/2024 14:00 - CLR PACT PHONE NUTR 02/13/2025 14:00 - CLR PACT 5 PCP Sincerely, JANICE DIAMOND, ANP- NURSE PRACTITIONER GENE LEWIS [facility] Aug 14, 2024 10:51 AM PRIMARY CARE NOTE: LOCAL TITLE: PRIMARY CARE PROVIDER ESTABLISHED VISIT [facility] STANDARD TITLE: PRIMARY CARE NOTE DATE OF NOTE: AUG 14, 2024@10:51 ENTRY DATE: AUG 14, 2024@10:51:54 AUTHOR: JANICE DIAMOND EXP COSIGNER: URGENCY: STATUS: COMPLETED REASON FOR VISIT/CHIEF COMPLAINT: Routine HPI: Vinson presents today for routine visit for chronic conditions. Following with Dr Velasquez- [facility] PCP q 3-4 months, Dr Justyn Mckeon- Counts include 234 beds at the [facility] cardiology Diabetes Mellitus Type 2: Taking metformin and Farxiga. Denies polyuria, polydipsia or polyphagia. Last A1c was 7. Had foot exam completed in May by Counts include 234 beds at the [facility] podiatry. Reports a normal diabetic eye exam this year. Hyperlipidemia: On statin and denies myalgias or myopathies. Gout: No recent flares with allopurinol GERD: Taking omeprazole and denies reflux, abdominal pain or tarry stools. Vitamin D Deficiency: Noted on prior labs and taking replacement. Paroxysmal atrial fibrillation: Taking Eliquis. No palpitations, dizziness or dyspnea. On diltiazem for rate control. iron deficiency anemia: On daily iron supplement. 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 Has gained a few lbs and feeling good about this. SOURCE(S) OF HISTORY: Patient PAST MEDICAL HISTORY: 1) Past history of procedure comment: 2006 appendectomy comment: 09/2003 right knee patellar tendon surgery with hardware placemen comment: 2018 bilateral eye cataract surgery 2) Diabetes Mellitus Type 2 ([facility] [id number]) 3) Hyperlipidemia ([facility] [id number]) 4) History of gastric ulcer 5) Gout ([facility] [id number]) 6) GERD - Gastro-Esophageal Reflux Disease ([facility] [id number]) 7) Vitamin D Deficiency ([facility] [id number]) 8) Low Back Pain ([facility] [id number]) 9) Anemia ([facility] [id number]) 10) Paroxysmal atrial fibrillation ALLERGIES: LISINOPRIL ALLERGY REVIEW: Allergy list reviewed and remains current. MEDICATIONS: Active and Recently Outpatient Medications (excluding Supplies): Active Outpatient Medications Status 1) NUTR SUPL GLUCERNA THER NUTR SHAKE STRAW TAKE 1 ACTIVE CANFUL BY MOUTH TWICE A DAY FOR NUTRITION/DIETARY SUPPLEMENTATION (SHAKE WELL) Active Non-VA Medications Status 1) Non-VA ALLOPURINOL 300MG TAB 300MG BY MOUTH ONCE A ACTIVE DAY 2) Non-VA ASPIRIN 81MG CHEW TAB 81MG BY MOUTH ONCE A DAY ACTIVE 3) Non-VA DAPAGLIFLOZIN 10MG TAB 10MG BY MOUTH ONCE A ACTIVE DAY 4) Non-VA DILTIAZEM (EQV-TIAZAC) 120MG 24HR CAP 120MG BY ACTIVE MOUTH EVERY MORNING BEFORE A MEAL 5) Non-VA FERROUS SULFATE 325MG TAB 325MG BY MOUTH ONCE ACTIVE A DAY 6) Non-VA FOLIC ACID 1MG TAB 1MG BY MOUTH ONCE A DAY ACTIVE 7) Non-VA GLUCOSAMINE CAP/TAB 2 CAPSULES BY MOUTH TWICE ACTIVE A DAY 8) Non-VA METFORMIN HCL 1000MG TAB 1000MG BY MOUTH TWICE ACTIVE A DAY WITH MEALS 9) Non-VA NON-FORMULARY TAB GLUCOCIL 1 TABLET OTC BY ACTIVE MOUTH ONCE A DAY 10) Non-VA OMEPRAZOLE 20MG EC CAP 20MG BY MOUTH EVERY ACTIVE MORNING BEFORE A MEAL 11) Non-VA RANOLAZINE 500MG SA TAB 500MG BY MOUTH TWICE A ACTIVE DAY 12) Non-VA SIMVASTATIN TAB 1 TABLET (40MG) BY MOUTH EVERY ACTIVE EVENING 13 Total Medications MEDICATION RECONCILIATION: I have reviewed the patient's medication list with the patient and/or his/her care-magnetizer. Handwritten corrections, additions and/or deletions were made to the list. Corrected Outpatient Medication List was provided to the patient/caregiver. 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: Denies dysuria, flank pain, frequency, hesitancy, urgency, or hematuria Psych: Denies depression, anxiety, insomnia, SI/HI Neuro: Denies weakness, numbness, syncope, dizziness, PÉREZ, tremors, neuropathy Skin: Denies rashes, skin lesions PHYSICAL EXAMINATION: VITALS (most recent, as listed in the electronic record): Temperature: 97.5 F [36.4 C] (08/14/2024 10:41) BP: 102/60 (08/14/2024 10:41) Pulse: 70 (08/14/2024 10:41) Resp: 18 (08/14/2024 10:41) PulsOx: 97% (08/14/2024 10:41) Pain: 0 (08/14/2024 10:41) Weight: Measurement DT WEIGHT LB(KG)[BMI] 08/14/2024 10:41 157(71.21)[21] 05/23/2024 09:12 160(72.57)[21] 02/25/2024 15:08 151.4(68.67)[20] General: pleasant, well appearing adult male in no apparent distress HEENT: mucus membranes moist, oropharynx clear, TMs normal, PERRL, EOMI Neck: supple, no lymphadenopathy or thyromegaly, no carotid bruits Heart: regular rate and rhythm; no murmurs, rubs, or gallops Lungs: respirations regular and non-labored; CTA BL; no wheezes, rhonchi, or rales Abdomen: soft, nontender, nondistended, bowel sounds normal Extremities: warm, well-perfused; no clubbing, cyanosis, or edema; 2+ PT pulses BL Skin: no rashes or lesions noted; good turgor Neuro: A&O x 3, gait steady and normal-based, CN II-XI intact Psych: appropriate mood and affect DATA REVIEW: HGA1C 7.0 H % 05/23/2024 00:00 Lipid Panel: TRIGLYCERIDE 69 mg/dL 05/07/2023 10:48 CHOLESTEROL 137 mg/dL 05/07/2023 10:48 HDL(New) 54 mg/dL 05/07/2023 10:48 CALCULATED LDL 69 mg/dL 05/07/2023 10:48 CMP: SODIUM 139 mEq/L 05/07/2023 10:48 POTASSIUM 4.2 mEq/L 05/07/2023 10:48 CHLORIDE 105 mEq/L 05/07/2023 10:48 UREA NITROGEN 20 mg/dL 05/07/2023 10:48 CREATININE 0.91 mg/dL 05/07/2023 10:48 CALCIUM 10.0 mg/dL 05/07/2023 10:48 CARBON DIOXIDE 26 mEq/L 05/07/2023 10:48 GLUCOSE 133 H mg/dL 05/07/2023 10:48 EGFR (CKD-EPI 2020) 82.6 05/07/2023 10:48 CBC: No CBC EO data found ASSESSMENT/PLAN: Diabetes Mellitus Type 2: Last A1c was 7. Repeat today and continue present regimen. Voiced interest in filling medication at [place], but he will discuss with non [facility] PCP. Hyperlipidemia: Tolerating statin. Check lipids to assess efficacy. Gout: Controlled with allopurinol. GERD: Asymptomatic. Continue PPI. Vitamin D Deficiency: Continue replacement and repeat vitamin D. Paroxysmal atrial fibrillation: In SR today. Continue Eliquis for stroke prevention. We will obtain med list and records from outside cardiology. Once received, I will placed pharmacy PA for Eliquis. iron deficiency anemia: Continue replacement and check CBC malnutrition: Weight is up 6 lbs over the last 6 months. Continue meal replacement HEALTH MAINTENANCE: CRC screen -aged out age 45 - 75 for average risk No PSA (LAST 10 5Y) EO data found age 45 - 75 for average risk- aged out ADMINISTERED Immunization Series Date Facility Reaction Info COVID-19 (MODERNA), MRNA, LNP-S,* 1 09/25/2022 [facility] COVID-19 (MODERNA), MRNA, LNP-S,* 4 03/21/2022 [facility] <C> COVID-19 (MODERNA), MRNA, LNP-S,* 3 08/29/2021 [facility] COVID-19 (MODERNA), MRNA, LNP-S,* 2 01/24/2021 No Site COVID-19 (MODERNA), MRNA, LNP-S,* 1 12/27/2020 [facility] COVID-19 (PFIZER), MRNA, LNP-S, * 6 07/21/2024 [facility] COVID-19 (PFIZER), MRNA, LNP-S, * 1 12/07/2023 [facility] COVID-19 ([employer]), MRNA, LNP-S, * 5 08/14/2023 [facility] INFLUENZA, HIGH-DOSE, QUADRIVALE* 5 09/19/2022 [facility] INFLUENZA, HIGH-DOSE, QUADRIVALE* 4 08/16/2021 [facility] INFLUENZA, HIGH-DOSE, QUADRIVALE* 3 08/16/2020 [facility] INFLUENZA, HIGH-DOSE, TRIVALENT,* 1 08/11/2024 [facility] INFLUENZA, HIGH-DOSE, TRIVALENT,* 2 09/15/2019 [facility] INFLUENZA, HIGH-DOSE, TRIVALENT,* 1 08/20/2018 [facility] INFLUENZA, UNSPECIFIED FORMULATI* C [facility] INFLUENZA, UNSPECIFIED FORMULATI* [facility] INFLUENZA, UNSPECIFIED FORMULATI* C 09/19/2022 [facility] C* INFLUENZA, UNSPECIFIED FORMULATI* GATEWAY R* INFLUENZA, UNSPECIFIED FORMULATI* PCP PNEUMOCOCCAL CONJUGATE PCV 13 09/15/2019 No Site <C> PNEUMOCOCCAL CONJUGATE PCV20, PO* C 09/25/2022 [facility] PNEUMOCOCCAL POLYSACCHARIDE PPV23 C 02/20/2023 [facility] PNEUMOCOCCAL POLYSACCHARIDE PPV23 09/15/2019 No Site RESPIRATORY SYNCYTIAL VIRUS (RSV* C 12/07/2022 No Site RSV, RECOMBINANT, PROTEIN SUBUNI* 1 12/07/2023 [facility] TDAP C 03/28/2021 [facility]* ZOSTER RECOMBINANT 2 03/21/2022 [facility]* ZOSTER RECOMBINANT 1 03/21/2021 [facility]* CONTRAINDICATED No data available REFUSED ======= No data available <C> See the Detailed Immunizations Health Summary Component[DIM] for Comments * Value is truncated; see the Detailed Immunizations Health Summary Component[DIM] for complete text Return to clinic 6 months and sooner PRN SUMMARY STATEMENT: Plan of care has been discussed with including expected therapeutic benefits and potential side effects of prescribed medication and treatments. Vinson verbalizes understanding and is in agreement with the plan of care. Patient was instructed to keep all scheduled appointments and contact inventory specialist manager for any additional problems. /cristiane/ UNA MARS NURSE PRACTITIONER Signed: 08/14/2024 12:23 JANICE DIAMOND [facility] Aug 14, 2024 10:44 AM NURSING NOTE: LOCAL TITLE: V15 PACT FACE TO FACE NOTE STL STANDARD TITLE: NURSING NOTE DATE OF NOTE: AUG 14, 2024@10:44 ENTRY DATE: AUG 14, 2024@10:44:36 AUTHOR: INDER MENA COSIGNER: URGENCY: STATUS: COMPLETED V15 PACT FACE TO FACE NOTE STL Has ADDENDA Provider Visit: Patient Identifiers : Full Name Date of Reason for visit: Established Follow-Up 88 YR OLD MALE. Pt is alert and ambulatory with a walker. Pt is here for a routine visit and states he had a bowel resection at [facility] January of 2024. Pt has a script Farxiga 10md 1 x daily and Eliquis 5mg 2x daily and [facility] Mode of Arrival: Assistive Device: walker Allergy Review: LISINOPRIL Allergy list reviewed and remains current. Recent Vital Signs: Temperature: 97.5 F [36.4 C] (08/14/2024 10:41) Pulse: 70 (08/14/2024 10:41) Respiration: 18 (08/14/2024 10:41) B/P: 102/60 (08/14/2024 10:41) Pain: 0 (08/14/2024 10:41) Wt: 157 lb [71.21 kg] (08/14/2024 10:41) Ht: 73 in [185.4 cm] (08/14/2024 10:41) BMI: 20.8 POX: 97% (08/14/2024 10:41) Blood sugar glucometer readin Would you like to discuss any personal problem, family problem, alcohol use, drug use, or a mental or emotional illness? No My [facility] ([facility]), please select appointment type: Face to face: Yes-Do you have an upgraded (Premium) account which gives you the added benefit of Secure Messaging with your Primary Care Provider and refilling your prescriptions online? Contact provided Primary Care phone number and encouraged to call if any questions or concerns. Review that after hours nurse line [phone] and emergency room are available 28/05 for patient use. Contact verbalized good understanding. Sexual Orientation: The patient thinks of their sexual orientation as: Straight or Heterosexual Depression Screening: Perform PHQ-2 A PHQ-2 screen was performed. The score was 0 which is a negative screen for depression. Over the past two weeks, how often have you been bothered by the following problems? 1. Little interest or pleasure in doing things Not at all 2. Feeling down, depressed, or hopeless Not at all Frail/Elderly Screen: Incontinence Screen: No incontinence. PAVE Foot Check: Patient indicates foot exam (including monofilament test for sensation) was performed in the past year in the private sector: Date: February, ? Exact date is unknown Result: Normal /cristiane/ INDER MENA Licensed Practical Nurse Signed: 08/14/2024 10:51 08/14/2024 ADDENDUM STATUS: COMPLETED prepared a request for progress notes and current medication list /es/ YUVAL DAS, RN, BSN Registered Nurse Signed: 08/14/2024 11:50 INDER MENA [facility]
[2025-01-19 09:21] LABS: Basophils Absolute Auto 0.1 K/mm3 (0.0-0.1); Basophils Percent Auto 1.1 % (0.2-1.2); Eosinophils Absolute Auto 0.2 K/mm3 (0-0.3); Eosinophils Percent Auto 3.6 % (0-4.4); Hematocrit 40.4 % (42.0-52.0); Hemoglobin 12.5 g/dL (14.0-18.0); Immature Granulocyte Absolute 0.02 K/mm3 (0.00-0.031); Immature Granulocyte Percent A 0.3 % (0-0.5); Lymphocytes Absolute Auto 1.56 K/mm3 (0.9-3.2); Lymphocytes Percent Auto 24.6 % (18.3-44.2); Mean Corpuscular HGB Conc 30.9 g/dl (32-36); Mean Corpuscular Hemoglobin 28.2 pg (26-34); Mean Platelet Volume 10.6 fl (7.4-10.4); Monocytes Absolute Auto 0.9 K/mm3 (0.1-0.6); Monocytes Percent Auto 14.2 % (2.6-8.5); Neutrophils Absolute Auto 3.6 K/mm3 (1.3-6.7); Neutrophils Percent Auto 56.2 % (45.5-73.1); Platelet Count Result 176 k/mm3 (150-375); Red Blood Count 4.44 M/mm3 (4.6-6.20); White Blood Count 6.4 K/mm3 (4.5-10.0)
[2025-01-19 09:56] LABS: Alanine Aminotransferase 68 U/L (6-50); Albumin Level 4.2 g/dL (3.5-5.1); Alkaline Phosphatase 121 U/L (38-126); Anion Gap 11 mmol/L (4-12); Aspartate Amino Transferase 38 U/L (17-59); Blood Urea Nitrogen 27 mg/dL (9-20); Calcium 9.9 mg/dL (8.4-10.2); Carbon Dioxide 27 mmol/L (22-30); Chloride 102 mmol/L (98-107); Cholesterol 103 mg/dL (0-200); Estimated Glomerular Filt Rate 58; Glucose 166 mg/dL (65-110); HDL Direct 58 mg/dL; Potassium 4.1 mmol/L (3.4-5.0); Sodium 140 mmol/L (137-145); Triglycerides 66 mg/dL (<150)
[2025-01-19 10:48] LABS: LDL Cholesterol Direct < 30 mg/dL
[2025-01-19 11:01] LABS: Free T4 Free Thyroxine 1.33 ng/dL (0.78-2.19)
[2025-01-19 11:11] LABS: Creatinine Urine 83.8 mg/dL
[2025-01-19 11:23] LABS: Hemoglobin A1C 6.9 % (<5.7)
[2025-01-19 11:27] LABS: MALB Creatinine Ratio < 7.2 mg/g (0-30); Microalbumin Urine Random < 6.0 mg/L (0-16.7)
== END 2025-01-19 08:41 | disposition home or self-care (01) ==
PROVIDERS: PCP Internal Medicine; Visit Provider Internal Medicine
DX: E11.9 Type 2 diabetes mellitus without complications (principal); E78.5 Hyperlipidemia, unspecified; E87.5 Hyperkalemia
CPT/HCPCS: 36415; 80053; 80061; 82043; 83036; 84439; 84443; 85025

== ENCOUNTER 2025-01-27 12:51 | Outpatient (CLI) | payer MEDICARE, SELFPAY ==
--- NOTE | ~2025-01-27 | US_ITS ---
US right upper quadrant INDICATION: Elevated liver transaminase levels. PROCEDURE: Realtime right upper abdominal ultrasound. COMPARISON: CT dated 01/21/2024 FINDINGS: The pancreas is normal without focal mass or pancreatic ductal dilation. There are multipl e liver cysts. No solid liver masses are seen. There is normal directional flow in the portal vein. There is a slightly hyperechoic gallbladder mass measuring 3.2 x 2.9 x 2 cm with internal vascularity , suspicious for gallbladder carcinoma until proven otherwise. Common bile duct measures 4 mm mm. N o sonographic Christie's sign. 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 Reviewed, dictated and finalized at location A.
== END 2025-01-27 12:52 | disposition home or self-care (01) ==
PROVIDERS: PCP Internal Medicine; Visit Provider Internal Medicine
DX: K82.9 Disease of gallbladder, unspecified (principal); R74.01 Elevation of levels of liver transaminase levels
CPT/HCPCS: 76705

== ENCOUNTER 2025-04-01 08:44 | Outpatient (CLI) | payer MEDICARE, SELFPAY ==
--- OUTSIDE RECORDS SUMMARY | 2025-04-01 08:48 | XMS_ITS ---
Author Name [facility] [place] Organization [facility] [place] Address [address] [place] [address] Care Team Providers Care Dermatology Nurse Name Role Phone KALEE, ANNIE Primary Care Provider Unavailabl e Insurance Providers: All historical and current Section [...] PART B Jan 04, 2004 PART B [id number] ESAZULEMAVILMA OCHOA PATIENT MEDICARE (WNR) MEDICARE (M) PART A Aug 05, 2002 PART A [id number] [phone] VILMA LEWIS OCHOA PATIENT Selected Encounter This section includes the information on record at [place] for the Encounter. Date/Time Encounter Type Encounter Description Reason Provider Source Feb 13, 2025 02:00 PM OFFICE O/P EST MOD 30 MIN PRIMARY CARE/MEDICINE ICD-10-CM E11.9 Type 2 diabetes mellitus without complications LIZET DIAMOND Encounter Template Text not used by [place] Assessments - Encounter Diagnoses This section includes the primary and secondary diagnoses documented for the Encounter. Date/Time Primary/Secondary Diagnosis Diagnosis Name Provider Source Feb 13, 2025 03:11 PM PRIMARY Type 2 diabetes mellitus without complications PAOLO DIAMOND [facility] Feb 13, 2025 03:11 PM SECONDARY Anemia, unspecified PAOLO DIAMOND [facility] Feb 13, 2025 03:11 PM SECONDARY Gastro-esophageal reflux disease without esophagitis PAOLO DIAMOND [facility] Feb 13, 2025 03:11 PM SECONDARY Gout, unspecified PAOLO DIAMOND [facility] Feb 13, 2025 03:11 PM SECONDARY Hyperlipidemia, unspecified PAOLO DIAMOND [facility] Feb 13, 2025 03:11 PM SECONDARY Paroxysmal atrial fibrillation PAOLO DIAMOND [facility] Feb 13, 2025 03:11 PM SECONDARY Vitamin D deficiency, unspecified PAOLO DIAMOND [facility] Lab Results: +/- 30 days of the encounter This section includes the Chemistry and Hematology Lab Results on record with [place] for the patient. Radiology Reports and Pathology Reports are provided separately, in subsequent sections. Lab Results This section contains the Chemistry/Hematology Results that were resulted 30 days before or 30 daysafter the date of the Encounter. Date/Time Source Result Type Result - Unit Interpretation Reference Range Specimen Type Comment Feb 13, 2025 01:50 PM [facility] GLUCOSE,BLOOD-poct (STL) BLOOD Specimen Type: BLOOD Comment: Test Performed by: [id number] Meter #: [id number] Ordering Provider: JANICE DIAMOND Report Released Date/Time: Feb 13, 2025 03:30 PM Reporting Lab: [facility] [address] [facility] [id number] Performing Lab: [place] [id number] [facility] [id number] GLUCOSE,BLOOD-poct (STL) 270 mg/dL H 72-99 Vital Signs: All taken on the encounter date This section contains inpatient and outpatient Vital Signs collected on the date of the Encounter. Date/Time Temperature Pulse Blood Pressure Respiratory Rate SP02 Pain Height Weight Body Mass Index Source Feb 13, 2025 01:47 PM 97.7 65 113/63 20 99 0 160 21 [facility] Social History: Smoking Status (Most current) and Tobacco Use (All prior to encounter date) This section includes the most current, and the historical, smoking and tobacco- related health factors from the [place] facility where the Encounter took place. Current Smoking Status This section includes the most current smoking, or tobacco-related health factor, from the [place] facility where the Encounter took place. Date/Time Current Smoking Status Comment Facil ity Mar 04, 2020 03:41 PM VA-TOBACCO NEVER USED [facility] Encounter Notes: All associated encounter notes This section contains the clinical notes associated to the Encounter. Date/Time Encounter Note(s) Provider Source Feb 13, 2025 02:13 PM PRIMARY CARE NOTE: LOCAL TITLE: PRIMARY CARE PROVIDER ESTABLISHED VISIT [facility] STANDARD TITLE: PRIMARY CARE NOTE DATE OF NOTE: FEB 13, 2025@14:13 ENTRY DATE: FEB 13, 2025@14:13:51 AUTHOR: JANICE DIAMOND EXP COSIGNER: URGENCY: STATUS: COMPLETED REASON FOR VISIT/CHIEF COMPLAINT: Routine HPI: [place] presents today for routine visit for chronic conditions. Following with Dr Velasquez- Non [place] PCP q 3-4 months, Dr Justyn Mckeon- [facility] cardiology Diabetes Mellitus Type 2: Taking Farxiga. Metformin was discontinued by his gas meter mechanic and he is unsure why. Denies polyuria, polydipsia or polyphagia. Last A1c was 7. Had foot exam completed in May by non [place] podiatry. Reports a normal diabetic eye exam this year. Hyperlipidemia: On statin and denies myalgias or myopathies. Gout: No recent flares with allopurinol GERD: Taking omeprazole and denies reflux, abdominal pain or tarry stools. Vitamin D Deficiency: Noted on prior labs and taking replacement. Paroxysmal atrial fibrillation: Taking Eliquis. No palpitations, dizziness or dyspnea. On metoprolol for rate control. iron deficiency anemia: On daily iron supplement. malnutrition: Following with dietary assistant and supplementing diet with Glucerna. Has gained a few lbs and feeling good about this. SOURCE(S) OF HISTORY: Patient PAST MEDICAL HISTORY: 1) Past history of procedure comment: 2005 appendectomy comment: 09/2003 right knee patellar tendon surgery with hardware placemen comment: 2018 bilateral eye cataract surgery 2) Diabetes Mellitus Type 2 ([facility] [id number]) 3) Hyperlipidemia ([facility] [id number]) 4) History of gastric ulcer 5) Gout ([facility] [id number]) 6) GERD - Gastro-Esophageal Reflux Disease ([facility] [id number]) 7) Vitamin D Deficiency ([facility] [id number]) 8) Low Back Pain ([facility] [id number]) 9) Anemia ([facility] [id number]) 10) Paroxysmal atrial fibrillation ALLERGIES: LISINOPRIL ALLERGY REVIEW: Allergy list reviewed and remains current. MEDICATIONS: Active and Recently Outpatient Medications (excluding Supplies): Active Outpatient Medications Status 1) NUTR SUPL GLUCERNA SHAKE LIQ STRAWBERRY TAKE 1 CANFUL BY ACTIVE MOUTH TWICE A DAY (SHAKE WELL) Indication: FOR NUTRITION/DIETARY SUPPLEMENTATION Active Non-VA Medications Status 1) Non-VA ALLOPURINOL 300MG TAB 300MG BY MOUTH ONCE A DAY ACTIVE 2) Non-VA ASPIRIN 81MG CHEW TAB 81MG BY MOUTH ONCE A DAY ACTIVE 3) Non-VA DAPAGLIFLOZIN 10MG TAB 10MG BY MOUTH ONCE A DAY ACTIVE 4) Non-VA DILTIAZEM (EQV-TIAZAC) 120MG 24HR CAP 120MG BY MOUTH ACTIVE EVERY MORNING BEFORE A MEAL 5) Non-VA FERROUS SULFATE 325MG TAB 325MG BY MOUTH ONCE A DAY ACTIVE 6) Non-VA FOLIC ACID 1MG TAB 1MG BY MOUTH ONCE A DAY ACTIVE 7) Non-VA GLUCOSAMINE CAP/TAB 2 CAPSULES BY MOUTH TWICE A DAY ACTIVE 8) Non-VA METFORMIN HCL 1000MG TAB 1000MG BY MOUTH TWICE A DAY ACTIVE WITH MEALS 9) Non-VA NON-FORMULARY TAB GLUCOCIL 1 TABLET OTC BY MOUTH ONCE ACTIVE A DAY 10) Non-VA OMEPRAZOLE 20MG EC CAP 20MG BY MOUTH EVERY MORNING ACTIVE BEFORE A MEAL 11) Non-VA RANOLAZINE 500MG SA TAB 500MG BY MOUTH TWICE A DAY ACTIVE 12) Non-VA SIMVASTATIN TAB 1 TABLET (40MG) BY MOUTH EVERY ACTIVE EVENING 13 Total Medications MEDICATION RECONCILIATION: I have reviewed the patient's medication list with the patient and/or his/her care-campus wellness coordinator. Handwritten corrections, additions and/or deletions were made [...] swelling/stiffness/pain, back pain, neck pain and edema /BLACK PICKLER: Denies dysuria, flank pain, frequency, hesitancy, urgency, or hematuria Psych: Denies depression, anxiety, insomnia, SI/HI Neuro: Denies weakness, numbness, syncope, dizziness, PÉREZ, tremors, neuropathy Skin: Denies rashes, skin lesions PHYSICAL EXAMINATION: VITALS (most recent, as listed in the electronic record): Temperature: 97.7 F [36.5 C] (02/13/2025 13:47) BP: 113/63 (02/13/2025 13:47) Pulse: 65 (02/13/2025 13:47) Resp: 20 (02/13/2025 13:47) PulsOx: 99% (02/13/2025 13:47) Pain: 0 (02/13/2025 13:47) Weight: Measurement DT WEIGHT LB(KG)[BMI] 02/13/2025 13:47 160(72.57)[21] 08/14/2024 10:41 157(71.21)[21] 05/23/2024 09:12 160(72.57)[21] General: pleasant, well appearing adult male in [...] clubbing, cyanosis, or edema; 2+ PT pulses BL, see PAVE exam Skin: no rashes or lesions noted; good turgor Neuro: A&O x 3, gait steady and normal-based, CN II-XI intact Psych: appropriate mood and affect DATA REVIEW: HGA1C 6.9 H % 08/14/2024 11:27 Lipid Panel: TRIGLYCERIDE 79 mg/dL 08/14/2024 11:27 CHOLESTEROL 168 mg/dL 08/14/2024 11:27 HDL(New) 72 mg/dL 08/14/2024 11:27 CALCULATED LDL 80 mg/dL 08/14/2024 11:27 CMP: SODIUM 139 mEq/L 08/14/2024 11:27 POTASSIUM 4.7 mEq/L 08/14/2024 11:27 CHLORIDE 102 mEq/L 08/14/2024 11:27 UREA NITROGEN 19.7 mg/dL 08/14/2024 11:27 CREATININE 1.15 mg/dL 08/14/2024 11:27 CALCIUM 10.6 H mg/dL 08/14/2024 11:27 PROTEIN 7.7 g/dL 08/14/2024 11:27 ALBUMIN 4.5 g/dL 08/14/2024 11:27 ALKALINE PHOSPHATASE 58 U/L 08/14/2024 11:27 ALT/SGPT 16 U/L 08/14/2024 11:27 AST/SGOT 15 U/L 08/14/2024 11:27 TOTAL BILIRUBIN 0.6 mg/dL 08/14/2024 11:27 CARBON DIOXIDE 24 mEq/L 08/14/2024 11:27 GLUCOSE 123 H mg/dL 08/14/2024 11:27 EGFR (CKD-EPI 2020) 62.0 08/14/2024 11:27 CBC: WBC 6.1 10*3/uL 08/14/2024 11:27 RBC 5.32 10*6/uL 08/14/2024 11:27 HGB 14.4 g/dL 08/14/2024 11:27 HCT 46.7 % 08/14/2024 11:27 MCV 87.8 fL 08/14/2024 11:27 MCH 27.1 pg 08/14/2024 11:27 MCHC 30.8 L g/dL 08/14/2024 11:27 RDW 15.2 H % 08/14/2024 11:27 PLT 221 10*3/uL 08/14/2024 11:27 MPV 11.8 H fL 08/14/2024 11:27 NEUTROPHILS, AUTO % 61 % 08/14/2024 11:27 LYMPHOCYTES, AUTO % 23 % 08/14/2024 11:27 MONOCYTES, AUTO % 11 % 08/14/2024 11:27 EOSINOPHILS, AUTO % 4 % 08/14/2024 11:27 BASOPHILS, AUTO % 1 % 08/14/2024 11:27 NEUTROPHILS, ABSOLUTE 3.71 10*3/uL 08/14/2024 11:27 LYMPHOCYTES, ABSOLUTE 1.43 10*3/uL 08/14/2024 11:27 MONOCYTES, ABSOLUTE 0.65 10*3/uL 08/14/2024 11:27 EOSINOPHILS, ABSOLUTE 0.25 10*3/uL 08/14/2024 11:27 BASOPHILS, ABSOLUTE 0.07 10*3/uL 08/14/2024 11:27 PSA: No PSA EO data found Result: Acceptable Follow-up Action: labs ordered___ Data results reviewed with patient and/or caregiver. ASSESSMENT/PLAN: Diabetes Mellitus Type 2: Last A1c was 6.9 Continue Farxiga. PAVE exam completed. He will update labs with non VA provider next month Hyperlipidemia: Tolerating statin. Check lipids to assess efficacy. Gout: Controlled with allopurinol. GERD: Asymptomatic. Continue PPI. Vitamin D Deficiency: Continue replacement and repeat vitamin D. Paroxysmal atrial fibrillation: In SR today. Continue Eliquis for stroke prevention. iron deficiency anemia: Continue replacement and check CBC malnutrition: Weights are stable. Continue meal supplementation. HEALTH MAINTENANCE: CRC screen -aged out age 45 - 75 for average risk No PSA (LAST 10 5Y) EO data found age 45 - 75 for average risk ADMINISTERED Immunization Series Date Facility Reaction Info COVID-19 (MODERNA), MRNA, LNP-S,* 1 09/25/2022 [facility] COVID-19 (MODERNA), MRNA, LNP-S,* 4 03/21/2022 [facility] <[facility]> COVID-19 (MODERNA), MRNA, LNP-S,* 3 08/29/2021 [facility] COVID-19 (MODERNA), MRNA, LNP-S,* 2 01/24/2021 [facility] COVID-19 (MODERNA), MRNA, LNP-S,* 1 12/27/2020 [facility] COVID-19 (PFIZER), MRNA, LNP-S, * 6 07/21/2024 [facility] COVID-19 (PFIZER), MRNA, LNP-S, * 1 12/07/2023 [facility] COVID-19 (PFIZER), MRNA, LNP-S, * 5 08/14/2023 [facility] [...] side effects of prescribed medication and treatments. verbalizes understanding and is in agreement with the plan of care. Patient was instructed to keep all scheduled appointments and contact progressive assembler and fitter for any additional problems. /cristiane/ UNA MARS NURSE PRACTITIONER Signed: 02/13/2025 15:11 JANICE DIAMOND [facility] Feb 13, 2025 01:52 PM NURSING NOTE: LOCAL TITLE: V15 PACT FACE TO FACE NOTE STL STANDARD TITLE: NURSING NOTE DATE OF NOTE: FEB 13, 2025@13:52 ENTRY DATE: FEB 13, 2025@13:52:33 AUTHOR: TERRANCE SALCEDO COSIGNER: URGENCY: STATUS: COMPLETED Provider Visit: Patient Identifiers : Full Name Date of Reason for visit: Established Follow-Up Mode of Arrival: Ambulatory Allergy Review: LISINOPRIL Allergy list reviewed and remains current. Recent Vital Signs: Temperature: 97.7 F [36.5 C] (02/13/2025 13:47) Pulse: 65 (02/13/2025 13:47) Respiration: 20 (02/13/2025 13:47) B/P: 113/63 (02/13/2025 13:47) Pain: 0 (02/13/2025 13:47) Wt: 160 lb [72.57 kg] (02/13/2025 13:47) Ht: 73 in [185.4 cm] (08/14/2024 10:41) BMI: 21.2 POX: 99% (02/13/2025 13:47) Blood sugar glucometer readin PERSONAL HEALTH INVENTORY Notes: No data available for PHI note titles PERSONAL HEALTH INVENTORY - MAP: 09/20/2021 Personal Health Plan [place], [place], Purpose (MAP) I like to garden What matters most to you in your life right now? -- [place]'s Response: GOOD HEALTH Would you like to discuss any personal problem, family problem, alcohol use, drug use, or a mental or emotional illness? No My [facility] ([facility]), please select appointment type: Face to face: Yes-Do you have an upgraded (Premium) account which gives you the added benefit of Secure Messaging with your Primary Care Provider and refilling your prescriptions online? Yes- Done Contact provided Primary Care phone number and encouraged to call if any questions or concerns. Review that after hours nurse line [phone] and emergency room are available 28/05 for patient use. Contact verbalized good understanding. Alcohol Use Screen (AUDIT-C) - V: Alcohol Screen: SCREEN FOR ALCOHOL (AUDIT-C) An alcohol screening test (AUDIT-C) was negative (score=0). 1. How often did you have a drink containing alcohol in the past year? Consider a drink to be a 12 ounce can or bottle of regular beer, 8 ounces of malt liquor, a 5 ounce glass of table wine, or a 1.5 ounce shot of liquor (like scotch, gin, or vodka). Never 2. How many drinks containing alcohol did you have on a typical day when you were drinking in the past year? Response not required due to responses to other questions. 3. How often did you have six or more drinks on one occasion in the past year? Response not required due to responses to other questions. Homelessness/Food Insecurity Screen - DI,L,N,P,PH,PS,S,U: In the past 2 months, have you been living in stable housing that you own, rent, or stay in as part of a household? Yes - Living in stable housing. Are you worried or concerned that in the next 2 months you may NOT have stable housing that you own, rent, or stay in as part of a household? No - Not worried about housing near future The [place] reports the following: Within the past 12 months, you worried whether your food would run out before you got money to buy more. Never true Within the past 12 months, the food you bought just didn't last and you didn't have money to get more. Never true PTSD Screening - V: PC-PTSD-5 A PTSD screening test (PC-PTSD-5) was negative (score=0). IN THE PAST MONTH, have you ever had any experience that was so frightening, horrible or traumatic. For example: A serious accident or fire a physical or sexual assault or abuse An earthquake or flood A war Seeing someone be killed or seriously injured Having a loved one through homicide or suicide 1. Have you ever experienced this kind of event? NO 2. Had nightmares about the event(s) or thought about the event(s) when you did not want to? Response not required due to responses to other questions. 3. Tried hard not to think about the event(s) or went out of your way to avoid situations that reminded you of the event(s)? Response not required due to responses to other questions. 4. Been constantly on guard, watchful, or easily startled? Response not required due to responses to other questions. 5. [place] numb or detached from people, activities, or your surroundings? Response not required due to responses to other questions. 6. [place] guilty or unable to stop blaming yourself or others for the event(s) or any problems the event(s) may have caused? Response not required due to responses to other questions. /cristiane/ TERRANCE SALCEDO LICENSED PRACTICAL NURSE Signed: 02/13/2025 14:01 TERRANCE SALCEDO [facility]
--- OUTSIDE RECORDS SUMMARY | 2025-04-01 08:49 | XMS_ITS | Referral Summary ---
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 Gender Identity Not on file Sexual Orientation Not on file Plan of Treatment Not on file Procedures Procedure Name Priority Date/Time Associated Diagnosis Comments EGFR Routine 10/17/2024 8:30 AM [employer]INA SALES AND SERVICE SUPERVISOR Diabetes mellitus without complication (HCC) HEMOGLOBIN A1C Routine 10/17/2024 8:30 AM [employer]INA SALES AND SERVICE SUPERVISOR Diabetes mellitus without complication (HCC) LIPID PANEL Routine 10/17/2024 8:30 AM [employer]INA SALES AND SERVICE SUPERVISOR Diabetes mellitus without complication (HCC) ALBUMIN CREATININE RATIO, URINE Routine 10/17/2024 8:30 AM MARINA SALES AND SERVICE SUPERVISOR Diabetes mellitus without complication (HCC) from Last 3 Months or Most Recently Relevant to Health Maintenance Results * eGFR (10/17/2024 8:30 AM MARINA SALES AND SERVICE SUPERVISOR) eGFR 65 >=60 mL/min/1. 73 m2 Comment: [...] last reviewed 2021. Blood 10/17/2024 8:30 AM MARINA SALES AND SERVICE SUPERVISOR 10/17/2024 8:17 PM MARINA SALES AND SERVICE SUPERVISOR Jossie Velasquez MD LAB BLOOD ORDERABLES Final Result Performing Organization Address [facility] Co de Phone Number CHRISTEN PHILLIPS [address] [place] [address] * Albumin Creatinine Ratio, Urine (10/17/2024 8:30 AM MARINA SALES AND SERVICE SUPERVISOR) Albumin Ur <12.0 mg/L Comment: Interpretive Data No reference range established. Current interpretive data was last revised 2019. Creatinine Ur 107.9 mg/dL CHRISTEN Comment: Interpretive Data No reference range established. Current interpretive data was last revised 2019. Albumin Creatinine Ratio, Ur <11 1 - 29 mg/g CHRISTEN Urine (Urine, Clean Catch) 10/17/2024 8:30 AM MARINA SALES AND SERVICE SUPERVISOR 10/17/2024 8:01 PM MARINA SALES AND SERVICE SUPERVISOR Narrative CHRISTEN - 10/17/2024 8:54 PM MARINA SALES AND SERVICE SUPERVISOR FAX RESULTS [phone] JACINTO VELASQUEZ Jossie Velasquez MD LAB URINE ORDERABLES Final Result Performing Organization Address [facility] Co de Phone Number CHRISTEN PHILLIPS [address] [place] [address] * (ABNORMAL) Hemoglobin A1c (10/17/2024 8:30 AM MARINA SALES AND SERVICE SUPERVISOR) Hgb A1C 6.7(H) 4.0 - 5.6 % Estimated Average Glucose 146 mg/dL CHRISTEN PHILLIPS Comment: The ADA recommends reporting an estimated Average Glucose (eAG) with all Hemoglobin A1c results using the equation derived from a study of 507 normal and diabetic adults. Minority populations were underrepresented and children were not included. (Diabetes Care 31:3341-2789, 2008). The eAG is not equivalent to a fasting glucose. Blood Venous blood specimen / Unknown 10/17/2024 8:30 AM MARINA SALES AND SERVICE SUPERVISOR 10/17/2024 8:01 PM MARINA SALES AND SERVICE SUPERVISOR Narrative CHRISTEN PHILLIPS - 10/17/2024 8:35 PM [employer]INA SALES AND SERVICE SUPERVISOR FAX RESULTS [phone] JACINTO VELASQUEZ Jossie Velasquez MD LAB BLOOD ORDERABLES Final Result CHRISTEN PHILLIPS [address] Department [place] [address] * Lipid panel (10/17/2024 8:30 AM MARINA SALES AND SERVICE SUPERVISOR) Cholesterol 155 30 - 199 mg/dL Comment: [...] NCEP Expert Panel. Circulation 2004;110:227 3. Kvng Johnson al. JOSE Cardiol. 2020 March 05;5(5):540-548. doi: [...] revised on 2018. Chol/HDL ratio 2 CHRISTEN CH Blood Venous blood specimen / Unknown 10/17/2024 8:30 AM MARINA SALES AND SERVICE SUPERVISOR 10/17/2024 8:01 PM MARINA SALES AND SERVICE SUPERVISOR Narrative JESÚSNER CH - 10/17/2024 8:41 PM MARINA SALES AND SERVICE SUPERVISOR FAX RESULTS [phone] JACINTO VELASQUEZ Jossie Velasquez MD LAB BLOOD ORDERABLES Final Result CHRISTEN [address] Department [place] [address] from Last 3 Months or Most Recently Relevant to Health Maintenance Insurance [facility] [place] [address] [facility] [place] [address] Care Teams Rpg Programmer Analyst Relationship Specialty Start Date End Date Phoebe Jaquez NP PCP - General Nurse Practitioner 11/24/19
--- OUTSIDE RECORDS SUMMARY | 2025-04-01 08:49 | XMS_ITS | Continuity of Care Document ---
Author Name [facility] Organization [facility] Care Team Providers Care Digital Imaging Specialist Name Role Phone [facility] Unavailable Unavailable Problems Combined list of problems from Department of Defense and [facility] Affairs facilities. It does not include entries that were removed or entered in error. Problem Status Onset Date Problem Type Date of Resolution Comments Source Anemia ([facility] [id number]) Active Condition [facility] Diabetes Mellitus Type 2 ([facility] [id number]) Active Condition [facility] GERD - Gastro-Esophageal Reflux Disease ([facility] [id number]) Active Condition [facility] Gout ([facility] [id number]) Active Condition [facility] History of gastric ulcer Active Condition [facility] Hyperlipidemia ([facility] [id number]) Active Condition [facility] Low Back Pain ([facility] [id number]) Active Condition [facility] Paroxysmal atrial fibrillation Active Condition [facility] Past history of procedure Active Condition March 18, 2020 Entered By: KEI VALLES Comment: 2005 appendectomyMay 2019 Entered By: KEI VALLES Comment: 09/2003 right knee patellar tendon surgery with hardware placementMay 2019 Entered By: KEI VALLES Comment: 2018 bilateral eye cataract surgery [facility] Vitamin D Deficiency ([facility] [id number]) Active Condition [facility] Diagnosis: ICD-10-CM E11.9 Type 2 diabetes mellitus without complications Active Diagnosis [facility] Diagnosis: ICD-10-CM Z74.1 Need for assistance with personal care Active Diagnosis [facility] Diagnosis: ICD-10-CM I48.0 Paroxysmal atrial fibrillation Active Diagnosis [facility] Diagnosis: ICD-10-CM Z65.9 Problem related to unspecified psychosocial circumstances Active Diagnosis [facility] Diagnosis: ICD-10-CM E44.0 Moderate protein-calorie malnutrition Active Diagnosis [facility] Diagnosis: ICD-10-CM Z13.9 Encounter for screening, unspecified Active Diagnosis [facility] Diagnosis: ICD-10-CM Z55.9 Problems related to education and literacy, unspecified Active Diagnosis [facility] Medications Combined list of outpatient medications from [...] A DAY ORAL ACTIVE PACE,VICT OR 2019 [facility] ASPIRIN 81MG TAB,CHEWABL E CHEW AND SWALLOW ONE TABLET BY MOUTH ONCE A DAY ORAL ACTIVE PACE,VICT OR M 2019 [facility] DAPAGLIFLOZ IN 10MG TAB TAKE ONE TABLET BY MOUTH ONCE A DAY ORAL ACTIVE ME OLMAN TTISA 2022 [facility] DILTIAZEM (EQV-TIAZAC AB4) 120MG 24HR CAP TAKE 1 CAPSULE BY MOUTH EVERY MORNING BEFORE A MEAL ORAL ACTIVE ME OLMAN TTISA 2023 [facility] FERROUS SO4 325MG TAB TAKE ONE TABLET BY MOUTH ONCE A DAY ORAL ACTIVE PACE,VICT OR M 2019 [facility] FOLIC ACID 1MG TAB TAKE ONE TABLET BY MOUTH ONCE A DAY ORAL ACTIVE PACE,VICT OR M 2020 [facility] GLUCERNA SHAKE LIQUID STRAWBERRY TAKE 1 CANFUL BY MOUTH TWICE A DAY FOR NUTRITIO N/DIETAR Y SUPPLEME NTATION (SHAKE WELL) ORAL ACTIVE 10/18/2025 [id number] BLAKE OSPINA 2024 48 [facility] GLUCERNA SHAKE LIQUID STRAWBERRY TAKE 1 CANFUL BY MOUTH TWICE A DAY FOR NUTRITIO N/DIETAR Y SUPPLEME NTATION ([place]LL) ORAL DISCONT INUED BY KAITLYN R 11/13/2024 [id number] 4 BLAKE OSPINA 2023 48 [facility] GLUCERNA THERAPEUTIC NUTRITION SHAKE LIQUID STRAWBERRY TAKE 1 CANFUL BY MOUTH TWICE A DAY FOR NUTRITIO N/DIETAR Y SUPPLEME NTATION ([place]) ORAL DISCONT INUED 02/25/2025 [id number] BLAKE OSPINA Guille 2023 48 [facility] GLUCERNA THERAPEUTIC NUTRITION SHAKE LIQUID STRAWBERRY TAKE 1 CANFUL BY MOUTH TWICE A DAY FOR NUTRITIO N/DIETAR Y SUPPLEME NTATION (SHAKE WELL) ORAL DISCONT INUED 02/25/2025 [id number] BLAKE OSPINA Guille 2023 48 [facility] GLUCOSAMINE CAP/TAB TAKE 2 CAPSULES BY MOUTH TWICE A DAY ORAL ACTIVE PACE,VICT OR 2019 [facility] METFORMIN HCL 1000MG TAB TAKE ONE TABLET BY MOUTH TWICE A DAY WITH MEALS ORAL ACTIVE PACE,VICT OR 2019 [facility] METOPROLOL SUCCINATE 100MG TAB,SA TAKE ONE-HALF TABLET BY MOUTH ONCE A DAY ORAL ACTIVE JANICE SOLORIO 2024 [facility] NON-FORMULA RY TAB TAKE GLUCOCIL 1 TABLET OTC BY MOUTH ONCE A DAY ORAL ACTIVE PACE,VICT OR 2019 [facility] OMEPRAZOLE 20MG CAP,EC TAKE 1 CAPSULE BY MOUTH EVERY MORNING BEFORE A MEAL ORAL ACTIVE PACE,VICT OR 2019 [facility] RANOLAZINE 500MG TAB,SA TAKE ONE TABLET BY MOUTH TWICE A DAY ORAL ACTIVE THURMAN,ME TTISA 2023 [facility] SIMVASTATIN TAB TAKE ONE TABLET BY MOUTH EVERY EVENING ORAL ACTIVE PACE,VICT OR 2019 [facility] Allergies, Adverse Reactions, Alerts Combined list of allergies from Department of Defense and Veterans Affairs facilities. It does not include entries that were removed or entered in error. Substance Category Reaction Severity Reaction type Status Date Reported Comments Source LISINOPRIL Propensity to adverse reactions to drug (finding) Cough active 0 [facility] Immunizations Combined list of available immunizations from the Department of Defense and Veterans Affairs facilities. Immunization Series Date Given Administered By Site Reaction Lot Number CVX Code Drug Sales Administration Manager Status Comments Source INFLUENZA, HIGH-DOSE, TRIVALENT, PF 1 2023 135 complet ed HISTORICA L INFORMATI ON - FROM OTHER REGISTRY, [facility] N COVID-19 ([employer]), MRNA, LNP-S, PF, ANNIE-SUCROSE, 30 MCG/0.3 ML (AGES 12+ YEARS) 6 2023 309 complet ed HISTORICA L INFORMATI ON - FROM OTHER REGISTRY, [facility] COVID-19 ([employer]), MRNA, LNP-S, PF, ANNIE-SUCROSE, 30 MCG/0.3 ML (AGES 12+ YEARS) 1 2023 309 complet ed HISTORICA L INFORMATI ON - FROM PATIENT'S WRITTEN RECORD, [facility] RSV, RECOMBINANT, PROTEIN SUBUNIT RSVPREF, ADJUVANT RECONSTITUTED , 0.5 ML, PF 1 2023 303 complet ed HISTORICA L INFORMATI ON - FROM OTHER REGISTRY, [facility] COVID-19 ([employer]), MRNA, LNP-S, PF, ANNIE-SUCROSE, 30 MCG/0.3 ML (AGES 12+ YEARS) 5 2022 309 complet ed HISTORICA L INFORMATI ON - FROM OTHER REGISTRY, [facility] N INFLUENZA, UNSPECIFIED FORMULATION 2022 88 complet ed Completed Series, HISTORICA L INFORMATI ON - FROM PATIENT'S RECALL, [facility] N PNEUMOCOCCAL POLYSACCHARID E [id number] 2022 33 complet ed Completed Series, HISTORICA L INFORMATI ON - FROM PATIENT'S WRITTEN RECORD, [facility] N RESPIRATORY SYNCYTIAL VIRUS (RSV) VACCINE, UNSPECIFIED 2022 314 complet ed Completed Series, HISTORICA L INFORMATI ON - FROM PATIENT'S WRITTEN RECORD, [facility] ([facility]), MRNA, LNP-S, BIVALENT BOOSTER, PF, 50 MCG/0.5 ML OR 25MCG/0.25 ML DOSE 1 2021 INDER MENA LEFT DELTO ID [id number] 229 complet ed ADMINISTE [place] AT [place], [facility] PNEUMOCOCCAL CONJUGATE PCV20, POLYSACCHARID E [id number] CONJUGATE, ADJUVANT, PF 2021 INDER MENA LEFT DEL[place] ID [id number] 216 complet ed Completed Series, ADMINISTE RED AT [facility] INFLUENZA, HIGH-DOSE, QUADRIVALENT 5 2021 197 complet ed HISTORICA L INFORMATI ON - FROM OTHER REGISTRY, [facility] N INFLUENZA, UNSPECIFIED FORMULATION 2021 88 complet ed Completed Series, HISTORICA L INFORMATI ON - FROM PARENT'S WRITTEN RECORD, [facility] N COVID-19 ([facility]), MRNA, LNP-S, PF, 100 MCG/0.5ML DOSE OR 50 MCG/0.25ML DOSE 4 2021 NONE 207 complet ed MOD; [id number]; 2 [facility] ZOSTER RECOMBINANT 2 2021 NONE 187 complet ed [facility] COVID-19 ([facility]), MRNA, LNP-S, PF, 100 MCG/0.5 ML DOSE 3 2020 207 complet ed [facility] INFLUENZA, HIGH-DOSE, QUADRIVALENT 4 2020 197 complet ed HISTORICA L INFORMATI ON - FROM OTHER REGISTRY, [facility] N INFLUENZA, UNSPECIFIED FORMULATION 2020 88 complet ed [facility] TD[facility] 2020 NONE 115 complet ed Completed Series, [facility] ZOSTER RECOMBINANT 1 2020 NONE 187 complet ed [facility] COVID-19 ([facility]), MRNA, LNP-S, PF, 100 MCG/0.5 ML DOSE 2 2020 207 complet ed [facility] COVID-19 ([facility]), MRNA, LNP-S, PF, 100 MCG/0.5 ML DOSE 1 2020 207 complet ed [facility] INFLUENZA, HIGH-DOSE, QUADRIVALENT 3 2019 197 complet ed HISTORICA L INFORMATI ON - FROM OTHER [facility], [facility] INFLUENZA, UNSPECIFIED FORMULATION 2019 88 complet ed [facility] INFLUENZA, HIGH DOSE SEASONAL 2 2018 135 complet ed HISTORICA L INFORMATI ON - FROM OTHER REGISTRY, [facility] N PNEUMOCOCCAL CONJUGATE PCV 13 2018 133 complet ed chart review [facility] PNEUMOCOCCAL POLYSACCHARID E [id number] 2018 33 complet ed [facility] INFLUENZA, HIGH DOSE SEASONAL 1 2017 135 complet ed HISTORICA L INFORMATI ON - FROM OTHER REGISTRY, [facility] Results Combined list of recent chemistry, hematology and other laboratory results from Department of Defense and Veterans Affairs, ranging from 15 months to all on record, depending upon the facility. Order Name Results Value Reference Range Date Interpretation Specimen Comments Source GLUCOSE,BLO OD-poct (STL) GLUCOSE [MASS/VOLUME ] IN BLOOD BY AUTOMATED TEST STRIP 270 mg/dL 72 - 99 02/13 H Specimen Type: BLOOD Comment: Test Performed by: [id number] Meter #: [id number] Ordering Provider: JANICE DIAMOND Report Released Date/Time: Feb 13, 2025 03:30 PM Reporting Lab: [facility] [address] [facility] [address] Performing Lab: [place] [address] [facility] [address] [facility] VITAMIN D, 25-HYDROXY 25-HYDROXYVI TAMIN D3 [MASS/VOLUME ] IN SERUM OR PLASMA 47.5 ng/mL 30 - 96 08/14 Specimen Type: SERUM No comment entered. Ordering Provider: JANICE DIAMOND Report Released Date/Time: Aug 14, 2024 11:07 AM Reporting Lab: [facility] [address] [facility] [address] Performing Lab: [facility] [address] [place] [phone] [facility] HGA1C HEMOGLOBIN A1C/HEMOGLOB IN.TOTAL IN BLOOD 6.9 4.0 - 6.0 08/14 H Specimen Type: BLOOD No comment entered. Ordering Provider: JANICE DIAMOND Report Released Date/Time: Aug 14, 2024 11:07 AM Reporting Lab: [facility] [address] [address] Performing Lab: [address] [address] [facility] COMPREHENSI VE METABOLIC PANEL CREATININE [MASS/VOLUME ] IN SERUM OR PLASMA 1.15 mg/dL 0.7 - 1.3 08/14 Specimen Type: PLASMA Comment: No hemolysis noted. Ordering Provider: JANICE DIAMOND Report Released Date/Time: Aug 14, 2024 11:07 AM Reporting Lab: [facility] [address] [address] Performing Lab: [facility] [address] [place] [phone] [facility] COMPREHENSI VE METABOLIC PANEL UREA NITROGEN [MASS/VOLUME ] IN SERUM OR PLASMA 19.7 mg/dL 9.0 - 25.0 08/14 Specimen Type: PLASMA Comment: No hemolysis noted. Ordering Provider: JANICE DIAMOND Report Released Date/Time: Aug 14, 2024 11:07 AM Reporting Lab: [facility] [address] [address] Performing Lab: [address] [address] [facility] COMPREHENSI VE METABOLIC PANEL GLUCOSE [MASS/VOLUME ] IN SERUM OR PLASMA 123 mg/dL 72 - 99 08/14 H Specimen Type: PLASMA Comment: No hemolysis noted. Ordering Provider: JANICE DIAMOND Report Released Date/Time: Aug 14, 2024 11:07 AM Reporting Lab: [facility] [address] [address] Performing Lab: [facility] [address] [facility] [address] [facility] COMPREHENSI VE METABOLIC PANEL SODIUM [MOLES/VOLUM E] IN SERUM OR PLASMA 139 meq/L 136 - 145 08/14 Specimen Type: PLASMA Comment: No hemolysis noted. Ordering Provider: JANICE DIAMOND Report Released Date/Time: Aug 14, 2024 11:07 AM Reporting Lab: [facility] [address] [place] [phone] Performing Lab: [facility] [address] [place] [phone] [place] [address] COMPREHENSI VE METABOLIC PANEL POTASSIUM [MOLES/VOLUM E] IN SERUM OR PLASMA 4.7 meq/L 3.5 - 5 08/14 Specimen Type: PLASMA Comment: No hemolysis noted. Ordering Provider: JANICE DIAMOND Report Released Date/Time: Aug 14, 2024 11:07 AM Reporting Lab: [facility] [address] [place] [phone] Performing Lab: [facility] [address] [facility] [phone] [place] [address] COMPREHENSI VE METABOLIC PANEL CHLORIDE [MOLES/VOLUM E] IN SERUM OR PLASMA 102 meq/L 98 - 107 08/14 Specimen Type: PLASMA Comment: No hemolysis noted. Ordering Provider: JANICE DIAMOND Report Released Date/Time: Aug 14, 2024 11:07 AM Reporting Lab: [facility] [address] [place] [phone] Performing Lab: [facility] [address] [place] [phone] [facility] COMPREHENSI VE METABOLIC PANEL CARBON DIOXIDE, TOTAL [MOLES/VOLUM E] IN SERUM OR PLASMA 24 meq/L 22 - 31 08/14 Specimen Type: PLASMA Comment: No hemolysis noted. Ordering Provider: JANICE DIAMOND Report Released Date/Time: Aug 14, 2024 11:07 AM Reporting Lab: [facility] [address] [facility] [address] Performing Lab: [facility] [address] [facility] [address] [facility] COMPREHENSI VE METABOLIC PANEL CALCIUM [MASS/VOLUME ] IN SERUM OR PLASMA 10.6 mg/dL 8.4 - 10.4 08/14 H Specimen Type: PLASMA Comment: No hemolysis noted. Ordering Provider: JANICE DIAMOND Report Released Date/Time: Aug 14, 2024 11:07 AM Reporting Lab: [facility] [address] [place] [phone] Performing Lab: [facility] [address] [place] [phone] [facility] COMPREHENSI VE METABOLIC PANEL PROTEIN [MASS/VOLUME ] IN SERUM OR PLASMA 7.7 g/dL 6 - 8.6 08/14 Specimen Type: PLASMA Comment: No hemolysis noted. Ordering Provider: JANICE DIAMOND Report Released Date/Time: Aug 14, 2024 11:07 AM Reporting Lab: [facility] [address] [facility] [address] Performing Lab: [facility] [address] [place] [phone] [facility] COMPREHENSI VE METABOLIC PANEL ALBUMIN [MASS/VOLUME ] IN SERUM OR PLASMA 4.5 g/dL 3.4 - 5 08/14 Specimen Type: PLASMA Comment: No hemolysis noted. Ordering Provider: JANICE DIAMOND Report Released Date/Time: Aug 14, 2024 11:07 AM Reporting Lab: [facility] [address] [facility] [address] Performing Lab: [facility] [address] [facility] [address] [facility] COMPREHENSI VE METABOLIC PANEL BILIRUBIN.TO CAREY [MASS/VOLUME ] IN SERUM OR PLASMA 0.6 mg/dL 0.2 - 1.2 08/14 Specimen Type: PLASMA Comment: No hemolysis noted. Ordering Provider: JANICE DIAMOND Report Released Date/Time: Aug 14, 2024 11:07 AM Reporting Lab: [facility] [address] [place] [phone] Performing Lab: [facility] [address] [place] [phone] [facility] COMPREHENSI VE METABOLIC PANEL ALKALINE PHOSPHATASE [ENZYMATIC ACTIVITY/VOL UME] IN SERUM OR PLASMA 58 U/L 40 - 150 08/14 Specimen Type: PLASMA Comment: No hemolysis noted. Ordering Provider: JANICE DIAMOND Report Released Date/Time: Aug 14, 2024 11:07 AM Reporting Lab: [facility] [address] [place] [phone] Performing Lab: [address] [address] [facility] COMPREHENSI VE METABOLIC PANEL ASPARTATE AMINOTRANSFE RASE [ENZYMATIC ACTIVITY/VOL UME] IN SERUM OR PLASMA 15 U/L 5 - 34 08/14 Specimen Type: PLASMA Comment: No hemolysis noted. Ordering Provider: JANICE DIAMOND Report Released Date/Time: Aug 14, 2024 11:07 AM Reporting Lab: [address] [address] Performing Lab: [facility] [address] [place] [phone] [facility] COMPREHENSI VE METABOLIC PANEL ALANINE AMINOTRANSFE RASE [ENZYMATIC ACTIVITY/VOL UME] IN SERUM OR PLASMA 16 U/L 8 - 40 08/14 Specimen Type: PLASMA Comment: No hemolysis noted. Ordering Provider: JANICE DIAMOND Report Released Date/Time: Aug 14, 2024 11:07 AM Reporting Lab: [facility] [address] [place] [phone] Performing Lab: [facility] [address] [place] [phone] [place] [address] COMPREHENSI VE METABOLIC PANEL GLOMERULAR FILTRATION RATE/1.73 SQ M.PREDICTED [VOLUME RATE/AREA] IN SERUM, PLASMA OR BLOOD BY CREATININE-B ASED FORMULA (CKD-EPI 2020) 62.0 60 08/14 Specimen Type: PLASMA Comment: No hemolysis noted. Ordering Provider: JANICE DIAMOND Report Released Date/Time: Aug 14, 2024 11:07 AM Reporting Lab: [facility] [address] [facility] [address] Performing Lab: [facility] [address] [phone] CBC LEUKOCYTES [#/VOLUME] IN BLOOD BY AUTOMATED COUNT 6.1 10*3/u L 3.6 - 11.2 08/14 Specimen Type: BLOOD No comment entered. Ordering Provider: JANICE DIAMOND Report Released Date/Time: Aug 14, 2024 11:07 AM Reporting Lab: [facility] [address] [phone] Performing Lab: [facility] [address] [facility] [phone] [place] [address] CBC ERYTHROCYTES [#/VOLUME] IN BLOOD BY AUTOMATED COUNT 5.32 10*6/u L 4.10 - 5.70 08/14 Specimen Type: BLOOD No comment entered. Ordering Provider: JANICE DIAMOND Report Released Date/Time: Aug 14, 2024 11:07 AM Reporting Lab: [facility] [address] [facility] [address] Performing Lab: [facility] [address] [facility] [phone] [place] [address] CBC HEMOGLOBIN [MASS/VOLUME ] IN BLOOD 14.4 g/dL 13.1 - 16.8 08/14 Specimen Type: BLOOD No comment entered. Ordering Provider: JANICE DIAMOND Report Released Date/Time: Aug 14, 2024 11:07 AM Reporting Lab: [facility] [address] [facility] [address] Performing Lab: [address] [address] [facility] CBC HEMATOCRIT [VOLUME FRACTION] OF BLOOD 46.7 38.2 - 48.4 08/14 Specimen Type: BLOOD No comment entered. Ordering Provider: JANICE DIAMOND Report Released Date/Time: Aug 14, 2024 11:07 AM Reporting Lab: [address] [address] Performing Lab: [address] [address] [facility] CBC MCV [ENTITIC VOLUME] BY AUTOMATED COUNT 87.8 fL 80.0 - 100.0 08/14 Specimen Type: BLOOD No comment entered. Ordering Provider: JANICE DIAMOND Report Released Date/Time: Aug 14, 2024 11:07 AM Reporting Lab: [address] [address] Performing Lab: [address] [address] [facility] CBC MCH [ENTITIC MASS] BY AUTOMATED COUNT 27.1 pg 27.0 - 34.0 08/14 Specimen Type: BLOOD No comment entered. Ordering Provider: JANICE DIAMOND Report Released Date/Time: Aug 14, 2024 11:07 AM Reporting Lab: [address] [phone] Performing Lab: [address] [address] [facility] CBC MCHC [MASS/VOLUME ] BY AUTOMATED COUNT 30.8 g/dL 33.0 - 36.0 08/14 L Specimen Type: BLOOD No comment entered. Ordering Provider: JANICE DIAMOND Report Released Date/Time: Aug 14, 2024 11:07 AM Reporting Lab: [address] [address] Performing Lab: [facility] [address] [facility] [address] [facility] CBC PLATELETS [#/VOLUME] IN BLOOD BY AUTOMATED COUNT 221 10*3/u L 150 - 400 08/14 Specimen Type: BLOOD No comment entered. Ordering Provider: JANICE DIAMOND Report Released Date/Time: Aug 14, 2024 11:07 AM Reporting Lab: [address] [address] Performing Lab: [address] [address] [facility] CBC PLATELET MEAN VOLUME [ENTITIC VOLUME] IN BLOOD BY AUTOMATED COUNT 11.8 fL 7.5 - 11.2 08/14 H Specimen Type: BLOOD No comment entered. Ordering Provider: JANICE DIAMOND Report Released Date/Time: Aug 14, 2024 11:07 AM Reporting Lab: [facility] [address] [place] [phone] Performing Lab: [address] [address] [facility] CBC ERYTHROCYTE DISTRIBUTION WIDTH [RATIO] BY AUTOMATED COUNT 15.2 11.8 - 15.1 08/14 H Specimen Type: BLOOD No comment entered. Ordering Provider: JANICE DIAMOND Report Released Date/Time: Aug 14, 2024 11:07 AM Reporting Lab: [facility] [address] [place] [phone] Performing Lab: [facility] [address] [place] [phone] [facility] CBC LYMPHOCYTES/ 100 LEUKOCYTES IN BLOOD BY AUTOMATED COUNT 23 08/14 Specimen Type: BLOOD No comment entered. Ordering Provider: JANICE DIAMOND Report Released Date/Time: Aug 14, 2024 11:07 AM Reporting Lab: [address] [address] Performing Lab: [facility] [address] [place] [phone] [facility] CBC MONOCYTES/10 0 LEUKOCYTES IN BLOOD BY AUTOMATED COUNT 11 08/14 Specimen Type: BLOOD No comment entered. Ordering Provider: JANICE DIAMOND Report Released Date/Time: Aug 14, 2024 11:07 AM Reporting Lab: [facility] [address] [facility] [phone] Performing Lab[facility] [address] [facility] [phone] [facility] NEUTROPHILS/ 100 LEUKOCYTES IN BLOOD BY AUTOMATED COUNT 61 08/14 Specimen Type: BLOOD No comment entered. Ordering Provider: JANICE DIAMOND Report Released Date/Time: Aug 14, 2024 11:07 AM Reporting Lab: [facility] [address] [place] [phone] Performing Lab: [facility] [address] [place] [address] [phone] [place] [address] CBC EOSINOPHILS/ 100 LEUKOCYTES IN BLOOD BY AUTOMATED COUNT 4 08/14 Specimen Type: BLOOD No comment entered. Ordering Provider: JANICE DIAMOND Report Released Date/Time: Aug 14, 2024 11:07 AM Reporting Lab: [facility] [address] [facility] [phone] Performing Lab: [facility] [address] [place] [phone] [facility] BASOPHILS/10 0 LEUKOCYTES IN BLOOD BY AUTOMATED COUNT 1 08/14 Specimen Type: BLOOD No comment entered. Ordering Provider: JANICE DIAMOND Report Released Date/Time: Aug 14, 2024 11:07 AM Reporting Lab: [facility] [address] [place] [phone] Performing Lab: [facility] [address] [place] [phone] [facility] CBC LYMPHOCYTES [#/VOLUME] IN BLOOD BY AUTOMATED COUNT 1.43 10*3/u L 0.77 - 4.50 08/14 Specimen Type: BLOOD No comment entered. Ordering Provider: JANICE DIAMOND Report Released Date/Time: Aug 14, 2024 11:07 AM Reporting Lab: [facility] [address] [place] [phone] Performing Lab: [facility] [address] [place] [phone] [facility] CBC MONOCYTES [#/VOLUME] IN BLOOD BY AUTOMATED COUNT 0.65 10*3/u L 0.19 - 0.80 08/14 Specimen Type: BLOOD No comment entered. Ordering Provider: JANICE DIAMOND Report Released Date/Time: Aug 14, 2024 11:07 AM Reporting Lab: [facility] [address] [place] [phone] Performing Lab: [phone] [place] [address] CBC NEUTROPHILS [#/VOLUME] IN BLOOD BY AUTOMATED COUNT 3.71 10*3/u L 2.10 - 8.00 08/14 Specimen Type: BLOOD No comment entered. Ordering Provider: JANICE DIAMOND Report Released Date/Time: Aug 14, 2024 11:07 AM Reporting Lab: [facility] [address] [place] [phone] Performing Lab: [address] [phone] [place] [address] CBC EOSINOPHILS [#/VOLUME] IN BLOOD BY AUTOMATED COUNT 0.25 10*3/u L 0.00 - 0.60 08/14 Specimen Type: BLOOD No comment entered. Ordering Provider: JANICE DIAMOND Report Released Date/Time: Aug 14, 2024 11:07 AM Reporting Lab: [facility] [address] [place] [phone] Performing Lab: [facility] [address] [place] [phone] [facility] CBC BASOPHILS [#/VOLUME] IN BLOOD BY AUTOMATED COUNT 0.07 10*3/u L 0.00 - 0.20 08/14 Specimen Type: BLOOD No comment entered. Ordering Provider: JANICE DIAMOND Report Released Date/Time: Aug 14, 2024 11:07 AM Reporting Lab: [facility] [address] [place] [phone] Performing Lab: [facility] [address] [place] [phone] [facility] TSH (MA-PB) THYROTROPIN [UNITS/VOLUM E] IN SERUM OR PLASMA 3.238 u[IU]/ mL 0.47 - 5 08/14 Specimen Type: SERUM No comment entered. Ordering Provider: JANICE DIAMOND Report Released Date/Time: Aug 14, 2024 11:07 AM Reporting Lab: [address] [phone] Performing Lab: [address] [phone] [facility] LIPID PANEL (STL) CHOLESTEROL [MASS/VOLUME ] IN SERUM OR PLASMA 168 mg/dL 0 - 200 08/14 Specimen Type: PLASMA Comment: No hemolysis noted. Ordering Provider: JANICE DIAMOND Report Released Date/Time: Aug 14, 2024 11:07 AM Reporting Lab: [address] [phone] Performing Lab: [address] [phone] [facility] LIPID PANEL (STL) TRIGLYCERIDE [MASS/VOLUME ] IN SERUM OR PLASMA 79 mg/dL 0 - 150 08/14 Specimen Type: PLASMA Comment: No hemolysis noted. Ordering Provider: JANICE DIAMOND Report Released Date/Time: Aug 14, 2024 11:07 AM Reporting Lab: [address] [phone] Performing Lab: [address] [phone] [facility] LIPID PANEL (STL) CHOLESTEROL IN LDL [MASS/VOLUME ] IN SERUM OR PLASMA BY CALCULATION 80 mg/dL 08/14 Specimen Type: PLASMA Comment: No hemolysis noted. Ordering Provider: JANICE DIAMOND Report Released Date/Time: Aug 14, 2024 11:07 AM Reporting Lab: [address] [phone] Performing Lab: [address] [phone] [place] [address] LIPID PANEL (STL) CHOLESTEROL IN HDL [MASS/VOLUME ] IN SERUM OR PLASMA 72 mg/dL 40 08/14 Specimen Type: PLASMA Comment: No hemolysis noted. Ordering Provider: JANICE DIAMOND Report Released Date/Time: Aug 14, 2024 11:07 AM Reporting Lab: [address] [phone] Performing Lab: [address] [phone] [facility] GLUCOSE,BLO OD-poct (L) GLUCOSE [MASS/VOLUME ] IN BLOOD BY AUTOMATED TEST STRIP 118 mg/dL 72 - 99 08/14 H Specimen Type: BLOOD Comment: Test Performed by: [id number] Meter #: [id number] Ordering Provider: JANICE DIAMOND Report Released Date/Time: Aug 14, 2024 03:30 PM Reporting Lab: [place] [address] [facility] [address] Performing Lab: [place] [address] [facility] [phone] [facility] VITAMIN D, 25-HYDROXY 25-HYDROXYVI TAMIN D3 [MASS/VOLUME ] IN SERUM OR PLASMA 41.5 ng/mL 30 - 96 05/23 Specimen Type: SERUM No comment entered. Ordering Provider: MET EVIE THURMAN Report Released Date/Time: May 23, 2024 09:39 AM Reporting Lab: [address] [address] Performing Lab: [facility] [address] [facility] [address] [facility] HGA1C HEMOGLOBIN A1C/HEMOGLOB IN.TOTAL IN BLOOD 7.0 4.0 - 6.0 05/23 H Specimen Type: BLOOD No comment entered. Ordering Provider: MET EVIE THURMAN Report Released Date/Time: May 23, 2024 10:03 AM Reporting Lab: [facility] [address] [facility] [phone] Performing Lab: [facility] [address] [facility] [phone] [facility] Vital Signs Combined list of inpatient and outpatient Vital Signs from Department of Defense and Veterans Affairs, ranging from 12 months to all on record, depending upon the facility. Vital Sign Value Date Comments Source SYSTOLIC BLOOD PRESSURE 113 02/13/2025 13:47:43 [facility] DIASTOLIC BLOOD PRESSURE 63 02/13/2025 13:47:[facility] PULSE OXIMETRY 99 02/13/2025 13:47:43 [facility] WEIGHT 160 02/13/2025 13:47:43 [facility] BMI 21 kg/m2 02/13/2025 13:47:[address] [facility] [facility] PAIN 0 02/13/2025 13:47:[address] [facility] [facility] TEMPERATURE 97.7 02[facility]13/2025 13:47:[facility] PULSE 65 02/13/2025 13:47:43 [facility] RESPIRATION 20 02/13/2025 13:47:43 [facility] SYSTOLIC BLOOD PRESSURE 102 08/14/2024 10:41:43 [facility] DIASTOLIC BLOOD PRESSURE 60 08/14/2024 10:41:43 [facility] PULSE OXIMETRY 97 08/14/2024 10:41:43 [facility] WEIGHT 157 08/14/2024 10:41:43 [facility] BMI 21 kg/m2 08/14/2024 10:41:43 [facility] PAIN 0 08/14/2024 10:41:43 [facility] HEIGHT 73 08/14/2024 10:41:43 [facility] TEMPERATURE 97.5 08/14/2024 10:41:43 [facility] PULSE 70 08/14/2024 10:41:43 [facility] RESPIRATION 18 08/14/2024 10:41:43 . [facility] WEIGHT 160 05/23/2024 09:12:28 . [facility] BMI 21 kg/m2 05/23/2024 09:12:28 [facility] Encounters Combined list of: 1) Encounters from Department of [facility] facilities going backup to the last 18 months, not all [place] inpatient encounters are included; 2) Encounters from the Department of [facility] facilities going backup to 280 months. Location Location Details Encounter Type Encounter Number Reason For Visit Attending Provider ADM Date DC Date Status Disposition Source [facility] Outpatient Encounter [id number] 11/22 [facility] Outpatient Encounter [id number] 12/07 [facility] Outpatient Encounter [id number] 12/07 [facility] Outpatient Encounter [id number] CEZAR MENA M 12/21 [facility] FUNDUS PHOTOGRAPH Y W/I&R [id number] Diagnos is: ICD-10- CM Z13.9 Encount er for screeni ng, unspeci fied EMMANUEL VINSON 12/25 [facility] Outpatient Encounter [id number] Diagnos is: ICD-10- CM Z55.9 Problem s related to educati on and literac y, unspeci fied AFSHAN VINSONDY 12/25 [facility] OFFICE O/P EST MOD 30 MIN [id number] Diagnos is: ICD-10- CM E11.9 Type 2 diabete s mellitu s without complic ations THURMAN,MET EVIE 12/25 [facility] IMG RTA DETC/MNTR DS PHY/QHP [id number] Diagnos is: ICD-10- CM Z13.9 Encount er for screeni ng, unspeci fipaco CHRISTOPHERMayi,KR ISSOFÍA JIMENESE 12/25 [facility] Outpatient Encounter [id number] ALISSONEMMANUEL 12/26 [facility] Outpatient Encounter [id number] 02/03 [facility] [place] [id number] Diagnos is: ICD-10- CM 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 Outpatient Encounter [id number] 08/11 [facility] Outpatient Encounter [id number] CEZAR MENA M 08/13 [facility] OFFICE O/P EST MOD 30 MIN [id number] Diagnos is: ICD-10- CM I48.0 Paroxys mal atrial fibrill ation JANICE DIAMOND 08/14 [facility] Outpatient Encounter [id number] 08/21 [facility] Outpatient Encounter [id number] 10/15 [facility] Outpatient Encounter [id number] 10/15 [facility] Outpatient Encounter [id number] DICK DAS M 10/16 [facility] HC PRO PHONE CALL 21-30 MIN [id number] Diagnos is: ICD-10- CM Z65.9 Problem related to unspeci fied psychos ocial circums RONEY Coon L 10/20 [facility] HL BHV ASSMT/REAS SESSMENT [id number] Diagnos is: ICD-10- CM I48.0 Paroxys mal atrial fibrill ation JUD BRADSHAW L 10/27 [facility] Outpatient Encounter [id number] 10/27 [facility] Outpatient Encounter [id number] SHOBHA BISHOP Dinorah 10/30 [facility] IN[facility]KE ASSESS[facility] [id number] Diagnos is: ICD-10- CM Z74.1 Need for assista nce with WANDER Daugherty 11/27 [facility] Outpatient Encounter [id number] 11/27 [facility] Outpatient Encounter [id number] 12/12 [facility] Encounter [id number] RONEY BLAIR 12/17 [facility] OFFICE O/P EST MOD 30 MIN [id number] Diagnos is: ICD-10- CM E11.9 Type 2 diabete s mellitu s without complic ations JANICE DIAMOND 02/13 [facility] Outpatient Encounter [id number] 02/19 [facility] Social History Combined list of available smoking, tobacco, and other social history from Department of Defense and Veterans Affairs facilities. Social History Type Response Date Comment Sourc e Tobacco smoking status WIIS VA-TOBACCO NEVER USED 08/13/2024 [facility] History of tobacco use [place]-TOBACCO NEVER USED 05/04/2023 [facility] History of tobacco use VA-TOBACCO NEVER USED 03/20/2022 [facility] History of tobacco use OK-TOBACCO NEVER USED 03/11/2021 [facility] History of tobacco use OK-TOBACCO NEVER USED 03/04/2020 [facility]
--- OUTSIDE RECORDS SUMMARY | 2025-04-01 08:49 | XMS_ITS | Encounter Summary ---
Author Name [facility] [place] [facility] [place] Address [address] [place] [address] Care Team Providers Care Grants Administrator Name Role Phone KALEEANNIE GEE Primary Care Provider Unavailabl e Insurance Providers: [...] PART B Jan 04, 2004 PART B [id number] [phone] ESAZULEMAVILMA OCHOA PATIENT MEDICARE (WNR) MEDICARE (M) PART A Aug 05, 2002 PART A [id number] [phone] VILMA LEWIS OCHOA PATIENT Selected Encounter This section includes the information on record at DC for the Encounter. Date/Time Encounter Type Encounter Description Reason Provider Source Oct 30, 2024 02:10 PM Outpatient Encounter ADMIN PAT ACTIVTIES (MASNONCT) MATI BISHOP Encounter Template Text not used by DC Plan of Treatment: Future Appointments (+ 6 months) and Future Tests (+/- 45 days) The Plan of Treatment section includes future care activities for the patient from all [place] treatmentfacilities. This section includes future appointments and future orders which are active, pending or scheduled. Future Appointments This section includes appointments that were scheduled to occur 6 months from the date of the Encounter, up to a maximum of 20 appointments. The data comes from all [place] treatment facilities. Appointment Date/Time Appointment Type Appointme nt Facility Name Nov 27, 2024 01:00 PM AMBULATORY - MEDICINE [facility] Feb 13, 2025 02:00 PM [facility] MEDICINE [facility] Encounter Notes: All associated encounter notes [...] STATUS: COMPLETED Test call has been completed. [place] may now be scheduled for [facility] appointment. No data available for: V15 Current Email Address Phone number: Enter correct contact number,if not same as above SAME ABOVE /cristiane/ MATI BISHOP Telehealth Clinical Fisher Purse Seine Signed: 10/30/2024 14:11 MATI BISHOP [facility]
--- OUTSIDE RECORDS SUMMARY | 2025-04-01 08:49 | XMS_ITS ---
Author Name [facility] Address [address] [place] [address] Care Team Providers Care Airplane Rental Clerk Name Role Phone KALEEANNIE GEE Primary Care [...] PART B Jan 04, 2004 PART B [id number] [phone] ESAZULEMAVILMA OCHOA PATIENT MEDICARE (WNR) MEDICARE (M) PART A Aug 05, 2002 PART A [id number] VILMA LEWIS OCHOA PATIENT Selected Encounter This section includes the information on record at NH for the Encounter. Date/Time Encounter Type Encounter Description Reason Provider Source Oct 27, 2024 09:00 AM [facility] ASSMT/REASSESSM ENT CAREGIVER SUPPORT PROGRAM ICD-10-CM I48.0 Paroxysmal atrial fibrillation GEORGIA BRADSHAW Encounter Template Text not used by NH Assessments - Encounter Diagnoses This section includes the primary and secondary diagnoses documented for the Encounter. Date/Time Primary/Secondary Diagnosis Diagnosis Name Provider Source Oct 27, 2024 10:53 AM PRIMARY Paroxysmal atrial fibrillation DELICIA TRIMBLE [facility] Oct 27, 2024 10:53 AM SECONDARY Vertebrogenic low back pain DELICIA TRIMBLE [facility] Plan of Treatment: Future Appointments (+ 6 months) and Future Tests (+/- 45 days) The Plan of Treatment section includes future care activities for the [facility] This section includes future appointments and future orders which are active, pending or scheduled. Future Appointments This section includes appointments that were scheduled to occur 6 months from the date of the Encounter, up to a maximum of 20 appointments. The data comes from all NH treatment facilities. Appointment Date/Time Appointment Type Appointme nt Facility Name Nov 27, 2024 01:00 PM AMBULATORY - MEDICINE [facility] Feb 13, 2025 02:00 PM AMBULATORY - MEDICINE [facility] Social History: Smoking Status (Most current) and Tobacco Use (All prior to encounter date) This section includes the most current, and the historical, smoking and tobacco- related health factors from the NH facility where the Encounter took place. Current Smoking Status This section includes the most current smoking, or tobacco-related health factor, from the NH facility where the Encounter took place. Date/Time Current Smoking Status Comment Joy ity Aug 13, 2024 04:00 PM VA-TOBACCO NEVER USED [facility] Tobacco Use History This section includes a history of the smoking, or tobacco-related health factors, that were collected on or before the date of the Encounter. The data comes from the NH facility where the Encounter took place. Date/Time Smoking Status/Tobacco Use Comment F acility May 04, 2023 03:40 PM VA-TOBACCO NEVER USED [facility] March 20, 2022 04:29 PM VA-TOBACCO NEVER USED [facility] March 11, 2021 01:07 PM VA-TOBACCO NEVER USED [facility] Encounter Notes: All associated encounter notes This [...] reports wanting to learn more about the [place] Alert device for due to his falling. Please follow up, thank you. /es/ BERRY TRIMBLE Staple Shear Operator, Caregiver Support Program Signed: 10/27/2024 18:20 /es/ GEORGIA BRADSHAW Staple Shear Operator, Caregiver Support Program Cosigned: 10/30/2024 08:43 Receipt Acknowledged By: 10/31/2024 09:41 /es/ [facility] 10/31/2024 16:20 /es/ YUVAL DAS, RN, BSN Registered Nurse --- Original Document --- 10/27/24 [facility] ASSESSMENT: Program of Comprehensive Assistance for Family Caregivers [place] Assessment The Program of Comprehensive Assistance for [...] 1 hour and 10 minutes Identified the [place] using full name and the following other menjivar identifier(s): Full name: ROSEMARY LEWIS Full SSN: [id number] Date of : Aug Diagnosis: Paroxysmal atrial fibrillation (SCT 120974046) - Paroxysmal atrial fibrillation (ICD-10-CM I48.0) (Primary) The interview was conducted using the telephone. Reviewed limits of confidentiality with the and caregiver/applicant(s). Brief description of why the and caregiver/applicant(s) are applying to or participating in the program: reports he has trouble getting around, uses a cane and rollator. He states he doesn't do well on stairs, and doesn't cook or do laundry. Primary Family Caregiver Applicant reports is not able to walk well or stand for longer periods ( states he can't stand for more than 3 minutes). CURRENT LIVING SITUATION The following live in the 's household: Name: Anel Lewis Age: 82 Relationship: /Primary Family Caregiver Applicant Special needs: The does not provide care for anyone in the household. The does not participate in care of the home or property. The does not drive independently. When did [place] last drive: reports last driving January 2024. Additional information: [place] reports he was driving some before January 23 (surgery on this date) and has not driven since then. EMPLOYMENT HISTORY The is not currently employed. When was last employed? reports he last worked over 20 years ago, when he was 64. EDUCATION HISTORY The has barriers to education. Details of barriers to education: reports his age and physical health as barriers. The is not attending school. The [place] is or wishes to pursue enrollment: No SOCIAL HISTORY What does the [place]'s typical day look like? [place] reports they wake up and eat breakfast. He states he walks around downstairs a bit, watches TV, and may walk outside in his yard briefly. He did not expand on a typical day beyond this. What does the [place] do for leisure/relaxation? [place] states he will play Solitaire or chess on the computer. CURRENT PROVIDERS The [place] is currently receiving [facility] Primary Care or [facility] Primary Care. Provider's name: TITA Diamond The is not currently participating in other NH programs/services. The is not currently receiving NH Mental Health or Substance Use treatment. The [place] is not currently receiving care outside of NH. MEDICAL HISTORY Significant past medical history/treatment: reports the following significant past medical history/treatment, [...] reports wanting to learn more about the [place] Alert for Sia due to his falling. The [place] has chronic pain. Pain is primarily located: [place] reports pain from his gastric ulcer, shoulder, and hip (if he walks too much). Expectations for treatment: [place] reports the physical therapy exercises are to strengthen his hip since he cannot have a replacement. Impact of pain on quality of life: [place] reports there are things he can't do anymore. He states he would like to walk more or go to plays, but can't. Current pharmacological treatments for pain: reports he was offered Tramadol; however, he did not want to take this. He states he was offered a different opioid but declined this too. Compliance with pain medications: N/A Nonpharmacological treatments for pain: reports he uses a heating pad a lot and ice. The has a typical exercise/activity routine. Details: [place] reports doing the bridge and clam exercises from physical therapy; these are both challenging for him. He states doing them daily. The reports concerns regarding memory and/or cognition. How does this impact [place]'s daily activities? [place] reports having some memory loss and tries to help maintain his memory by playing chess. [place] denies other impacts. The has not had formal testing related to memory/cognition. MENTAL HEALTH/SUBSTANCE USE HISTORY Significant mental health/substance use history/treatment: [place] denies any significant mental health/substance use history/treatment. PHQ-2 A PHQ-2 screen was performed. The score was 0 which is a negative screen for depression. Over the past two weeks, how often have you been bothered by the following problems? 1. Little interest or pleasure in doing things Not at all 2. Feeling down, depressed, or hopeless Not at all [place] Suicide Severity Rating Scale (C-SSRS) screener 1. [...] due to responses to other questions. The [place] reports that there are no current or past concerns regarding IPV domestic violence or safety. The reports currently feeling safe in their home. Current alcohol use: Not at all Current substance use: Not At All Current tobacco use: Not at all [place] has access to opioids: No Other addictive behaviors (i.e. gambling, sex, dom, etc.): Not at all The [place] is not currently receiving NH Alcohol/Substance Abuse treatment. The is not interested in a referral for VA Alcohol/Substance Abuse treatment at this time. has access to firearms: Yes Firearm safety discussed with : Yes Gunlock offered to [place]: Yes - requests 1 gunlock be mailed to him at address in chart. The [place] was offered information on the [place]'s Crisis Line, including contact number: Dial [phone] then Press 1 for Veterans and/or Text Service [phone] LEGAL/FINANCIAL HISTORY The does not report any current legal concerns. The does not report any current personal financial concerns. CURRENT GOALS [place]'s stated overall functional goals: [place] reports he would like to be able to go to the [employer] in [place], [place]. How does the report that the caregiver supports the [place]'s overall goals? [place] reports she does all the cooking, cleaning, laundry, driving, and attending his doctors appointments. He states, without her I would have to be in a jail. SUPPORT SERVICES The is not currently receiving home care services. Support services currently used:* None Discussion about NH Personal Care Services and [facility] enrollment/participation: Not applicable = CAREGIVER INPUT SECTION = Caregiver's understanding of the Program of Comprehensive Assistance for caregiver/applicant(s) and why they decided to apply: Primary Family Caregiver Applicant reports [place] is a fall risk and is unable to walk easily by himself. Caregiver's description of [place]'s self-care: The following responses are per Primary Family Caregiver Applicant report: -Feeding: She states [place] is independent with feeding. -Dressing: She states she has to assist with putting on shirts depending on his pain level in right shoulder. -Grooming: She states [place] is independent with grooming. -Bathing: She states is independent with bathing. -Toileting: She states [place] is independent with toileting. -Mobility/Transfers: She states [...] Caregiver Applicant reports it's been hard because [place] was very active and this has been a hard adjustment for him. Type of assistance that the caregiver provides to address [place]'s needs in completing activities of daily living: Please see above. Type of assistance caregiver provides due to neurological, cognitive or mental health needs: Primary Family Caregiver Applicant reports [place] may forget to take his medications, this isn't often. She denies other types of assistance with neurological, cognitive or mental health needs. Caregiver's description of how convention planner and meal planning are performed, who performs the duties, and any established routines: Primary Family Caregiver Applicant reports she is responsible for all convention planner and meal planning/preparing. [place] needs assistance with the convention planner and/or family activities that he completes. Details: Primary Family Caregiver Applicant reports she would have to bring the rollator for him and transport him to any of the places he needed to go. The [place] does not drive independently. The caregiver attends the [place]'s medical and/or mental health appointments with him. Details: Primary Family Caregiver Applicant reports she attends 's medical appointments with him and provides transportation. Caregiver's knowledge and understanding of the treatment recommendations for the [place]: Primary Family Caregiver Applicant reports having a good knowledge and understanding of 's treatment recommendations. The caregiver reports concerns for the 's safety. Caregiver's description of strategies used to address problems [place] has in maintaining safety as well as the type of assistance the caregiver provides: Primary Family Caregiver Applicant reports concern of [place] falling. She states his falls are more [...] Primary Family Caregiver Applicant reports caring for [place]'s feet due to his diabetes. SUMMARY OF VISIT: Chemical Unit Operator met with and Primary Family Caregiver Applicant on this date for assessment for [facility] program; and Primary Family Caregiver Applicant were well involved in this assessment. Primary Family Caregiver Applicant is identified as [place]'s spouse with whom he lives. is 90% Service Connected and identified chronic issues with his atrial fibrillation and pain for which he reportedly requires assistance from Primary Family Caregiver Applicant with dressing and mobility/transfers. Primary Family Caregiver Applicant reportedly completes majority of IADL tasks for . Primary Family Caregiver Applicant reports physical therapy did not heal fully and states providers won't do a hip replacement due to his age and atrial fibrillation. Discussed ability to submit non-VA records as part of application process and highlighted importance of recent/relevant and the timeline for record submission. At this time, [place] will be submitting outside medical records from his Physical Therapy; reviewed goal to submit these records within 30 days of VARD. Chemical Unit Operator provided psychoeducation regarding [facility] program benefits, eligibility criteria, application steps and option for Veterans to submit outside VA medical records for inclusion in this application. Both and Primary Family Caregiver Applicant verbalized understanding and denied any further questions or needs at this time. Education provided on the [place] Alert. CSP staff will coordinate the following: [place] Functional Assessment Instrument Caregiver/applicant(s) assessment /cristiane/ BERRY TRIMBLE Staple Shear Operator, Caregiver Support Program Signed: 10/27/2024 18:19 /es/ GEORIGA BRDASHAW Staple Shear Operator, Caregiver Support Program Cosigned: 10/30/2024 08:58 10/30/2024 ADDENDUM STATUS: COMPLETED This COMMERCIAL CRABBER clinical building construction supervisor reviewed this documentation and concurs with the information and impressions contained in this note. The services provided by the [facility] are reviewed during weekly [id number] supervision. The clinical supervision meets, or exceeds, supervision amounts required by the standards of both the National Association of Social Work Boards Accreditation and the [place] Committee for Social Workers. /cristiane/ [place] BRADSHAW Staple Shear Operator, Caregiver Support Program Signed: 10/30/2024 08:58 BERRY TRIMBLE [facility] Oct 27, 2024 12:33 PM TELEHEALTH NOTE: LOCAL TITLE: V15 [facility] DIGITAL DIVIDE SET-UP REVIEW STANDARD TITLE: TELEHEALTH NOTE DATE OF NOTE: OCT 27, 2024@12:33 ENTRY DATE: OCT 27, 2024@12:33:41 AUTHOR: BERRY TRIMBLE EXP COSIGNER: URGENCY: STATUS: COMPLETED Patient is interested in [facility] Health Care appointments. [facility] requirements have been communicated to the [place]. The [place] confirms understanding of those requirements and indicates the following VVC needs: confirms they have their own VVC capable equipment and/or request a 2nd video test call. The Provider and [place] agree to the use of Telehealth and the confirms they have their own smart device (smart phone, tablet, laptop, or computer) with a camera AND audio. [place] has been informed to call the Office of Connected Care Health Desk([facility]) at [phone] Option 1 for a test call and that a NH staff member will also call. 'S RIGHT TO DECLINE STATEMENT [place] understands they have the right to decline the use of Telehealth Technology at any time without adverse affects on their continued access to healthcare. /cristiane/ BERRY TRIMBLE Staple Shear Operator, Caregiver Support Program Signed: 10/27/2024 12:46 BERRY TRIMBLE [facility] Oct 27, 2024 09:09 AM CAREGIVER CERTIFIC ATE: LOCAL TITLE: [facility] PCA ASSESSMENT STANDARD TITLE: CAREGIVER CERTIFICATE DATE OF NOTE: OCT 27, 2024@09:09 ENTRY DATE: OCT 27, 2024@09:10:35 AUTHOR: BERRY TRIMBLE EXP COSIGNER: [place] BRADSHAW URGENCY: STATUS: COMPLETED [facility] ASSESSMENT Has ADDENDA Program of Comprehensive Assistance for Family Caregivers [place] Assessment The Program of Comprehensive Assistance for [...] identifier(s): Full name: ROSEMARY LEWIS Full SSN: [id number] Date of : Aug Diagnosis: Paroxysmal atrial fibrillation ([facility] [id number]) - Paroxysmal atrial fibrillation (ICD-10-CM I48.0) (Primary) The interview was conducted using the telephone. Reviewed limits of confidentiality with the and caregiver/applicant(s). Brief description of why the [place] and caregiver/applicant(s) are applying to or participating in the program: reports he has trouble getting around, uses a cane and rollator. He states he doesn't do well on stairs, and doesn't cook or do laundry. Primary Family Caregiver Applicant reports [place] is not able to walk well or stand for longer periods ([place] states he can't stand for more than 3 minutes). CURRENT LIVING SITUATION The following live in the [place]'s household: Name: Anel Lewis Age: 82 Relationship: /Primary Family Caregiver Applicant Special needs: The does not provide care for anyone in the household. The [place] does not participate in care of the home or property. The does not drive independently. When did last drive: reports last driving January 2024. Additional information: reports he was driving some before January 23 (surgery on this date) and has not driven since then. EMPLOYMENT HISTORY The is not currently employed. When was [place] last employed? reports he last worked over 20 years ago, when he was 64. EDUCATION HISTORY The has barriers to education. Details of barriers to education: [place] reports his age and physical health as barriers. The [place] is not attending school. The is or wishes to pursue enrollment: No SOCIAL HISTORY What does the [place]'s typical day look like? [place] reports they wake up and eat breakfast. He states he walks around downstairs a bit, watches TV, and may walk outside in his yard briefly. He did not expand on a typical day beyond this. What does the do for leisure/relaxation? states he will play Solitaire or chess on the computer. CURRENT PROVIDERS The [place] is currently receiving VA Primary Care or [facility] Care in the Community Primary Care. Provider's name: TITA Diamond The [place] is not currently participating in other VA programs/services. The is not currently receiving VA Mental Health or Substance Use treatment. The [place] is not currently receiving care outside of VA. MEDICAL HISTORY Significant past medical history/treatment: reports the following significant past medical history/treatment, [...] reports wanting to learn more about the [place] Alert for Sia due to his falling. The [place] has chronic pain. Pain is primarily located: reports pain from his gastric ulcer, shoulder, and hip (if he walks too much). Expectations for treatment: [place] reports the physical therapy exercises are to strengthen his hip since he cannot have a replacement. Impact of pain on quality of life: reports there are things he can't do anymore. He states he would like to walk more or go to plays, but can't. Current pharmacological treatments for pain: reports he was offered Tramadol; however, he [...] him. He states doing them daily. The [place] reports concerns regarding memory and/or cognition. How does this impact 's daily activities? reports having some memory loss and tries to help maintain his memory by playing chess. denies other impacts. The [place] has not had formal testing related to [...] down, depressed, or hopeless Not at all [place] Suicide Severity Rating Scale (C-SSRS) screener 1. [...] sex, dom, etc.): Not at all The [place] is not currently receiving NH Alcohol/Substance Abuse treatment. The [place] is not interested in a referral for VA Alcohol/Substance Abuse treatment at this time. has access to firearms: Yes Firearm safety discussed with : Yes Gunlock offered to [place]: Yes - requests 1 gunlock be mailed to him at address in chart. The [place] was offered information on the 's Crisis Line, including contact number: [phone] 1 for Veterans and/or Text Service [phone] LEGAL/FINANCIAL HISTORY The does not report any current legal concerns. The [place] does not report any current personal financial concerns. CURRENT GOALS [place]'s stated overall functional goals: reports he would like to be able to go to the [employer] in [place], [place]. How does the report that the caregiver supports the 's overall goals? reports she does all the cooking, cleaning, laundry, driving, and attending his doctors appointments. He states, without her I would have to be in a jail. SUPPORT SERVICES The is not currently receiving home care services. Support services currently used:* None Discussion about NH Personal Care Services and [facility] enrollment/participation: Not applicable = CAREGIVER INPUT SECTION = Caregiver's understanding of the Program of Comprehensive Assistance for caregiver/applicant(s) and why they decided to apply: Primary Family Caregiver Applicant reports [place] is a fall risk and is unable to walk easily by himself. Caregiver's description of [place]'s self-care: The following responses are per Primary Family Caregiver Applicant report: -Feeding: She states [place] is independent with feeding. -Dressing: She states she has to assist with putting on shirts depending on his pain level in right shoulder. -Grooming: She states [place] is independent with grooming. -Bathing: She states is independent with bathing. -Toileting: She states [place] is independent with toileting. -Mobility/Transfers: She states [...] Caregiver Applicant reports it's been hard because [place] was very active and this has been a hard adjustment for him. Type of assistance that the caregiver provides to address 's needs in completing activities of daily living: Please see above. Type of assistance caregiver provides due to neurological, cognitive or mental health needs: Primary Family Caregiver Applicant reports [place] may forget to take his medications, this isn't often. She denies other types of assistance with neurological, cognitive or mental health needs. Caregiver's description of how convention planner and meal planning are performed, who performs the duties, and any established routines: Primary Family Caregiver Applicant reports she is responsible for all convention planner and meal planning/preparing. needs assistance with the convention planner and/or family activities that he completes. Details: Primary Family Caregiver Applicant reports she would have to bring the rollator for him and transport him to any of the places he needed to go. The [place] does not drive independently. The caregiver attends the 's medical and/or mental health appointments with him. Details: Primary Family Caregiver Applicant reports she attends [place]'s medical appointments with him and provides transportation. Caregiver's knowledge and understanding of the treatment recommendations for the [place]: Primary Family Caregiver Applicant reports having a good knowledge and understanding of [place]'s treatment recommendations. The caregiver reports concerns for the 's safety. Caregiver's description of strategies used to address problems has in maintaining safety as well as the type of assistance the caregiver provides: Primary Family Caregiver Applicant reports concern of [place] falling. She states his falls are more random with frequency and location. She states [place] told her he was in the garage this past week and he was trying to move a chair (similar to a recliner) and almost fell doing this. Type of preparations the caregiver needs to complete for the [place] in their absence: Primary Family Caregiver Applicant reports making sure [place] has food within reach and he is on the lower level of the house so he doesn't have to go on the stairs unsupervised. The Caregiver assists the [place] with the following additional concerns and/or additional care needs: Primary Family Caregiver Applicant reports caring for 's feet due to his diabetes. SUMMARY OF VISIT: Chemical Unit Operator met with [place] and Primary Family Caregiver Applicant on this date for assessment for [employer] program; and Primary Family Caregiver Applicant were well involved in this assessment. Primary Family Caregiver Applicant is identified as [place]'s spouse with whom he lives. [place] is 90% Service Connected and identified chronic issues with his atrial fibrillation and pain for which he reportedly requires assistance from Primary Family Caregiver Applicant with dressing and mobility/transfers. Primary Family Caregiver Applicant reportedly completes majority of IADL tasks for . Primary Family Caregiver Applicant reports physical therapy did not heal fully and states providers won't do a hip replacement due to his age and atrial fibrillation. Discussed ability to submit non-VA records as part of application process and highlighted importance of recent/relevant and the timeline for record submission. At this time, will be submitting outside medical records from his Physical Therapy; reviewed goal to submit these records within 30 days of VARD. Chemical Unit Operator provided psychoeducation regarding [employer] program benefits, eligibility criteria, application steps and option for Veterans to submit outside VA medical records for inclusion in this application. Both [place] and Primary Family Caregiver Applicant verbalized understanding and denied any further questions or needs at this time. Education provided on the [place] Alert. [facility] staff will coordinate the following: [place] Functional Assessment Instrument Caregiver/applicant(s) assessment /cristiane/ BERRY Paniagua, Caregiver Support Program Signed: 10/27/2024 18:19 /cristiane/ GEORGIA BRADSHAW Staple Shear Operator, Caregiver Support Program Cosigned: 10/30/2024 08:58 10/27/2024 ADDENDUM STATUS: COMPLETED Primary Family Caregiver Applicant reports wanting to learn more about the [place] Alert device for due to his falling. Please follow up, thank you. /aspen Paniagua, Caregiver Support Program Signed: 10/27/2024 18:20 /aspen BRADSHAW Staple Shear Operator, Caregiver Support Program Cosigned: 10/30/2024 08:43 Receipt Acknowledged By: * AWAITING SIGNATURE * JANICE DIAMOND * AWAITING SIGNATURE * YUVAL DAS 10/30/2024 ADDENDUM STATUS: COMPLETED This [facility] clinical building construction supervisor reviewed this documentation and concurs with the information and impressions contained in this note. The services provided by the [facility] are reviewed during weekly [id number] supervision. The clinical supervision meets, or exceeds, supervision amounts required by the standards of both the [employer] Accreditation and the [place] [employer]. /aspen BRADSHAW Staple Shear Operator, Caregiver Support Program Signed: 10/30/2024 08:58 BERRY TRIMBLE [facility]
--- OUTSIDE RECORDS SUMMARY | 2025-04-01 08:49 | XMS_ITS | Data Portability ---
Author Organization [place] [employer], Main Office Address [address] [place] [address] Care Team Providers Care Landscape Horticulture Instructor Name Role Phone JACINTO VELASQUEZ Primary Care Provider JACINTO VELASQUEZ Referring Provider [phone] GIORGIO DOYLE Patent Attorney HANY LING Orthopedic Surgeon [phone] MITA YOUNGBLOOD Tire Rebuilder JONNA MARIE Paper Bundler Assessment Encounter Date Assessment Date Assessment LastModified by Organization Details LastModified Time 05/19/2024 05/19/2024 This note is dictated and transcribed by [employer]. Lockstitch Shoulder Joiner variances may occur. Despite proofreading, typographical errors may occur. Occasional wrong-word or 'tegot-o-nctq' substitutions may have occurred due to the [...] his xrays Not available 07/14/2024 18:21:45 10/22/2024 10/22/202402/0102/01/2023: A1C 7.9 Gluc 183 HGB 12.6 06/28/2023: A1C 7.4 Gluc 138, BUN 24, Alb 4.5H, TP WNL 11/22/2023: Gluc 134 TSH 4.4, FT4 1.50 A1C 7.1 04/04/2024: A1C 6.6 07/04/2024: A1C 7.5 10/17/2024: K 5.1 A1C 6.7 [email or web address] Not available 10/22/2024 11:37:00 11/19/2024 11/19/2024 02/01/2023: A1C 7.9 Gluc 183 HGB 12.6 06/28/2023: A1C 7.4 Gluc 138, BUN 24, Alb 4.5H, TP WNL 11/22/2023: Gluc 134 TSH 4.4, FT4 1.50 A1C 7.1 04/04/2024: A1C 6.6 07/04/2024: A1C 7.5 10/17/2024: K 5.1 A1C 6.7 11/13/2024:[facility] labs H/H 12.9/40.4 Gluc 164, ALT 350, ALP 279 I have reconciled the patient's medications post their discharge from inpatient facility. [email or web address] Not available 11/19/2024 18:07:25 01/21/2025 01/21/2025 02/01/2023: A1C 7.9 Gluc 183 HGB 12.6 06/28/2023: A1C 7.4 Gluc 138, BUN 24, Alb 4.5H, TP WNL 11/22/2023: Gluc 134 TSH 4.4, FT4 1.50 A1C 7.1 04/04/2024: A1C 6.6 07/04/2024: A1C 7.5 10/17/2024: K 5.1 A1C 6.7 11/13/2024:[facility] labs H/H 12.9/40.4 Gluc 164, ALT 350, ALP 279 01/19/2025: A1C 6.9 BUN 29, GFR 58, ALT 68 H/H 12.5/40.4 Not available 01/20/2025 19:30:45 Plan of Treatment Reminders Order Date Submit Date Provider Last Modified By Organization Details Last Modified Time Details Appointments Follow Up 15 2024 01:00P Jaime cao MD Not available Not available Not available Lab glycohemo globin, total, blood [address], [address] [place], [address], 01/21/2025 14:24:34 microalbu min, urine [address], [address] [place], [address], 01/21/2025 14:24:34 lipid panel, serum [address], [address] [place], [address], 01/21/2025 14:24:34 CMP, serum or plasma [address], [address] [place], [address], 01/21/2025 14:24:34 TSH, serum or plasma [address], [address] [place], [address], 01/21/2025 14:24:34 CBC w/ auto diff [address], [address] [place], [address], 01/21/2025 14:24:34 T4, free, serum [address], [address] [place], [address], 01/21/2025 14:24:35 hepatitis panel (A+B+C), acute, serum 2024 025 [email or web address] [facility], [address] , [place], [address], 01/28/2025 09:20:17 gamma-glu tamyl transfera se (ggt), serum 2024 025 [email or web address] [facility], [address] [facility], [place], [address], 01/28/2025 09:20:26 potassium , serum or plasma [address], [address] [place], [address], 12/05/2024 15:51:14 glycohemo globin, total, blood [address], [facility] [place], [address], 12/05/2024 15:51:13 microalbu min, urine [address], [facility] [place], [address], 12/05/2024 15:51:13 lipid panel, serum [address], [address] [place], [address], 12/05/2024 15:51:13 CMP, serum or plasma 2024 025 LISA [facility], [facility] [place], [address], 01/19/2025 13:03:50 TSH, serum or plasma [address], [facility] [place], [address], 12/05/2024 15:51:14 CBC w/ auto diff 2024 025 LISA [facility] [place], [address], [place], [address], 01/19/2025 13:03:51 T4, free, serum 2024 025 [facility] [place], [address], [place], [address], 12/05/2024 15:51:14 potassium , serum or plasma [address] (Lab), [address], [place], [address], 10/30/2024 12:04:37 glycohemo globin, total, blood 2023 024 [facility] (Lab), [address], [place], [address], 10/22/2024 12:30:50 microalbu min, urine 2023 024 [facility] (Lab), [address], [place], [address], 10/22/2024 12:30:49 lipid panel, serum 2023 024 [facility] (Lab), [address], [place], [address], 10/22/2024 12:30:50 CMP, serum or plasma 2023 024 [facility] (Lab), [address], [place], [address], 10/22/2024 12:30:50 TSH, serum or plasma 2023 024 [facility] (Lab), [address], [place], [address], 10/22/2024 12:30:49 CBC w/ auto diff 2023 024 [facility] (Lab), [address], [place], [address], 10/22/2024 12:30:50 T4, free, serum 2023 024 [facility] (Lab), [address], [place], [address], 10/22/2024 12:30:50 glycohemo globin, total, blood 2023 024 [email or web address] Not available 01/13/2025 10:07:32 microalbu min, urine 2023 024 [email or web address] Not available 01/13/2025 10:07:32 lipid panel, serum 2023 024 [email or web address] Not available 01/13/2025 10:07:32 CMP, serum or plasma 2023 024 [email or web address] Not available 01/13/2025 10:07:33 TSH, serum or plasma 2023 024 [email or web address] Not available 01/13/2025 10:07:33 CBC w/ auto diff 2023 024 [email or web address] Not available 01/13/2025 10:07:33 T4, free, serum 2023 024 [email or web address] Not available 01/13/2025 10:07:33 Referral orthopedi c surgeon referral - Please call patient to schedule an appointme nt. Thank you. 2024 025 [facility], [address], [address], [place], [address], 01/21/2025 18:40:43 cardiolog ist referral - Please call patient to schedule an appointme nt. Thank you. 2024 025 [facility], [address], [place], [address], 01/21/2025 19:15:22 orthopedi c surgeon referral 2024 025 [email or web address] Isaiah Mccartney MD, [address] [facility] [address], [place], [address], 12/05/2024 15:51:17 cardiolog ist referral 2024 025 [email or web address] Jaeger, [address], [place], [address], 12/05/2024 15:51:16 podiatris t referral 2024 025 [email or web address] Doyle DPM, [address], [address], [place], [address], 12/05/2024 15:51:17 orthopedi c surgeon referral 2023 024 [email or web address] Isaiah Mccartney MD, [address] [facility] [address], [place], [address], 10/23/2024 11:37:40 cardiolog ist referral 2023 024 Tanmay Jaeger, [address], [place], [address], 10/23/2024 11:37:39 podiatris t referral 2023 024 [email or web address] Giorgio Doyle DPM, [address], [address], [place], [address], 10/23/2024 11:37:39 orthopedi c surgeon referral 2023 024 [email or web address] 2 Isaiah Mccartney MD, [address] [facility] [address], [place], [address], 02/02/2025 09:03:28 cardiolog ist referral 2023 024 [email or web address] Tanmay Jayhir, [address], [place], [address], 08/12/2024 16:14:25 podiatris t referral 2023 024 [email or web address] Giorgio Doyle DPM, [address] [facility], [address], [place], [address], 08/12/2024 16:14:24 Procedures None recorded. Surgeries None recorded. Imaging US, liver - Please call patient to schedule. 2024 025 [facility], [address], [place], [address], 01/28/2025 08:08:31 Medication Orders None recorded. Patient TargetsNo targets recorded. Patient Instructions Encounter Date Encounter Id Patient Instructions Last Modified By Organization Details Last Modified Time 11/19/2024 [id number] Thank you for your visit to our office today. We would [...] Not available 11/19/2024 17:42:06 Homebound Status : Patient has an inability to leave the home without a taxing effort and assistance from another person Required Home Health Services: none Durable Medical Equipment needed: walker Billing Guidelines CPT code 71022- Transitional Care Management services with moderate medical decision complexity (pigm-ll-mjpw visit within 14 days of discharge). CPT code 12416- Transitional Care Management services with high medical decision complexity (etdm-ky-rwbi visit within 7 days of discharge). Not available 11/19/2024 17:49:24 Reason for Referral Patent Attorney Referral for Type 2 diabetes mellitus without complication Referring Physician: Jacinto Velasquez Internal Medicine, Encounter Date: 07/14/2024 Tire Rebuilder Referral for Pa roxysmal atrial fibrillation Referring Physician: Carissa Dozier, Encounter Date: 07/14/2024 Orthopedic Surgeon Referral for Pain of bilateral hip joints Referring Physician: Jacinto Velasquez Internal Medicine, Encounter Date: 07/14/2024 Patent Attorney Referral for Type 2 diabetes mellitus without complication Referring Physician: Carissa Dozier Medicine, Encounter Date: 10/22/2024 Tire Rebuilder Referral for Pa roxysmal atrial fibrillation Referring Physician: Carissa Dozier, Encounter Date: 10/22/2024 Orthopedic Surgeon Referral for Pain of bilateral hip joints Referring Physician: Carissa Dozier, Encounter Date: 10/22/2024 Patent Attorney Referral for Type 2 diabetes mellitus without complication Referring Physician: Carissa Dozier, Encounter Date: 11/19/2024 Tire Rebuilder Referral for Pa roxysmal atrial fibrillation Referring Physician: Carissa Dozier, Encounter Date: 11/19/2024 Orthopedic Surgeon Referral for Pain of bilateral hip joints Referring Physician: Carissa Dozier, Encounter Date: 11/19/2024 Tire Rebuilder Referral for Pa roxysmal atrial fibrillation Please call patient to schedule an appointment. Thank you. Referring Physician: Carissa Dozier, Encounter Date: 01/21/2025 Orthopedic Surgeon Referral for Pain of bilateral hip joints Please call patient to schedule an appointment. Thank you. Referring Physician: Carissa Dozier, Encounter Date: 01/21/2025 Results Created Date Observation Date Name Description Value Unit Range Abnormal Flag Note LastModifiedBy Organization Detail LastModifiedTime 05/23/20 24 05/21/2024 inj large jnt hip knee [facility] [address], [place] [address] [phone] Patistevie t Name: ANNETTE LEWIS IEL Access ion #: [id number] Sex: M : 1934 2 Locati on: [...] SHARMILA: Radiog raphs dated 2023. TECHNI QUE: PRE-OK OCEDUR E: The patien t was ashly [...] was perfor med. Page 1 of 3 [facility] Javan sloan Name: ANNETTE LEWIS IEL Access ion #: [id number] Sex: M : 1934 2 Exam Date: [...] Page 2 of 3 [facility] Patien t Name: ANNETTE LEWIS IECornelio Access ion #: [id number] Sex: M : 1934 2 Exam Date: 9:04 AM Exam Name: XR INJ LG JNT HIP/KN EE/PRABHA ULDR Admitt ing Diagno sis(es ): DD: 7/19/2 024 9:34 AM (CT) DT: 024 9:34 AM (CT) Page 3 of [address] (Imaging) [address] [place], [address], 05/23/2024 10:44:10 05/23/20 24 05/21/2024 imagi ng/di agnos tic resul t No observ ation record ed. [facility] [address] [place], [address], 05/23/2024 10:39:25 06/11/20 24 06/11/2024 imagi ng/di agnos tic resul t No observ ation record ed. [address] [address], [place], [address], 06/11/2024 18:29:35 06/11/20 24 06/11/2024 imagi ng/di agnos tic resul t No observ ation record ed. [address] [address], [place], [address], 06/11/2024 18:37:33 06/11/20 24 06/11/2024 imagi ng/di agnos tic resul t No observ ation record ed. [address] [address], [place], [address], 06/11/2024 18:43:49 11/07/19 25 11/07/2024 imagi ng/di agnos tic resul t No observ ation record ed. [address] [address], [place], [address], 11/07/2024 14:37:03 11/08/19 25 11/08/2024 imagi ng/di agnos tic resul t No observ ation record ed. [address] [address], [place], [address], 11/08/2024 15:46:15 01/29/20 25 01/27/2025 US, liver No observ ation record ed. [email or web address] [facility] [address], [place], [address], 02/11/2025 17:22:23 Result Notes None recorded. Problems Name Problem SNOMED Code Status Onset Date Resolution Date Notes Provider Name and Address Organization Details Recorded Time Abnormal gait 65472202 Active 2022 Not Available [facility] 4 08:54:30 Gastroesop hageal reflux disease without esophagiti s 764176598 Active 2022 Not Available [facility] 4 08:54:30 Erectile dysfunctio n 712686477 Active 2022 Not Available [facility] 4 08:54:30 Pain of right shoulder joint 6798953334200 9100 Active 2022 Not Available [facility] 4 08:54:30 Dystrophia unguium 46561385 Active 2022 Not Available [facility] 4 08:54:30 Diabetic peripheral neuropathy 747289043 Active 2022 Not Available [facility] 4 08:54:30 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 2554104406722 00 Active 2022 Not Available [facility] 4 08:54:30 Bronchitis 86828956 Active 2022 Not Available [facility] 4 08:54:30 Coronary arterioscl erosis 05450839 Active 2023 Jacinto shay MD [address], [place], [address] , [facility] [employer] 4 11:43:30 Paroxysmal atrial fibrillati on 423166224 Active 2023 Jacinto shay MD [address], [place], [address] , [facility] [employer] 4 11:45:40 Unsteady when walking 21361265 Active 2023 Jacinto shay MD [address], [place], [address] , [facility] 4 12:49:16 Chronic low back pain 390957647 Active 2023 Jacinto shay MD [address], [address], [place], [address] , [facility] 4 11:40:24 Radiology result abnormal 443853748 Active 2023 Cely Morales MA null, [place] [facility] 4 16:42:40 Pain of bilateral hip joints 7312015661526 9100 Active 2023 Kim Mary CNA null, [place] [facility] 4 11:38:20 Laboratory test result abnormal 938744542 Active 2023 Cely Morales MA null, [place] [facility] 4 10:24:17 Osteoarthr itis of bilateral hip joints 5714700331951 05 Active 2023 FAUZIA Irwin [address], [address], [place], [address] , [facility] 4 11:19:45 Pain of right hip joint 2216116722366 Active 2023 FAUZIA Irwin [address], [address], [place], [address] , [facility] 4 11:20:07 Small bowel obstructio n 038154578 Active 2023 Jacinto shay MD [address], [address], [place], [address] , [facility] 4 17:53:12 Osteoarthr itis of right hip joint 8371647633599 07 Active 2023 Gregoria taylor, [place] [facility] [place] [facility] 4 16:11:53 Osteoarthr itis of hip 722839666 Active 2023 Gregoria taylor, [place] [facility] [place] [facility] 4 16:12:05 Hyperkalem ia 97897114 Active 2023 Jacinto shay MD [address], [address], [place], [address] , [place] [facility] [place] [facility] 4 19:24:57 Liver enzymes level above reference range 698666182 Active 2024 Jacinto shay MD [address], [address], [place], [address] , [place] [facility] [place] [facility] 5 17:48:28 Skin lesion 54789538 Active 2024 Jacinto shay MD [address], [address], [place], [address] , [place] [facility] [place] [facility] 5 11:25:16 Edema of lower extremity 695389849 Active 2020 Not Available [employer] 4 08:54:30 History of arthroplas ty of right knee 7818490603164 106 Active 2021 Not Available [employer] 4 08:54:30 Gastroesop hageal reflux disease 658624175 Active 2017 Not Available [employer] 4 08:54:30 Osteoarthr itis of knee 803111654 Active 2021 Not Available [employer] 4 08:54:30 Anemia 562100322 Active 2019 Not Available [facility] 4 08:54:30 Foot swelling 547630893 Active 2019 Not Available [employer] 4 08:54:30 Knee pain Active Not Available [employer] 4 08:54:30 Type 2 diabetes mellitus without complicati on 471608445 Active 2017 Not Available [employer] 4 08:54:30 Osteoarthr itis of right knee joint 1435718322933 00 Active 2021 Not Available [employer] 4 08:54:30 Osteoarthr itis 096265371 Active Not Available [facility] 4 08:54:30 Hyperlipid emia 81069158 Active 2017 Not Available [facility] 4 08:54:30 Diabetes mellitus 66942846 Active 2016 Not Available [facility] 4 08:54:30 Gout 59262373 Active 2017 Not Available [facility] 4 08:54:30 Notes:Some problems listed i n Document: #[id number] could not be added to this patient's chart. Please review this document and add these problems to the patient's chart manually as needed. Problem Notes None recorded. Procedures Surgical History Date Name Laterality Status Provider Name and Address Organization Details Recorded Time 11/19/19 25 Transitional_Car e_Management completed Jacinto Velasquez MD [address], [address], [place], [address], [facility] [employer] [facility] [employer] [facility] 11/19/2024 17:47:32 05/19/20 24 Nail Debridement completed Giorgio Doyle DPM [address], [address], [place], [address], [employer] [facility] [employer] 05/19/2024 11:39:35 04/09/20 24 Medicare Wellness CPT Code, subsequent completed Tyrone Gutierrez LPN [employer] [facility] [employer] 04/04/2024 10:07:34 01/23/20 24 partial excision of small intestine completed SONIDO Colvin [employer] [facility] Anita Margarita [facility] 04/09/2024 10:41:50 07/16/20 23 Nail Debridement completed Giorgio Doyle DPM [address], [address], [place], [address], [facility] [employer] [facility] Anita Margarita [facility] 07/16/2023 14:59:06 04/09/20 23 Nail Debridement completed Giorgio Doyle DPM [address], [address], [place], [address], [facility] [employer] [facility] [employer] [facility] 04/09/2023 14:56:17 04/09/20 23 Medicare Wellness CPT Code, subsequent completed Amena Mejia RN [facility] 04/09/2023 11:30:03 Appendectomy completed Not Available [employer] 01/03/2023 04:41:38 Cardiac Stent Placement completed Dinorah Hoosk MA [facility] 11/19/2024 17:38:28 Imaging Results None recorded. Procedure Notes None recorded. Medical Equipment None Reported. Allergies Allergen ID Allergen Name Allergen Category Reaction Reaction Severity Criticality Documentation Date Start Date Code Code System Note Provider Name and Address Organization Details Recorded Time 26589 lisinopri l medicatio n dizziness Not available Not available 07/16/2023 29119 RxNorm SONIDO Colvin brandon, [facility] 12:00:19 Medications Name Sig Start Date Stop Date Status Note LastModified by Organization Details LastModified Time atorvasta tin 40 mg tablet TAKE 1 TABLET BY MOUTH EVERY DAY active Not Available Not Available No t Available metformin 500 mg tablet TAKE TWO TABLETS BY MOUTH TWICE A DAY FOR 90 DAYS 01/21 completed Not Available Not Available Not Available atorvasta tin 80 mg tablet TAKE 1 TABLET BY MOUTH EVERY EVENING 01/21 completed Not Available Not Available Not Available prednison e 10 mg tablet PLEASE [...] Not Available sucralfat e 1 gram tablet TAKE 1 TABLET BY MOUTH FOUR TIMES DAILY FOR 4 WEEKS active Not Available Not Available No t Available bupivacai ne HCl 0.5 % (5 [...] t Available clopidogr el 75 mg tablet Take 1 tablet every day by oral route for 90 days. active Not Available Not Available No t Available ciproflox acin 250 mg tablet Take [...] DAY NEEDED FOR 15 DAYS WITH FOOD 04/09 completed Not Available Not Available Not [...] mL by injectio n route. 07/16 completed [facility]: [id number] 4-20 Not Available Not Available Not [...] layed release TAKE 1 TABLET BY MOUTH EVERY DAY 2024 active Not Available Not Available Not Avai lable Vitamin D2 1,250 mcg (50,000 unit) capsule Take 1 capsule by mouth every week 02/21 completed Not Available Not Available Not Available metformin ER 500 mg tablet,ex tended release 24 hr 01/21 completed Not Available Not Available Not Available amoxicill [...] mL by injectio n route. 07/16 completed [facility] 62503-94 02-03 Not Available Not Available Not Available Ilevro [...] saturation in Arterial blood by Pulse oximetry Systolic blood pressure Diastolic blood pressure Provider Name and Address Organization Details Last Updated DateTime 5 182.88 cm 21.3 kg/m2 45811 g 97.8 [degF] 92 /min 92 % 92 % 124 mm[Hg] 64 mm[Hg] Dinorah Hooks MA [place] [facility] [employer] 5 17:33:06 Date Recorded Body height Body mass index (BMI) Body weight Body temperature Heart rate Systolic blood pressure Diastolic blood pressure Provider Name and Address Organization Details Last Updated DateTime 5 182.88 cm 20.9 kg/m2 29921.2 2 g 97.8 [degF] 72 /min 110 mm[Hg] 60 mm[Hg] UNA ColvinIke [facility] [employer] [facility] 5 10:43:23 Date Recorded Body height Body mass index (BMI) Body weight Heart rate Systolic blood pressure Diastolic blood pressure Provider Name and Address Organization Details Last Updated DateTime 4 182.88 cm 21.2 kg/m2 01704.4 1 g 107 /min 144 mm[Hg] 85 mm[Hg] Tomasa Greene [facility] [employer] [facility] 4 11:01:43 Date Recorded Body height Body mass index (BMI) Body weight Body temperature Heart rate Respiratory rate Oxygen saturation Oxygen saturation in Arterial blood by Pulse oximetry Systolic blood pressure Diastolic blood pressure Provider Name and Address Organization Details Last Updated DateTime 4 182.88 cm 21.3 kg/m2 61891 g 97.7 [degF] 74 /min 18 /min 98 % 98 % 110 mm[Hg] 68 mm[Hg] Tyrone Gutierrez LPN [facility] [employer] [facility] 4 11:05:43 Date Recorded Body height Body mass index (BMI) Body weight Body temperature Heart rate Systolic blood pressure Diastolic blood pressure Provider Name and Address Organization Details Last Updated DateTime 4 182.88 cm 21.7 kg/m2 09287.7 8 g 97.6 [degF] 78 /min 118 mm[Hg] 70 mm[Hg] Maureen Mckeon Ike [facility] [employer] [facility] 4 11:28:52 Social History Question Answer Notes LastModified by Organizat ion Details LastModified Time Tobacco Smoking Status Never Smoker Not Available [employer] 01/03/2023 04:16:31 Do You Have An Advance Directive? Yes [email or web address] Information not available 04/09/2023 Are You Blind Or Do You Have Difficulty Seeing? No [email or web address] Information not available 04/09/2023 What Is Your Level Of Caffeine Consumption? Occasional [id number] Information not available 01/03/2023 In The 14 Days Before Symptom Onset, Have You Had Close Contact With A Laboratory-confir med COVID-19 While That Case Was Ill? No Information not available 04/09/2023 In The 14 Days Before Symptom Onset, Have You Had Close Contact With A Person Who Is Under Investigation For COVID-19 While That Person Was Ill? No Information not available 04/09/2023 Are You Deaf Or Do You Have Serious Difficulty Hearing? No [email or web address] Information not available 04/09/2023 What Type Of Diet Are You Following? REGULAR [id number] Information not available 01/03/2023 What Is The Highest Grade Or Level Of School You Have Completed Or The Highest Degree You Have Received? [id number] MIGRATION.386833 0951 Information not available 01/03/2023 Have There Been Any Changes To Your Family Or Social Situation? No [email or web address] Information no t available 04/09/2024 What Is The Fluoride Status Of Your Home? Unknown [email or web address] Information not available 04/09/2024 Are There Any Guns Present In Your Home? No [email or web address] Information not available 04/09/2024 Do You Use Insect Repellent Routinely? Yes [id number] Information not available 01/03/2023 Where [facility] You Live? [facility] [email or web address] Information not available 04/09/2024 Presence Of Domestic Violence No [email or web address] Information no t available 04/09/2023 Guns Present In The Home? No [email or web address] Information not available 04/09/2024 Are You Able To Care For Yourself? Yes [email or web address] Information not available 04/09/2023 Are You Blind Or Do Yo Have Difficulty Seeing? No [email or web address] Information not available 04/09/2023 Are You Deaf Or Do You Have Serious Difficulty Hearing? No [email or web address] Information not available 04/09/2023 General Stress Level? Low Information not available 04/09/2023 Live Alone Of With Others? With Others [email or web address] Information not available 04/09/2023 Do You Have A Medical Power Of Boat Hand? Yes Information not available 04/09/2024 What Was The Date Of Your Most Recent Tobacco Screening? 01/21/2025 Information not available 01/21/2025 Do You Have Any Pets? No Information not available 04/09/2024 What Is Your Relationship Status? MIGRATION.023664 5754 Information not available 01/03/2023 Do You Use Your Seat Belt Or Car Seat Routinely? Yes Information not available 04/09/2023 Do You Have Smoke And Carbon Monoxide Detectors In Your Home? Yes MIGRATION.667703 5394 Information not available 01/03/2023 Are You Passively Exposed To Smoke? No MIGRATION.395199 4777 Information not available 01/03/2023 Are There Any Smokers In Your House? No MIGRATION.898366 7422 Information not available 01/03/2023 What Types Of Sporting Activities Do You Participate In? None [email or web address] Information not available 04/09/2024 Do You Use Sunscreen Routinely? Yes MIGRATION.409158 6540 Information not available 01/03/2023 Has Tobacco Cessation Counseling Been Provided? No N/a Information not available 07/16/2023 Have You Recently Traveled Abroad? No Information not available 04/09/2023 Do You Have Difficulty Walking Or Climbing Stairs? No [email or web address] Information not available 04/09/2023 Do You Have Any Dietary Restrictions? No MIGRATION.701423 9212 Information not available 01/03/2023 Sex: Unknown Functional Status Question Answer Note LastModified by ORDISSIMO Details LastModified Time Do you use any illicit or recreational drugs? No MIGRATION.467821 6792 Information not available 01/03/2023 Do you or have you ever used any other forms of tobacco or nicotine? No Information not available 07/16/2023 What is your level of alcohol consumption? None MIGRATION.102917 1717 Information not available 01/03/2023 Are you currently employed? No Retired [email or web address] Information not available 04/09/2024 Do you have transportation difficulties? No [email or web address] Information not available 04/09/2024 Are you able to walk? YESASSIST Walker Information not available 04/09/2024 Do you have difficulty doing errands alone? No [email or web address] Information not available 04/09/2023 Are you able to care for yourself? Yes [email or web address] Information n ot available 04/09/2023 Do you have difficulty dressing or bathing? No [email or web address] Information not available 04/09/2023 What is your exercise level? None [email or web address] Information not available 04/09/2024 Mental Status Question Answer Note LastModified by [employer] ion Details LastModified Time Do you feel stressed (tense, restless, nervous, or anxious, or unable to sleep at night)? [id number] MIGRATION.[id number] 26 Information not available 01/03/2023 Do you have difficulty concentrating, remembering or making decisions? No [email or web address] Information no t available 04/09/2023 Family History Relationship Description Onset Age of this Age Resolved Age Notes LastModified by Organization Details LastModified Time Sister Family history of malignant neoplasm [id number].021 [id number] Not available 01/03/2023 04:41:41 Sister Diabetes mellitus [id number].318 [id number] Not available 01/03/2023 04:41:41 Brother Family history of malignant neoplasm [email or web address] Not available 2023 11:36:30 Sister Family history of stroke [email or web address] Not available 2023 11:36:42 Medical History Condition Response DIABETES, TYPE Y ARTHRITIS Y ULCERS Y GOUT Y USE OF BLOOD THINNERS Y HIGH CHOLESTEROL / HYPERLIPIDEMIA Y Immunizations Vaccine Type Date Status Note Provider Nam e and Address Organization Details Recorded Time COVID-19, mRNA, LNP-S, PF, tam-sucrose, 30 mcg/0.3 mL 3 completed Maureen Mckeon RMA brandon, [facility] [employer] [facility] 11/13/2023 12:14:33 RSV, recombinant, protein subunit RSVpreF, adjuvant reconstituted, 0.5 mL, PF 4 completed Maureen Mckeon RMA null, [facility] [employer] [facility] 12/10/2023 17:42:14 pneumococcal polysaccharide PPV23 3 completed Maureen Mckeon RMA brandon, [facility] [employer] [facility] 08/22/2024 12:47:49 COVID-19, mRNA, LNP-S, PF, tam-sucrose, 30 mcg/0.3 mL 4 completed Maureen Mckeon RMA brandon, [facility] [employer] [facility] 08/22/2024 12:48:18 COVID-19, mRNA, LNP-S, PF, 100 mcg/0.5mL dose or 50 mcg/0.25mL dose 1 completed Not Available [facility] 07/16/2023 07:27:59 Influenza, split virus, quadrivalent, preservative 9 completed Not Available [facility] 07/16/2023 07:27:59 Pneumococcal conjugate PCV 13 9 completed Not Available [facility] 07/16/2023 07:27:59 Influenza, high-dose, quadrivalent, PF 2 completed Not Available [facility] 07/16/2023 07:27:59 Influenza, high-dose, quadrivalent, PF 1 completed Not Available [facility] 07/16/2023 07:27:59 Influenza, high-dose, quadrivalent, PF 0 completed Not Available [facility] 07/16/2023 07:27:59 Influenza, high-dose, trivalent, PF 9 completed Not Available [facility] 07/16/2023 07:27:59 Influenza, high-dose, trivalent, PF 8 completed Not Available [facility] 07/16/2023 07:27:59 Influenza, high-dose, trivalent, PF 4 completed VIDA Martin, [place] [employer] [facility] 08/11/2024 15:01:10 Past Encounters Encounter ID Performer Location Encounter Start Date Encounter Closed Date Diagnosis/Indication Diagnosis SNOMED-CT Code Diagnosis ICD10 Code Diagnosis Note [id number] [facility] [place] [address], [place] [address] 02/21/2021 00:00:00 02/21/2021 09:58:48 [id number] [facility] [place] [address] [place] [address] 04/27/2021 00:00:00 04/29/2021 17:25:20 [id number] Maylin Coleman MD [place] [address], [place] [address] 08/16/2021 00:00:00 08/16/2021 11:20:00 [id number] [facility] [place] [place] [address] [place] [address] 10/06/2021 00:00:00 10/16/2021 16:44:50 [id number] [facility] [place] [address] [place] [address] 01/05/2022 00:00:00 01/05/2022 09:23:51 [id number] Nba Gaston MD [facility] [place] [address] [place] [address] 01/25/2022 00:00:00 01/25/2022 12:31:39 [id number] Maylin Coleman MD [facility] [place] [address] 01/31/2022 00:00:00 01/31/2022 08:57:21 [id number] Nba Gaston MD [facility] [place] [address] [place] [address] 03/09/2022 00:00:00 03/09/2022 11:35:42 [id number] [facility] [place] [address] [place] [address] 04/06/2022 00:00:00 04/06/2022 13:51:46 [id number] Maylin Coleman MD [facility] [address] [facility] [place] [address] [address] 08/30/2022 00:00:00 08/31/2022 08:52:00 [id number] Maylin Coleman MD [facility] [place] [facility] [place] [address] [address] 09/19/2022 00:00:00 09/19/2022 09:59:47 [id number] [facility] [place] [address] [place] [address] 10/05/2022 00:00:00 10/05/2022 13:44:52 [id number] Jacinto shay MD [facility] Internal Med [place] [address] [address] [facility] [place] [place] [address] 12/06/2022 00:00:00 12/06/2022 12:46:18 [id number] Jacinto shay MD [facility] Internal Med [place] [address] [facility] [place] [address] 04/09/2023 11:00:05 04/09/2023 11:49:08 Screening - NAD [id number] Z13.9 C-scope: Not doing at this time, no complaints Cologuard 01/08/2023 : Neg UTD on flu shotUTD on PCV #13, get #23Get tap/shingr ix vaccineGet COVID vaccine and its boosters RTC in 3 monthsDo labs, ER if worse, he and his did verbalize his understand ing of the above Gout 40779773 M10.9 On allopurino l 300mg daily 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 614977075 E11.9 On metformin 500mg 2 tabs bidNow on Farxiga 10mg daily Get labsKeep apt with Dr Doyle, see eye MDNot on INÉS-I, get labs may need to start in lisinopril Hyperlipidemia 98731302 E78.5 On simvastati n 40mg dailyGet labs Gastroesop hageal reflux disease without esophagitis 762992006 K21.9 On omeprazole 20mg dailyDoes well, take as needed Erectile dysfunction 860 808112 F52.21 On tadalafil, take PRN Anemia 111672758 D64.9 More iron in diet Adult heal th examination 292992867 Z00.00 Screening for disorder 226327155 Z13.9 Pain of ri ght shoulder joint 0677466881 0514707 M25.511 Get a referral to Dr Quintero [id number] Giorgio Doyle DPM [facility] Podiatry [place] [address] [place] [address] 04/09/2023 13:58:03 04/10/2023 10:15:38 Diabetes mellitus 19419293 E11.40 Continue per PCP recommenda tions Dystrophia unguium 15876 009 L60.3 Nails 1 through 10 were debrided with sharp mechanical debridemen t without incident. Nails were debrided and greater than 50% length and thickness where needed. Diabetic p eripheral neuropathy 234180805 E11.40 Patient educated on neuropathy , diabetes, diabetic diet, and daily foot exams. Patient is to check feet daily for new wounds, blisters, redness to prevent infection and ulceration s to the feet. Patient will return to clinic in 3 months for diabetic foot workup. [id number] Teddy Quintero MD [facility] Ortho [place] 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 9846144387 78359 M19.698 [id number] Jacinto shay MD [facility] Internal Med [place] [address] [address] [facility] [address] , [place] [address] 07/16/2023 11:26:31 07/16/2023 12:45:27 Screening - NAD 860440691 Z13.9 C-scope: Not doing at this time, no complaints Cologuard 01/08/2023 : Neg UTD on flu shotUTD on PCV #13, get #23Get tap/shingr ix vaccineGet COVID vaccine and its boosters RTC in 3 monthsDo labs, ER if worse, he and his did verbalize his understand ing of the above Gout 45525232 M10.9 On allopurino l 300mg daily 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 616026609 E11.9 On metformin 500mg 2 tabs bidOn Farxiga 10mg daily Get labsKeep apt with Dr Doyle, see eye Not on INÉS-I, get labs may need to start in lisinopril , not wanting this yet as he fears his BP will go low 07/16/2023 Hyperlipidemia 83200080 E78.5 On simvastati n 40mg dailyGet labs Gastroesop hageal reflux disease without esophagitis 593942820 K21.9 On omeprazole 20mg dailyDoes well, take as needed Erectile dysfunction 860 782034 F52.21 On tadalafil, take PRN Anemia 717737519 D64.9 More iron in diet Pain of ri ght shoulder joint 7993751582 3725903 M25.511 Neo Nicholasclarissa 04/17/2023 Bronchitis 90460171 J40 Still has a cough, seen in UCGet on MDPCall if not better [id number] Giorgio Doyle DPM [facility] Pod[facility] [place] [address] [place] [address] 07/16/2023 14:29:25 07/16/2023 15:07:46 Diabetic peripheral neuropathy 489819694 E11.40 Continue diabetic control per PCPCheck feet daily for wounds infectionC ontinue supportive shoe gearFollow -up in 4 months for diabetic foot care Dystrophia unguium 65398 009 L60.3 Nails 1 through 10 were debrided with sharp mechanical debridemen t without incident. Nails were debrided and greater than 50% length and thickness where needed. [id number] Jacinto shay MD [facility] Internal Med [place] [address] [address] [place] [address] 09/10/2023 09:29:50 09/10/2023 10:40:49 Gastroesophageal reflux disease without esophagitis 265104143 K21.9 On omeprazole 20mg daily, can do bid, states that he has tried this and it has helped, also get an EGD doneDoes well, take as needed See case 09/06/2023 [id number] Giorgio Doyle DPM [facility] Pod[facility] [place] [address] [place] [address] 11/19/2023 14:14:02 11/20/2023 12:08:36 Diabetes mellitus 47678562 E11.40 Continue per PCP recommenda tions Diabetic p eripheral neuropathy 835318939 E11.40 control diabetes to prevent worsening neuropathy Check feet daily for wounds infection- continue supportive shoe gearContin ue supportive shoe gear 6 months for diabetic foot care [id number] Jacinto shay MD [facility] Internal Med [place] [address] [place] [address] 12/10/2023 11:01:02 12/10/2023 12:40:54 Gastroesophageal reflux disease without esophagitis 249115076 K21.9 On omeprazole 20mg daily, can do bid, states that he has tried this and it has helped, also get an EGD doneDoes well, take as needed See case 09/06/2023 Dr Brewster 10/15/2023 Screening - NAD 07927265 3 Z13.9 C-scope: Not doing at this time, no complaints Cologuard 01/08/2023 : Neg UTD on flu shotUTD on PCV #13, get #23Get tap/shingr ix vaccineGet COVID vaccine and its boostersCa n do RSV vaccine RTC in 3 monthsDo labs, ER if worse, he and his did verbalize his understand ing of the above Gout 36322242 M10.9 On allopurino l 300mg daily 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 569514230 E11.9 On metformin 500mg 2 tabs bidOn Farxiga 10mg daily Get labsKeep apt with Dr Doyle, see eye MDNot on INÉS-I, get labs may need to start in lisinopril , not wanting this yet as he fears his BP will go low Hyperlipidemia 72204657 E78.5 On simvastati n 40mg dailyGet labs Erectile dysfunction 860 711889 F52.21 On tadalafil, take PRN Anemia 392518795 D64.9 More iron in diet Pain of ri ght shoulder joint 0970429005 1736731 M25.511 Neo Ribera 04/17/2023 Paroxysmal atrial fibrillation 530976001 I48.0 On ASAOn diltiazem ER 120mg dailyOn eliquis 5mg bidOn Farxiga 10mg 1/2 tabletOn ranolazine ER 500mg dailySees [facility] Dr Jaeger 10/31/2023 Unsteady when walking 22 875751 R26.89 Feels that his gait is getting worse, does use a cane, advised to use a walker and also get PT to eval and treat [id number] Fredrick Vera MD [facility] [place] [place] [address] [place] [address] 01/02/2024 11:12:32 01/02/2024 11:58:21 Pain of bilateral hip joints 8579504163 9122855 M25.551 M25.064 [id number] Fredrick Vera MD [facility] [place] [place] [address] [place] [address] 04/03/2024 10:51:06 04/03/2024 11:31:27 Osteoarthritis of bilateral hip joints 3348729704 87800 M16.0 Pain of ri ght hip joint 3013724384 67195 M25.109 [id number] Jacinto shay MD [facility] Internal Med [place] [address] [facility] , [place] [address] 04/09/2024 10:26:54 04/09/2024 11:19:27 Adult health examination 108264092 Z00.00 Screening for disorder 629240376 Z13.9 Screening - NAD 56129349 3 Z13.9 C-scope: Not doing at this time, no complaints Cologuard 01/08/2023 : Neg UTD on flu shotUTD on PCV #13, get #23Get tap/shingr ix vaccineGet COVID vaccine and its boostersCa n do RSV vaccine RTC in 3 monthsDo labs, ER if worse, he and his did verbalize his understand ing of the above Gastroesop hageal reflux disease without esophagitis 609344843 K21.9 On omeprazole 20mg daily, can do bid, states that he has tried this and it has helped, also get an EGD doneDoes well, take as needed See case 09/06/2023 Dr Brewster 10/15/2023 Dr Herrera 01/23/2024 Gout 81561366 M10.9 On allopurino l 300mg daily 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 634066678 E11.9 On metformin 500mg 2 tabs bidOn Farxiga 10mg daily Get labsKeep apt with Dr Doyle, see eye MDNot on INÉS-I, get labs may need to start in lisinopril , not wanting this yet as he fears his BP will go low Hyperlipidemia 83873344 E78.5 Not on simvastati n 40mg dailyOn zetia 10mg dailyGet labs Erectile dysfunction 860 953396 F52.21 On tadalafil, take PRN Anemia 216148823 D64.9 More iron in diet Pain of ri ght shoulder joint 4642556328 3154223 M25.511 Neo Mounika 04/17/2023 Paroxysmal atrial fibrillation 454987642 I48.0 S/p d/c from [facility] 02/04/2024 On ASAOn diltiazem ER 120mg dailyOn eliquis 5mg bidOn Farxiga 10mg 1/2 tabletOn ranolazine ER 500mg dailySees [facility] Dr Jaeger 10/31/2023 [facility] Dr Jaeger: 02/28/2024 Unsteady when walking 22 894915 R26.89 Feels that his gait is getting worse, does use a cane, advised to use a walker and also get PT to eval and treat Pain of bi lateral hip joints 4653556610 1861323 M25.551 M25.552 Hany Ling PA: 04/03/2024 Small boogie l obstruction 650769660 K56.609 S/p d/c, from [facility] 02/04/2024 , s/p surgery [id number] Giorgio Doyle DPM [facility] Podiatry [place] [address] [place] [address] 05/19/2024 10:54:37 05/20/2024 13:08:38 Diabetes mellitus 99174399 E11.40 Continue per PCP recommenda tions Dystrophia unguium 99192 009 L60.3 Nails 1 through 10 were debrided with sharp mechanical debridemen t without incident. Nails were debrided and greater than 50% length and thickness where needed. [id number] Jacinto shay MD [facility] [place] [address] [place] [address] 07/14/2024 10:48:15 07/14/2024 12:04:38 Gastroesophageal reflux disease without esophagitis 039967877 K21.9 On omeprazole 20mg daily, can do bid, states that he has tried this and it has helped, also get an EGD doneDoes well, take as needed See case 09/06/2023 Dr Brewster 10/15/2023 Dr Herrera 01/23/2024 Screening - NAD 70588181 3 Z13.9 C-scope: Not doing at this time, no complaints Cologuard 01/08/2023 : Neg UTD on flu shotUTD on PCV #13, get #23Get tap/shingr ix vaccineGet COVID vaccine and its boostersCa n do RSV vaccine RTC in 3 monthsDo labs, ER if worse, he and his did verbalize his understand ing of the above Gout 62210117 M10.9 On allopurino l 300mg daily 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 267244031 E11.9 On metformin 500mg 2 tabs bidOn Farxiga 10mg daily Get labsKeep apt with Dr Doyle, see eye MDNot on INÉS-I, get labs may need to start in lisinopril , not wanting this yet as he fears his BP will go low Hyperlipidemia 66008695 E78.5 Not on simvastati n 40mg dailyOn zetia 10mg dailyGet labs Erectile dysfunction 860 377769 F52.21 On tadalafil, take PRN Anemia 419766270 D64.9 More iron in diet Pain of ri ght shoulder joint 2118341401 2068010 M25.511 Neo Ribera 04/17/2023 Paroxysmal atrial fibrillation 774237295 I48.0 S/p d/c from [facility] 02/04/2024 On ASAOn diltiazem ER 120mg dailyOn eliquis 5mg bidOn Farxiga 10mg 1/2 tabletOn ranolazine ER 500mg daily [facility] Dr Jaeger: 02/28/2024 [facility] Dr Jaeger: 05/28/2024 Unsteady when walking 22 776780 R26.89 Feels that his gait is getting worse, does use a cane, advised to use a walker and also get PT to eval and treat Fall 06/11/2024 : [facility]- spine/R shoulder/B rain: negative Pain of bi lateral hip joints 3437626305 2778201 M25.551 M25.552 Hany Ling PA: 04/03/[address] Mccartney 07/14/2024 Small boogie l obstruction 271854768 K56.609 S/p d/c, from [facility] 02/04/2024 , s/p surgery, states 07/14/2024 is doing well today [id number] Jacinto shay MD [facility] [address] [place] [address] 10/22/2024 11:12:47 10/22/2024 12:10:00 Gastroesophageal reflux disease without esophagitis 409723516 K21.9 On omeprazole 20mg daily, can do bid, states that he has tried this and it has helped, also get an EGD doneDoes well, take as needed See case 09/06/2023 Dr Brewster 10/15/2023 Dr Herrera 01/23/2024 Screening - NAD 02547301 3 Z13.9 C-scope: Not doing at this time, no complaints Cologuard 01/08/2023 : Neg UTD on flu shotUTD on PCV #13, get #23Get tap/shingr ix vaccineGet COVID vaccine and its boostersCa n do RSV vaccine RTC in 3 monthsDo labs, ER if worse, he and his did verbalize his understand ing of the above Gout 80131829 M10.9 On allopurino l 300mg daily 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 429826568 E11.9 On metformin 500mg 2 tabs bidOn Farxiga 10mg daily Get labsKeep apt with Dr Doyle, see eye MDNot on INÉS-I, get labs may need to start in lisinopril , not wanting this yet as he fears his BP will go low Hyperlipidemia 39216164 E78.5 Not on simvastati n 40mg dailyOn zetia 10mg dailyGet labs Erectile dysfunction 860 276361 F52.21 On tadalafil, take PRN Anemia 834285932 D64.9 More iron in diet Pain of ri ght shoulder joint 3704511367 1242298 M25.511 Neo Nicholasclarissa 04/17/2023 Paroxysmal atrial fibrillation 849700769 I48.0 S/p d/c from [facility] 02/04/2024 On ASAOn diltiazem ER 120mg dailyOn eliquis 5mg bidOn Farxiga 10mg 1/2 tabletOn ranolazine ER 500mg daily HV Dr Jaeger: 02/28/[address] [facility] [address] Jaeger: 05/28/2024 Unsteady when walking 22 507033 R26.89 Feels that his gait is getting worse, does use a cane, advised to use a walker and also get PT to eval and treat Fall 06/11/2024 : [facility]- spine/R shoulder/B rain: negative Pain of bi lateral hip joints 8828280962 7940341 M25.551 M25.552 Hany Ling PA: 04/03/[address] Mccartney 07/14/2024 Small boogie l obstruction 431772425 K56.609 S/p d/c, from [facility] 02/04/2024 , s/p surgery, states 07/14/2024 is doing well today Hyperkalemia 63188073 E8 7.5 Repeat the K level [id number] Jacinto shay MD [facility] [address] [place] [address] 11/19/2024 17:22:08 11/19/2024 18:03:46 Gastroesophageal reflux disease without esophagitis 695092774 K21.9 On omeprazole 20mg daily, can do bid, states that he has tried this and it has helped, also get an EGD doneDoes well, take as needed See case 09/06/2023 Dr Brewster 10/15/2023 Dr Herrera 01/23/2024 Screening - NAD 83673260 3 Z13.9 C-scope: Not doing at this time, no complaints Cologuard 01/08/2023 : Neg UTD on flu shotUTD on PCV #13, get #23Get tap/shingr ix vaccineGet COVID vaccine and its boostersCa n do RSV vaccine RTC in 3 monthsDo labs, ER if worse, he and his did verbalize his understand ing of the above Gout [id number] M10.9 On allopurino l 300mg daily 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 561174438 E11.9 On metformin 500mg 2 tabs bidOn Farxiga 10mg daily Get labsKeep apt with Dr Doyle, see eye MDNot on INÉS-I, get labs may need to start in lisinopril , not wanting this yet as he fears his BP will go low Hyperlipidemia 45319328 E78.5 Not on simvastati n 40mg dailyOn zetia 10mg dailyGet labs Erectile dysfunction 860 491875 F52.21 On tadalafil, take PRN Anemia 410055831 D64.9 More iron in diet Pain of ri ght shoulder joint 7619398543 5616394 M25.511 Neo Ribera 04/17/2023 Paroxysmal atrial fibrillation 449025984 I48.0 S/p d/c from [facility] 02/04/2024 S/p d/c [facility] 11/12/2024 On ASAOn diltiazem ER 120mg dailyOn eliquis 5mg bidOn Farxiga 10mg 1/2 tabletOn ranolazine ER 500mg daily [facility] Dr Jaeger: 02/28/[address] [facility] [address] Jaeger: 05/28/2024 S/p cardiac cath 11/11/2024 , to take plavix, eliquis 5mg bid and ASA 81mg dailyNeeds to see cardiology referred 11/19/2024 and did d/w Dr Jaeger today Unsteady when walking 22 800368 R26.89 Feels that his gait is getting worse, does use a cane, advised to use a walker and also get PT to eval and treat Fall 06/11/2024 : [facility]- spine/R shoulder/B rain: negative Pain of bi lateral hip joints [id number] 9579339 M25.551 M25.552 Hany Ling PA: 04/03/[address] Mccartney 07/14/2024 Small boogie l obstruction 288949129 K56.609 S/p d/c, from [facility] 02/04/2024 , s/p surgery, states 07/14/2024 is doing well Hyperkalemia 75967330 E8 7.5 Repeat the K level Transition of care 49855 85298 105 Z75.8 Liver enzy mes level above reference range 065043357 R74.01 Noted in the labs from the hospitalRe peat the labs prior to next apt [id number] Jacinto shay MD [facility] [address] [place] [address] 01/21/2025 09:56:08 01/21/2025 11:27:12 Gastroesophageal reflux disease without esophagitis 774134193 K21.9 Not on omeprazole 20mg daily, can do bid, states that he has tried this and it has helpedOn pantoprazo le 40mg bid given by Tessy sucralfate given by Alba dumas, take as needed See case 09/06/2023 Dr Brewster 10/15/2023 Dr Herrera 01/23/2024 Dr Nava 01/13/2025 , started on pantoprazo le Screening - NAD 14936069 3 Z13.9 C-scope: Not doing at this time, no complaints Cologuard 01/08/2023 : Neg UTD on flu shotUTD on PCV #13, get #23Get tap/shingr ix vaccineGet COVID vaccine and its boostersCa n do RSV vaccine RTC in 3 monthsDo labs, ER if worse, he and his did verbalize his understand ing of the above Gout 97383450 M10.9 On allopurino l 300mg daily 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 346916361 E11.9 Not on metformin 500mg 2 tabs bid, was told to stop as per his cardiologi stOn Farxiga 10mg daily Get labsKeep apt with Dr Doyle, see eye MDNot on INÉS-I, get labs may need to start in lisinopril , not wanting this yet as he fears his BP will go low Hyperlipidemia 54230701 E78.5 Not on simvastati n 40mg dailyOn zetia 10mg dailyGet labs Erectile dysfunction 860 970263 F52.21 On tadalafil, take PRN Anemia 749605251 D64.9 More iron in diet Pain of ri ght shoulder joint 2981941250 7079806 M25.511 Neo Padillanadine 04/17/2023 Paroxysmal atrial fibrillation 953218309 I48.0 S/p d/c from [facility] 02/04/2024 S/p d/c [facility] 11/12/2024 On ASAOn diltiazem ER 120mg dailyOn eliquis 5mg bidOn Farxiga 10mg 1/2 tabletOn ranolazine ER 500mg daily [facility] Dr Jaeger: 02/28/[address] [facility] [address] Jaeger: 05/28/[address] Jaeger: S/p cardiac cath 11/11/2024 , to take plavix, eliquis 5mg bid and ASA 81mg daily Unsteady when walking 22 816444 R26.89 Feels that his gait is getting worse, does use a cane, advised to use a walker and also get PT to eval and treat Fall 06/11/2024 : [facility]- spine/R shoulder/B rain: negative Pain of bi lateral hip joints 9452100979 1635325 M25.551 M25.552 Hany Ling PA: 04/03/[address] Mccartney 07/14/2024 Small boogie l obstruction 496326384 K56.609 S/p d/c, from [facility] 02/04/2024 , s/p surgery, states 07/14/2024 is doing well Liver enzy mes level above reference range 563257876 R74.01 Get US liver, get hepatitis panel and GGT Skin lesion 45820404 L98 .9 Small pea shaped, non tender, mobile swelling at the posterior scalp, likely lipoma, it was decided to not to get it removed Health Concerns Section Related Observation LastModified by Organization Jes ramos LastModified Time None Recorded Concern Status LastModified by Organization Details LastModified Time None Recorded Advance Directives Directive Y: Payers Encounter Date Sequence Insurance Name Policy Number Policy Eugene Covered Member ID Eugene Member ID Guarantor Name 05/19/2024 1 [facility] (MEDICARE REPLACEMENT/A DVANTAGE - PPO) [id number] Gene Lewis [id number] Gene Weaverson 07/14/2024 1 [facility] (MEDICARE REPLACEMENT/A DVANTAGE - PPO) [id number] Gene Weaverson [id number] Gene Weaverson 10/22/2024 1 [facility] (MEDICARE REPLACEMENT/A DVANTAGE - PPO) [id number] Generavindra Weaverson [id number] Gene Weaverson 11/19/2024 1 [facility] (MEDICARE REPLACEMENT/A DVANTAGE - PPO) [id number] Gene Weaverson [id number] Gene Weaverson 01/21/2025 1 [facility] (MEDICARE REPLACEMENT/A DVANTAGE - PPO) [id number] Gene Weaverson [id number] Gene Lewis Notes Date Note Type Note Provider Name and Address Organization Details Recorded Time 05/19/2024 text/html . 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 Patient denies no new complaints Giorgio Doyle, GERTRUDE [address], [place], [address], [facility] [employer] 05/19/2024 11:41:09 07/14/2024 text/html OV 12/06/2022:He re to establish careNjst Hx:GoutDMIIMichaelle emiaOAReviewed social family and surgical historyHere with [...] in the ER Jacinto Velasquez MD [address], [place], [address], [facility] [employer] 07/14/2024 18:21:50 10/22/2024 text/html OV 12/06/2022:He re to establish careNjst Hx:GoutDMIIHLDEDAn emiaOAReviewed social family and surgical historyHere [...] burn, no other complaints Jacinto Velasquez MD [address], [place], [address], [place] [facility] [place] [facility] 10/22/2024 12:32:35 11/19/2024 text/html OV 12/06/2022:He re to establish careNjst Hx:GoutDMIIHLDEDAn emiaOAReviewed social family and surgical historyHere [...] like symptoms, but then was diagnosed with [place] s/p cath, 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 and needs to see cardiology Jacinto Velasquez MD [address], [place], [address], [place] [employer] 11/19/2024 18:08:30 01/21/2025 text/html OV 12/06/2022:He re to establish [facility] Hx:GoutDMIIHLCONGTrish emiaOAReviewed social family and surgical historyHere with [...] like symptoms, but then was diagnosed with [place] s/p cath, 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 and needs to see cardiology OV 01/21/2025: Here for his f/u apt, he feels well today, here with his Jacinto Velasquez MD [address] [place] [address], [address], [place], [address], [facility] 01/21/2025 11:26:49
--- OUTSIDE RECORDS SUMMARY | 2025-04-01 08:49 | XMS_ITS ---
Author Name [facility] Organization [facility] Address [address] [place] [address] Care Team Providers Care Outside Cutter Hand Name Role Phone ANNIE GRANDA Primary Care Provider Unavailabl e Insurance Providers: [...] PART B Jan 04, 2004 PART B [id number] [phone] ESAZULEMAVILMA OCHOA PATIENT MEDICARE (WNR) MEDICARE (M) PART A Aug 05, 2002 PART A [id number] VILMA LEWIS OCHOA PATIENT Selected Encounter This section includes the information on record at [place] for the Encounter. Date/Time Encounter Type Encounter [...] assistance with personal care NAYELI CORADO Ja [facility] Plan of Treatment: Future Appointments (+ 6 months) and Future Tests (+/- 45 days) The Plan of Treatment section includes future care activities for the patient from all [place] treatmentfacilities. This section includes future appointments and future orders which are active, pending or scheduled. Future Appointments This section includes appointments that were scheduled to occur 6 months from the date of the Encounter, up to a maximum of 20 appointments. The data comes from all [place] treatment facilities. Appointment Date/Time Appointment Type Appointme nt Facility Name Feb 13, 2025 02:00 PM AMBULATORY - MEDICINE [facility] Social History: Smoking Status (Most current) and Tobacco Use (All prior to encounter date) This section includes the most current, and the historical, smoking and tobacco- related health factors from the [place] facility where the Encounter took place. Current Smoking Status This section includes the most current smoking, or tobacco-related health factor, from the [place] facility where the Encounter took place. Date/Time Current Smoking Status Comment Joy ity Aug 13, 2024 04:00 PM VA-TOBACCO NEVER USED [facility] Tobacco Use History This section includes a history of the smoking, or tobacco-related health factors, that were collected on or before the date of the Encounter. The data comes from the [place] facility where the Encounter took place. Date/Time Smoking Status/Tobacco Use Comment F acility May 04, 2023 03:40 PM VA-TOBACCO NEVER USED [facility] March 20, 2022 04:29 PM VA-TOBACCO NEVER USED [facility] March 11, 2021 01:07 PM VA-TOBACCO NEVER USED [facility] Encounter Notes: All associated encounter notes This [...] supervision without which the ability of the to function in daily life would be seriously impaired. Assessment of the need for personal care services is just one piece of the overall application process. 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 Comments/additional information: Nebo confirms that he has permanent teeth. Nebo confirms independence with upper body washing, rinsing and drying. Reviewed CPRS records, did not find relevant documentation to support or refute reported information. BATHING (3) Shower/bathe self: Supervision or touching assistance Defined as: The ability to bathe self, including washing, rinsing, and drying self. Does not include transferring in/out of tub/shower. Comments/additional information: Nebo reports that he sits in front of sink/vanity and washes up every other day. reports that he sits on shower chair in front of sink to wash up. reports that CG provides hands on assistance with washing, rinsing and drying his feet and back each time, reports thathe requires assistance because he is off balance with bending down and is afraid he may fall. reports that he has a walk in shower but does not shower because shower head is not removable and since it is not removable he will be unable to properly rinse, reports that he cant stand for long periods and will be unable to buckle sewer machine shower. Reviewed CPRS records, did not find [...] sitting on settee at end of bed. confirms that as long as he is sitting he is able to dress/undress both his upper and lower body independently. confirms ability to don/doff shoes and socks [...] on the side of the bed. (7e) Chair/wvz-gt-meohu transfer: Person does not usually do this [...] and from lying to sitting position independently. Nebo confirms ability to move from sit to stand positions independently with use of walker for support. Nebo reports thathe is able to get on/off [...] to bend/stoop from a standing position to fruit or nut picker a small object, such as a [...] balance d/t pain in knee and hip. Nebo reports inability to stand for longer than 3 minutes. reports use of walker or cane. Nebo confirms ability to ambulate up to 10ft with use of walker independently. CG reports that when ammbulating throughout home requires supervision. Nebo lives in bi level home without basement. Nebo reports that he is able to go up/down steps to second level of home with supervision/touching assistance. reports that to get to second level of home there is 6 steps from main level then a landing then 6 more steps. Nebo reports use of cane and rail with supervision to go down steps and reports use of cane and rail with touching assistance (back support) to go up steps. reports supervision to go up/down a curb. Nebo report s that with further distances such [...] CG reports calling pharmacy to request pills. Nebo confirms ability to self check blood glucose levels, before that he started checking blood glucose today. CG reports that veterans was managing medicationsbefore hospitalization. reports that he is not thinking very [...] Comments/additional information: and Primary Family Caregiver Applicant Anel Lewis both actively participated in [facility] appt while sitting side by side at table. Nebo alert and oriented to person, place and [...] that he forgets doctors appts, forgets dates. Nebo reports having to write things down on calendar to keep up. CG reports that forgets to check off when a bill is paid. When presented with questions r/t potentially harmful situations, responded appropriately. RN asked what would do if he was alone at [...] also confirms ability to go places alone. Nebo reports that he does not drive. Nebo reports that CG manages finances and bills. Reports that CG schedules, manages and keeps track of appts. Reports that CG grocery shops, cooks, cleans, does laundry and housework. CG drives to appts and sit in on appts. Vet does not drive. reports recent hospitalization. Nebo reports that he was admitted to [facility] on 11/07/2024 for symtoms r/t GERD. reports that labs were drawn and findings showed that he was experiencing heart issues. Nebo reports that on 11/10/2024 he had cardiac [...] their health and safety? Yes Comments/additional information: Nebo confirms that he is aware of who providers are and confirms that he has contact information. Nebo confirms ability to place a call to providers to report concerns, issue sor schedule appt. /es/ NAYELI CORADO RN BSN REGISTERED NURSE Signed: 11/27/2024 14:35 Receipt Acknowledged By: 11/27/2024 16:40 /es/ BYRON Sultana, BUTTERMAKER HELPER [employer], Caregiver Support Program NAYELI CORADO [facility]
--- OUTSIDE RECORDS SUMMARY | 2025-04-01 08:49 | XMS_ITS | Clinical Summary ---
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 HACKER Gender Identity Not on file Sexual Orientation Not on file Plan of Treatment Health Maintenance Due Date Last Done Comments Depression Screening 1937 Fall Risk Assessment 1935 Dilated Eye Exam 1935 Foot Exam 1935 Hepatitis B Screening 1955 Well Visit 65+ 2002 Covid-19 Vaccine (2023-2 5 season) 2024 08/14/2023, 09/25/2022, 03/21/2022, Additional [...] Diagnosis Comments EGFR Routine 10/17/2024 8:30 AM GROWTH HACKER Diabetes mellitus without complication (HCC) HEMOGLOBIN A1C Routine 10/17/2024 8:30 AM GROWTH HACKER Diabetes mellitus without complication (HCC) LIPID PANEL Routine 10/17/2024 8:30 AM GROWTH HACKER Diabetes mellitus without complication (HCC) ALBUMIN CREATININE RATIO, URINE Routine 10/17/2024 8:30 AM GROWTH HACKER Diabetes mellitus without complication (HCC) from Last 3 Months or Most Recently Relevant to Health Maintenance Results * eGFR (10/17/2024 8:30 AM GROWTH HACKER) eGFR 65 >=60 mL/min/1. 73 m2 Comment: [...] last reviewed 2021. Blood 10/17/2024 8:30 AM GROWTH HACKER 10/17/2024 8:17 PM GROWTH HACKER Jossie James MD LAB BLOOD ORDERABLES Final Result Performing Organization Address [facility] Co de Phone Number [facility] [address] [facility] [place] [address] * Albumin Creatinine Ratio, Urine (10/17/2024 8:30 AM GROWTH HACKER) Albumin Ur <12.0 mg/L Comment: Interpretive Data No reference range established. Current interpretive data was last revised 2019. Creatinine Ur 107.9 mg/dL [facility] Comment: Interpretive Data No reference range established. Current interpretive data was last revised 2019. Albumin Creatinine Ratio, Ur <11 1 - 29 mg/g [facility] Urine (Urine, Clean Catch) 10/17/2024 8:30 AM GROWTH HACKER 10/17/2024 8:01 PM GROWTH HACKER Narrative [facility] - 10/17/2024 8:54 PM GROWTH HACKER FAX RESULTS [phone] JACINTO JAMES Jossie James MD LAB URINE ORDERABLES Final Result Performing Organization Address [facility] de Phone Number [facility] [address] [facility] [place] [address] * (ABNORMAL) Hemoglobin A1c (10/17/2024 8:30 AM GROWTH HACKER) Pathologist [facility] Hgb A1C 6.7(H) 4.0 - 5.6 % Estimated Average Glucose 146 mg/dL [facility] Comment: The ADA recommends reporting an estimated Average Glucose (eAG) with all Hemoglobin A1c results using the equation derived from a study of 507 normal and diabetic adults. Minority populations were underrepresented and children were not included. (Diabetes Care 31:2470-7178, 2008). The eAG is not equivalent to a fasting glucose. Blood Venous blood specimen / Unknown 10/17/2024 8:30 AM GROWTH HACKER 10/17/2024 8:01 PM GROWTH HACKER Narrative [facility] - 10/17/2024 8:35 PM GROWTH HACKER FAX RESULTS [phone] JACINTO JAMES us Jossie James MD LAB BLOOD ORDERABLES Final Result [facility] [address] [facility] [place] [address] * Lipid panel (10/17/2024 8:30 AM GROWTH HACKER) Cholesterol 155 30 - 199 mg/dL Comment: [...] blood specimen / Unknown 10/17/2024 8:30 AM GROWTH HACKER 10/17/2024 8:01 PM GROWTH HACKER Narrative [facility] - 10/17/2024 8:41 PM GROWTH HACKER FAX RESULTS [phone] JACINTO JAMES us Jossie James MD LAB BLOOD ORDERABLES Final Result [facility] [address] [facility] [place] [address] from Last 3 Months or Most Recently Relevant to Health Maintenance Insurance [facility] MEDICARE ADVANTAGE [employer] MEDICARE ADVANTAGE Care Teams Paper Counter Relationship Specialty Start Date End Date Phoebe Jaquez NP PCP - General Nurse Practitioner 11/24/19
--- OUTSIDE RECORDS SUMMARY | 2025-04-01 08:49 | XMS_ITS | CONTINUITY OF CARE DOCUMENT ---
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 Name Role Phone Tanmay Jaeger MD Unavailable JACINTO JAMES MD Unavailable [phone] JACINTO JAMES MD Unavailable PROBLEMS Condition Status Date Provider Notes Frequency of urination active Shaye Chou Anemia active Shaye Chou Cardiomyopathy, mild active Silvia Carmona ABNORMAL STRESS NUCLEAR SCAN 2014 - no CAD on cath 10/2015 active Tanmay Jaeger MD Diabetes mellitus active TORRI FARR MD HTN essential active TORRI FARR MD 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 - Tanmay Jaeger MD Aftercare long-term use, medications NEC completed - Tanmay Jaeger MD Abnormal EKG active Tanmay Jaeger MD Chest pain active Tanmay Jaeger MD Atrial fib paroxysmal active 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 Cardiology examination active Tanmay ferguson MD Hx of NSTEMI s/p GIOVANNI to OM1 active Tanmay Jaeger MD 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; GIOVANNI to OM1 active Tanmay Jaeger MD Loss of appetite active Tanmay Jaeger MD Epistaxis active Tanmay Jaeger MD ENCOUNTERS Date Type Provider Location Encounter Diag nosis - In-person encounter Office Visit Tanmay Jaeger MD [place] [facility] - In-person encounter Office Visit Tanmay Jaeger MD [place] [facility] Loss of appetiteEpistaxis - In-person encounter Office Visit Tanmay Jaeger MD [place] [facility] Cardiology examinationHx of NSTEMI s/p GIOVANNI to OM1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; GIOVANNI to OM1 - In-person encounter Office Visit Tyler Ricardo MD [place] [facility] - In-person encounter Office Visit Tanmay Jaeger MD [place] [facility] - In-person encounter Office Visit Tanmay Jaeger MD [facility] [place] [facility] - In-person encounter Office Visit Tanmay Jaeger MD [place] [facility] Atrial fib paroxysmal - In-person encounter Office Visit Tanmay Jaeger MD [place] [facility] - In-person encounter Office Visit Tanmay Jaeger MD [place] [facility] Chest pain - In-person encounter Office Visit Tanmay Jaeger MD [place] [facility] Knee joint replaced by other meansAftercare long-term use, medications NEC - In-person encounter Office Visit Tanmay Jaeger MD [facility] [place] [facility] ABNORMAL STRESS NUCLEAR SCAN 2014 - no CAD on cath 10/2015 - In-person encounter Office Visit Tanmay Jaeger MD [place] [facility] Abnormal EKG - In-person encounter Office Visit TORRI FARR MD [facility] [place] [facility] - In-person encounter Office Visit TORRI FARR MD [facility] [place] [facility] - In-person encounter Office Visit TORRI FARR MD [facility] [place] [facility] - In-person encounter Office Visit TORRI FARR MD [facility] [place] [facility] - In-person encounter Office Visit TORRI FARR MD [facility] - In-person encounter Office Visit TORRI FARR MD [place] [facility] - In-person encounter Office Visit TORRI FARR MD [place] [facility] - In-person encounter Office Visit TORRI FARR MD [place] [facility] - In-person encounter Office Visit TORRI FARR MD [place] [facility] - In-person encounter Office Visit TORRI FARR MD [place] [facility] - In-person encounter Office Visit TORRI FARR MD [place] [facility] - In-person encounter Office Visit TORRI FARR MD [place] [facility] - In-person encounter Office Visit TORRI FARR MD [place] [facility] - In-person encounter Office Visit TORRI FARR MD [place] [facility] - In-person encounter Office Visit TORRI FARR MD [place] [facility] - In-person encounter Office Visit TORRI FARR MD [place] [facility] - In-person encounter Office Visit TORRI FARR MD [place] [facility] - In-person encounter Office Visit TORRI FARR MD [place] [facility] - In-person encounter Office Visit TORRI FARR MD [place] [facility] - In-person encounter Office Visit TORRI FARR MD [place] [facility] - In-person encounter Office Visit TORRI FARR MD [place] [facility] - In-person encounter Office Visit TORRI FARR MD [place] [facility] - In-person encounter Office Visit TORRI FARR MD [place] [facility] - In-person encounter Office Visit TORRI FARR MD [place] [facility] - In-person encounter Office Visit TORRI FARR MD [place] [facility] - In-person encounter Office Visit TORRI FARR MD [place] [facility] - In-person encounter Office Visit TORRI FARR MD [place] [facility] - In-person encounter Office Visit TORRI FARR MD [place] [facility] - In-person encounter Office Visit TORRI FARR MD [place] [facility] - In-person encounter Office Visit TORRI FARR MD [place] [facility] - In-person encounter Office Visit TORRI FARR MD [place] [facility] - In-person encounter Office Visit TORRI FARR MD [place] [facility] - In-person encounter Office Visit TORRI FARR MD [place] [facility] - In-person encounter Office Visit TORRI FARR MD [place] [facility] - In-person encounter Office Visit TORRI FARR MD [place] [facility] - In-person encounter Office Visit TORRI FARR MD [facility] - In-person encounter Office Visit TORRI FARR MD [place] [facility] - In-person encounter Office Visit TORRI FARR MD [facility] [place] [facility] - In-person encounter Office Visit TORRI FARR MD [facility] - In-person encounter Office Visit Benjamin Taveras [facility] - In-person encounter Office Visit Benjamin Taveras [facility] - In-person encounter Office Visit Benjamin Taveras [facility] [place] [facility] - In-person encounter Office Visit TORRI FARR MD [place] [facility] - In-person encounter Office Visit TORRI FARR MD [place] [facility] - In-person encounter Office Visit Benjamin Taveras [place] [facility] - In-person encounter Office Visit TORRI FARR MD [place] [facility] - In-person encounter Office Visit Benjamin Taveras [facility] - In-person encounter Office Visit TORRI FARR MD [place] [facility] - In-person encounter Office Visit TORRI FARR MD [place] [facility] - In-person encounter Office Visit TORRI FARR MD [place] [facility] - In-person encounter Office Visit TORRI FARR MD [place] [facility] - In-person encounter Office Visit TORRI FARR MD [place] [facility] - In-person encounter Office Visit TORRI FARR MD [place] [facility] Diabetes mellitusHTN essential - In-person encounter Office Visit Benjamin Taveras [place] [facility] - In-person encounter Office Visit Benjamin Taveras [place] [facility] - In-person encounter Office Visit Benjamin Taveras [place] [facility] - In-person encounter Office Visit [facility] [place] [facility] - In-person encounter Office Visit [facility] [place] [facility] - In-person encounter Office Visit [facility] [place] [facility] - In-person encounter Office Visit Stevearpan Taveras [place] [facility] - In-person encounter Office Visit Stevearpan Taveras [place] [facility] - In-person encounter Office Visit Benjamin Taveras [place] [facility] - In-person encounter Office Visit [facility] [place] [facility] - In-person encounter Office Visit Benjamin Taveras [place] [facility] - In-person encounter Office Visit Stevearpan Taveras [place] [facility] - In-person encounter Office Visit Benjamin Taveras [place] [facility] - In-person encounter Office Visit Benjamin Taveras [place] [facility] - In-person encounter Office Visit Benjamin Taveras [place] [facility] - In-person encounter Office Visit [facility] [place] [facility] - In-person encounter Office Visit Stevearpan Taveras [place] [facility] - In-person encounter Office Visit Stevearpan Taveras [facility] - In-person encounter Office Visit Stevearpan Taveras [facility] - In-person encounter Office Visit Stevearpan Taveras [facility] - In-person encounter Office Visit Stevearpan Taveras [facility] - In-person encounter Office Visit Stevearpan Taveras [facility] - In-person encounter Office Visit Stevearpan Taveras [facility] VITAL SIGNS Date Observation Value Provider Body Mass Index (Ratio) 22.96 kg/m2 Ilene Jaeger MD blood pressure, cuff size regular Ol ivia Garcia blood pressure, diastolic 58 mm[Hg] Ol ivia Garcia blood pressure, systolic 112 mm[Hg] Melvin via Garcia oxygen saturation, oximetry 82 % Madelyn Garcia respiratory rate E&M 12 /min Madelyn Garcia pulse rate 84 /min Madelyn Garcia weight E&M 160 [lb_av] Madelyn Garcia height E&M 70 [in_i] Madelyn Garcia Body Mass Index (Ratio) 22.09 kg/m2 Ilene Jaeger MD blood pressure, diastolic 68 mm[Hg] Trish cantu [facility] blood pressure, systolic 127 mm[Hg] Latricia garay [facility] oxygen saturation, oximetry 99 % [facility] 76 /min [facility] rate E&M 12 /min [facility] weight [facility]&M 154 [lb_av] [facility] height E&M 70 [in_i] Tona Main blood pressure, cuff size regular An pepe Main Body Mass Index (Ratio) 21.95 kg/m2 Ilene Jaeger MD blood pressure, diastolic 62 mm[Hg] Trish cantu [place] blood pressure, systolic 119 mm[Hg] Latricia [facility], oximetry 95 % [facility] pulse rate 67 /min [facility] respiratory rate E&M 12 /min [facility] weight E&M 153 [lb_av] [facility] height E&M 70 [in_i] Tona Main blood pressure, cuff size regular Trish cantu Main Body Mass Index (Ratio) 22.52 kg/m2 Reina Ricardo MD blood pressure, cuff size regular Ke rri Gruenenfeldcarmel blood pressure, diastolic 70 mm[Hg] Ke rri Gruenenfelder blood pressure, systolic 132 mm[Hg] Ker ri Linwooduenegibsonrutland regional medical centercarmel oxygen saturation, oximetry 98 % Roxane Madelinnegibsonhca [facility] pulse rate 96 /min Roxane Josenfe [facility] weight E&M 157 [lb_av] Roxane Gruenenfe height E&M 70 [in_i] Roxane Gruenenfe Body Mass Index (Ratio) 22.81 kg/m2 Ilene Jaeger MD blood pressure, diastolic -1 mm[Hg] Rafaela nkLog blood pressure, systolic 121 mm[Hg] Lyric kLog blood pressure, diastolic 63 mm[Hg] Abhijeet rret blood pressure, systolic 121 mm[Hg] [facility] ret pulse rate 79 /min Gibson weight E&M 159 [lb_av] Gibson y blood pressure, cuff size regular Abhijeet rret respiratory rate E&M 14 /min Gibson oxygen saturation, oximetry 97 % Gibson height E&M 70 [in_i] Gibson y Body Mass Index (Ratio) 22.24 kg/m2 Ilene Jaeger MD weight E&M 155 [lb_av] Milagros Verduzco blood pressure, diastolic 66 mm[Hg] Trish Verduzco blood pressure, systolic 132 mm[Hg] Any a Dax pulse rate 90 /min Milagros Dax oxygen saturation, oximetry 97 % Milagros Dax blood pressure, cuff size large An ya Dax height E&M 70 [in_i] Milagros Dax Body Mass Index (Ratio) 23.96 kg/m2 Fredi da Ventimiglia BUILDING 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 blood pressure, diastolic 71 mm[Hg] Li nkLogic blood pressure, systolic 130 mm[Hg] Lyric og blood pressure, cuff size regular [facility] blood pressure, diastolic 71 mm[Hg] [facility] blood pressure, systolic 130 mm[Hg] [facility], oximetry 97 % [facility] respiratory rate E&M 16 /min Ebony Jaime [facility] pulse rate 95 /min [facility] weight E&M 167 [lb_av] [facility] height E&M 70 [in_i] [facility] Body Mass Index (Ratio) 23.82 kg/m2 Ilene Jaeger MD Body Mass Index (Ratio) 24.53 kg/m2 Ilene Jaeger MD blood pressure, diastolic 62 mm[Hg] Li nkLogic blood pressure, systolic 131 mm[Hg] Lyric kLog blood pressure, cuff size regular Abhijeet rret blood pressure, diastolic 62 mm[Hg] Ja rret blood pressure, systolic 131 mm[Hg] Jar ret oxygen saturation, oximetry 97 % Gibson pulse rate 82 /min Gibson y respiratory rate E&M 12 /min Gibson weight E&M 166 [lb_av] Gibson y height E&M 70 [in_i] Gibson y blood pressure, diastolic 66 mm[Hg] Li nkLogic blood pressure, systolic 126 mm[Hg] Lyric ogic blood pressure, cuff size regular Ja rret blood pressure, diastolic 66 mm[Hg] Ja rret blood pressure, systolic 126 mm[Hg] Jar ret pulse rate 75 /min Gibson oxygen saturation, oximetry 97 % Gibson respiratory rate E&M 12 /min Gibson weight E&M 171 [lb_av] Gibson height E&M 70 [in_i] Gibson y Body Mass Index (Ratio) 23.96 kg/m2 Ilene Jaeger MD blood pressure, diastolic 67 mm[Hg] Li Logic blood pressure, systolic 128 mm[Hg] Lyric ic blood pressure, cuff size regular Ja rret blood pressure, diastolic 67 mm[Hg] Ja rret blood pressure, systolic 128 mm[Hg] Jar ret pulse rate 106 /min Gibson respiratory rate E&M 12 /min Gibson oxygen saturation, oximetry 99 % Gibson weight E&M 167 [lb_av] Gibson y height E&M 70 [in_i] Gibson y Body Mass Index (Ratio) 25.11 kg/m2 Guillermina Walkere blood pressure, cuff size regular Ke rri Linwooduenegibsoneldcarmel blood pressure, diastolic 90 mm[Hg] Ke rri Gruenenfhca [facility] blood pressure, systolic 160 mm[Hg] Stephon Munozhca [facility] oxygen saturation, oximetry 97 % Roxane Munozhca [facility] respiratory rate E&M 14 /min Roxane roahca [facility] pulse rate 117 /min Roxane Kincaid [facility] weight E&M 175 [lb_av] Roxane Kincaid [facility] height E&M 70 [in_i] Roxane Kincaid [facility] blood pressure, diastolic 83 mm[Hg] St gu [place] blood pressure, systolic 154 mm[Hg] Bryan yo [place] oxygen saturation, oximetry 100 % Judy [place] pulse rate 61 /min [facility] rate E&M 16 /min Catalino perdomo [place] Body Mass Index (Ratio) 27.26 kg/m2 Roscoe dial [place] height in centimeters E&M 177.[address] [place] height E&M 70 [in_i] Judy Delgadond n weight in kilograms E&M 86.18 kg [facility] [place] weight E&M 190 [lb_av] [facility] blood pressure, cuff size large riccardo [place] ALLERGIES Allergy Name Onset Date Reaction Criticality Status LISINOPRIL Low Criticality active RESULTS Date Observation Value Provider Reference Range Interpretation Location uric acid, serum 4.4 mg/dL LinkLogic 3.7-8.6 hemoglobin A1C, blood, as % of total hemoglobin 7.2 % [facility] 4.8-5.6 High lipoprotein, beta, serum, point, quantitative, calculated 52 mg/dL [facility] 0-99 very low density lipoproteins 15 mg/dL [facility] 5-40 HDL cholesterol, serum 58 mg/dL [facility] >39 triglyceride, serum, random 73 mg/dL [facility] 0-149 cholesterol, serum 125 mg/dL [facility] [phone]/03/ 23 basophil count, absolute 0.1 x10E3/uL [facility] 0.0-0.2 Eosinophil Absolute Count 0.2 X10E3/UL [facility] 0.0-0.4 monocyte count, blood, automated 0.5 X10E3/UL [facility] 0.1-0.9 lymphocyte count, blood, automated 1.6 X10E3/UL [facility] 0.7-3.1 Absolute Neutrophils 3.5 X10E3/UL [facility] 1.4-7.0 basophils as percent of blood leukocytes 1 % LinkLogic Not Estab. eosinophils as percent of blood leukocytes 4 % [facility]Logic Not Estab. monocytes as percent of blood leukocytes 9 % [facility]Logic Not Estab. lymphocytes as percent of blood leukocytes 27 % [facility] Not Estab. neutrophils as percent of blood leukocytes 59 % [facility] Not Estab. platelet count 176 X10E3/UL [facility] [phone]/03/ 23 red blood cell distribution width 14.4 % [facility] 12.3-15.4 mean corpuscular hemoglobin concentration, RBC 32.1 G/DL [facility] 31.5-35.7 mean corpuscular hemoglobin, RBC 26.2 pg [facility] 26.6-33.0 Low mean corpuscular volume, RBC 82 fL [facility] 79-97 hematocrit, blood 39.9 % [facility] 37.5-51.0 hemoglobin, blood 12.8 g/dL [facility] 13.0-17.7 Low erythrocyte (RBC) count 4.88 X10E6/UL [facility] 4.14-5.80 leukocyte count, blood 5.9 X10E3/UL [facility] 3.4-10.8 alanine aminotransferase (SGPT), serum 26 1/L [facility] 0-44 aspartate aminotransferase (SGOT), serum 21 1/L [facility] 0-40 alkaline phosphatase, serum 48 1/L [facility] 39-117 bilirubin, serum, total 0.4 mg/dL [facility] 0.0-1.2 albumin/globulin ratio, serum 1.8 [facility] 1.2-2.2 globulin, serum 2.4 [facility] 1.5-4.5 albumin, serum 4.4 g/dL [facility] 3.5-4.7 protein, total, serum 6.8 g/dL [facility] 6.0-8.5 calcium, serum 10.3 mg/dL [facility] 8.6-10.2 High carbon dioxide, venous blood 27 mmol/L [facility] 18-29 chloride, serum 104 mmol/L [facility] 96-106 potassium, serum 4.8 mmol/L [facility] 3.5-5.2 sodium, serum 144 mmol/L [facility] [phone]/03/ 23 urea nitrogen/creatinine ratio, serum 15 [facility] 10-24 eGFR if 99 mL/min/{1 .73_m2} [facility]ic >59 eGFR if not 85 mL/min/{1 .73_m2} [facility]ic >59 creatinine, serum 0.78 mg/dL [facility] 0.76-1.27 urea nitrogen, blood 12 mg/dL [facility] 8-27 blood glucose, random 125 mg/dL [facility] 65-99 High hemoglobin A1C, blood, as % of total hemoglobin 7.2 % [facility] 4.0 - 5.6 High creatinine, serum 0.8 mg/dL [facility] 0.7 - 1.2 thyroid stimulating hormone, serum 3.850 ??IU/ML [facility] 0.270 - 4.200 very low density lipoproteins 11.0 mg/dL [facility] 5.0 - 40.0 LDL/HDL (low-density lipoprotein/high-den sity lipoprotein) ratio 0.9 RATIO [facility] - lipoprotein, beta, serum, point, quantitative, calculated 74.0 (?) [facility] 0.0 - 100.0 HDL cholesterol, serum 82.0 mg/dL [facility] 35.0 - 55.0 High cholesterol, serum 167.0 mg/dL [facility] 0.0 - 200.0 triglyceride, serum, fasting 55.0 mg/dL [facility] 0.0 - 150.0 anion gap, serum 11.6 [facility] - albumin/globulin ratio, serum 2.0 g/dL [facility] 1.1 - 2.5 globulin, serum 2.4 [facility] 2.3 - 3.8 urea nitrogen/creatinine ratio, serum 17.5 [facility] - Estimated Glomerular Filtration Rate (calc) 99.1 (?) [facility] 59.0 - chloride, serum 103.4 mmol/L [facility] 98.0 - 107.0 potassium, serum 4.5 mmol/L [facility] 3.5 - 5.1 sodium, serum 143.0 mmol/L [facility] 136.0 - 145.0 creatinine, serum 0.8 mg/dL [facility] 0.7 - 1.2 carbon dioxide, venous blood 28.0 mmol/L [facility] 23.0 - 31.0 albumin, serum 4.7 g/dL [facility] 3.5 - 5.2 calcium, serum 9.9 mg/dL [facility] 8.6 - 10.2 aspartate aminotransferase (SGOT), serum 21.0 1/L [facility] 0.0 - 40.0 alkaline phosphatase, serum 57.0 1/L [facility] 40.0 - 130.0 alanine aminotransferase (SGPT), serum 29.0 1/L [facility] 0.[facility] - 41.0 protein, total, serum 7.1 g/dL [facility] 6.6 - 8.7 bilirubin, serum, total 0.4 mg/dL LinkLog 0.0 - 1.2 urea nitrogen, blood 14.0 mg/[facility] 8.0 - 23.0 blood glucose, random 138.0 mg/dL [facility] 74.0 - 99.0 High red blood cell distribution width, size density 42.6 fL [facility] - immature granulocytes, percentage of total cells, blood 0.0 % [facility] - nucleated red blood cells as percent of blood leukocytes 0.0 % [facility] - red blood cell (erythrocyte) count, per high power field 0.0 10*3/UL [facility] - eosinophils as percent of blood leukocytes 3.6 % [facility] - neutrophils as percent of blood leukocytes 58.1 % [facility] - Absolute Neutrophils 3.2 CELLS/UL LinkLogic 1.5 - 7.8 basophils as percent of blood leukocytes 1.3 % [facility] - Absolute Basophils 0.1 CELLS/UL [facility] 0.0 - 0.2 monocytes as percent of blood leukocytes 8.8 % [facility] - Absolute Monocytes 0.5 CELLS/UL [facility] 0.2 - 1.0 lymphocytes as percent of blood leukocytes 28.2 % [facility] - Absolute Lymphocytes 1.6 CELLS/UL [facility] 0.9 - 3.9 mean platelet volume 12.4 (?) [facility] - platelet count 172.0 THOUSAND/ UL [facility] 100.0 - 400.0 mean corpuscular hemoglobin concentration, RBC 30.4 G/DL [facility] 31.0 - 38.0 Low mean corpuscular hemoglobin, RBC 26.5 pg [facility] 25.0 - 35.0 mean corpuscular volume, RBC 87.3 fL [facility] 75.0 - 100.0 hematocrit, blood 46.1 % [facility] 35.0 - 55.0 hemoglobin, blood 14.0 g/dL [facility] 11.5 - 16.5 erythrocyte count, whole blood 5.3 MILLION/U L [facility] 3.5 - 5.5 hemoglobin A1C, blood, as % of total hemoglobin 7.5 % [facility] 4.0 - 5.6 High urea nitrogen/creatinine ratio, serum 17.5 [facility] - Estimated Glomerular Filtration Rate (calc) 99.1 (?) [facility] 59.0 - hemoglobin A1C, blood, as % of total hemoglobin 6.7 % [facility] 4.0 - 6.0 High red blood cell distribution width, size density 43.2 fL [facility] - immature granulocytes, percentage of total cells, blood 0.2 % [facility] - nucleated red blood cells as percent of blood leukocytes 0.0 % [facility] - red blood cell (erythrocyte) count, per high power field 0.0 10*3/UL [facility] - eosinophils as percent of blood leukocytes 6.6 % [facility] - neutrophils as percent of blood leukocytes 53.7 % [facility] - Absolute Neutrophils 2.7 CELLS/UL [facility] 1.5 - 7.8 basophils as percent of blood leukocytes 1.0 % [facility] - Absolute Basophils 0.1 CELLS/UL [facility] 0.0 - 0.2 monocytes as percent of blood leukocytes 10.4 % [facility] - Absolute Monocytes 0.5 CELLS/UL [facility] 0.2 - 1.0 lymphocytes as percent of blood leukocytes 28.1 % [facility] - Absolute Lymphocytes 1.4 CELLS/UL [facility] 0.9 - 3.9 mean platelet volume 11.6 (?) [facility] - platelet count 152.0 THOUSAND/ UL [facility] 100.0 - 400.0 mean corpuscular hemoglobin concentration, RBC 29.6 G/DL [facility] 31.0 - 38.0 Low mean corpuscular hemoglobin, RBC 25.9 pg [facility] 25.0 - 35.0 mean corpuscular volume, RBC 87.4 fL [facility] 75.0 - 100.0 hematocrit, blood 45.6 % [facility] 35.0 - 55.0 hemoglobin, blood 13.5 g/dL [facility] 11.5 - 16.5 erythrocyte count, whole blood 5.2 MILLION/U L [facility] 3.5 - 5.5 free thyroxine index 6.9 ??g/dL [facility] 4.4 - 11.4 triiodothyronine uptake 1.1 TBI [facility] 0.8 - 1.3 thyroxine, serum, total 7.6 ??G/DL [facility] 4.5 - 11.7 thyroid stimulating hormone, serum 3.550 ?IU/ML [facility] 0.270 - 4.200 very low density lipoproteins 9.8 mg/dL [facility] 5.0 - 40.0 LDL/HDL (low-density lipoprotein/high-den sity lipoprotein) ratio 0.8 RATIO [facility] - HDL cholesterol, serum 71.0 mg/dL [facility] 35.0 - 55.0 High sum total cholesterol 138.0 mg/dL [facility] 0.0 - 200.0 Triglycerides-direct 49.0 mg/dL [facility] 0.0 - 150.0 anion gap, serum 15.3 [facility] - albumin/globulin ratio, serum 2.7 g/dL [facility] 1.1 - 2.5 High globulin, serum 2.9 [facility] 2.3 - 3.8 urea nitrogen/creatinine ratio, serum 15.7 [facility] - Estimated Glomerular Filtration Rate (calc) 116.2 (?) [facility] 59.0 - chloride, serum 105.7 mmol/L [facility] 98.0 - 107.0 potassium, serum 4.6 mmol/L [facility] 3.5 - 5.1 sodium, serum 148.0 mmol/L [facility] 136.0 - 145.0 High creatine, serum 0.7 mg/dL [facility] 0.7 - 1.2 carbon dioxide, venous blood 27.0 mmol/L [facility] 23.0 - 31.0 albumin, serum 4.4 g/dL [facility] 3.5 - 5.2 calcium, serum 9.8 mg/dL [facility] 8.6 - 10.2 aspartate aminotransferase (SGOT), serum 24.0 1/L [facility] 0.0 - 40.0 alkaline phosphatase, serum 55.0 1/L [facility] 40.0 - 130.0 alanine aminotransferase (SGPT), serum 38.0 1/L [facility] 0.0 - 41.0 protein, total, serum 7.3 g/dL [facility] 6.6 - 8.7 urea nitrogen, blood 11.0 mg/dL [facility] 8.0 - 23.0 Glucose Urine 145.0 mg/dL [facility] 74.0 - 99.0 High bilirubin, serum, total 0.3 mg/dL [facility] 0.0 - 1.2 thyroid stimulating hormone, serum 4.62 u[IU]/mL [facility] 0.270-4.20 High thyroxine, serum, free 1.28 ng/dL [facility] 0.93-1.7 Normal triiodothyronine (T3), serum 98 ng/dL [facility] Units converted. See lab report for original value. Normal thyroxine, serum, total 8.82 ug/dL [facility] 4.5-11.7 Normal hemoglobin A1C, blood, as % of total hemoglobin 7.2 % [facility] Normal basophils, absolute, manual 0.05 K/UL [facility] 0.0-0.1 Normal basophils as percent of blood leukocytes 0.8 % [facility] 0.3-0.9 Normal eosinophils, absolute, manual 0.43 K/UL [facility] 0.1-0.5 Normal eosinophils as percent of blood leukocytes 6.7 % [facility] 1.1-7.6 Normal monocyte count, blood 0.47 10*3/mm3 [facility] 0.2-0.7 Normal monocytes as percent of blood leukocytes 7.4 % [facility] 4.2-11.2 Normal lymphocytes as percent of blood leukocytes 2.04 K/UL [facility] 0.6-3.4 Normal lymphocytes, absolute 31.9 % [facility] 19.8-46.2 Normal neutrophil count, absolute 3.40 K/uL [facility] 1.9-5.9 Normal neutrophils as percent of blood leukocytes 53.2 % [facility] 42.7-72.4 Normal mean platelet volume 9.3 % [facility] 7.4-9.9 Normal red blood cell distribution width 11.3 % [facility] 10.9-14.6 Normal platelet count 191 10*3/mm3 [facility] 165-429 Normal mean corpuscular hemoglobin concentration, RBC 33.0 % [facility] 32.5-34.5 Normal mean corpuscular hemoglobin, RBC 26.8 pg [facility] 21.5-33.3 Normal mean corpuscular volume, RBC 81 fL [facility] 76-98 Normal hematocrit, blood 43.2 % [facility] 34.4-47.3 Normal hemoglobin, blood 14.2 g/dL [facility] 12.5-17.2 Normal erythrocyte (RBC) count 5.32 M/UL [facility] 3.8-5.5 Normal leukocyte count, blood 6.4 10*3/mm3 [facility] 3.7-8.9 Normal LDL/HDL (low-density lipoprotein/high-den sity lipoprotein) ratio 1.0 RATIO [facility] 0.2-4.3 Normal VLDL cholesterol 20 mg/dL [facility] 8-41 Normal lipoprotein, beta, serum, point, quantitative, calculated 62 mg/dL [facility] 0-130 Normal cholesterol/HDL ratio, serum, percent 2.3 ratio [facility] 1.5-5.6 Normal HDL cholesterol, serum 63 mg/dL [facility] 55 Normal triglyceride, serum, fasting 102 mg/dL [facility] Normal cholesterol, serum 145 mg/dL [facility] 0-199 Normal bilirubin, serum, total 0.5 mg/dL [facility] 0-1.2 Normal alanine aminotransferase (SGPT), serum 15 1/L [facility] 0-41 Normal aspartate aminotransferase (SGOT), serum 14 1/L [facility] 0-40 Normal alkaline phosphatase, serum 66 1/L [facility] 40-129 Normal albumin/globulin ratio, serum 1.7 ratio [facility] 1.0-2.6 Normal globulin, serum 2.7 [facility] 1.6-4.0 Normal albumin, serum 4.6 g/dL [facility] 3.97-4.94 Normal protein, total, serum 7.3 g/dL [facility] 6.6-8.7 Normal calcium, serum 9.7 mg/dL [facility] 8.6-10.0 Normal blood glucose, random 127 mg/dL [facility] 74-109 High eGFR if 106 mL/min/{1 .73_m2} [facility] >60 Normal eGFR if not 87 mL/min/{1 .73_m2} [facility] >60 Normal urea nitrogen/creatinine ratio, serum 12.2 ratio [facility] 8.0-25.0 Normal creatinine, serum 0.9 mg/dL [facility] 0.70-1.20 Normal urea nitrogen, blood 11 mg/dL [facility] 6-20 Normal carbon dioxide, venous blood 29 mmol/L [facility] 22-29 Normal chloride, serum 99 MEQ/L [facility] 98-107 Normal potassium, serum 4.3 MEQ/L [facility] 3.5-5.1 Normal sodium, serum 140 MEQ/L [facility] 136-145 Normal B-type natriuretic peptide 27.2 pg/mL [facility] 0.0-100.0 lipoprotein, beta, serum, point, quantitative, calculated 51 mg/dL [facility] 0-99 very low density lipoproteins 14 mg/dL [facility] 5-40 HDL cholesterol, serum 64 mg/dL [facility] >39 triglyceride, serum, random 71 mg/dL [facility] 0-149 cholesterol, serum 129 mg/dL [facility] [phone]/05/ 24 alanine aminotransferase (SGPT), serum 31 1/L [facility] 0-55 aspartate aminotransferase (SGOT), serum 38 1/L [facility] 0-40 alkaline phosphatase, serum 50 1/L [facility] 25-160 bilirubin, serum, total 0.7 mg/dL [facility] 0.0-1.2 albumin/globulin ratio, serum 1.6 [facility] 1.1-2.5 globulin, serum 2.6 [facility] 1.5-4.5 albumin, serum 4.1 g/dL [facility] 3.5-4.8 protein, total, serum 6.7 g/dL [facility] 6.0-8.5 calcium, serum 9.9 mg/dL [facility] 8.6-10.2 carbon dioxide, venous blood 25 mmol/L [facility] 20-32 chloride, serum 104 mmol/L [facility] 97-108 potassium, serum 4.4 mmol/L [facility] 3.5-5.2 sodium, serum 142 mmol/L [facility] [phone]/05/ 24 urea nitrogen/creatinine ratio, serum 10 [facility] 10-22 eGFR if not 85 mL/min/{1 .73_m2} [facility] >59 creatinine, serum 0.86 mg/dL [facility] 0.76-1.27 urea nitrogen, blood 9 mg/dL [facility] 8-27 blood glucose, random 108 mg/dL [facility] 65-99 High basophil count, absolute 0.0 x10E3/uL [facility] 0.0-0.2 Eosinophil Absolute Count 0.4 X10E3/UL [facility] 0.0-0.4 monocyte count, blood, automated 0.4 X10E3/UL [facility] 0.1-1.0 lymphocyte count, blood, automated 1.9 X10E3/UL [facility] 0.7-4.5 Absolute Neutrophils 3.3 X10E3/UL [facility] 1.8-7.8 basophils as percent of blood leukocytes 1 % [facility] 0-3 eosinophils as percent of blood leukocytes 7 % [facility] 0-7 monocytes as percent of blood leukocytes 7 % [facility] 4-13 lymphocytes as percent of blood leukocytes 32 % [facility] 14-46 neutrophils as percent of blood leukocytes 53 % [facility] 40-74 platelet count 162 X10E3/UL [facility] [phone]/05/ 24 red blood cell distribution width 13.9 % [facility] 11.7-15.0 mean corpuscular hemoglobin concentration, RBC 31.5 G/DL [facility] 32.0-36.0 Low mean corpuscular hemoglobin, RBC 26.5 pg [facility] 27.0-34.0 Low mean corpuscular volume, RBC 84 fL [facility] 80-98 hematocrit, blood 42.8 % [facility] 36.0-50.0 hemoglobin, blood 13.5 g/dL [facility] 12.5-17.0 erythrocyte (RBC) count 5.09 X10E6/UL [facility] 4.10-5.60 leukocyte count, blood 6.0 X10E3/UL [facility] 4.0-10.5 lipoprotein, beta, serum, point, quantitative, calculated 62 mg/dL [facility] (0-99) very low density lipoproteins 11 mg/dL [facility] (5-40) HDL cholesterol, serum 69 mg/dL [facility] (>39) triglyceride, serum, random 54 mg/dL [facility] (0-149) cholesterol, serum 142 mg/dL [facility] (100-199) alanine aminotransferase (SGPT), serum 26 1/L [facility] (0-55) aspartate aminotransferase (SGOT), serum 16 1/L [facility] (0-40) alkaline phosphatase, serum 58 1/L [facility] (25-160) bilirubin, serum, total 0.5 mg/dL [facility] (0.0-1.2) albumin/globulin ratio, serum 1.6 [facility] (1.1-2.5) globulin, serum 2.7 [facility] (1.5-4.5) albumin, serum 4.3 g/dL [facility] (3.5-4.8) protein, total, serum 7.0 g/dL [facility] (6.0-8.5) calcium, serum 9.8 mg/dL [facility] (8.6-10.2) carbon dioxide, venous blood 25 mmol/L [facility] (20-32) chloride, serum 104 mmol/L [facility] (97-108) potassium, serum 4.1 mmol/L [facility] (3.5-5.2) sodium, serum 142 mmol/L [facility] (135-145) urea nitrogen/creatinine ratio, serum 11 [facility] (10-22) eGFR if 94 mL/min/{1 .73_m2} [facility] ( >59) eGFR if not 81 mL/min/{1 .73_m2} [facility] ( >59) creatinine, serum 0.93 mg/dL [facility] (0.76-1.27) urea nitrogen, blood 10 mg/dL [facility] (8-27) blood glucose, random 131 mg/dL [facility] (65-99) High thyroxine, serum, free 1.09 ng/dL [facility] (0.82-1.77) thyroid stimulating hormone, serum 4.400 u[IU]/mL [facility] (0.450-4.500 ) basophil count, absolute 0.0 x10E3/uL [facility] (0.0-0.2) Eosinophil Absolute Count 0.3 X10E3/UL [facility] (0.0-0.4) monocyte count, blood, automated 0.5 X10E3/UL [facility] (0.1-1.0) lymphocyte count, blood, automated 2.1 X10E3/UL [facility] (0.7-4.5) Absolute Neutrophils 3.3 X10E3/UL [facility] (1.8-7.8) basophils as percent of blood leukocytes 1 % [facility] (0-3) eosinophils as percent of blood leukocytes 5 % [facility] (0-7) monocytes as percent of blood leukocytes 8 % [facility] (4-13) lymphocytes as percent of blood leukocytes 33 % [facility] (14-46) neutrophils as percent of blood leukocytes 53 % [facility] (40-74) platelet count 160 X10E3/UL [facility] (140-415) red blood cell distribution width 13.7 % [facility] (11.7-15.0) mean corpuscular hemoglobin concentration, RBC 32.0 G/DL [facility] (32.0-36.0) mean corpuscular hemoglobin, RBC 26.6 pg [facility] (27.0-34.0) Low mean corpuscular volume, RBC 83 fL [facility] (80-98) hematocrit, blood 43.5 % [facility] (36.0-50.0) hemoglobin, blood 13.9 g/dL [facility] (12.5-17.0) erythrocyte (RBC) count 5.23 X10E6/UL [facility] (4.10-5.60) leukocyte count, blood 6.2 X10E3/UL [facility] (4.0-10.5) prothrombin time (patient) 11.1 [facility] international normalized ratio (INR) 1.1 [facility] estimated glomerular filtration rate >60 [facility] anion gap, serum 12.8 [facility] calcium, serum 9.2 mg/dL [facility] [place] blood glucose, fasting 145 mg/dL [facility] [place] creatinine, serum 0.95 mg/dL [facility] urea nitrogen, blood 8.1 mg/dL [facility] [place] carbon dioxide, serum, total 30 mmol/L [facility] Nitin chloride, serum 99 mmol/L [facility] [place] potassium, serum 3.8 mmol/L [facility] sodium, serum 138 mmol/L [facility] [place] platelet count 285 10*3/uL [facility] red blood cell distribution width 12.8 % [facility] mean corpuscular hemoglobin concentration, RBC 32.7 g/dL [facility] mean corpuscular hemoglobin, RBC 27.3 pg [facility] mean corpuscular volume, RBC 83.5 fL [facility] hematocrit, blood 39.5 % [facility] hemoglobin, blood 12.9 g/dL [facility] erythrocyte (RBC) count 4.73 10*6/mm3 [facility] monocytes as percent of blood leukocytes 9.6 % [facility] lymphocytes as percent of blood leukocytes 15.0 % [facility] leukocyte count, blood 9.9 10*3/mm3 [facility] lipoprotein, beta, serum, point, quantitative, calculated 99 mg/dL [facility] (0-99) very low density lipoproteins 17 mg/dL [facility] (5-40) HDL cholesterol, serum 67 mg/dL [facility] (>39) triglyceride, serum, random 85 mg/dL [facility] (0-149) cholesterol, serum 183 mg/dL [facility] (100-199) alanine aminotransferase (SGPT), serum 24 1/L [facility] (0-55) aspartate aminotransferase (SGOT), serum 15 1/L [facility] (0-40) alkaline phosphatase, serum 55 1/L [facility] (25-160) bilirubin, serum, total 0.5 mg/dL [facility] (0.0-1.2) albumin/globulin ratio, serum 1.6 [facility] (1.1-2.5) globulin, serum 2.8 [facility] (1.5-4.5) albumin, serum 4.5 g/dL [facility] (3.5-4.8) protein, total, serum 7.3 g/dL [facility] (6.0-8.5) calcium, serum 10.1 mg/dL [facility] (8.6-10.2) carbon dioxide, venous blood 28 mmol/L [facility] (20-32) chloride, serum 102 mmol/L [facility] (97-108) potassium, serum 4.9 mmol/L [facility] (3.5-5.2) sodium, serum 140 mmol/L [facility] (135-145) urea nitrogen/creatinine ratio, serum 12 [facility] (8-27) estimated glomerular filtration rate >59 mL/min/1. 73 [facility] ( >59) creatinine, serum 0.93 mg/dL [facility] (0.76-1.27) urea nitrogen, blood 11 mg/dL [facility] (5-26) blood glucose, random 118 mg/dL [facility] (65-99) High basophil count, absolute 0.1 x10E3/uL [facility] (0.0-0.2) Eosinophil Absolute Count 0.4 X10E3/UL [facility] (0.0-0.4) monocyte count, blood, automated 0.5 X10E3/UL [facility] (0.1-1.0) lymphocyte count, blood, automated 2.0 X10E3/UL [facility] (0.7-4.5) Absolute Neutrophils 3.5 X10E3/UL [facility] (1.8-7.8) basophils as percent of blood leukocytes 1 % [facility] (0-3) eosinophils as percent of blood leukocytes 6 % [facility] (0-7) monocytes as percent of blood leukocytes 8 % [facility] (4-13) lymphocytes as percent of blood leukocytes 31 % [facility] (14-46) neutrophils as percent of blood leukocytes 54 % [facility] (40-74) platelet count 184 X10E3/UL [facility] (140-415) red blood cell distribution width 12.9 % [facility] (11.7-15.0) mean corpuscular hemoglobin concentration, RBC 33.6 G/DL [facility] (32.0-36.0) mean corpuscular hemoglobin, RBC 27.1 pg [facility] (27.0-34.0) mean corpuscular volume, RBC 81 fL [facility] (80-98) hematocrit, blood 43.2 % [facility] (36.0-50.0) hemoglobin, blood 14.5 g/dL [facility] (12.5-17.0) erythrocyte (RBC) count 5.36 X10E6/UL [facility] (4.10-5.60) leukocyte count, blood 6.4 X10E3/UL [facility] (4.0-10.5) HISTORY OF MEDICATION USE Medication Status Instructions Dates Provider Indications Com ments pantoprazole 40 mg tablet,delayed release (DR/EC) active Tanmay Jaeger MD sucralfate 1 gram tablet active Tanmay Jaeger MD metoprolol succinate 50 mg tablet extended release 24 hr active Take 1 tablet by mouth once a day Nirali Argueta atorvastatin 80 mg tablet active Take 1 tablet by mouth every evening Charlene Ambrosio metformin (Glucophage XR) 500 mg tablet extended release 24 hr active Tanmay Jaeger MD clopidogrel 75 mg tablet active Tanmay Jaeger MD metoprolol succinate 50 mg tablet extended release 24 hr completed - Roxane Esteban dapagliflozin propanediol 10 mg tablet active TAKE 1/2 TABLET BY MOUTH EVERY DAY Tanmay Jaeger MD diltiazem HCl 120 mg capsule,extended release 12 hr active TAKE 1 CAPSULE BY MOUTH EVERY DAY Haroon Golden ezetimibe 10 mg tablet active Take 1 tablet by mouth once daily Nirali Argueta Eliquis 5 mg tablet active Take 1 tablet by mouth twice a day Tona Main diltiazem HCl 120 mg capsule,extended release 12 hr completed Take 1 capsule by mouth once a day - Haroon [place] ranolazine 500 mg tablet extended release 12 hr active Take 1 tablet by mouth twice a day Ginny Pinon RN cholecalciferol (vitamin D3) 10 mcg (400 unit) tablet active 1 tablet by mouth once a day Heidy Christian NP Mylanta Maximum Strength 400-400-40 mg/5 mL suspension completed 10 ml by mouth as directed TAKE 10 - Tanmay Jaeger MD folic acid 400 mcg tablet active Take 1 tablet by mouth once a day [facility] allopurinol 300 mg tablet active Take 1 tablet by mouth once a day [facility] Farxiga 5 mg tablet active Take 2 tablet by mouth once a day Tanmay Jaeger MD tadalafil 20 mg tablet completed TAKE 1 TABLET BY MOUTH ONCE DAILY NEEDED - [facility] ferrous sulfate 325 mg (65 mg iron) tablet,delayed release (DR/EC) active TAKE 1 TABLET BY MOUTH EVERY DAY Tanmay Jaeger MD DICLOFENAC SODIUM 75 MG ORAL TABLET DELAYED RELEASE completed ONE TABLET DAILY - TORRI FARR MD LEVAQUIN 500 MG ORAL TABLET completed one tab. daily - TORRI FARR MD LISINOPRIL 2.5 MG ORAL TABLET completed ONE TAB. DAILY - TORRI FARR MD simvastatin 40 mg tablet completed 1 tablet once a day - [facility] ASPIRIN 81 MG ORAL TABLET completed 1 tablet once a day - Ginny GUERRERO metformin 500 mg tablet completed take one and half in the am and one in the pm - Tanmay Jaeger MD SOCIAL HISTORY Date Observation Value Provider personal history of marijuana use no Tanmay Jaeger MD drug use no Tanmay Jaeger MD alcohol use no Tanmay Jaeger MD smoking status Never smoker Tanmay ferguson MD personal history of marijuana use no Tanmay Jaeger MD drug use no Tanmay Jaeger MD alcohol use no Tanmay Jaeger MD smoking status Never smoker Tanmay ferguson MD personal history of marijuana use no Tanmay Jaeger MD drug use no Tanmay Jaeger MD alcohol use no Tanmay Jaeger MD smoking status Never smoker Tanmay ferguson MD personal history of marijuana use no Tyler Ricardo MD drug use no Tyler Ricardo MD alcohol use no Tyler Ricardo MD smoking status Never smoker Tyler Ricardo MD personal history of marijuana use no Tanmay Jaeger MD drug use no Tanmay Jaeger MD alcohol use no Tanmay Jaeger MD smoking status Never smoker Tanmay ferguson MD personal history of marijuana use no Tanmay Jaeger MD drug use no Tanmay Jaeger MD alcohol use no Tanmay Jaeger MD smoking status Never smoker Tanmay ferguson MD personal history of marijuana use no Ginny Ventimiglia BUILDING 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 drug use no Ginny Ventimig radha BUILDING 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 alcohol use no Ginny Ventimig radha BUILDING 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 smoking status Never smoker Ebony Lopez social history reviewed E&M revi ewed - no changes required Tanmay Jaeger MD social history E&M Smoking Histo ry: P atient has never smoked. Tanmay Jaeger MD social history reviewed E&M revi ewed - no changes required Heidy Smithad PAPER SUPERVISOR social history E&M S moking History: Eulalio carrillo has never smoked. Heidy Raderchristina PAPER SUPERVISOR smoking status Never smoker Heidy Bryant i PAPER SUPERVISOR social history E&M S moking History: Eulalio carrillo has never smoked. Tanmay Jaeger MD smoking status Never smoker Tanmay ferguson MD social history reviewed E&M revi ewed - no changes required Tanmay Jaeger MD social history E&M S moking History: Eulalio carrillo has never smoked. Tanmay Jaeger MD smoking status Never smoker Tanmay ferguson MD social history reviewed E&M revi ewed - no changes required Tanmay Jaeger MD smoking status Never smoker Tanmay ferguson MD number of grandchildren Tanmay Jaeger MD social history reviewed E&M revi ewed - no changes required Tanmay Jaeger MD FUNCTIONAL STATUS Date Observation Value Provider HRA, CV Assess/Plan, Angina (inactive) Management Plan continue current therapy Tanmay Jaeger MD INSURANCE PROVIDERS Payer name Policy type / Coverage type Irma red democrat ID AARP MEDICARE ADVANTAGE ([facility] COMPLETE PPO) Other [id number] ADVANCE DIRECTIVES Name Date DISCUSSED - NO DECISION MADE TREATMENT PLAN Date Name Performer [id number],CC linically compensated. Will arrange for repeat echo Tanmay Jaeger MD [id number],Eulalio Han gerardo is scheduled for an EGD on 10/15/2023. Will have patient follow up after EGD and consider Cardiac cath if no cause for chest pains is noted on the EGD. His updated medication list for this problem includes: Diltiazem Hcl 120 Mg Capsule,extended Release 12 Hr (Diltiazem hcl) ..... Take 1 capsule by mouth once a day Ranolazine 500 Mg Tablet Extended Release 12 Hr (Ranolazine) ..... Take 1 tablet by mouth twice a day Tanmay Jaeger MD [id number],C,M ost recent regadenoson stress test was negative for ischemia (01/2023). Tanmay Jaeger MD [id number],C,B lood pressure control is satisfactory. BP today: 131/62 P rior BP: 126/66 (09/12/2023) His updated medication list for this problem includes: Diltiazem Hcl 120 Mg Capsule,extended Release 12 Hr (Diltiazem hcl) ..... Take 1 capsule by mouth once a day Tanmay Jaeger MD [id number],C, P atient is scheduled for an EGD on 10/15/2023. Will have patient follow up after EGD and consider Cardiac cath if no cause for chest pains is noted on the EGD. W ill start Ranexa 500 mg BID and if symptoms persist on Ranexa or delays on EGD then will have patient follow up sooner and consider cardiac cath at that point. His updated medication list for this problem includes: Ranolazine 500 Mg Tablet Extended Release 12 Hr (Ranolazine) ..... Take 1 tablet by mouth twice a day Tanmay Jaeger MD [id number],C, M ost recent regadenoson stress test was negative for ischemia (01/2023). Heidy Christian NP [id number],C, C ontinues on Iron/Folic acid supplements Heidy Christian NP [id number],C, M anaged per PCP H is updated medication list for this problem includes: Farxiga 5 Mg Tablet (Dapagliflozin propanediol) ..... Take 1/2 tablet by mouth once a day Metformin 500 Mg Tablet (Metformin) ..... Take one and half in the am and one in the pm Heidy Christian NP [id number],C, B P well controlled B P today: 126/66 P rior BP: 128/67 (08/08/2023) Heidy Raderchristina PAPER SUPERVISOR [id number],C, C linically compensated. His recent echocardiogram demonstrated normal LVSF, EF 55%. Heidy Smithad RIVERS [id number],C, C ontinues on iron supplement. Tanmay Jaeger MD [id number],C, C ontinues on metformin. Last A1c 7.1-2% %. Will reduce farxiga to 5mg daily due to more frequent urination. Advised meticulous cleaning of groin and peroneal region after urinating on a daily basis. Tanmay Jaeger MD [id number],Guille, B lood pressure control is satisfactory. Does not currently take any anti-hypertensive agents. Reports systolic BP was 100 at your office recently. Tanmay Jaeger MD [id number],C, W ill reduce farxiga to 5mg daily since he complains of frequent urination. Tanmay Jaeger MD [id number],C, C hest pain free. Most recent regadenoson stress test was negative for ischemia. The patient has been reassured. Tanmay Jaeger MD [id number],C C linically compensated. His recent echocardiogram demonstrated normal LVSF, EF 55%. Tanmay Jaeger MD [id number],C, C hest pain free. Recent regadenoson stress test was negative for ischemia. The patient has been reassured. Tanmay Jaeger MD [id number],C, C ontinues on metformin. Last A1c 6.9%. Dr. Conti recently prescribed farxiga 10mg daily. Advised meticulous cleaning of groin and peroneal region after urinating on a daily basis. Tanmay Jaeger MD [id number],S, C linically compensated. His recent echocardiogram demonstrated nomral LVSF, EF 55%. Tanmay Jaeger MD [id number],W, B P is elevated today. Advised routine home monitoring and dietary sodium restriction. We aim for a BP of 130/80 or lower. Tanmay Jaeger MD [id number],C, C linically compensated. He would certainly benefit from an echo to evaluate his LVF and wall motion. Tanmay Jaeger MD [id number],W, A s he has new changes on his EKG compared to his last EKG, he would certainly benefit from a regadenoson stress test and an echocardiogram. Tanmay Jaeger MD [id number],C, C ontinues on metformin. Last A1c 6.9%. Tanmay Jaeger MD [id number],C, B P is elevated today but normally better controlled at home per patient. Tanmay Jaeger MD Cardiology:increase dose of farxiga as jose e had increased blood sugars since DCing metformin Tanmay Jaeger MD Cardiology:well cont rolled continue current meds B P today: 112/58 P rior BP: 127/68 (12/31/2024) Labs Reviewed: C reat: 0.78 (01/25/2018) C hol: 125 (01/25/2018) HDL: 58 (01/25/2018) LDL: 52 (01/25/2018) T (01/25/2018) His updated medication list for this problem includes: Metoprolol Succinate 50 Mg Tablet Extended Release 24 Hr (Metoprolol succinate) ..... Take 1 tablet by mouth once a day Diltiazem Hcl 120 Mg Capsule,extended Release 12 Hr (Diltiazem hcl) ..... Take 1 capsule by mouth every day This visit has been a part of the consistent, comprehensive, and ongoing management of the chronic medical condition(s) listed above for the patient. Tanmay Jaeger MD Cardiology: o n eliquis; sinus today Tanmay Jaeger MD Cardiology:OM1 - GIOVANNI Nov 2024 C ontiue plavix and eliquis 6 months W ill DC plavix after 6 nonths N eeds blood results from [facility] and US result Tanmay Jaeger MD Cardiology:Continue medical therapy. R cent NSTEMI where culprit vessele was stented GIOVANNI OM1. At [facility] asympomatic i f he remains asymptomatic will get a regadenoson myoview scan done; if he is symptomatic will proceed with cardiac cath. Tanmay Jaeger MD Cardiology: H is updated medication list for this problem includes: Metoprolol Succinate 50 Mg Tablet Extended Release 24 Hr (Metoprolol succinate) ..... Take 1 tablet by mouth once a day Diltiazem Hcl 120 Mg Capsule,extended Release 12 Hr (Diltiazem hcl) ..... Take 1 capsule by mouth every day BP today: 127/68 P rior BP: 119/62 (11/26/2024) Labs Reviewed: C reat: 0.78 (01/25/2018) C hol: 125 (01/25/2018) HDL: 58 (01/25/2018) LDL: 52 (01/25/2018) T (01/25/2018) Tanmay Jaeger MD Cardiology: E F 55% 01/2023 D enies any SOB or CP H is updated medication list for this problem includes: Diltiazem Hcl 120 Mg Capsule,extended Release 12 Hr (Diltiazem hcl) ..... Take 1 capsule by mouth once a day Ranolazine 500 Mg Tablet Extended Release 12 Hr (Ranolazine) ..... Take 1 tablet by mouth twice a day Tanmay Jaeger MD Cardiology:needs to see ENT C annot hold eliquis or Plavix Tanmay Jaeger MD Cardiology:on eliqui s Tanmay Jaeger MD Cardiology:IN light of his new sx of diarhea, abdominal discomfort and loss of appetite, will hold metformin and see if his sx improve P lease see GI O n dapaglifozin Tanmay Jaeger MD Cardiology: M anaged per pt The following medications were removed from the medication list: Metformin 500 Mg Tablet (Metformin) ..... Take one and half in the am and one in the pm H is updated medication list for this problem includes: Metformin (glucophage Xr) 500 Mg Tablet Extended Release 24 Hr (Metformin (glucophage xr)) Dapagliflozin Propanediol 10 Mg Tablet (Dapagliflozin propanediol) ..... Take 1/2 tablet by mouth every day Farxiga 5 Mg Tablet (Dapagliflozin propanediol) ..... Take 1/2 tablet by mouth once a day Tanmay Jaeger MD Cardiology:well cont rolled continue medrx B P today: 119/62 P rior BP: 132/70 (08/21/2024) Labs Reviewed: C reat: 0.78 (01/25/2018) C hol: 125 (01/25/2018) HDL: 58 (01/25/2018) LDL: 52 (01/25/2018) T (01/25/2018) His updated medication list for this problem includes: Metoprolol Succinate 50 Mg Tablet Extended Release 24 Hr (Metoprolol succinate) Diltiazem Hcl 120 Mg Capsule,extended Release 12 Hr (Diltiazem hcl) ..... Take 1 capsule by mouth every day Tanmay Jaeger MD Cardiology:On triple Anti-Platelet therapy at present s/p NSTEMI. will remain on eliquis after December 08 due to hx of AFib Tanmay Jaeger MD Cardiology:Rcent NST SHIRA where culprit vessele was stented GIOVANNI OM1. At [facility] asympomatic; see him in a month if he remains asymptomatic will get a regadenoson myoview scan done; if he is symptomatic will proceed with cardiac cath. Tanmay Jaeger MD Cardiology:denies of marleny quinones MD Cardiology: H is updated medication list for this problem includes: Diltiazem Hcl 120 Mg Capsule,extended Release 12 Hr (Diltiazem hcl) ..... Take 1 capsule by mouth once a day BP today: 132/70 P rior BP: 121/-1 (05/28/2024) Labs Reviewed: C reat: 0.78 (01/25/2018) C hol: 125 (01/25/2018) HDL: 58 (01/25/2018) LDL: 52 (01/25/2018) T (01/25/2018) Tyler Ricardo MD Cardiology:likely nolan d afib at ortho office w ill check a monitor Tyler Ricardo MD Cardiology: E F 55% 01/2023 D enies any SOB or CP H is updated medication list for this problem includes: Diltiazem Hcl 120 Mg Capsule,extended Release 12 Hr (Diltiazem hcl) ..... Take 1 capsule by mouth once a day Ranolazine 500 Mg Tablet Extended Release 12 Hr (Ranolazine) ..... Take 1 tablet by mouth twice a day Tyler Ricardo MD Cardiology:EF 55% 2022 D enies any SOB or CP H is updated medication list for this problem includes: Diltiazem Hcl 120 Mg Capsule,extended Release 12 Hr (Diltiazem hcl) ..... Take 1 capsule by mouth once a day Ranolazine 500 Mg Tablet Extended Release 12 Hr (Ranolazine) ..... Take 1 tablet by mouth twice a day Tanmay Jaeger MD Cardiology: r emains on PO iron aTnmay Jaeger MD Cardiology:Managed p er pt H is updated medication list for this problem includes: Farxiga 5 Mg Tablet (Dapagliflozin propanediol) ..... Take 1/2 tablet by mouth once a day Metformin 500 Mg Tablet (Metformin) ..... Take one and half in the am and one in the pm Tanmay Jaeger MD Cardiology: B P today: 121/63 P rior BP: 132/66 (02/27/2024) H is updated medication list for this problem includes: Diltiazem Hcl 120 Mg Capsule,extended Release 12 Hr (Diltiazem hcl) ..... Take 1 capsule by mouth once a day Tanmay Jaeger MD Cardiology: p atient is in NSR today R emains on diltiazem and tolerating well o n elliquis for AC H is updated medication list for this problem includes: Diltiazem Hcl 120 Mg Capsule,extended Release 12 Hr (Diltiazem hcl) ..... Take 1 capsule by mouth once a day Ranolazine 500 Mg Tablet Extended Release 12 Hr (Ranolazine) ..... Take 1 tablet by mouth twice a day Tanmay Jaeger MD Cardiology: H is updated medication list for this problem includes: Farxiga 5 Mg Tablet (Dapagliflozin propanediol) ..... Take 1/2 tablet by mouth once a day Metformin 500 Mg Tablet (Metformin) ..... Take one and half in the am and one in the pm Tanmay Jaeger MD Cardiology:EF 55% 2022 D enies any SOB or CP H is updated medication list for this problem includes: Diltiazem Hcl 120 Mg Capsule,extended Release 12 Hr (Diltiazem hcl) ..... Take 1 capsule by mouth once a day Ranolazine 500 Mg Tablet Extended Release 12 Hr (Ranolazine) ..... Take 1 tablet by mouth twice a day Tanmay Jaeger MD Cardiology:well cont rolled B P today: 132/66 P rior BP: 130/71 (10/24/2023) Labs Reviewed: C reat: 0.78 (01/25/2018) C hol: 125 (01/25/2018) HDL: 58 (01/25/2018) LDL: 52 (01/25/2018) T (01/25/2018) His updated medication list for this problem includes: Diltiazem Hcl 120 Mg Capsule,extended Release 12 Hr (Diltiazem hcl) ..... Take 1 capsule by mouth once a day Tanmay Jaeger MD Cardiology: p atient is in NSR today R emains on diltiazem and tolerating well o n elliquis for AC H is updated medication list for this problem includes: Diltiazem Hcl 120 Mg Capsule,extended Release 12 Hr (Diltiazem hcl) ..... Take 1 capsule by mouth once a day Ranolazine 500 Mg Tablet Extended Release 12 Hr (Ranolazine) ..... Take 1 tablet by mouth twice a day Tanmay Jaeger MD Cardiology: H is updated medication list for this problem includes: Farxiga 5 Mg Tablet (Dapagliflozin propanediol) ..... Take 1/2 tablet by mouth once a day Metformin 500 Mg Tablet (Metformin) ..... Take one and half in the am and one in the pm [facility] Cardiology:remains on PO iron Am [facility] Cardiology:EF normal ized on last echo earlier this year c ontinue present medication regimen H is updated medication list for this problem includes: Diltiazem Hcl 120 Mg Capsule,extended Release 12 Hr (Diltiazem hcl) ..... Take 1 capsule by mouth once a day Ranolazine 500 Mg Tablet Extended Release 12 Hr (Ranolazine) ..... Take 1 tablet by mouth twice a day [facility] Cardiology:BP at a l 130/71 c ontinue present medication regimen H is updated medication list for this problem includes: Diltiazem Hcl 120 Mg Capsule,extended Release 12 Hr (Diltiazem hcl) ..... Take 1 capsule by mouth once a day [facility] Cardiology:patient i s in NSR today R emains on diltiazem and tolerating well o n elliquis for AC H is updated medication list for this problem includes: Diltiazem Hcl 120 Mg Capsule,extended Release 12 Hr (Diltiazem hcl) ..... Take 1 capsule by mouth once a day Ranolazine 500 Mg Tablet Extended Release 12 Hr (Ranolazine) ..... Take 1 tablet by mouth twice a day [facility] Cardiology:Clinicall y compensated. Will arrange for repeat echo Tanmay Jaeger MD Cardiology:Patient i s scheduled for an EGD on 10/15/2023. Will have patient follow up after EGD and consider Cardiac cath if no cause for chest pains is noted on the EGD. His updated medication list for this problem includes: Diltiazem Hcl 120 Mg Capsule,extended Release 12 Hr (Diltiazem hcl) ..... Take 1 capsule by mouth once a day Ranolazine 500 Mg Tablet Extended Release 12 Hr (Ranolazine) ..... Take 1 tablet by mouth twice a day Tanmay Jaeger MD Cardiology:Most rece nt regadenoson stress test was negative for ischemia (01/2023). Tanmay Jaeger MD Cardiology:Blood pre ssure control is satisfactory. BP today: 131/62 P rior BP: 126/66 (09/12/2023) His updated medication list for this problem includes: Diltiazem Hcl 120 Mg Capsule,extended Release 12 Hr (Diltiazem hcl) ..... Take 1 capsule by mouth once a day Tanmay Jaeger MD Cardiology: Eulalio gerardo is scheduled for an EGD on 10/15/2023. Will have patient follow up after EGD and consider Cardiac cath if no cause for chest pains is noted on the EGD. W ill start Ranexa 500 mg BID and if symptoms persist on Ranexa or delays on EGD then will have patient follow up sooner and consider cardiac cath at that point. His updated medication list for this problem includes: Ranolazine 500 Mg Tablet Extended Release 12 Hr (Ranolazine) ..... Take 1 tablet by mouth twice a day Tanmay Jaeger MD Cardiology: M ost recent regadenoson stress test was negative for ischemia (01/2023). Heidy Christian NP Cardiology: C ontinues on Iron/Folic acid supplements Heidy Christian NP Cardiology: M anaged per PCP H is updated medication list for this problem includes: Farxiga 5 Mg Tablet (Dapagliflozin propanediol) ..... Take 1/2 tablet by mouth once a day Metformin 500 Mg Tablet (Metformin) ..... Take one and half in the am and one in the pm Heidy Christian NP Cardiology: B P well controlled B P today: 126/66 P rior BP: 128/67 (08/08/2023) Heidy Christian PAPER SUPERVISOR Cardiology: C linically compensated. His recent echocardiogram demonstrated normal LVSF, EF 55%. Heidy Smithad RIVERS Cardiology: C ontinues on iron supplement. Tanmay Jaeger MD Cardiology: C ontinues on metformin. Last A1c 7.1-2% %. Will reduce farxiga to 5mg daily due to more frequent urination. Advised meticulous cleaning of groin and peroneal region after urinating on a daily basis. Tanmay Jaeger MD Cardiology: B lood pressure control is satisfactory. Does not currently take any anti-hypertensive agents. Reports systolic BP was 100 at your office recently. Tanmay Jaeger MD Cardiology: W ill reduce farxiga to 5mg daily since he complains of frequent urination. Tanmay Jaeger MD Cardiology: C hest pain free. Most recent regadenoson stress test was negative for ischemia. The patient has been reassured. Tanmay Jaeger MD Cardiology: C linically compensated. His recent echocardiogram demonstrated normal LVSF, EF 55%. Tanmay Jaeger MD Cardiology: C hest pain free. Recent regadenoson stress test was negative for ischemia. The patient has been reassured. Tanmay Jaeger MD Cardiology: C ontinues on metformin. Last A1c 6.9%. Dr. Conti recently prescribed farxiga 10mg daily. Advised meticulous cleaning of groin and peroneal region after urinating on a daily basis. Tanmay Jaeger MD Cardiology: C linically compensated. His recent echocardiogram demonstrated nomral LVSF, EF 55%. Tanmay Jaeger MD Cardiology: B P is elevated today. Advised routine home monitoring and dietary sodium restriction. We aim for a BP of 130/80 or lower. Tanmay Jaeger MD Cardiology: C linically compensated. He would certainly benefit from an echo to evaluate his LVF and wall motion. Tanmay Jaeger MD Cardiology: A s he has new changes on his EKG compared to his last EKG, he would certainly benefit from a regadenoson stress test and an echocardiogram. Tanmay Jaeger MD Cardiology: C ontinues on metformin. Last A1c 6.9%. Tanmay Jaeger MD Cardiology: B P is elevated today but normally better controlled at home per patient. Tanmay Jaeger MD Date Name Monitor - Telemetry (Mobile Cardiac) Complete Echo Stress Regadenoson Complete Echo URIC ACID TSH, 3RD GENERATION W/REFLEX TO FT4 HEMOGLOBIN A1c LIPID PANEL COMPREHENSIVE METABO LIC PANEL, W/EGFR CBC (INCLUDES DIFF/P LT) HEMOGLOBIN A1c Creatinine Clearance Creatinine Clearance HEMOGLOBIN A1c TSH, 3RD GENERATION W/REFLEX TO FT4 LIPID PANEL COMPREHENSIVE METABO LIC PANEL W/EGFR CBC (INCLUDES DIFF/P LT) URIC ACID URIC ACID SED RATE BY MODIFIED WESTERGREN RHEUMATOID FACTOR PSA, TOTAL THYROID PANEL WITH T SH, 3RD GENERATION LIPID PANEL COMPREHENSIVE METABO LIC PANEL W/EGFR CBC (INCLUDES DIFF/P LT) HISTORY OF PROCEDURES Procedure Date Procedure Name Provider Procedure Notes S tatus Complex e/m visit add on Tanmay Jaeger MD completed Complex e/m visit add on Tanmay Jaeger MD completed Complex e/m visit add on Tanmay Jaeger MD completed EKG Tanmay Jaeger MD complet ed Complex e/m visit add on Tanmay Jaeger MD completed EKG Tanmay Jaeger MD complet ed EKG Tanmay Jaeger MD complet ed EKG Tanmay Jaeger MD complet ed EKG Tanmay Jaeger MD complet ed EKG Tanmay Jaeger MD complet ed EKG Tanmay Jaeger MD complet ed EKG Tanmay Jaeger MD complet ed Stress EKG TORRI FARR MD completed Regadenoson, 4 units TORRI FARR MD completed Cardiolite, 2 units TORRI FARR MD completed SPECT Images Tanmay Jaeger MD compl eted
--- OUTSIDE RECORDS SUMMARY | 2025-04-01 08:49 | XMS_ITS ---
Author Name [facility] Address [address] [place] [address] Care Team Providers Care Mamma Logist Name Role Phone KALEE, ANNIE Primary Care [...] PART B Jan 04, 2004 PART B [id number] ESAZULEMAVILMA PACKER PATIENT MEDICARE (WNR) MEDICARE (M) PART A Aug 05, 2002 PART A [id number] ESAZULEMAVILMA OCHOA PATIENT Selected Encounter This section includes the information on record at [facility] for the Encounter. Date/Time Encounter Type Encounter Description Reason Provider Source Aug 14, 2024 10:30 AM OFFICE O/P EST MOD 30 MIN PRIMARY CARE/MEDICINE ICD-10-CM I48.0 Paroxysmal atrial fibrillation LZIET DIAMOND Encounter Template Text not used by [facility] Assessments - Encounter Diagnoses This section includes the primary and secondary diagnoses documented for the Encounter. Date/Time Primary/Secondary Diagnosis Diagnosis Name Provider Source Aug 14, 2024 12:23 PM PRIMARY Paroxysmal atrial fibrillation PAOLO DIAMOND [facility] Aug 14, 2024 12:23 PM SECONDARY Anemia, unspecified PAOLO DIAMOND [facility] Aug 14, 2024 12:23 PM SECONDARY Gastro-esophageal reflux disease without esophagitis PAOLO DIAMOND [facility] Aug 14, 2024 12:23 PM SECONDARY Gout, unspecified PAOLO DIAMOND [facility] Aug 14, 2024 12:23 PM SECONDARY Hyperlipidemia, unspecified PAOLO DIAMOND [facility] Aug 14, 2024 12:23 PM SECONDARY Type 2 diabetes mellitus without complications PAOLO DIAMOND [facility] Aug 14, 2024 12:23 PM SECONDARY Unspecified protein-calorie malnutrition PAOLO DIAMOND [facility] Aug 14, 2024 12:23 PM SECONDARY Vitamin D deficiency, unspecified PAOLO DIAMOND [facility] Plan of Treatment: Future Appointments (+ 6 months) and Future Tests (+/- 45 days) The Plan of Treatment section includes future care activities for the patient from all [facility]. This section includes future appointments and future orders which are active, pending or scheduled. Future Appointments This section includes appointments that were scheduled to occur 6 months from the date of the Encounter, up to a maximum of 20 appointments. The data comes from all [facility] facilities. Appointment Date/Time Appointment Type Appointme nt Facility Name Oct 27, 2024 09:00 AM AMBULATORY - MEDICINE [facility] Nov 27, 2024 01:00 PM AMBULATORY - MEDICINE [facility] Lab Results: +/- 30 days of the encounter This section includes the Chemistry and Hematology Lab Results on record with [facility] for the patient. Radiology Reports and Pathology Reports are provided separately, in subsequent sections. Lab Results This section contains the Chemistry/Hematology Results that were resulted 30 days before or 30 daysafter the date of the Encounter. Date/Time Source Result Type Result - Unit Interpretation Reference Range Specimen Type Comment Aug 14, 2024 11:27 AM [facility] VITAMIN D, 25-HYDROXY SERUM Specimen Type: SERUM No comment entered. Ordering Provider: ANDREINA DIAMOND Report Released Date/Time: Aug 14, 2024 11:07 AM Reporting Lab: [address] [address] Performing Lab: [address] [phone] VITAMIN D, 25-HYDROXY 47.5 ng/mL 30-96 Aug 14, 2024 11:27 AM [facility] HGA1C BLOOD Specimen Type: BLOOD No comment entered. Ordering Provider: JANICE DIAMOND Report Released Date/Time: Aug 14, 2024 11:07 AM Reporting Lab: [address] [phone] Performing Lab: [address] [address] HGA1C 6.9 H 4.0-6.0 Aug 14, 2024 11:27 AM [facility] COMPREHENSIVE METABOLIC PANEL PLASMA Specimen Type: PLASMA Comment: No hemolysis noted. Ordering Provider: JANICE DIAMOND Report Released Date/Time: Aug 14, 2024 11:07 AM Reporting Lab: [address] [address] Performing Lab: [address] [address] CREATININE 1.15 mg/dL 0.7-1.3 UREA NITROGEN 19.7 [...] 62.0 >60 Aug 14, 2024 11:27 AM [facility] CBC BLOOD Specimen Type: BLOOD No comment entered. Ordering Provider: JANICE DIAMOND Report Released Date/Time: Aug 14, 2024 11:07 AM Reporting Lab: [facility] [address] [place] [phone] Performing Lab: [facility] [address] [place] [phone] WBC 6.1 10*3/uL 3.6-11.2 RBC 5.32 10*6/uL [...] AUTO % 1 LYMPHOCYTES, ABSOLUTE 1.43 10*3/uL 0.77- 4.50 MONOCYTES, ABSOLUTE 0.65 10*3/uL 0.19-0. 80 NEUTROPHILS, ABSOLUTE 3.71 10*3/uL 2.10- 8.00 EOSINOPHILS, ABSOLUTE 0.25 10*3/uL 0.00- 0.60 BASOPHILS, ABSOLUTE 0.07 10*3/uL 0.00-0. 20 Aug 14, 2024 11:27 AM [facility] TSH (MA-PB) SERUM Specimen Type: SERU M No comment entered. Ordering Provider: JANICE DIAMOND Report Released Date/Time: Aug 14, 2024 11:07 AM Reporting Lab: [facility] [address] [facility] [address] Performing Lab: [facility] [address] [place] [phone] TSH 3.238 u[IU]/mL 0.47-5 Aug 14, 2024 11:27 AM [facility] LIPID PANEL (STL) PLASMA Specimen Type: PLASM A Comment: No hemolysis noted. Ordering Provider: JANICE DIAMOND Report Released Date/Time: Aug 14, 2024 11:07 AM Reporting Lab: [facility] [address] [facility] [address] Performing Lab: [facility] [address] [facility] [address] [phone] CHOLESTEROL 168 mg/dL 0-200 TRIGLYCERIDE 79 mg/dL 0-150 CALCULATED LDL 80 mg/dL HDL(New) 72 mg/dL >40 Aug 14, 2024 10:40 AM [facility] GLUCOSE,BLOOD-poct (STL) BLOOD Specimen Type: BLOOD Comment: Test Performed by: [employer] Meter #: [id number] Ordering Provider: JANICE DIAMOND Report Released Date/Time: Aug 14, 2024 03:30 PM Reporting Lab: [facility] [address] [address] Performing Lab: [facility] [address] [phone] GLUCOSE,BLOOD-poct (STL) 118 mg/dL H 72-99 Vital Signs: All taken on the encounter date This section contains inpatient and outpatient Vital Signs collected on the date of the Encounter. Date/Time Temperature Pulse Blood Pressure Respiratory Rate SP02 Pain Height Weight Body Mass Index Source Aug 14, 2024 10:41 AM 97.5 70 102/60 18 97 0 73 157 21 [facility] Social History: Smoking Status (Most current) and [...] place. Date/Time Current Smoking Status Comment Facil itdayo Mar 04, 2020 03:41 PM VA-TOBACCO NEVER USED [facility] Encounter Notes: All associated encounter notes This section contains the clinical notes associated to the Encounter. Date/Time Encounter Note(s) Provider Source Aug 21, 2024 10:20 AM PHYSICIAN LETTERS: LOCAL TITLE: TEST RESULT GENERAL LETTER [facility] STANDARD TITLE: PHYSICIAN LETTERS DATE OF NOTE: AUG 21, 2024@10:20 ENTRY DATE: AUG 21, 2024@10:20:10 AUTHOR: JANICE DIAMOND COSIGNER: URGENCY: STATUS: COMPLETED [facility] [address] [place] [address] AUG 21, 2024 GENE LEWIS [address] [place] [address] [place], [place] [address] Dear Gene Lewis, I would like to [...] you have any questions please call your watch caser. I look forward to seeing you at your next clinic appointment. Thank you for choosing the [facility] for your healthcare. FUTURE APPOINTMENTS: 11/19/2024 14:00 SAMANTHA-ST CLR PACT PHONE NUTR 02/13/2025 14:00 SAMANTHA-ST CLR PACT 5 PCP Sincerely, JANICE DIAMOND, ANP- NURSE PRACTITIONER GENE LEWIS [facility] Aug 14, 2024 10:51 AM PRIMARY CARE NOTE: LOCAL TITLE: PRIMARY CARE PROVIDER ESTABLISHED VISIT [facility] STANDARD TITLE: PRIMARY CARE NOTE DATE OF NOTE: AUG 14, 2024@10:51 ENTRY DATE: AUG 14, 2024@10:51:54 AUTHOR: JANICE DIAMOND EXP COSIGNER: URGENCY: STATUS: COMPLETED REASON FOR VISIT/CHIEF COMPLAINT: Routine HPI: presents today for routine visit for chronic conditions. Following with Dr Velasquez- [facility] PCP q 3-4 months, Dr Justyn Mckeon- [facility] cardiology Diabetes Mellitus Type 2: Taking metformin and Farxiga. Denies polyuria, polydipsia or polyphagia. Last A1c was 7. Had foot exam completed in May by non [facility] podiatry. Reports a normal diabetic eye exam [...] On daily iron supplement. malnutrition: Following with senior security engineer and supplementing diet with Glucerna. Has gained a few lbs and feeling good about this. SOURCE(S) OF HISTORY: Patient PAST MEDICAL HISTORY: 1) Past history of procedure comment: 2005 appendectomy comment: 09/2003 right knee patellar tendon surgery with hardware placemen comment: 2018 bilateral eye cataract surgery 2) Diabetes Mellitus Type 2 (RUST [id number]) 3) Hyperlipidemia (RUST [id number]) 4) History of gastric ulcer 5) Gout (RUST [id number]) 6) GERD - Gastro-Esophageal Reflux Disease (RUST [id number]) 7) Vitamin D Deficiency (RUST [id number]) 8) Low Back Pain (RUST [id number]) 9) Anemia (RUST [id number]) 10) Paroxysmal atrial fibrillation ALLERGIES: LISINOPRIL ALLERGY [...] medication list with the patient and/or his/her care-elderly caregiver. Handwritten corrections, additions and/or deletions were made [...] swelling/stiffness/pain, back pain, neck pain and edema /MERGERS AND ACQUISITIONS ASSOCIATE: Denies dysuria, flank pain, frequency, hesitancy, urgency, [...] regimen. Voiced interest in filling medication at [facility], but he will discuss with non [facility] [...] side effects of prescribed medication and treatments. [place] verbalizes understanding and is in agreement with the plan of care. Patient was instructed to keep all scheduled appointments and contact medical coding auditor for any additional problems. /cristiane/ UNA MARS NURSE PRACTITIONER Signed: 08/14/2024 12:23 JANICE DIAMOND [facility] Aug 14, 2024 10:44 AM NURSING [...] states he had a bowel resection at [facility] January of 2024. Pt has a script Farxiga 10md 1 x daily and Eliquis 5mg 2x daily and would like the script filled through the [facility]. Mode of Arrival: Assistive Device: walker Allergy [...] mental or emotional illness? No My [facility] ([facility]), please select appointment type: Face to face: Yes-Do you have an upgraded (Premium) account which gives you the added benefit of Secure Messaging with your Primary Care Provider and refilling your prescriptions online? Contact provided Primary Care phone number and encouraged to call if any questions or concerns. Review that after hours nurse line [phone] and emergency room are available 28/05 for [...] Registered Nurse Signed: 08/14/2024 11:50 INDER MENA [facility]
[2025-04-01 09:28] LABS: Basophils Percent Auto 0.6 % (0.2-1.2); Eosinophils Absolute Auto 0.2 K/mm3 (0-0.3); Hematocrit 47.1 % (42.0-52.0); Hemoglobin 14.3 g/dL (14.0-18.0); Immature Granulocyte Absolute 0.03 K/mm3 (0.00-0.031); Immature Granulocyte Percent A 0.4 % (0-0.5); Mean Corpuscular HGB Conc 30.4 g/dl (32-36); Mean Corpuscular Hemoglobin 27.2 pg (26-34); Mean Corpuscular Volume 89.5 fl (80-100); Mean Platelet Volume 10.8 fl (7.4-10.4); Monocytes Absolute Auto 0.7 K/mm3 (0.1-0.6); Monocytes Percent Auto 10.2 % (2.6-8.5); Neutrophils Absolute Auto 4.1 K/mm3 (1.3-6.7); Neutrophils Percent Auto 61.8 % (45.5-73.1); Platelet Count Result 160 k/mm3 (150-375); Red Blood Count 5.26 M/mm3 (4.6-6.20); Red Cell Distribution Width 13.6 % (11.5-14.5); White Blood Count 6.7 K/mm3 (4.5-10.0)
[2025-04-01 09:37] LABS: Hemoglobin A1C 9.5 % (<5.7)
[2025-04-01 09:40] LABS: Alanine Aminotransferase 36 U/L (6-50); Albumin Level 4.3 g/dL (3.5-5.1); Alkaline Phosphatase 80 U/L (38-126); Anion Gap 6 mmol/L (4-12); Aspartate Amino Transferase 26 U/L (17-59); Bilirubin,Total 0.5 mg/dL (0.2-1.3); Blood Urea Nitrogen 30 mg/dL (9-20); Calcium 9.8 mg/dL (8.4-10.2); Carbon Dioxide 30 mmol/L (22-30); Chloride 103 mmol/L (98-107); Cholesterol 121 mg/dL (0-200); Estimated Glomerular Filt Rate 54; Glucose 249 mg/dL (65-110); HDL Direct 78 mg/dL; Potassium 4.2 mmol/L (3.4-5.0); Sodium 139 mmol/L (137-145); Triglycerides 62 mg/dL (<150)
[2025-04-01 09:57] LABS: LDL Cholesterol Direct < 30 mg/dL
[2025-04-01 10:05] LABS: Creatinine Urine 59.4 mg/dL
[2025-04-01 10:06] LABS: Free T4 Free Thyroxine 1.18 ng/dL (0.78-2.19)
[2025-04-01 10:10] LABS: MALB Creatinine Ratio < 10.1 mg/g (0-30); Microalbumin Urine Random < 6.0 mg/L (0-16.7)
[2025-04-01 10:29] LABS: Hepatitis B Surface Antigen Negative (Negative)
[2025-04-01 10:35] LABS: HAV RESULT Negative (Negative); Hepatitis B Core IgM Result Negative (Negative)
[2025-04-01 10:47] LABS: Hepatitis C Virus Antibody Negative (Negative)
[2025-04-01 22:29] LABS: GGT 21 U/L (3-70)
== END 2025-04-01 08:45 | disposition home or self-care (01) ==
PROVIDERS: PCP Internal Medicine; Visit Provider Internal Medicine
DX: E78.5 Hyperlipidemia, unspecified (principal); E11.9 Type 2 diabetes mellitus without complications; R74.01 Elevation of levels of liver transaminase levels
CPT/HCPCS: 36415; 80053; 80061; 80074; 82043; 82977; 83036; 84439; 84443; 85025

== ENCOUNTER 2025-04-02 08:02 | Outpatient (CLI) | payer MEDICARE, SELFPAY ==
--- NOTE | ~2025-04-02 | US_ITS ---
EXAMINATION: US art doppler w press LE BI DATE: 04/02/2025 08:49 INDICATION: Peripheral arterial occlusive disease. TECHNIQUE: Segmental pressures and plethysmographic and Doppler waveforms of the brachial and lower e xtremity arteries were obtained. COMPARISON: None. FINDINGS: Right and left brachial artery pressures of 108 mm Hg and 110 mm Hg, respectively, are concordant (no rmal difference <= 30 mmHg). The right ankle-brachial index (KAVITHA) is 1.30 (normal >= 0.9-1). The right great toe-brachial index (T BI) is 0.83 (normal >= 0.6-0.8). Arterial waveforms are triphasic at the right common femoral and pop liteal arteries and biphasic at the right posterior tibial and dorsalis pedis arteries with brisk sys tolic upstrokes throughout. The left KAVITHA is 1.35. The left TBI is 0.83. Arterial waveforms are triphasic at the left common femor al and posterior tibial arteries, biphasic in the left popliteal artery and monophasic in the left do rsalis pedis artery with brisk systolic upstrokes throughout. IMPRESSION: 1. Normal KAVITHA's and TBI's bilaterally. No significant arterial occlusive disease. Reviewed, dictated and finalized at location A. IMPRESSION: 1. Normal KAVITHA's and TBI's bilaterally. No significant arterial occlusive diseas e.
--- OUTSIDE RECORDS SUMMARY | 2025-04-02 08:13 | XMS_ITS | Clinical Summary ---
Author Organization [facility] [address] Address [address] [place] [address] Care Team Providers Care Tax Services Professional Name Role Phone Phoebe Jaquez NP Primary Care Provider [phone] Social History Tobacco Use Types Packs/Day Years Used Date Smoking Tobacco: Never Assessed Sex and Gender Information Value Date Recorded Sex Assigned at Not on file Legal Sex Male 1:53 AM BUILDING MAINTENANCE SUPERINTENDENT Gender Identity Not on file Sexual Orientation [...] Diagnosis Comments EGFR Routine 10/17/2024 8:30 AM BUILDING MAINTENANCE SUPERINTENDENT Diabetes mellitus without complication (HCC) HEMOGLOBIN A1C Routine 10/17/2024 8:30 AM BUILDING MAINTENANCE SUPERINTENDENT Diabetes mellitus without complication (HCC) LIPID PANEL Routine 10/17/2024 8:30 AM BUILDING MAINTENANCE SUPERINTENDENT Diabetes mellitus without complication (HCC) ALBUMIN CREATININE RATIO, URINE Routine 10/17/2024 8:30 AM BUILDING MAINTENANCE SUPERINTENDENT Diabetes mellitus without complication (HCC) from Last 3 Months or Most Recently Relevant to Health Maintenance Results * eGFR (10/17/2024 8:30 AM BUILDING MAINTENANCE SUPERINTENDENT) eGFR 65 >=60 mL/min/1. 73 m2 Comment: [...] last reviewed 2021. Blood 10/17/2024 8:30 AM BUILDING MAINTENANCE SUPERINTENDENT 10/17/2024 8:17 PM BUILDING MAINTENANCE SUPERINTENDENT Jossie James MD LAB BLOOD ORDERABLES Final Result Performing Organization Address [facility] Co de Phone Number [facility] [id number] [facility] [place] [address] * Albumin Creatinine Ratio, Urine (10/17/2024 8:30 AM BUILDING MAINTENANCE SUPERINTENDENT) Albumin Ur <12.0 mg/L Comment: Interpretive Data No reference range established. Current interpretive data was last revised 2019. Creatinine Ur 107.9 mg/dL [facility] Comment: Interpretive Data No reference range established. Current interpretive data was last revised 2019. Albumin Creatinine Ratio, Ur <11 1 - 29 mg/g [facility] Urine (Urine, Clean Catch) 10/17/2024 8:30 AM BUILDING MAINTENANCE SUPERINTENDENT 10/17/2024 8:01 PM BUILDING MAINTENANCE SUPERINTENDENT Narrative [facility] - 10/17/2024 8:54 PM BUILDING MAINTENANCE SUPERINTENDENT FAX RESULTS [phone] JACINTO JAMES Jossie James MD LAB URINE ORDERABLES Final Result Performing Organization Address [facility] de Phone Number [facility] [address] [facility] [place] [address] * (ABNORMAL) Hemoglobin A1c (10/17/2024 8:30 AM BUILDING MAINTENANCE SUPERINTENDENT) Pathologist [facility] Hgb A1C 6.7(H) 4.0 - 5.6 % Estimated Average Glucose 146 mg/dL [facility] Comment: The ADA recommends reporting an estimated Average Glucose (eAG) with all Hemoglobin A1c results using the equation derived from a study of 507 normal and diabetic adults. Minority populations were underrepresented and children were not included. (Diabetes Care 31:3185-7963, 2008). The eAG is not equivalent to a fasting glucose. Blood Venous blood specimen / Unknown 10/17/2024 8:30 AM BUILDING MAINTENANCE SUPERINTENDENT 10/17/2024 8:01 PM BUILDING MAINTENANCE SUPERINTENDENT Narrative [facility] - 10/17/2024 8:35 PM BUILDING MAINTENANCE SUPERINTENDENT FAX RESULTS [phone] JACINTO JAMES us Jossie James MD LAB BLOOD ORDERABLES Final Result [facility] [id number] [facility] [place] [address] * Lipid panel (10/17/2024 8:30 AM BUILDING MAINTENANCE SUPERINTENDENT) Cholesterol 155 30 - 199 mg/dL Comment: [...] blood specimen / Unknown 10/17/2024 8:30 AM BUILDING MAINTENANCE SUPERINTENDENT 10/17/2024 8:01 PM BUILDING MAINTENANCE SUPERINTENDENT Narrative [facility] - 10/17/2024 8:41 PM BUILDING MAINTENANCE SUPERINTENDENT FAX RESULTS [phone] JACINTO JAMES us Jossie James MD LAB BLOOD ORDERABLES Final Result [facility] [id number] [facility] [place] [address] from Last 3 Months or Most Recently Relevant to Health Maintenance Insurance [facility] MEDICARE ADVANTAGE [employer] MEDICARE ADVANTAGE Care Teams Tax Services Professional Relationship Specialty Start Date End Date Phoebe Jaquez NP PCP - General Nurse Practitioner 11/24/19
--- OUTSIDE RECORDS SUMMARY | 2025-04-02 08:13 | XMS_ITS | Continuity of Care Document ---
Author Name [facility] Organization [facility] Care Team Providers Care Backside Grinder Name Role Phone [facility] Unavailable Unavailable Problems Combined list of problems from Department of Defense and [facility] Affairs facilities. It does not include entries that were removed or entered in error. Problem Status Onset Date Problem Type Date of Resolution Comments Source Anemia ([facility] [id number]) Active Condition [facility] Diabetes Mellitus Type 2 ([facility] 85385952) Active Condition [facility] GERD - Gastro-Esophageal Reflux Disease ([facility] 799447629) Active Condition [facility] Gout ([facility] 17254561) Active Condition [facility] History of gastric ulcer Active Condition [facility] Hyperlipidemia ([facility] 59678568) Active Condition [facility] Low Back Pain ([facility] 466099569) Active Condition [facility] Paroxysmal atrial fibrillation Active Condition [facility] Past history of procedure Active Condition March 18, 2020 Entered By: KEI VALLES Comment: 2005 appendectomyMay 2019 Entered By: KEI VALLES Comment: 09/2003 right knee patellar tendon surgery with hardware placementMay 2019 Entered By: KEI VALLES Comment: 2018 bilateral eye cataract surgery [facility] Vitamin D Deficiency ([facility] [id number]) Active Condition [facility] Diagnosis: ICD-10-CM E11.9 Type 2 diabetes mellitus without complications Active Diagnosis [facility] Diagnosis: ICD-10-CM Z74.1 Need for assistance with personal care Active Diagnosis [facility] Diagnosis: ICD-10-CM I48.0 Paroxysmal atrial fibrillation Active Diagnosis [facility] Diagnosis: ICD-10-CM Z65.9 Problem related to unspecified psychosocial circumstances Active Diagnosis [facility] Diagnosis: ICD-10-CM E44.0 Moderate protein-calorie malnutrition Active Diagnosis [facility] Diagnosis: ICD-10-CM Z13.9 Encounter for screening, unspecified Active Diagnosis [facility] Diagnosis: ICD-10-CM Z55.9 Problems related to education and literacy, unspecified Active Diagnosis [facility] Medications Combined list of outpatient medications [...] A DAY ORAL ACTIVE PACE,VICT OR 2019 [facility] ASPIRIN 81MG TAB,CHEWABL E CHEW AND SWALLOW ONE TABLET BY MOUTH ONCE A DAY ORAL ACTIVE PACE,VICT OR M 2019 [facility] DAPAGLIFLOZ IN 10MG TAB TAKE ONE TABLET BY MOUTH ONCE A DAY ORAL ACTIVE ME OLMAN TTISA 2022 [facility] DILTIAZEM (EQV-TIAZAC AB4) 120MG 24HR CAP TAKE 1 CAPSULE BY MOUTH EVERY MORNING BEFORE A MEAL ORAL ACTIVE ME OLMAN TTISA 2023 [facility] FERROUS SO4 325MG TAB TAKE ONE TABLET BY MOUTH ONCE A DAY ORAL ACTIVE PACE,VICT OR M 2019 [facility] FOLIC ACID 1MG TAB TAKE ONE TABLET BY MOUTH ONCE A DAY ORAL ACTIVE PACE,VICT OR M 2020 [facility] GLUCERNA SHAKE LIQUID STRAWBERRY TAKE 1 CANFUL BY MOUTH TWICE A DAY FOR NUTRITIO N/DIETAR Y SUPPLEME NTATION ([facility]) ORAL ACTIVE 10/18/2025 [id number] BLAKE OSPINA 2024 48 [facility] GLUCERNA SHAKE LIQUID STRAWBERRY TAKE 1 CANFUL BY MOUTH TWICE A DAY FOR NUTRITIO N/DIETAR Y SUPPLEME NTATION ([facility]) ORAL DISCONT INUED BY KAITLYN R 11/13/2024 [id number] BLAKE OSPINA 2023 48 [facility] GLUCERNA THERAPEUTIC NUTRITION SHAKE LIQUID STRAWBERRY TAKE 1 CANFUL BY MOUTH TWICE A DAY FOR NUTRITIO N/DIETAR Y SUPPLEME NTATION ([facility]) ORAL DISCONT INUED 02/25/2025 [id number] BLAKE OSPINA Guille 2023 48 [facility] GLUCERNA THERAPEUTIC NUTRITION SHAKE LIQUID STRAWBERRY TAKE 1 CANFUL BY MOUTH TWICE A DAY FOR NUTRITIO N/DIETAR Y SUPPLEME NTATION ([facility]) ORAL DISCONT INUED 02/25/2025 [id number] BLAKE OSPINA Guille 2023 48 [facility] GLUCOSAMINE CAP/TAB TAKE 2 CAPSULES BY MOUTH TWICE A DAY ORAL ACTIVE PACE,VICT OR 2019 [facility] METFORMIN HCL 1000MG TAB TAKE ONE TABLET BY MOUTH TWICE A DAY WITH MEALS ORAL ACTIVE PACE,VICT OR 2019 [facility] METOPROLOL SUCCINATE 100MG TAB,SA TAKE ONE-HALF TABLET BY MOUTH ONCE A DAY ORAL ACTIVE JANICE SOLORIO 2024 [facility] NON-FORMULA RY TAB TAKE GLUCOCIL 1 TABLET OTC BY MOUTH ONCE A DAY ORAL ACTIVE PACE,VICT OR 2019 [facility] OMEPRAZOLE 20MG CAP,EC TAKE 1 CAPSULE BY MOUTH EVERY MORNING BEFORE A MEAL ORAL ACTIVE PACE,VICT OR 2019 [facility] RANOLAZINE 500MG TAB,SA TAKE ONE TABLET BY MOUTH TWICE A DAY ORAL ACTIVE THURMAN,ME TTISA 2023 [facility] SIMVASTATIN TAB TAKE ONE TABLET BY MOUTH EVERY EVENING ORAL ACTIVE PACE,VICT OR 2019 [facility] Allergies, Adverse Reactions, Alerts Combined list of allergies from Department of Defense and Veterans Affairs facilities. It does not include entries that were removed or entered in error. Substance Category Reaction Severity Reaction type Status Date Reported Comments Source LISINOPRIL Propensity to adverse reactions to drug (finding) Cough active 0 [facility] Immunizations Combined list of available immunizations from the Department of Defense and Veterans Affairs facilities. Immunization Series Date Given Administered By Site Reaction Lot Number CVX Code Drug Commuter Pilot Status Comments Source INFLUENZA, HIGH-DOSE, TRIVALENT, PF 1 2023 135 complet ed HISTORICA L INFORMATI ON - FROM OTHER REGISTRY, [facility] COVID-19 (ACE), MRNA, LNP-S, PF, ANNIE-SUCROSE, 30 MCG/0.3 ML (AGES 12+ YEARS) 6 2023 309 complet ed HISTORICA L INFORMATI ON - FROM OTHER REGISTRY, [facility] COVID-19 (ACE), MRNA, LNP-S, PF, ANNIE-SUCROSE, 30 MCG/0.3 ML (AGES 12+ YEARS) 1 2023 309 complet ed HISTORICA L INFORMATI ON - FROM PATIENT'S WRITTEN RECORD, [facility] RSV, RECOMBINANT, PROTEIN SUBUNIT RSVPREF, ADJUVANT RECONSTITUTED , 0.5 ML, PF 1 2023 303 complet ed HISTORICA L INFORMATI ON - FROM OTHER REGISTRY, [facility] COVID-19 (ACE), MRNA, LNP-S, PF, ANNIE-SUCROSE, 30 MCG/0.3 ML (AGES 12+ YEARS) 5 2022 309 complet ed HISTORICA L INFORMATI ON - FROM OTHER REGISTRY, [facility] N INFLUENZA, UNSPECIFIED FORMULATION 2022 88 complet ed Completed Series, HISTORICA L INFORMATI ON - FROM PATIENT'S RECALL, [facility] N PNEUMOCOCCAL POLYSACCHARID E PPV23 2022 33 complet ed Completed Series, HISTORICA L INFORMATI ON - FROM PATIENT'S WRITTEN RECORD, [facility] N RESPIRATORY SYNCYTIAL VIRUS (RSV) VACCINE, UNSPECIFIED 2022 314 complet ed Completed Series, HISTORICA L INFORMATI ON - FROM PATIENT'S WRITTEN RECORD, [facility] COVID-19 (MODERNA), MRNA, LNP-S, BIVALENT BOOSTER, PF, 50 MCG/0.5 ML OR 25MCG/0.25 ML DOSE 1 2021 INDER MENA LEFT DELTO ID [id number] 229 complet ed ADMINISTE RED AT AL, [facility] PNEUMOCOCCAL CONJUGATE PCV20, POLYSACCHARID E [id number] CONJUGATE, ADJUVANT, PF 2021 INDER MENA LEFT DELTO ID [id number] 216 complet ed Completed Series, ADMINISTE RED AT [facility] INFLUENZA, HIGH-DOSE, QUADRIVALENT 5 2021 197 complet ed HISTORICA L INFORMATI ON - FROM OTHER REGISTRY, [facility] N INFLUENZA, UNSPECIFIED FORMULATION 2021 88 complet ed Completed Series, HISTORICA L INFORMATI ON - FROM PARENT'S WRITTEN RECORD, [facility] N COVID-19 (MODERNA), MRNA, LNP-S, PF, 100 MCG/0.5ML DOSE OR 50 MCG/0.25ML DOSE 4 2021 NONE 207 complet ed MOD; [id number]; 2 [facility] ZOSTER RECOMBINANT 2 2021 NONE 187 complet ed [facility] COVID-19 (MODERNA), MRNA, LNP-S, PF, 100 MCG/0.5 ML DOSE 3 2020 207 complet ed [facility] INFLUENZA, HIGH-DOSE, QUADRIVALENT 4 2020 197 complet ed HISTORICA L INFORMATI ON - FROM OTHER REGISTRY, [facility] INFLUENZA, UNSPECIFIED FORMULATION 2020 88 complet ed [facility] TD[facility] 2020 NONE 115 complet ed Completed Series, [facility] ZOSTER RECOMBINANT 1 2020 NONE 187 complet ed [facility] COVID-19 (MODERNA), MRNA, LNP-S, PF, 100 MCG/0.5 ML DOSE 2 2020 207 complet ed [facility] COVID-19 (MODERNA), MRNA, LNP-S, PF, 100 MCG/0.5 ML DOSE 1 2020 207 complet ed [facility] INFLUENZA, HIGH-DOSE, QUADRIVALENT 3 2019 197 complet ed HISTORICA L INFORMATI ON - FROM OTHER [facility] [place], [facility] INFLUENZA, UNSPECIFIED FORMULATION 2019 88 complet ed [facility] INFLUENZA, HIGH DOSE SEASONAL 2 2018 135 complet ed HISTORICA L INFORMATI ON - FROM OTHER REGISTRY, [facility] N PNEUMOCOCCAL CONJUGATE PCV 13 2018 133 complet ed chart review [facility] PNEUMOCOCCAL POLYSACCHARID E PPV23 2018 33 complet ed [facility] INFLUENZA, HIGH DOSE SEASONAL 1 2017 135 complet ed HISTORICA L INFORMATI ON - FROM OTHER REGISTRY, [facility] Results Combined list of recent chemistry, hematology [...] Specimen Type: BLOOD Comment: Test Performed by: [id number] Meter #: [id number] Ordering Provider: JANICE DIAMOND Report Released Date/Time: Feb 13, 2025 03:30 PM Reporting Lab: [facility] [address] [facility] [address] Performing Lab: [facility] [address] [facility] [address] [facility] CBC LEUKOCYTES [#/VOLUME] IN BLOOD BY AUTOMATED COUNT 6.1 10*3/u L 3.6 - 11.2 08/14 Specimen Type: BLOOD No comment entered. Ordering Provider: JANICE DIAMOND Report Released Date/Time: Aug 14, 2024 11:07 AM Reporting Lab: [facility] [address] [place] [phone] Performing Lab: [address] [address] [facility] CBC ERYTHROCYTES [#/VOLUME] IN BLOOD BY AUTOMATED COUNT 5.32 10*6/u L 4.10 - 5.70 08/14 Specimen Type: BLOOD No comment entered. Ordering Provider: JANICE DIAMOND Report Released Date/Time: Aug 14, 2024 11:07 AM Reporting Lab: [address] [address] Performing Lab: [address] [phone] [place] [address] CBC HEMOGLOBIN [MASS/VOLUME ] IN BLOOD 14.4 g/dL 13.1 - 16.8 08/14 Specimen Type: BLOOD No comment entered. Ordering Provider: JANICE DIAMOND Report Released Date/Time: Aug 14, 2024 11:07 AM Reporting Lab: [address] [address] Performing Lab: [address] [phone] [place] [address] CBC HEMATOCRIT [VOLUME FRACTION] OF BLOOD 46.7 38.2 - 48.4 08/14 Specimen Type: BLOOD No comment entered. Ordering Provider: JANICE DIMAOND Report Released Date/Time: Aug 14, 2024 11:07 AM Reporting Lab: [facility] [address] [place] [phone] Performing Lab: [address] [phone] [facility] CBC MCV [ENTITIC VOLUME] BY AUTOMATED COUNT 87.8 fL 80.0 - 100.0 08/14 Specimen Type: BLOOD No comment entered. Ordering Provider: JANICE DIAMOND Report Released Date/Time: Aug 14, 2024 11:07 AM Reporting Lab: [facility] [address] [place] [phone] Performing Lab: [facility] [address] [place] [phone] [facility] CBC MCH [ENTITIC MASS] BY AUTOMATED COUNT 27.1 pg 27.0 - 34.0 08/14 Specimen Type: BLOOD No comment entered. Ordering Provider: JANICE DIAMOND Report Released Date/Time: Aug 14, 2024 11:07 AM Reporting Lab: [address] [phone] Performing Lab: [address] [phone] [facility] CBC MCHC [MASS/VOLUME ] BY AUTOMATED COUNT 30.8 g/dL 33.0 - 36.0 08/14 L Specimen Type: BLOOD No comment entered. Ordering Provider: JANICE DIAMOND Report Released Date/Time: Aug 14, 2024 11:07 AM Reporting Lab: [address] [address] Performing Lab: [address] [phone] [facility] CBC PLATELETS [#/VOLUME] IN BLOOD BY AUTOMATED COUNT 221 10*3/u L 150 - 400 08/14 Specimen Type: BLOOD No comment entered. Ordering Provider: JANICE DIAMOND Report Released Date/Time: Aug 14, 2024 11:07 AM Reporting Lab: [facility] [address] [place] [phone] Performing Lab: [address] [address] [facility] CBC PLATELET MEAN VOLUME [ENTITIC VOLUME] IN BLOOD BY AUTOMATED COUNT 11.8 fL 7.5 - 11.2 08/14 H Specimen Type: BLOOD No comment entered. Ordering Provider: JANICE DIAMOND Report Released Date/Time: Aug 14, 2024 11:07 AM Reporting Lab: [address] [phone] Performing Lab: [facility] [address] [facility] [address] [facility] CBC ERYTHROCYTE DISTRIBUTION WIDTH [RATIO] BY AUTOMATED COUNT 15.2 11.8 - 15.1 08/14 H Specimen Type: BLOOD No comment entered. Ordering Provider: JANICE DIAMOND Report Released Date/Time: Aug 14, 2024 11:07 AM Reporting Lab: [facility] [address] [facility] [address] Performing Lab: [facility] [address] [facility] [address] [facility] CBC LYMPHOCYTES/ 100 LEUKOCYTES IN BLOOD BY AUTOMATED COUNT 23 08/14 Specimen Type: BLOOD No comment entered. Ordering Provider: JANICE DIAMOND Report Released Date/Time: Aug 14, 2024 11:07 AM Reporting Lab: [facility] [address] [facility] [address] Performing Lab: [facility] [address] [facility] [address] [facility] CBC MONOCYTES/10 0 LEUKOCYTES IN BLOOD BY AUTOMATED COUNT 11 08/14 Specimen Type: BLOOD No comment entered. Ordering Provider: JANICE DIAMOND Report Released Date/Time: Aug 14, 2024 11:07 AM Reporting Lab: [facility] [address] [facility] [address] Performing Lab: [facility] [address] [facility] [address] [facility] CBC NEUTROPHILS/ 100 LEUKOCYTES IN BLOOD BY AUTOMATED COUNT 61 08/14 Specimen Type: BLOOD No comment entered. Ordering Provider: JANICE DIAMOND Report Released Date/Time: Aug 14, 2024 11:07 AM Reporting Lab: [facility] [address] [facility] [address] Performing Lab: [facility] [address] [facility] [address] [facility] CBC EOSINOPHILS/ 100 LEUKOCYTES IN BLOOD BY AUTOMATED COUNT 4 08/14 Specimen Type: BLOOD No comment entered. Ordering Provider: JANICE DIAMOND Report Released Date/Time: Aug 14, 2024 11:07 AM Reporting Lab: [facility] [address] [facility] [address] Performing Lab: [facility] [address] [place] [phone] [facility] CBC BASOPHILS/10 0 LEUKOCYTES IN BLOOD BY AUTOMATED COUNT 1 08/14 Specimen Type: BLOOD No comment entered. Ordering Provider: JANICE DIAMOND Report Released Date/Time: Aug 14, 2024 11:07 AM Reporting Lab: [facility] [address] [place] [phone] Performing Lab: [address] [phone] [place] [address] CBC LYMPHOCYTES [#/VOLUME] IN BLOOD BY AUTOMATED COUNT 1.43 10*3/u L 0.77 - 4.50 08/14 Specimen Type: BLOOD No comment entered. Ordering Provider: JANICE DIAMOND Report Released Date/Time: Aug 14, 2024 11:07 AM Reporting Lab: [facility] [address] [place] [phone] Performing Lab: [facility] [address] [place] [phone] [facility] CBC MONOCYTES [#/VOLUME] IN BLOOD BY AUTOMATED COUNT 0.65 10*3/u L 0.19 - 0.80 08/14 Specimen Type: BLOOD No comment entered. Ordering Provider: JANICE DIAMOND Report Released Date/Time: Aug 14, 2024 11:07 AM Reporting Lab: [facility] [address] [place] [phone] Performing Lab: [facility] [address] [place] [phone] [facility] CBC NEUTROPHILS [#/VOLUME] IN BLOOD BY AUTOMATED COUNT 3.71 10*3/u L 2.10 - 8.00 08/14 Specimen Type: BLOOD No comment entered. Ordering Provider: JANICE DIAMOND Report Released Date/Time: Aug 14, 2024 11:07 AM Reporting Lab: [facility] [address] [place] [phone] Performing Lab: [address] [phone] [place] [address] CBC EOSINOPHILS [#/VOLUME] IN BLOOD BY AUTOMATED COUNT 0.25 10*3/u L 0.00 - 0.60 08/14 Specimen Type: BLOOD No comment entered. Ordering Provider: JANICE DIAMOND Report Released Date/Time: Aug 14, 2024 11:07 AM Reporting Lab: [address] [address] Performing Lab: [address] [phone] [place] [address] CBC BASOPHILS [#/VOLUME] IN BLOOD BY AUTOMATED COUNT 0.07 10*3/u L 0.00 - 0.20 08/14 Specimen Type: BLOOD No comment entered. Ordering Provider: JANICE DIAMOND Report Released Date/Time: Aug 14, 2024 11:07 AM Reporting Lab: [address] [address] Performing Lab: [address] [phone] [place] [address] COMPREHENSI VE METABOLIC PANEL CREATININE [MASS/VOLUME ] IN SERUM OR PLASMA 1.15 mg/dL 0.7 - 1.3 08/14 Specimen Type: PLASMA Comment: No hemolysis noted. Ordering Provider: JANICE DIAMOND Report Released Date/Time: Aug 14, 2024 11:07 AM Reporting Lab: [address] [address] Performing Lab: [address] [address] [facility] COMPREHENSI VE METABOLIC PANEL UREA NITROGEN [MASS/VOLUME ] IN SERUM OR PLASMA 19.7 mg/dL 9.0 - 25.0 08/14 Specimen Type: PLASMA Comment: No hemolysis noted. Ordering Provider: JANICE DIAMOND Report Released Date/Time: Aug 14, 2024 11:07 AM Reporting Lab: [address] [address] Performing Lab: [address] [phone] [place] [address] COMPREHENSI VE METABOLIC PANEL GLUCOSE [MASS/VOLUME ] IN SERUM OR PLASMA 123 mg/dL 72 - 99 08/14 H Specimen Type: PLASMA Comment: No hemolysis noted. Ordering Provider: JANICE DIAMOND Report Released Date/Time: Aug 14, 2024 11:07 AM Reporting Lab: [address] [address] Performing Lab: [address] [phone] [place] [address] COMPREHENSI VE METABOLIC PANEL SODIUM [MOLES/VOLUM E] IN SERUM OR PLASMA 139 meq/L 136 - 145 08/14 Specimen Type: PLASMA Comment: No hemolysis noted. Ordering Provider: JANICE DIAMOND Report Released Date/Time: Aug 14, 2024 11:07 AM Reporting Lab: [address] [phone] Performing Lab: [address] [phone] [place] [address] COMPREHENSI VE METABOLIC PANEL POTASSIUM [MOLES/VOLUM E] IN SERUM OR PLASMA 4.7 meq/L 3.5 - 5 08/14 Specimen Type: PLASMA Comment: No hemolysis noted. Ordering Provider: JANICE DIAMOND Report Released Date/Time: Aug 14, 2024 11:07 AM Reporting Lab: [address] [phone] Performing Lab: [address] [place] [address] [facility] COMPREHENSI VE METABOLIC PANEL CHLORIDE [MOLES/VOLUM E] IN SERUM OR PLASMA 102 meq/L 98 - 107 08/14 Specimen Type: PLASMA Comment: No hemolysis noted. Ordering Provider: JANICE DIAMOND Report Released Date/Time: Aug 14, 2024 11:07 AM Reporting Lab: [address] [phone] Performing Lab: [place] [address] [facility] [address] [facility] COMPREHENSI VE METABOLIC PANEL CARBON DIOXIDE, TOTAL [MOLES/VOLUM E] IN SERUM OR PLASMA 24 meq/L 22 - 31 08/14 Specimen Type: PLASMA Comment: No hemolysis noted. Ordering Provider: JANICE DIAMOND Report Released Date/Time: Aug 14, 2024 11:07 AM Reporting Lab: [address] [address] Performing Lab: [place] [address] [facility] [address] [facility] COMPREHENSI VE METABOLIC PANEL CALCIUM [MASS/VOLUME ] IN SERUM OR PLASMA 10.6 mg/dL 8.4 - 10.4 08/14 H Specimen Type: PLASMA Comment: No hemolysis noted. Ordering Provider: JANICE DIAMOND Report Released Date/Time: Aug 14, 2024 11:07 AM Reporting Lab: [facility] [address] [place] [phone] Performing Lab: [address] [address] [facility] COMPREHENSI VE METABOLIC PANEL PROTEIN [MASS/VOLUME ] IN SERUM OR PLASMA 7.7 g/dL 6 - 8.6 08/14 Specimen Type: PLASMA Comment: No hemolysis noted. Ordering Provider: JANICE DIAMOND Report Released Date/Time: Aug 14, 2024 11:07 AM Reporting Lab: [facility] [address] [place] [phone] Performing Lab: [facility] [address] [facility] [address] [facility] COMPREHENSI VE METABOLIC PANEL ALBUMIN [MASS/VOLUME ] IN SERUM OR PLASMA 4.5 g/dL 3.4 - 5 08/14 Specimen Type: PLASMA Comment: No hemolysis noted. Ordering Provider: JANICE DIAMOND Report Released Date/Time: Aug 14, 2024 11:07 AM Reporting Lab: [facility] [address] [place] [phone] Performing Lab: [address] [address] [facility] COMPREHENSI VE METABOLIC PANEL BILIRUBIN.TO CAREY [MASS/VOLUME ] IN SERUM OR PLASMA 0.6 mg/dL 0.2 - 1.2 08/14 Specimen Type: PLASMA Comment: No hemolysis noted. Ordering Provider: JANICE DIAMOND Report Released Date/Time: Aug 14, 2024 11:07 AM Reporting Lab: [address] [address] Performing Lab: [address] [address] [facility] COMPREHENSI VE METABOLIC PANEL ALKALINE PHOSPHATASE [ENZYMATIC ACTIVITY/VOL UME] IN SERUM OR PLASMA 58 U/L 40 - 150 08/14 Specimen Type: PLASMA Comment: No hemolysis noted. Ordering Provider: JANICE DIAMOND Report Released Date/Time: Aug 14, 2024 11:07 AM Reporting Lab: [facility] [address] [place] [phone] Performing Lab: [facility] [address] [place] [phone] [facility] COMPREHENSI VE METABOLIC PANEL ASPARTATE AMINOTRANSFE RASE [ENZYMATIC ACTIVITY/VOL UME] IN SERUM OR PLASMA 15 U/L 5 - 34 08/14 Specimen Type: PLASMA Comment: No hemolysis noted. Ordering Provider: JANICE DIAMOND Report Released Date/Time: Aug 14, 2024 11:07 AM Reporting Lab: [facility] [address] [facility] [address] Performing Lab: [facility] [address] [place] [phone] [place] [address] COMPREHENSI VE METABOLIC PANEL ALANINE AMINOTRANSFE RASE [ENZYMATIC ACTIVITY/VOL UME] IN SERUM OR PLASMA 16 U/L 8 - 40 08/14 Specimen Type: PLASMA Comment: No hemolysis noted. Ordering Provider: JANICE DIAMOND Report Released Date/Time: Aug 14, 2024 11:07 AM Reporting Lab: [address] [address] Performing Lab: [address] [phone] [place] [address] COMPREHENSI VE METABOLIC PANEL GLOMERULAR FILTRATION RATE/1.73 SQ M.PREDICTED [VOLUME RATE/AREA] IN SERUM, PLASMA OR BLOOD BY CREATININE-B ASED FORMULA (CKD-EPI 2020) 62.0 60 08/14 Specimen Type: PLASMA Comment: No hemolysis noted. Ordering Provider: JANICE DIAMOND Report Released Date/Time: Aug 14, 2024 11:07 AM Reporting Lab: [facility] [address] [place] [phone] Performing Lab: [address] [phone] [place] [address] HGA1C HEMOGLOBIN A1C/HEMOGLOB IN.TOTAL IN BLOOD 6.9 4.0 - 6.0 08/14 H Specimen Type: BLOOD No comment entered. Ordering Provider: JANICE DIAMOND Report Released Date/Time: Aug 14, 2024 11:07 AM Reporting Lab: [facility] [address] [place] [phone] Performing Lab: [facility] [address] [place] [phone] [facility]IPID PANEL ([facility]) CHOLESTEROL [MASS/VOLUME ] IN SERUM OR PLASMA 168 mg/dL 0 - 200 10/10 /2024 Specimen Type: PLASMA Comment: No hemolysis noted. Ordering Provider: JANICE DIAMOND Report Released Date/Time: Aug 14, 2024 11:07 AM Reporting Lab: [facility] [address] [facility] [phone] Performing Lab: [facility] [address] [place] [phone] [facility] LIPID PANEL (ST[facility]) TRIGLYCERIDE [MASS/VOLUME ] IN SERUM OR PLASMA 79 mg/dL 0 - 150 08/14 Specimen Type: PLASMA Comment: No hemolysis noted. Ordering Provider: JANICE DIAMOND Report Released Date/Time: Aug 14, 2024 11:07 AM Reporting Lab: [facility] [address] [place] [phone] Performing Lab: [address] [id number] [facility] LIPID PANEL ([facility]) CHOLESTEROL IN LDL [MASS/VOLUME ] IN SERUM OR PLASMA BY CALCULATION 80 mg/dL 08/14 Specimen Type: PLASMA Comment: No hemolysis noted. Ordering Provider: JANICE DIAMOND Report Released Date/Time: Aug 14, 2024 11:07 AM Reporting Lab: [facility] [address] [place] [phone] Performing Lab: [facility] [address] [place] [phone] [facility] LIPID PANEL (STL) CHOLESTEROL IN HDL [MASS/VOLUME ] IN SERUM OR PLASMA 72 mg/dL 40 08/14 Specimen Type: PLASMA Comment: No hemolysis noted. Ordering Provider: JANICE DIAMOND Report Released Date/Time: Aug 14, 2024 11:07 AM Reporting Lab: [facility] [address] [place] [phone] Performing Lab: [facility] [address] [place] [phone] [facility] TSH (MA-PB) THYROTROPIN [UNITS/VOLUM E] IN SERUM OR PLASMA 3.238 u[IU]/ mL 0.47 - 5 08/14 Specimen Type: SERUM No comment entered. Ordering Provider: JANICE DIAMOND Report Released Date/Time: Aug 14, 2024 11:07 AM Reporting Lab: [place] [address] Performing Lab: [address] VITAMIN D, 25-HYDROXY 25-HYDROXYVI TAMIN D3 [MASS/VOLUME ] IN SERUM OR PLASMA 47.5 ng/mL 30 - 96 08/14 Specimen Type: SERUM No comment entered. Ordering Provider: JANICE DIAMOND Report Released Date/Time: Aug 14, 2024 11:07 AM Reporting Lab: [place] [address] Performing Lab: [place] [address] [place] [address] GLUCOSE,BLO OD-poct (STL) GLUCOSE [MASS/VOLUME ] IN BLOOD BY AUTOMATED TEST STRIP 118 mg/dL 72 - 99 08/14 H Specimen Type: BLOOD Comment: Test Performed by: [id number] Meter #: [id number] Ordering Provider: JANICE DIAMOND Report Released Date/Time: Aug 14, 2024 03:30 PM Reporting Lab: [address] [address] Performing Lab: [address] [address] [facility] HGA1C HEMOGLOBIN A1C/HEMOGLOB IN.TOTAL IN BLOOD 7.0 4.0 - 6.0 05/23 H Specimen Type: BLOOD No comment entered. Ordering Provider: MET EVIE THURMAN Report Released Date/Time: May 23, 2024 10:03 AM Reporting Lab: [place] [address] Performing Lab: [address] [place] [address] [facility] VITAMIN D, 25-HYDROXY 25-HYDROXYVI TAMIN D3 [MASS/VOLUME ] IN SERUM OR PLASMA 41.5 ng/mL 30 - 96 05/23 Specimen Type: SERUM No comment entered. Ordering Provider: MET EVIE THURMAN Report Released Date/Time: May 23, 2024 09:39 AM Reporting Lab: [facility] [address] [place] [phone] Performing Lab: [address] [address] [facility] Vital Signs Combined list of inpatient and outpatient Vital Signs from Department of Defense and Veterans Affairs, ranging from 12 months to all on record, depending upon the facility. Vital Sign Value Date Comments Source SYSTOLIC BLOOD PRESSURE 113 02/13/2025 13:47:43 [facility] DIASTOLIC BLOOD PRESSURE 63 02/13/2025 [facility]47[facility] OXIMETRY 99 02/13/2025 13:47:43 [facility] WEIGHT 160 02/13/2025 13:47:43 [facility] BMI 21 kg/m2 02/13/2025 13:47:43 [facility] [place] PAIN 0 02/13/2025 13:47:43 [facility] [place] TEMPERATURE 97.7 02/13/2025 13:47:43 [facility] P[facility] 65 02/13/2025 13:47:43 [facility] [place] RESPIRATION 20 02/13/2025 13:47[facility]43 [facility] SYSTOLIC BLOOD PRESSURE 102 08/14/2024 10:41:43 [facility] DIASTOLIC BLOOD PRESSURE 60 08/14/2024 10:41:43 [facility] PULSE OXIMETRY 97 08/14/2024 10:41:43 [facility] WEIGHT 157 08/14/2024 10:41:43 [facility] BMI 21 kg/m2 08/14/2024 10:41:43 [facility] PAIN 0 08/14/2024 10:41:43 [facility] HEIGHT 73 08/14/2024 10:41:[facility] TEMPERATURE 97.5 08/14/2024 10:41:43 [facility] PULSE 70 08/14/2024 10:41:43 [facility] RESPIRATION 18 08/14/2024 10:41:43 [facility] WEIGHT 160 05/23/2024 09:12:28 . [facility] BMI 21 kg/m2 05/23/2024 09:12:28 [facility] Encounters Combined list of: 1) Encounters from Department of [facility] Affairs facilities going backup to the last 18 months, not all [place] inpatient encounters are included; 2) Encounters from the Department of [facility] facilities going backup to 280 months. Location Location Details Encounter Type Encounter Number Reason For Visit Attending Provider ADM Date DC Date Status Disposition Source [facility] Outpatient Encounter [id number] 11/22 [facility] Outpatient Encounter [id number] 12/07 [facility] Outpatient Encounter [id number] 12/07 [facility] Outpatient Encounter [id number] CEZAR MENA M 12/21 [facility] FUNDUS PHOTOGRAPH Y W/I&R [id number] Diagnos is: ICD-10- CM Z13.9 Encount er for screeni ng, unspeci fied EMMANUEL VINSON 12/25 [facility] Outpatient Encounter [id number] Diagnos is: ICD-10- CM Z55.9 Problem s related to educati on and literac y, unspeci fied AFSHAN VINSONDY 12/25 [facility] OFFICE O/P EST MOD 30 MIN [id number] Diagnos is: ICD-10- CM E11.9 Type 2 diabete s mellitu s without complic ations THURMAN,MET EVIE 12/25 [facility] IMG RTA DETC/MNTR DS PHY/QHP [id number] Diagnos is: ICD-10- CM Z13.9 Encount er for screeni ng, unspeci fipaco CHRISTOPHERMayi,KR ISSOFÍA JIMENESE 12/25 [facility] Outpatient Encounter [id number] ALISSONEMMANUEL 12/26 [facility] Outpatient Encounter [id number] 02/03 [facility] [place] [id number] Diagnos is: ICD-10- CM 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 [place] [facility] Outpatient Encounter [id number] 08/11 [facility] Outpatient Encounter [id number] CEZAR MENA M 08/13 [facility] OFFICE O/P EST MOD 30 MIN [id number] Diagnos is: ICD-10- CM I48.0 Paroxys mal atrial fibrill ation JANICE DIAMOND 08/14 [facility] Outpatient Encounter [id number] 08/21 [facility] Outpatient Encounter [id number] 10/15 [facility] Outpatient Encounter [id number] 10/15 [facility] Outpatient Encounter [id number] DICK DAS M 10/16 [facility] HC PRO PHONE CALL 21-30 MIN [id number] Diagnos is: ICD-10- CM Z65.9 Problem related to unspeci fied psychos ocial circums RONEY Coon L 10/20 [facility] HL BHV ASSMT/REAS SESSMENT [id number] Diagnos is: ICD-10- CM I48.0 Paroxys mal atrial fibrill ation JUD BRADSHAW L 10/27 [facility] Outpatient Encounter [id number] 10/27 [facility] Outpatient Encounter [id number] SHOBHA BISHOP Dinorah 10/30 [facility] PROGRAM INTAKE ASSESSMENT [id number] Diagnos is: ICD-10- CM Z74.1 Need for assista nce with WANDER Daugherty 11/27 [facility] Outpatient Encounter [id number] 11/27 [facility] Outpatient Encounter [id number] 12[facility] [id number] RONEY BLAIR 12/17 [facility] OFFICE O/P EST MOD 30 MIN [id number] Diagnos is: ICD-10- CM E11.9 Type 2 diabete s 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 Social History Type Response Date Comment Sourc e Tobacco smoking status NMIS VA-TOBACCO NEVER USED 08/13/2024 [facility] History of tobacco use AL-TOBACCO NEVER USED 05/04/2023 [facility] History of tobacco use VA-TOBACCO NEVER USED 03/20/2022 [facility] History of tobacco use AL-TOBACCO NEVER USED 03/11/2021 [facility] History of tobacco use AL-TOBACCO NEVER USED 03/04/2020 [facility]
--- OUTSIDE RECORDS SUMMARY | 2025-04-02 08:13 | XMS_ITS | Referral Summary ---
Author Organization [facility] [address] Address [address] [place] [address] Care Team Providers Care Appraisal Specialist Name Role Phone Phoebe Jaquez NP Primary Care Provider [phone] Social History Tobacco Use Types Packs/Day Years Used Date Smoking Tobacco: Never Assessed Sex and Gender Information Value Date Recorded Sex Assigned at Not on file Legal Sex Male 1:53 AM EXTRACTOR AND WRINGER OPERATOR Gender Identity Not on file Sexual Orientation Not on file Plan of Treatment Not on file Procedures Procedure Name Priority Date/Time Associated Diagnosis Comments EGFR Routine 10/17/2024 8:30 AM EXTRACTOR AND WRINGER OPERATOR Diabetes mellitus without complication (HCC) HEMOGLOBIN A1C Routine 10/17/2024 8:30 AM EXTRACTOR AND WRINGER OPERATOR Diabetes mellitus without complication (HCC) LIPID PANEL Routine 10/17/2024 8:30 AM EXTRACTOR AND WRINGER OPERATOR Diabetes mellitus without complication (HCC) ALBUMIN CREATININE RATIO, URINE Routine 10/17/2024 8:30 AM EXTRACTOR AND WRINGER OPERATOR Diabetes mellitus without complication (HCC) from Last 3 Months or Most Recently Relevant to Health Maintenance Results * eGFR (10/17/2024 8:30 AM EXTRACTOR AND WRINGER OPERATOR) eGFR 65 >=60 mL/min/1. 73 m2 Comment: [...] last reviewed 2021. Blood 10/17/2024 8:30 AM EXTRACTOR AND WRINGER OPERATOR 10/17/2024 8:17 PM EXTRACTOR AND WRINGER OPERATOR Jossie Velasquez MD LAB BLOOD ORDERABLES Final Result Performing Organization Address [facility] Co de Phone Number [place] [address] Department [email or web address] [address] * Albumin Creatinine Ratio, Urine (10/17/2024 8:30 AM EXTRACTOR AND WRINGER OPERATOR) Albumin Ur <12.0 mg/L Comment: Interpretive Data No reference range established. Current interpretive data was last revised 2019. Creatinine Ur 107.9 mg/dL CHRISTEN Comment: Interpretive Data No reference range established. Current interpretive data was last revised 2019. Albumin Creatinine Ratio, Ur <11 1 - 29 mg/g CHRISTEN Urine (Urine, Clean Catch) 10/17/2024 8:30 AM EXTRACTOR AND WRINGER OPERATOR 10/17/2024 8:01 PM EXTRACTOR AND WRINGER OPERATOR Narrative CHRISTEN - 10/17/2024 8:54 PM EXTRACTOR AND WRINGER OPERATOR FAX RESULTS [phone] JACINTO VELASQUEZ Jossie Velasquez MD LAB URINE ORDERABLES Final Result Performing Organization Address City/[facility] Co de Phone Number [place] [address] Department [email or web address] [address] * (ABNORMAL) Hemoglobin A1c (10/17/2024 8:30 AM EXTRACTOR AND WRINGER OPERATOR) Hgb A1C 6.7(H) 4.0 - 5.6 % Estimated Average Glucose 146 mg/dL CH[place]STEN [place] Comment: The ADA recommends reporting an estimated Average Glucose (eAG) with all Hemoglobin A1c results using the equation derived from a study of 507 normal and diabetic adults. Minority populations were underrepresented and children were not included. (Diabetes Care 31:4318-0456, 2008). The eAG is not equivalent to a fasting glucose. Blood Venous blood specimen / Unknown 10/17/2024 8:30 AM EXTRACTOR AND WRINGER OPERATOR 10/17/2024 8:01 PM EXTRACTOR AND WRINGER OPERATOR Narrative CHRISTEN [place]IPS - 10/17/2024 8:35 PM EXTRACTOR AND WRINGER OPERATOR FAX RESULTS [phone] JACINTO VELASQUEZ Jossie Velasquez MD LAB BLOOD ORDERABLES Final Result [place] [address] [place] [address] * Lipid panel (10/17/2024 8:30 AM EXTRACTOR AND WRINGER OPERATOR) Cholesterol 155 30 - 199 mg/dL Comment: [...] blood specimen / Unknown 10/17/2024 8:30 AM EXTRACTOR AND WRINGER OPERATOR 10/17/2024 8:01 PM EXTRACTOR AND WRINGER OPERATOR Narrative JESÚSNER CH - 10/17/2024 8:41 PM EXTRACTOR AND WRINGER OPERATOR FAX RESULTS [phone] JACINTO VELASQUEZ Jossie Velasquez MD LAB BLOOD ORDERABLES Final Result [place] [address] Department [place] [address] from Last 3 Months or Most Recently Relevant to Health Maintenance Insurance [facility] MEDICARE ADVANTAGE [facility] MEDICARE ADVANTAGE Care Teams Appraisal Specialist Relationship Specialty Start Date End Date Phoebe Jaquez NP PCP - General Nurse Practitioner 11/24/19
== END 2025-04-02 08:03 | disposition home or self-care (01) ==
LOC: CHSIMG 08:05
PROVIDERS: PCP Internal Medicine; Visit Provider Podiatrist Foot & Ankle Surgery
DX: I73.89 Other specified peripheral vascular diseases (principal)
CPT/HCPCS: 93923

== ENCOUNTER 2025-04-13 09:10 | Outpatient (CLI) | payer MEDICARE, SELFPAY ==
[2025-04-13 09:30] LABS: Basophils Absolute Auto 0.1 K/mm3 (0.0-0.1); Basophils Percent Auto 1.2 % (0.2-1.2); Eosinophils Absolute Auto 0.2 K/mm3 (0-0.3); Eosinophils Percent Auto 3.1 % (0-4.4); Hematocrit 46.7 % (42.0-52.0); Hemoglobin 14.6 g/dL (14.0-18.0); Immature Granulocyte Absolute 0.02 K/mm3 (0.00-0.031); Immature Granulocyte Percent A 0.3 % (0-0.5); Lymphocytes Absolute Auto 1.39 K/mm3 (0.9-3.2); Lymphocytes Percent Auto 21.7 % (18.3-44.2); Mean Corpuscular HGB Conc 31.3 g/dl (32-36); Mean Corpuscular Hemoglobin 27.5 pg (26-34); Mean Corpuscular Volume 88.1 fl (80-100); Mean Platelet Volume 10.9 fl (7.4-10.4); Monocytes Absolute Auto 0.6 K/mm3 (0.1-0.6); Monocytes Percent Auto 9.5 % (2.6-8.5); Neutrophils Absolute Auto 4.1 K/mm3 (1.3-6.7); Neutrophils Percent Auto 64.2 % (45.5-73.1); Platelet Count Result 184 k/mm3 (150-375); Red Cell Distribution Width 13.4 % (11.5-14.5); White Blood Count 6.4 K/mm3 (4.5-10.0)
--- OUTSIDE RECORDS SUMMARY | 2025-04-13 09:47 | XMS_ITS | Referral Summary ---
Author Organization [facility] [address] Address [address] [place] [address] Care Team Providers Care Columnist Name Role Phone Phoebe Jaquez NP Primary Care Provider [phone] Social History Tobacco Use Types Packs/Day Years Used Date Smoking Tobacco: Never Assessed Sex and Gender Information Value Date Recorded Sex Assigned at Not on file Legal Sex Male 1:53 AM CONE CLASSIFIER TENDER Gender Identity Not on file Sexual Orientation Not on file Plan of Treatment Not on file Procedures Procedure Name Priority Date/Time Associated Diagnosis Comments EGFR Routine 10/17/2024 8:30 AM CONE CLASSIFIER TENDER Diabetes mellitus without complication (HCC) HEMOGLOBIN A1C Routine 10/17/2024 8:30 AM CONE CLASSIFIER TENDER Diabetes mellitus without complication (HCC) LIPID PANEL Routine 10/17/2024 8:30 AM CONE CLASSIFIER TENDER Diabetes mellitus without complication (HCC) ALBUMIN CREATININE RATIO, URINE Routine 10/17/2024 8:30 AM CONE CLASSIFIER TENDER Diabetes mellitus without complication (HCC) from Last 3 Months or Most Recently Relevant to Health Maintenance Results * eGFR (10/17/2024 8:30 AM CONE CLASSIFIER TENDER) eGFR 65 >=60 mL/min/1. 73 m2 Comment: [...] last reviewed 2021. Blood 10/17/2024 8:30 AM CONE CLASSIFIER TENDER 10/17/2024 8:17 PM CONE CLASSIFIER TENDER Jossie Velasquez MD LAB BLOOD ORDERABLES Final Result Performing Organization Address [facility] Co de Phone Number [place]STEN [place] [phone] Department [place] [address] * Albumin Creatinine Ratio, Urine (10/17/2024 8:30 AM CONE CLASSIFIER TENDER) Albumin Ur <12.0 mg/L Comment: Interpretive Data No reference range established. Current interpretive data was last revised 2019. Creatinine Ur 107.9 mg/dL CHRISTEN Comment: Interpretive Data No reference range established. Current interpretive data was last revised 2019. Albumin Creatinine Ratio, Ur <11 1 - 29 mg/g CHRISTEN Urine (Urine, Clean Catch) 10/17/2024 8:30 AM CONE CLASSIFIER TENDER 10/17/2024 8:01 PM CONE CLASSIFIER TENDER Narrative CHRISTEN - 10/17/2024 8:54 PM CONE CLASSIFIER TENDER FAX RESULTS [phone] JACINTO VELASQUEZ Jossie Velasquez MD LAB URINE ORDERABLES Final Result Performing Organization Address City/[facility] Co de Phone Number [place]EN [place] [address] Department [place] [address] * (ABNORMAL) Hemoglobin A1c (10/17/2024 8:30 AM CONE CLASSIFIER TENDER) Hgb A1C 6.7(H) 4.0 - 5.6 % Estimated Average Glucose 146 mg/dL CHRISTEN PHILLIPS Comment: The ADA recommends reporting an estimated Average Glucose (eAG) with all Hemoglobin A1c results using the equation derived from a study of 507 normal and diabetic adults. Minority populations were underrepresented and children were not included. (Diabetes Care 31:8800-3476, 2008). The eAG is not equivalent to a fasting glucose. Blood Venous blood specimen / Unknown 10/17/2024 8:30 AM CONE CLASSIFIER TENDER 10/17/2024 8:01 PM CONE CLASSIFIER TENDER Narrative CHRISTEN PHILLIPS - 10/17/2024 8:35 PM CONE CLASSIFIER TENDER FAX RESULTS [phone] JACINTO VELASQUEZ Jossie Velasquez MD LAB BLOOD ORDERABLES Final Result [place]EN [place] [address] [place] [address] * Lipid panel (10/17/2024 8:30 AM CONE CLASSIFIER TENDER) Cholesterol 155 30 - 199 mg/dL Comment: [...] blood specimen / Unknown 10/17/2024 8:30 AM CONE CLASSIFIER TENDER 10/17/2024 8:01 PM CONE CLASSIFIER TENDER Narrative JESÚSNER CH - 10/17/2024 8:41 PM CONE CLASSIFIER TENDER FAX RESULTS [phone] JACINTO VELASQUEZ Jossie Velasquez MD LAB BLOOD ORDERABLES Final Result [place] [address] [place] [address] from Last 3 Months or Most Recently Relevant to Health Maintenance Insurance [facility] MEDICARE ADVANTAGE [facility] MEDICARE ADVANTAGE Care Teams Columnist Relationship Specialty Start Date End Date Phoebe Jaquez NP PCP - General Nurse Practitioner 11/24/19
--- OUTSIDE RECORDS SUMMARY | 2025-04-13 09:47 | XMS_ITS | Clinical Summary ---
Author Organization [facility] Address [address] [place] [address] Care Team Providers Care Utilization Review Nurse Name Role Phone Unavailable Primary Care Provider Unavailabl e Allergies Active Allergy Reactions Criticality Noted Date Comments Lisinopril Cough Low 03/18/2020 Medications allopurinoL (ZYLOPRIM) 300 mg tablet Take 300 mg by mouth daily. Active apixaban (Eliquis) 5 mg tablet Take 5 mg by mouth 2 times daily. Active atorvastatin (LIPITOR) 80 mg tablet Take 40 mg by mouth daily. Active clopidogreL (PLAVIX) 75 mg Tablet Take 75 mg by mouth daily. Active dapagliflozin propanediol (FARXIGA) 10 mg Tablet Take 10 mg by mouth daily. 3 Active ezetimibe (ZETIA) 10 mg tablet Take 10 mg by mouth daily. Active ferrous sulfate 325 mg (65 mg iron) Tablet, Delayed Release (E.C.) Take 325 mg by mouth daily. Active metoprolol succinate (TOPROL XL) 50 mg Extended Release 24 hour tablet Take 50 mg by mouth daily. 5 Active pantoprazole (PROTONIX) 40 mg Tablet, Delayed Release (E.C.) Take 40 mg by mouth 2 times daily. Active ranolazine ER (RANEXA) 500 mg Extended Release 12 hour tablet Take 500 mg by mouth 2 times daily. 3 Active sucralfate (CARAFATE) 1 gram tablet sucralfate 1 gram tablet Active Active Problems No known active problems Encounters Date Type Department Care Team Description 04/13/2025 8:30 AM CDT Office Visit [facility] - [place] [address] [place] [address] Chino Cabral MD Gallbladder neoplasm (Primary Dx); Gallbladder carcinoma (CMS/HCC) from Last 3 Months Family History Medical History Relation Name Comments Lung Cancer Brother 1 Heart Disease Brother 2 No Known Problems Child 1 No Known Problems Child 2 No Known Problems Child 3 No Known Problems Father Diabetes Mother No Known Problems Sister 1 Cancer Sister 2 Diabetes Sister 2 Diabetes Sister 3 Pancreatic Cancer Sister 3 Relation Name Status Comments Brother 1 Brother 2 Child 1 Alive Child 2 Alive Child 3 Alive Father Mother Sister 1 Sister 2 Sister 3 Alive Social History Tobacco Use Types Packs/Day Years Used Date Smoking Tobacco: Never Smokeless Tobacco: Never Alcohol Use Standard Drinks/Week Comments Never 0 (1 standard drink = 0.6 oz pur e alcohol) Sex and Gender Information Value Date Recorded Sex Assigned at Not on file Legal Sex Male 10:28 AM CDT Gender Identity Not on file Sexual Orientation Not on file Last Filed Vital Signs Vital Sign Reading Time Taken Comments Blood Pressure 124/80 04/13/2025 8:35 AM CDT Pulse 75 04/13/2025 8:35 AM CDT Temperature 36.2 C (97.1 F) 04/13/2025 8:35 AM CDT Respiratory Rate 15 04/13/2025 8:35 AM CDT Oxygen Saturation 97% 04/13/2025 8:35 AM CDT Inhaled Oxygen Concentration - - Weight 72.9 kg (160 lb 12.8 oz) 04/13/2025 8:35 AM CDT Height 182.9 cm (6') 04/13/2025 8:35 AM CDT Body Mass Index 21.81 04/13/2025 8:35 AM CDT Plan of Treatment Upcoming Encounters Date Type Department Care Team (Late st Contact Info) Description 04/27/2025 4:30 PM CDT Telephone Check Up [facility] - [place] [address] [facility] [facility] [address] [place] [address] Chino Cabral MD [address] [facility] [address] [place] [address] Health Maintenance Due Date Last Done Comments RSV VACCINE (60+ or ) (1 - 1-dose 75+ series) 2012 Medicare Ad[place]) Preventative Visit/Annual Wellness Visit 11/05/2024 04/09/2024, 04/09/2023 COVID-19 Vaccine (2023-2 5 season) 2025 07/21/2024, 12/07/2023, 08/14/2023, Additional history exists DTAP/TDAP/TD VACCINES (2 - T d or Tdap) 03/28/2031 03/28/2021 ZOSTER VACCINE Completed 03/21/2022, 03/21/2021 PNEUMOCOCCAL VACCINE 50+ YEARS Completed 0 02/20/2023, 09/25/2022, 09/15/2019, Additional history exists INFLUENZA VACCINE Completed 08/11/2024, , 08/16/2021, Additional history exists Insurance [address] [id number]
--- OUTSIDE RECORDS SUMMARY | 2025-04-13 09:47 | XMS_ITS | CONTINUITY OF CARE DOCUMENT ---
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; GIOVANNI to OM1 active Tanmay Jaeger MD Loss of appetite active Tanmay Jaeger MD Epistaxis active Tanmay Jaeger MD ENCOUNTERS Date Type Provider Location Encounter Diag nosis - In-person encounter Office Visit Tanmay Jaeger MD [facility] - In-person encounter Office Visit Tanmay Jaeger MD [facility] Loss of appetiteEpistaxis - In-person encounter Office Visit Tanmay Jaeger MD [facility] Cardiology examinationHx of NSTEMI s/p GIOVANNI to OM1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; GIOVANNI to OM1 - In-person encounter Office Visit Tyler Ricardo MD [facility] - In-person encounter Office Visit Tanmay Jaeger MD [facility] - In-person encounter Office Visit Tanmay Jaeger MD [facility] - In-person encounter Office Visit Tanmay Jaeger MD [facility] Atrial fib paroxysmal - In-person encounter Office Visit Tanmay Jaeger MD [facility] - In-person encounter Office Visit Tanmay Jaeger MD [facility] Chest pain - In-person encounter Office Visit Tanmay Jaeger MD [facility] Knee joint replaced by other meansAftercare long-term use, medications NEC - In-person encounter Office Visit Tanmay Jaeger MD [facility] ABNORMAL STRESS NUCLEAR SCAN 2014 - no CAD on cath 10/2015 - In-person encounter Office Visit Tanmay Jaeger MD [facility] Abnormal EKG - In-person encounter Office Visit TORRI FARR MD [facility] - In-person encounter Office Visit TORRI FARR MD [facility] - In-person encounter Office Visit TORRI FARR MD [facility] - In-person encounter Office Visit TORRI AFRR MD [facility] - In-person encounter Office Visit TORRI FARR MD [facility] - In-person encounter Office Visit TORRI FARR MD [facility] - In-person encounter Office Visit TORRI FARR MD [facility] - In-person encounter Office Visit TORRI FARR MD [facility] - In-person encounter Office Visit TORRI FARR MD [facility] - In-person encounter Office Visit TORRI FARR MD [facility] - In-person encounter Office Visit TORRI FARR MD [facility] - In-person encounter Office Visit TORRI FARR MD [facility] - In-person encounter Office Visit TORRI FARR MD [facility] - In-person encounter Office Visit TORRI FARR MD [facility] - In-person encounter Office Visit TORRI FARR MD [facility] - In-person encounter Office Visit TORRI FARR MD [facility] - In-person encounter Office Visit TORRI FRAR MD [facility] - In-person encounter Office Visit TORRI FARR MD [facility] - In-person encounter Office Visit TORRI FARR MD [facility] - In-person encounter Office Visit TORRI FARR MD [facility] - In-person encounter Office Visit TORRI FARR MD [facility] - In-person encounter Office Visit TORRI FARR MD [facility] - In-person encounter Office Visit TORRI FARR MD [facility] - In-person encounter Office Visit TORRI FARR MD [facility] - In-person encounter Office Visit TORRI FARR MD [facility] - In-person encounter Office Visit TORRI FARR MD [facility] - In-person encounter Office Visit TRORI FARR MD [facility] - In-person encounter Office Visit TORRI FARR MD [facility] - In-person encounter Office Visit TORRI FARR MD [facility] - In-person encounter Office Visit TORRI FARR MD [facility] - In-person encounter Office Visit TORRI FARR MD [facility] - In-person encounter Office Visit TORRI FARR MD [facility] - In-person encounter Office Visit TORRI FARR MD [facility] - In-person encounter Office Visit TORRI FARR MD [facility] - In-person encounter Office Visit TORRI FARR MD [facility] - In-person encounter Office Visit TORRI FARR MD [facility] - In-person encounter Office Visit TORRI FARR MD [facility] - In-person encounter Office Visit TORRI FARR MD [facility] - In-person encounter Office Visit TORRI FARR MD [facility] - In-person encounter Office Visit Benjamin Taveras [facility] - In-person encounter Office Visit Benjamin Taveras [facility] - In-person encounter Office Visit Benjamin Taveras [facility] - In-person encounter Office Visit TORRI FARR MD [facility] - In-person encounter Office Visit TORRI FARR MD [facility] - In-person encounter Office Visit Benjamin Taveras [facility] - In-person encounter Office Visit TORRI FARR MD [facility] - In-person encounter Office Visit Benjamin Taveras [facility] - In-person encounter Office Visit TORRI FARR MD [facility] - In-person encounter Office Visit TORRI FARR MD [facility] - In-person encounter Office Visit TORRI FARR MD [facility] - In-person encounter Office Visit TORRI FARR MD [facility] - In-person encounter Office Visit TORRI FARR MD [facility] - In-person encounter Office Visit TORRI FARR MD [facility] Diabetes mellitusHTN essential - In-person encounter Office Visit Benjamin Taveras [facility] - In-person encounter Office Visit Benjamin Taveras [facility] - In-person encounter Office Visit Benjamin Taveras [facility] - In-person encounter Office Visit Benjamin [place] [facility] - In-person encounter Office Visit Benjamin [place] [facility] - In-person encounter Office Visit Benjamin [place] [facility] - In-person encounter Office Visit Stevearpan Taveras [facility] - In-person encounter Office Visit Stveearpan Taveras [facility] - In-person encounter Office Visit Benjamin Taveras [facility] - In-person encounter Office Visit Benjamin [place] [facility] - In-person encounter Office Visit Benjamin Taveras [facility] - In-person encounter Office Visit Stevearpan Taveras [facility] - In-person encounter Office Visit Benjamin Taveras [facility] - In-person encounter Office Visit Benjamin Taveras [facility] - In-person encounter Office Visit Benjamin Taveras [facility] - In-person encounter Office Visit Benjamin [place] [facility] - In-person encounter Office Visit Stevearpan Taveras [facility] - In-person encounter Office Visit Stevearpan Taveras [facility] - In-person encounter Office Visit Stevearpan Taveras [facility] - In-person encounter Office Visit Stevearpan Taveras [facility] - In-person encounter Office Visit Stevearpan Taveras [facility] - In-person encounter Office Visit Stevearpan Taveras [facility] - In-person encounter Office Visit Stevearpan Taveras [facility] VITAL SIGNS Date Observation Value Provider [...] garay Main oxygen saturation, oximetry 99 % [facility] 76 /min [facility] respiratory rate E&M 12 /min [facility] weight E&M 154 [lb_av] [facility] height E&M 70 [in_i] Toan Main blood pressure, cuff size regular An pepe Main Body Mass Index (Ratio) 21.95 kg/m2 Ilene Jaeger MD blood pressure, diastolic 62 mm[Hg] Trish cantu Main blood pressure, systolic 119 mm[Hg] Latricia conce[facility]St[facility] saturation, oximetry 95 % [facility] pulse rate 67 /min [facility] respiratory rate E&M 12 /min [facility] weight E&M 153 [lb_av] [facility] height E&M 70 [in_i] Tona Main blood pressure, cuff size regular Trish cantu Main Body Mass Index (Ratio) 22.52 kg/m2 Reina Ricardo MD blood pressure, cuff size regular Ke rri Gruenenfeldcarmel blood pressure, diastolic 70 mm[Hg] Ke rri Gruenenfelder blood pressure, systolic 132 mm[Hg] Ker ri Linwooduenegibsonuniversity of vermont medical centercarmel oxygen saturation, oximetry 98 % Roxane Madelinnegibsonmethodist [facility] pulse rate 96 /min Roxane Josenfe [facility] weight E&M 157 [lb_av] Roxane Gruenenfe height E&M 70 [in_i] Roxane Gruenenfe Body Mass Index (Ratio) 22.81 kg/m2 Ilene Jaeger MD blood pressure, diastolic -1 mm[Hg] Rafaela nkLog blood pressure, systolic 121 mm[Hg] Lyric kLog blood pressure, diastolic 63 mm[Hg] Abhijeet rret blood pressure, systolic 121 mm[Hg] [facility] ret pulse rate 79 /min Gibson weight [...] Index (Ratio) 23.96 kg/m2 Fredi da Ventimiglia PLASTIC MOULD MAKER blood pressure, diastolic 71 mm[Hg] Li nkLogic blood pressure, systolic 130 mm[Hg] Lyric og blood pressure, cuff size regular Fa [facility] blood pressure, diastolic 71 mm[Hg] [facility] blood pressure, systolic 130 mm[Hg] [facility], oximetry 97 % [facility] respiratory rate E&M 16 /min Ebony Jaime [facility] pulse rate 95 /min [facility] weight E&M 167 [lb_av] [facility] height E&M 70 [in_i] [facility] Body Mass Index (Ratio) 23.82 kg/m2 Ilene [...] blood pressure, diastolic 90 mm[Hg] Ke rri Gruenenfmethodist [facility] blood pressure, systolic 160 mm[Hg] Stephon Mun[facility]methodist [facility] oxygen saturation, oximetry 97 % Roxane Mun[facility]methodist [facility] respiratory rate E&M 14 /min Roxane roamethodist [facility]xs[facility] hospital pulse rate 117 /min Roxane Kincaid [facility] weight E&M 175 [lb_av] Roxane Kincaid [facility] height E&M 70 [in_i] Roxane Kincaid [facility] blood pressure, diastolic 83 mm[Hg] [facility] [place] blood pressure, systolic 154 mm[Hg] Bryan yo [place] oxygen saturation, oximetry 100 % Judy [place] pulse rate 61 /min [facility] respiratory rate E&M 16 /min Catalino perdomo [place] Body Mass Index (Ratio) 27.26 kg/m2 Roscoe dial [place] height in centimeters E&M 177.[address] [facility] [place] height E&M 70 [in_i] Judy Delgadoaz n weight in kilograms E&M 86.18 kg [facility] [place] weight E&M 190 [lb_av] Judy [facility] blood pressure, cuff size large riccardo [place] ALLERGIES Allergy Name Onset Date Reaction Criticality [...] LinkLogic 0-149 cholesterol, serum 125 mg/dL LinkLogic [id number]/03/ 23 basophil count, absolute 0.1 x10E3/uL LinkLogic [...] Not Estab. platelet count 176 X10E3/UL LinkLogic [phone]/03/ 23 red blood cell distribution width 14.4 [...] LinkLogic 3.5-5.2 sodium, serum 144 mmol/L LinkLogic [phone]/03/ 23 urea nitrogen/creatinine ratio, serum 15 LinkLogic [...] 130.0 alanine aminotransferase (SGPT), serum 29.0 1/L [facility] 0.[facility] - 41.0 protein, total, serum 7.1 g/dL LinkLogic 6.6 - 8.7 bilirubin, serum, total 0.4 mg/dL LinkLog 0.0 - 1.2 urea nitrogen, blood 14.0 mg/dL [facility] 8.0 - 23.0 blood glucose, random 138.0 mg/dL [facility] 74.0 - 99.0 High red blood cell distribution width, size density 42.6 fL [facility] - immature granulocytes, percentage of total cells, blood 0.0 % [facility] - nucleated red blood cells as percent of blood leukocytes 0.0 % [facility] - red blood cell (erythrocyte) count, per high power field 0.0 10*3/UL [facility] - eosinophils as percent of blood leukocytes 3.6 % [facility] - neutrophils as percent of blood leukocytes 58.1 % [facility] - Absolute Neutrophils 3.2 CELLS/UL LinkLogic 1.5 - 7.8 basophils as percent of blood leukocytes 1.3 % [facility] - Absolute Basophils 0.1 CELLS/UL [facility]Log[facility] 0.0 - 0.2 monocytes as percent of blood leukocytes 8.8 % [facility] - Absolute Monocytes 0.5 CELLS/UL [facility] 0.2 - 1.0 lymphocytes as percent of blood leukocytes 28.2 % [facility] - Absolute Lymphocytes 1.6 CELLS/UL [facility] 0.9 - 3.9 mean platelet volume 12.4 (?) [facility] - platelet count 172.0 THOUSAND/ UL LinkLogic 100.0 - 400.0 mean corpuscular hemoglobin concentration, RBC 30.4 G/DL [facility] 31.0 - 38.0 Low mean corpuscular hemoglobin, [...] 5.6 High urea nitrogen/creatinine ratio, serum 17.5 [facility] - Estimated Glomerular Filtration Rate (calc) 99.1 (?) LinkLogic 59.0 - hemoglobin A1C, blood, as % of total hemoglobin 6.7 % [facility] 4.0 - 6.0 High red blood cell distribution width, size density 43.2 fL [facility] - immature granulocytes, percentage of total cells, blood 0.2 % [facility]Log[facility] - nucleated red blood cells as percent of blood leukocytes 0.0 % [facility] - red blood cell (erythrocyte) count, per [...] LinkLogic 0-149 cholesterol, serum 129 mg/dL LinkLogic [phone]/05/ 24 alanine aminotransferase (SGPT), serum 31 1/L [...] LinkLogic 3.5-5.2 sodium, serum 142 mmol/L LinkLogic [phone]/05/ 24 urea nitrogen/creatinine ratio, serum 10 LinkLogic [...] LinkLogic 40-74 platelet count 162 X10E3/UL [facility] 030-097 0852/05/ 24 red blood cell distribution width 13.9 [...] LinkLogic (4.0-10.5) prothrombin time (patient) 11.1 s [facility] international normalized ratio (INR) 1.1 [facility] estimated glomerular filtration rate >60 [facility] anion gap, serum 12.8 [facility] calcium, serum 9.2 mg/dL [facility] blood glucose, fasting 145 mg/dL [facility] creatinine, serum 0.95 mg/dL [facility] urea nitrogen, blood 8.1 mg/dL [facility] carbon dioxide, serum, total 30 mmol/L [facility] Nitin chloride, serum 99 mmol/L [facility] potassium, serum 3.8 mmol/L [facility] sodium, serum 138 mmol/L [facility] platelet count 285 10*3/uL [facility] red blood cell distribution width 12.8 % [facility] mean corpuscular hemoglobin concentration, RBC 32.7 g/dL [facility] mean corpuscular hemoglobin, RBC 27.3 pg [facility] mean corpuscular volume, RBC 83.5 fL [facility] hematocrit, blood 39.5 % [facility] hemoglobin, blood 12.9 g/dL [facility] erythrocyte (RBC) count 4.73 10*6/mm3 [facility] monocytes as percent of blood leukocytes 9.6 % [facility] lymphocytes as percent of blood leukocytes 15.0 % [facility] leukocyte count, blood 9.9 10*3/mm3 [facility] lipoprotein, beta, serum, point, quantitative, calculated 99 [...] 1 tablet by mouth once a day Nirlai Argueta atorvastatin 80 mg tablet active Take [...] by mouth once a day [facility] allopurinol 300 mg tablet active Take 1 tablet by mouth once a day [facility] Farxiga 5 mg tablet active Take 2 tablet by mouth once a day Tanmay Jaeger MD tadalafil 20 mg tablet completed TAKE 1 TABLET BY MOUTH ONCE DAILY NEEDED - [facility] ferrous sulfate 325 mg (65 mg iron) [...] tablet once a day - [facility] ASPIRIN 81 MG ORAL TABLET completed 1 [...] history of marijuana use no Ginny Ventimiglia PLASTIC MOULD MAKER drug use no Ginny Ventimig radha PLASTIC MOULD MAKER alcohol use no Ginny Ventimig radha PLASTIC MOULD MAKER smoking status Never smoker Ebony Lopez social history reviewed E&M revi ewed - no changes required Tanmay Jaeger MD social history E&M Smoking Histo ry: P atient has never smoked. Tanmay Jaeger MD social history reviewed E&M revi ewed - no changes required Heidy Smithad MACHINE BANDER AND CELLOPHANER HELPER social history E&M S moking History: Eulalio carrillo has never smoked. Heidy Raderchristina MACHINE BANDER AND CELLOPHANER HELPER smoking status Never smoker Heidy Bryant i MACHINE BANDER AND CELLOPHANER HELPER social history E&M S moking History: Eulalio [...] Payer name Policy type / Coverage type [facility] red democrat ID AARP MEDICARE ADVANTAGE ([facility] COMPLETE PPO) Other [id number] ADVANCE DIRECTIVES Name Date DISCUSSED - NO DECISION MADE TREATMENT PLAN Date Name Performer [id number],CC linically compensated. Will arrange for repeat echo Tanmay Jaeger MD [id number],Eulalio Han gerardo is scheduled for an EGD [...] mouth twice a day Tanmay Jaeger MD [id number],C,M ost recent regadenoson stress test was negative for ischemia (01/2023). Tanmay Jaeger MD [id number],C,B lood pressure control is satisfactory. BP today: 131/62 P rior BP: 126/66 (09/12/2023) His updated medication list for this problem includes: Diltiazem Hcl 120 Mg Capsule,extended Release 12 Hr (Diltiazem hcl) ..... Take 1 capsule by mouth once a day Tanmay Jaeger MD [id number],C, P atient is scheduled for an EGD [...] mouth twice a day Tanmay Jaeger MD [id number],C, M ost recent regadenoson stress test was negative for ischemia (01/2023). Heidy Christian NP [id number],C, C ontinues on Iron/Folic acid supplements Heidy Christian NP [id number],C, M anaged per PCP H is updated medication list for this problem includes: Farxiga 5 Mg Tablet (Dapagliflozin propanediol) ..... Take 1/2 tablet by mouth once a day Metformin 500 Mg Tablet (Metformin) ..... Take one and half in the am and one in the pm Heidy Christian NP [id number],C, B P well controlled B P today: 126/66 P rior BP: 128/67 (08/08/2023) Heidy Raderchristina MACHINE BANDER AND CELLOPHANER HELPER [id number],C, C linically compensated. His recent echocardiogram demonstrated normal LVSF, EF 55%. Heidy Smithad RIVERS [id number],C, C ontinues on iron supplement. Tanmay Jaeger MD [id number],C, C ontinues on metformin. Last A1c 7.1-2% %. Will reduce farxiga to 5mg daily due to more frequent urination. Advised meticulous cleaning of groin and peroneal region after urinating on a daily basis. Tanmay Jaeger MD [id number],Guille, B lood pressure control is satisfactory. Does not currently take any anti-hypertensive agents. Reports systolic BP was 100 at your office recently. Tanmay Jaeger MD [id number],C, W ill reduce farxiga to 5mg daily since he complains of frequent urination. Tanmay Jaeger MD [id number],C, C hest pain free. Most recent regadenoson stress test was negative for ischemia. The patient has been reassured. Tanmay Jaeger MD [id number],C C linically compensated. His recent echocardiogram demonstrated normal LVSF, EF 55%. Tanmay Jaeger MD [id number],C, C hest pain free. Recent regadenoson stress test was negative for ischemia. The patient has been reassured. Tanmay Jaeger MD [id number],C, C ontinues on metformin. Last A1c 6.9%. Dr. Conti recently prescribed farxiga 10mg daily. Advised meticulous cleaning of groin and peroneal region after urinating on a daily basis. Tanmay Jaeger MD [id number],S, C linically compensated. His recent echocardiogram demonstrated nomral LVSF, EF 55%. Tanmay Jaeger MD [id number],W, B P is elevated today. Advised routine home monitoring and dietary sodium restriction. We aim for a BP of 130/80 or lower. Tanmay Jaeger MD [id number],C, C linically compensated. He would certainly benefit from an echo to evaluate his LVF and wall motion. Tanmay Jaeger MD [id number],W, A s he has new changes on his EKG compared to his last EKG, he would certainly benefit from a regadenoson stress test and an echocardiogram. Tanmay Jaeger MD [id number],C, C ontinues on metformin. Last A1c 6.9%. Tanmay Jaeger MD [id number],C, B P is elevated today but normally [...] 6 nonths N eeds blood results from [facility] and US result Tanmay Jaeger MD Cardiology:Continue [...] culprit vessele was stented [facility] see him in a month if [...] MD Cardiology: r emains on PO iron Tanmay Jaeger MD Cardiology:Managed p er pt H [...] the am and one in the pm [facility] Cardiology:remains on PO iron Am [facility] Cardiology:EF normal ized on last echo earlier this year c ontinue present medication regimen H is updated medication list for this problem includes: Diltiazem Hcl 120 Mg Capsule,extended Release 12 Hr (Diltiazem hcl) ..... Take 1 capsule by mouth once a day Ranolazine 500 Mg Tablet Extended Release 12 Hr (Ranolazine) ..... Take 1 tablet by mouth twice a day [facility] Cardiology:BP at a l 130/71 c ontinue present medication regimen H is updated medication list for this problem includes: Diltiazem Hcl 120 Mg Capsule,extended Release 12 Hr (Diltiazem hcl) ..... Take 1 capsule by mouth once a day [facility] Cardiology:patient i s in NSR today R [...] 1 tablet by mouth twice a day [facility] Cardiology:Clinicall y compensated. Will arrange for repeat [...] P rior BP: 128/67 (08/08/2023) Heidy Christian MACHINE BANDER AND CELLOPHANER HELPER Cardiology: C linically compensated. His recent echocardiogram [...] ischemia. The patient has been reassured. Tanmay Jeager MD Cardiology: C linically compensated. His recent [...]
--- OUTSIDE RECORDS SUMMARY | 2025-04-13 09:47 | XMS_ITS | Encounter Summary ---
Author Organization [facility] MARTHA Avery [facility] Address [address] [place] [address] Care Team Providers Care Drilling Assistant Name Role Phone Unavailable Primary Care Provider Unavailabl e Reason for Referral * MRI (Routine) - Closed Specialty Diagnoses / Procedures Referred By Contac t Referred To Contact Diagnoses Gallbladder neoplasm Procedures MRI ABDOMEN W WO CONTRAST Chino Cabral MD [address] [place] [address] Phone: tel: fax: [place] [address] Referral ID Status Reason Start Date Expiration Date V isits Requested Visits Authorized [id number] Closed CRS to Schedule 04/13/2025 05/14/2026 1 1 Encounter Details Date Type Department Care Team (Late st Contact Info) Description 04/13/2025 8:30 AM CDT Office Visit [facility] [address] [facility] [address] [place] [address] Chino Cabral MD [address] [place] [address] Gallbladder neoplasm (Primary Dx); Gallbladder carcinoma (CMS/HCC) Social History Tobacco Use Types Packs/Day Years Used Date Smoking Tobacco: Never Smokeless Tobacco: Never Alcohol Use Standard Drinks/Week Comments Never 0 (1 standard drink = 0.6 oz pur e alcohol) Sex and Gender Information Value Date Recorded Sex Assigned at Not on file Legal Sex Male 10:28 AM CDT Gender Identity Not on file Sexual Orientation Not on file documented as of this encounter Last Filed Vital Signs Vital Sign Reading [...] Mass Index 21.81 04/13/2025 8:35 AM CDT documented in this encounter Plan of Treatment Upcoming Encounters Date Type Department Care Team (Late st Contact Info) Description 04/27/2025 4:30 PM CDT Telephone Check Up [facility] [address] [facility] [address] [place] [address] Chino Cabral MD [address] [facility] [address] [place] [address] Scheduled Orders Name Type Priority Associated Diagnoses Orde r Schedule CBC WITH DIFFERENTIAL Lab Stat Gallbladder neoplasm Expected: 04/13/2025, Expires: 04/13/2026 COMPREHENSIVE METABOLIC PANEL Lab Stat Gallbladder neoplasm Expected: 04/13/2025, Expires: 04/13/2026 CANCER ANTIGEN 19-9 Lab Routine Gallbladder carcinoma (CMS/HCC) Expected: 04/13/2025, Expires: 04/13/2026 MRI ABDOMEN W WO CONTRAST Imaging Routine Gallbladder neoplasm Expected: 04/14/2025, Expires: 04/13/2026 documented as of this encounter Visit Diagnoses Diagnosis Gallbladder neoplasm- Primary Neoplasm of unspecified nature of digestive system 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
--- OUTSIDE RECORDS SUMMARY | 2025-04-13 09:47 | XMS_ITS ---
Author Name [facility] Address [address] [place] [address] Care Team Providers Care Car Parker Name Role Phone KALEE, ANNIE Primary Care [...] PART B Jan 04, 2004 PART B [id number] [phone] ESAZULEMAVILMA OCHOA PATIENT MEDICARE (WNR) MEDICARE (M) PART A Aug 05, 2002 PART A [id number] VILMA LEWIS OCHOA PATIENT Selected Encounter This section includes the information on record at [place] for the Encounter. Date/Time Encounter Type Encounter Description Reason Provider Source Feb 13, 2025 02:00 PM OFFICE O/P EST MOD 30 MIN PRIMARY CARE/MEDICINE ICD-10-CM E11.9 Type 2 diabetes mellitus without complications LIZET DIAMOND Encounter Template Text not used by [place] Assessments - Encounter Diagnoses This section includes the primary and secondary diagnoses documented for the Encounter. Date/Time Primary/Secondary Diagnosis Diagnosis Name Provider Source Feb 13, 2025 03:11 PM PRIMARY Type 2 diabetes mellitus without complications PAOLO DIAMOND [facility] Feb 13, 2025 03:11 PM SECONDARY Anemia, unspecified PAOLO DIAMOND [facility] Feb 13, 2025 03:11 PM SECONDARY Gastro-esophageal reflux disease without esophagitis PAOLO DIAMOND [facility] Feb 13, 2025 03:11 PM SECONDARY Gout, unspecified PAOLO DIAMOND [facility] Feb 13, 2025 03:11 PM SECONDARY Hyperlipidemia, unspecified PAOLO DIAMOND [facility] Feb 13, 2025 03:11 PM SECONDARY Paroxysmal atrial fibrillation PAOLO DIAMOND [facility] Feb 13, 2025 03:11 PM SECONDARY Vitamin D deficiency, unspecified PAOLO DIAMOND [facility] Lab Results: +/- 30 days of the encounter This section includes the Chemistry and Hematology Lab Results on record with [place] for the patient. Radiology Reports and Pathology Reports are provided separately, in subsequent sections. Lab Results This section contains the Chemistry/Hematology Results that were resulted 30 days before or 30 daysafter the date of the Encounter. Date/Time Source Result Type Result - Unit Interpretation Reference Range Specimen Type Comment Feb 13, 2025 01:50 PM [facility] GLUCOSE,BLOOD-poct (STL) BLOOD Specimen Type: BLOOD Comment: Test Performed by: [id number] Meter #: [id number] Ordering Provider: JANICE DIAMOND Report Released Date/Time: Feb 13, 2025 03:30 PM Reporting Lab: [facility] [address] [facility] [address] Performing Lab: [place] [address] [facility] [address] GLUCOSE,BLOOD-poct (STL) 270 mg/dL H 72-99 Vital Signs: All taken on the encounter date This section contains inpatient and outpatient Vital Signs collected on the date of the Encounter. Date/Time Temperature Pulse Blood Pressure Respiratory Rate SP02 Pain Height Weight Body Mass Index Source Feb 13, 2025 01:47 PM 97.7 65 113/63 20 99 0 160 21 [facility] Social History: Smoking Status (Most current) and Tobacco Use (All prior to encounter date) This section includes the most current, and the historical, smoking and tobacco- related health factors from the [place] facility where the Encounter took place. Current Smoking Status This section includes the most current smoking, or tobacco-related health factor, from the [place] facility where the Encounter took place. Date/Time Current Smoking Status Comment Facil ity Mar 04, 2020 03:41 PM VA-TOBACCO NEVER USED [facility] Encounter Notes: All associated encounter notes This section contains the clinical notes associated to the Encounter. Date/Time Encounter Note(s) Provider Source Feb 13, 2025 02:13 PM PRIMARY CARE NOTE: LOCAL TITLE: PRIMARY CARE PROVIDER ESTABLISHED VISIT [facility] STANDARD TITLE: PRIMARY CARE NOTE DATE OF NOTE: FEB 13, 2025@14:13 ENTRY DATE: FEB 13, 2025@14:13:51 AUTHOR: JANICE DIAMOND EXP COSIGNER: URGENCY: STATUS: COMPLETED REASON FOR VISIT/CHIEF COMPLAINT: Routine HPI: [facility] presents today for routine visit for chronic conditions. Following with Dr Velasquez- Non [place] PCP q 3-4 months, Dr Justyn Mckeon- [facility] cardiology Diabetes Mellitus Type 2: Taking Farxiga. Metformin was discontinued by his nutrition services assistant and he is unsure why. Denies polyuria, polydipsia or polyphagia. Last A1c was 7. Had foot exam completed in May by non [place] podiatry. Reports a normal diabetic eye exam [...] On daily iron supplement. malnutrition: Following with radiotelegraphist and supplementing diet with Glucerna. Has gained a few lbs and feeling good about this. SOURCE(S) OF HISTORY: Patient PAST MEDICAL HISTORY: 1) Past history of procedure comment: 2005 appendectomy comment: 09/2003 right knee patellar tendon surgery with hardware placemen comment: 2018 bilateral eye cataract surgery 2) Diabetes Mellitus Type 2 ([facility] [id number]) 3) Hyperlipidemia ([facility] [id number]) 4) History of gastric ulcer 5) Gout ([facility] [id number]) 6) GERD - Gastro-Esophageal Reflux Disease ([facility] [id number]) 7) Vitamin D Deficiency ([facility] [id number]) 8) Low Back Pain ([facility] [id number]) 9) Anemia ([facility] [id number]) 10) Paroxysmal atrial fibrillation ALLERGIES: LISINOPRIL ALLERGY [...] medication list with the patient and/or 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 Handwritten corrections, additions and/or deletions were made [...] swelling/stiffness/pain, back pain, neck pain and edema /ARMATURE BANDER: Denies dysuria, flank pain, frequency, hesitancy, urgency, [...] <C> COVID-19 (MODERNA), MRNA, LNP-S,* 3 08/29/2021 [facility]'s COVID-19 (MODERNA), MRNA, LNP-S,* 2 [...] to keep all scheduled appointments and contact pit slagman for any additional problems. /cristiane/ UNA MARS NURSE PRACTITIONER Signed: 02/13/2025 15:11 JANICE DIAMOND [facility] Feb 13, 2025 01:52 PM NURSING NOTE: [...] INVENTORY - MAP: 09/20/2021 Personal Health Plan [place], [place], Purpose (MAP) I like to garden What matters most to you in your life right now? -- Vancleve's Response: GOOD HEALTH Would you like to discuss any personal problem, family problem, alcohol use, drug use, or a mental or emotional illness? No My [facility] ([facility]), please select appointment type: Face to face: Yes-Do you have an upgraded (Premium) account which gives you the added benefit of Secure Messaging with your Primary Care Provider and refilling your prescriptions online? Yes- Done Contact provided Primary Care phone number and encouraged to call if any questions or concerns. Review that after hours nurse line [phone] and emergency room are available 28/05 for [...] Not worried about housing near future The [facility] reports the following: Within the past 12 [...] due to responses to other questions. 5. [place] numb or detached from people, activities, or your surroundings? Response not required due to responses to other questions. 6. [place] guilty or unable to stop blaming yourself or others for the event(s) or any problems the event(s) may have caused? Response not required due to responses to other questions. /cristiane/ TERRANCE SALCEDO LICENSED PRACTICAL NURSE Signed: 02/13/2025 14:01 TERRANCE SALCEDO [facility]
--- OUTSIDE RECORDS SUMMARY | 2025-04-13 09:47 | XMS_ITS | Clinical Summary ---
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 MACHINE OPERATOR Gender Identity Not on file Sexual [...] Diagnosis Comments EGFR Routine 10/17/2024 8:30 AM PILL MACHINE OPERATOR Diabetes mellitus without complication (HCC) HEMOGLOBIN A1C Routine 10/17/2024 8:30 AM PILL MACHINE OPERATOR Diabetes mellitus without complication (HCC) LIPID PANEL Routine 10/17/2024 8:30 AM PILL MACHINE OPERATOR Diabetes mellitus without complication (HCC) ALBUMIN CREATININE RATIO, URINE Routine 10/17/2024 8:30 AM PILL MACHINE OPERATOR Diabetes mellitus without complication (HCC) from Last 3 Months or Most Recently Relevant to Health Maintenance Results * eGFR (10/17/2024 8:30 AM PILL MACHINE OPERATOR) eGFR 65 >=60 mL/min/1. 73 m2 [...] last reviewed 2021. Blood 10/17/2024 8:30 AM PILL MACHINE OPERATOR 10/17/2024 8:17 PM PILL MACHINE OPERATOR Jossie James MD LAB BLOOD ORDERABLES Final Result Performing Organization Address [facility] Co de Phone Number [facility] [address] [facility] [place] [employer] [place] [address] * Albumin Creatinine Ratio, Urine (10/17/2024 8:30 AM PILL MACHINE OPERATOR) Albumin Ur <12.0 mg/L Comment: Interpretive Data No reference range established. Current interpretive data was last revised 2019. Creatinine Ur 107.9 mg/dL [facility] Comment: Interpretive Data No reference range established. Current interpretive data was last revised 2019. Albumin Creatinine Ratio, Ur <11 1 - 29 mg/g [facility] Urine (Urine, Clean Catch) 10/17/2024 8:30 AM PILL MACHINE OPERATOR 10/17/2024 8:01 PM PILL MACHINE OPERATOR Narrative [facility] - 10/17/2024 8:54 PM PILL MACHINE OPERATOR FAX RESULTS [phone] JACINTO JAMES Jossie James MD LAB URINE ORDERABLES Final Result Performing Organization Address [facility] de Phone Number [facility] [address] [facility] [place] [place] [address] * (ABNORMAL) Hemoglobin A1c (10/17/2024 8:30 AM PILL MACHINE OPERATOR) Pathologist [facility] Hgb A1C 6.7(H) 4.0 - 5.6 % Estimated Average Glucose 146 mg/dL [facility] Comment: The ADA recommends reporting an estimated Average Glucose (eAG) with all Hemoglobin A1c results using the equation derived from a study of 507 normal and diabetic adults. Minority populations were underrepresented and children were not included. (Diabetes Care 31:5940-4524, 2008). The eAG is not equivalent to a fasting glucose. Blood Venous blood specimen / Unknown 10/17/2024 8:30 AM PILL MACHINE OPERATOR 10/17/2024 8:01 PM PILL MACHINE OPERATOR Narrative [facility] - 10/17/2024 8:35 PM PILL MACHINE OPERATOR FAX RESULTS [phone] JACINTO JAMES us Jossie James MD LAB BLOOD ORDERABLES Final Result [facility] [address] [facility] [place] [address] * Lipid panel (10/17/2024 8:30 AM PILL MACHINE OPERATOR) Cholesterol 155 30 - 199 mg/dL [...] blood specimen / Unknown 10/17/2024 8:30 AM PILL MACHINE OPERATOR 10/17/2024 8:01 PM PILL MACHINE OPERATOR Narrative [facility] - 10/17/2024 8:41 PM PILL MACHINE OPERATOR FAX RESULTS [phone] JACITNO JAMES us Jossie James MD LAB BLOOD ORDERABLES Final Result [facility] [address] [facility] [place] [address] from Last 3 Months or Most Recently Relevant to Health Maintenance Insurance [facility] MEDICARE ADVANTAGE [facility] MEDICARE Address: [address] [address] [place] [address] [employer] MEDICARE ADVANTAGE [facility] MEDIC[facility] Address: [address] [address] [place] [address] Care Teams Grain Combiner Relationship Specialty Start Date End Date Phoebe Jaquez NP PCP - General Nurse Practitioner 11/24/19
--- OUTSIDE RECORDS SUMMARY | 2025-04-13 09:47 | XMS_ITS | Data Portability ---
Author Organization [place] [facility], Main Office Address [address] [place] [address] Care Team Providers Care Tailer In Name Role Phone JACINTO VELASQUEZ Primary Care Provider JACINTO VELASQUEZ Referring Provider GIORGIO DOYLE [employer] HANY LING Orthopedic Surgeon MITA YOUNGBLOOD [employer] Worker JONNA MARIE Accredited Pharmacy Technician [phone] Assessment Encounter Date Assessment Date Assessment LastModified by Organization Details LastModified Time 07/14/2024 07/14/2024 02/01/2023: A1C 7.9 Gluc 183 [...] A1C 7.5 10/17/2024: K 5.1 A1C 6.7 11/13/2024:[facility] labs H/H 12.9/40.4 Gluc 164, ALT 350, ALP 279 I have reconciled the patient's medications post their discharge from inpatient facility. Not available 11/19/2024 18:07:25 01/21/2025 01/21/2025 02/01/2023: A1C 7.9 Gluc 183 HGB 12.6 06/28/2023: A1C 7.4 Gluc 138, BUN 24, Alb 4.5H, TP WNL 11/22/2023: Gluc 134 TSH 4.4, FT4 1.50 A1C 7.1 04/04/2024: A1C 6.6 07/04/2024: A1C 7.5 10/17/2024: K 5.1 A1C 6.7 11/13/2024:[facility] labs H/H 12.9/40.4 Gluc 164, ALT 350, ALP 279 01/19/2025: A1C 6.9 BUN 29, GFR 58, ALT 68 H/H 12.5/40.4 Not available 01/20/2025 19:30:45 04/06/2025 04/06/2025 02/01/2023: A1C 7.9 Gluc 183 HGB 12.6 06/28/2023: A1C 7.4 Gluc 138, BUN 24, Alb 4.5H, TP WNL 11/22/2023: Gluc 134 TSH 4.4, FT4 1.50 A1C 7.1 04/04/2024: A1C 6.6 07/04/2024: A1C 7.5 10/17/2024: K 5.1 A1C 6.7 11/13/2024:[facility] labs H/H 12.9/40.4 Gluc 164, ALT 350, ALP 279 01/19/2025: A1C 6.9 BUN 29, GFR 58, ALT 68 H/H 12.5/40.4 04/01/2025: BUN/Cr/GFR 30/1.27/54, gluc 249 A1C 9.5H [email or web address] Not available 04/06/2025 14:50:20 Plan of Treatment Reminders Order Date Submit Date Provider Last Modified By Organization Details Last Modified Time Details Appointments Any 15 2024 01:30P M Jacinto cao MD Not available Not available Not available Lab glycohemo globin, total, blood [address], [address], 04/06/2025 15:06:45 microalbu min, urine [address], [address], 04/06/2025 15:06:45 lipid panel, serum [address] [place] [address], [address], 04/06/2025 15:06:46 CMP, serum or plasma [address] [place] [address], [address], 04/06/2025 15:06:46 TSH, serum or plasma [address] [place] [address], [address], 04/06/2025 15:06:46 CBC w/ auto diff [address], [address] [place], [address], 04/06/2025 15:06:47 T4, free, serum [address], [address] [place], [address], 04/06/2025 15:06:47 glycohemo globin, total, blood [address], [address] [place], [address], 01/21/2025 14:24:34 microalbu min, urine [address], [address] [place], [address], 01/21/2025 14:24:34 lipid panel, serum [address], [address] [place], [address], 01/21/2025 14:24:34 CMP, serum or plasma 2024 025 [facility], [address] [place], [address], 04/01/2025 13:17:09 TSH, serum or plasma [address], [address] [place], [address], 01/21/2025 14:24:34 CBC w/ auto diff 2024 025 [facility], [address] [place], [address], 04/01/2025 13:17:09 T4, free, serum [address] [place], [address], 01/21/2025 14:24:35 hepatitis panel (A+B+C), acute, serum [address], [address] [place], [address], 01/28/2025 09:20:17 gamma-glu tamyl transfera se (ggt), serum [address], [address] [place], [address], 01/28/2025 09:20:26 potassium , serum or plasma [address], [address] [place], [address], 12/05/2024 15:51:14 glycohemo globin, total, blood [address], [address] [place], [address], 12/05/2024 15:51:13 microalbu min, urine [address], [address] [place], [address], 12/05/2024 15:51:13 lipid panel, serum [address], [address] [place], [address], 12/05/2024 15:51:13 CMP, serum or plasma 2024 025 [facility]ISA [facility], [address] [place], [address], 01/19/2025 13:03:50 TSH, serum or plasma 2024 025 [email or web address] Out[facility], [address], [place], [address], 12/05/2024 15:51:14 CBC w/ auto diff 2024 025 [facility], [address], [place], [address], 01/19/2025 13:03:51 T4, free, serum 2024 025 [email or web address] Outpatient [facility], [address], [place], [address], 12/05/2024 15:51:14 potassium , serum or plasma [address] (Lab), [address], [place], [address], 10/30/2024 12:04:37 glycohemo globin, total, blood 2023 024 [facility] (Lab), [address], [place], [address], 10/22/2024 12:30:50 microalbu min, urine 2023 024 [facility] (Lab), [address], [place], [address], 10/22/2024 12:30:49 lipid panel, serum 2023 024 [facility] (Lab), [address], [place], [address], 10/22/2024 12:30:50 CMP, serum or plasma 2023 024 [facility] (Lab), [address], [place], [address], 10/22/2024 12:30:50 TSH, serum or plasma 2023 024 [facility] (Lab), [address], [place], [address], 10/22/2024 12:30:49 CBC w/ auto diff 2023 024 [facility] (Lab), [address], [place], [address], 10/22/2024 12:30:50 T4, free, serum 2023 024 [facility] (Lab), [address], [place], [address], 10/22/2024 12:30:50 glycohemo globin, total, blood 2023 024 [email or web address] Not available 01/13/2025 10:07:32 microalbu min, urine 2023 024 [email or web address] Not available 01/13/2025 10:07:32 lipid panel, serum 2023 024 [email or web address] Not available 01/13/2025 10:07:32 CMP, serum or plasma 2023 024 [email or web address] Not available 01/13/2025 10:07:33 TSH, serum or plasma 2023 024 Not available 01/13/2025 10:07:33 CBC w/ auto diff 2023 024 [email or web address] Not available 01/13/2025 10:07:33 T4, free, serum 2023 024 [email or web address] Not available 01/13/2025 10:07:33 Referral general surgeon referral - Please call patient to schedule an appointme nt. Thank you. 2024 025 [facility] Jonna Marie DO, [address], [address], [place], [address], 04/09/2025 12:45:23 nephrolog ist referral - Please call patient to schedule an appointme nt. Thank you. 2024 025 Virginia-Resub amena-Revert Stone Granda MD (Nephrology, [address], [address], [place], [address], 04/09/2025 13:25:37 orthopedi c surgeon referral - Please call patient to schedule an appointme nt. Thank you. 2024 025 REUBEN Mccartney, [address], [address], [place], [address], 04/07/2025 10:20:27 orthopedi c surgeon referral - Please call patient to schedule an appointme nt. Thank you. 2024 025 REUBEN Mccartney, [address], [address], [place], [address], 01/21/2025 18:40:43 cardiolog ist referral - Please call patient to schedule an appointme nt. Thank you. 2024 025 REUBEN Jaeger, [address], [place], [address], 01/21/2025 19:15:22 orthopedi c surgeon referral 2024 025 maine Mccartney MD, [address] [facility] [address], [facility], [place], [address], 12/05/2024 15:51:17 cardiolog ist referral 2024 025 maine Jaeger, [address], [place], [address], 12/05/2024 15:51:16 podiatris t referral 2024 025 maine Doyle DPM, [address] [facility], [address], [place], [address], 12/05/2024 15:51:17 orthopedi c surgeon referral 2023 024 [email or web address] Isaiah Mccartney MD, [address] [facility] [address], [place], [address], 10/23/2024 11:37:40 cardiolog ist referral 2023 024 Tanmay Jaeger, [address], [place], [address], 10/23/2024 11:37:39 podiatris t referral 2023 024 [email or web address] Giorgio Doyle DPM, [address], [address], [place], [address], 10/23/2024 11:37:39 orthopedi c surgeon referral 2023 024 [email or web address] 2 Isaiah Mccartney MD, [address] [facility] [address], [place], [address], 02/02/2025 09:03:28 cardiolog ist referral 2023 024 [email or web address] Tanmay Jaeger, [address], [place], [address], 08/12/2024 16:14:25 podiatris t referral 2023 024 [email or web address] Giorgio Doyle DPM, [address], [address], [place], [address], 08/12/2024 16:14:24 Procedures None recorded. Surgeries None recorded. Imaging US, liver - Please call patient to schedule. 2024 025 [facility], [address], [place], [address], 01/28/2025 08:08:31 Medication Orders Tresiba FlexTouch U-100 insulin 100 unit/mL (3 mL) subcutane ous pen 2024 025 [id number], [address] [place], [place], [id number], 04/06/2025 14:59:18 Patient TargetsNo targets recorded. Patient Instructions Encounter Date Encounter Id Patient Instructions Last Modified By Organization Details Last Modified Time 11/19/2024 [id number] Thank you for your visit to our [...] Equipment needed: walker Billing Guidelines CPT code 16367- Transitional Care Management services with moderate medical decision complexity (xagl-jg-fzqn visit within 14 days of discharge). CPT code 12828- Transitional Care Management services with high medical decision complexity (cyfq-se-yulk visit within 7 days of discharge). Not available 11/19/2024 17:49:24 Reason for Referral [employer] Referral for Type 2 diabetes mellitus without complication Referring Physician: Jacinto Velasquez Internal Medicine, Encounter Date: 07/14/2024 [employer]aking [employer] Worker Referral for Pa roxysmal atrial fibrillation Referring Physician: Jacinto Velasquez Internal Medicine, Encounter Date: 07/14/2024 Orthopedic Surgeon Referral for Pain of bilateral hip joints Referring Physician: Jacinto Velasquez Internal Medicine, Encounter Date: 07/14/2024 [employer] Referral for Type 2 diabetes mellitus without complication Referring Physician: Jacinto Velasquez Internal Medicine, Encounter Date: 10/22/2024 [employer]aking [employer] Worker Referral for Pa roxysmal atrial fibrillation Referring Physician: Jacinto Velasquez Internal Medicine, Encounter Date: 10/22/2024 Orthopedic Surgeon Referral for Pain of bilateral hip joints Referring Physician: Jacinto Velasquez Internal Medicine, Encounter Date: 10/22/2024 [employer] Referral for Type 2 diabetes mellitus without complication Referring Physician: Jacinto Velasquez Internal Medicine, Encounter Date: 11/19/2024 [employer]aking [employer] Worker Referral for Pa roxysmal atrial fibrillation Referring Physician: Carissa Dozier Medicine, Encounter Date: 11/19/2024 Orthopedic Surgeon Referral for Pain of bilateral hip joints Referring Physician: Carissa Dozier Medicine, Encounter Date: 11/19/2024 [employer]aking [employer] Worker Referral for Pa roxysmal atrial fibrillation Please call patient to schedule an appointment. Thank you. Referring Physician: Carissa Dozier Medicine, Encounter Date: 01/21/2025 Orthopedic Surgeon Referral for Pain of bilateral hip joints Please call patient to schedule an appointment. Thank you. Referring Physician: Carissa Dozier Medicine, Encounter Date: 01/21/2025 Orthopedic Surgeon Referral for Pain of bilateral hip joints Please call patient to schedule an appointment. Thank you. Referring Physician: Carissa Dozier Medicine, Encounter Date: 04/06/2025 Combination Man Referral for Ch ronic kidney disease Please call patient to schedule an appointment. Thank you. Referring Physician: Carissa Dozier Medicine, Encounter Date: 04/06/2025 General Surgeon Referral for Gallbladder mass Please call patient to schedule an appointment. Thank you. Referring Physician: Jacinto Velasquez, Internal Medicine, Encounter Date: 04/06/2025 Results Created Date Observation Date Name Description Value Unit Range Abnormal Flag Note LastModifiedBy Organization Detail LastModifiedTime 11/07/19 25 11/07/2024 imagi ng/di agnos tic resul t No observ ation record ed. [place] [id number] [facility] [address], [place], [address], 11/07/2024 14:37:03 11/08/19 25 11/08/2024 imagi ng/di agnos tic resul t No observ ation record ed. [address], [place], [address], 11/08/2024 15:46:15 01/29/20 25 01/27/2025 US, liver No observ ation record ed. [email or web address] Imaging 2022 Carla Barboza [facility] [address], [place], [address], 02/11/2025 17:22:23 04/03/20 25 04/02/2025 imagi ng/di agnos tic resul t No observ ation record ed. [facility] [address] [facility], [place], [address], 04/03/2025 13:32:46 Result Notes None recorded. Problems Name Problem SNOMED Code Status Onset Date Resolution Date Notes Provider Name and Address Organization Details Recorded Time Abnormal gait 60937730 Active 2022 Not Available [facility] 4 08:54:30 Gastroesop hageal reflux disease without esophagiti s 141418621 Active 2022 Not Available [facility] 4 08:54:30 Erectile dysfunctio n 777938490 Active 2022 Not Available [facility] 4 08:54:30 Pain of right shoulder joint 0163602865852 9100 Active 2022 Not Available [facility] 4 08:54:30 Dystrophia unguium 90981142 Active 2022 Not Available [facility] 4 08:54:30 Diabetic peripheral neuropathy 722207799 Active 2022 Not Available [facility] 4 08:54:30 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 2102493993573 00 Active 2022 Not Available [facility] 4 08:54:30 Bronchitis 52127823 Active 2022 Not Available [facility] 4 08:54:30 Coronary arterioscl erosis 01557545 Active 2023 Jacinto shay MD [address], [address], [place], [address] , [facility] 4 11:43:30 Paroxysmal atrial fibrillati on 385574355 Active 2023 Jacinto shay MD [address], [place], [address] , [facility] 4 11:45:40 Unsteady when walking 54132482 Active 2023 Jacinto shay MD [address], [place], [address] , [facility] 4 12:49:16 Chronic low back pain 602668589 Active 2023 Jacinto shay MD [address], [place], [address] , [facility] 4 11:40:24 Radiology result abnormal 599036756 Active 2023 Cely Morales MA null, [facility] 4 16:42:40 Pain of bilateral hip joints 9661928163463 9100 Active 2023 Kim Mary CNA null, [place] [facility] 4 11:38:20 Laboratory test result abnormal 834741970 Active 2023 Cely Morales MA null, [place] [facility] 4 10:24:17 Osteoarthr itis of bilateral hip joints 5309596248885 05 Active 2023 FAUZIA Irwin [address], [address], [place], [address] , [place] [facility] 4 11:19:45 Pain of right hip joint 8638280040953 02 Active 2023 FAUZIA Irwin [address], [place], [address] , [place] [facility] 4 11:20:07 Small bowel obstructio n 527853780 Active 2023 Jacinto shay MD [address], [address], [place], [address] , [place] [facility] 4 17:53:12 Osteoarthr itis of right hip joint 2506332136609 07 Active 2023 Gregoria Camilakillian taylor, [place] [facility] 4 16:11:53 Osteoarthr itis of hip 552904896 Active 2023 Gregoria Camila null, [place] [facility] 4 16:12:05 Hyperkalem ia 12900489 Active 2023 Jacinto shay MD [address], [address], [place], [address] , [place] [facility] 4 19:24:57 Liver enzymes level above reference range 793255329 Active 2024 Jacinto shay MD [address], [address], [place], [address] , [place] [facility] 5 17:48:28 Skin lesion 55101746 Active 2024 Jacinto shay MD [address], [place], [address] , [facility] 5 11:25:16 Joseph hassan 6225824353665 04 Active 2024 Jacinto shay MD [address], [facility] [address], [place], [address] , [facility] 5 14:20:58 Chronic kidney disease 788285412 Active 2024 Jacinto shay MD [address], [place], [address] , [facility] 5 14:23:09 Edema of lower extremity 829084777 Active 2020 Not Available [facility] 4 08:54:30 History of arthroplas ty of right knee 4721756706437 106 Active 2021 Not Available [facility] 4 08:54:30 Gastroesop hageal reflux disease 004483557 Active 2017 Not Available [facility] 4 08:54:30 Osteoarthr itis of knee 955008067 Active 2021 Not Available [facility] 4 08:54:30 Anemia 756794716 Active 2019 Not Available [facility] 4 08:54:30 Foot swelling 305642026 Active 2019 Not Available [facility] 4 08:54:30 Knee pain Active Not Available [facility] 4 08:54:30 Type 2 diabetes mellitus without complicati on 715148696 Active 2017 Not Available [facility] 4 08:54:30 Osteoarthr itis of right knee joint 6134856626939 00 Active 2021 Not Available [facility] 4 08:54:30 Osteoarthr itis 843940035 Active Not Available [facility] 4 08:54:30 Hyperlipid emia 31271150 Active 2017 Not Available [facility] 4 08:54:30 Diabetes mellitus 32694683 Active 2016 Not Available [facility] 4 08:54:30 [facility] 76708728 Active 2017 Not Available [facility] 4 08:54:30 Notes:Some problems listed i n Documents: #[id number], #[id number] could not be added to this patient's chart. Please review these documents and add these problems to the patient's chart manually as needed. Problem Notes None recorded. Procedures Surgical History Date Name Laterality Status Provider Name and Address Organization Details Recorded Time 11/19/19 25 Transitional_Car e_Management completed Jacinto Velasquez MD [address], [address], [place], [address], [facility] [employer] [facility] [employer] [facility] 11/19/2024 17:47:32 05/19/20 24 Nail Debridement completed Giorgio Doyle DPM [address], [place], [address], [employer] [facility] [employer] [facility] 05/19/2024 11:39:35 04/09/20 24 Medicare Wellness CPT Code, subsequent completed Tyrone Gutierrez LPN [employer] [facility] [employer] [facility] 04/04/2024 10:07:34 01/23/20 24 partial excision of small intestine completed SONIDO Colvin [employer] [facility] [employer] [facility] 04/09/2024 10:41:50 07/16/20 23 Nail Debridement completed Giorgio Doyle DPM [address], [place], [address], [facility] [employer] [facility] [employer] [facility] 07/16/2023 14:59:06 04/09/20 23 Nail Debridement completed Giorgio Doyle DPM [address], [place], [address], [facility] [employer] [facility] [employer] [facility] 04/09/2023 14:56:17 04/09/20 23 Medicare Wellness CPT Code, subsequent completed Amena Mejia RN [facility] [employer] [facility] 04/09/2023 11:30:03 Appendectomy completed Not Available [facility] 01/03/2023 04:41:38 Cardiac Stent Placement completed Dinorah Hooks MA [employer] [facility] [place] [employer] 11/19/2024 17:38:28 Imaging Results None recorded. Procedure Notes None recorded. Medical Equipment None Reported. Allergies Allergen ID Allergen Name Allergen Category Reaction Reaction Severity Criticality Documentation Date Start Date Code Code System Note Provider Name and Address Organization Details Recorded Time 30951 lisinopri l medicatio n dizziness Not available Not available 07/16/2023 27974 RxNorm SONIDO Colvin null, [place] [facility] [employer] 3 12:00:19 Medications Name Sig Start Date Stop [...] TAKE 2 TABLETS BY MOUTH EVERY MORNING active Not Available Not Available No t Available hydrocodo ne 5 mg-acetam inophen 325 mg [...] mL by injectio n route. 07/16 completed [facility]: [id number] 4-20 Not Available Not Available Not [...] 81 mg tablet Take by oral route. 04/06 completed Not Available Not Available Not Available diltiazem ER 60 mg capsule,e xtended [...] mL by injectio n route. 07/16 completed [facility] [id number] 02-03 Not Available Not Available Not Available Ilevro 0.3 % eye drops,aryan pension 02/21 completed Not Available Not Available Not Available Eliquis 5 mg tablet TAKE 1 TABLET BY MOUTH TWICE DAILY active Not Available Not Available No t Available Farxiga 10 mg tablet TAKE 1 TABLET BY MOUTH EVERY DAY active Not Available Not Available No t Available Tresiba FlexTouch U-100 insulin 100 unit/mL (3 mL) subcutane ous pen ADMINIST ER 10 UNITS UNDER THE SKIN EVERY DAY AT DINNER active Not Available Not Available No t Available OneTouch Ultra Blue Test Strip USE 1 [...] Updated DateTime 5 182.88 cm 21.3 kg/m2 46808 g 97.8 [degF] 92 /min 92 % 92 % 124 mm[Hg] 64 mm[Hg] Dinorah Hooks MA [employer] 5 17:33:06 Date Recorded Body height Body mass index (BMI) Body weight Body temperature Heart rate Systolic blood pressure Diastolic blood pressure Provider Name and Address Organization Details Last Updated DateTime 5 182.88 cm 20.9 kg/m2 68793.2 2 g 97.8 [degF] 72 /min 110 mm[Hg] 60 mm[Hg] SONIDO Colvin [employer] 5 10:43:23 Date Recorded Body height Body mass index (BMI) Body weight Body temperature Heart rate Oxygen saturation Oxygen saturation in Arterial blood by Pulse oximetry Systolic blood pressure Diastolic blood pressure Provider Name and Address Organization Details Last Updated DateTime 5 182.88 cm 21.7 kg/m2 02344.7 8 g 97.7 [degF] 66 /min 98 % 98 % 104 mm[Hg] 64 mm[Hg] Dinorah Hooks MA [facility] [employer] [facility] 5 14:04:42 Date Recorded Body height Body mass index (BMI) Body weight Body temperature Heart rate Respiratory rate Oxygen saturation Oxygen saturation in Arterial blood by Pulse oximetry Systolic blood pressure Diastolic blood pressure Provider Name and Address Organization Details Last Updated DateTime 4 182.88 cm 21.3 kg/m2 76287 g 97.7 [degF] 74 /min 18 /min 98 % 98 % 110 mm[Hg] 68 mm[Hg] Tyrone Gutierrez LPN [facility] [employer] [facility] 4 11:05:43 Date Recorded Body height Body mass index (BMI) Body weight Body temperature Heart rate Systolic blood pressure Diastolic blood pressure Provider Name and Address Organization Details Last Updated DateTime 4 182.88 cm 21.7 kg/m2 81957.7 8 g 97.6 [degF] 78 /min 118 mm[Hg] 70 mm[Hg] SONIDO Colvin [facility] [employer] [facility] 4 11:28:52 Social History Question Answer Notes LastModified by Organizat ion Details LastModified Time Tobacco Smoking Status Never Smoker Not Available [facility] 01/03/2023 04:16:31 Do You Have An Advance Directive? Yes [email or web address] Information not available 04/09/2023 Are You Blind Or Do You Have Difficulty Seeing? No [email or web address] Information not available 04/09/2023 What Is Your Level Of Caffeine Consumption? Occasional [id number] Information not available 01/03/2023 In The 14 [...] Do You Have Serious Difficulty Hearing? No [email or web address] Information not available 04/09/2023 What Type Of Diet Are You Following? REGULAR [id number] Information not available 01/03/2023 What Is The Highest Grade Or Level Of School You Have Completed Or The Highest Degree You Have Received? [id number] Information not available 01/03/2023 Have There Been Any Changes To Your Family Or Social Situation? No [email or web address] Information no t available 04/09/2024 What Is The Fluoride Status Of Your Home? Unknown Information not available 04/09/2024 Are There Any Guns Present In Your Home? No [email or web address] Information not available 04/09/2024 Do You Use Insect Repellent Routinely? Yes [id number] Information not available 01/03/2023 Where Do You Live? [facility] Information not available 04/09/2024 Presence Of Domestic Violence No [email or web address] Information no t available 04/09/2023 Guns Present In The Home? No Information not available 04/09/2024 Are You Able To Care For Yourself? Yes [email or web address] Information not available 04/09/2023 Are You Blind Or Do Yo Have Difficulty Seeing? No [email or web address] Information not available 04/09/2023 Are You Deaf Or Do You Have Serious Difficulty Hearing? No [email or web address] Information not available 04/09/2023 General Stress Level? Low [email or web address] Information not available 04/09/2023 Live Alone Of With Others? With Others Information not available 04/09/2023 Do You Have A Medical Power Of Sales And Merchandising Associate? Yes [email or web address] Information not available 04/09/2024 What Was The Date Of Your Most Recent Tobacco Screening? 04/06/2025 Information not available 04/06/2025 How Many Children Do You Have? 3 Information not available 04/06/2025 Do You Have Any Pets? No [email or web address] Information not available 04/09/2024 What Is Your Relationship Status? [id number] Information not available 01/03/2023 Do You Use Your Seat Belt Or Car Seat Routinely? Yes Information not available 04/09/2023 Do You Have Smoke And Carbon Monoxide Detectors In Your Home? Yes [id number] Information not available 01/03/2023 Are You Passively Exposed To Smoke? No MIGRATION.[id number] 8265 Information not available 01/03/2023 Are There Any Smokers In Your House? No [id number] Information not available 01/03/2023 What Types Of Sporting Activities Do You Participate In? None [email or web address] Information not available 04/09/2024 Do You Use Sunscreen Routinely? Yes [id number] Information not available 01/03/2023 Has Tobacco Cessation Counseling Been Provided? No N/a Information not available 07/16/2023 Have You Recently Traveled Abroad? No Information not available 04/09/2023 Do You Have Difficulty Walking Or Climbing Stairs? No [email or web address] Information not available 04/09/2023 Do You Have Any Dietary Restrictions? No MIGRATION.[id number] 5347 Information not available 01/03/2023 Sex: Unknown Functional Status Question Answer Note LastModified by [employer] Details LastModified Time Do you use any illicit or recreational drugs? No MIGRATION.675066 8154 Information not available 01/03/2023 Do you or have you ever used any other forms of tobacco or nicotine? No Information not available 07/16/2023 What is your level of alcohol consumption? None MIGRATION.448015 7729 Information not available 01/03/2023 Are you currently employed? No Retired [email or web address] Information not available 04/09/2024 Do you have transportation difficulties? No [email or web address] Information not available 04/09/2024 Are you able to walk? YESASSIST Walker [email or web address] Information not available 04/09/2024 Do you have difficulty doing errands alone? No [email or web address] Information not available 04/09/2023 Are you able to care for yourself? Yes Information n ot available 04/09/2023 Do you have difficulty dressing or bathing? No Information not available 04/09/2023 What is your exercise level? None [email or web address] Information not available 04/09/2024 Mental Status Question Answer Note LastModified by [employer] ion Details LastModified Time Do you feel stressed (tense, restless, nervous, or anxious, or unable to sleep at night)? [id number] [id number] 26 Information not available 01/03/2023 Do you have difficulty concentrating, remembering or making decisions? No [email or web address] Information no t available 04/09/2023 Family History Relationship Description Onset Age of this Age Resolved Age Notes LastModified by Organization Details LastModified Time Sister Family history of malignant neoplasm [id number] Not available 01/03/2023 04:41:41 Sister Diabetes mellitus [id number] Not available 01/03/2023 04:41:41 Brother Family history [...] mcg/0.3 mL 3 completed Maureen Mckeon RMA null, [facility] [employer] 11/13/2023 12:14:33 RSV, recombinant, protein subunit RSVpreF, adjuvant reconstituted, 0.5 mL, PF 4 completed Maureen Mckeon RMA null, [facility] [employer] [facility] [employer] 12/10/2023 17:42:14 pneumococcal polysaccharide PPV23 3 completed Maureen Mckeon RMA null, [place] [employer] [facility] [employer] [facility] 08/22/2024 12:47:49 COVID-19, mRNA, LNP-S, PF, tam-sucrose, 30 mcg/0.3 mL 4 completed Maureen Mckeon RMA brandon, [employer] [employer] 08/22/2024 12:48:18 COVID-19, mRNA, LNP-S, PF, 100 mcg/0.5mL dose or 50 mcg/0.25mL dose 1 completed Not Available [employer] 07/16/2023 07:27:59 Influenza, split virus, quadrivalent, preservative 9 completed Not Available [employer] 07/16/2023 07:27:59 Pneumococcal conjugate PCV 13 9 completed Not Available [facility] 07/16/2023 07:27:59 Influenza, high-dose, quadrivalent, PF 2 completed Not Available [facility] 07/16/2023 07:27:59 Influenza, high-dose, quadrivalent, PF 1 completed Not Available [facility] 07/16/2023 07:27:59 Influenza, high-dose, quadrivalent, PF 0 completed Not Available [facility] 07/16/2023 07:27:59 Influenza, high-dose, trivalent, PF 9 completed Not Available [facility] 07/16/2023 07:27:59 Influenza, high-dose, trivalent, PF 8 completed Not Available [facility] 07/16/2023 07:27:59 Influenza, high-dose, trivalent, PF 4 completed VIDA Martin, [place] - S PA [employer] [facility] 08/11/2024 15:01:10 Past Encounters Encounter ID Performer Location Encounter Start Date Encounter Closed Date Diagnosis/Indication Diagnosis SNOMED-CT Code Diagnosis ICD10 Code Diagnosis Note [id number] [facility] [address] , [place] [address] 02/21/2021 00:00:00 02/21/2021 09:58:48 [id number] [facility] [place] [address] [place] [address] 04/27/2021 00:00:00 04/29/2021 17:25:20 [id number] Maylin Coleman MD [place] [address] [address] [place] [address] 08/16/2021 00:00:00 08/16/2021 11:20:00 [id number] [facility] ic[facility] [place] [address] [place] [address] 10/06/2021 00:00:00 10/16/2021 16:44:50 [id number] [facility] [place] [address] [place] [address] 01/05/2022 00:00:00 01/05/2022 09:23:51 [id number] Nba Gaston MD [facility] [place] [address] [facility] [address] [place] [address] 01/25/2022 00:00:00 01/25/2022 12:31:39 [id number] Maylin Coleman MD [facility] [place] [address] [place] [address] 01/31/2022 00:00:00 01/31/2022 08:57:21 [id number] Nba Gaston MD [facility] [place] [address] [facility] [address] [place] [address] 03/09/2022 00:00:00 03/09/2022 11:35:42 [id number] [facility] [place] [address] [facility] [address] [place] [address] 04/06/2022 00:00:00 04/06/2022 13:51:46 [id number] Maylin Coleman MD [facility] [address] , [place] [address] 08/30/2022 00:00:00 08/31/2022 08:52:00 [id number] Maylin Coleamn MD [facility] [place] [address] 09/19/2022 00:00:00 09/19/2022 09:59:47 [id number] [facility] [place] [address] [facility] [address] [place] [address] 10/05/2022 00:00:00 10/05/2022 13:44:52 [id number] Jacinto shay MD [facility] Internal Med [place] [address] [place] [address] [place] [address] 12/06/2022 00:00:00 12/06/2022 12:46:18 [id number] Jacinto shay MD [facility] Internal Med [place] [address] [place] [address] [place] [address] 04/09/2023 11:00:05 04/09/2023 11:49:08 Screening - NAD 408060183 Z13.9 C-scope: Not doing at this time, no complaints Cologuard 01/08/2023 : Neg UTD on flu shotUTD on PCV #13, get #23Get tap/shingr ix vaccineGet COVID vaccine and its boosters RTC in 3 monthsDo labs, ER if worse, he and his did verbalize his understand ing of the above Gout 09397583 M10.9 On allopurino l 300mg daily 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 791336339 E11.9 On metformin 500mg 2 tabs bidNow on Farxiga 10mg daily Get labsKeep apt with Dr Doyle, see eye MDNot on INÉS-I, get labs may need to start in lisinopril Hyperlipidemia 03856182 E78.5 On simvastati n 40mg dailyGet labs Gastroesop hageal reflux disease without esophagitis 939244564 K21.9 On omeprazole 20mg dailyDoes well, take as needed Erectile dysfunction 860 325569 F52.21 On tadalafil, take PRN Anemia 884463085 D64.9 More iron in diet Adult heal th examination 435246175 Z00.00 Screening for disorder 877365043 Z13.9 Pain of ri ght shoulder joint 3011836211 6856382 M25.511 Get a referral to Dr Quintero [id number] Giorgio Doyle, GERTRUDE [facility] [place] [address] [place] [address] 04/09/2023 13:58:03 04/10/2023 10:15:38 Diabetes mellitus 97941354 E11.40 Continue per PCP recommenda tions Dystrophia unguium 11997 009 L60.3 Nails 1 through 10 were debrided with sharp mechanical debridemen t without incident. Nails were debrided and greater than 50% length and thickness where needed. Diabetic p eripheral neuropathy 525395285 E11.40 Patient educated on neuropathy , diabetes, diabetic diet, and daily foot exams. Patient is to check feet daily for new wounds, blisters, redness to prevent infection and ulceration s to the feet. Patient will return to clinic in 3 months for diabetic foot workup. [id number] Teddy Quintero MD [facility] [place] 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 6834558220 67667 M19.151 [id number] Jacinto shay MD [facility] Internal [facility] [place] [address] [facility] y , [facility] [address] 07/16/2023 11:26:31 07/16/2023 12:45:27 Screening - NAD 118848511 Z13.9 C-scope: Not doing at this time, no complaints Cologuard 01/08/2023 : Neg UTD on flu shotUTD on PCV #13, get #23Get tap/shingr ix vaccineGet COVID vaccine and its boosters RTC in 3 monthsDo labs, ER if worse, he and his did verbalize his understand ing of the above Gout 03621129 M10.9 On allopurino l 300mg daily 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 032470972 E11.9 On metformin 500mg 2 tabs bidOn Farxiga 10mg daily Get labsKeep apt with Dr Doyle, see eye Osei on INÉS-I, get labs may need to start in lisinopril , not wanting this yet as he fears his BP will go low 07/16/2023 Hyperlipidemia 41586261 E78.5 On simvastati n 40mg dailyGet labs Gastroesop hageal reflux disease without esophagitis 666360717 K21.9 On omeprazole 20mg dailyDoes well, take as needed Erectile dysfunction 860 853043 F52.21 On tadalafil, take PRN Anemia 321521878 D64.9 More iron in diet Pain of ri ght shoulder joint 1898304965 0017840 M25.511 Neo Nicholasclarissa 04/17/2023 Bronchitis 53037970 J40 Still has a cough, seen in UCGet on MDPCall if not better [id number] Giorgio Doyle DPM [facility] [place] [address] [place] [address] 07/16/2023 14:29:25 07/16/2023 15:07:46 Diabetic peripheral neuropathy 847749089 E11.40 Continue diabetic control per PCPCheck feet daily for wounds infectionC ontinue supportive shoe gearFollow -up in 4 months for diabetic foot care Dystrophia unguium 03733 009 L60.3 Nails 1 through 10 were debrided with sharp mechanical debridemen t without incident. Nails were debrided and greater than 50% length and thickness where needed. [id number] Jacinto shay MD [facility] [place] [address] [facility] [place] [address] 09/10/2023 09:29:50 09/10/2023 10:40:49 Gastroesophageal reflux disease without esophagitis 564045388 K21.9 On omeprazole 20mg daily, can do bid, states that he has tried this and it has helped, also get an EGD doneDoes well, take as needed See case 09/06/2023 [id number] Giorgio Doyle DPM [facility] [place] [address] [place] [address] 11/19/2023 14:14:02 11/20/2023 12:08:36 Diabetes mellitus 46264971 E11.40 Continue per PCP recommenda tions Diabetic p eripheral neuropathy 846018520 E11.40 control diabetes to prevent worsening neuropathy Check feet daily for wounds infection- continue supportive shoe gearContin ue supportive shoe gear 6 months for diabetic foot care [id number] Jacinto shay MD [facility] [place] [address] [facility] [place] [address] 12/10/2023 11:01:02 12/10/2023 12:40:54 Gastroesophageal reflux disease without esophagitis 762164263 K21.9 On omeprazole 20mg daily, can do bid, states that he has tried this and it has helped, also get an EGD doneDoes well, take as needed See case 09/06/2023 Dr Brewster 10/15/2023 Screening - NAD 83811882 3 Z13.9 C-scope: Not doing at this time, no complaints Cologuard 01/08/2023 : Neg UTD on flu shotUTD on PCV #13, get #23Get tap/shingr ix vaccineGet COVID vaccine and its boostersCa n do RSV vaccine RTC in 3 monthsDo labs, ER if worse, he and his did verbalize his understand ing of the above Gout 28331563 M10.9 On allopurino l 300mg daily 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 183326940 E11.9 On metformin 500mg 2 tabs bidOn Farxiga 10mg daily Get labsKeep apt with Dr Doyle, see eye MDNot on INÉS-I, get labs may need to start in lisinopril , not wanting this yet as he fears his BP will go low Hyperlipidemia 59594474 E78.5 On simvastati n 40mg dailyGet labs Erectile dysfunction 860 041753 F52.21 On tadalafil, take PRN Anemia 346942626 D64.9 More iron in diet Pain of ri ght shoulder joint 5738310957 0836349 M25.511 Neo Ribera 04/17/2023 Paroxysmal atrial fibrillation 611896617 I48.0 On ASAOn diltiazem ER 120mg dailyOn eliquis 5mg bidOn Farxiga 10mg 1/2 tabletOn ranolazine ER 500mg dailySees [facility] Dr Jaeger 10/31/2023 Unsteady when walking 22 257384 R26.89 Feels that his gait is getting worse, does use a cane, advised to use a walker and also get PT to eval and treat [id number] Fredrick Vera MD [facility] [place] [address] [place] [address] 01/02/2024 11:12:32 01/02/2024 11:58:21 Pain of bilateral hip joints 3222157852 8023765 M25.551 M25.028 [id number] Fredrick Vera MD [facility] [place] [address] [place] [address] 04/03/2024 10:51:06 04/03/2024 11:31:27 Osteoarthritis of bilateral hip joints 3830420198 97282 M16.0 Pain of ri ght hip joint 3886636271 98547 M25.048 [id number] Jacinto shay MD [facility] [place] [address] [facility] [place] [facility] [place] [address] 04/09/2024 10:26:54 04/09/2024 11:19:27 Adult health examination 146209773 Z00.00 Screening for disorder 521152073 Z13.9 Screening - NAD 37656605 3 Z13.9 C-scope: Not doing at this time, no complaints Cologuard 01/08/2023 : Neg UTD on flu shotUTD on PCV #13, get #23Get tap/shingr ix vaccineGet COVID vaccine and its boostersCa n do RSV vaccine RTC in 3 monthsDo labs, ER if worse, he and his did verbalize his understand ing of the above Gastroesop hageal reflux disease without esophagitis 367421098 K21.9 On omeprazole 20mg daily, can do bid, states that he has tried this and it has helped, also get an EGD doneDoes well, take as needed See case 09/06/2023 Dr Brewster 10/15/2023 Dr Herrera 01/23/2024 Gout 36732043 M10.9 On allopurino l 300mg daily 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 489533140 E11.9 On metformin 500mg 2 tabs bidOn Farxiga 10mg daily Get labsKeep apt with Dr Doyle, see eye MDNot on INÉS-I, get labs may need to start in lisinopril , not wanting this yet as he fears his BP will go low Hyperlipidemia 84959531 E78.5 Not on simvastati n 40mg dailyOn zetia 10mg dailyGet labs Erectile dysfunction 860 194423 F52.21 On tadalafil, take PRN Anemia 461930755 D64.9 More iron in diet Pain of ri ght shoulder joint 4008147540 2145134 M25.511 Neo Mounika 04/17/2023 Paroxysmal atrial fibrillation 735026519 I48.0 S/p d[facility]c from [facility] 02/04/2024 On ASAOn diltiazem ER 120mg dailyOn eliquis 5mg bidOn Farxiga 10mg 1/2 tabletOn ranolazine ER 500mg dailySees [facility] Dr Jaeger 10/31/[address] [facility] [address] Jaeger: 02/28/2024 Unsteady when walking 22 679343 R26.89 Feels that his gait is getting worse, does use a cane, advised to use a walker and also get PT to eval and treat Pain of bi lateral hip joints 7327956219 4370980 M25.551 M25.552 Hany Ling PA: 04/03/2024 Small boogie l obstruction 060141796 K56.609 S/p d/c, from [facility] 02/04/2024 , s/p surgery [id number] Giorgio Doyle DPM [facility] Podiat[facility] [place] [address] [place] [address] 05/19/2024 10:54:37 05/20/2024 13:08:38 Diabetes mellitus 87051949 E11.40 Continue per PCP recommenda tions Dystrophia unguium 00708 009 L60.3 Nails 1 through 10 were debrided with sharp mechanical debridemen t without incident. Nails were debrided and greater than 50% length and thickness where needed. [id number] Jacinto shay MD [facility] [place] [address] [facility] [place] [address] 07/14/2024 10:48:15 07/14/2024 12:04:38 Gastroesophageal reflux disease without esophagitis 904161896 K21.9 On omeprazole 20mg daily, can do bid, states that he has tried this and it has helped, also get an EGD doneDoes well, take as needed See case 09/06/2023 Dr Brewster 10/15/2023 Dr Herrera 01/23/2024 Screening - NAD 11671720 3 Z13.9 C-scope: Not doing at this time, no complaints Cologuard 01/08/2023 : Neg UTD on flu shotUTD on PCV #13, get #23Get tap/shingr ix vaccineGet COVID vaccine and its boostersCa n do RSV vaccine RTC in 3 monthsDo labs, ER if worse, he and his did verbalize his understand ing of the above Gout 86720868 M10.9 On allopurino l 300mg daily 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 616809267 E11.9 On metformin 500mg 2 tabs bidOn Farxiga 10mg daily Get labsKeep apt with Dr Doyle, see eye MDNot on INÉS-I, get labs may need to start in lisinopril , not wanting this yet as he fears his BP will go low Hyperlipidemia 17735846 E78.5 Not on simvastati n 40mg dailyOn zetia 10mg dailyGet labs Erectile dysfunction 860 489182 F52.21 On tadalafil, take PRN Anemia 218342122 D64.9 More iron in diet Pain of ri ght shoulder joint 3536905239 3727060 M25.511 Neo Ribera 04/17/2023 Paroxysmal atrial fibrillation 731012435 I48.0 S/p d/c from [facility] 02/04/2024 On ASAOn diltiazem ER 120mg dailyOn eliquis 5mg bidOn Farxiga 10mg 1/2 tabletOn ranolazine ER 500mg daily [facility] Dr Jaeger: 02/28/[address] [facility] [address] Jaeger: 05/28/2024 Unsteady when walking 22 659458 R26.89 Feels that his gait is getting worse, does use a cane, advised to use a walker and also get PT to eval and treat Fall 06/11/2024 : [facility]- spine/R shoulder/B rain: negative Pain of bi lateral hip joints 2072896065 7729231 M25.551 M25.552 Hany Ling PA: 04/03/[address] Mccartney 07/14/2024 Small boogie l obstruction 605309055 K56.609 S/p d/c, from [facility] 02/04/2024 , s/p surgery, states 07/14/2024 is doing well today [id number] Jacinto shay MD [facility] [address] [facility] [address] [place] [address] 10/22/2024 11:12:47 10/22/2024 12:10:00 Gastroesophageal reflux disease without esophagitis 206714822 K21.9 On omeprazole 20mg daily, can do bid, states that he has tried this and it has helped, also get an EGD doneDoes well, take as needed See case 09/06/2023 Dr Brewster 10/15/2023 Dr Herrera 01/23/2024 Screening - NAD 42885448 3 Z13.9 C-scope: Not doing at this time, no complaints Cologuard 01/08/2023 : Neg UTD on flu shotUTD on PCV #13, get #23Get tap/shingr ix vaccineGet COVID vaccine and its boostersCa n do RSV vaccine RTC in 3 monthsDo labs, ER if worse, he and his did verbalize his understand ing of the above Gout 71038546 M10.9 On allopurino l 300mg daily 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 966184785 E11.9 On metformin 500mg 2 tabs bidOn Farxiga 10mg daily Get labsKeep apt with Dr Doyle, see eye MDNot on INÉS-I, get labs may need to start in lisinopril , not wanting this yet as he fears his BP will go low Hyperlipidemia 56868230 E78.5 Not on simvastati n 40mg dailyOn zetia 10mg dailyGet labs Erectile dysfunction 860 304310 F52.21 On tadalafil, take PRN Anemia 283817430 D64.9 More iron in diet Pain of ri ght shoulder joint 6229741938 3958917 M25.511 Neo Nicholasclarissa 04/17/2023 Paroxysmal atrial fibrillation 350072176 I48.0 S/p d/c from [facility] 02/04/2024 On ASAOn diltiazem ER 120mg dailyOn eliquis 5mg bidOn Farxiga 10mg 1/2 tabletOn ranolazine ER 500mg daily HV Dr Jaeger: 02/28/[address] [facility] [address] Jaeger: 05/28/2024 Unsteady when walking 22 298668 R26.89 Feels that his gait is getting worse, does use a cane, advised to use a walker and also get PT to eval and treat Fall 06/11/2024 : [facility]- spine/R shoulder/B rain: negative Pain of bi lateral hip joints 1199490399 1744756 M25.551 M25.552 Hany Ling PA: 04/03/[address] Mccartney 07/14/2024 Small boogie l obstruction 169639373 K56.609 S/p d/c, from [facility] 02/04/2024 , s/p surgery, states 07/14/2024 is doing well today Hyperkalemia 23501636 E8 7.5 Repeat the K level [id number] Jacinto shay MD [facility] Primary Care [address] [place] [address] 11/19/2024 17:22:08 11/19/2024 18:03:46 Gastroesophageal reflux disease without esophagitis 484568659 K21.9 On omeprazole 20mg daily, can do bid, states that he has tried this and it has helped, also get an EGD doneDoes well, take as needed See case 09/06/2023 Dr Brewster 10/15/2023 Dr Herrera 01/23/2024 Screening - NAD 85866710 3 Z13.9 C-scope: Not doing at this time, no complaints Cologuard 01/08/2023 : Neg UTD on flu shotUTD on PCV #13, get #23Get tap/shingr ix vaccineGet COVID vaccine and its boostersCa n do RSV vaccine RTC in 3 monthsDo labs, ER if worse, he and his did verbalize his understand ing of the above Gout 05797977 M10.9 On allopurino l 300mg daily 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 342522132 E11.9 On metformin 500mg 2 tabs bidOn Farxiga 10mg daily Get labsKeep apt with Dr Doyle, see eye MDNot on INÉS-I, get labs may need to start in lisinopril , not wanting this yet as he fears his BP will go low Hyperlipidemia 32674455 E78.5 Not on simvastati n 40mg dailyOn zetia 10mg dailyGet labs Erectile dysfunction 860 717958 F52.21 On tadalafil, take PRN Anemia 273557766 D64.9 More iron in diet Pain of ri ght shoulder joint 9572916690 4826616 M25.511 Neo Ribera 04/17/2023 Paroxysmal atrial fibrillation 115102002 I48.0 S/p d/c from [facility] 02/04/2024 S/p d/c [facility] 11/12/2024 On ASAOn diltiazem ER 120mg dailyOn eliquis 5mg bidOn Farxiga 10mg 1/2 tabletOn ranolazine ER 500mg daily [facility] Dr Jaeger: 02/28/[address] [facility] [address] Jaeger: 05/28/2024 S/p cardiac cath 11/11/2024 , to take plavix, eliquis 5mg bid and ASA 81mg dailyNeeds to see cardiology referred 11/19/2024 and did d/w Dr Jaeger today Unsteady when walking 22 258619 R26.89 Feels that his gait is getting worse, does use a cane, advised to use a walker and also get PT to eval and treat Fall 06/11/2024 : [facility] spine/R shoulder/B rain: negative Pain of bi lateral hip joints [id number] M25.551 M25.552 Hany Ling PA: 04/03/[address] Mccartney 07/14/2024 Small boogie l obstruction [id number] K56.609 S/p d/c, from [facility] 02/04/2024 , s/p surgery, states 07/14/2024 is doing well Hyperkalemia 05363851 E8 7.5 Repeat the K level Transition of care 48579 61915 105 Z75.8 Liver enzy mes level above reference range 441926942 R74.01 [facility] the [facility] [id number] Jacinto shay MD [facility] [address] [facility] [address] [place] [address] 01/21/2025 09:56:08 01/21/2025 11:27:12 Gastroesophageal reflux disease without esophagitis 764837098 K21.9 Not on omeprazole 20mg daily, can do bid, states that he has tried this and it has helpedOn pantoprazo le 40mg bid given by Tessy sucralfate given by Alba well, take as needed See case 09/06/2023 Dr Brewster 10/15/2023 Dr Herrera 01/23/2024 Dr Nava 01/13/2025 , started on pantoprazo le Screening - NAD 20144266 3 Z13.9 C-scope: Not doing at this time, no complaints Cologuard 01/08/2023 : Neg UTD on flu shotUTD on PCV #13, get #23Get tap/shingr ix vaccineGet COVID vaccine and its boostersCa n do RSV vaccine RTC in 3 monthsDo labs, ER if worse, he and his did verbalize his understand ing of the above Gout 00835923 M10.9 On allopurino l 300mg daily 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 279436660 E11.9 Not on metformin 500mg 2 tabs bid, was told to stop as per his cardiologi stOn Farxiga 10mg daily Get labsKeep apt with Dr Doyle, see eye MDNot on INÉS-I, get labs may need to start in lisinopril , not wanting this yet as he fears his BP will go low Hyperlipidemia 12356190 E78.5 Not on simvastati n 40mg dailyOn zetia 10mg dailyGet labs Erectile dysfunction 860 380803 F52.21 On tadalafil, take PRN Anemia 860401484 D64.9 More iron in diet Pain of ri ght shoulder joint 3111049956 8260921 M25.511 Neo Nicholasclarissa 04/17/2023 Paroxysmal atrial fibrillation 592348107 I48.0 S/p d/c from [facility] 02/04/2024 S/p d/c [facility] 11/12/2024 On ASAOn diltiazem ER 120mg dailyOn eliquis 5mg bidOn Farxiga 10mg 1/2 tabletOn ranolazine ER 500mg daily [facility] Dr Jaeger: 02/28/[address] [facility] [address] Jaeger: 05/28/[address] Jaeger: S/p cardiac cath 11/11/2024 , to take plavix, eliquis 5mg bid and ASA 81mg daily Unsteady when walking 22 359438 R26.89 Feels that his gait is getting worse, does use a cane, advised to use a walker and also get PT to eval and treat Fall 06/11/2024 : [facility]- spine/R shoulder/B rain: negative Pain of bi lateral hip joints 6168934674 3833286 M25.551 M25.552 Hany Ling PA: 04/03/[address] Mccartney 07/14/2024 Small boogie l obstruction 979902367 K56.609 S/p d/c, from [facility] 02/04/2024 , s/p surgery, states 07/14/2024 is doing well Liver enzy mes level above reference range 350036158 R74.01 Get US liver, get hepatitis panel and GGT Skin lesion 34258034 L98 .9 Small pea shaped, non tender, mobile swelling at the posterior scalp, likely lipoma, it was decided to not to get it removed [id number] Jacinto shay MD [facility] [address] [facility] [address] [place] [address] 04/06/2025 13:54:04 04/06/2025 15:07:04 Gastroesophageal reflux disease without esophagitis 354267538 K21.9 Not on omeprazole 20mg daily, can do bid, states that he has tried this and it has helpedOn pantoprazo le 40mg bid given by Tessy castroraldarron given by Alba dumas, take as needed See case 09/06/2023 Dr Brewster 10/15/2023 Dr Herrera 01/23/2024 Dr Nava 01/13/2025 , started on pantoprazo le Screening - NAD 23274299 3 Z13.9 C-scope: Not doing at this time, no complaints Cologuard 01/08/2023 : Neg UTD on flu shotUTD on PCV #13, get #23Get tap/shingr ix vaccineGet COVID vaccine and its boostersCa n do RSV vaccine RTC in 3 monthsDo labs, ER if worse, he and his did verbalize his understand ing of the above Gout 26308711 M10.9 On allopurino l 300mg daily 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 119688014 E11.9 Not on metformin 500mg 2 tabs bid, was told to stop as per his cardiologi stOn Farxiga 10mg dailyGet on tresciba 10U at bedtime, all side effects explained to him and his today 04/06/2025 , watch for LOW glucose symptoms Get labsKeep apt with Dr Reagan sloan on INÉS-I, get labs may need to start in lisinopril , not wanting this yet as he fears his BP will go low Dr Hanna SINGH 03/23/2025 Hyperlipidemia 27128969 E78.5 Not on simvastati n 40mg dailyOn atorvastat in 40mg dailyOn zetia 10mg dailyGet labs Erectile dysfunction 860 206662 F52.21 On tadalafil, take PRN Anemia 739368174 D64.9 More iron in diet Pain of ri ght shoulder joint 2433451384 7630731 M25.511 Neo Ribera 04/17/2023 Paroxysmal atrial fibrillation 597008503 I48.0 S/p d/c from [facility] 02/04/2024 S/p d/c [facility] 11/12/2024 On ASAOn diltiazem ER 120mg dailyOn eliquis 5mg bidOn Farxiga 10mg 1/2 tabletOn ranolazine ER 500mg daily [facility] Dr Jaeger: 02/28/[address] [facility] [address] Jaeger: 05/28/[address] Jaeger: [facility] Dr Jaeger 02/18/2025 S/p cardiac cath 11/11/2024 , to take plavix, eliquis 5mg bid and ASA 81mg daily Unsteady when walking 22 392495 R26.89 Feels that his gait is getting worse, does use a cane, advised to use a walker and also get PT to eval and treat Fall 06/11/2024 : [facility]- spine/R shoulder/B rain: negative Pain of bi lateral hip joints 2422754196 4374272 M25.551 M25.552 Hany Ling PA: 04/03/[address] Sherrill ibarra obstruction 178526380 K56.609 S/p d/c, from [facility] 02/04/2024 , s/p surgery, states 07/14/2024 is doing well Liver enzy mes level above reference range 802396277 R74.01 Get US liver, get hepatitis panel and GGT 01/27/2025 : US liver, GB mass, this was closed out as a case discussed as per [facility]green on 02/11/2025 but this was not discussedN ow will refer to GI/G surgery Skin lesion 22413225 L98 .9 Small pea shaped, non tender, mobile swelling at the posterior scalp, likely lipoma, it was decided to not to get it removed Gallbladder mass 7864034 001 27600 K82.8 01/27/2025 : US liver, GB mass, this was closed out as a case discussed as per fgreen on 02/11/2025 but this was not discussedN ow will refer to GI/G surgery Chronic ki dney disease 425816698 N18.9 Refer to nephrology Health Concerns Section Related Observation LastModified by Organization Detai ls LastModified Time None Recorded Concern Status LastModified by Organization Details LastModified Time None Recorded Advance Directives Directive Y: Payers Encounter Date Sequence Insurance Name Policy Number Policy Eugene Covered Member ID Eugene Member ID Guarantor Name 07/14/2024 1 [facility] [employer] (MEDICARE REPLACEMENT/A DVANTAGE - PPO) [id number] Gene Yen [id number] Gene Yen 10/22/2024 1 [facility] [employer] (MEDICARE REPLACEMENT/A DVANTAGE - PPO) [id number] Gene Yen [id number] Gene Yen 11/19/2024 1 [facility] (MEDICARE REPLACEMENT/A DVANTAGE - PPO) [id number] Gene Weaverson [id number] Gene Weaverson 01/21/2025 1 [facility] (MEDICARE REPLACEMENT/A DVANTAGE - PPO) [id number] Gene Weaverson [id number] Gene Weaverson 04/06/2025 1 [facility] (MEDICARE REPLACEMENT/A DVANTAGE - PPO) [id number] Gene Weaverson [id number] Gene Yen Notes Date Note Type Note Provider Name and Address Organization Details Recorded Time 07/14/2024 text/html OV 12/06/2022:He re to establish careDcst Hx:GoutDMIIHLHua emiaOAReviewed social family and surgical historyHere with [...] in the ER Jacinto Velasquez MD [address], [place], [address], [place] [facility] 07/14/2024 18:21:50 10/22/2024 text/html OV 12/06/2022:[facility]x:GoutDMIIHLDEDAn emiaOAReviewed social family and surgical historyHere [...] no other complaints Jacinto Velasquez MD [address], [place], [address], [place] [facility] 10/22/2024 12:32:35 11/19/2024 text/html OV 12/06/2022:He re to establish careDcst Hx:ClaudiaIIMichaelle emiaOAReviewed social family and surgical historyHere with [...] like symptoms, but then was diagnosed with LA s/p cath, 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 and needs to see cardiology Jacinto Velasquez MD [address], [place], [address], [place] [facility] 11/19/2024 18:08:30 01/21/2025 text/html OV 12/06/2022:He re to establish carePast Hx:JovanDMIIMichaelle emiaOAReviewed social family and surgical historyHere with [...] like symptoms, but then was diagnosed with LA s/p cath, 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 and needs to see cardiology OV 01/21/2025: Here for his f/u apt, he feels well today, here with his Jacinto Velasquez MD [address], [address], [place], [address], [place] [facility] 01/21/2025 11:26:49 04/06/2025 text/html OV 12/06/2022:He re to establish carePast Hx:JovanDMIIMichaelle emiaOAReviewed social family and surgical historyHere with [...] like symptoms, but then was diagnosed with LA s/p cath, 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
--- OUTSIDE RECORDS SUMMARY | 2025-04-13 09:48 | XMS_ITS ---
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) Active confirmed Problem Proteinuria, unspecified (R80.9) Active confirmed Problem Coronary artery disease (95532793) CAD (coronary artery disease) (I25.10) Active confirmed Problem Metabolic disorder (33992244) Metabolic disorder, unspecified (E88.9) Active confirmed Problem 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 I23.1 and Anemia, unspecified D64.9 Assessments Encounter Date Diagnosis (ICD Code) Assessment Notes Treatment Notes Treatment Clinical Notes Section Notes 04/10/2025 Chronic kidney disease, stage 2 (mild) (ICD-10 - N18.2) 04/10/2025 Proteinuria, unspecified (ICD-10 - R80.9) 04/10/2025 CAD (coronary artery disease) (ICD-10 - I25.10) 04/10/2025 Metabolic disorder, unspecified (ICD-10 - E88.9) 04/10/2025 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 :1935 A ge:89 Y S ex:Male Date:04/10/2025 Address:[address] [place], [place] [id number] Subjective: * Chief Complaints: * * Medical History: Objective: * Vitals: Assessment: * Assessment: 1. C hronic kidney disease, stage 2 (mild) - N18.2 (Primary) 2 . P roteinuria, unspecified - R80.9 3 . C AD (coronary artery disease) - I25.10 ?4. M etabolic disorder, unspecified - E88.9 5 . A trial septal defect as current complication following acute myocardial infarction - I23.1 6 . A nemia, unspecified - D64.9 Plan: * Treatment: * Billing Information: * Visit Code: 64874 Office Visit, New Pt., Level 5. * Procedure Codes: * Electronic signature of Gayla Granda MD on 04/13/2025 at 08:27 AM CDT Sign off status: Pending * Provider: Lizzie LANDERS MD, F.A.C.P, F.A.S.N. Date: 04/10/2025 Generated for Printing/Faxing/eTransmitting on: 04/13/2025 08:27 AM CDT
--- OUTSIDE RECORDS SUMMARY | 2025-04-13 09:48 | XMS_ITS | Encounter Summary ---
Author Name [facility] Address [address] [place] [address] Care Team Providers Care Consulting Business Developer Name Role Phone KALEEANNIE GEE Primary Care [...] PART B Jan 04, 2004 PART B [id number] [phone] ESAZULEMAVILMA OCHOA PATIENT MEDICARE (WNR) MEDICARE (M) PART A Aug 05, 2002 PART A [id number] VILMA LEWIS OCHOA PATIENT Selected Encounter This section includes the information on record at [place] for the Encounter. Date/Time Encounter Type Encounter Description Reason Provider Source Oct 30, 2024 02:10 PM Outpatient Encounter ADMIN PAT ACTIVTIES (MASNONCT) MATI BISHOP Encounter Template Text not used by [place] Plan of Treatment: Future Appointments (+ 6 months) and Future Tests (+/- 45 days) The Plan of Treatment section includes future care activities for the patient from all [place] treatmentfacilities. This section includes future appointments and future orders which are active, pending or scheduled. Future Appointments This section includes appointments that were scheduled to occur 6 months from the date of the Encounter, up to a maximum of 20 appointments. The data comes from all [place] treatment facilities. Appointment Date/Time Appointment Type Appointme nt Facility Name Nov 27, 2024 01:00 PM [facility] - [facility] Feb 13, 2025 02:00 PM [facility] Encounter Notes: All associated encounter notes [...] STATUS: COMPLETED Test call has been completed. [place] may now be scheduled for [facility] appointment. No data available for: V15 Current Email Address Phone number: Enter correct contact number,if not same as above SAME ABOVE /cristiane/ MATI BISHOP Telehealth Clinical Compliance Aide Signed: 10/30/2024 14:11 MATI BISHOP [facility]
--- OUTSIDE RECORDS SUMMARY | 2025-04-13 09:48 | XMS_ITS | Continuity of Care Document ---
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 It does not include entries that were removed or entered in error. Problem Status Onset Date Problem Type Date of Resolution Comments Source Anemia ([facility] [id number]) Active Condition [facility] Diabetes Mellitus Type 2 ([facility] [id number]) Active Condition [facility] GERD - Gastro-Esophageal Reflux Disease ([facility] [id number]) Active Condition [facility] Gout ([facility] [id number]) Active Condition [facility] History of gastric ulcer Active Condition [facility] Hyperlipidemia ([facility] [id number]) Active Condition [facility] Low Back Pain ([facility] [id number]) Active Condition [facility] Paroxysmal atrial fibrillation Active Condition [facility] Past history of procedure Active Condition March 18, 2020 Entered By: KEI VALLES Comment: 2005 appendectomyMay 2019 Entered By: KEI VALLES Comment: 09/2003 right knee patellar tendon surgery with hardware placementMay 2019 Entered By: KEI VALLES Comment: 2018 bilateral eye cataract surgery [facility] Vitamin D Deficiency ([facility] [id number]) Active Condition [facility] Diagnosis: ICD-10-CM E11.9 Type 2 diabetes mellitus without complications Active Diagnosis [facility] Diagnosis: ICD-10-CM Z74.1 Need for assistance with personal care Active Diagnosis [facility] Diagnosis: ICD-10-CM I48.0 Paroxysmal atrial fibrillation Active Diagnosis [facility] Diagnosis: ICD-10-CM Z65.9 Problem related to unspecified psychosocial circumstances Active Diagnosis [facility] Diagnosis: ICD-10-CM E44.0 Moderate protein-calorie malnutrition Active Diagnosis [facility] Diagnosis: ICD-10-CM Z13.9 Encounter for screening, unspecified Active Diagnosis [facility] Diagnosis: ICD-10-CM Z55.9 Problems related to education and literacy, unspecified Active Diagnosis [facility] Medications Combined list of outpatient [...] A DAY ORAL ACTIVE PACE,VICT OR 2019 [facility] ASPIRIN 81MG TAB,CHEWABL E CHEW AND SWALLOW ONE TABLET BY MOUTH ONCE A DAY ORAL ACTIVE PACE,VICT OR M 2019 [facility] DAPAGLIFLOZ IN 10MG TAB TAKE ONE TABLET BY MOUTH ONCE A DAY ORAL ACTIVE ME OLMAN TTISA 2022 [facility] DILTIAZEM (EQV-TIAZAC AB4) 120MG 24HR CAP TAKE 1 CAPSULE BY MOUTH EVERY MORNING BEFORE A MEAL ORAL ACTIVE ME OLMAN TTISA 2023 [facility] FERROUS SO4 325MG TAB TAKE ONE TABLET BY MOUTH ONCE A DAY ORAL ACTIVE PACE,VICT OR M 2019 [facility] FOLIC ACID 1MG TAB TAKE ONE TABLET BY MOUTH ONCE A DAY ORAL ACTIVE PACE,VICT OR M 2020 [facility] GLUCERNA SHAKE LIQUID STRAWBERRY TAKE 1 CANFUL BY MOUTH TWICE A DAY FOR NUTRITIO N/DIETAR Y SUPPLEME NTATION ([place]) ORAL ACTIVE 10/18/2025 [id number] BLAKE OSPINA 2024 48 [facility] GLUCERNA SHAKE LIQUID STRAWBERRY TAKE 1 CANFUL BY MOUTH TWICE A DAY FOR NUTRITIO N/DIETAR Y SUPPLEME NTATION ([place]) ORAL DISCONT INUED BY KAITLYN R 11/13/2024 [id number] BLAKE OSPINA 2023 48 [facility] GLUCERNA THERAPEUTIC NUTRITION SHAKE LIQUID STRAWBERRY TAKE 1 CANFUL BY MOUTH TWICE A DAY FOR NUTRITIO N/DIETAR Y SUPPLEME NTATION ([place]) ORAL DISCONT INUED 02/25/2025 [id number] BLAKE OSPINA Guille 2023 48 [facility] GLUCERNA THERAPEUTIC NUTRITION SHAKE LIQUID STRAWBERRY TAKE 1 CANFUL BY MOUTH TWICE A DAY FOR NUTRITIO N/DIETAR Y SUPPLEME NTATION ([place]) ORAL DISCONT INUED 02/25/2025 [id number] 4 BLAKE OSPINA Guille 2023 48 [facility] GLUCOSAMINE CAP/TAB TAKE 2 CAPSULES BY MOUTH TWICE A DAY ORAL ACTIVE PACE,VICT OR 2019 [facility] METFORMIN HCL 1000MG TAB TAKE ONE TABLET BY MOUTH TWICE A DAY WITH MEALS ORAL ACTIVE PACE,VICT OR 2019 [facility] METOPROLOL SUCCINATE 100MG TAB,SA TAKE ONE-HALF TABLET BY MOUTH ONCE A DAY ORAL ACTIVE JANICE SOLORIO 2024 [facility] NON-FORMULA RY TAB TAKE GLUCOCIL 1 TABLET OTC BY MOUTH ONCE A DAY ORAL ACTIVE PACE,VICT OR 2019 [facility] OMEPRAZOLE 20MG CAP,EC TAKE 1 CAPSULE BY MOUTH EVERY MORNING BEFORE A MEAL ORAL ACTIVE PACE,VICT OR 2019 [facility] RANOLAZINE 500MG TAB,SA TAKE ONE TABLET BY MOUTH TWICE A DAY ORAL ACTIVE THURMAN,ME TTISA 2023 [facility] SIMVASTATIN TAB TAKE ONE TABLET BY MOUTH EVERY EVENING ORAL ACTIVE PACE,VICT OR 2019 [facility] Allergies, Adverse Reactions, Alerts Combined list of allergies from Department of Defense and Veterans Affairs facilities. It does not include entries that were removed or entered in error. Substance Category Reaction Severity Reaction type Status Date Reported Comments Source LISINOPRIL Propensity to adverse reactions to drug (finding) Cough active 0 [facility] Immunizations Combined list of available immunizations from the Department of Defense and Veterans Affairs facilities. 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 Surgical Appliances Status Comments Source INFLUENZA, HIGH-DOSE, TRIVALENT, PF 1 2023 135 complet ed HISTORICA L INFORMATI ON - FROM OTHER REGISTRY, [facility] COVID-19 ([employer]), MRNA, LNP-S, PF, ANNIE-SUCROSE, 30 MCG/0.3 ML (AGES 12+ YEARS) 6 2023 309 complet ed HISTORICA L INFORMATI ON - FROM OTHER REGISTRY, [facility] COVID-19 ([employer]), MRNA, LNP-S, PF, ANNIE-SUCROSE, 30 MCG/0.3 ML (AGES 12+ YEARS) 1 2023 309 complet ed HISTORICA L INFORMATI ON - FROM PATIENT'S WRITTEN RECORD, [facility] RSV, RECOMBINANT, PROTEIN SUBUNIT RSVPREF, ADJUVANT RECONSTITUTED , 0.5 ML, PF 1 2023 303 complet ed HISTORICA L INFORMATI ON - FROM OTHER REGISTRY, [facility] COVID-19 ([employer]), MRNA, LNP-S, PF, ANNIE-SUCROSE, 30 MCG/0.3 ML (AGES 12+ YEARS) 5 2022 309 complet ed HISTORICA L INFORMATI ON - FROM OTHER REGISTRY, [facility] N INFLUENZA, UNSPECIFIED FORMULATION 2022 88 complet ed Completed Series, HISTORICA L INFORMATI ON - FROM PATIENT'S RECALL, [facility] N PNEUMOCOCCAL POLYSACCHARID E PPV23 2022 33 complet ed Completed Series, HISTORICA L INFORMATI ON - FROM PATIENT'S WRITTEN RECORD, [facility] N RESPIRATORY SYNCYTIAL VIRUS (RSV) VACCINE, UNSPECIFIED 2022 314 complet ed Completed Series, HISTORICA L INFORMATI ON - FROM PATIENT'S WRITTEN RECORD, [facility] (MODERNA), MRNA, LNP-S, BIVALENT BOOSTER, PF, 50 MCG/0.5 ML OR 25MCG/0.25 ML DOSE 1 2021 INDER MENA LEFT DELTO ID [id number] 229 complet ed ADMINISTE [place] AT [place], [facility] PNEUMOCOCCAL CONJUGATE PCV20, POLYSACCHARID E [id number] CONJUGATE, ADJUVANT, PF 2021 INDER MENA LEFT DELTO ID [id number] 216 complet ed Completed Series, ADMINISTE RED AT [facility] INFLUENZA, HIGH-DOSE, QUADRIVALENT 5 2021 197 complet ed HISTORICA L INFORMATI ON - FROM OTHER REGISTRY, [facility] N INFLUENZA, UNSPECIFIED FORMULATION 2021 88 complet ed Completed Series, HISTORICA L INFORMATI ON - FROM PARENT'S WRITTEN RECORD, [facility] N COVID-19 (MODERNA), MRNA, LNP-S, PF, 100 MCG/0.5ML DOSE OR 50 MCG/0.25ML DOSE 4 2021 NONE 207 complet ed MOD; [id number]; 2 [facility] ZOSTER RECOMBINANT 2 2021 NONE 187 complet ed [facility] COVID-19 (MODERNA), MRNA, LNP-S, PF, 100 MCG/0.5 ML DOSE 3 2020 207 complet ed [facility] INFLUENZA, HIGH-DOSE, QUADRIVALENT 4 2020 197 complet ed HISTORICA L INFORMATI ON - FROM OTHER REGISTRY, [facility] INFLUENZA, UNSPECIFIED FORMULATION 2020 88 complet ed [facility] TD[facility] 2020 NONE 115 complet ed Completed Series, [facility] ZOSTER RECOMBINANT 1 2020 NONE 187 complet ed [facility] COVID-19 (MODERNA), MRNA, LNP-S, PF, 100 MCG/0.5 ML DOSE 2 2020 207 complet ed [facility] COVID-19 (MODERNA), MRNA, LNP-S, PF, 100 MCG/0.5 ML DOSE 1 2020 207 complet ed [facility] INFLUENZA, HIGH-DOSE, QUADRIVALENT 3 2019 197 complet ed HISTORICA L INFORMATI ON - FROM OTHER [facility], [facility] INFLUENZA, UNSPECIFIED FORMULATION 2019 88 complet ed [facility] INFLUENZA, HIGH DOSE SEASONAL 2 2018 135 complet ed HISTORICA L INFORMATI ON - FROM OTHER REGISTRY, [facility] N PNEUMOCOCCAL CONJUGATE PCV 13 2018 133 complet ed chart review [facility] PNEUMOCOCCAL POLYSACCHARID E PPV23 2018 33 complet ed [facility] INFLUENZA, HIGH DOSE SEASONAL 1 2017 135 complet ed HISTORICA L INFORMATI ON - FROM OTHER REGISTRY, [facility] Results Combined list of recent chemistry, hematology [...] Specimen Type: BLOOD Comment: Test Performed by: [id number] Meter #: [id number] Ordering Provider: JANICE DIAMOND Report Released Date/Time: Feb 13, 2025 03:30 PM Reporting Lab: [facility] [address] [facility] [address] Performing Lab: [facility] [address] [facility] [address] [facility] CBC LEUKOCYTES [#/VOLUME] IN BLOOD BY AUTOMATED COUNT 6.1 10*3/u L 3.6 - 11.2 08/14 Specimen Type: BLOOD No comment entered. Ordering Provider: JANICE DIAMOND Report Released Date/Time: Aug 14, 2024 11:07 AM Reporting Lab: [facility] [address] [place] [phone] Performing Lab: [address] [address] [facility] CBC ERYTHROCYTES [#/VOLUME] IN BLOOD BY AUTOMATED COUNT 5.32 10*6/u L 4.10 - 5.70 08/14 Specimen Type: BLOOD No comment entered. Ordering Provider: JANICE DIAMOND Report Released Date/Time: Aug 14, 2024 11:07 AM Reporting Lab: [address] [address] Performing Lab: [address] [phone] [place] [address] CBC HEMOGLOBIN [MASS/VOLUME ] IN BLOOD 14.4 g/dL 13.1 - 16.8 08/14 Specimen Type: BLOOD No comment entered. Ordering Provider: JANICE DIAMOND Report Released Date/Time: Aug 14, 2024 11:07 AM Reporting Lab: [address] [address] Performing Lab: [address] [phone] [place] [address] CBC HEMATOCRIT [VOLUME FRACTION] OF BLOOD 46.7 38.2 - 48.4 08/14 Specimen Type: BLOOD No comment entered. Ordering Provider: JANICE DIAMOND Report Released Date/Time: Aug 14, 2024 11:07 AM Reporting Lab: [facility] [address] [place] [phone] Performing Lab: [address] [address] [facility] CBC MCV [ENTITIC VOLUME] BY AUTOMATED COUNT 87.8 fL 80.0 - 100.0 08/14 Specimen Type: BLOOD No comment entered. Ordering Provider: JANICE DIAMOND Report Released Date/Time: Aug 14, 2024 11:07 AM Reporting Lab: [facility] [address] [place] [phone] Performing Lab: [facility] [address] [place] [phone] [facility] CBC MCH [ENTITIC MASS] BY AUTOMATED COUNT 27.1 pg 27.0 - 34.0 08/14 Specimen Type: BLOOD No comment entered. Ordering Provider: JANICE DIAMOND Report Released Date/Time: Aug 14, 2024 11:07 AM Reporting Lab: [address] [address] Performing Lab: [address] [address] [facility] CBC MCHC [MASS/VOLUME ] BY AUTOMATED COUNT 30.8 g/dL 33.0 - 36.0 08/14 L Specimen Type: BLOOD No comment entered. Ordering Provider: JANICE DIAMOND Report Released Date/Time: Aug 14, 2024 11:07 AM Reporting Lab: [address] [phone] Performing Lab: [address] [address] [facility] CBC PLATELETS [#/VOLUME] IN BLOOD BY AUTOMATED COUNT 221 10*3/u L 150 - 400 08/14 Specimen Type: BLOOD No comment entered. Ordering Provider: JANICE DIAMOND Report Released Date/Time: Aug 14, 2024 11:07 AM Reporting Lab: [facility] [address] [place] [phone] Performing Lab: [address] [address] [facility] CBC PLATELET MEAN VOLUME [ENTITIC VOLUME] IN BLOOD BY AUTOMATED COUNT 11.8 fL 7.5 - 11.2 08/14 H Specimen Type: BLOOD No comment entered. Ordering Provider: JANICE DIAMOND Report Released Date/Time: Aug 14, 2024 11:07 AM Reporting Lab: [address] [address] Performing Lab: [facility] [address] [facility] [address] [facility] CBC ERYTHROCYTE DISTRIBUTION WIDTH [RATIO] BY AUTOMATED COUNT 15.2 11.8 - 15.1 08/14 H Specimen Type: BLOOD No comment entered. Ordering Provider: JANICE DIAMOND Report Released Date/Time: Aug 14, 2024 11:07 AM Reporting Lab: [facility] [address] [facility] [address] Performing Lab: [facility] [address] [facility] [address] [facility] CBC LYMPHOCYTES/ 100 LEUKOCYTES IN BLOOD BY AUTOMATED COUNT 23 08/14 Specimen Type: BLOOD No comment entered. Ordering Provider: JANICE DIAMOND Report Released Date/Time: Aug 14, 2024 11:07 AM Reporting Lab: [facility] [address] [facility] [address] Performing Lab: [facility] [address] [facility] [address] [facility] CBC MONOCYTES/10 0 LEUKOCYTES IN BLOOD BY AUTOMATED COUNT 11 08/14 Specimen Type: BLOOD No comment entered. Ordering Provider: JANICE DIAMOND Report Released Date/Time: Aug 14, 2024 11:07 AM Reporting Lab: [facility] [address] [facility] [address] Performing Lab: [facility] [address] [place] [address] [facility] CBC NEUTROPHILS/ 100 LEUKOCYTES IN BLOOD BY AUTOMATED COUNT 61 08/14 Specimen Type: BLOOD No comment entered. Ordering Provider: JANICE DIAMOND Report Released Date/Time: Aug 14, 2024 11:07 AM Reporting Lab: [facility] [address] [facility] [phone] Performing Lab: [facility] [address] [place] [address] [facility] CBC EOSINOPHILS/ 100 LEUKOCYTES IN BLOOD BY AUTOMATED COUNT 4 08/14 Specimen Type: BLOOD No comment entered. Ordering Provider: JANICE DIAMOND Report Released Date/Time: Aug 14, 2024 11:07 AM Reporting Lab: [facility] [address] [place] [address] Performing Lab: [facility] [address] [place] [phone] [facility] CBC BASOPHILS/10 0 LEUKOCYTES IN BLOOD BY AUTOMATED COUNT 1 08/14 Specimen Type: BLOOD No comment entered. Ordering Provider: JANICE DIAMOND Report Released Date/Time: Aug 14, 2024 11:07 AM Reporting Lab: [facility] [address] [place] [phone] Performing Lab: [address] [phone] [place] [address] CBC LYMPHOCYTES [#/VOLUME] IN BLOOD BY AUTOMATED COUNT 1.43 10*3/u L 0.77 - 4.50 08/14 Specimen Type: BLOOD No comment entered. Ordering Provider: JANICE DIAMOND Report Released Date/Time: Aug 14, 2024 11:07 AM Reporting Lab: [facility] [address] [place] [phone] Performing Lab: [facility] [address] [place] [phone] [facility] CBC MONOCYTES [#/VOLUME] IN BLOOD BY AUTOMATED COUNT 0.65 10*3/u L 0.19 - 0.80 08/14 Specimen Type: BLOOD No comment entered. Ordering Provider: JANICE DIAMOND Report Released Date/Time: Aug 14, 2024 11:07 AM Reporting Lab: [facility] [address] [place] [phone] Performing Lab: [facility] [address] [place] [phone] [facility] CBC NEUTROPHILS [#/VOLUME] IN BLOOD BY AUTOMATED COUNT 3.71 10*3/u L 2.10 - 8.00 08/14 Specimen Type: BLOOD No comment entered. Ordering Provider: JANICE DIAMOND Report Released Date/Time: Aug 14, 2024 11:07 AM Reporting Lab: [facility] [address] [place] [phone] Performing Lab: [address] [phone] [place] [address] CBC EOSINOPHILS [#/VOLUME] IN BLOOD BY AUTOMATED COUNT 0.25 10*3/u L 0.00 - 0.60 08/14 Specimen Type: BLOOD No comment entered. Ordering Provider: JANICE DIAMOND Report Released Date/Time: Aug 14, 2024 11:07 AM Reporting Lab: [address] [address] Performing Lab: [address] [phone] [place] [address] CBC BASOPHILS [#/VOLUME] IN BLOOD BY AUTOMATED COUNT 0.07 10*3/u L 0.00 - 0.20 08/14 Specimen Type: BLOOD No comment entered. Ordering Provider: JANICE DIAMOND Report Released Date/Time: Aug 14, 2024 11:07 AM Reporting Lab: [address] [address] Performing Lab: [address] [phone] [place] [address] COMPREHENSI VE METABOLIC PANEL CREATININE [MASS/VOLUME ] IN SERUM OR PLASMA 1.15 mg/dL 0.7 - 1.3 08/14 Specimen Type: PLASMA Comment: No hemolysis noted. Ordering Provider: JANICE DIAMOND Report Released Date/Time: Aug 14, 2024 11:07 AM Reporting Lab: [address] [address] Performing Lab: [address] [address] [facility] COMPREHENSI VE METABOLIC PANEL UREA NITROGEN [MASS/VOLUME ] IN SERUM OR PLASMA 19.7 mg/dL 9.0 - 25.0 08/14 Specimen Type: PLASMA Comment: No hemolysis noted. Ordering Provider: JANICE DIAMOND Report Released Date/Time: Aug 14, 2024 11:07 AM Reporting Lab: [address] [address] Performing Lab: [address] [phone] [place] [address] COMPREHENSI VE METABOLIC PANEL GLUCOSE [MASS/VOLUME ] IN SERUM OR PLASMA 123 mg/dL 72 - 99 08/14 H Specimen Type: PLASMA Comment: No hemolysis noted. Ordering Provider: JANICE DIAMOND Report Released Date/Time: Aug 14, 2024 11:07 AM Reporting Lab: [address] [address] Performing Lab: [address] [phone] [place] [address] COMPREHENSI VE METABOLIC PANEL SODIUM [MOLES/VOLUM E] IN SERUM OR PLASMA 139 meq/L 136 - 145 08/14 Specimen Type: PLASMA Comment: No hemolysis noted. Ordering Provider: JANICE DIAMOND Report Released Date/Time: Aug 14, 2024 11:07 AM Reporting Lab: [address] [address] Performing Lab: [address] [phone] [place] [address] COMPREHENSI VE METABOLIC PANEL POTASSIUM [MOLES/VOLUM E] IN SERUM OR PLASMA 4.7 meq/L 3.5 - 5 08/14 Specimen Type: PLASMA Comment: No hemolysis noted. Ordering Provider: JANICE DIAMOND Report Released Date/Time: Aug 14, 2024 11:07 AM Reporting Lab: [address] [address] Performing Lab: [address] [place] [address] [facility] COMPREHENSI VE METABOLIC PANEL CHLORIDE [MOLES/VOLUM E] IN SERUM OR PLASMA 102 meq/L 98 - 107 08/14 Specimen Type: PLASMA Comment: No hemolysis noted. Ordering Provider: JANICE DIAMOND Report Released Date/Time: Aug 14, 2024 11:07 AM Reporting Lab: [address] [address] Performing Lab: [place] [address] [facility] [address] [facility] COMPREHENSI VE METABOLIC PANEL CARBON DIOXIDE, TOTAL [MOLES/VOLUM E] IN SERUM OR PLASMA 24 meq/L 22 - 31 08/14 Specimen Type: PLASMA Comment: No hemolysis noted. Ordering Provider: JANICE DIAMOND Report Released Date/Time: Aug 14, 2024 11:07 AM Reporting Lab: [address] [address] Performing Lab: [place] [address] [facility] [address] [facility] COMPREHENSI VE METABOLIC PANEL CALCIUM [MASS/VOLUME ] IN SERUM OR PLASMA 10.6 mg/dL 8.4 - 10.4 08/14 H Specimen Type: PLASMA Comment: No hemolysis noted. Ordering Provider: JANICE DIAMOND Report Released Date/Time: Aug 14, 2024 11:07 AM Reporting Lab: [facility] [address] [place] [phone] Performing Lab: [address] [address] [facility] COMPREHENSI VE METABOLIC PANEL PROTEIN [MASS/VOLUME ] IN SERUM OR PLASMA 7.7 g/dL 6 - 8.6 08/14 Specimen Type: PLASMA Comment: No hemolysis noted. Ordering Provider: JANICE DIAMOND Report Released Date/Time: Aug 14, 2024 11:07 AM Reporting Lab: [facility] [address] [place], [place] [phone] Performing Lab: [facility] [address] [facility] [address] [facility] COMPREHENSI VE METABOLIC PANEL ALBUMIN [MASS/VOLUME ] IN SERUM OR PLASMA 4.5 g/dL 3.4 - 5 08/14 Specimen Type: PLASMA Comment: No hemolysis noted. Ordering Provider: JANICE DIAMOND Report Released Date/Time: Aug 14, 2024 11:07 AM Reporting Lab: [facility] [address] [place] [phone] Performing Lab: [address] [address] [facility] COMPREHENSI VE METABOLIC PANEL BILIRUBIN.TO CAREY [MASS/VOLUME ] IN SERUM OR PLASMA 0.6 mg/dL 0.2 - 1.2 08/14 Specimen Type: PLASMA Comment: No hemolysis noted. Ordering Provider: JANICE DIAMOND Report Released Date/Time: Aug 14, 2024 11:07 AM Reporting Lab: [address] [address] Performing Lab: [address] [address] [facility] COMPREHENSI VE METABOLIC PANEL ALKALINE PHOSPHATASE [ENZYMATIC ACTIVITY/VOL UME] IN SERUM OR PLASMA 58 U/L 40 - 150 08/14 Specimen Type: PLASMA Comment: No hemolysis noted. Ordering Provider: JANICE DIAMOND Report Released Date/Time: Aug 14, 2024 11:07 AM Reporting Lab: [facility] [address] [place] [phone] Performing Lab: [facility] [address] [place] [phone] [facility] COMPREHENSI VE METABOLIC PANEL ASPARTATE AMINOTRANSFE RASE [ENZYMATIC ACTIVITY/VOL UME] IN SERUM OR PLASMA 15 U/L 5 - 34 08/14 Specimen Type: PLASMA Comment: No hemolysis noted. Ordering Provider: JANICE DIAMOND Report Released Date/Time: Aug 14, 2024 11:07 AM Reporting Lab: [facility] [address] [facility] [phone] Performing Lab: [facility] [address] [place] [address] [phone] [place] [address] COMPREHENSI VE METABOLIC PANEL ALANINE AMINOTRANSFE RASE [ENZYMATIC ACTIVITY/VOL UME] IN SERUM OR PLASMA 16 U/L 8 - 40 08/14 Specimen Type: PLASMA Comment: No hemolysis noted. Ordering Provider: JANICE DIAMOND Report Released Date/Time: Aug 14, 2024 11:07 AM Reporting Lab: [address] [phone] Performing Lab: [phone] [place] [address] COMPREHENSI VE METABOLIC PANEL GLOMERULAR FILTRATION RATE/1.73 SQ M.PREDICTED [VOLUME RATE/AREA] IN SERUM, PLASMA OR BLOOD BY CREATININE-B ASED FORMULA (CKD-EPI 2020) 62.0 60 08/14 Specimen Type: PLASMA Comment: No hemolysis noted. Ordering Provider: JANICE DIAMOND Report Released Date/Time: Aug 14, 2024 11:07 AM Reporting Lab: [facility] [address] [place] [phone] Performing Lab: [address] [id number] [place] [address] HGA1C HEMOGLOBIN A1C/HEMOGLOB IN.TOTAL IN BLOOD 6.9 4.0 - 6.0 08/14 H Specimen Type: BLOOD No comment entered. Ordering Provider: JANICE DIAMOND Report Released Date/Time: Aug 14, 2024 11:07 AM Reporting Lab: [facility] [address] [place] [phone] Performing Lab: [facility] [address] [place] [phone] [facility] LIPID PANEL (STL) CHOLESTEROL [MASS/VOLUME ] IN SERUM OR PLASMA 168 mg/dL 0 - 200 10/10 /2024 Specimen Type: PLASMA Comment: No hemolysis noted. Ordering Provider: JANICE DIAMOND Report Released Date/Time: Aug 14, 2024 11:07 AM Reporting Lab: [facility] [address] [facility] [phone] Performing Lab: [facility] [address] [place] [phone] [facility] LIPID PANEL (STL) TRIGLYCERIDE [MASS/VOLUME ] IN SERUM OR PLASMA 79 mg/dL 0 - 150 08/14 Specimen Type: PLASMA Comment: No hemolysis noted. Ordering Provider: JANICE DIAMOND Report Released Date/Time: Aug 14, 2024 11:07 AM Reporting Lab: [facility] [address] [place] [phone] Performing Lab: [address] [phone] [facility] LIPID PANEL (STL) CHOLESTEROL IN LDL [MASS/VOLUME ] IN SERUM OR PLASMA BY CALCULATION 80 mg/dL 08/14 Specimen Type: PLASMA Comment: No hemolysis noted. Ordering Provider: JANICE DIAMOND Report Released Date/Time: Aug 14, 2024 11:07 AM Reporting Lab: [facility] [address] [place] [phone] Performing Lab: [facility] [address] [place] [phone] [facility] LIPID PANEL (STL) CHOLESTEROL IN HDL [MASS/VOLUME ] IN SERUM OR PLASMA 72 mg/dL 40 08/14 Specimen Type: PLASMA Comment: No hemolysis noted. Ordering Provider: JANICE DIAMOND Report Released Date/Time: Aug 14, 2024 11:07 AM Reporting Lab: [facility] [address] [place] [phone] Performing Lab: [facility] [address] [place] [phone] [facility] TSH (MA-PB) THYROTROPIN [UNITS/VOLUM E] IN SERUM OR PLASMA 3.238 u[IU]/ mL 0.47 - 5 08/14 Specimen Type: SERUM No comment entered. Ordering Provider: JANICE DIAMOND Report Released Date/Time: Aug 14, 2024 11:07 AM Reporting Lab: [place] [address] Performing Lab: [address] VITAMIN D, 25-HYDROXY 25-HYDROXYVI TAMIN D3 [MASS/VOLUME ] IN SERUM OR PLASMA 47.5 ng/mL 30 - 96 08/14 Specimen Type: SERUM No comment entered. Ordering Provider: JANICE DIAMOND Report Released Date/Time: Aug 14, 2024 11:07 AM Reporting Lab: [place] [phone] Performing Lab: [place] [address] [place] [address] GLUCOSE,BLO OD-poct (STL) GLUCOSE [MASS/VOLUME ] IN BLOOD BY AUTOMATED TEST STRIP 118 mg/dL 72 - 99 08/14 H Specimen Type: BLOOD Comment: Test Performed by: [id number] Meter #: [id number] Ordering Provider: JANICE DIAMOND Report Released Date/Time: Aug 14, 2024 03:30 PM Reporting Lab: [address] [phone] Performing Lab: [address] [address] [facility] HGA1C HEMOGLOBIN A1C/HEMOGLOB IN.TOTAL IN BLOOD 7.0 4.0 - 6.0 05/23 H Specimen Type: BLOOD No comment entered. Ordering Provider: MET EVIE THURMAN Report Released Date/Time: May 23, 2024 10:03 AM Reporting Lab: [place] [address] Performing Lab: [address] [place] [address] [facility] VITAMIN D, 25-HYDROXY 25-HYDROXYVI TAMIN D3 [MASS/VOLUME ] IN SERUM OR PLASMA 41.5 ng/mL 30 - 96 05/23 Specimen Type: SERUM No comment entered. Ordering Provider: MET EVIE THURMAN Report Released Date/Time: May 23, 2024 09:39 AM Reporting Lab: [facility] [address] [place] [phone] Performing Lab: [address] [phone] [facility] Vital Signs Combined list of inpatient and outpatient Vital Signs from Department of Defense and Veterans Affairs, ranging from 12 months to all on record, depending upon the facility. Vital Sign Value Date Comments Source SYSTOLIC BLOOD PRESSURE 113 02/13/2025 13:47:43 [facility] DIASTOLIC BLOOD PRESSURE 63 02/13/2025 13:47:[facility] 99 02/13/2025 13:47:43 [facility] WEIGHT 160 02/13/2025 13:47:43 [facility] BMI 21 kg/m2 02/13/2025 13:47:43 [facility] PAIN 0 02/13/2025 13:47:43 [facility] TEMPERATURE 97.7 02/13/2025 13:47:43 [facility] PULSE 65 02/13/2025 13:47:43 [facility] RESPIRATION 20 02/13/2025 13:47:43 [facility] SYSTOLIC BLOOD PRESSURE 102 08/14/2024 10:41:43 [facility] DIASTOLIC BLOOD PRESSURE 60 08/14/2024 10:41:[address] [facility] [facility] PULSE OXIMETRY 97 08/14/2024 10:41:43 S [facility] WEIGHT 157 08/14/2024 10:41:43 [facility] BMI 21 kg/m2 08/14/2024 10:41:43 [facility] PAIN 0 08/14/2024 10:41:43 [facility] HEIGHT 73 08/14/2024 10:41:43 [facility] TEMPERATURE 97.5 08/14/2024 10:41:43 [facility] PULSE 70 08/14/2024 10:41:43 [facility] RESPIRATION 18 08/14/2024 10:41:[address] [facility] WEIGHT 160 05/23/2024 09:12:28 . [facility] BMI 21 kg/m2 05/23/2024 09:12:28 [facility] Encounters Combined list of: 1) Encounters from Department of [facility] Affairs facilities going backup to the last 18 months, not all [place] inpatient encounters are included; 2) Encounters from the Department of [facility] facilities going backup to 280 months. Location Location Details Encounter Type Encounter Number Reason For Visit Attending Provider ADM Date DC Date Status Disposition Source [facility] Outpatient Encounter [id number] 11/22 [facility] Outpatient Encounter [id number] 12/07 [facility] Outpatient Encounter [id number] 12/07 [facility] Outpatient Encounter [id number] CEZAR MENA M 12/21 [facility] FUNDUS PHOTOGRAPH Y W/I&R [id number] Diagnos is: ICD-10- CM Z13.9 Encount er for screeni ng, unspeci fied EMMANUEL VINSON 12/25 [facility] Outpatient Encounter [id number] Diagnos is: ICD-10- CM Z55.9 Problem s related to educati on and literac y, unspeci fied AFSHAN VINSONDY 12/25 [facility] OFFICE O/P EST MOD 30 MIN [id number] Diagnos is: ICD-10- CM E11.9 Type 2 diabete s mellitu s without complic ations THURMAN,MET EVIE 12/25 [facility] IMG RTA DETC/MNTR DS PHY/QHP [id number] Diagnos is: ICD-10- CM Z13.9 Encount er for screeni ng, unspeci fipaco CHRISTOPHERMayi,KR ISSOFÍA JIMENESE 12/25 [facility] Outpatient Encounter [id number] ALISSONEMMANUEL 12/26 [facility] Outpatient Encounter [id number] 02/03 [facility] [place] [id number] Diagnos is: ICD-10- CM 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 Outpatient Encounter [id number] 08/11 [facility] Outpatient Encounter [id number] CEZAR MENA M 08/13 [facility] OFFICE O/P EST MOD 30 MIN [id number] Diagnos is: ICD-10- CM I48.0 Paroxys mal atrial fibrill ation JANICE DIAMOND 08/14 [facility] Outpatient Encounter [id number] 08/21 [facility] Outpatient Encounter [id number] 10/15 [facility] Outpatient Encounter [id number] 10/15 [facility] Outpatient Encounter [id number] DICK DAS M 10/16 [facility] HC PRO PHONE CALL 21-30 MIN [id number] Diagnos is: ICD-10- CM Z65.9 Problem related to unspeci fied psychos ocial circums RONEY Coon L 10/20 [facility] HL BHV ASSMT/REAS SESSMENT [id number] Diagnos is: ICD-10- CM I48.0 Paroxys mal atrial fibrill ation JUD BRADSHAW L 10/27 [facility] Outpatient Encounter [id number] 10/27 [facility] Outpatient Encounter [id number] SHOBHA BISHOP Dinorah 10/30 [facility] PROGRAM INTAKE ASSESSMENT [id number] Diagnos is: ICD-10- CM Z74.1 Need for assista nce with WANDER Daugherty 11/27 [facility] Outpatient Encounter [id number] 11/27 [facility] Outpatient Encounter [id number] 12/12 [facility] En[facility] [id number] RONEY BLAIR 12/17 [facility] OFFICE O/P EST MOD 30 MIN [id number] Diagnos is: ICD-10- CM E11.9 Type 2 diabete s mellitu s without complic ations JANICE DIAMOND 02/13 [facility] Outpatient Encounter [id number] 02/19 [facility] Social History Combined list of available smoking, tobacco, and other social history from Department of Defense and Veterans Affairs facilities. Social History Type Response Date Comment Sourc e Tobacco smoking status [place] VA-TOBACCO NEVER USED 08/13/2024 [facility] History of tobacco use [place]-TOBACCO NEVER USED 05/04/2023 [facility] History of tobacco use VA-TOBACCO NEVER USED 03/20/2022 [facility] History of tobacco use [place]-TOBACCO NEVER USED 03/11/2021 [facility] History of tobacco use [place]-TOBACCO NEVER USED 03/04/2020 [facility]
--- OUTSIDE RECORDS SUMMARY | 2025-04-13 09:48 | XMS_ITS | Encounter Summary ---
Author Name [facility] [place] [facility] [place] Organization [facility] [place] Address [address] [place] [address] Care Team Providers Care Chuck Wagon Cook Name Role Phone ANNIE GRANDA Primary Care [...] PART B Jan 04, 2004 PART B [id number] [phone] ESAZULEMAVILMA OCHOA PATIENT MEDICARE (WNR) MEDICARE (M) PART A Aug 05, 2002 PART A [id number] [phone] VILMA LEWIS OCHOA PATIENT Selected Encounter This section includes the information on record at [place] for the Encounter. Date/Time Encounter Type Encounter [...] assistance with personal care NAYELI CORADO Ja [facility] Plan of Treatment: Future Appointments (+ 6 months) and Future Tests (+/- 45 days) The Plan of Treatment section includes future care activities for the patient from all [place] treatmentfacilities. This section includes future appointments and future orders which are active, pending or scheduled. Future Appointments This section includes appointments that were scheduled to occur 6 months from the date of the Encounter, up to a maximum of 20 appointments. The data comes from all [place] treatment facilities. Appointment Date/Time Appointment Type Appointme nt Facility Name Feb 13, 2025 02:00 PM AMBULATORY - MEDICINE [facility] Social History: Smoking Status (Most current) and Tobacco Use (All prior to encounter date) This section includes the most current, and the historical, smoking and tobacco- related health factors from the [place] facility where the Encounter took place. Current Smoking Status This section includes the most current smoking, or tobacco-related health factor, from the [place] facility where the Encounter took place. Date/Time Current Smoking Status Comment Joy ity Aug 13, 2024 04:00 PM VA-TOBACCO NEVER USED [facility] Tobacco Use History This section includes a history of the smoking, or tobacco-related health factors, that were collected on or before the date of the Encounter. The data comes from the [place] facility where the Encounter took place. Date/Time Smoking Status/Tobacco Use Comment F acility May 04, 2023 03:40 PM VA-TOBACCO NEVER USED [facility] March 20, 2022 04:29 PM VA-TOBACCO NEVER USED [facility] March 11, 2021 01:07 PM VA-TOBACCO NEVER USED [facility] Encounter Notes: All associated encounter notes [...] The Functional Assessment Instrument (VFAI) captures the [place] or consulting services associate's functional needs, as they relate to the [...] Location/Surroundings During Visit: Patient location during visit: [place] [address] Others present for visit with patient's consent: [...] in a chair or bed. Comments/additional information: Mendham confirms that he has permanent teeth. Mendham confirms independence with upper body washing, rinsing and drying. Reviewed CPRS records, did not find relevant documentation to support or refute reported information. BATHING (3) Shower/bathe self: Supervision or touching assistance Defined as: The ability to bathe self, including washing, rinsing, and drying self. Does not include transferring in/out of tub/shower. 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 Reviewed CPRS records, did not find [...] on the side of the bed. (7e) Chair/fbb-ur-rivqy transfer: Person does not usually do this [...] and from lying to sitting position independently. Mendham confirms ability to move from sit to stand positions independently with use of walker for support. 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 Mendham reports inability to stand for longer than 3 minutes. reports use of walker or cane. Mendham confirms ability to ambulate up to 10ft with use of walker independently. CG reports that when ammbulating throughout home requires supervision. Mendham lives in bi level home without basement. Mendham reports that he is able to go up/down steps to second level of home with supervision/touching assistance. reports that to get to second level of home there is 6 steps from main level then a landing then 6 more steps. Mendham reports use of cane and rail with supervision to go down steps and reports use of cane and rail with touching assistance (back support) to go up steps. reports supervision to go up/down a curb. Mendham report s that with further distances such [...] CG reports calling pharmacy to request pills. Mendham confirms ability to self check blood glucose [...] Applicant Anel Lewis both actively participated in [facility] appt while sitting side by side at table. Mendham alert and oriented to person, place and [...] that he forgets doctors appts, forgets dates. Mendham reports having to write things down on [...] also confirms ability to go places alone. Mendham reports that he does not drive. Mendham reports that CG manages finances and bills. Reports that CG schedules, manages and keeps track of appts. Reports that CG grocery shops, cooks, cleans, does laundry and housework. CG drives to appts and sit in on appts. Vet does not drive. reports recent hospitalization. Mendham reports that he was admitted to [facility] on 11/07/2024 for symtoms r/t GERD. reports that labs were drawn and findings showed that he was experiencing heart issues. Mendham reports that on 11/10/2024 he had cardiac [...] their health and safety? Yes Comments/additional information: Mendham confirms that he is aware of who providers are and confirms that he has contact information. Mendham confirms ability to place a call to providers to report concerns, issue sor schedule appt. /es/ NAYELI CORADO RN BSN REGISTERED NURSE Signed: 11/27/2024 14:35 Receipt Acknowledged By: 11/27/2024 16:40 /es/ BYRON Sultana, [employer] PROGRAMMER [employer]OTE Asset Card Clerk, Caregiver Support Program NAYELI CORADO [facility]
--- OUTSIDE RECORDS SUMMARY | 2025-04-13 09:48 | XMS_ITS | Patient Health Record ---
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 (927390027) 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 (I23.1) Active confirmed Problem Chronic kidney disease stage 2 (534130584) Chronic kidney disease, stage 2 (mild) (N18.2) Active confirmed Problem Proteinuria (23996997) Proteinuria, unspecified (R80.9) Active confirmed Problem Coronary artery disease (33242109) CAD (coronary artery disease) (I25.10) Active confirmed Encounters Encounter Location Date Provider Diagnosis [place] [facility] [address] [facility] [address] [place] [address] 04/10/2025 Stone Granda Chronic kidney disease, stage [...] Name:Stone Granda , 04/29/2025 02:30:00 PM, [address], [facility] [address], [place], [address],
--- OUTSIDE RECORDS SUMMARY | 2025-04-13 09:48 | XMS_ITS ---
Author Name [facility] [facility] [place] [facility] [place] Address [address] [place] [address] Care Team Providers Care Solderer Dipper Name Role Phone KALEEANNIE GEE Primary Care [...] PART B Jan 04, 2004 PART B [id number] ESAZULEMAVILMA OCHOA PATIENT MEDICARE (WNR) MEDICARE ([place]) PART A Aug 05, 2002 PART A [id number] VILMA LEWIS OCHOA PATIENT Selected Encounter This section includes the information on record at [place] for the Encounter. Date/Time Encounter Type Encounter Description Reason Provider Source Oct 27, 2024 09:00 AM [facility] ASSMT/REASSESSM ENT CAREGIVER SUPPORT PROGRAM ICD-10-CM I48.0 Paroxysmal atrial fibrillation GEORGIA BRADSHAW Encounter Template Text not used by [place] Assessments - Encounter Diagnoses This section includes the primary and secondary diagnoses documented for the Encounter. Date/Time Primary/Secondary Diagnosis Diagnosis Name Provider Source Oct 27, 2024 10:53 AM PRIMARY Paroxysmal atrial fibrillation DELICIA TRIMBLE [facility] Oct 27, 2024 10:53 AM SECONDARY Vertebrogenic low back pain DELICIA TRIMBLE [facility] Plan of Treatment: Future Appointments (+ 6 months) and Future Tests (+/- 45 days) The Plan of Treatment section includes future care activities for the patient from all [place] [facility]. This section includes future appointments and future [...] 27, 2024 01:00 PM AMBULATORY - MEDICINE [facility] Feb 13, 2025 02:00 PM AMBULATORY - MEDICINE [facility] Social History: Smoking Status (Most current) [...] 13, 2024 04:00 PM VA-TOBACCO NEVER USED [facility] Tobacco Use History This section includes a history of the smoking, or tobacco-related health factors, that were collected on or before the date of the Encounter. The data comes from the [place] facility where the Encounter took place. Date/Time Smoking Status/Tobacco Use Comment F acility May 04, 2023 03:40 PM VA-TOBACCO NEVER USED [facility] March 20, 2022 04:29 PM VA-TOBACCO NEVER USED [facility] March 11, 2021 01:07 PM VA-TOBACCO NEVER USED [facility] Encounter Notes: All associated encounter notes [...] reports wanting to learn more about the [place] Alert device for due to his falling. Please follow up, thank you. /es/ BERRY TRIMBLE Sternman, Caregiver Support Program Signed: 10/27/2024 18:20 /es/ GEORGIA BRADSHAW Sternman, Caregiver Support Program Cosigned: 10/30/2024 08:43 Receipt Acknowledged By: 10/31/2024 09:41 /es/ NAIN [facility] NURSE PRACTITIONER 10/31/2024 16:20 /es/ YUVAL DAS, RN, BSN Registered Nurse --- Original Document --- 10/27/24 [facility]ESSMENT: Program of Comprehensive Assistance for Family Caregivers [place] Assessment The Program of Comprehensive Assistance for [...] 1 hour and 10 minutes Identified the [place] using full name and the following other menjivar identifier(s): Full name: ROSEMARY LEWIS Full SSN: [id number] Date of : [birth year] Diagnosis: Paroxysmal atrial fibrillation (SCT [id number]) - Paroxysmal atrial fibrillation (ICD-10-CM I48.0) (Primary) [...] The does not drive independently. When did [place] last drive: reports last driving January 2024. Additional information: [place] reports he was driving some before January [...] barriers. The is not attending school. The [place] is or wishes to pursue enrollment: No SOCIAL HISTORY What does the [place]'s typical day look like? [place] reports they wake up and eat breakfast. He states he walks around downstairs a bit, watches TV, and may walk outside in his yard briefly. He did not expand on a typical day beyond this. What does the [place] do for leisure/relaxation? [place] states he will play Solitaire or chess on the computer. CURRENT PROVIDERS The [place] currently receiving [place] [facility] or [facility]. Provider's name: TITA Diamond The is not currently participating in other [place] programs/services. The is not currently receiving [place] Mental Health or Substance Use treatment. The [place] is not currently receiving care outside of [place]. MEDICAL HISTORY Significant past medical history/treatment: reports [...] reports wanting to learn more about the [place] Alert for Sia due to his falling. The [place] has chronic pain. Pain is primarily located: [place] reports pain from his gastric ulcer, shoulder, and hip (if he walks too much). Expectations for treatment: [place] reports the physical therapy exercises are to strengthen his hip since he cannot have a replacement. Impact of pain on quality of life: [place] reports there are things he can't do [...] The has a typical exercise/activity routine. Details: [place] reports doing the bridge and clam exercises from physical therapy; these are both challenging for him. He states doing them daily. The reports concerns regarding memory and/or cognition. How does this impact [place]'s daily activities? [place] reports having some memory loss and tries to help maintain his memory by playing chess. [place] denies other impacts. The has not had formal testing related to memory/cognition. MENTAL HEALTH/SUBSTANCE USE HISTORY Significant mental health/substance use history/treatment: [place] denies any significant mental health/substance use history/treatment. PHQ-2 A PHQ-2 screen was performed. The score was 0 which is a negative screen for depression. Over the past two weeks, how often have you been bothered by the following problems? 1. Little interest or pleasure in doing things Not at all 2. Feeling down, depressed, or hopeless Not at all [place] Suicide Severity Rating Scale (C-SSRS) screener 1. [...] due to responses to other questions. The [place] reports that there are no current or past concerns regarding IPV domestic violence or safety. The reports currently feeling safe in their home. Current alcohol use: Not at all Current substance use: Not At All Current tobacco use: Not at all [place] has access to opioids: No Other addictive behaviors (i.e. gambling, sex, dom, etc.): Not at all The [place] is not currently receiving [place] Alcohol/Substance Abuse treatment. The is not interested in a referral for [place] Alcohol/Substance Abuse treatment at this time. has access to firearms: Yes Firearm safety discussed with : Yes Gunlock offered to [place]: Yes - requests 1 gunlock be mailed to him at address in chart. The [place] was offered information on the [place]'s Crisis Line, including contact number: Dial [phone] then Press 1 for Veterans and/or Text Service [phone] LEGAL/FINANCIAL HISTORY The does not report any current legal concerns. The does not report any current personal financial concerns. CURRENT GOALS [place]'s stated overall functional goals: [place] reports he would like to be able to go to the [employer] in [place], [place]. How does the report that the caregiver supports the [place]'s overall goals? [place] reports she does all the cooking, cleaning, laundry, driving, and attending his doctors appointments. He states, without her I would have to be in a custodial. SUPPORT SERVICES The is not currently receiving home care services. Support services currently used:* None Discussion about [place] Personal Care Services and [facility] [place] enrollment/participation: Not applicable = CAREGIVER INPUT SECTION = Caregiver's understanding of the Program of Comprehensive Assistance for caregiver/applicant(s) and why they decided to apply: Primary Family Caregiver Applicant reports [place] is a fall risk and is unable to walk easily by himself. Caregiver's description of [place]'s self-care: The following responses are per Primary Family Caregiver Applicant report: -Feeding: She states [place] is independent with feeding. -Dressing: She states she has to assist with putting on shirts depending on his pain level in right shoulder. -Grooming: She states [place] is independent with grooming. -Bathing: She states is independent with bathing. -Toileting: She states [place] is independent with toileting. -Mobility/Transfers: She states [...] Caregiver Applicant reports it's been hard because [place] was very active and this has been a hard adjustment for him. Type of assistance that the caregiver provides to address [place]'s needs in completing activities of daily living: Please see above. Type of assistance caregiver provides due to neurological, cognitive or mental health needs: Primary Family Caregiver Applicant reports [place] may forget to take his medications, this isn't often. She denies other types of assistance with neurological, cognitive or mental health needs. Caregiver's description of how management lead and meal planning are performed, who performs the duties, and any established routines: Primary Family Caregiver Applicant reports she is responsible for all management lead and meal planning/preparing. [place] needs assistance with the management lead and/or family activities that he completes. Details: Primary Family Caregiver Applicant reports she would have to bring the rollator for him and transport him to any of the places he needed to go. The [place] does not drive independently. The caregiver attends the [place]'s medical and/or mental health appointments with him. Details: Primary Family Caregiver Applicant reports she attends 's medical appointments with him and provides transportation. Caregiver's knowledge and understanding of the treatment recommendations for the [place]: Primary Family Caregiver Applicant reports having a good knowledge and understanding of 's treatment recommendations. The caregiver reports concerns for the 's safety. Caregiver's description of strategies used to address problems [place] has in maintaining safety as well as the type of assistance the caregiver provides: Primary Family Caregiver Applicant reports concern of [place] falling. She states his falls are more [...] Primary Family Caregiver Applicant reports caring for [place]'s feet due to his diabetes. SUMMARY OF VISIT: Electrical Tests Supervisor met with and Primary Family Caregiver Applicant on this date for assessment for [employer] program; and Primary Family Caregiver Applicant were well involved in this assessment. Primary Family Caregiver Applicant is identified as [place]'s spouse with whom he lives. is 90% [...] timeline for record submission. At this time, [place] will be submitting outside medical records from his Physical Therapy; reviewed goal to submit these records within 30 days of VARD. Electrical Tests Supervisor provided psychoeducation regarding [facility] program benefits, eligibility criteria, application steps and option for Veterans to submit outside VA medical records for inclusion in this application. Both and Primary Family Caregiver Applicant verbalized understanding and denied any further questions or needs at this time. Education provided on the [place] Alert. [facility] staff will coordinate the following: [place] Functional Assessment Instrument Caregiver/applicant(s) assessment /cristiane/ BERRY TRIMBLE Sternman, Caregiver Support Program Signed: 10/27/2024 18:19 /es/ [place] BRADSHAW Sternman, Caregiver Support Program Cosigned: 10/30/2024 08:58 10/30/2024 ADDENDUM STATUS: COMPLETED This GROUP WORKER clinical assembly and packing supervisor reviewed this documentation and concurs with the information and impressions contained in this note. The services provided by the [facility] are reviewed during weekly [id number] supervision. The clinical supervision meets, or exceeds, supervision amounts required by the standards of both the National Association of Social Work Boards Accreditation and the [place] Committee for Social Workers. /cristiane/ [place] BRADSHAW Sternman, Caregiver Support Program Signed: 10/30/2024 08:58 BERRY TRIMBLE [facility] Oct 27, 2024 12:33 PM TELEHEALTH NOTE: LOCAL TITLE: V15 [facility] DIGITAL DIVIDE SET-UP REVIEW STANDARD TITLE: TELEHEALTH NOTE DATE OF NOTE: OCT 27, 2024@12:33 ENTRY DATE: OCT 27, 2024@12:33:41 AUTHOR: BERRY TRIMBLE EXP COSIGNER: URGENCY: STATUS: COMPLETED Patient is interested in [facility] Health Care appointments. [facility] requirements have been communicated to the [place]. The [place] confirms understanding of those requirements and indicates the following VVC needs: confirms they have their own VVC capable equipment and/or request a 2nd video test call. The Provider and [place] agree to the use of Telehealth and the confirms they have their own smart device (smart phone, tablet, laptop, or computer) with a camera AND audio. [place] has been informed to call the Office of Connected Care Health Desk([facility]) at [phone] Option 1 for a test call and that a [place] staff member will also call. 'S RIGHT TO DECLINE STATEMENT [place] understands they have the right to decline the use of Telehealth Technology at any time without adverse affects on their continued access to healthcare. /cristiane/ BERRY TRIMBLE Sternman, Caregiver Support Program Signed: 10/27/2024 12:46 BERRY TRIMBLE [facility] Oct 27, 2024 09:09 AM CAREGIVER CERTIFIC ATE: LOCAL TITLE: [facility] PCA ASSESSMENT STANDARD TITLE: CAREGIVER CERTIFICATE DATE OF NOTE: OCT 27, 2024@09:09 ENTRY DATE: OCT 27, 2024@09:10:35 AUTHOR: BERRY TRIMBLE EXP COSIGNER: [place] BRADSHAW URGENCY: STATUS: COMPLETED [facility] Has ADDENDA Program of Comprehensive Assistance for Family Caregivers [place] Assessment The Program of Comprehensive Assistance for [...] identifier(s): Full name: ROSEMARY LEWIS Full SSN: [id number] Date of : Aug Diagnosis: Paroxysmal atrial fibrillation ([facility] [id number]) - Paroxysmal atrial fibrillation (ICD-10-CM I48.0) (Primary) The interview was conducted using the telephone. Reviewed limits of confidentiality with the and caregiver/applicant(s). Brief description of why the [place] and caregiver/applicant(s) are applying to or participating in the program: reports he has trouble getting around, uses a cane and rollator. He states he doesn't do well on stairs, and doesn't cook or do laundry. Primary Family Caregiver Applicant reports [place] is not able to walk well or stand for longer periods ([place] states he can't stand for more than 3 minutes). CURRENT LIVING SITUATION The following live in the [place]'s household: Name: Anel Lewis Age: 82 Relationship: /Primary Family Caregiver Applicant Special needs: The does not provide care for anyone in the household. The [place] does not participate in care of the home or property. The does not drive independently. When did last drive: reports last driving January 2024. Additional information: reports he was driving some before January 23 (surgery on this date) and has not driven since then. EMPLOYMENT HISTORY The is not currently employed. When was [place] last employed? reports he last worked over 20 years ago, when he was 64. EDUCATION HISTORY The has barriers to education. Details of barriers to education: [place] reports his age and physical health as barriers. The [place] is not attending school. The is or wishes to pursue enrollment: No SOCIAL HISTORY What does the [place]'s typical day look like? [place] reports they wake up and eat breakfast. He states he walks around downstairs a bit, watches TV, and may walk outside in his yard briefly. He did not expand on a typical day beyond this. What does the do for leisure/relaxation? states he will play Solitaire or chess on the computer. CURRENT PROVIDERS The [place] currently receiving [place] [facility] or [facility] Primary Care. Provider's name: TITA Diamond The [place] is not currently participating in other VA programs/services. The is not currently receiving [place] Mental Health or Substance Use treatment. The [place] is not currently receiving care outside of [...] reports wanting to learn more about the [place] Alert for Sia due to his falling. The [place] has chronic pain. Pain is primarily located: reports pain from his gastric ulcer, shoulder, and hip (if he walks too much). Expectations for treatment: [place] reports the physical therapy exercises are to [...] him. He states doing them daily. The [place] reports concerns regarding memory and/or cognition. How does this impact 's daily activities? reports having some memory loss and tries to help maintain his memory by playing chess. denies other impacts. The [place] has not had formal testing related to [...] down, depressed, or hopeless Not at all [place] Suicide Severity Rating Scale (C-SSRS) screener 1. [...] sex, dom, etc.): Not at all The [place] not currently receiving [place] Alcohol/Substance Abuse treatment. The [place] is not interested in a referral for [place] Alcohol/Substance Abuse treatment at this time. has access to firearms: Yes Firearm safety discussed with : Yes Gunlock offered to [place]: Yes - requests 1 gunlock be mailed to him at address in chart. The [place] was offered information on the 's Crisis Line, including contact number: [address] [place] Press 1 for Veterans and/or Text Service [phone] LEGAL/FINANCIAL HISTORY The does not report any current legal concerns. The [place] does not report any current personal financial concerns. CURRENT GOALS [place]'s stated overall functional goals: reports he would like to be able to go to the [employer] in [place], [place]. How does the report that the caregiver supports the 's overall goals? reports she does all the cooking, cleaning, laundry, driving, and attending his doctors appointments. He states, without her I would have to be in a custodial. SUPPORT SERVICES The is not currently receiving home care services. Support services currently used:* None Discussion about [place] Personal Care Services and [place] enrollment/participation: Not applicable = CAREGIVER INPUT SECTION = Caregiver's understanding of the Program of Comprehensive Assistance for caregiver/applicant(s) and why they decided to apply: Primary Family Caregiver Applicant reports [place] is a fall risk and is unable to walk easily by himself. Caregiver's description of [place]'s self-care: The following responses are per Primary Family Caregiver Applicant report: -Feeding: She states [place] is independent with feeding. -Dressing: She states she has to assist with putting on shirts depending on his pain level in right shoulder. -Grooming: She states [place] is independent with grooming. -Bathing: She states is independent with bathing. -Toileting: She states [place] is independent with toileting. -Mobility/Transfers: She states [...] Caregiver Applicant reports it's been hard because [place] was very active and this has been a hard adjustment for him. Type of assistance that the caregiver provides to address 's needs in completing activities of daily living: Please see above. Type of assistance caregiver provides due to neurological, cognitive or mental health needs: Primary Family Caregiver Applicant reports [place] may forget to take his medications, this isn't often. She denies other types of assistance with neurological, cognitive or mental health needs. Caregiver's description of how management lead and meal planning are performed, who performs the duties, and any established routines: Primary Family Caregiver Applicant reports she is responsible for all management lead and meal planning/preparing. needs assistance with the management lead and/or family activities that he completes. Details: Primary Family Caregiver Applicant reports she would have to bring the rollator for him and transport him to any of the places he needed to go. The [place] does not drive independently. The caregiver attends the 's medical and/or mental health appointments with him. Details: Primary Family Caregiver Applicant reports she attends [place]'s medical appointments with him and provides transportation. Caregiver's knowledge and understanding of the treatment recommendations for the [place]: Primary Family Caregiver Applicant reports having a good knowledge and understanding of [place]'s treatment recommendations. The caregiver reports concerns for the 's safety. Caregiver's description of strategies used to address problems has in maintaining safety as well as the type of assistance the caregiver provides: Primary Family Caregiver Applicant reports concern of [place] falling. She states his falls are more random with frequency and location. She states [place] told her he was in the garage this past week and he was trying to move a chair (similar to a recliner) and almost fell doing this. Type of preparations the caregiver needs to complete for the [place] in their absence: Primary Family Caregiver Applicant reports making sure [place]ale has food within reach and he is on the lower level of the house so he doesn't have to go on the stairs unsupervised. The Caregiver assists the [place] with the following additional concerns and/or additional care needs: Primary Family Caregiver Applicant reports caring for 's feet due to his diabetes. SUMMARY OF VISIT: Electrical Tests Supervisor met with [place] and Primary Family Caregiver Applicant on this date for assessment for [employer] program; and Primary Family Caregiver Applicant were well involved in this assessment. Primary Family Caregiver Applicant is identified as [place]'s spouse with whom he lives. [place] is 90% Service Connected and identified chronic [...] these records within 30 days of VARD. Electrical Tests Supervisor provided psychoeducation regarding [employer] program benefits, eligibility criteria, application steps and option for Veterans to submit outside VA medical records for inclusion in this application. Both [place] and Primary Family Caregiver Applicant verbalized understanding and denied any further questions or needs at this time. Education provided on the [place] Alert. [facility] staff will coordinate the following: [place] Functional Assessment Instrument Caregiver/applicant(s) assessment /cristiane/ BERRY Paniagua, Caregiver Support Program Signed: 10/27/2024 18:19 /cristiane/ [place] BRADSHAW Sternman, Caregiver Support Program Cosigned: 10/30/2024 08:58 10/27/2024 ADDENDUM STATUS: COMPLETED Primary Family Caregiver Applicant reports wanting to learn more about the [place] Alert device for due to his falling. Please follow up, thank you. /aspen Paniagua, Caregiver Support Program Signed: 10/27/2024 18:20 /aspen BRADSHAW Sternman, Caregiver Support Program Cosigned: 10/30/2024 08:43 Receipt Acknowledged By: * AWAITING SIGNATURE * JANICE DIAMOND * AWAITING SIGNATURE * YUVAL DAS 10/30/2024 ADDENDUM STATUS: COMPLETED This [facility] clinical assembly and packing supervisor reviewed this documentation and concurs with the information and impressions contained in this note. The services provided by the [facility] are reviewed during weekly [id number] supervision. The clinical supervision meets, or exceeds, supervision amounts required by the standards of both the National Association of Social Work Boards Accreditation and the [place] Committee for Social Workers. /aspen BRADSHAW Sternman, Caregiver Support Program Signed: 10/30/2024 08:58 BERRY TRIMBLE [facility]
[2025-04-13 10:01] LABS: Alanine Aminotransferase 42 U/L (6-50); Albumin Level 4.5 g/dL (3.5-5.1); Alkaline Phosphatase 80 U/L (38-126); Anion Gap 11 mmol/L (4-12); Aspartate Amino Transferase 102 U/L (17-59); Bilirubin,Total 0.6 mg/dL (0.2-1.3); Blood Urea Nitrogen 33 mg/dL (9-20); Carbon Dioxide 27 mmol/L (22-30); Chloride 102 mmol/L (98-107); Estimated Glomerular Filt Rate 49; Glucose 183 mg/dL (65-110); Potassium 4.1 mmol/L (3.4-5.0); Sodium 140 mmol/L (137-145); Total Protein 7.8 g/dL (6.3-8.2)
[2025-04-15 02:43] LABS: CA 19-9 <3 U/mL (<34)
== END 2025-04-13 09:11 | disposition home or self-care (01) ==
LOC: ANHLAB 09:11
PROVIDERS: PCP Internal Medicine; Visit Provider Internal Medicine Hematology & Oncology
DX: C23 Malignant neoplasm of gallbladder (principal)
CPT/HCPCS: 36415; 80053; 85025; 86301

== ENCOUNTER 2025-04-15 09:47 | Outpatient (CLI) | payer MEDICARE, SELFPAY ==
--- NOTE | ~2025-04-15 | MR_ITS ---
MRI of the left ankle Clinical history: Peroneal tendinitis Technique: Coronal proton-density and proton-density fat-sat images, axial proton-density and proton- density fat-sat images, and sagittal proton-density and proton-density fat-sat images were acquired. Findings: Syndesmotic ligaments are intact. Anterior and posterior talofibular ligaments, and calcane ofibular ligament are intact. Deltoid ligament intact. Medial flexor tendons, peroneal tendons, anterior extensor tendons, and Achilles tendon are intact. There is no osteochondral lesion of the talar dome. Bone marrow signals and joint spaces are intact. No joint effusion evident. Plantar fascia intact. There is diffuse subcutaneous soft tissue edema circumferentially about the an kle and extending over the dorsum of the foot. Impression: No ligamentous injury or tendon abnormality seen. Extensive circumferential soft tissue edema about the ankle and over the dorsum of the foot, nonspeci fic. Reviewed, dictated and finalized at [facility]. Impression: No ligamentous injury or tendon abnormality seen. Extensive circumferential soft tissue edema about the ankle and over the dorsum of the foot, nonspecific.
== END 2025-04-15 09:48 | disposition home or self-care (01) ==
LOC: GOSHIMG 09:47
PROVIDERS: PCP Internal Medicine; Visit Provider Podiatrist Foot & Ankle Surgery
DX: R60.9 Edema, unspecified (principal); M79.672 Pain in left foot
CPT/HCPCS: 73721

== ENCOUNTER 2025-04-27 08:44 | Outpatient (CLI) | payer MEDICARE, SELFPAY ==
[2025-04-27 10:04] LABS: Alanine Aminotransferase 69 U/L (6-50); Albumin Level 4.1 g/dL (3.5-5.1); Alkaline Phosphatase 59 U/L (38-126); Anion Gap 8 mmol/L (4-12); Aspartate Amino Transferase 65 U/L (17-59); Bilirubin,Total 0.8 mg/dL (0.2-1.3); Blood Urea Nitrogen 28 mg/dL (9-20); Carbon Dioxide 29 mmol/L (22-30); Chloride 102 mmol/L (98-107); Estimated Glomerular Filt Rate 60; Glucose 138 mg/dL (65-110); Potassium 4.8 mmol/L (3.4-5.0); Sodium 139 mmol/L (137-145); Total Protein 7.2 g/dL (6.3-8.2); Uric Acid 3.8 mg/dL (3.5-8.5)
[2025-04-27 10:09] LABS: Parathyroid Intact 30.4 pg/mL (14.5-75.2)
[2025-04-27 10:29] LABS: Add Urine Microscopic? NO; Appearance Urine Clear (Clear); Bilirubin Urine Negative (Negative); Blood Urine Negative (Negative); Color Urine Yellow (Yellow); Glucose Urine UA 3+ mg/dL (Negative); Ketones Urine Negative (Negative); Leukocyte Esterase Ur Negative LEU/UL (Negative); Nitrate Urine Negative (Negative); Protein Urine Negative (Negative); Urobilinogen Urine 0.2 mg/dL (<2.0)
[2025-04-27 10:29] LABS: Hemoglobin A1C 9.3 % (<5.7)
[2025-04-27 10:39] LABS: Vitamin D 25 Hydroxy 54.1 ng/mL
[2025-04-27 11:28] LABS: Potassium Urine Random 51.6 meq/L; Sodium Urine Random 106 meq/L
[2025-04-27 11:40] LABS: MALB Creatinine Ratio < 11.5 mg/g (0-30); Microalbumin Urine Random < 6.0 mg/L (0-16.7)
[2025-04-27 12:07] LABS: Creatinine Urine 54.3 mg/dL; Total Protein Urine Random 6 mg/dL; Ur Ttl Prot Creatinine Ratio 0.11 mg/mg (0-0.20)
[2025-04-28 10:53] LABS: Chloride Rand Ur 109 mmol/L (32-290); Chloride/Creatinine Rand Ur 214 (23-275); Creatinine Random Urine 51 mg/dL (20-320)
[2025-04-28 15:47] LABS: Osmolality, Urine. 614 mOsm/kg (50-1200)
== END 2025-04-27 08:45 | disposition home or self-care (01) ==
LOC: ANHLAB 08:47
PROVIDERS: PCP Internal Medicine; Visit Provider Specialist
DX: N18.30 Chronic kidney disease, stage 3 unspecified (principal); D63.1 Anemia in chronic kidney disease; E87.20 Acidosis, unspecified; B19.10 Unspecified viral hepatitis B without hepatic coma; R60.9 Edema, unspecified; E21.3 Hyperparathyroidism, unspecified; E55.9 Vitamin D deficiency, unspecified; R82.90 Unspecified abnormal findings in urine; R73.09 Other abnormal glucose
CPT/HCPCS: 36415; 80053; 81003; 82043; 82306; 82436; 82570; 83036; 83935; 83970; 84133; 84156; 84300; 84550

== ENCOUNTER 2025-04-29 08:27 | Outpatient (NON) | payer MEDICARE, SELFPAY ==
[2025-04-29 08:34] LABS: Collection Time Urine 24 HOURS
[2025-04-29 10:45] LABS: Creatinine Urine 38.7 mg/dL; Serum Creat 1.15
[2025-04-29 22:43] LABS: Total Volume 24 Hour Urine 2900 ml
[2025-05-04 15:09] LABS: Creatinine Clearance Urine 60.1 ml/min (75-125); Patient Weight 164 Lbs
== END 2025-04-29 08:28 | disposition home or self-care (01) ==
LOC: ANHLAB 08:28
PROVIDERS: PCP Internal Medicine; Visit Provider Specialist
DX: N18.2 Chronic kidney disease, stage 2 (mild) (principal)
CPT/HCPCS: 82575

== ENCOUNTER 2025-05-03 07:42 | Outpatient (CLI) | payer MEDICARE, SELFPAY ==
--- NOTE | ~2025-05-03 | MR_ITS ---
MRI of the abdomen: Clinical indication: Gallbladder neoplasm. Technique: Coronal SSFSE ARC, WATER:coronal LAVA-FLEX, Coronal 2D FIESTA FatSat, Axial SSFSE BH ARC, Axial 3D DualEcho BH, Axial SSFSE-IR, Axial DWI b=500, Axial 2D FIESTA FatSat, pre and dynamic postco ntrast Axial LAVA ARC, postcontrast Coronal In and Opposed phase LAVA FLEX. Following intravenous adm inistration of 15 cc MultiHance gadolinium, T1-weighted fat-sat imaging was performed in the axial an d coronal planes. Findings: There is an irregular masslike lesion within the gallbladder lumen, which demonstrates appa rent postcontrast enhancement, therefore suspicious for gallbladder neoplasm. Lesion measures up to a pproximately 3.3 x 2.1 cm in extent. No evidence for extension beyond the gallbladder lumen.. The com mon bile duct is normal in course and caliber. No filling defects are seen within the CBD. No evidenc e of intrahepatic biliary ductal dilatation. The pancreatic duct is normal in size. Several hepatic cysts are present. Spleen, pancreas, adrenals, kidneys appear normal. The aorta and t he paraaortic regions appear normal. Impression: 3.3 x 2.1 cm irregular/lobulated mass within the gallbladder lumen with enhancement, suspicious for g allbladder neoplasm. No evidence for extension beyond the gallbladder lumen, or any other metastatic disease. Reviewed, dictated and finalized at [facility]. Impression: 3.3 x 2.1 cm irregular/lobulated mass within the gallbladder lumen with enhance ment, suspicious for gallbladder neoplasm. No evidence for extension beyond the gallbladder lumen, or any other metastatic disease.
== END 2025-05-03 07:43 | disposition home or self-care (01) ==
PROVIDERS: PCP Internal Medicine; Visit Provider Internal Medicine Hematology & Oncology
DX: D49.0 Neoplasm of unspecified behavior of digestive system (principal)
CPT/HCPCS: 74183; A9577